=== PATIENT | female | born 1965 | race Caucasian/White ===

== ENCOUNTER 2022-06-21 17:53 | Emergency (ER) | payer OTHER, SELFPAY ==
[2022-06-21 18:19] VITALS: BP 135/81; PULSE 85; RESP 16; TEMP 36.6; O2SAT 98; BMI 33.5
--- NOTE | 2022-06-21 19:16 | CRLHL7_ITS ---
For Patients: As a result of the Century Cures Act, medical imaging exams and procedure reports are released immediately into your electronic medical record. You may view this report before your referring provider. If you have questions, please contact your health care provider. HISTORY: Cough. TECHNIQUE: Portable frontal view the chest. COMPARISON: None. FINDINGS: No airspace consolidation. No pleural effusion or pneumothorax. Pulmonary vasculature and cardiomediastinal silhouette are unremarkable. IMPRESSION: No cardiopulmonary abnormality. Dictated by Franco Baron MD @ 06/21/2022 8:08:46 PM (Electronically Signed)
--- OUTSIDE RECORDS SUMMARY | 2022-06-21 19:21 | XMS_ITS | Encounter Summary ---
:1965 Author Organization [employer] Address [address] [place] [address] Care Team Providers Name Role Phone Needs Pcp, Assignment Primary Care Provider Encounter Details Date Type Department Care Team Description 12/03/2021 delfina Nickerson [phone] Social History Tobacco Use Types Packs/Day Years Used Date Smoking Tobacco: Never Smokeless Tobacco: Never Sex Assigned at Date Recorded Not on file documented as of this encounter Progress Notes [facility], DELFINA PROVIDER - 12/03/2021 7:17 PM CDT delfina Treatment Plan Diagnosis Urinary Tract Infection Visit Date December 04, 2021 Lizzie He Date of : 65 Provider Rand Andrade, Nurse Practitioner Note From Provider Santosh Samuel,Thanks for using delfina. See the attached plan. I sent the Monurol to the pharmacy for you as it looks like we have the Macrobid on your allergy list currently. Hope you feel better soon, Melly Treatment Plan Since you have a bacterial infection, let's try an antibiotic. I sent a prescriptionto [facility] . I've also listed a few of the best ways to soothe your discomfortand some additional self-care tips to get you on the road to feeling better.If your symptoms don't improve after 3 days, or if you havequestions, please select Help to Request a Call Back andwe'll talk about your next steps for free. Order(s) Monurol 3 gram packet Take 1 packet by mouth single dose as directed for 1 day Note: Take as directed dissolved in water. Refills: None Sent To: [facility] [address] [id number] Treatment Plan Self Care Tip Topics Warm Packs Drink Water Avoid Caffeine What to Expect If you follow the recommendations I made on the Treatment tab, your symptomsshould improve in about 3 days. If your symptoms don'timprove after 3 days, or if you have questions, please select Help Jinest a Call Back and we'll helpdetermine your next step for free. What to Watch Out For Give us a call if you experience: ??? High fever ??? Shaking chills ??? Worsening pain with urination ??? Severe pain in your back, abdomen or pelvis My Conditions, Orders, Allergies as of December 04, 2021 Standard condition list Anxiety High Blood Pressure (Hypertension) High Cholesterol (Hyperlipidemia) Underactive Thyroid (Hypothyroid) Fibromyalgia Depression Current orders Monurol (fosfomycin tromethamine) Levoxyl (levothyroxine) Crestor (rosuvastatin) buspirone (buspirone) verapamil (verapamil) levothyroxine (levothyroxine) Cymbalta (duloxetine) Allergies Macrobid (nitrofurantoin monohyd/m-cryst), oral Ceftin (cefuroxime axetil), oral Bactrim (sulfamethoxazole-trimethoprim), oral Augmentin (amoxicillin-pot clavulanate), oral [facility] [facility] We are an online clinic open 02/03. If you have any questions or comments about this visit, please call or email [email or web address]. documented in this encounter Plan of Treatment Not on filedocumented as of this encounter Visit Diagnoses Not on filedocumented in this encounter Care Teams Broadcast Designer Relationship Specialty Start Date End Date Needs Pcp, Assignment PCP - General 11/15/21 [place] [address] documented as of this encounter
--- OUTSIDE RECORDS SUMMARY | 2022-06-21 19:21 | XMS_ITS | Encounter Summary ---
:1965 Author Organization [employer] Address [address] [place] [address] Care Team Providers Name Role Phone Unavailable Primary Care Provider Unavailable Reason for Visit Reason Comments DIZZINESS Encounter Details Date Type Department Care Team Description 03/16/2020 Nurse Triage Careline Unknown, Physician DIZZINESS [address] [place], [place] [address] [place] [address] [phone] (Wo rk) Social History Tobacco Use Types Packs/Day Years Used Date Smoking Tobacco: Never Assessed Sex Assigned at Date Recorded Not on file documented as of this encounter Nursing Notes Nitza Vasquez RN - 03/16/2020 8:03 PM CDT Verified patient identity: yes Situation/Background (brief explanation of current symptoms/situation): Pt states she was diagnosed with kidney infection yesterday. She was started on levofloxacin. States her dizziness and back pain are worse. No fever. Does the patient currently have any of these Covid symptoms? (Shortness of Breath/Difficulty of breathing, Sore Throat, Fever, Cough, New loss of smell or loss of taste) No Covid19 Symptoms - Other symptoms If directing the patient to schedule an appointment or be seen in the appropriate urgent care: In the last 14 days have you had close contact with a person known to have COVID-19 or been instructed to self-isolate? No and negative for COVID symptoms - okay to schedule or send to any site Reviewed with patient pertinent medical history(as it related to the call): Yes kidney infection. Reviewed with patient pertinent medications (as they relate to call): Yes Reviewed with patient pertinent allergies (as they relate to call): Yes Reason for Disposition ? ? [1] Taking antibiotics > 24 hours AND [2] symptoms WORSE Protocols used: INFECTION ON ANTIBIOTIC FOLLOW-UP SKPA-HAEBY-TI PLAN: Advised patient to be seen at the ED or to call her PCP office for further recommendation. Patient verbalized understanding and agrees with plan. Advised patient/caller to call back CareLine if there are further questions. The CareLine is available 02/03. Nitza Vasquez RN 03/16/2020, 8:10 PM Cielo Gonzalez - 03/16/2020 7:59 PM CDT Verified patient identity using three identifiers: Yes Caller's relationship to patient: Self At which care system or clinic is the patient normally seen? [facility] Symptoms Describe the reason for call/symptoms (include location and duration if applicable): pt states she was diagnosed with a kidney infection yesterday and today she feels very dizzy. Plan:Caller transferred directly to CareLine nurse. documented in this encounter Plan of Treatment Not on filedocumented as of this encounter Visit Diagnoses Not on filedocumented in this encounter
--- OUTSIDE RECORDS SUMMARY | 2022-06-21 19:21 | XMS_ITS | Encounter Summary ---
:1965 Author Organization [facility] Address [address] [facility] [address] Care Team Providers Name Role Phone Harriet Haley MD Primary Care Provider [phone] Reason for Visit Reason Comments Urgent Care Dysuria Frequency, Urgency, Hesitanc y, Odor, Nuctoria x4, Pelvic pain, back pain, L flank pain x2 days. Encounter Details Date Type Department Care Team Description 05/12/[address] [facility] Darshan German, Acute c ystitis without hematuria (Primary Dx); Urgent Care Shaan kelly PA-C Dysuria [address] [place] [address] [phone] Social History Tobacco Use Types Packs/Day Years Used Date Smoking Tobacco: Former Cigarettes Quit : 09/15/2015 Smokeless Tobacco: Never Alcohol Use Standard Drinks/Week Comments Yes 0 (1 standard drink = 0.6 oz pure alcoho l) SMALL Sex Assigned at Date Recorded Not on file documented as of this encounter Last Filed Vital Signs Vital Sign Reading Time Taken Comments Blood Pressure 132/72 05/12/2017 7:51 PM CDT Pulse 90 05/12/2017 7:51 PM CDT Temperature 36.8 ??C (98.2 ??F) 05/12/2017 7:51 PM CDT Respiratory Rate - - Oxygen Saturation 97% 05/12/2017 7:51 PM CDT Inhaled Oxygen Concentration - - Weight - - Height - - Body Mass Index - - documented in this encounter Progress Notes Darshan German PA-C - 05/12/2017 7:35 PM CDT SUBJECTIVE: Lizzie He is a 51 year old female who presents today for a possible UTI. Symptoms of dysuria, urgency, frequency, hesitancy, suprapubic pain and pressure and nausea have been going on for 2day(s). Hematuria no. sudden onset and still presentand moderate. There is no history of fever, chills, nausea or vomiting. No history of vaginal discharge. This patient does have a remote, intermittant history of urinary tract infections. Patient denies long duration, rigors, flank pain, temperature > 101 degrees F. and Vomiting, significant nausea or diarrhea or vaginal discharge Past Medical History: Diagnosis Date ??? Anxiety ??? Cerebral infarction (H) ??? Depressive disorder ??? Herpes zoster without mention of complication ??? Migraine, unspecified, without mention of intractable migraine without mention of status migrainosus ??? Thyroid disease Current Outpatient Prescriptions Medication ??? ciprofloxacin (CIPRO) 500 MG tablet ??? azithromycin (ZITHROMAX) 250 MG tablet ??? predniSONE (DELTASONE) 20 MG tablet ??? traMADol (ULTRAM) 50 MG tablet ??? order for DME ??? ARIPiprazole (ABILIFY) 2 MG tablet ??? ASPIRIN NOT PRESCRIBED (INTENTIONAL) ??? order for DME ??? oxyCODONE (ROXICODONE) 5 MG immediate release tablet ??? acetaminophen (TYLENOL) 500 MG tablet ??? ibuprofen (ADVIL,MOTRIN) 600 MG tablet ??? order for DME ??? Verapamil HCl (CALAN SR PO) ??? DULoxetine HCl (CYMBALTA PO) ??? LEVOTHYROXINE SODIUM PO No current facility-administered medications for this visit. Social History Substance Use Topics ??? Smoking status: Former Smoker Quit date: 09/15/2015 ??? Smokeless tobacco: Never Used ??? Alcohol use 0.0 oz/week 0 Standard drinks or equivalent per week Comment: SMALL ROS: Review of systems negative except as stated above. OBJECTIVE: BP 132/72 (BP Location: Right arm, Patient Position: Chair, Cuff Size: Adult Regular) Pulse 90 Temp 98.2 ??F (36.8 ??C) (Oral) SpO2 97% GENERAL APPEARANCE: healthy, alert and no distress RESP: lungs clear to auscultation - no rales, rhonchi or wheezes CV: regular rates and rhythm, normal S1 S2, no murmur noted ABDOMEN: soft, nontender She has suprapubic tenderness to palpation and reproduces her sense to urinate. BACK: No CVA tenderness SKIN: no suspicious lesions or rashes Lab: Results for orders placed or performed in visit on 05/12/17 Urine Microscopic Result Value Ref Range WBC Urine 5-10 (A) OTO2^O - 2 /HPF RBC Urine 10-25 (A) OTO2^O - 2 /HPF Squamous Epithelial /LPF Urine Few FEW^Few /LPF Bacteria Urine Few (A) NEG^Negative /HPF ASSESSMENT: Lower, uncomplicated urinary tract infection. PLAN: Drink plenty of fluids. Prevention and treatment of UTI's discussed. Signs and symptoms of pyelonephritis mentioned. Follow up with primary care physician if not improving Risks and benefits of medication(s) gone over. Patient voiced understanding. Specifically went over risks of fluoroquinolone of, but not limited to, early or late tendon ruptureand complications. Patient voiced understanding. Acute cystitis without hematuria - ciprofloxacin (CIPRO) 500 MG tablet; Take 1 tablet (500 mg) by mouth 2 times daily for 10 days Dispense: 20 tablet; Refill: 0 documented in this encounter Nursing Notes Rachna Alston CMA - 05/12/2017 7:35 PM CDT Images from the original note were not included. Chief Complaint Patient presents with ??? Urgent Care ??? Dysuria Initial BP 132/72 (BP Location: Right arm, Patient Position: Chair, Cuff Size: Adult Regular) Pulse 90 Temp 98.2 ??F (36.8 ??C) (Oral) SpO2 97% Estimated body mass index is 33.45 kg/(m^2) as calculated from the following: Height as of 09/28/16: 5' 8 (1.727 m). Weight as of 09/28/16: 220 lb (99.8 kg). Medication Reconciliation: complete Rachna Alston CMA (AAMA) documented in this encounter Plan of Treatment Not on filedocumented as of this encounter Procedures Procedure Name Priority Date/Time Associated Diagnosis Comme nts URINE MICROSCOPIC Routine 05/12/2017 7:50 PM Dysuria Resu lts for this CDT procedure are i n the results section. documented in this encounter Results (ABNORMAL) Urine Microscopic (05/12/2017 7:50 PM CDT) [facility] gist Method Time Signature WBC Urine 5-10 (A) OTO2^O - 2 05/12/2017 [facility] /HPF 8:12 PM CDT [facility] RBC Urine 10-25 (A) OTO2^O - 2 05/12/2017 [facility] /HPF 8:12 PM CDT [facility] Squamous Few FEW^Few 05/12/2017 [facility] /LPF /LPF 8:12 PM CDT [facility] Bacteria Urine Few (A) NEG^Negati 05/12/2017 [facility] /HPF 8:12 PM CDT [facility] Specimen Anatomical Collection Method Collection Time Receive d Time (Source) Location / / Volume Laterality 05/12/2017 7:50 PM 7 7:51 CDT PM CDT Darshan German PA-C LAB - URINE ORDERABLES Performing Organization Address City/State/ZIP Code Phon e Number [facility] [id number] [place] [address] documented in this encounter Visit Diagnoses Diagnosis Acute cystitis without hematuria - Prima ry Acute cystitis Dysuria documented in this encounter Care Teams Educational Technologist Relationship Specialty Start Date End Date Harriet Haley MD PCP - General Physician Brand Coordinator 10/01/15 [facility] [address] [place] [address] documented as of this encounter
--- OUTSIDE RECORDS SUMMARY | 2022-06-21 19:21 | XMS_ITS | Encounter Summary ---
:1965 Author Organization [facility] Address [address] [place] [address] Care Team Providers Name Role Phone Unavailable Primary Care Provider Unavailable Encounter Details Date Type Department Care Team Description 05/01/2003 [place] Conversion Only [facility] [place] [address] [place] [address] Social History Tobacco Use Types Packs/Day Years Used Date Smoking Tobacco: Never Assessed Sex Assigned at Date Recorded Not on file documented as of this encounter Progress Notes Chon Beebe MD - 05/01/2003 12:01 AM CDT Progress Notes signed by Chon Beebe MD at 05/04/03 0906 Author: Chon Beebe MD Service: (none) Author Type: Physician Filed: 11/28/10 1608 Note Time: 05/01/03 0001 Status: Signed Bag Shop Worker: Chon Beebe MD (Physician) NAME: LIZZIE GRIFFITHS MR: [id number] ACCT: [id number] VISIT: [id number] DICTATING CLINICIAN: CHON BEEBE MD JOB: [id number] CLINIC PROGRESS NOTE DATE OF VISIT: 05/01/2003 SUBJECTIVE: She is a 37-year-old female complaining of having a migraine for about five days now. It is usually left sided. She is familiar with the headache she is having now. She has had some nasal congestion. The headache by now is pretty much diffuse. She has had some nausea and photophobia. She had some bloody discharge when she blew her nose. ADR/ALLERGIES: NONE. MEDICATIONS: Imitrex and Fioricet, which she tried, but is not helping. OBJECTIVE: VS: BP: 155/73. T: 96.6. P: 102. R: 16. The patient does not look ill, perhaps somewhat photophobic. HEENT: Unremarkable. No cervical lymphadenopathy. Neck is supple. Cranial nerves II-XII grossly intact. Power in upper and lower extremities grossly normal, with good symmetry. She is normal reflexic. ASSESSMENT: PLAN: I ordered for her Demerol 100 mg/Vistaril 50 mg IM. Upon discharge the patient was feeling much better. Will go home to take a nap and drink plenty of fluids. Come back on a per-needed basis. TT: CT: OS:[id number] C: 05/02/03 13:51 DOCUMENT: [id number] documented in this encounter Plan of Treatment Not on filedocumented as of this encounter Visit Diagnoses Not on filedocumented in this encounter
--- OUTSIDE RECORDS SUMMARY | 2022-06-21 19:21 | XMS_ITS | Encounter Summary ---
:1965 Author Organization [facility] Address [address] [place] [address] Care Team Providers Name Role Phone Unavailable Primary Care Provider Unavailable Encounter Details Date Type Department Care Team Description 10/28/2001 PN Conversion Only [facility] [place] [address] [address] [place] [address] [phone] Social History Tobacco Use Types Packs/Day Years Used Date Smoking Tobacco: Never Assessed Sex Assigned at Date Recorded Not on file documented as of this encounter Progress Notes Luis Enrique Mortensen - 10/28/2001 12:01 AM CST Progress Notes signed by Luis Enrique Mortensen MD at 06/11/022021 Author: Luis Enrique Mortensen MD Service: (none) Author Type: Physician Filed: 11/28/10 0457 Note Time: 10/28/01 0001 Status: Signed Starch Factory Laborer: Luis Enrique Mortensen MD (Physician) IMPRESSION: No dictation required. URI, otalgia. SUBJECTIVE: See Urgent Care shingle of 10/28/01. OBJECTIVE: N/A ASSESSMENT: 1. URI. 2. Otalgia. PLAN: Rapid strep test negative. Symptomatic care discussed using ibuprofen, Tylenol, fluids, and rest. Reassess as needed. TT: CT: DMR:[id number] C: DOCUMENT: [id number] Anjum Armstrong MBBS - 04/29/2001 12:01 AM CDT Progress Notes signed by Anjum Ziegler MD at 06/11/022021 Author: Anjum Ziegler MD Service: (none) Author Type: Physician Filed: 11/28/10 0053 Note Time: 04/29/01 0001 Status: Signed Starch Factory Laborer: Anjum Ziegler MD (Physician) IMPRESSION: No dictation required. URI. Sinusitis. SUBJECTIVE: This is a no dictation. See URI shingle. OBJECTIVE: See URI shingle. ASSESSMENT: 1. URI. 2. Sinusitis. PLAN: 1. Symptomatic care. 2. Increase fluids. 3. Decrease smoking or stop smoking. 4. the patient was given a prescription for amoxicillin 500 mg p.o. t.i.d. for 10 days. The patient will wait a few days before starting the antibiotics. If she starts getting better with decongestants and symptomatic care, she is not going to use the antibiotics. She understands the instructions. Will follow up with primary care physician in a week to 10 days. Return to clinic p.r.n. worsening symptoms. [facility]:[id number] C: DOCUMENT: [id number] Fatimah Valles MD - 05/03/1997 12:01 AM CDT Progress Notes signed by at 05/15/97 1703 Author: Fatimah Diego MD Service: (none) Author Type: (none) Filed: 11/27/10 0105 Note Time: 05/03/97 0001 Status: Signed Starch Factory Laborer: Graciela Salazar IMPRESSION: Headache with neck stiffness. SUBJECTIVE: The patient is a 31-year-old woman whose chief complaint is severe headache. She rates this a 10/10, which started earlier this morning and is worsening during the day. She is quite dizzy when she tries to sit up. She has pain in her ears and her frontal sinuses, and upper teeth. She did have upper respiratory infection symptoms last week. She is complaining of photophobia. She denies nausea. She said the headache is constant and involves the entire head at this time. She also complains of body aches and a stiff neck. She has not noted any fever, but she has been taking Tylenol for discomfort. She is also complaining of intermittent right hand numbness. No subjective body weakness. No history of migraine headaches. No history of injury. MEDICATIONS: None. ALLERGIES: None. OBJECTIVE: Temperature 98.4. Pulse 96. Respirations 20. Blood pressure 122/70. In general she appears quite ill, guarding her eyes from the light, lying on the examination table. HEENT: The pupils are equal, round, and reactive to light. EOMs are intact. Fundi appear normal. Neck muscles are tender to the touch. There is limited range of motion secondary to stiffness and pain. Heart and lung exam is normal. She is grossly neurologically intact. She is given 800 mg of ibuprofen. Water's view of the sinuses are negative. CBC with differential: White blood cell count slightly elevated at 11,400 with a left shift on the differential. ASSESSMENT: Headache with neck stiffness. PLAN: Patient was turned over to the care of Dr. Tomlinson, who evaluated her again in Urgent Care and admitted her to the hospital. [facility] NA Salazar [facility] - 03/02/1997 12:01 AM CDT Progress Notes signed by at 06/11/022021 Author: Graciela Conversion Service: (none) Author Type: (none) Filed: 11/27/10 0018 Note Time: 03/02/97 0001 Status: Signed Starch Factory Laborer: Graciela Salazar IMPRESSION: No dictation required. SUBJECTIVE: N/A OBJECTIVE: N/A ASSESSMENT: N/A PLAN: N/A [facility] SCHEDULED RESOURCE: JAMAAL BLANCAS / JÚNIOR. Rosie Colunga MD - 01/04/1997 12:01 AM CDT Progress Notes signed by Rosie Montano MD at 01/19/97 1236 Author: Rosie Montano MD Service: (none) Author Type: Physician Filed: 11/26/10 4777 Note Time: 01/04/97 0001 Status: Signed Starch Factory Laborer: Rosie Montano MD (Physician) IMPRESSION: Urinary tract infection. SUBJECTIVE: 30-year-old female had urinary symptoms starting a week ago. She was seen and prescription was Septra for bladder infection. [place] a little better for 2 days but still continues to have dysuria and some frequency. Denies any fever, chills, nausea or vomiting. No abdominal pain but some suprapubic discomfort. No flank pain or back pain. No vaginal discharge. No hematuria. PAST MEDICAL HISTORY: Negative. MEDICATIONS: Septra. Pyridium. ADVERSE DRUG REACTIONS: NONE. OBJECTIVE: T: 98.1. P: 68. R: 20. BP: 118/70. Abdomen is soft. There is mild suprapubic tenderness. There is no CVA tenderness. No flank pain. UA shows leukocytes esters positive 25 to 50 WBCs, moderate bacteria. ASSESSMENT: Urinary tract infection. PLAN: Patient's UA on 12/29 shows similar changes, 25 and 50 WBCs. As she continues with the infection, a urine culture was ordered and also prescription for Cipro 500 mg po bid x 7 days given. Recheck if any worsening, fevers develop. Call back in 2 days for the urine culture results. mkz Brandon Wagner MD - 12/29/1996 12:01 AM CDT Progress Notes signed by Brandon Wagner MD at 03/15/98 1332 Author: Brandon Wagner MD Service: (none) Author Type: Physician Filed: 11/26/10 2671 Note Time: 12/29/96 0001 Status: Signed Starch Factory Laborer: Brandon Wagner MD (Physician) IMPRESSION: Cystitis. SUBJECTIVE: L[age]hcq-ypyy-old female who is complaining of urinary frequency, burning. Evidently did have a bladder infection first time about a month ago. Has no vaginal symptoms at this time. Has some abdominal discomfort, minimal back discomfort but has had no fever. OBJECTIVE: Positive leukocyte esterase in the urine. ASSESSMENT: Cystitis. PLAN: Trimethoprim Sulfa DS 1 b.i.d. x 7 days. bls Darshan Helton MD - 11/14/1996 12:01 AM CDT Progress Notes signed by Darshan Dumont MD at 12/01/96 0911 Author: Darshan Dumont MD Service: (none) Author Type: Physician Filed: 11/26/10 3821 Note Time: 11/14/96 0001 Status: Signed [employer] Factory Laborer: Darshan Dumont MD (Physician) IMPRESSION: Urticaria. SUBJECTIVE: 31-year-old who broke out in hives on Thursday. 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 She was ill on Thursday with vomiting, nausea, and spent most of the day in bed. Thursday she felt better, but the hives have gradually spread. They were first noted on her hands and then spread to include essentially her entire body now. She is having no difficulty breathing, and feels fine on the outside, just itchy on the outside. Adverse Drug Reactions: None. Medications: None. OBJECTIVE: T: 98.6 P: 88 R: 16 BP: 130/80. She does have generalized urticaria. ENT unremarkable. Throat is clear. Tongue is normal size. Lungs are clear without wheezes. ASSESSMENT: Urticaria. PLAN: Claritin 10 qd for a week. Prednisone 20 bid for three days. She needs to follow up for recurrence. tlg Shayy Velasco MD - 10/05/1996 12:01 AM CST Progress Notes signed by Shayy Frias MD at 11/24/97 1517 Author: Shayy Frias MD Service: (none) Author Type: Physician Filed: 11/26/10 8502 Note Time: 10/05/96 0001 Status: Signed [employer] Laborer: Shayy Frias MD (Physician) IMPRESSION: Urinary tract infection. SUBJECTIVE: Mariusz Jeremy is a 30-year-old female who had acute onset of bladder spasms and dysuria today, with urgency. Associated with this is some discomfort into the back a bit lower than the flank area and discomfort in the upper abdomen that moves around to the lower abdomen. She has not vomited. She has not had diarrhea. Her last urine infection was a few years ago. In June she was seen with pelvic pain and dysuria with a negative Chlamydia, GC, and normal urine at that time, treated with TCN. She has the same sexual partner for the past eight months. Her last menstrual period was the end of August for three to four days. Her cycles have been increasing to just more than 30 days. In July it lasted for seven days with more heavy flow. However, the August period was of normal duration. Her last Pap was in November of last year and she has a plan for follow- up this year. She has had six pregnancies with two C-sections and four children. OBJECTIVE: T: 99. R: 24. P: 84. BP: 112/82. On exam, this is a healthy-appearing, slightly overweight female, grimacing somewhat in discomfort, but in no acute distress. She has no costovertebral angle tenderness. On abdominal exam, she has normal and quiet bowel sounds, no rebound or guarding, no masses felt. The tenderness is at the suprapubic area and it seems to be in the area of the bladder. On pelvic exam, she has a mild erythema around the lower perineum and anus with a few satellite papules onto the gluteal areas. There is no visible discharge. The vaginal mucosa itself looks normal. On bimanual exam there is no adnexal tenderness. However, she is tender when pressure involves the area of the bladder. Movement of the cervix does not increase the pain. There is a slight amount of normal-appearing discharge at the cervical os. A Chlamydia swab was taken from there and a vaginal swab for Sarah. The urinalysis was definitely positive with moderate blood, positive leukocyte esterase and 50-99 white blood cells per high powered field. The Sarah test was negative and the Chlamydia pending. ASSESSMENT: Urinary tract infection. PLAN: We have given her Trimethoprim sulfa double strength, 1 bid for 3 days with Pyridium 200 mg q 8 hours, 10 tablets, suggesting she may need two or three of these. She is to make a follow-up appointment with her primary provider. lap Kimberly Vences MD - 06/22/1996 12:01 AM CST Progress Notes signed by Kimberly Vences MD at 08/01/96 1843 Author: Kimberly Vences MD Service: (none) Author Type: Physician Filed: 11/26/102123 Note Time: 06/22/96 0001 Status: Signed [employer] Laborer: Kimberly Vences MD (Physician) IMPRESSION: Pelvic pain with dysuria. SUBJECTIVE: This woman has burning with urination and frequency over the last two days. She has had a little bit of itching and possible low back pain. She has had 10 days of lower abdominal pain. No fever. Bowel movements have been normal. MEDICATIONS: Ibuprofen. ALLERGIES: None. OBJECTIVE: Last menstrual period was 06/06/96. Blood pressure 104/86. Pulse 78. Respirations 16. Temperature 97.7. Abdomen: Bowel sounds are normal. There is tenderness to palpation in the right and left lower quadrants, and suprapubic area without guarding or rebound. The patient has had a tubal ligation. Pelvic examination shows a small amount of yellowish discharge in the os. Wet prep is negative. There is moderate pain with cervical motion. The uterus is mid-position and so the fundus is not palpable. There is bilateral adnexal tenderness without mass. Urinalysis today is normal. ASSESSMENT: Pelvic pain with dysuria. PLAN: I am concerned about the possibility of PID. A GC and Chlamydia tests are sent. Doxycycline 100 mg, #20, is prescribed. She is advised that her partner should be treated, or she should avoid intercourse until all the tests are back and she sees a communications operator. She will set up an appointment to be rechecked at the end of this week or early next week. TJ Evie Iqbal MD - 06/03/1996 12:01 AM CDT Progress Notes signed by Evie Vyas MD at 06/19/96 1643 Author: Evie Vyas MD Service: (none) Author Type: Physician Filed: 11/26/102111 Note Time: 06/03/96 0001 Status: Signed [employer] Factory Laborer: Evie Vyas MD (Physician) IMPRESSION: Mild acne, benign nevi, recurrent nevus, skin tags. SUBJECTIVE: Mariusz Loyola is a 30-year-old female here for moles on her left axilla, abdomen, left neck and posterior neck. They have been present for as long as she can remember. Some of them increase in size with . She also has a rash consisting of acne-like bumps on her face and chest. She notes blackheads and whiteheads in particular. This has been a problem for the last one to two years. The mole in her suprapubic area rubs against her clothing as well as the one on her left foot. She had a mole removed on her left forehead that was burned off and has regrown. She dislikes the terminal hairs that emanate from within it. It occasionally becomes irritated. She is on Lysine. No known adverse drug reactions. It is unclear whether there is a family history of melanoma but there is a history of some type of skin cancer in the patient's uncle. OBJECTIVE: On examination, on the patient's left forehead is a 4 x 3 mm, dome-shaped, light brown pigmented papule with some evidence of scarring. She has some central terminal hairs emanating from within it. It is well circumscribed. She has skin-colored, pedunculated soft papules on her left neck and a number in the left axilla. On her suprapubic area is a 7 x 7 mm, soft, skin-colored papule. She has a similarly-appearing lesion on her left dorsal foot and on her face are a scattering of closed comedones. On the lateral temples and cheeks as well as on her chest, she has a very few small inflammatory papules. ASSESSMENT: 1) Mild acne, primarily comedonal. The patient was instructed on proper acne-prone skin care. She has trouble with various moisturizers causing irritation or breakouts. She will use Cleocin T lotion b.i.d. and Benzac AC 2 1/2% gel very sparingly one to two times a day. Discussed irritation and bleaching of clothing. 2) Skin tags on neck and axilla. Reassurance given. A number of the lesions in the axilla were treated with liquid nitrogen. 3) Benign nevi, suprapubic area and foot. The lesion on the suprapubic area was removed by shave biopsy means after discussion of the bleeding, infection, scarring, the rare side effects of local anesthesia and recurrence. It was removed because it was being irritated by clothing. 2% lidocaine with epinephrine was used for local anesthesia and aluminum chloride hemostasis was obtained. Antibacterial ointment, Band-Aid and wound care instructions were given. She will return in the future for the left foot lesion if it is bothersome enough. 4) Recurrent nevus, left forehead. Clinically this looks fine. Discussed electrolysis for the terminal hair growth. PLAN: N/A. cc: Evie Vyas M.D., Dermatology, [place]. [facility]/[id number] ERCIAL ACCOUNT EXECUTIVE [facility], [facility] - 02/03/1996 12:01 AM CDT Progress Notes signed by at 06/11/022021 Author: Graciela Conversion Service: (none) Author Type: (none) Filed: 11/26/102001 Note Time: 02/03/96 0001 Status: Signed [employer] Laborer: Graciela Salazar IMPRESSION: No dictation required. SUBJECTIVE: N/A OBJECTIVE: N/A ASSESSMENT: N/A PLAN: N/A [facility] SCHEDULED RESOURCE: JAMAAL BLANCAS / JÚNIOR. ERCIAL ACCOUNT EXECUTIVE Conversion, [facility] - 12/02/1995 12:01 AM CDT Progress Notes signed by at 06/11/022021 Author: Graciela Conversion Service: (none) Author Type: (none) Filed: 11/26/101925 Note Time: 12/02/95 0001 Status: Signed [employer] Laborer: Graciela Salazar IMPRESSION: No dictation required. SUBJECTIVE: N/A OBJECTIVE: N/A ASSESSMENT: N/A PLAN: N/A [facility] SCHEDULED RESOURCE: JAMAAL BLANCAS / JÚNIOR. Darshan Padilla MD - 10/19/1995 12:01 AM CST Progress Notes signed by Darshan Dumont MD at 11/01/95 1626 Author: Darshan Dumont MD Service: (none) Author Type: Physician Filed: 11/26/10 1900 Note Time: 10/19/95 0001 Status: Signed [employer] Laborer: Darshan Dumont MD (Physician) IMPRESSION: Hip and knee contusions. 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 There's a little soreness in her right shoulder. She was stunned and laid there for about 5 minutes, she thinks. She called for help, no one was around, so she eventually got up. She went to class today and was evaluated by her supervisors, who thought she should be seen. She has some occasional numbness in her left leg below her knee laterally. ADVERSE DRUG REACTIONS: None. MEDICATIONS: Ibuprofen. OBJECTIVE: T: 99.6. P: 84. R: 16. BP: 134/84. She has good range of motion of her upper extremities, some mild soreness in her left shoulder. Strength, sensation, reflexes are normal. She has some tenderness diffusely over her left hip. She has marked tenderness over the lateral aspect of her knee. There's no instability. There's some pain with valgus stress. Strength, sensation, and reflexes are intact, although there is some swelling over the fibular head in the area of the peroneal nerve. X-ray of her hip and knee are done, which are normal. ASSESSMENT: Hip and knee contusions. PLAN: Discussed symptomatic therapy, crutch-walking, anti- inflammatories, Tylenol #3 for pain. She'll follow up as needed. pjv Penny Lau MD - 10/05/1995 12:01 AM CST Progress Notes signed by Penny Isaacs MD at 10/23/95 1220 Author: Penny Isaacs MD Service: (none) Author Type: Physician Filed: 11/26/10 1852 Note Time: 10/05/95 0001 Status: Signed [employer] Factory Laborer: Penny Isaacs MD (Physician) IMPRESSION: 1. Otitis media. 2. Sinusitis. 3. Rash. SUBJECTIVE: Mariusz is a 29-year-old who has had sinus congestion, purulent nasal drainage, and a cough for one week. She has pain above the teeth and behind the eyes. There has been no fever. She does smoke. She has also had a pruritic rash on the chest and right forearm. She is also complaining of a couple of lesions on her face and some bloody drainage when she blows her nose. MEDICATIONS: None. ALLERGIES: None. Temperature 98.4. Pulse 72. Respirations 16. Blood pressure 124/84. OBJECTIVE: Left TM is erythematous and dull. Right is normal. She has tenderness over the bridge of the nose. Nasal mucosa looks inflamed and erythematous. There is no obvious sign of bleeding, and no scabs. Beneath the nose she has a crusted area that looks like an impetigo, as well as under her right eye. Her lungs are clear. Cardiovascular: Regular rate and rhythm without murmur. She has an erythematous patch of scaling irregular border, measuring about dime- size. It is not exactly circular, on the upper chest. She has 1-2 mm, three small, erythematous maculopapular lesions on the right forearm. These on the chest could be consistent with tinea corporis or eczematous lesion. ASSESSMENT: 1. Otitis media. 2. Sinusitis. 3. Rash. PLAN: She is given Keflex 500 mg t.i.d. x two weeks. This could treat the impetiginous lesions as well as the sinusitis and otitis media. I gave her samples of Diprolene to be used on the body for the rash. If that does not show some signs of improvement in 3-5 days, she should uptwist spinner some [id number] Lotrimin. Also suggested using Bacitracin in the nose b.i.d., and add humidity to her home. [facility] Darshan Padilla MD - 04/15/1995 12:01 AM CDT Progress Notes signed by Darshan Dumont MD at 05/08/952029 Author: Darshan Dumont MD Service: (none) Author Type: Physician Filed: 11/26/10 1738 Note Time: 04/15/95 0001 Status: Signed Starch Factory Laborer: Drashan Dumont MD (Physician) IMPRESSION: Ankle strain/contusion. SUBJECTIVE: 29-year-old hit her left ankle three days ago. This was on a hard plastic milk case. Her toes are having spasms, and she is limping on occasion. She is on her feet all day with four kids. Temperature 99.3. Pulse 88. Respirations 16. Blood pressure 114/70. ALLERGIES: None. MEDICATIONS: Prozac. OBJECTIVE: She has tenderness over the lateral aspect of her ankle. Pain with inversion. ASSESSMENT: Ankle strain/contusion. PLAN: Air cast. Discussed symptomatic therapy. Follow up as needed. [facility] documented in this encounter Plan of Treatment Not on filedocumented as of this encounter Procedures Procedure Name Priority Date/Time Associated Comments Diagnosis STREP GROUP A Routine 10/28/2001 8:53 PM Results for this ANTIGEN TEST COMMERCIAL ACCOUNT EXECUTIVE procedure are i n the results section. BETA STREP FOLLOWUP Routine 10/28/2001 8:53 PM Re sults for this COMMERCIAL ACCOUNT EXECUTIVE procedure are i n the results section. ANC RESULT Routine 05/03/1997 4:17 PM Results f or this CONVERSION DEFAULT CDT procedure are in ORDER the results section. ANC RESULT Routine 10/19/1995 12:08 PM Results for this CONVERSION DEFAULT COMMERCIAL ACCOUNT EXECUTIVE procedure are in ORDER the results section. ANC RESULT Routine 10/19/1995 12:08 PM Results for this CONVERSION DEFAULT COMMERCIAL ACCOUNT EXECUTIVE procedure are in ORDER the results section. ANC RESULT Routine 04/15/1995 9:47 AM Results f or this CONVERSION DEFAULT CDT procedure are in ORDER the results section. documented in this encounter Results Strep Group A Antigen Test (10/28/2001 8:53 PM COMMERCIAL ACCOUNT EXECUTIVE) Analysis Performed At [facility] Time Signature Strep Group A Negative Negative HP CONVERSION Antigen Test Comment: Culture to follow. Specimen (Source) Anatomical Collection Method Collection Time Re ceived Time Location / / Volume Laterality 10/28/2001 8:53 PM COMMERCIAL ACCOUNT EXECUTIVE Luis Enrique M Festus MD LAB_1 Performing Organization Address City/State/ZIP Code Phon e Number HP CONVERSION Beta Strep Followup (10/28/2001 8:53 PM COMMERCIAL ACCOUNT EXECUTIVE) athologist Signature Strep Screen SEE TEXT HP CONVERSION Comment: Patient: MARIUSZ LOYOLA Rapid Strep Follow up Culture @ ? Collected: ?2052 Source: Throat ?Processed: ?2053 ? 1V Final Report ------ ?[id number] ??1332 No beta hemolytic Strep group A isolated . @ = Rapid F/U Cult Performed at [address] [place], [place] Specimen (Source) Anatomical Collection Method Collection Time Re ceived Time Location / / Volume Laterality 10/28/2001 8:53 PM COMMERCIAL ACCOUNT EXECUTIVE Luis Enrique Mortensen MD LAB_1 Performing Organization Address City/State/ZIP Code Phon e Number HP CONVERSION Anc Result Conversion Default Order (05/03/1997 4:17 PM CDT) Anatomical Region Laterality Modality Other Specimen (Source) Anatomical Location Collection Method / Collectio n Time Received Time / Laterality Volume Narrative 05/03/1997 4:17 PM CDT CLINICAL DATA: ?DIZZINESS, EAR AND FACIAL PAIN FOR 5 DAYS FINDINGS: ?? S3 ?? LIMITED EXAMINATION SHOWS NO RADIOGR APHIC ABNORMALITY OF THE ?? VISUALIZED PARANASAL SINUSES. TECH-ID : ? JOSE TRANS-ID: Procedure Note Ronni Garza - 10/17/2016 CLINICAL DATA: DIZZINESS, EAR AND FACIAL PAIN FOR 5 DA YS FINDINGS: S3 LIMITED EXAMINATION SHOWS NO RADIOGRAPH IC ABNORMALITY OF THE VISUALIZED PARANASAL SINUSES. TECH-ID : JOSE TRANS-ID: Fatimah Diego MD RAD GD Anc Result Conversion Default Order (10/19/1995 12:08 PM COMMERCIAL ACCOUNT EXECUTIVE) Anatomical Region Laterality Modality Other Specimen (Source) Anatomical Location Collection Method / Collectio n Time Received Time / Laterality Volume Narrative 10/19/1995 12:08 PM COMMERCIAL ACCOUNT EXECUTIVE CLINICAL DATA: ?FELL ON THE ICE THIS AM FINDINGS: ?NO ACUTE BONE OR JOINT ABNORMALITY . ??THERE IS SOME MILD SCLEROSIS ?ABOUT THE LOWER PORTIONS OF BOTH S I JOINTS. ??SPINA BIFIDA OCCULTA OF ?S2--NORMAL VARIANT-- WELL SLI GHT DEVIATION OF THE COCCYX TO THE ?LEFT WHICH MAY REPRESENT DEVELOPME NTAL VARIANT OR OLD POST-TRAUMATIC ?CHANGE. TECH-ID : ? OO TRANS-ID: ? LAP Procedure Note Mario Arreola MD - 10/17/2016Format ting of this note might be different from the original. CLINICAL DATA: FELL ON THE ICE THIS AM FINDINGS: NO ACUTE BONE OR JOINT ABNORMALITY. THE RE IS SOME MILD SCLEROSIS ABOUT THE LOWER PORTIONS OF BOTH SI BENSON NTS. SPINA BIFIDA OCCULTA OF S2--NORMAL VARIANT-- WELL SLIGHT D EVIATION OF THE COCCYX TO THE LEFT WHICH MAY REPRESENT DEVELOPMENTAL VARIANT OR OLD POST-TRAUMATIC CHANGE. TECH-ID : OO TRANS-ID: LAP Darshan Dumont MD RAD GD Anc Result Conversion Default Order (10/19/1995 12:08 PM COMMERCIAL ACCOUNT EXECUTIVE) Anatomical Region Laterality Modality Other Specimen (Source) Anatomical Location Collection Method / Collectio n Time Received Time / Laterality Volume Narrative 10/19/1995 12:08 PM COMMERCIAL ACCOUNT EXECUTIVE CLINICAL DATA: ?FELL ON THE ICE THIS AM FINDINGS: ?NEGATIVE. TECH-ID : ? OO TRANS-ID: ? LAP Procedure Note Mario Arreola MD - 10/17/2016Format ting of this note might be different from the original. CLINICAL DATA: FELL ON THE ICE THIS AM FINDINGS: NEGATIVE. TECH-ID : OO TRANS-ID: LAP Darshan EASTON Anc Result Conversion Default Order (04/15/1995 9:47 AM CDT) Anatomical Region Laterality Modality Other Specimen (Source) Anatomical Location Collection Method / Collectio n Time Received Time / Laterality Volume Narrative 04/15/1995 9:47 AM CDT CLINICAL DATA: ?HIT L OUTER ANKLE 3 DAYS AGO, PAIN RADIATING UP LEG AND ?NUMBNESS IN TOES FINDINGS: ?NEGATIVE. TECH-ID : ? 25 TRANS-ID: ? LEB Procedure Note Mario Arreola MD - 10/17/2016Format ting of this note might be different from the original. CLINICAL DATA: HIT L OUTER ANKLE 3 DAYS AGO, PAIN RADI ATING UP LEG AND NUMBNESS IN TOES FINDINGS: NEGATIVE. TECH-ID : 25 TRANS-ID: LEB Darshan EASTON documented in this encounter Visit Diagnoses Not on filedocumented in this encounter
--- OUTSIDE RECORDS SUMMARY | 2022-06-21 19:21 | XMS_ITS | Encounter Summary ---
:1965 Author Organization [place] Address [address] [place] [address] Care Team Providers Name Role Phone Harriet Haley MD Primary Care Provider [phone] Reason for Visit Reason Comments RECHECK Encounter Details Date Type Department Care Team Description 07/08/2016 Office Visit [facility] Magui, Jossy Villaseñor, ress fracture of Sports Medicine DO metatarsal bone of [facility] [place] [facility] left foot with [id number] [employer] [facility] routine healing [address] (Primary Dx) [place] [address] [address] [place], [place] [address] (Wo rk) Social History Tobacco Use Types Packs/Day Years Used Date Smoking Tobacco: Former Cigarettes Quit : 09/15/2015 Smokeless Tobacco: Never Alcohol Use Standard Drinks/Week Comments Yes 0 (1 standard drink = 0.6 oz pure alcoho l) SMALL Sex Assigned at Date Recorded Not on file documented as of this encounter Last Filed Vital Signs Vital Sign Reading Time Taken Comments Blood Pressure 146/80 07/08/2016 11:03 AM DIRECTOR OF COMPENSATION Pulse 101 07/08/2016 11:03 AM DIRECTOR OF COMPENSATION Temperature - - Respiratory Rate - - Oxygen Saturation - - Inhaled Oxygen Concentration - - Weight 99.8 kg (220 lb) 07/08/2016 11:03 AM DIRECTOR OF COMPENSATION Height 172.7 cm (5' 8) 07/08/2016 11:03 AM DIRECTOR OF COMPENSATION Body Mass Index 33.45 07/08/2016 11:03 AM DIRECTOR OF COMPENSATION documented in this encounter Patient Instructions Patient InstructionsJossy Kilgore DO - 07/08/2016 11:57 AM CST Thank you for allowing us to participate in your care today. Please find below your visit diagnosis and the plan going forward. 1. Stress fracture of metatarsal bone of left foot with routine healing Discussed your history, pain and exam In regards to stress injury - you appears to be doing well. Continue with boot as previously. In regards to great toe - currently 3 days out. Xray reviewed and no obvious fracture. Re-reviewed MRI from 7 weeks ago and no evidence of stress/marrow edema. Will not repeat MRI at this time given that treatment would be protected weightbearing. If not improving over 2 weeks or worsening then will consider repeat MRI. Follow up on MyChart in regards to great toe. If doing well, then follow-up in 3-4 weeks to access stress injury (sooner if needed; call direct clinic number [[phone]] at any time with questions or concerns) Jossy Kilgore DO CAQSM [facility] CTOR OF COMPENSATION documented in this encounter Progress Notes Jossy Kilgore DO - 07/08/2016 11:04 AM CST [facility] Visit Jul 08, 2016 PCP: Harriet Haley Subjective: Lizzie He is a 50 year old female who is seen in follow-up for Stress fracture of metatarsal bone of left foot with routine healing that began 10 week(s) ago. They were last seen 06/09/2016. The patient is seen by themselves. They are returning to clinic as directed from previous visit. Since their last visit she has been wearing her boot very consistently especially early on. She indicates that her foot was feeling better,so she was occasioanlly not wearing her boot at home. She reports that on 07/06/2016 she had gotten home from work, took her boot off to rest, went to stand up to change clothes and felt a pop in her big toe that sent pain all the way up her body. She was seen at urgent care who took xrays (see below), prescribed Farwell and gave her crutches. She used the crutches until she got home. They indicate that their pain level is 6/10. They have tried CAM Boot, norco (from Urgent Care). Patient's past medical, surgical, social, and family histories were reviewed today and no changes are noted. Review of Systems: Constitutional: NEGATIVE for fever, chills, change in weight Skin: NEGATIVE for worrisome rashes, moles or lesions GI/: NEGATIVE for bowel or bladder changes Neuro: NEGATIVE for weakness, dizziness or paresthesias Objective: BP 146/80 mmHg Pulse 101 Ht 5' 8 (1.727 m) Wt 220 lb (99.791 kg) BMI 33.46 kg/m2 General: healthy, alert and in no distress HEENT: no scleral icterus or conjunctival erythema Skin: no suspicious lesions or rash. No jaundice. CV: No pedal edema Resp: normal respiratory effort without conversational dyspnea Psych: normal mood and affect Gait: Not wearing her cam Walker today Neuro: Motor strength as noted below, decreased sensation over lateral aspect of great toe and medial aspect of 2nd phalanx, including webspace. Remainder of foot has normal sensation. MSK: LEFT FOOT Inspection: ?? No swelling over distal foot / metatarsal heads. Trace swelling over great toe/medial aspect of the foot. Palpation: ?? Tender over distal 3rd met, less tender over 2nd. No longer tender over the distal 4th met. Tender over distal aspect of 1st met. Non-tender over phalanx of great toe. Range of Motion: ?? Full ROM of the ankle Strength: ??Ankle strength - grossly intact Independent visualization of the below image: LEFT FOOT THREE OR MORE VIEWS?? 07/06/2016 10:55 AM ? HISTORY: Pain in left toe(s). ?? COMPARISON: May 08, 2016. ? IMPRESSION: Bones are normally aligned. Moderate inferior calcaneal heel spur. No acute fracture. ? FABRICE ORNELAS MD ASSESSMENT & PLAN ICD-10-CM 1. Stress fracture of metatarsal bone of left foot with routine healing M84.375D Currently 10.4 weeks from date of injury, 4 weeks from when she started wearing the boot consistently. MRI dated 06/16 confirmed stress reaction. Was doing well and painfree in the boot regarding stress injuries in 2nd and 3rd met. No resting pain. Had an acute injury to big toe - stubbed it appx 2 weeks ago (no noticable/persistent pain at that time) but then 3 days ago stood up outside of the boot and had immediate pain in the great toe. In regards to stress injury - appears to be doing well. Has essentially been compliant in the boot x4 weeks. sliver lap tender on palpation. Continue with boot as previously. In regards to great toe - currently 3 days out. Xray personally reviewed and no obvious fracture. Re-reviewed MRI from 7 weeks ago and no evidence of stress/marrow edema. Will not repeat MRI at this time given that treatment would be protected weightbearing. If not improving over 2 weeks or worsening then consider repeat MRI. Follow up in 4 weeks. Call direct clinic number [phone] at any time with questions or concerns.Instructed to call the office if the condition evolves or worsens. Patient's conditions were thoroughly discussed during today's visit with greater than 50% of the visit spent counseling the patient with total time spent [id number] with the patient being 25 minutes. Jossy Kilgore DO [facility] CTOR OF COMPENSATION documented in this encounter Nursing Notes Carlos Roth - 07/08/2016 11:04 AM CST Chief Complaint Patient presents with ??? RECHECK Initial BP 146/80 mmHg Pulse 101 Ht 5' 8 (1.727 m) Wt 220 lb (99.791 kg) BMI 33.46 kg/m2 Estimated body mass index is 33.46 kg/(m^2) as calculated from the following: Height as of this encounter: 5' 8 (1.727 m). Weight as of this encounter: 220 lb (99.791 kg). BP completed using cuff size: mamadou Roth ATC CTOR OF COMPENSATION documented in this encounter Plan of Treatment Not on filedocumented as of this encounter Visit Diagnoses Diagnosis Stress fracture of metatarsal bone of le ft foot with routine healing - Primary documented in this encounter Care Teams Acute Coordinator Relationship Specialty Start Date End Date Harriet Haley MD PCP - General Physician Licensed Tax Consultant 10/01/15 [facility] [address] [place] [address] documented as of this encounter
--- OUTSIDE RECORDS SUMMARY | 2022-06-21 19:21 | XMS_ITS | Encounter Summary ---
:1965 Author Organization [place] Address [address] [place] [address] Care Team Providers Name Role Phone Harriet Haley MD Primary Care Provider [phone] Reason for Visit Reason Onset Date Comments Foot Pain 07/10/2016 Encounter Details Date Type Department Care Team Description 07/10/2016 Telephone [facility] Jossy Florentino DO Foot Pain Medicine [facility] [place] [address] [address] [facility] [address] [place] [address] [place] [address] [phone] (Wo rk) Social History Tobacco Use Types Packs/Day Years Used Date Smoking Tobacco: Former Cigarettes Quit : 09/15/2015 Smokeless Tobacco: Never Alcohol Use Standard Drinks/Week Comments Yes 0 (1 standard drink = 0.6 oz pure alcoho l) SMALL Sex Assigned at Date Recorded Not on file documented as of this encounter Miscellaneous Notes Telephone Encounter - Kalyani Cardona RN - 07/10/2016 5:05 PM CST Patient left voicemail stating Dr Kilgore was to send a prescription to the pharmacy for tramadol. Not sure if she has sent it yet. Prescription called to [facility] and left message informing patient. Erasmo Cardona RN TRIC WELDER HELPER Telephone Encounter - Carlos Roth - 07/10/2016 12:30 PM CST I called lizzie to verify that her pain is radiating from the foot up and not the back down. She reports that it indeed is the foot up radiating. She indicates that her foot is about the same as the other day when she was in, therefore still no new imaging needed. I spoke with Dr. Kilgore and she approved a refill for Tramadol. This was added and forwarded for signature. Carlos Roth ATC Approved, printed and signed. Jossy Kilgore DO, [facility] TRIC WELDER HELPER Telephone Encounter - Kalyani Cardona RN - 07/10/2016 8:56 AM CST Reason for Call: patient calls stating she saw Dr. Kilgore on 07/08/16. Had been doing well with painup until last night. Left foot/leg and back started hurting last night. Worked a 12 hr shift and just got home. She took her boot off this am and foot is throbbing. Pain radiates up both anterior and posterior leg to back. Has previous back issues that she thinks are aggravated by wearing the boot. Has been wearing a high soled clog on the right foot to help compensate. Having pain while lying down. Wanting to know what she can take for pain so she can sleep. Slight swelling on top of left great toe. Denies redness. Current Treatments: ibuprofen 800mg around 6 am without relief. Treatment plan from prior OV: In regards to stress injury - appears to be doing well.?? Has essentially been compliant in the boot x 4 weeks.?? strapping machine tender on palpation.?? Continue with boot as previously. In regards to great toe - currently 3 days out.?? Xray personally reviewed and no obvious fracture. Re-reviewed MRI from 7 weeks ago and no evidence of stress/marrow edema.?? Will not repeat MRI at this time given that treatment would be protected weightbearing.?? If not improving over 2 weeks or worsening then consider repeat MRI. Follow up in 4 weeks. Recommended she ice and elevate at this time. Last OV date: 07/08/16 Next OV Date: Visit date not found Patient expecting call back: Yes Preferred contact number: , ok to lm Please advise. Erasmo Cardona, RN TRIC WELDER HELPER documented in this encounter Plan of Treatment Not on filedocumented as of this encounter Visit Diagnoses Diagnosis Stress fracture of right foot with routi ne healing, subsequent encounter - Primary documented in this encounter Care Teams Insurance Adjustor Relationship Specialty Start Date End Date Harriet Haley MD PCP - General Physician Pattern Assembler 10/01/15 [facility] [address] [place] [id number] documented as of this encounter
--- OUTSIDE RECORDS SUMMARY | 2022-06-21 19:21 | XMS_ITS | Encounter Summary ---
:1965 Author Organization [facility] [employer] Address [address] [place] [address] Care Team Providers Name Role Phone Unavailable Primary Care Provider Unavailable Encounter Details Date Type Department Care Team Description 12/07/1995 PN Conversion Only [place]EC[facility]AL[place] [address] [place] [address] (Wo rk) Social History Tobacco Use Types Packs/Day Years Used Date Smoking Tobacco: Never Assessed Sex Assigned at Date Recorded Not on file documented as of this encounter Plan of Treatment Not on filedocumented as of this encounter Procedures Procedure Name Priority Date/Time Associated Comments Diagnosis CONVERSION DEFAULT Routine 12/02/1995 2:20 PM Res ults for this INTERFACE ORDER CDT procedure ar e in the results section. documented in this encounter Results Conversion Default Interface Order (12/02/1995 2:20 PM CDT) P athologist Signature PAP Smear See Detail HP CONVERSION Comment: NAME:LIZZIE LOYOLA ?CERVICAL CYTOLOGY REPORT Pathology # ??[id number] ?Date Obtained: ?Date Received: LMP: ?11-20-95 CLINICAL HIST ? 1ST HERE. CERVICAL SMEAR SPECIMEN ADEQUACY: ?? Satisfactory. ENDOCERVICAL CELLS: ??Present. CYTOLOGIC IMPRESSION: Within Normal Limits (Negative). Verified 12/09/95 by: ??LL ? (electronic signature) Elijah WITT M.D., Director of Cyt opathology Specimen (Source) Anatomical Collection Method Collection Time Re ceived Time Location / / Volume Laterality 12/02/1995 2:20 PM CDT Lab Conversion LAB_1 Performing Organization Address City/State/ZIP Code Phon e Number HP CONVERSION documented in this encounter Visit Diagnoses Not on filedocumented in this encounter
--- OUTSIDE RECORDS SUMMARY | 2022-06-21 19:21 | XMS_ITS | Encounter Summary ---
:1965 Author Organization [facility] Address [address] [place] [address] Care Team Providers Name Role Phone Unavailable Primary Care Provider Unavailable Encounter Details Date Type Department Care Team Description 10/10/2005 PN Conversion Only [place] [facility] [address] [facility] [place] [address] Social History Tobacco Use Types Packs/Day Years Used Date Smoking Tobacco: Never Assessed Sex Assigned at Date Recorded Not on file documented as of this encounter Plan of Treatment Not on filedocumented as of this encounter Visit Diagnoses Not on filedocumented in this encounter
--- OUTSIDE RECORDS SUMMARY | 2022-06-21 19:21 | XMS_ITS | Encounter Summary ---
:1965 Author Organization [email or web address] Address [address] [place] [address] Care Team Providers Name Role Phone Unavailable Primary Care Provider Unavailable Reason for Visit Reason Comments INFECTION, KIDNEY VOMITING Encounter Details Date Type Department Care Team Description 03/18/2020 Nurse Triage Careline Unknown, INFECTION, KIDNEY; [address] Physician VOMITING [place], [place] [address] [phone] [place], [place] [id number] Social History Tobacco Use Types Packs/Day Years Used Date Smoking Tobacco: Never Assessed Sex Assigned at Date Recorded Not on file documented as of this encounter Nursing Notes Sarina Burdick RN - 03/18/2020 11:09 AM CDT Reason for Disposition ??? Patient sounds very sick or weak to the triager Protocols used: URINARY TRACT INFECTION ON ANTIBIOTIC FOLLOW-UP CALL - [id number] Pt to go back to Er at [facility] due to cloudy urine and back pain again and rapid pulse and nauseaagain after feeling better yesterday. Pt asked if in agreement with plan of care. Pt verbalized understanding and agreeable to plan. Pt advised to be seen immediately or call back if questions or problems or worsening sx. Susan Jc RN. Sarina Burdick RN - 03/18/2020 11:05 AM CDT Verified patient identity: yes Situation/Background (brief explanation of current symptoms/situation): Pt has a kidney infection and seen in Er thursday and yesterday she was ok and today she is vomiting. She continues to have side and back pain Nausea again today and back hurts again. Does the patient currently have any of [...] medical history(as it related to the call): There is no problem santino file for this patient. Bladder infection last and it turned into a kidney infection . Seen in ER Thursday night Reviewed with patient pertinent medications (as they relate to call): No current outpatient medications on file. No current facility-administered medications for this visit. She is taking levofloxacin 750 mg and taking it once a day for 10 days. Reviewed with patient pertinent allergies (as they relate to call): Allergies not on file Anitra Zimmerman - 03/18/2020 10:57 AM CDT Verified patient identity using three identifiers: Yes Caller's relationship to patient: Self At which care system or clinic is the patient normally seen? [facility] Symptoms Describe the reason for call/symptoms (include location and duration if applicable): Pt has treatment questions regarding vomiting - states that she has a kidney infection Plan:The current callback time to speak with a nurse is 3 hrs. If your symptoms change or worsen, orif you have not received a call back in the stated timeframe, please call us back documented in this encounter Plan of Treatment Not on filedocumented as of this encounter Visit Diagnoses Not on filedocumented in this encounter
--- OUTSIDE RECORDS SUMMARY | 2022-06-21 19:21 | XMS_ITS | Encounter Summary ---
:1965 Author Organization [facility] Address [address] [place] [address] Care Team Providers Name Role Phone Harriet Haley MD Primary Care Provider [phone] Reason for Visit Reason Onset Date Comments Patient Reminder 02/17/2018 Call for appointment 02/19/18 Encounter Details Date Type Department Care Team Description 02/17/2018 Telephone [facility] Jacy Arredondo, Patient Reminder (Call and IBD employee benefits administrator for appointment [address] [facility] 02/19/18) [address] [place] [address] [phone] Social History Tobacco Use Types Packs/Day Years Used Date Smoking Tobacco: Former Cigarettes Quit : 09/15/2015 Smokeless Tobacco: Never Alcohol Use Standard Drinks/Week Comments Yes 0 (1 standard drink = 0.6 oz pure alcoho l) SMALL Sex Assigned at Date Recorded Not on file documented as of this encounter Miscellaneous Notes Telephone Encounter - Jacy Arredondo LPN - 02/17/2018 3:28 PM CDT Called and left message reminding patient of appointment for 02/19/18 at 7:40AM. documented in this encounter Plan of Treatment Not on filedocumented as of this encounter Visit Diagnoses Not on filedocumented in this encounter Care Teams Furniture Packer Relationship Specialty Start Date End Date Harriet Haley MD PCP - General Physician Administrative Services Specialist 10/01/15 [facility] [address] [place] [address] documented as of this encounter
--- OUTSIDE RECORDS SUMMARY | 2022-06-21 19:21 | XMS_ITS | Encounter Summary ---
:1965 Author Organization [place] Address [address] [place] [address] Care Team Providers Name Role Phone Harriet Haley MD Primary Care Provider [phone] Encounter Details Date Type Department Care Team Description 04/15/2017 Radiant Appointment [facility] [place] [address] [id number] Social History Tobacco Use Types Packs/Day Years [...] Name Priority Date/Time Associated Diagnosis Comme nts XR FOOT RIGHT G/E 3 Routine 04/15/2017 8:11 PM Right foot pain Results for this VIEWS CDT procedure are i n the results section. documented in this encounter Results XR Foot Right G/E 3 Views (04/15/2017 8:11 PM CDT) Anatomical Region Laterality Modality Foot, Ankle Right Computed Radiography Specimen (Source) Anatomical Location Collection Method / Collectio n Time Received Time / Laterality Volume Impressions 04/16/2017 4:52 PM CDT IMPRESSION: 1. Question hammertoe deformity of the t hird and fourth toes. 2. No fracture or malalignment. YONATAN HAMLIN MD Narrative 04/16/2017 4:52 PM CDT RIGHT FOOT THREE OR MORE VIEWS ??04/15/2017 8:11 PM HISTORY: Pain in right foot. COMPARISON: Contralateral (left) foot x- rays dated 07/06/2016. FINDINGS: There is no fracture, joint sp britney loss, malalignment, or erosion. Mild hyperflexion of the third and fourth toe proximal interphalangeal joints could represent h ammertoe deformity in the appropriate clinical setting. This could also be secondary to positioning of the patient. Procedure Note Yonatan Hamlin MD - 04/16/2017Form atting of this note might be different from the original. RIGHT FOOT THREE OR MORE VIEWS 04/15/2017 8:11 PM HISTORY: Pain in right foot. COMPARISON: Contralateral (left) foot x- rays dated 07/06/2016. FINDINGS: There is no fracture, joint sp britney loss, malalignment, or erosion. Mild hyperflexion of the third and fourth toe proximal interphalangeal joints could represent h ammertoe deformity in the appropriate clinical setting. This could also be secondary to positioning of the patient. IMPRESSION: 1. Question hammertoe deformity of the t hird and fourth toes. 2. No fracture or malalignment. YONATAN HAMLIN MD Briana Banuelos MD IMG DIAGNOSTIC IMAGING ORDER NATALY documented in this encounter Visit Diagnoses Diagnosis Right foot pain Pain in limb documented in this encounter Care Teams Groundman/Lineman Relationship Specialty Start Date End Date Harriet Haley MD PCP - General Physician Oil Burner Mechanic 10/01/15 [facility] [address] [place] [address] documented as of this encounter
--- OUTSIDE RECORDS SUMMARY | 2022-06-21 19:21 | XMS_ITS | Encounter Summary ---
:1965 Author Organization [facility] Address [address] [place] [address] Care Team Providers Name Role Phone Harriet Haley MD Primary Care Provider [phone] Encounter Details Date Type Department Care Team Description 01/05/2021 Records - [facility] CONVERSION Provider, Histor ica Social History Tobacco Use Types Packs/Day Years [...] Name Priority Date/Time Associated Diagnosis Comme nts CT MISC FCIS ORDER Routine 05/26/2005 12:00 AM Re sults for this CDT procedure are i n the results section. CT MISC FCIS ORDER Routine 05/26/2005 12:00 AM Re sults for this CDT procedure are i n the results section. documented in this encounter Results CT Misc Order (05/26/2005 12:00 AM CDT) Anatomical Region Laterality Modality Computed Tomography Specimen (Source) Anatomical Location Collection Method / Collectio n Time Received Time / Laterality Volume Narrative 05/26/2005 12:00 AM CDT See Historical Hospital Medical Record f or documentation Procedure Note Provider, Historical - 01/05/2021Formatt ing of this note might be different from the original. See Historical Hospital Medical Record f or documentation Historical Provider IMG CT ORDERABLES CT Misc Order (05/26/2005 12:00 AM CDT) Anatomical Region Laterality Modality Computed Tomography Specimen (Source) Anatomical Location Collection Method / Collectio n Time Received Time / Laterality Volume Narrative 05/26/2005 12:00 AM CDT See Historical Hospital Medical Record f or documentation Procedure Note Provider, Historical - 01/05/2021Formatt ing of this note might be different from the original. See Historical Hospital Medical Record f or documentation Historical Provider IMG CT ORDERABLES documented in this encounter Visit Diagnoses Not on filedocumented in this encounter Care Teams Truck Assembler Relationship Specialty Start Date End Date Harriet Haley MD PCP - General Physician Wheel Aligner 10/01/15 [facility] [address] [place] [address] documented as of this encounter
--- OUTSIDE RECORDS SUMMARY | 2022-06-21 19:21 | XMS_ITS | Encounter Summary ---
:1965 Author Organization [facility] Address [address] [place] [address] Care Team Providers Name Role Phone Harriet Haley MD Primary Care Provider [phone] Reason for Visit Reason Comments Leg Pain bilateral leg pain and swell ing Encounter Details Date Type Department Care Team Description 06/26/2016 [facility] Rebecca Bean, Peripheral edema Emergency Dept [address] [facility] [place], [place] [address] [place] [address] [place] [address] [phone] (Wo rk) Social History Tobacco Use Types Packs/Day Years Used Date Smoking Tobacco: Former Cigarettes Quit : 09/15/2015 Smokeless Tobacco: Never Alcohol Use Standard Drinks/Week Comments Yes 0 (1 standard drink = 0.6 oz pure alcoho l) SMALL Sex Assigned at Date Recorded Not on file documented as of this encounter Last Filed Vital Signs Vital Sign Reading Time Taken Comments Blood Pressure 119/66 06/26/2016 11:46 PM PRODUCT SAFETY TEST ENGINEER Pulse 103 06/26/2016 8:56 PM PRODUCT SAFETY TEST ENGINEER Temperature 36.8 ??C (98.3 ??F) 06/26/2016 8:56 PM PRODUCT SAFETY TEST ENGINEER Respiratory Rate 14 06/26/2016 11:55 PM PRODUCT SAFETY TEST ENGINEER Oxygen Saturation 96% 06/26/2016 11:48 PM PRODUCT SAFETY TEST ENGINEER Inhaled Oxygen Concentration - - Weight 109.4 kg (241 lb 2.9 oz) 06/26/2016 8:56 PM PRODUCT SAFETY TEST ENGINEER Height 172.7 cm (5' 8) 06/26/2016 8:56 PM PRODUCT SAFETY TEST ENGINEER Body Mass Index 36.67 06/26/2016 8:56 PM PRODUCT SAFETY TEST ENGINEER documented in this encounter Discharge Instructions Discharge InstructionsVan Rebecca Casanova MD - 06/26/2016 11:39 PM PRODUCT SAFETY TEST ENGINEER Images from the original note were not included. Leg Swelling in Both Legs Swelling of the feet, ankles, and legs is called edema. It is caused by excess fluid that has collected in the tissues. Extra fluid in the body settles in the lowest part because of gravity. This is why the legs and feet are most affected. Some of the causes for edema include: ?? Disease of the heart like congestive heart failure ?? Standing or sitting for long periods of time. Sitting with your legs in the down position may do this. ?? Infection of the feet or legs ?? Blood pooling in the veins of your legs (venous insufficiency) ?? Dilated veins in your lower leg (varicose veins) ?? Garters or other clothing that is tight on your legs. This will cause blood to pool in your legs because the clothing limits blood flow. ?? Some medicines. These include hormones like control pills. They also include some blood pressure medicines like calcium channel blockers and steroids. Other medicines include some antidepressants like MAO inhibitors and tricyclics. ?? Menstrual periods that cause you to retain fluids ?? Many types of renal disease ?? Liver failure??or cirrhosis ?? . Some swelling is normal, but a sudden increase in leg swelling or weight gain can be asign of a dangerous complication of .. ?? Poor nutrition Medical treatment will depend on what is causing the swelling in your legs. Your health care provider may prescribe water pills (diuretics) to get rid of the extra fluid. Home care Follow these guidelines when caring for yourself at home: ?? Don't wear clothing like garters that is tight on your legs. ?? Keep your legs up while lying or sitting. ?? If infection, injury, or recent surgery is causing the swelling, stay off your legs as much as possible until symptoms get better. ?? If your health care provider says that your leg swelling is caused by venous insufficiency or varicose veins, don't sit or molding machine operator one place for long periods of time. Take breaks and walk about every few hours. Brisk walking is a good exercise. It helps circulate the blood that has collected in your leg. Talk with your provider about using support stockings to stop daytime leg swelling. ?? If your provider says that heart disease is causing your leg swelling, follow a low-salt diet to stop extra fluid from staying in your body. Follow-up care Follow up with your health care provider, or as advised. When to seek medical advice Call your health care provider right away if any of these occur: ?? New shortness of breath or chest pain ?? Shortness of breath or chest pain that gets worse ?? Swelling in both legs or ankles that gets worse ?? Swelling of the abdomen ?? Redness, warmth, or swelling in one leg ?? Fever of 100.4??F (38??C) or higher, or as directed by your health care provider ?? Yellow color to your skin or eyes ?? Rapid, unexplained weight gain ? [id number] [employer]. [address] [place] [address]. All rights reserved. This information is not intended as a substitute for professional medical care. Always follow your healthcare professional's instructions. UCT SAFETY TEST ENGINEER documented in this encounter Medications at Time of Discharge Medication Sig Dispensed Refills Start Date End Date acetaminophen (TYLENOL) Take 2 tablets (1,000 0 0 10/03/2015 500 MG mg) by mouth 3 times tabletIndications: daily For one week then Acute low back pain change to as needed. Do not take other tylenol/acetaminophen medications. ARIPiprazole (ABILIFY) Take 1 tablet (2 mg) by 30 tablet 0 06/26/2016 2 MG tablet mouth At Bedtime ASPIRIN NOT PRESCRIBED continuous prn for 0 (INTENTIONAL) other Antiplatelet medication not prescribed intentionally due to {CHOOSE REASON BEFORE SIGNING!!!:231077} DULoxetine HCl Take 120 mg by mouth 0 (CYMBALTA PO) every evening ibuprofen Take 1 tablet (600 mg) 120 tablet 0 10/03/2015 (ADVIL,MOTRIN) 600 MG by mouth every 8 hours tabletIndications: as needed for other Acute low back pain (mild pain) LEVOTHYROXINE SODIUM PO Take 88 mcg by mouth 0 daily order for Equipment being 1 Device 0 05/09/2016 DMEIndications: Left ordered: The following foot pain items were dispensed: Roll-a-bout for possible stress fracture/reaction of the left foot. order for Equipment being ordered: Cane (E0100) 1 Device 0 10/03/2015 DMEIndications: Acute Treatment Diagnosis: Acute back pain low back pain oxyCODONE (ROXICODONE) Take 1 tablet (5 mg) by 12 tablet 0 11/13/2015 5 MG immediate release mouth every 4 hours as tablet needed for pain Verapamil HCl (CALAN SR Take 120 mg by mouth 0 PO) every morning documented as of this encounter ED Notes Tresa Cassidy RN - 06/26/2016 11:55 PM CST A/O. VSS. PIV removed. Pt verbalized understanding of d/c instructions and ambulated to [facility]. 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 Pt refused to remove bra for EKG UCT SAFETY TEST ENGINEER Rebecca Thompson MD - 06/26/2016 9:23 PM CST History Chief Complaint: Leg Pain HPI Lizzie He is a 50 year old female who presents to the emergency department today for evaluation of bilateral leg pain and swelling. Patient notes that leg swelling started yesterday, with pain and warmth this morning. She also reports LLQ abdominal pain, and presents today with concern for DVT. Patient had been in boot for 1 month for treatment of stress fractures in right foot and recentlystarted Abilify. She no longer has gallbladder. Patient denies recent illness, fever, cough, shortness of breath, and chest pain. No other concerns were voiced at this time. PE/DVT Risk Factors: The patient denies a personal or family history of PE, DVT. The patient denies any recent travel, surgery, or other prolonged immobilization. The patient hormone use. Patient does report history of stroke and tobacco use. Medications:? Oxycodone Tylenol Ibuprofen Miralax Lyrica Chantix Calan Cymbalta Levothyroxine Abilify Past Medical History:? Migraine Herpes Zoster ?? Past Surgical History:? C section x2 Appendectomy Cholecystectomy Head and neck surgery Family History:? Father: Diabetes, HTN Mother: HTN, Thyroid Social History: Marital Status:?? [2] The patient is a former smoker (quit date: 09/15/2015). The patient is positive for alcohol use. Review of Systems Constitutional: Negative for fever. Respiratory: Negative for cough and shortness of breath. Cardiovascular: Positive for leg swelling. Negative for chest pain. Gastrointestinal: Positive for abdominal pain (LLQ). Musculoskeletal: Positive for myalgias (bilateral legs). All other systems reviewed and are negative. Physical Exam First Vitals: BP: 125/77 mmHg Pulse: 103 Temp: 98.3 ??F (36.8 ??C) Height: 172.7 cm (5' 8) Weight: 109.4 kg (241 lb 2.9 oz) SpO2: 97 % Physical Exam Constitutional: She is cooperative. HENT: Right Ear: Tympanic membrane normal. Left Ear: Tympanic membrane normal. Mouth/Throat: Oropharynx is clear and moist and mucous membranes are normal. Eyes: Conjunctivae are normal. Neck: Normal range of motion. Cardiovascular: Regular rhythm and normal heart sounds. Pulmonary/Chest: Effort normal and breath sounds normal. Abdominal: Soft. Normal appearance and bowel sounds are normal. There is no rebound and no guarding. Musculoskeletal: Normal range of motion. She exhibits edema. Moderate bilateral edema below knees Lymphadenopathy: She has no cervical adenopathy. Neurological: She is alert. Skin: Skin is warm and dry. Psychiatric: She has a normal mood and affect. Emergency Department Course Imaging: Radiology findings were communicated with the patient who voiced understanding of the findings. Chest xray 2 views: Mild infiltrate or atelectasis in the left lower lobe. A mild pneumonia could have this appearance. Please clinically correlate. The lungs are otherwise clear. No pleural effusions. Heart size and pulmonary vascularity are within normal limits. Postoperative changes of fusion in the lower cervical spine. Reading per radiology Lower extremities bilateral venous US: No evidence for deep venous thrombosis. Reading per radiology Laboratory: Laboratory findings were communicated with the patient who voiced understanding of the findings. CBC: WBC 11.1(H), HGB 12.0, PLT 269 CMP: Glucose: 140(H), BUN: 6(L), Creatinine 0.86 Troponin: <0.015 Emergency Department Course: Nursing notes and vitals reviewed. I performed an exam of the patient as documented above. IV was inserted and blood was drawn for laboratory testing, results above. The patient was sent for a imaging while in the emergency department, results above. At 2336 the patient was rechecked and updated on lab and imaging results. She confirms no cough, SOB, sputum production. In this clinical setting, not consistent with pneumonia. I discussed the treatment plan with the patient. They expressed understanding of this plan and consented to discharge. They will be discharged home with instructions for care and follow up. In addition, the patient will return to the emergency department if their symptoms persist, worsen, if new symptoms arise or if there is any concern. All questions were answered. I personally reviewed the laboratory results with the Patient and answered all related questions prior to discharge. Impression & Plan Medical Decision Making: Lizzie He is a 50 year old female who presents to the emergency department today complaining of bilateral swelling of the lower extremities. 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 Fortunately, US shows no evidence of this. I also considered systemic factors whichwould cause swelling such as renal insufficiency, cardiac problems, hepatic compromise. Fortunately lab tests are reassuring. Patient does acknowledge that she has been up a lot more, sleeping less, and this may be related to prolonged upright posture. Without evidence of emergency condition causing the swelling, I think that we can manage as an outpatient. I have discharge the patient with instructions to go home rather than work tonight, elevate the legs, contact her PCP in the morning, return if problems. Diagnosis: ICD-10-CM 1. Peripheral edema R60.9 Disposition: Discharge home; plan for follow up with Harriet Haley Disclosure: I, Jet Mahajan, am serving as a scribe at 9:29 PM on 06/26/2016 to document services personally performed by Rebecca Thompson MD, based on my observations and the provider's statements to me. 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 US LOWER EXTREMITY STAT 06/26/2016 10:48 Resul ts for this VENOUS DUPLEX PM PRODUCT SAFETY TEST ENGINEER procedure are in BILATERAL the results section. EKG 12-LEAD, TRACING STAT 06/26/2016 9:57 PM R esults for this ONLY PRODUCT SAFETY TEST ENGINEER procedure are i n the results section. CBC WITH PLATELETS & STAT 06/26/2016 9:40 PM R esults for this DIFFERENTIAL PRODUCT SAFETY TEST ENGINEER procedure are i n the results section. TROPONIN I STAT 06/26/2016 9:40 PM Results f or this PRODUCT SAFETY TEST ENGINEER procedure are i n the results section. COMPREHENSIVE STAT 06/26/2016 9:40 PM Results for this METABOLIC PANEL PRODUCT SAFETY TEST ENGINEER procedure ar e in the results section. documented in this encounter Results XR Chest 2 Views (06/26/2016 11:03 PM PRODUCT SAFETY TEST ENGINEER) Anatomical Region Laterality Modality Chest Computed Radiography Specimen (Source) Anatomical Location Collection Method / Collectio n Time Received Time / Laterality Volume Impressions 06/26/2016 11:12 PM PRODUCT SAFETY TEST ENGINEER IMPRESSION: Mild infiltrate or atelectasis in the left lower lobe. A mild pneumonia could have this appearanc e. Please clinically correlate. The lungs are otherwise clear . No pleural effusions. Heart size and pulmonary vascularity are withi n normal limits. Postoperative changes of fusion in the lower cervical spine. ITZ DUENAS MD Narrative 06/26/2016 11:12 PM PRODUCT SAFETY TEST ENGINEER CHEST TWO VIEWS ??06/26/2016 11:03 PM HISTORY: Chest pain. COMPARISON: None. Procedure Note Itz Duenas MD - 06/26/2016Forma tting of this note might be different from the original. CHEST TWO VIEWS 06/26/2016 11:03 PM HISTORY: Chest pain. COMPARISON: None. IMPRESSION: Mild infiltrate or atelectas is in the left lower lobe. A mild pneumonia could have this appearanc e. Please clinically correlate. The lungs are otherwise clear . No pleural effusions. Heart size and pulmonary vascularity are withi n normal limits. Postoperative changes of fusion in the lower cervical spine. ITZ DUENAS MD Rebecca Thompson MD IMG DIAGNOSTIC IMAGING ORDER NATALY Lower extremities, bilateral, venous US (06/26/2016 10:48 PM PRODUCT SAFETY TEST ENGINEER) Anatomical Region Laterality Modality Vascular, Thigh, Leg Ultrasound Specimen (Source) Anatomical Location Collection Method / Collectio n Time Received Time / Laterality Volume Impressions 06/26/2016 10:57 PM PRODUCT SAFETY TEST ENGINEER IMPRESSION: No evidence for deep venous thrombosis. MAXWELL PENA MD Narrative 06/26/2016 10:57 PM PRODUCT SAFETY TEST ENGINEER VENOUS DOPPLER BILATERAL LOWER EXTREMITY 06/26/2016 10:48 PM HISTORY: Bilateral leg swelling. COMPARISON: None. FINDINGS: Color-flow imaging and Doppler waveform spectral analysis were utilized. There is normal compressi bility and spontaneous flow throughout the right and left common fem oral, superficial femoral, popliteal and visualized calf veins. Procedure Note Maxwell Pena MD - 06/26/2016Fo rmatting of this note might be different from the original. VENOUS DOPPLER BILATERAL LOWER EXTREMITY 06/26/2016 10:48 PM HISTORY: Bilateral leg swelling. COMPARISON: None. FINDINGS: Color-flow imaging and Doppler waveform spectral analysis were utilized. There is normal compressi bility and spontaneous flow throughout the right and left common fem oral, superficial femoral, popliteal and visualized calf veins. IMPRESSION: No evidence for deep venous thrombosis. MAXWELL PENA MD Rebecca Thompson MD IMG US ORDERABLES EKG 12-lead, tracing only (06/26/2016 9:57 PM PRODUCT SAFETY TEST ENGINEER) [facility] Method Time Signature Interpretation ECG Click View RADIOLOGY Image link RESULTS to view waveform and result Specimen (Source) Anatomical Collection Method Collection Time Re ceived Time Location / / Volume Laterality 06/26/2016 9:57 PM PRODUCT SAFETY TEST ENGINEER Rebecca Thompson MD ECG ORDERABLES Performing Organization Address City/State/ZIP Code Phon e Number RADIOLOGY RESULTS (ABNORMAL) Comprehensive metabolic panel (06/26/2016 9:40 PM PRODUCT SAFETY TEST ENGINEER) athologist Signature Sodium 138 133 - 144 [place] mmol/L [facility] Potassium 3.6 3.4 - 5.3 [place] mmol/L [facility] Chloride 104 94 - 109 [place] mmol/L [facility] Carbon Dioxide 27 20 - 32 [place] mmol/L [facility] Anion Gap 7 3 - 14 [place] mmol/L [facility] Glucose 140 (H) 70 - 99 [place] mg/dL [facility] Urea Nitrogen 6 (L) 7 - 30 [place] mg/dL [facility] Creatinine 0.86 0.52 - [place] 1.04 mg/dL [facility] GFR Estimate 70 >60 [place] mL/min/1.7 [place] [address] H[facility]PITAL Comment: Non GFR Calc GFR Estimate If Black 85 >60 mL/min/1.7m2 F [facility] Comment: GFR Calc Calcium 8.5 8.5 - 10.1 mg/dL [facility] Bilirubin Total 0.3 0.2 - 1.3 mg/dL [facility] Albumin 3.6 3.4 - 5.0 g/dL [facility] Protein Total 7.2 6.8 - 8.8 g/dL [facility] Alkaline Phosphatase 134 40 - 150 U/L [facility] ALT 43 0 - 50 U/L [facility] AST 35 0 - 45 U/L [facility] Specimen Anatomical Collection Method Collection Time Receive d Time (Source) Location / / Volume Laterality Blood specimen 06/26/2016 9:40 PM 016 9:46 (specimen) PRODUCT SAFETY TEST ENGINEER PM PRODUCT SAFETY TEST ENGINEER Rebecca Thompson MD LAB - BLOOD ORDERABLES Performing Organization Address City/State/ZIP Code Phon e Number [facility] [address] [place] [address] HOSPITAL [facility] [address] [place], [place] [address] [phone] Troponin I (06/26/2016 9:40 PM PRODUCT SAFETY TEST ENGINEER) [facility] Method Time Signature Troponin I ES <0.015 0.000 - [place] The 99th percentile for uppe r reference range is 0.045 ug/L. ??Troponin values in 0.045 [facility] the range of 0.045 - 0.120 ug/L may be associated wit h risks of adverse ug/L HOSPITAL clinical events. Specimen Anatomical Collection Method Collection Time Receive d Time (Source) Location / / Volume Laterality Blood specimen 06/26/2016 9:40 PM 016 9:46 (specimen) PRODUCT SAFETY TEST ENGINEER PM PRODUCT SAFETY TEST ENGINEER Rebecca Thompson MD LAB - BLOOD ORDERABLES Performing Organization Address City/State/ZIP Code Phon e Number [place] [address] [address] [place], [place] [address] [place] [address] [phone] (ABNORMAL) CBC with platelets differential (06/26/2016 9:40 PM PRODUCT SAFETY TEST ENGINEER) Component Value Ref Test [facility] Method Time Signature WBC 11.1 (H) 4.0 - [place] 11.0 [facility] 10e9/L [facility] RBC Count 3.88 3.8 - [place] 5.2 [facility] 10e12/L [facility] Hemoglobin 12.0 11.7 - [place] 15.7 [facility] g/dL [facility] Hematocrit 36.3 35.0 - [place] 47.0 % [facility] MCV 94 78 - 100 [facility] MCH 30.9 26.5 - [place] 33.0 pg [facility] MCHC 33.1 31.5 - [place] 36.5 [facility] g/dL [facility] RDW 12.7 10.0 - [place] 15.0 % [facility] Platelet Count 269 150 - [place] 450 [facility] 10e9/L [facility] Diff Method Manual [place] Differential [facility] % Neutrophils 51.0 % [facility] % Lymphocytes 42.0 % [facility] % Monocytes 5.0 % [facility] % Eosinophils 1.0 % [facility] % Basophils 1.0 % [facility] Absolute 5.7 1.6 - [place] Neutrophil 8.3 [facility] 10e9/L [facility] Absolute 4.7 0.8 - [place] Lymphocytes 5.3 [facility] 10e9/L [facility] Absolute 0.6 0.0 - [place] Monocytes 1.3 [facility] 10e9/L [facility] Absolute 0.1 0.0 - [place] Eosinophils 0.7 [facility] 10e9/L [facility] Absolute 0.1 0.0 - [place] Basophils 0.2 [facility] 10e9/L [facility] RBC Morphology Consistent with [place] reported results [facility] Platelet Normal [place] Estimate [facility] Specimen Anatomical Collection Method Collection Time Receive d Time (Source) Location / / Volume Laterality Blood specimen 06/26/2016 9:40 PM 016 9:46 (specimen) PRODUCT SAFETY TEST ENGINEER PM PRODUCT SAFETY TEST ENGINEER Rebecca Thompson MD LAB - BLOOD ORDERABLES Performing Organization Address City/State/ZIP Code Phon e Number [place] [address] [address] [place], [place] [address] [phone] [facility] [address] [phone] documented in this encounter Visit Diagnoses Diagnosis Peripheral edema Edema documented in this encounter Active and Recently Administered Medications Care Teams Core Setter Relationship Specialty Start Date End Date Harriet Haley MD PCP - General Physician Shrink Pit Supervisor 10/01/[address] [address] documented as of this encounter
--- OUTSIDE RECORDS SUMMARY | 2022-06-21 19:21 | XMS_ITS | Encounter Summary ---
:1965 Author Organization [employer] Address [address] [place] [address] Care Team Providers Name Role Phone Unavailable Primary Care Provider Unavailable Encounter Details Date Type Department Care Team Description 04/09/2015 ER Follow Up Careline Penny Marino RN [address] [place], [place] [address] [place] [address] [phone] Social History Tobacco Use Types Packs/Day Years Used Date Smoking Tobacco: Never Assessed Sex Assigned at Date Recorded Not on file documented as of this encounter Progress Notes Penny Marino RN - 04/09/2015 5:16 PM CDT ER Follow up call: Contacted member RE: f/u of ER Visit dated 02/02/2015. Discussed current knowledgeof [facility] and of PCP/UC vs ER use. Reports chose the ER rather than PCP or UC because pain was so severe. Pt had her right ovary removed about 2 weeks after Er visit and states she is feeling well.Has PCP. Discussed importance of PCP for health maintenance and management. Is aware of Urgent Care location. Aware of CareLine. Discussed CareLine and gave contact information. Encouraged to call the CareLine with medical concerns when unable to get in touch with PCP. documented in this encounter Plan of Treatment Not on filedocumented as of this encounter Visit Diagnoses Not on filedocumented in this encounter
--- OUTSIDE RECORDS SUMMARY | 2022-06-21 19:21 | XMS_ITS | Encounter Summary ---
:1965 Author Organization [place] [facility] Address [facility] [place] [address] Care Team Providers Name Role Phone Harriet Haley MD Primary Care Provider [phone] Reason for Visit Reason Comments Urgent Care Pharyngitis Encounter Details Date Type Department Care Team Description 09/28/2016 Office Visit [facility] Briana Banuelos Throat p ain (Primary Dx); Urgent Care Shaan Peres MD Influenza-like illness [address] [facility] [address] [place] [id number] Social History Tobacco Use Types Packs/Day Years Used Date Smoking Tobacco: Former Cigarettes Quit : 09/15/2015 Smokeless Tobacco: Never Alcohol Use Standard Drinks/Week Comments Yes 0 (1 standard drink = 0.6 oz pure alcoho l) SMALL Sex Assigned at Date Recorded Not on file documented as of this encounter Last Filed Vital Signs Vital Sign Reading Time Taken Comments Blood Pressure 136/78 09/28/2016 2:53 PM ELECTRONIC EQUIPMENT REPAIRER Pulse 97 09/28/2016 2:53 PM ELECTRONIC EQUIPMENT REPAIRER Temperature 36.8 ??C (98.3 ??F) 09/28/2016 2:53 PM ELECTRONIC EQUIPMENT REPAIRER Respiratory Rate 16 09/28/2016 2:53 PM ELECTRONIC EQUIPMENT REPAIRER Oxygen Saturation 97% 09/28/2016 2:53 PM ELECTRONIC EQUIPMENT REPAIRER Inhaled Oxygen Concentration - - Weight 99.8 kg (220 lb) 09/28/2016 2:53 PM ELECTRONIC EQUIPMENT REPAIRER Height 172.7 cm (5' 8) 09/28/2016 2:53 PM ELECTRONIC EQUIPMENT REPAIRER Body Mass Index 33.45 09/28/2016 2:53 PM ELECTRONIC EQUIPMENT REPAIRER documented in this encounter Patient Instructions Patient InstructionsBriana Banuelos MD - 09/28/2016 3:15 PM CST Images from the original note were not included. Influenza Influenza (???the flu?? ) is an infection that affects your respiratory tract (the mouth, nose, and lungs, and the passages between them). Unlike a cold, the flu can make you very ill. And it can lead to pneumonia, a serious lung infection. For some people, especially older adults, young children, andpeople with certain chronic conditions, the flu can have serious complications and even be fatal. What Are the Risk Factors for the Flu? Viruses that cause influenza spread through the air in droplets when someone who has the flu coughs,sneezes, laughs, or talks. Anyone can get the flu. But you???re more likely to become infected if you: ?? Have a weakened immune system. ?? Work in a health care setting where you may be exposed to flu germs. ?? Live or work with someone who has the flu. ?? Haven???t received an annual flu shot. How Does the Flu Spread? The flu is caused by viruses. The viruses spread through the air in droplets when someone who has the flu coughs, sneezes, laughs, or talks. You can become infected when you inhale these??viruses directly. You can also become infected when you touch a surface on which the droplets have landed and thentransfer the germs to your eyes, nose, or mouth. Touching used tissues, or sharing utensils, drinking glasses, or a toothbrush with an infected person can expose you to flu viruses, too. What Are the Symptoms of the Flu? Flu symptoms tend to come on quickly and may last a few days to a few weeks. They include: ?? Fever usually higher than 101??F?? (38.3??C)??and chills ?? Sore throat and headache ?? Dry cough ?? Runny nose ?? Tiredness and weakness ?? Muscle aches Factors That Can Make Flu Worse For some people, the flu can be very serious. The risk of complications is greater for: ?? Children under age 5. ?? Adults??65 years of age and older. ?? People with a chronic illness, such as diabetes or heart, kidney, or lung disease. ?? People who live in a residential or long-term care facility. How Is the Flu Treated? Influenza usually improves after 7 days or so. In some cases, your??health care provider??may prescribe an antiviral medication. This may help you get well sooner. For the medication to help, you need to take it as soon as possible (ideally within 48 hours)??after your symptoms start. If you develop pneumonia or other serious illness, hospital care may be needed. Easing Flu Symptoms ?? Drink lots of fluids such as water, juice, and warm soup. A good rule is to drink enough so that you urinate your normal amount. ?? Get plenty of rest. ?? Ask your??health care provider??what to take??for fever and pain. ?? Call your??provider if your fever rises over 101??F (38.3??C) or you become dizzy, lightheaded, or short of breath. Taking??Steps to Protect Others ?? Wash your hands often, especially after coughing or sneezing. Or, clean your hands with an alcohol-based hand??shrimp cleaner containing at least 60 percent alcohol. ?? Cough or sneeze into a tissue. Then throw the tissue away and wash your hands. If you don???t have a tissue, cough and sneeze into the crook of your elbow. ?? Stay home until??at least 24 hours after you no longer have a fever or chills. Be sure the fever isn???t being hidden by fever-reducing medication. ?? Don???t share food, utensils, drinking glasses, or a toothbrush with others. ?? Ask your??health care provider if??others in your household should receive antiviral medication to help them avoid infection. How Can the Flu Be Prevented? ?? One of the best ways to avoid the flu is to get a flu vaccination each year. Viruses that cause the flu change from year to year. For that reason, doctors recommend getting the flu vaccine each year, as soon as it's available in your area. The vaccine may be given as a shot or as a??nasal spray. Your??health care provider??can tell you which vaccine is right for you. ?? Wash your hands often. Frequent handwashing is a proven way to help prevent infection. ?? Carry an alcohol-based hand gel containing at least 60 percent alcohol. Use it when you don???t have access to soap and water. Then wash your hands as soon as you can. ?? Avoid touching your eyes, nose, and mouth. ?? At home and work, clean phones, computer keyboards, and toys often with disinfectant wipes. ?? If possible, avoid close contact with others who have the flu or symptoms of the flu. Handwashing Tips Handwashing is one of the best ways to prevent many common infections. If you???re caring for or visiting someone with the flu, wash your hands each time you enter and leave the room. Follow these steps: ?? Use warm water and plenty of soap. Rub your hands together well. ?? Clean the whole hand, under your nails, between your fingers, and up the wrists. ?? Wash for at least 15??seconds. ?? Rinse, letting the water run down your fingers, not up your wrists. ?? Dry your hands well. Use a paper towel to turn off the faucet and open the door. Using Alcohol-Based Hand Eyeglass Fitter Alcohol-based hand??support services tech are also a good choice. Use them when you don???t have access to soap and water. Follow these steps: ?? Squeeze about a tablespoon of gel into the palm of one hand. ?? Rub your hands together briskly, cleaning the backs of your hands, the palms, between your fingers, and up the wrists. ?? Rub until the gel is gone and your hands are completely dry. Preventing Influenza in Healthcare Settings The flu is a special concern for people in hospitals and long-term care facilities. To help prevent the spread of flu, many hospitals and nursing homes take these steps: ?? Health care providers wash their hands or use an alcohol-based hand shrimp cleaner before and after treating each patient. ?? People with the flu have private rooms and bathrooms or share a room with someone with the same infection. ?? High-risk patients who don???t have the flu are encouraged to get the??flu and pneumonia vaccines. ?? All health care workers are encouraged or required to??get flu shots. ? [phone] [employer]. [address] [place] [address]. All rights reserved. This information is not intended as a substitute for professional medical care. Always follow your healthcare professional's instructions. TRONIC EQUIPMENT REPAIRER documented in this encounter Progress Notes Briana Banuelos MD - 09/28/2016 2:45 PM CST SUBJECTIVE: Chief Complaint Patient presents with ??? Urgent Care ??? Pharyngitis Lizzie He is a 50 year old female who present complaining of flu-like symptoms: fevers, chills, myalgias, headache, congestion, sore throat and cough for 2 days. Denies dyspnea / wheezing. Has no known exposure to people with influenza Past Medical History Diagnosis Date ??? Anxiety ??? Cerebral infarction (H) ??? Depressive disorder ??? Herpes zoster without mention of complication ??? Migraine, unspecified, without mention of intractable migraine without mention of status migrainosus ??? Thyroid disease ALLERGIES: No known allergies; Sulfamethoxazole w/trimethoprim; Augmentin; Cefuroxime; and Nitrofurantoin Current Outpatient Prescriptions Medication ??? traMADol (ULTRAM) 50 MG tablet ??? HYDROcodone-acetaminophen (NORCO) 5-325 MG per tablet ??? order for DME ??? ARIPiprazole [...] drinks or equivalent per week Comment: SMALL Family History Problem Relation Age of Onset ??? DIABETES Father HYPERTENSION ALSO ??? Hypertension Mother THYROID ALSO ROS: INTEGUMENTARY/SKIN: NEGATIVE for worrisome rashes, moles or lesions EYES: NEGATIVE for vision changes or irritation GI: NEGATIVE for nausea, abdominal pain, heartburn, or change in bowel habits OBJECTIVE: BP 136/78 (BP Location: Right arm, Cuff Size: Adult Large) Pulse 97 Temp 98.3 ??F (36.8 ??C) (Oral) Resp 16 Ht 5' 8 (1.727 m) Wt 220 lb (99.8 kg) SpO2 97% BMI 33.45 kg/m2 Appears fatigued, moderately ill but not toxic; Ears normal. Throat and pharynx normal. Neck supple.No adenopathy in the neck. Sinuses non tender. The chest has a few scattered ronchi. Results for orders placed or performed in visit on 09/28/16 Strep, Rapid Screen Result Value Ref Range Specimen Description Throat Rapid Strep A Screen NEGATIVE: No Group A streptococcal antigen detected by immunoassay, await culture report. Micro Report Status FINAL 09/28/2016 ASSESSMENT: Throat pain - Strep, Rapid Screen - Beta strep group A culture Influenza-like illness We discussed the limitations of antiviral therapy against influenza, that treatment should usually be initiated within 2 days of the start of symptoms and is most critical for persons with weak immunity and chronic respiratory illnesses Symptomatic therapy suggested: Rest, drink lots of fluids, Acetaminophen / ibuprofen for body aches and fever, Salt water gargles for sore throat, OTC anesthetic lozenges for sore throat, OTC cough medications. Call or return to clinic prn if these symptoms worsen or fail to improve as anticipated. Treatment and prophylaxis for close contacts was discussed Advised that influenza illness usually lasts a week, sometimes more and that the patient should avoid contact with others, and cover the mouth when coughing to limit spread of the infection. Discussed that influenza is a potent virus that can cause damage to airways making increased risk for developing bronchitis or pneumonia. In severe cases of chest symptoms and antibiotic can treat the bacterial superinfection, but I explained that the antibiotic is not effective against the influenza virus. note for work TRONIC EQUIPMENT REPAIRER documented in this encounter Nursing Notes Jennifer Mohan MA - 09/28/2016 2:45 PM CST Chief Complaint Patient presents with ??? Urgent Care ??? Pharyngitis Initial BP 136/78 (BP Location: Right arm, Cuff Size: Adult Large) Pulse 97 Temp 98.3 ??F (36.8 ??C)(Oral) Resp 16 Ht 5' 8 (1.727 m) Wt 220 lb (99.8 kg) SpO2 97% BMI 33.45 kg/m2 Estimated body mass index is 33.45 kg/(m^2) as calculated from the following: Height as of this encounter: 5' 8 (1.727 m). Weight as of this encounter: 220 lb (99.8 kg). Medication Reconciliation: complete Jennifer Mohan MACHINE BURRER TRONIC EQUIPMENT REPAIRER documented in this encounter Plan of Treatment Not on filedocumented as of this encounter Procedures Procedure Name Priority Date/Time Associated Diagnosis Comme nts RAPID STREP SCREEN Routine 09/28/2016 2:58 PM Throat pain Res ults for this THROAT SWAB ELECTRONIC EQUIPMENT REPAIRER procedure are i n the results section. BETA HEMOLYTIC Routine 09/28/2016 2:58 PM Throat pain Results for this STREP GROUP A ELECTRONIC EQUIPMENT REPAIRER procedure are in CULTURE the results section. documented in this encounter Results Beta strep group A culture (09/28/2016 2:58 PM ELECTRONIC EQUIPMENT REPAIRER) Component Value Ref Test Analysis Performed At [facility] Range Method Time Signature Specimen Throat ANNA Description [facility] Culture Micro No Beta ANNA Streptococcus [facility] isolated [place] Micro Report FINAL 09/30/[address] [facility] Specimen Anatomical Collection Method Collection Time Receive d Time (Source) Location / / Volume Laterality Specimen from 09/28/2016 2:58 PM 09/28/19 17 2:59 throat ELECTRONIC EQUIPMENT REPAIRER PM ELECTRONIC EQUIPMENT REPAIRER (specimen) Briana Banuelos MD LAB - MICRO GENERAL ORDERABL ES Performing Organization Address City/State/ZIP Code Phon e Number [facility] [address] [place] [address] Strep, Rapid Screen (09/28/2016 2:58 PM ELECTRONIC EQUIPMENT REPAIRER) Component Value Ref Test Analysis Performed At [facility] gist Range Method Time Signature Specimen Throat ANNA Description [facility] Rapid Strep A NEGATIVE: No Group A strepto coccal antigen detected by immunoassay, await ANNA Screen culture report. [facility] Micro Report FINAL 09/28/[address] [facility] Specimen Anatomical Collection Method Collection Time Receive d Time (Source) Location / / Volume Laterality Specimen from 09/28/2016 2:58 PM 09/28/19 17 2:59 throat ELECTRONIC EQUIPMENT REPAIRER PM ELECTRONIC EQUIPMENT REPAIRER (specimen) Briana Banuelos MD LAB - MICRO GENERAL ORDERABL ES Performing Organization Address City/State/ZIP Code Phon e Number [facility] [id number] [place] [address] documented in this encounter Visit Diagnoses Diagnosis Throat pain - Primary Influenza-like illness Influenza with other respiratory manifes tations documented in this encounter Care Teams Welfare Adviser Relationship Specialty Start Date End Date Harriet Haley MD PCP - General Physician Interlocking And Signal Mechanic 10/01/15 [facility] [address] [place] [address] documented as of this encounter
--- OUTSIDE RECORDS SUMMARY | 2022-06-21 19:21 | XMS_ITS | Encounter Summary ---
:1965 Author Organization [place] Address [facility] [place] [address] Care Team Providers Name Role Phone Harriet Haley MD Primary Care Provider [phone] Encounter Details Date Type Department Care Team Description 07/06/[address] [facility] Karlie Gates [place] toe [place] [id number] [address] [facility] [phone] [place] [address] Social History Tobacco Use Types Packs/Day Years [...] Date/Time Associated Diagnosis Comme nts XR FOOT LEFT G/E 3 Routine 07/06/2016 10:55 AM Pain of toe of left Results for this VIEWS [facility] foot procedure are i n the results section. documented in this encounter Results XR Foot Left G/E 3 Views (07/06/2016 10:55 AM [facility]) Anatomical Region Laterality Modality Foot, Ankle Left Computed Radiography Specimen (Source) Anatomical Location Collection Method / Collectio n Time Received Time / Laterality Volume Impressions 07/06/2016 12:08 PM [facility] IMPRESSION: Bones are normally aligned. Moderate inferior calcaneal heel spur. No acute fracture. KANA ORNELAS MD Narrative 07/06/2016 12:08 PM [facility] LEFT FOOT THREE OR MORE VIEWS ??07/06/2016 10:55 AM HISTORY: Pain in left toe(s). COMPARISON: May 08, 2016. Procedure Note Kana Ornelas MD - 07/06/2016 LEFT FOOT THREE OR MORE VIEWS 07/06/2016 10:55 AM HISTORY: Pain in left toe(s). COMPARISON: May 08, 2016. IMPRESSION: Bones are normally aligned. Moderate inferior calcaneal heel spur. No acute fracture. KANA ORNELAS MD Liu Gates MD IMG DIAGNOSTIC IMAGING ORDER NATALY documented in this encounter Visit Diagnoses Diagnosis Pain of toe of left foot Pain in limb documented in this encounter Care Teams Ornamental Ironworking Supervisor Relationship Specialty Start Date End Date Harriet Haley MD PCP - General Physician Partner Management Consultant 10/01/15 [facility] [address] [place] [address] documented as of this encounter
--- OUTSIDE RECORDS SUMMARY | 2022-06-21 19:21 | XMS_ITS | Encounter Summary ---
:1965 Author Organization [facility] Address [address] [place] [address] Care Team Providers Name Role Phone Unavailable Primary Care Provider Unavailable Encounter Details Date Type Department Care Team Description 05/01/2003 PN Conversion Only PMO MANAGER [address] [place] [address] Social History Tobacco Use Types Packs/Day Years Used Date Smoking Tobacco: Never Assessed Sex Assigned at Date Recorded Not on file documented as of this encounter Plan of Treatment Not on filedocumented as of this encounter Visit Diagnoses Not on filedocumented in this encounter
--- OUTSIDE RECORDS SUMMARY | 2022-06-21 19:21 | XMS_ITS | Encounter Summary ---
:1965 Author Organization [place] Address [address] [facility] [place] [address] Care Team Providers Name Role Phone Harriet Haley MD Primary Care Provider [phone] Reason for Visit Reason Comments Urgent Care Pt c/o urinary pain and frqu ency started this afternoon. Encounter Details Date Type Department Care Team Description 11/13/[address] [facility] Kirsten Batista NP Dysuria (Primary Dx); Urgent Care [facility] [address] [place] [address] Nonspecific finding on examination of ur ine; [address] [place], [place] Urinary tract infection with [place]uria, [place] [id number] Social History Tobacco Use Types Packs/Day Years Used Date Smoking Tobacco: Former Cigarettes Quit : 09/15/2015 Smokeless Tobacco: Never Alcohol Use Standard Drinks/Week Comments Yes 0 (1 standard drink = 0.6 oz pure alcoho l) SMALL Sex Assigned at Date Recorded Not on file documented as of this encounter Last Filed Vital Signs Vital Sign Reading Time Taken Comments Blood Pressure 98/78 11/13/2017 8:35 PM CDT Pulse 96 11/13/2017 8:35 PM CDT Temperature 36.9 ??C (98.5 ??F) 11/13/2017 8:35 PM CDT Respiratory Rate 16 11/13/2017 8:35 PM CDT Oxygen Saturation 95% 11/13/2017 8:35 PM CDT Inhaled Oxygen Concentration - - Weight - - Height - - Body Mass Index - - documented in this encounter Progress Notes Kirsten Batista NP - 11/13/2017 7:40 PM CDT HPI Pt c/o dysuria and increased urinary frequency that started today. No fever, abd pain, n/v/d. No flank or back pain. No hematuria. Denies vaginal bleeding or discharge. ROS 10 point ROS assessed, documented in HPI otherwise negative. Physical Exam Constitutional: She is oriented to person, place, and time and well-developed, well-nourished, and in no distress. No distress. HENT: Head: Normocephalic. Eyes: Conjunctivae are normal. Cardiovascular: Normal rate and regular rhythm. Pulmonary/Chest: Effort normal and breath sounds normal. No respiratory distress. She has no wheezes. She has no rales. Abdominal: Soft. Bowel sounds are normal. She exhibits no distension. There is no tenderness. There is no rebound and no CVA tenderness. Neurological: She is alert and oriented to person, place, and time. Skin: Skin is warm and dry. She is not diaphoretic. BP 98/78 Pulse 96 Temp 98.5 ??F (36.9 ??C) (Oral) Resp 16 SpO2 95% MDM: This does not sound like a stone or infected stone. I doubt pyelo as she has no fever, no CVAT and she looks well. UA consistent with infection. After reviewing allergies, rx for Cipro given. Urine culture sent and pending. Push fluids. We discussed specific s/s that warrant urgent re-evaluation. PT verbalizes understanding. Dx: UTI Kirsten Hugo. SACHA Batista documented in this encounter Nursing Notes Sorin Cabrera MA - 11/13/2017 7:40 PM CDT Chief Complaint Patient presents with ??? Urgent Care Pt c/o urinary pain and frquency started this afternoon. Initial BP 98/78 Pulse 96 Temp 98.5 ??F (36.9 ??C) (Oral) Resp 16 SpO2 95% Estimated body mass index is 33.45 kg/(m^2) as calculated from the following: Height as of 09/28/16: 5' 8 (1.727 m). Weight as of 09/23/17: 220 lb (99.8 kg). Medication Reconciliation: unable or not appropriate to perform Sorin Cabrera CMA documented in this encounter Plan of Treatment Not on filedocumented as of this encounter Procedures Procedure Name Priority Date/Time Associated Diagnosis Comme nts URINE CULTURE Routine 11/13/2017 8:16 PM Dysuria Results for this CDT Nonspecific finding procedur e are in on examination of the result s urine section. URINE MICROSCOPIC Routine 11/13/2017 7:48 PM Dysuria Resu lts for this CDT procedure are i n the results section. documented in this encounter Results Urine Culture Aerobic Bacterial (11/13/2017 8:16 PM CDT) [facility] gist Method Time Signature Specimen Midstream INFECTIOUS Description Urine DISEASE DIAGNOSTIC LABORATORY Culture Micro >100,000 colonies/mL 11/14/2017 INFE CTIOUS mixed urogenital tracy 10:38 PM DISEASE CDT DIAGNOSTIC LABORATORY Specimen (Source) Anatomical Collection Method Collection Time Re ceived Time Location / / Volume Laterality Examination of 11/13/2017 8:16 11/13/2017 8:17 midstream urine PM CDT PM CDT specimen (procedure) Kirsten Batista NP LAB - MICRO GENERAL ORDERABL ES Performing Organization Address City/State/ZIP Code Phon e Number INFECTIOUS DISEASES [address] [place] [address] DIAGNOSTIC LABORATORY, [facility] INFECTIOUS DISEASE [address] [place] [address], [facility] DIAGNOSTIC LABORATORY (ABNORMAL) Urine Microscopic (11/13/2017 7:48 PM CDT) athologist Signature WBC Urine 10-25 (A) OTO5^0 - 5 11/13/2017 [facility] /HPF 8:13 PM CDT [facility] Comment: Interfering substances, dipstic k not done RBC Urine O - 2 OTO2^O - 2 11/13/2017 8:13 PM [facility] /HPF CDT [place] Squamous Epithelial Few FEW^Few /LPF 11/13/2017 8:13 P M [facility] /LPF Urine CDT REPUBLIC Bacteria Urine Moderate (A) NEG^Negative 11/13/2017 8:13 PM [facility] /HPF CDT REPUBLIC Specimen Anatomical Collection Method Collection Time Receive d Time (Source) Location / / Volume Laterality 11/13/2017 7:48 PM 8 7:49 CDT PM CDT Kirsten Batista TOOLROOM KEEPER LAB - URINE ORDERABLES Performing Organization Address City/State/ZIP Code Phon e Number [facility] [id number] [place] [address] documented in this encounter Visit Diagnoses Diagnosis Dysuria - Primary Nonspecific finding on examination of ur ine Other nonspecific finding on examination of urine Urinary tract infection without hematuri a, site unspecified documented in this encounter Care Teams Control Director Relationship Specialty Start Date End Date Harriet Haley MD PCP - General Physician Aeronautical Engineer 10/01/15 [facility] [address] [place] [address] documented as of this encounter
--- OUTSIDE RECORDS SUMMARY | 2022-06-21 19:21 | XMS_ITS | Encounter Summary ---
:1965 Author Organization [facility] Address [address] [place] [address] Care Team Providers Name Role Phone Unavailable Primary Care Provider Unavailable Encounter Details Date Type Department Care Team Description 06/26/2021 delfina Nickerson [phone] Social History Tobacco Use Types Packs/Day Years Used Date Smoking Tobacco: Never Assessed Sex Assigned at Date Recorded Not on file documented as of this encounter Progress Notes FAMILY MEDICINEDELFINA PROVIDER - 06/26/2021 11:36 PM CST delfina Treatment Plan Diagnosis Urinary Tract Infection Visit Date June 27, 2021 Lizzie He Date of : 65 Provider Penny Rios, Nurse Practitioner Note From Provider Santosh Samuel. I am so sorry to hear you are having these symptoms. I've sent in a prescription for the antibiotic for your bladder infection (UTI) to [facility] in [place] as you requested. The antibiotic that I prescribed for you is a powder to be dissolved in water. It is one dose only and that is the complete treatment. Please drink lots of fluids and take the antibiotic as soon as it is available to you. Please Request a Call Back for any questions or concerns. Feel better soon! Penny Rios, SACHA Treatment Plan Since you have a bacterial infection, let's try an antibiotic. [facility] . I've also listed a few of the best ways to soothe your discomfortand some additional self-care tips to get you on the road to feeling better.If your symptoms don't improve after 3 days, or if you havequestions, please select Help to Request a Call Back andwe'll talk about your next steps for free. Order(s) Monurol 3 gram packet Take 1 packet dissolved in water single dose for 1 day Note: Refills: None Sent To: [facility] [address] [place], [place] [id number] Treatment Plan Self Care Tip Topics Warm Packs Pain Relief with AZO Avoid Caffeine Drink Water What to Expect If you follow the recommendations I made on the Treatment tab, your symptomsshould improve in about 3 days. If your symptoms don'timprove after 3 days, or if you have questions, please select Help toRequest a Call Back and we'll helpdetermine your next step for free. What to Watch Out For Give us a call if you experience: ??? High fever ??? Shaking chills ??? Worsening pain with urination ??? Severe pain in your back, abdomen or pelvis My Conditions, Orders, Allergies as of June 27, 2021 Standard condition list Anxiety High Blood Pressure (Hypertension) High Cholesterol (Hyperlipidemia) Underactive Thyroid (Hypothyroid) Fibromyalgia Depression Current orders Monurol (fosfomycin tromethamine) Levoxyl (levothyroxine) Crestor (rosuvastatin) buspirone (buspirone) verapamil (verapamil) levothyroxine (levothyroxine) Cymbalta (duloxetine) Allergies Macrobid (nitrofurantoin monohyd/m-cryst), oral Ceftin (cefuroxime axetil), oral Bactrim (sulfamethoxazole-trimethoprim), oral Augmentin (amoxicillin-pot clavulanate), oral [facility] We are an online clinic open 02/03. If you have any questions or comments about this visit, please call or email [email or web address] documented in this encounter Plan of Treatment Not on filedocumented as of this encounter Visit Diagnoses Not on filedocumented in this encounter
--- OUTSIDE RECORDS SUMMARY | 2022-06-21 19:21 | XMS_ITS | Encounter Summary ---
:1965 Author Organization [facility] Address [address] [facility] [place] [address] Care Team Providers Name Role Phone Harriet Haley MD Primary Care Provider [phone] Reason for Visit Reason Comments Urgent Care Musculoskeletal Problem Left foot pain Encounter Details Date Type Department Care Team Description 07/06/2016 Office Visit [facility] [place], Pain o f toe of left Urgent Care Shaan kelly MD foot (Primary Dx) [address] [address] [facility] [place] [address] [id number] Social History Tobacco Use Types Packs/Day Years Used Date Smoking Tobacco: Former Cigarettes Quit : 09/15/2015 Smokeless Tobacco: Never Alcohol Use Standard Drinks/Week Comments Yes 0 (1 standard drink = 0.6 oz pure alcoho l) SMALL Sex Assigned at Date Recorded Not on file documented as of this encounter Last Filed Vital Signs Vital Sign Reading Time Taken Comments Blood Pressure 138/74 07/06/2016 10:35 AM YOUTH MINISTER Pulse 84 07/06/2016 10:35 AM YOUTH MINISTER Temperature 36.9 ??C (98.4 ??F) 07/06/2016 10:35 AM YOUTH MINISTER Respiratory Rate 18 07/06/2016 10:35 AM YOUTH MINISTER Oxygen Saturation 98% 07/06/2016 10:35 AM YOUTH MINISTER Inhaled Oxygen Concentration - - Weight 109.3 kg (241 lb) 07/06/2016 10:35 AM YOUTH MINISTER Height 172.7 cm (5' 8) 07/06/2016 10:35 AM YOUTH MINISTER Body Mass Index 36.64 07/06/2016 10:35 AM YOUTH MINISTER documented in this encounter Progress Notes Liu Gates MD - 08/05/2016 9:54 AM CST SUBJECTIVE: Lizzie He is a 50 year old female who sustained a left toe injury several hours ago. Mechanism of injury: jamming injury. Immediate symptoms: immediate pain, immediate swelling. Symptoms havebeen sudden since that time. Prior history of related problems: no prior problems with this area in the past. OBJECTIVE: Vital signs as noted above. Appearance: in no apparent distress. Foot exam: soft tissue swelling and tenderness at the tret toe. thereis decreased rom. X-ray: soft tissue swelling. ASSESSMENT: Toe strain and sprain PLAN: NSAID, ice suggested See orders in EpicCare. H MINISTER documented in this encounter Nursing Notes Jennifer Mohan MA - 07/06/2016 10:36 AM CST Chief Complaint Patient presents with ??? Urgent Care ??? Musculoskeletal Problem Initial BP 138/74 mmHg Pulse 84 Temp(Src) 98.4 ??F (36.9 ??C) (Oral) Resp 18 Ht 5' 8 (1.727m) Wt 241 lb (109.317 kg) BMI 36.65 kg/m2 SpO2 98% Estimated body mass index is 36.65 kg/(m^2)as calculated from the following: Height as of this encounter: 5' 8 (1.727 m). Weight as of this encounter: 241 lb (109.317 kg). BP completed using cuff size: chrissy Mohan CMA H MINISTER documented in this encounter Plan of Treatment Not on filedocumented as of this encounter Results XR Foot Left G/E 3 Views (07/06/2016 10:55 AM YOUTH MINISTER) Anatomical Region Laterality Modality Foot, Ankle Left Computed Radiography Specimen (Source) Anatomical Location Collection Method / Collectio n Time Received Time / Laterality Volume Impressions 07/06/2016 12:08 PM YOUTH MINISTER IMPRESSION: Bones are normally aligned. Moderate inferior calcaneal heel spur. No acute fracture. KANA ORNELAS MD Narrative 07/06/2016 12:08 PM YOUTH MINISTER LEFT FOOT THREE OR MORE VIEWS ??07/06/2016 [...] Diagnosis Pain of toe of left foot - Primary Pain in limb Pain of toe of left foot Pain in limb documented in this encounter Care Teams Neighborhood Conservation Officer Relationship Specialty Start Date End Date Harriet Haley MD PCP - General Physician Broadcast Journalist 10/01/15 [facility] [address] [place] [address] documented as of this encounter
--- OUTSIDE RECORDS SUMMARY | 2022-06-21 19:21 | XMS_ITS | Clinical Summary ---
:1965 Author Organization [facility] Address [address] [place] [address] Care Team Providers Name Role Phone Harriet Haley MD Primary Care Provider [phone] Allergies Active Allergy Reactions Severity Noted Date Comments Augmentin Rash Low 05/08/2016 Cefuroxime Rash Low 05/08/2016 Nitrofurantoin Rash Low 05/08/2016 Pruritic rash No Known Allergies 09/21/2002 Sulfamethoxazole W/Trimethoprim Nausea 6 Stomach pain and nausea Medications Medication Sig Dispensed Refills Start Date End Date Status DULoxetine HCl Take 120 mg by 0 Active (CYMBALTA PO) mouth every evening LEVOTHYROXINE SODIUM PO Take 88 mcg by 0 Active mouth daily Verapamil HCl (CALAN SR Take 120 mg by 0 Active PO) mouth every morning acetaminophen (TYLENOL) Take 2 tablets 0 10/03/2015 Active 500 MG (1,000 mg) by tabletIndications: mouth 3 times Acute low back pain daily For one week then change to as needed. Do not take other tylenol/acetamino phen medications. Additional Information Patient not taking. Reported on 11/13/2017 ibuprofen (ADVIL,MOTRIN) 600 Take 1 tablet (600 mg) 120 tablet 0 10/03/2015 Active MG tabletIndications: Acute by mouth every 8 hours low back pain as needed for other (mild pain) order for DMEIndications: Equipment being ordered: Cane (E0100) 1 D evice 0 10/03/2015 Active Acute low back pain Treatment Diagnosis: Acute back pain oxyCODONE (ROXICODONE) 5 MG Take 1 tablet (5 mg) by 12 tablet 0 11/13/2015 Active immediate release tablet mouth every 4 hours as needed for pain order for DMEIndications: Equipment being 1 Device 0 05/09/20 16 Active Left foot pain ordered: The following items were dispensed: Roll-a-bout for possible stress fracture/reaction of the left foot. ARIPiprazole (ABILIFY) 2 MG Take 1 tablet (2 mg) by 30 tablet 0 06/26/2016 Active tablet mouth At Bedtime ASPIRIN NOT PRESCRIBED continuous prn for 0 Active (INTENTIONAL) other Antiplatelet medication not prescribed intentionally due to {CHOOSE REASON BEFORE SIGNING!!!:151168} order for DMEIndications: Equipment being 1 Units 0 07/06/20 16 Active Pain of toe of left foot ordered: crutches traMADol (ULTRAM) 50 MG Take 1 tablet (50 mg) 10 tablet 0 08/2015 Active tabletIndications: Stress by mouth nightly as fracture of right foot with needed for moderate routine healing, subsequent pain encounter predniSONE (DELTASONE) 20 MG Take 1 tablet (20 mg) 5 tablet 0 04/26/2017 Active tabletIndications: Throat by mouth daily pain Additional Information Patient not taking. Reported on 11/13/2017 ciprofloxacin (CIPRO) 250 MG Take 1 tablet (250 6 tablet 0 Active tabletIndications: Urinary tract mg) by mouth 2 times infection without hematuria, site daily unspecified Active Problems Patient Care Coordination Note Formatting of this note might be differe nt from the original. [email or web address] Problem Noted Date Chronic bilateral low back pain with left-sided sciati ca 03/26/2016 Low back pain potentially associated with radiculopath y 10/01/2015 Acute low back pain 10/01/2015 Immunizations Name Administration Dates Next Due Mantoux Tuberculin Skin Test 04/18/2002 Family History Medical History Relation Comments Diabetes Father HYPERTENSION ALSO Hypertension Mother THYROID ALSO Relation Status Comments Father Mother Social History Tobacco Use Types Packs/Day Years Used Date Smoking Tobacco: Former Cigarettes Quit : 09/15/2015 Smokeless Tobacco: Never Alcohol Use Standard Drinks/Week Comments Yes 0 (1 standard drink = 0.6 oz pure alcoho l) SMALL Sex Assigned at Date Recorded Not on file Last Filed Vital Signs Vital Sign Reading Time Taken Comments Blood Pressure 98/78 11/13/2017 8:35 PM CDT Pulse 96 11/13/2017 8:35 PM CDT Temperature 36.9 ??C (98.5 ??F) 11/13/2017 8:35 PM CDT Respiratory Rate 16 11/13/2017 8:35 PM CDT Oxygen Saturation 95% 11/13/2017 8:35 PM CDT Inhaled Oxygen Concentration - - Weight 99.8 kg (220 lb) 09/23/2017 6:47 PM BRAKE LINING MAKER Height 172.7 cm (5' 8) 09/28/2016 2:53 PM BRAKE LINING MAKER Body Mass Index 33.45 09/28/2016 2:53 PM BRAKE LINING MAKER Plan of Treatment Health Maintenance Due Date Last Done Comments ADVANCE CARE PLANNING 1965 ANNUAL REVIEW OF HM ORDERS 1965 CT COLONOGRAPHY 1965 FIT-DNA (Cologuard) 1965 FIT 1965 FLEX SIG 1965 HEPATITIS B IMMUNIZATION (1 1965 of 3 - 3-dose series) MAMMO SCREENING 1965 URINE DRUG SCREEN 1965 YEARLY PREVENTIVE VISIT 1965 COVID-19 Vaccine (#1) 04/27/1966 COLONOSCOPY 10/26/1975 COLORECTAL CANCER SCREENING 10/26/1975 HIV SCREENING 1980 HEPATITIS C SCREENING 10/26/1983 PAP 1986 DTAP/TDAP/TD IMMUNIZATION 1990 (1 - Tdap) LIPID 2010 LUNG CANCER SCREENING 10/26/2015 ZOSTER IMMUNIZATION (1 of 10/26/2015 2) PHQ-2 (once per calendar 08/10/2021 10/10/2015 year) INFLUENZA VACCINE (#1) 2022 04/27/2017, 07/09/2016, 07/06/2016, Additional history exists Pneumococcal Vaccine: Aged Out 07/20/2013, 07/20/2013, No longer eligible Pediatrics (0 to 5 Years) 01/01/2011 based on patient's age and At-Risk Patients (6 to to co mplete this topic 64 Years) IPV IMMUNIZATION Aged Out No longer eligi ble based on patient 's age to complete this topic MENINGITIS IMMUNIZATION Aged Out No longe r eligible based on patient 's age to complete this topic Medical Devices Implanted Type Area Ice House Supervisor Device Shelf Model / Identifier Expiration Serial / Lot Date Sling Sparc Urinary System [id number] Stent N/A: ASTORA 06/15/2018 [id number] / Implanted: Qty: 1 on 11/05/2015 Bladder / [id number] Kit Sling Lynx - [id number] Stent N/A: BOSTON 0 11/25/2018 [id number] / Implanted: Qty: 1 on 02/20/2016 Bladder [employer] / [id number] C4-C5 Fusion Explanted Type Area Ice House Supervisor Device Identifier Shelf Exp iration Model / Date Serial / L ot Sparc Sling Explanted: 11/05/2015 (Quantity not on file) Insurance Payer Benefit Plan / Subscriber ID Effective Phone Address [employer] [place] [id number] 2013-Pres [phone] [address] O OPEN ACCESS ent [address] [place] [address] Advance Directives For more information, please contact: [phone] Latest Code Status on File Code Status Date Activated Date Inactivated Comments Full Code 10/03/2015 3:40 PM Code Status History Code Status Date Activated Date Inactivated Comments Full Code 10/01/2015 6:21 PM 10/03/2015 3:40 PM Care Teams Package Line Relief Operator Relationship Specialty Start Date End Date Harriet Haley MD PCP - General Physician Peer Financial Counselor 10/01/15 [facility] [address] [place] [address]
--- OUTSIDE RECORDS SUMMARY | 2022-06-21 19:21 | XMS_ITS | Encounter Summary ---
:1965 [facility] Address [address] [place] [address] Care Team Providers Name Role Phone Unavailable Primary Care Provider Unavailable Reason for Visit Reason Comments Cough Encounter Details Date Type Department Care Team Description 11/12/2021 Office Visit [place] [address] Urgent Gurdeep Tyler PA-C Cough; Care [address] [place]; [address] [place] [address] [place] [address] [phone] Social History Tobacco Use Types Packs/Day Years Used Date Smoking Tobacco: Never Smokeless Tobacco: Never Sex Assigned at Date Recorded Not on file documented as of this encounter Last Filed Vital Signs Vital Sign Reading Time Taken Comments Blood Pressure 137/86 11/12/2021 12:04 PM CDT Pulse 96 11/12/2021 12:04 PM CDT Temperature 36.7 ??C (98.1 ??F) 11/12/2021 12:04 PM CDT Respiratory Rate 18 11/12/2021 12:04 PM CDT Oxygen Saturation 98% 11/12/2021 12:04 PM CDT Inhaled Oxygen Concentration - - Weight - - Height - - Body Mass Index - - documented in this encounter Patient Instructions Patient InstructionsGurdeep Tyler PA-C - 11/12/2021 12:00 PM CDT Watch closely for worsening symptoms. No hot shower. keep skin cool Take medicines as prescribed and return with questions or concerns Return if not improving. Monitor closely for any problems breathing or swallowing. Try to correlate this with any activities, infections, insect bites, medications, heat, cold, sunlight, pressure on the skin, exercise, excitement, or foods. ER or 911 if worse, particularly breathing or swallowing problems Zyrtec 10 mg am atarax 25 mg at bed Decadron 6 mg daily for 7 days Sarna cream OTC for anti-itch documented in this encounter Progress Notes Gurdeep Tyler PA-C - 11/12/2021 12:00 PM CDT Cough since and had a fever of 101 on Thursday night. Took an at home covid test which was negative Thursday. Woke up Thursday to a rash on arms and abdomen. Exposed to grand kids with URI symptoms. No specific exposure. She is concerned regarding the possibility of COVID. She has had a recent negative COVID test and does have a history of COVID previously.Sore throat. Feels like something swollen in the back of her throat noticeable when she tries to swallow. She has not had any difficulty swallowing however. Fever? Yes Cough? Yes New loss of taste or smell? No Shortness of breath? No Sore throat? Yes Rhinorrhea? Yes Headaches? Yes Nausea? No Myalgias? Yes Diarrhea? No In the last 14 days, has there been exposure to Covid 19 or a person under investigation or quarantine for Covid 19? No Adverse Drug Reactions: Sulfamethoxazole-trimethoprim, Amoxicillin-pot clavulanate, Cefuroxime, and Nitrofurantoin Medications: ARIPiprazole, Levothyroxine Sodium, Suvorexant, busPIRone, camphor- menthol, cetirizine,clonazePAM, desvenlafaxine, dexamethasone, gabapentin, hydrOXYzine HCl, hydroCHLOROthiazide, levothyroxine, rosuvastatin, and verapamil Past medical History: There is no problem list on file for this patient. Family History: History reviewed. No pertinent family history. Social History: Social History Tobacco Use ??? Smoking status: Never Smoker ??? Smokeless tobacco: Never Used Vaping Use ??? Vaping Use: Never used Substance Use Topics ??? Alcohol use: Not on file ??? Drug use: Not on file Review of Systems: All systems were reviewed and found to be negative except as noted below. OBJECTIVE: General: NAD Skin: Mucous membranes are moist, no sign of dehydration. Head: Normocephalic. Eyes: PERRLA, full EOM. External exams normal. Ears: Normal pinnae, canals. TMs: normal Nose: Patent, without deformity, but with some rhinorrhea. Throat: Postnasal drainage noted. Moist mucous membranes without lesions, erythema, or exudate. Neck: Supple. Respiratory: normal respiratory effort. Lung sounds clear to auscultation. No rales. Heart: RR without murmurs, rubs, or gallops. Vital Signs: BP 137/86 (BP Location: Right Arm, BP Cuff Size: Regular - Long) Pulse 96 Temp 36.7??C (98.1 ??F) (Oral) Resp 18 SpO2 98% X-Rays: X-rays are obtained and interpreted independently by myself: No results found. Labs: No results found for any visits on 11/12/21. ASSESSMENT: 1. Cough 2. Uvulitis 3. Viral URI Medical Decision Making: Patient presents Urgent Care for evaluation of URI symptoms plus rash sore throat nasal congestion cough headache fever. Rule out COVID. Most likely diagnosis is viral URI withviral exanthem. PLAN: Patient Instructions Watch closely for worsening symptoms. No hot shower. keep skin cool Take medicines as prescribed and return with questions or concerns Return if not improving. Monitor closely for any problems breathing or swallowing. Try to correlate this with any activities, infections, insect bites, medications, heat, cold, sunlight, pressure on the skin, exercise, excitement, or foods. ER or 911 if worse, particularly breathing or swallowing problems Zyrtec 10 mg am atarax 25 mg at bed Decadron 6 mg daily for 7 days Sarna cream OTC for anti-itch Orders Placed This Encounter Medications ??? Levothyroxine Sodium Sig: Take 88 mcg by mouth. ??? ARIPiprazole (ABILIFY) 2 MG tablet Sig: Take 2 mg by mouth daily. ??? busPIRone (BUSPAR) 15 MG tablet Sig: Take 15 mg by mouth two times a day. ??? clonazePAM (KLONOPIN) 0.5 MG tablet Sig: Take by mouth. ??? desvenlafaxine (PRISTIQ) 100 MG 24 hour release tablet Sig: Take 100 mg by mouth daily. ??? gabapentin (NEURONTIN) 300 MG capsule Sig: Take 300 mg by mouth three times a day. ??? hydroCHLOROthiazide (ORETIC) 25 MG tablet Sig: Take 25 mg by mouth daily. ??? levothyroxine (SYNTHROID) 112 MCG tablet Sig: Take 112 mcg by mouth daily. ??? rosuvastatin (CRESTOR) 20 MG tablet Sig: Take 20 mg by mouth daily at bedtime. ??? BELSOMRA 10 MG TABS Sig: Take 1 Tablet by mouth at bedtime as needed. ??? verapamil (CALAN SR) 120 MG controlled release tablet Sig: Take 120 mg by mouth daily. ??? dexamethasone (DECADRON) 6 MG tablet Sig: Take 1 Tablet (6 mg) by mouth daily with breakfast for 7 days. Dispense: 7 Tablet Refill: 0 ??? cetirizine (ZYRTEC) 10 MG tablet Sig: Take 1 Tablet (10 mg) by mouth daily. Dispense: 30 Tablet Refill: 0 ??? hydrOXYzine HCl (ATARAX) 25 MG tablet Si-2 tabs up tot every 6-8 hours as needed, makes you tired Dispense: 30 Tablet Refill: 0 ??? camphor-menthol (SARNA) 0.5-0.5 % lotion Sig: Apply to areas of rash on body and extremities Dispense: 222 mL Refill: 0 Home Isolation for possible COVID-19 It has been determined that you do not need to be hospitalized and can be isolated at home for possible COVID-19. Here are instructions to follow while you are waiting for results: ??? Stay home. If you need medical care, it is important you follow the instructions below. Do not use public transportation, ride-sharing (such as Uber or Lyft), or taxis. ??? Wash your hands often with soap and water for at least 20 seconds, or use an alcohol-based hand block layer containing 60% to 95% alcohol. Avoid touching your face with unwashed hands. ??? Separate yourself from other people in your home. As much as possible, you should stay in a specific room and away from other people in your home. Also, use a separate bathroom, if available. Avoidhandling pets or other animals while sick. ??? Wear a facemask if you need to be around other people. ??? Cover your mouth and nose with a tissue when you cough or sneeze, throw used tissues in a lined trash can; immediately wash your hands with soap and water wash your hands immediately. ??? Avoid sharing personal household items. You should not share dishes, drinking glasses, cups, eating utensils, towels, or bedding with other people in your home. After using these items, they shouldbe washed thoroughly with soap and water. Clean all high-touch surfaces in your home daily. ??? Animals: Avoid contact with pets and other animals while you are sick. When possible, have another member of your household care for your animals while you are sick. ??? Seek prompt medical attention if your illness is worsening, such as developing shortness of breath or difficulty breathing. e.g., difficulty breathing). o Before seeking care, call your healthcare provider and tell them that you have, or are being evaluated for, COVID-19. If you have a medical emergency and need to call 911, notify the dispatch personnel that you have, or are being evaluated for COVID-19. ??? Remain under home isolation precautions until your healthcare provider or state/local health departments say it is safe for you to discontinue isolation. ??? Your close contacts should monitor their health; they should call their healthcare provider right away if they develop symptoms suggestive of COVID-19. o At least 3 days (72 hours) have passed since resolution of fever without the use of fever-reducingmedications, AND o They have improvement in respiratory symptoms (e.g., cough, shortness of breath); AND o At least 7 days have passed since symptoms first appeared. Please call your care provider if you have questions. Increase clear fluid intake. Symptomatic care, plenty of fluids, monitor for persistent fever, chills, chest pain, or shortness of breath. If you worsen, you should call 911 or go to the Emergency Room. RTC p.r.n. documented in this encounter Nursing Notes sAhley Lion RN - 11/12/2021 12:00 PM CDT Cough since and had a fever of 101 on Thursday night. Took an at home covid test which was negative Thursday. Woke up Thursday to a rash on arms and abdomen. documented in this encounter Plan of Treatment Not on filedocumented as of this encounter Procedures Procedure Name Priority Date/Time Associated Comments Diagnosis 2019 NOVEL Routine 11/12/2021 12:07 Cough Results for this CORONAVIRUS PM CDT procedure are i n the results section. documented in this encounter Results 2019 Novel Coronavirus (COVID-19) - Collect in Clinic Today (11/12/2021 12:07 PM CDT) [facility] Method Time Signature COVID-19 Not Not 11/13/2021 [facility] Interpretation Detected Detected 1:45 AM CENTRAL LAB CDT Source Nares, left 11/13/2021 [facility] and right 1:45 AM CENTRAL LAB CDT Specimen Anatomical Collection Method Collection Time Receive d Time (Source) Location / / Volume Laterality Swab (Source ENTIRE ANTERIOR Non-blood 11/12/2021 12:07 11/13/19 22 3:09 Required) NARIS / Unknown Collection / PM CDT PM CDT Unknown Narrative [facility] - 11/13/2021 1:45 AM CDT Test performed by Loan Administrator Mediated Amplification. TMA has been shown to be equivalent to commercial real-time PCR t ests. This test has been authorized by the FDA under Emergency Use Authorization (E UA) for use by authorized laboratories. [facility] Performing Organization Address City/State/ZIP Code Phon e Number [facility] [address] [address] documented in this encounter Visit Diagnoses Diagnosis Cough Uvulitis Cellulitis and abscess of oral soft tiss ues Viral URI Acute upper respiratory infections of un specified site documented in this encounter Additional Health Concerns Infection Onset Date Last Indicated Resolved Time R/O COVID19 11/12/2021 11/12/2021 11/13/2021 1:45 AM CDT documented as of this encounter
--- OUTSIDE RECORDS SUMMARY | 2022-06-21 19:21 | XMS_ITS | Encounter Summary ---
:1965 Author Organization [place] Address [facility] [place] [address] Care Team Providers Name Role Phone Harriet Haley MD Primary Care Provider [phone] Reason for Visit Reason Comments Urgent Care UTI Encounter Details Date Type Department Care Team Description 09/23/2017 Office Visit [facility] Briana Banuelos Dysuria (Primary Dx); Urgent Care Shaan Peres MD Nonspecific finding on examination of ur ine; [address] Acute [place] [address] [id number] Social History Tobacco Use Types Packs/Day Years Used Date Smoking Tobacco: Former Cigarettes Quit : 09/15/2015 Smokeless Tobacco: Never Alcohol Use Standard Drinks/Week Comments Yes 0 (1 standard drink = 0.6 oz pure alcoho l) SMALL Sex Assigned at Date Recorded Not on file documented as of this encounter Last Filed Vital Signs Vital Sign Reading Time Taken Comments Blood Pressure 122/79 09/23/2017 6:47 PM DECISION ANALYST Pulse 121 09/23/2017 6:47 PM DECISION ANALYST Temperature 36.6 ??C (97.9 ??F) 09/23/2017 6:47 PM DECISION ANALYST Respiratory Rate 14 09/23/2017 6:47 PM DECISION ANALYST Oxygen Saturation 96% 09/23/2017 6:47 PM DECISION ANALYST Inhaled Oxygen Concentration - - Weight 99.8 kg (220 lb) 09/23/2017 6:47 PM DECISION ANALYST Height - - Body Mass Index 33.45 09/28/2016 2:53 PM DECISION ANALYST documented in this encounter Patient Instructions Patient Briana Mitchell MD - 09/23/2017 7:46 PM CST Images from the original note were not included. * BLADDER INFECTION,Female (Adult) A bladder infection (cystitis or UTI) usually causes a constant urge to urinate and a burning when passing urine. Urine may be cloudy, smelly or dark. There may be pain in the lower abdomen. A bladder infection occurs when bacteria from the vaginal area enter the bladder opening (urethra). This can occur from sexual intercourse, wearing tight clothing, dehydration and other factors. HOME CARE: 1. Drink lots of fluids (at least 6-8 glasses a day, unless you must restrict fluids for other medical reasons). This will force the medicine into your urinary system and flush the bacteria out of yourbody. Cranberry juice has been shown to help clear out the bacteria. 2. Avoid sexual intercourse until your symptoms are gone. 3. A bladder infection is treated with antibiotics. You may also be given Pyridium (generic = phenazopyridine) to reduce the burning sensation. This medicine will cause your urine to become a bright orange color. The orange urine may stain clothing. You may wear a pad or panty-liner to protect clothing. PREVENTING FUTURE INFECTIONS: 1. Always wipe from front to back after a bowel movement. 2. Keep the genital area clean and dry. 3. Drink plenty of fluids each day to avoid dehydration. 4. Urinate right after intercourse to flush out the bladder. 5. Wear cotton underwear and cotton-lined panty hose; avoid tight-fitting pants. 6. If you are on control pills and are having frequent bladder infections, discuss with your doctor. FOLLOW UP: Return to this facility or see your doctor if ALL symptoms are not gone after three days of treatment. GET PROMPT MEDICAL ATTENTION if any of the following occur: ?? Fever over 101??F (38.3??C) ?? No improvement by the third day of treatment ?? Increasing back or abdominal pain ?? Repeated vomiting; unable to keep medicine down ?? Weakness, dizziness or fainting ?? Vaginal discharge ?? Pain, redness or swelling in the labia (outer vaginal area) ?? [id number] [employer]. [address] [place] [address], [place] [address]. All rights reserved. This information is not intended as a substitute for professional medical care. Always follow your healthcare professional's instructions. This information has been modified by your health care provider with permission from the publisher. SION ANALYST documented in this encounter Progress Notes Briana Banuelos MD - 09/23/2017 6:40 PM CST SUBJECTIVE: Chief Complaint Patient presents with ??? Urgent Care ??? UTI Lzizie He is a 51 year old female who presents today for a possible UTI. Symptoms of dysuria, urgency, frequency and burning have been going on for 2day(s). Hematuria no. gradual onset, still present and constantand moderate. There is no history of fever, chills, nausea or vomiting. No history of vaginal discharge. This patient does have a history of occasional urinary tract infections. Patient denies long duration, rigors, flank pain, temperature > 101 degrees F. and Vomiting, significant nausea or diarrhea or vaginal discharge, vaginal odor and vaginal itching Past Medical History: Diagnosis Date ??? Anxiety ??? Cerebral infarction (H) ??? Depressive disorder ??? Herpes zoster without mention of complication ??? Migraine, unspecified, without mention of intractable migraine without mention of status migrainosus ??? Thyroid disease ALLERGIES: No known allergies; Sulfamethoxazole w/trimethoprim; Augmentin; Cefuroxime; and Nitrofurantoin Current Outpatient Prescriptions Medication ??? sulfamethoxazole-trimethoprim (BACTRIM DS) 800-160 MG per tablet ??? azithromycin (ZITHROMAX) 250 MG tablet [...] ALSO ??? Hypertension Mother THYROID ALSO ROS: CONSTITUTIONAL:NEGATIVE for fever, chills, INTEGUMENTARY/SKIN: NEGATIVE for worrisome rashes, EYES: NEGATIVE for vision changes or irritation ENT/MOUTH: NEGATIVE for ear, mouth and throat problems RESP:NEGATIVE for significant cough or SOB GI: NEGATIVE for nausea, abdominal pain, OBJECTIVE: BP 122/79 Pulse 121 Temp 97.9 ??F (36.6 ??C) (Oral) Resp 14 Wt 220 lb (99.8 kg) SpO2 96% BMI 33.45 kg/m2 GENERAL APPEARANCE: healthy, alert and no distress RESP: lungs clear to auscultation - no rales, rhonchi or wheezes CV: regular rates and rhythm, normal S1 S2, no murmur noted ABDOMEN: soft, nontender, no HSM or masses and bowel sounds normal BACK: No CVA tenderness SKIN: no suspicious lesions or rashes Results for orders placed or performed in visit on 09/23/17 Urine Microscopic Result Value Ref Range WBC Urine >100 (A) OTO2^O - 2 /HPF RBC Urine 10-25 (A) OTO2^O - 2 /HPF Squamous Epithelial /LPF Urine Moderate (A) FEW^Few /LPF Bacteria Urine Many (A) NEG^Negative /HPF ASSESSMENT: Dysuria - Urine Microscopic Nonspecific finding on examination of urine - Urine Culture Aerobic Bacterial Acute cystitis without hematuria - sulfamethoxazole-trimethoprim (BACTRIM DS) 800-160 MG per tablet; Take 1 tablet by mouth 2 times daily for 7 days (not allergic, only nausea) Drink plenty of fluids. Prevention and treatment of UTI's discussed.Signs and symptoms of pyelonephritis mentioned. Follow up with primary care physician if not improving We discussed that a urine culture is being performed and that if we find that if there is a bacteriain the urine that is resistant to the prescribed antibiotic he/she will receive call to change the antibiotic to better cover the infection. SION ANALYST documented in this encounter Nursing Notes Jennifer Mohan MA - 09/23/2017 6:40 PM CST Chief Complaint Patient presents with ??? Urgent Care ??? UTI Initial BP 122/79 Pulse 121 Temp 97.9 ??F (36.6 ??C) (Oral) Resp 14 Wt 220 lb (99.8 kg) SpO2 96% BMI 33.45 kg/m2 Estimated body mass index is 33.45 kg/(m^2) as calculated from the following: Height as of 09/28/16: 5' 8 (1.727 m). Weight as of this encounter: 220 lb (99.8 kg). Medication Reconciliation: franck Mohan TERMITE EXTERMINATOR SION ANALYST documented in this encounter Plan of Treatment Not on filedocumented as of this encounter Procedures Procedure Name Priority Date/Time Associated Diagnosis Comme nts URINE CULTURE Routine 09/23/2017 7:31 PM Nonspecific finding R esults for this DECISION ANALYST on examination of procedure are in urine the results section. URINE MICROSCOPIC Routine 09/23/2017 7:00 PM Dysuria Resu lts for this DECISION ANALYST procedure are i n the results section. documented in this encounter Results (ABNORMAL) Urine Culture Aerobic Bacterial (09/23/2017 7:31 PM DECISION ANALYST) Component Value Ref Test Analysis Performed At [facility] gist Range Method Time Signature Specimen Midstream Urine [facility] Culture Micro >100,000 colonies/mL 09/25/2017 [facility]RS[facility] OF Escherichia coli 9:20 PM DECISION ANALYST [facility] (A) [facility] Specimen (Source) Anatomical Collection Method Collection Time Re ceived Time Location / / Volume Laterality Examination of 09/23/2017 7:31 09/23/2017 7:33 midstream urine PM DECISION ANALYST PM DECISION ANALYST specimen (procedure) Organism Antibiotic Method Susceptibility Escherichia coli Ampicillin MARY <=2 ug/mL: Susc eptible Escherichia coli Cefazolin MARY <=4 ug/mL: Susc eptible Comment: Cefazolin MARY breakpoints ar e for the treatment of uncomplicated urinary tract infections. ??For the treat ment of systemic infections, please contact the laboratory for additional te sting. Escherichia coli Cefoxitin MARY <=4 ug/mL: Susc eptible Escherichia coli Ceftazidime MARY <=1 ug/mL: Susc eptible Escherichia coli Ceftriaxone MARY <=1 ug/mL: Susc eptible Escherichia coli Ciprofloxacin MARY <=0.25 ug/mL: S usceptible Escherichia coli Gentamicin MARY <=1 ug/mL: Susc eptible Escherichia coli Levofloxacin MARY <=0.12 ug/mL: S usceptible Escherichia coli Nitrofurantoin MARY <=16 ug/mL: Tiffany ceptible Escherichia coli Tobramycin MARY <=1 ug/mL: Susc eptible Escherichia coli Trimethoprim/Sulfamethoxazole MARY < =1/19 ug/mL: Susceptible Escherichia coli Ampicillin/Sulbactam MARY <=2 ug/mL: Susceptible Escherichia coli Piperacillin/Tazo MARY <=4 ug/mL: Chu sceptible Escherichia coli Cefepime MARY <=1 ug/mL: Susc eptible Briana Banuelos MD LAB - MICRO GENERAL ORDERABL ES Performing Organization Address City/State/ZIP Code Phon e Number [address] (ABNORMAL) Urine Microscopic (09/23/2017 7:00 PM DECISION ANALYST) [facility] Method Time Signature WBC Urine >100 (A) OTO2^O - 09/23/2017 [facility] 2 /HPF 7:16 PM DECISION ANALYST [facility] RBC Urine 10-25 (A) OTO2^O - 09/23/2017 [facility] 2 /HPF 7:16 PM DECISION ANALYST [facility] [place] Squamous Moderate (A) FEW^Few 09/23/2017 EXCHANGE Epithelial /LPF 7:16 PM DECISION ANALYST CLINICS /LPF Urine [place] Bacteria Urine Many (A) NEG^Negat 09/23/2017 [facility] [place] /HPF 7:16 PM DECISION ANALYST [facility] [place] Specimen Anatomical Collection Method Collection Time Receive d Time (Source) Location / / Volume Laterality 09/23/2017 7:00 PM 8 7:10 DECISION ANALYST PM DECISION ANALYST Briana Banuelos MD LAB - URINE ORDERABLES Performing Organization Address City/State/ZIP Code Phon e Number [facility] [address] [place] [address] documented in this encounter Visit Diagnoses Diagnosis Dysuria - Primary Nonspecific finding on examination of ur ine Other nonspecific finding on examination of urine Acute cystitis without hematuria Acute cystitis documented in this encounter Care Teams Musical Engineer Relationship Specialty Start Date End Date Harriet Haley MD PCP - General Physician Spindle Repairer 10/01/15 [facility] [address] [place], [place] [id number] documented as of this encounter
--- OUTSIDE RECORDS SUMMARY | 2022-06-21 19:21 | XMS_ITS | Encounter Summary ---
:1965 Author Organization [place] Address Formerly [facility]0 [facility] [address] Care Team Providers Name Role Phone Harriet Haley MD Primary Care Provider [phone] Reason for Visit Reason Comments Urgent Care Pharyngitis Possible strep Encounter Details Date Type Department Care Team Description 04/26/2017 Office Visit [facility] Liu Gates, Throat pain (Primary Urgent Care Shaan kelly MD Dx) [address] [facility] [address] [place] [address] [id number] Social History Tobacco Use Types Packs/Day Years Used Date Smoking Tobacco: Former Cigarettes Quit : 09/15/2015 Smokeless Tobacco: Never Alcohol Use Standard Drinks/Week Comments Yes 0 (1 standard drink = 0.6 oz pure alcoho l) SMALL Sex Assigned at Date Recorded Not on file documented as of this encounter Last Filed Vital Signs Vital Sign Reading Time Taken Comments Blood Pressure 139/72 04/26/2017 11:26 AM CDT Pulse 103 04/26/2017 11:26 AM CDT Temperature 37.1 ??C (98.8 ??F) 04/26/2017 11:26 AM CDT Respiratory Rate - - Oxygen Saturation 97% 04/26/2017 11:26 AM CDT Inhaled Oxygen Concentration - - Weight - - Height - - Body Mass Index - - documented in this encounter Progress Notes Liu Gates MD - 04/26/2017 11:00 AM CDT SUBJECTIVE: Lizzie He is a 51 year old female who presents to clinic today for the following health issues: Pharyngitis ?? Duration: 5 days ?? Description (location/character/radiation): throat ?? Intensity: severe ?? Accompanying signs and symptoms: Chills, fever, hard to swallow ?? History (similar episodes/previous evaluation): Unsure where she got the virous ?? Precipitating or alleviating factors: None ?? Therapies tried and outcome: Ibuprofen helps with fever OBJECTIVE: Vitals as noted above. Appears moderate distress. Ears: normal Oropharynx: moderate erythema Neck: supple and moderate nontender anterior cervical nodes Lungs: clear to IPPA Rapid Strep test is negative ASSESSMENT: 1 pharyngitis 2. Sinusitis PLAN: Per orders. Gargle, use acetaminophen or other OTC analgesic, and take Rx fully as prescribed.Call if other family members develop similar symptoms. See prn. This appears to be more of an upper respiratory infection probably sinusitis. The throat pain is secondary to the infection I think this in her sinuses. This is probably viral I would like to do at first his use symptomatic care with increased fluids. In addition we will give her steroid medication to take over the next 5 days in hopes of decreasing the amount of drainage from her nose I think this will help her throat significantly. If within the next 48 hours she does not seem to improve I would add in azithromycin A note was given to her today. This node does allow for today as well as the past 3 days, work excuse. 25 minute exam and counseling. 50% of the time in counseling regards to the type of infection this is treatmentand follow-up documented in this encounter Nursing Notes Rachna Alston CMA - 04/26/2017 11:00 AM CDT Images from the original note were not included. Chief Complaint Patient presents with ??? Urgent Care ??? Pharyngitis Possible strep Initial BP 139/72 (BP Location: Right arm, Patient Position: Chair, Cuff Size: Adult Regular) Pulse 103 Temp 98.8 ??F (37.1 ??C) (Oral) SpO2 97% Estimated body mass [...] Diagnosis Comme nts RAPID STREP SCREEN Routine 04/26/2017 11:40 AM Throat pain Re sults for this THROAT SWAB CDT procedure are i n the results section. BETA HEMOLYTIC Routine 04/26/2017 11:40 AM Throat pain Result s for this STREP GROUP A CDT procedure are in CULTURE the results section. documented in this encounter Results Beta strep group A culture (04/26/2017 11:40 AM CDT) Component Value Ref Test Analysis Performed At [facility] Range Method Time Signature Specimen Throat [facility] Culture Micro No beta 04/27/2017 [facility] hemolytic 11:45 AM CLINICS Streptococcus CDT [place] Group A isolated Specimen Anatomical Collection Method Collection Time Receive d Time (Source) Location / / Volume Laterality Specimen from 04/26/2017 11:40 04/26/2017 throat AM CDT 11:41 AM CDT (specimen) Liu Gates MD LAB - MICRO GENERAL ORDERABL ES Performing Organization Address City/State/ZIP Code Phon e Number [facility] [id number] [place] [address] Strep, Rapid Screen (04/26/2017 11:40 AM CDT) Component Value Ref Test Analysis Performed At [facility] Range Method Time Signature Specimen Throat [facility] Rapid Strep A NEGATIVE: No 04/26/2017 [facility] Screen Group A 11:46 AM [facility] antigen detected by immunoassay, await culture report. Specimen Anatomical Collection Method Collection Time Receive d Time (Source) Location / / Volume Laterality Specimen from 04/26/2017 11:40 04/26/2017 throat AM CDT 11:41 AM CDT (specimen) Liu Gates MD LAB - MICRO GENERAL ORDERABL ES Performing Organization Address City/State/[facility] Code Phon e Number [facility] [id number] [place] [address] documented in this encounter Visit Diagnoses Diagnosis Throat pain - Primary documented in this encounter Care Teams Agency Service Coordinator Relationship Specialty Start Date End Date Harriet Haley MD PCP - General Physician Locomotive Oiler 10/01/15 [facility] [address] [facility] [place] [phone] documented as of this encounter
--- OUTSIDE RECORDS SUMMARY | 2022-06-21 19:21 | XMS_ITS | Clinical Summary ---
:1965 Author Organization [facility] Address [address] [place] [address] Care Team Providers Name Role Phone Needs Pcp, Assignment Primary Care Provider Source Comments You are receiving this document as you are listed as the primary care provider,follow-up provider, or the patient has been referred to you for consultation.This is in compliance with the Medicare and Medicaid EHR Incentive Program,which states Providers who transition their patient to another setting of careor provider of care or refers their patient to another provider of care shouldprovide summarycare record for each transition of care or referral. baseclick Allergies Active Allergy Reactions Severity Noted Date Comments Amoxicillin-Pot Clavulanate Rash Low 05/08/2016 Cefuroxime Rash Low 05/08/2016 Nitrofurantoin Rash Low 05/08/2016 Pruritic rash Sulfamethoxazole-Trimethoprim Nausea 05/08/2016 Stomach pain and nausea Medications Medication Sig Dispensed Refills Start Date End Date Status Levothyroxine Sodium Take 88 mcg by 0 Active mouth. ARIPiprazole (ABILIFY) 2 Take 2 mg by 0 10/15/2021 Active MG tablet mouth daily. busPIRone (BUSPAR) 15 MG Take 15 mg by 0 2021 Active tablet mouth two times a day. clonazePAM (KLONOPIN) 0.5 Take by mouth. 0 2 Active MG tablet desvenlafaxine (PRISTIQ) Take 100 mg by 0 10/15/2021 Active 100 MG 24 hour release mouth daily. tablet gabapentin (NEURONTIN) Take 300 mg by 0 10/19/2021 Active 300 MG capsule mouth three times a day. hydroCHLOROthiazide Take 25 mg by 0 09/20/2021 Active (ORETIC) 25 MG tablet mouth daily. levothyroxine (SYNTHROID) Take 112 mcg by 0 10/03/19 22 Active 112 MCG tablet mouth daily. rosuvastatin (CRESTOR) 20 Take 20 mg by 0 09/20/2021 Active MG tablet mouth daily at bedtime. BELSOMRA 10 MG TABS Take 1 Tablet by 0 10/07/2021 Active mouth at bedtime as needed. verapamil (CALAN SR) 120 Take 120 mg by 0 09/23/2021 Active MG controlled release mouth daily. tablet cetirizine (ZYRTEC) 10 MG Take 1 Tablet 30 Tablet 0 11/12/2021 Active tablet (10 mg) by mouth daily. hydrOXYzine HCl (ATARAX) 1-2 tabs up tot 30 Tablet 0 Active 25 MG tablet every 6-8 hours as needed, makes you tired camphor-menthol (SARNA) Apply to areas 222 mL 0 11/12/2021 Active 0.5-0.5 % lotion of rash on body and extremities Active Problems No known active problems Social History Tobacco Use Types Packs/Day Years [...] - - Body Mass Index - - Plan of Treatment Health Maintenance Due Date Last Done Comments Cervical Cancer Screening 1965 Due Colon Cancer Screening Plan 1965 Due Hep C Screening (Preventive 1965 Services) HepB (1) 1965 Mammogram 1965 COVID-19 Vaccine (#1) 04/27/1966 HIV Screening (Preventive 1981 Services) Adult Preventive Visit 10/26/1983 Cholesterol 2010 Zoster/Shingles (1 of 2) 10/26/2015 Influenza (#1) 2022 04/29/2021, 05/07/2020, 05/02/2019, Additional history exists DTaP/Tdap/Td (2 - Tdap) 10/09/2024 10/09/2014 Pneumococcal Aged Out 07/20/2013, 07/20/2013, No longe r eligible 01/01/2011 based on patient 's age to complete this topic HepA Aged Out No longer eligib le based on patient 's age to complete this topic Hib Aged Out No longer eligib le based on patient 's age to complete this topic IPV (Polio) Aged Out No longer eligib le based on patient 's age to complete this topic MCV4 Aged Out No longer eligib le based on patient 's age to complete this topic Insurance Payer Benefit Plan / Subscriber ID Effective Dates Phone Addre ss Type Group [facility] [id number] 2018-Present Commercial Care Teams Assistant Accounting Manager Relationship Specialty Start Date End Date Needs Pcp, Assignment PCP - General 11/15/21 [place] [address]
--- OUTSIDE RECORDS SUMMARY | 2022-06-21 19:21 | XMS_ITS | Encounter Summary ---
:1965 Author Organization [place] Address [address] [facility] [place] [address] Care Team Providers Name Role Phone Harriet Haley MD Primary Care Provider [phone] Reason for Visit Reason Comments Urgent Care Trauma R foot had been painful for x4 days, tried icing and resting it. Worked last night and she came home and foot was swollen. Hx of stress Fx on L foot. Encounter Details Date Type Department Care Team Description 04/15/2017 Office Visit [facility] Briana Banuelos Right fo ot pain (Primary Dx); Urgent Care Shaan Peres MD Metatarsalgia of right foot [address] [facility] [address] [place] [address] [phone] Social History Tobacco Use Types Packs/Day Years Used Date Smoking Tobacco: Former Cigarettes Quit : 09/15/2015 Smokeless Tobacco: Never Alcohol Use Standard Drinks/Week Comments Yes 0 (1 standard drink = 0.6 oz pure alcoho l) SMALL Sex Assigned at Date Recorded Not on file documented as of this encounter Last Filed Vital Signs Vital Sign Reading Time Taken Comments Blood Pressure 132/73 04/15/2017 7:48 PM CDT Pulse 93 04/15/2017 7:48 PM CDT Temperature 37.2 ??C (98.9 ??F) 04/15/2017 7:48 PM CDT Respiratory Rate - - Oxygen Saturation 95% 04/15/2017 7:48 PM CDT Inhaled Oxygen Concentration - - Weight - - Height - - Body Mass Index - - documented in this encounter Patient Instructions Patient InstructionsBriana Banuelos MD - 04/15/2017 8:16 PM CDT Images from the original note were not included. What is Metatarsalgia? Metatarsalgia is pain in the ball of your foot. It is often caused by wearing shoes with thin soles and high heels. This puts extra pressure on the bones in the ball of the foot. Standing or walking toby hard surface for long periods also puts added pressure on the bones, causing pain. The pain can occur under any of the five metatarsal bones, although it's most common in the second. Bent or twisted toes and bunions can make the problem worse. So can being overweight. Sometimes high arches or arthritis can also cause metatarsalgia. Inside the ball of your foot The long bones in the middle of your foot are called the metatarsal bones. Each metatarsal bone endsin the ball of the foot. When you walk, these bones bear the weight of your body as your foot pushesoff the ground. If there is more pressure on the end of one bone, it presses on the skin beneath it.This causes pain and inflammation in the ball of the foot (metatarsalgia). A callus (a hard growth of skin) may also form on the ball of the foot. Symptoms The most common symptom of metatarsalgia is pain in the ball of the foot. It may feel as if you havea stone in your shoe. The ball of the foot may also become red and inflamed, and a callus may form under the end of the metatarsal bone. Date Last Reviewed: 05/08/2015 ?? [id number] [employer]. [address] [place] [address], [place] [address]. All rights reserved. This information is not intended as a substitute for professional medical care. Always follow your healthcare professional's instructions. Treating Metatarsalgia Metatarsalgia is pain in the ball of your foot, the area between your arch and your toes. The painusually starts in one or more of the five bones??in this area under the toes. These bones are calledthe metatarsals. Often, a callus builds up in this area. In most cases, wearing low-heeled, well-cushioned shoes and filing down the callus will ease the pain. If these steps don???t work, you may need surgery to remove part of the bone. To take pressure off the ball of your foot and ease the pain, your healthcare provider may suggest that you do one or more of the following. Wear shoes with padded soles Wear shoes with thick padding in the soles. Keep heels low. Make sure the shoe is wide across the ball of??your foot and??your toes. Using a metatarsal pad Put a metatarsal pad in??your shoe. This lifts and takes pressure off the painful area. To insert the pad: ?? Put a small lipstick neil on the callus. ?? Step into the shoe to leave a neil on the insole. ?? Peel the backing off the pad. Then put the pad in the shoe just behind the lipstick neil. You may also be able to find inserts with built-in metatarsal pads. Filing the callus 1. Soak your foot in warm water for a few minutes to soften the skin. 2. Dry the foot. 3. Gently rub the callus with a pumice stone or nail file to remove the hard skin. Stop if??bleedingor pain occurs. If you have diabetes, see your??diabetes healthcare provider for foot care. Date Last Reviewed: 05/08/2015 ?? [id number] [employer]. [address] [place] [address], [place] [address]. All rights reserved. This information is not intended as a substitute for professional medical care. Always follow your healthcare professional's instructions. What Are Neuromas of the Foot? The ball of your foot is the bottom part just behind your toes. Bands of tissue (ligaments) connect the bones in the ball of your foot. Nerves run between the bones and underneath the ligaments. When anerve becomes pinched, this causes it to swell and become painful due to the thickening of the tissue that surrounds the nerve. The painful, swollen nerve is called a neuroma (also called Anderson's neuroma). A neuroma most often occurs at the base of either the third and fourth toes or the second and third toes. What causes a neuroma? Wearing tight or high-heeled shoes can cause a neuroma. Shoes that are too narrow or too pointed squeeze the bones in the ball of the foot. Shoes with high heels put extra pressure on the ends of the bones. When the bones are squeezed together, they pinch the nerve that runs between them. Symptoms The most common symptom of a neuroma is pain in the ball of the foot between two toes. The pain may be dull or sharp. It may feel as if you have a stone in your shoe. You may also have tingling or numbness in one or both of the toes. Symptoms may occur after you have been walking or standing for a while. Taking off your shoes and rubbing the ball of your foot may decrease or relieve the pain. Preventing future problems To prevent a future neuroma, buy shoes with plenty of room across the ball of the foot and in the toes. This keeps the bones from being squeezed together. Wearing low-heeled shoes (less than??2 inches)??also puts less pressure on the bones and nerves in the ball of the foot. Date Last Reviewed: 04/19/2015 ?? [id number] [employer]. [address] [place] [address], [place] [address]. All rights reserved. This information is not intended as a substitute for professional medical care. Always follow your healthcare professional's instructions. documented in this encounter Progress Notes Briana Banuelos MD - 04/15/2017 7:25 PM CDT SUBJECTIVE Chief Complaint Patient presents with ??? Urgent Care ??? Trauma R foot had been painful for x4 days, tried icing and resting it. Worked last night and she came home and foot was swollen. Hx of stress Fx on L foot. Lizzie He is a 51 year old female who has had a right foot pain that started 4 days ago. No known injury . Symptoms have been sudden, unchanged . Prior history of related problems: no prior problems with this area in the past. Had past stress fracture on the left foot- wonders if she has stress fracture Past Medical History: Diagnosis Date ??? Anxiety [...] THYROID ALSO ROS: CONSTITUTIONAL:NEGATIVE for fever, chills, change in weight INTEGUMENTARY/SKIN: NEGATIVE for worrisome rashes, moles or lesions EYES: NEGATIVE for vision changes or irritation ENT/MOUTH: NEGATIVE for ear, mouth and throat problems RESP:NEGATIVE for significant cough or SOB GI: NEGATIVE for nausea, abdominal pain, heartburn, or change in bowel habits Review of systems negative except as stated below OBJECTIVE: BP 132/73 (BP Location: Right arm, Patient Position: Chair, Cuff Size: Adult Regular) Pulse 93 Temp 98.9 ??F (37.2 ??C) (Oral) SpO2 95% Appearance: in mild distress and cooperative. right FOOT No swelling, contusion or pain with ROM of the ankle No pain with ROM of toes Sensation and movement intact all toes, capillary refill 2 second Tenderness to palpation MTP region of the foot especially between 2nd and 3rd metatarsal heads slight swelling dorsum of foot No contusion of foot X-ray: no fracture or dislocation noted, pending review by Radiologist. ASSESSMENT: Right foot pain - XR Foot Right G/E 3 Views; Future No splint- She has cam walker at home Metatarsalgia of right foot cold packs to reduce swelling, then later warm packs to encourage blood flow to the painful region Use cane or crutch to limit weight bearing if pain is causing problems with ambulating She declined narcotic RX Ibuprofen/ acetaminophen for alternative for pain Patient was given recommendations about appropriate footwear to improve pain symptoms Discussed common conditions in her region of pain- Metatarsalgia and neuroma Follow-up with primary care or Ortho or podiatry if persistent symptoms- May consider repeat x-ray In 2-3 weeks to evaluate for stress fracture documented in this encounter Nursing Notes Rachna Alston CMA - 04/15/2017 7:25 PM CDT Images from the original note were not included. Chief Complaint Patient presents with ??? Urgent Care ??? Trauma R foot had been painful for x4 days, tried icing and resting it. Worked last night and she came home and foot was swollen. Hx of stress Fx on L foot. Initial BP 132/73 (BP Location: Right arm, Patient Position: Chair, Cuff Size: Adult Regular) Pulse 93 Temp 98.9 ??F (37.2 ??C) (Oral) SpO2 95% Estimated body mass index is 33.45 kg/(m^2) as calculated from the following: Height as of 09/28/16: 5' 8 (1.727 m). Weight as of 09/28/16: 220 lb (99.8 kg). Medication Reconciliation: complete Rachna Alston CMA (AAMA) documented in this encounter Plan of Treatment Not on filedocumented as of this encounter Results XR Foot Right G/E 3 Views (04/15/2017 8:11 PM CDT) Anatomical Region Laterality Modality Foot, Ankle Right Computed Radiography Specimen (Source) Anatomical Location Collection Method / Collectio n Time Received Time / Laterality Volume Impressions 04/16/2017 4:52 PM CDT IMPRESSION: 1. Question hammertoe deformity of the t hird and fourth toes. 2. No fracture or malalignment. NEIL HAMLIN MD Narrative 04/16/2017 4:52 PM CDT [...] to positioning of the patient. Procedure Note Neil Hamlin MD - 04/16/2017Form atting of this [...] fourth toes. 2. No fracture or malalignment. NEIL HAMLIN MD Briana Banuelos MD IMG DIAGNOSTIC IMAGING ORDER NATALY documented in this encounter Visit Diagnoses Diagnosis Right foot pain - Primary Pain in limb Metatarsalgia of right foot Enthesopathy of ankle and tarsus, unspec ified Right foot pain Pain in limb documented in this encounter Care Teams Digester Capper Relationship Specialty Start Date End Date Harriet Haley MD PCP - General Physician Section Weaver 10/01/15 [facility] [address] [place] [address] documented as of this encounter
--- OUTSIDE RECORDS SUMMARY | 2022-06-21 19:21 | XMS_ITS | Encounter Summary ---
:1965 Author Organization [facility] Address [address] [place] [address] Care Team Providers Name Role Phone Unavailable Primary Care Provider Unavailable Encounter Details Date Type Department Care Team Description 10/10/2005 PN Conversion Only [facility] CONVERSION [address] [place] [address] Social History Tobacco Use Types Packs/Day Years Used Date Smoking Tobacco: Never Assessed Sex Assigned at Date Recorded Not on file documented as of this encounter Plan of Treatment Not on filedocumented as of this encounter Visit Diagnoses Not on filedocumented in this encounter
--- OUTSIDE RECORDS SUMMARY | 2022-06-21 19:22 | XMS_ITS | Encounter Summary ---
:1965 Author Organization [facility] Address [address] [place] [address] Care Team Providers Name Role Phone Harriet Haley MD Primary Care Provider [phone] Reason for Visit Reason Comments Post-op Problem Encounter Details Date Type Department Care Team Description 11/13/2015 Emergency [facility] Kana Westbrook Low back pain without [facility] MD [place] sciatica, unspecified [address] [place] [facility] back pain laterality [facility] [id number] [facility] [phone] [place], [place] [address] (Wo rk) Social History Tobacco Use Types Packs/Day Years Used Date Smoking Tobacco: Former Cigarettes Quit : 09/15/2015 Alcohol Use Standard Drinks/Week Comments Yes 0 (1 standard drink = 0.6 oz pure alcoho l) SMALL Sex Assigned at Date Recorded Not on file documented as of this encounter Last Filed Vital Signs Vital Sign Reading Time Taken Comments Blood Pressure 133/83 11/13/2015 10:27 PM CDT Pulse 109 11/13/2015 7:21 PM CDT Temperature 36.6 ??C (97.9 ??F) 11/13/2015 7:21 PM CDT Respiratory Rate 18 11/13/2015 7:21 PM CDT Oxygen Saturation 97% 11/13/2015 10:27 PM CDT Inhaled Oxygen Concentration - - Weight 104.3 kg (230 lb) 11/13/2015 7:21 PM CDT Height - - Body Mass Index 34.97 10/30/2015 3:00 PM CDT documented in this encounter Discharge Instructions Discharge InstructionsKana Westbrook MD - 11/13/2015 10:05 PM CDT Discharge Instructions Back Pain You were seen today for back pain. Back pain can have many causes, but most will get better without surgery or other specific treatment. Sometimes there is a herniated (???slipped?? ) disc. We don???t usually do MRI scans to look for these right away, since most herniated discs will get better on their own with time. Today, we did not find any evidence that your back pain was caused by a serious condition, such as an infection, fracture, or tumor. However, sometimes symptoms develop over time and cannot be found during an emergency visit, so it is very important that you follow up with your primarydoctor. Return to the Emergency Department if: ??? You develop a fever with your back pain. ??? You have weakness or change in sensation in one or both legs. ??? You lose control of your bowels or bladder, or can???t empty your bladder. ??? Your pain gets much worse. Follow-up with your doctor: ??? Unless your pain has completely gone away, please make an appointment with your doctor within one week. You may need further management of your back pain, such as more pain medication, imaging suchas an X-ray or MRI, or physical therapy. What can I do to help myself? Remain Active -- People are often afraid that they will hurt their back further or delay recovery by remaining active, but this is one of the best things you can do for your back. In fact, prolonged bed rest is not recommended. Studies have shown that people with low back pain recover faster when they remain active. Movement helps to bring blood flow to the muscles and relieve muscle spasms as well as preventing loss of muscle strength. ??? Heat -- Using a heating pad can help with low back pain during the first few weeks. Do not sleepwith a heating pad, as you can be burned. ??? Pain medications - You may take a pain medication such as Tylenol?? (acetaminophen), Advil??, Nuprin?? (ibuprofen) or Aleve?? (naproxen). If you have been given a narcotic such as Vicodin?? (hydrocodone with acetaminophen), Percocet?? (oxycodone with acetaminophen), codeine, or a muscle relaxant such as Flexeril?? (cyclobenzaprine) or Soma?? (carisoprodol), do not drive for four hours after you have taken it. If the narcotic contains Tylenol?? (acetaminophen), do not take Tylenol?? with it. All narcotics will cause constipation, so eat a high fiber diet. If you were given a prescription for medicine here today, be sure to read all of the information (including the package insert) that comes with your prescription. This will include important information about the medicine, its side effects, and any warnings that you need to know about. The pharmacist who fills the prescription can provide more information and answer questions you may have about the medicine. If you have questions or concerns that the pharmacist cannot address, please call or return to the Emergency Department. Opioid Medication Information Pain medications are among the most commonly prescribed medicines, so we are including this information for all our patients. If you did not receive pain medication or get a prescription for pain medicine, you can ignore it. You may have been given a prescription for an opioid (narcotic) pain medicine and/or have received apain medicine while here in the Emergency Department. These medicines can make you drowsy or impaired. You must not drive, operate dangerous equipment, or engage in any other dangerous activities whiletaking these medications. If you drive while taking these medications, you could be arrested for DUI, or driving under the influence. Do not drink any alcohol while you are taking these medications. Opioid pain medications can cause addiction. If you have a history of chemical dependency of any type, you are at a higher risk of becoming addicted to pain medications. Only take these prescribed medications to treat your pain when all other options have been tried. Take it for as short a time and asfew doses as possible. Store your pain pills in a secure place, as they are frequently stolen and provide a dangerous opportunity for children or visitors in your house to start abusing these powerful medications. We will not replace any lost or stolen medicine. As soon as your pain is better, you should flush all your remaining medication. Many prescription pain medications contain Tylenol?? (acetaminophen), including Vicodin??, Tylenol #3??, [place]??, Lortab??, and Percocet??. You should not take any extra pills of Tylenol?? if you are using these prescription medications or you can get very sick. Do not ever take more than 3000 mg of acetaminophen in any 24 hour period. All opioids tend to cause constipation. Drink plenty of water and eat foods that have a lot of fiber, such as fruits, vegetables, prune juice, apple juice and high fiber cereal. Take a laxative if you don???t move your bowels at least every other day. Miralax??, Milk of Magnesia, Colace??, or Senna?? can be used to keep you regular. Remember that you can always come back to the Emergency Department if you are not able to see your regular doctor in the amount of time listed above, if you get any new symptoms, or if there is anything that worries you. documented in this encounter Medications at Time of Discharge Medication Sig Dispensed Refills Start Date End Date acetaminophen (TYLENOL) Take 2 tablets (1,000 0 0 10/03/2015 500 MG mg) by mouth 3 times tabletIndications: daily For one week Acute low back pain then change to as needed. Do not take other tylenol/acetaminophen medications. DULoxetine HCl Take 120 mg by mouth 0 (CYMBALTA PO) every evening ibuprofen Take 1 tablet (600 120 tablet 0 10/03/2015 (ADVIL,MOTRIN) 600 MG mg) by mouth every 8 tabletIndications: hours as needed for Acute low back pain other (mild pain) LEVOTHYROXINE SODIUM PO Take 88 mcg by mouth 0 daily order for Equipment being ordered: Cane (E0100) 1 Device 0 10/03/2015 DMEIndications: Acute Treatment Diagnosis: Acute back pain low back pain oxyCODONE (ROXICODONE) Take 1 tablet (5 mg) 12 tablet 0 12/2015 5 MG immediate release by mouth every 4 tablet hours as needed for pain Verapamil HCl (CALAN SR Take 120 mg by mouth 0 PO) every morning polyethylene glycol Take 17 g (1 capful) 510 g 1 201506/26/2016 (MIRALAX) by mouth 3 times powderIndications: daily as needed for Constipation, constipation unspecified constipation type Pregabalin (LYRICA PO) Take 300 mg by mouth 0 06/26/2016 2 times daily Varenicline Tartrate Take 1 mg by mouth 2 0 06/26/2016 (CHANTIX PO) times daily documented as of this encounter ED Notes Vanessa Grijalva - 11/13/2015 10:28 PM CDT Patient educated on narcotic pain medicine. Patient received follow-up information as needed and medication instructions for Oxycodone. Educated to not drive or operate equipment while taking this medication. Patient educated that medication can make them drowsy or impaired. Educated that pain medications can cause addiction and that opioids can cause constipation, and to drink plenty of fluids and consume fiber. Patient has no other questions at this time. Sunita Flores - 11/13/2015 8:28 PM CDT Checked pts catheter, deflated balloon (10ml), inserted catheter further into the urethra and re-inflated balloon (10ml). Pt stated the pressure and discomfort were relieved after repositioning the catheter. The holding device was also removed and moved up on the leg as it appeared to be tugging at the catheter prior to adjustments. A new securing device was attached providing a little slack for movement. No leakage observed after adjustments. Kana Westbrook MD - 11/13/2015 7:58 PM CDT Images from the original note were not included. History Chief Complaint: Back Pain HPI Lizzie He is a 50 year old female who presents with back pain. The patient reports that this past May she had bladder surgery where mesh was inserted for urinary incontinence. Due to somedefective material, the patient had to have a repeat procedure 1 week ago and had a catheter put in.Today the patient developed some severe bilateral lower back pain that is constant, but exacerbated with movement. She also notes that her catheter began leaking today. Here in the ED, the patient complains of continued back pain, but denies any fever, nausea, vomiting, loss of bowel/bladder control, neck pain, numbness, weakness, obvious trauma, rash, chills, diaphoresis, abdominal pain, or other problems at this time. Of note, the patient reports she had a dose of ibuprofen and Tylenol 3 hours prior to arrival. Allergies: The patient has no known drug allergies. Medications: Oxycodone Tylenol Ibuprofen Miralax Lyrica Chantix Calan Cymbalta Levothyroxine Past Medical History: Migraine Herpes Zoster Past Surgical History: C section x2 Family History: Father: Diabetes, HTN Mother: HTN, Thyroid Social History: Marital Status: [2] The patient is a former smoker (quit date: 09/15/2015). The patient is positive for alcohol use. Review of Systems Constitutional: Negative for fever, chills, diaphoresis, activity change and appetite change. Gastrointestinal: Negative for nausea, vomiting, abdominal pain and diarrhea. Genitourinary: Negative for hematuria and enuresis. Musculoskeletal: Positive for back pain. Negative for neck pain. Skin: Negative for rash. Neurological: Negative for weakness, light-headedness and numbness. All other systems reviewed and are negative. Physical Exam First Vitals: BP: 143/88 mmHg Pulse: 109 Heart Rate: 109 Temp: 97.9 ??F (36.6 ??C) Resp: 18 Weight: 104.327 kg (230 lb) SpO2: 98 % Physical Exam Constitutional: She is oriented to person, place, and time. She appears well-developed. HENT: Head: Normocephalic and atraumatic. Right Ear: External ear normal. Mouth/Throat: Oropharynx is clear and moist. Eyes: Conjunctivae and EOM are normal. Pupils are equal, round, and reactive to light. Neck: Normal range of motion. Neck supple. No JVD present. Cardiovascular: Normal rate, regular rhythm and normal heart sounds. Pulmonary/Chest: Effort normal and breath sounds normal. Abdominal: Soft. Bowel sounds are normal. She exhibits no distension. There is no tenderness. There is no rebound. Musculoskeletal: Normal range of motion. Back: Lymphadenopathy: She has no cervical adenopathy. Neurological: She is alert and oriented to person, place, and time. She displays normal reflexes. Nocranial nerve deficit. She exhibits normal muscle tone. Coordination normal. Skin: Skin is warm and dry. Psychiatric: She has a normal mood and affect. Her behavior is normal. Judgment normal. Nursing note and vitals reviewed. Emergency Department Course Laboratory: CBC: WNL(WBC 10.2, HGB 12.4, PLT 301) BMP: Glucose 105 H, o/w WNL(Creatinine 0.94) UA: Leukocyte Esterase Small, Bacteria Few, o/w Negative Interventions: Dilaudid IV 0.5 mg Normal Saline IV bolus, total of 1.0 L IV Emergency Department Course: Nursing notes and vitals reviewed. I performed an exam of the patient as documented above. Blood was drawn from the patient. This was sent for laboratory testing, findings above. Urine sample was obtained and sent for laboratory analysis, findings above. Findings and plan explained to the Patient. Patient discharged home with instructions regarding supportive care, medications, and reasons to return. The importance of close follow-up was reviewed. The patient was prescribed: New Prescriptions OXYCODONE (ROXICODONE) 5 MG IMMEDIATE RELEASE TABLET Take 1 tablet (5 mg) by mouth every 4 hours asneeded for pain Impression & Plan Medical Decision Making: Lizzie He is a 50 year old female who presents with back pain and difficulty with her catheter. The patients back pain is classically musculoskeletal. The patient is post operative. I did consider PO though her heart rate and O2 saturation are normal. Pain is worse with motion and there is no change with respiration. Evaluation for pyelonephritis was preformed and lab tests and urinalysis is negative. I will recommend discharge with pain medication and follow up with the clinic on as scheduled. Diagnosis: ICD-10-CM 1. Low back pain without sciatica, unspecified back pain laterality M54.5 Aroldo Heck 11/13/2015 [facility] EM[facility] I, Aroldo Heck, am serving as a scribe at 7:59 PM on 11/13/2015 to document services personally performed by Kana Westbrook MD based on my observations and the provider's statements to me. Kana Westbrook MD 11/18/15 [id number] Jacqueline Roman RN - 11/13/2015 7:20 PM CDT Pt complains of bilateral back pain, left over right that is burning and has sharp shooting pains, pt is 1 week out of a mesh repair for her bladder. Is on abx at home, but uncertain of name. ABC intact documented in this encounter Plan of Treatment Not on filedocumented as of this encounter Procedures Procedure Name Priority Date/Time Associated Comments Diagnosis ROUTINE UA WITH STAT 11/13/2015 9:05 PM Result s for this MICROSCOPIC CDT procedure are i n the results section. CBC WITH PLATELETS & STAT 11/13/2015 8:11 PM R esults for this DIFFERENTIAL CDT procedure are i n the results section. BASIC METABOLIC PANEL STAT 11/13/2015 8:11 PM Results for this CDT procedure are i n the results section. documented in this encounter Results (ABNORMAL) UA with Microscopic (11/13/2015 9:05 PM CDT) Component Value Ref Test Analysis Performed At [facility] Range Method Time Signature Color Urine Light Yellow [facility] Appearance Urine Clear [facility] Glucose Urine Negative NEG [place] mg/dL [facility] Bilirubin Urine Negative NEG [facility] Ketones Urine Negative NEG [place] mg/dL [facility] Specific [place] 1.007 1.003 - [place] Urine 1.035 [facility] Blood Urine Negative NEG [facility] pH Urine 5.0 5.0 - [place] 7.0 pH [facility] Protein Albumin Negative NEG [place] Urine mg/dL [facility] Urobilinogen Normal 0.0 - [place] mg/dL 2.0 [facility] mg/[facility] Nitrite Urine Negative NEG [facility] Leukocyte Small (A) NEG [place] Esterase Urine [facility] Source Catheterized [facility] WBC Urine 2 0 - 2 [place] /HPF [facility] RBC Urine <1 0 - 2 [place] /HPF [facility] Bacteria Urine Few (A) NEG /HPF [facility] Specimen Anatomical Location Collection Method Collection Time Received Time (Source) / Laterality / Volume Urine specimen URINE SPECIMEN 11/13/2015 9:05 11/13/19 16 9:12 (specimen) COLLECTION, PM CDT PM CDT CATHETERIZED / Unknown Kana Westbrook MD LAB - URINE ORDERABLES Performing Organization Address City/[facility]/ZIP [facility] [facility] [address] [place], [place] [address] [facility] [address] [place], [place] [address], [facility] [phone] (ABNORMAL) Basic metabolic panel (11/13/2015 8:11 PM CDT) P athologist Signature Sodium 138 133 - 144 [place] mmol/L [facility] Potassium 4.2 3.4 - 5.3 [place] mmol/L [facility] Chloride 106 94 - 109 [place] mmol/L [facility] Carbon Dioxide 25 20 - 32 [place] mmol/L [facility] Anion Gap 7 3 - 14 [place] mmol/L [facility] Glucose 105 (H) 70 - 99 [place] mg/dL [facility] Urea Nitrogen 13 7 - 30 [place] mg/dL [facility] Creatinine 0.94 0.52 - [place] 1.04 mg/dL [facility] GFR Estimate 63 >60 [place] mL/min/1.[address] Comment: Non GFR Calc GFR Estimate If Black 77 >60 mL/min/1.7m2 F [facility] Comment: GFR Calc Calcium 9.4 8.5 - 10.1 mg/dL [facility] Specimen Anatomical Collection Method Collection Time Receive d Time (Source) Location / / Volume Laterality Blood specimen 11/13/2015 8:11 PM 016 8:46 (specimen) CDT PM CDT Kana Westbrook MD LAB - BLOOD ORDERABLES Performing Organization Address City/[facility]/ZIP Code Phon e Number [facility] [address], [place] [address] [facility] [address] [place], [place] [address], [facility] [phone] CBC with platelets differential (11/13/2015 8:11 PM CDT) Patholo gist Method Time Signature WBC 10.2 4.0 - [place] 11.0 [facility] 10e9/L [facility] RBC Count 4.07 3.8 - 5.2 [place] 10e12/L [facility] Hemoglobin 12.4 11.7 - [place] 15.7 g/dL [facility] Hematocrit 37.3 35.0 - [place] 47.0 % [facility] MCV 92 78 - 100 [place] fl [facility] MCH 30.5 26.5 - [place] 33.0 pg [facility] MCHC 33.2 31.5 - [place] 36.5 g/dL [facility] RDW 14.0 10.0 - [place] 15.0 % [facility] Platelet Count 301 150 - 450 [place] 10e9/L [facility] Diff Method Automated [facility] % Neutrophils 51.4 % [facility] % Lymphocytes 34.7 % [facility] % Monocytes 10.7 % [facility] % Eosinophils 2.4 % [facility] % Basophils 0.6 % [facility] % Immature 0.2 % [place] Granulocytes [facility] Nucleated RBCs 0 0 /100 [facility] Absolute 5.3 1.6 - 8.3 [place] Neutrophil 10e9/L [facility] Comment: CORRECTED ON 11/12 AT 2159: PRE VIOUSLY REPORTED 5.2 Absolute Lymphocytes 3.5 0.8 - 5.3 10e9/L [facility] Absolute Monocytes 1.1 0.0 - 1.3 10e9/L [facility] Absolute Eosinophils 0.2 0.0 - 0.7 10e9/L [facility] Absolute Basophils 0.1 0.0 - 0.2 10e9/L [facility] Abs Immature Granulocytes 0.0 0 - 0.4 10e9/L [facility] Absolute Nucleated RBC 0.0 [facility] Reactive Lymphs Present [facility] Platelet Estimate Normal [facility] Specimen Anatomical Collection Method Collection Time Receive d Time (Source) Location / / Volume Laterality Blood specimen 11/13/2015 8:11 PM 016 8:46 (specimen) CDT PM CDT Kana Westbrook MD LAB - BLOOD ORDERABLES Performing Organization Address City/State/ZIP Code Phon e Number [facility] [address] [place], [place] [address] [facility] [address] [place], [place] [address] [facility] [phone] documented in this encounter Visit Diagnoses Diagnosis Low back pain without sciatica, unspecif ied back pain laterality documented in this encounter Administered Medications Inactive Administered Medications - up to 3 most recent administrations Medication Order MAR Action Action Date Dose Rate Site 0.9% sodium chloride BOLUS New Bag 11/13/2015 8:39 PM CDT 1,000 mLs 1000 mL/hr Intravenous, 1,000 mL, ONCE, at 1,000 mL/hr, Administer over 1 Hours, On Thu11/13/15 at 2017, For 1 dose HYDROmorphone (PF) (DILAUDID) injection 0.5 Given 11/13/2015 8:39 PM CDT 0.5 mg mg 0.5 mg, Intravenous, ONCE PRN, moderate to severe pain, Starting on Thu11/13/15 at 2016, For 1 dose documented in this encounter Active and Recently Administered Medications Times are shown in CDT. Scheduled Medication Order 11/11/2015 11/12/2015 11/13/2015 0.9% sodium chloride BOLUS (COMPLETED) 2038 (New Bag - Provider: Vanessa Grijalva)2215 (Stopped - Provider: Vanessa Grijalva) Intravenous, 1,000 mL, ONCE, at 1,000 mL /hr, Administer over 1 Hours, On Thu11/13/15 at 2017, For 1 dose PRN Medication Order 11/11/2015 11/12/2015 11/13/2015 HYDROmorphone (PF) (DILAUDID) injection 0.5 mg (COMPLETED) 2038 (Given - Provider: Vanessa Grijalva) 0.5 mg, Intravenous, ONCE PRN, 1 dose, S tarting Thu11/13/15 at 2016, Until Thu11/13/15 at 2038, moderate to severe pain documented in this encounter Care Teams Asset Specialist Relationship Specialty Start Date End Date Harriet Haley MD PCP - General Physician [employer] 10/01/15 [facility] [address] [place] [address] documented as of this encounter
--- OUTSIDE RECORDS SUMMARY | 2022-06-21 19:22 | XMS_ITS | Encounter Summary ---
:1965 Author Organization [facility] Address [address] [place] [id number] Care Team Providers Name Role Phone Harriet Haley MD Primary Care Provider Reason for Referral - Closed Specialty Diagnoses / Procedures Referred By Contact Refer red To Contact Diagnoses Lumbar radicular pain Adriana Johnson APRN Procedures NEEDLE EMG SINGLE FIBER OUTDOOR ADVENTURE INSTRUCTOR [facility] [address] [place] [address] Referral ID Status Reason Start Date Expiration Date Visits Requ ested Visits Authorized [id number] Closed 10/10/2015 10/09/2016 1 1 PING PRESS OPERATOR Reason for Visit Reason Comments Neurologic Problem LBP with foot drop Encounter Details Date Type Department Care Team Description 10/10/2015 Office Visit [facility] Adriana Johnson Lumbar r adicular pain [facility] MELISSA Mercado CN P (Primary Dx) [facility] [address] [place] [id number] [phone] Social History Tobacco Use Types Packs/Day Years Used Date Smoking Tobacco: Former Cigarettes Quit : 09/15/2015 Alcohol Use Standard Drinks/Week Comments Yes 0 (1 standard drink = 0.6 oz pure alcoho l) SMALL Sex Assigned at Date Recorded Not on file documented as of this encounter Last Filed Vital Signs Vital Sign Reading Time Taken Comments Blood Pressure 118/80 10/10/2015 2:55 PM STEEPING PRESS OPERATOR Pulse 99 10/10/2015 2:55 PM STEEPING PRESS OPERATOR Temperature 36.9 ??C (98.5 ??F) 10/10/2015 2:55 PM STEEPING PRESS OPERATOR Respiratory Rate - - Oxygen Saturation 95% 10/10/2015 2:55 PM STEEPING PRESS OPERATOR Inhaled Oxygen Concentration - - Weight 106.6 kg (235 lb) 10/10/2015 2:55 PM STEEPING PRESS OPERATOR Height 170.2 cm (5' 7) 10/10/2015 2:55 PM STEEPING PRESS OPERATOR Body Mass Index 36.81 10/10/2015 2:55 PM STEEPING PRESS OPERATOR documented in this encounter Patient Instructions Patient InstructionsSchAdriana rievra APRN CNP - 10/10/2015 2:48 PM STEEPING PRESS OPERATOR 1. Schedule EMG with Dr. Gil 2. Contact clinic if weakness progresses PING PRESS OPERATOR documented in this encounter Progress Notes Adriana Johnson APRN CNP - 10/10/2015 2:[address] Pee Hickey [facility] Neurosurgery Clinic Visit The following is a printer floor covering assistant of a shared visit between Dr. Pee Hickey and myself, Adriana Mcclure [facility] CC: lumbar radicular pain on the left Primary care Provider: Harriet Haley Reason For Visit: I was asked by Dr. Andrea Carvalho to consult on the patient for lumbar radicula pain and left leg weakness. HPI: Lizzie He is a 49 year old female with lumbar radicular pain. She states that she wasadmitted for this pain about 2 weeks ago. Since then she has had 2 injections with about 50% pain relief. She states that she no longer needs a cane to walk at this time. She denies any weakness to herarms at this time. She states that she is having pain to her low back and left leg. She feels that her left leg is weak at this time. She states that she did have cervical spine surgery in 2007. She states that pain radiates down her legs all the way to the toe. She denies any changes in bowel or bladder function. Pain at its worst 10 Pain right now: 5 Past Medical History Diagnosis Date ??? Migraine, unspecified, without mention of intractable migraine without mention of status migrainosus ??? Herpes zoster without mention of complication Past Medical History reviewed with patient during visit. Past Surgical History Procedure Laterality Date ??? C nonspecific procedure C SECTION X2 Past Surgical History reviewed with patient during visit. Current Outpatient Prescriptions Medication ??? oxyCODONE (ROXICODONE) 5 MG immediate release tablet ??? acetaminophen (TYLENOL) 500 MG tablet ??? ibuprofen (ADVIL,MOTRIN) 600 MG tablet ??? polyethylene glycol (MIRALAX) powder ??? order for DME ??? Pregabalin (LYRICA PO) ??? Varenicline Tartrate (CHANTIX PO) ??? Verapamil HCl (CALAN SR PO) ??? DULoxetine HCl (CYMBALTA PO) ??? LEVOTHYROXINE SODIUM PO No current facility-administered medications for this visit. Allergies Allergen Reactions ??? No Known Allergies History Social History ??? Marital Status: Spouse Name: N/A Number of Children: N/A ??? Years of Education: N/A Social History Main Topics ??? Smoking status: Current Every Day Smoker ??? Smokeless tobacco: Not on file Comment: LESS THAN 1 PPD ??? Alcohol Use: Yes Comment: SMALL ??? Drug Use: Not on file ??? Sexual Activity: Not on file Other Topics Concern ??? Not on file Social History Narrative Family History Problem Relation Age of Onset ??? Diabetes Father HYPERTENSION ALSO ??? Hypertension Mother THYROID ALSO Review Of Systems Skin: negative Eyes: negative Ears/Nose/Throat: negative Respiratory: No shortness of breath, dyspnea on exertion, cough, or hemoptysis Cardiovascular: negative Gastrointestinal: negative Genitourinary: negative Musculoskeletal: back pain Neurologic: left leg weakness Psychiatric: negative Hematologic/Lymphatic/Immunologic: negative Endocrine: negative ROS: 10 point ROS neg other than the symptoms noted above in the HPI. Vital Signs: There were no vitals taken for this visit. Examination: Constitutional: Alert, well nourished, NAD. HEENT: Normocephalic, atraumatic. Pulm: Without shortness of breath or audible adventitious respiratory sounds. CV: No pitting edema of BLE. Brisk capillary refill, CMS intact. Neurological: Awake Alert Oriented x 3 Speech clear Cranial nerves II - XII intact PERRL EOMI Face symmetric Motor exam Hip Flexor: Right: 5/5 Left: 5/5 Hip Adductor: Right: 5/5 Left: 5/5 Hip Abductor: Right: 5/5 Left: 5/5 Gastroc Soleus: Right: 5/5 Left: 5/5 Tib/Ant: Right: 5/5 Left: 5/5 EHL: Right: 5/5 Left: 4/5 Left dorsi flexion 4.5, left plantar flexion 5/5 Negative peroneal nerve pain with palpation Sensation normal to bilateral upper and lower extremities Gait: Able to stand from a seated position. Normal non-antalgic, non-myelopathic gait. Lumbar examination reveals mild tenderness of the spine or paraspinous muscles. Restricted and painful ROM in all planes. Hip height is symmetrical. Negative SI joint, sciatic notch or greater trochanteric tenderness to palpation bilaterally. Straight leg raise is is positive to low back pain on the left. Imaging: Lumbar MRI IMPRESSION: At L3-L4 there is a small left central disc extrusion resulting in mild central canal stenosis. Assessment/Plan: Lizzie He is a 49 year old female with lumbar radicular pain on the left. She was referredby Dr. Andrea Carvalho. She states that she has had 2 injections and feels that overall her pain is 50% better and she no longer needs to use a cane. She is having some weakness with dorsi flexion. Her lumbar MRI was reviewed and only shows a small disc extrusion at L3-4. We explained that she is 50% betteroverall and her current symptoms do not correlate with her MRI. At this time we will have her undergo an EMG. If pain worsens or progresses we would want to have her undergo a repeat MRI. She agreed with the POC. Patient Instructions 1. Schedule EMG with Dr. Gil 2. Contact clinic if weakness progresses Patient comes in today for findings of lumbar radicular pain. Today I spent 45 minutes with him of which 30 was spent reviewing conservative management, MRI results and POC. Adriana Johnson [facility] [address] [address] Pager [phone] PING PRESS OPERATOR documented in this encounter Nursing Notes Tanja Chandra RN - 10/10/2015 2:58 PM CST . Lizzie He is a 49 year old female who presents for: Chief Complaint Patient presents with ??? Neurologic Problem LBP with foot drop Initial Vitals: BP 118/80 mmHg Pulse 99 Temp(Src) 98.5 ??F (36.9 ??C) (Oral) Ht 5' 8 (1.727 m) Wt 225 lb (102.059 kg) BMI 34.22 kg/m2 SpO2 95% Estimated body mass index is 34.22 kg/(m^2) as calculated from the following: Height as of this encounter: 5' 8 (1.727 m). Weight as of this encounter: 225 lb (102.059 kg).. Body surface area is 2.21 meters squared. BP completed using cuff size: large Moderate Pain (5) Do you feel safe in your environment? Yes Do you need any refills today? No Nursing Comments: Low back pain with left foot drop. 5 minutes nursing intake time Tanja Chandra RN Discharge plan: 1. Schedule EMG with Dr. Gil 2. Contact clinic if weakness progresses 2 minutes nursing discharge time Tanja Chandra RN PING PRESS OPERATOR documented in this encounter Plan of Treatment Not on filedocumented as of this encounter Procedures Procedure Name Priority Date/Time Associated Diagnosis Comme nts HC NEEDLE EMG SINGLE Routine 10/10/2015 2:47 PM STEEPING PRESS OPERATOR Lumbar rad icular pain FIBER documented in this encounter Visit Diagnoses Diagnosis Lumbar radicular pain - Primary Thoracic or lumbosacral neuritis or radi culitis, unspecified documented in this encounter Care Teams Belt Changer Relationship Specialty Start Date End Date Harriet Haley MD PCP - General Physician Activity Coordinator 10/01/15 [facility] [address] [address] documented as of this encounter
--- OUTSIDE RECORDS SUMMARY | 2022-06-21 19:22 | XMS_ITS | Encounter Summary ---
:1965 Author Organization [facility] Address [address] [place] [address] Care Team Providers Name Role Phone Harriet Haley MD Primary Care Provider [phone] Encounter Details Date Type Department Care Team Description 02/20/2016 Hospital Encounter [facility] Pako Cid P ost-operative [facility] [place] [id number] [place] [address] Social History Tobacco Use Types Packs/Day Years Used Date Smoking Tobacco: Former Cigarettes Quit : 09/15/2015 Alcohol Use Standard Drinks/Week Comments Yes 0 (1 standard drink = 0.6 oz pure alcoho l) SMALL Sex Assigned at Date Recorded Not on file documented as of this encounter Last Filed Vital Signs Vital Sign Reading Time Taken Comments Blood Pressure - - Pulse - - Temperature - - Respiratory Rate - - Oxygen Saturation - - Inhaled Oxygen Concentration - - Weight 99.8 kg (220 lb) 02/15/2016 5:53 PM CDT Height 172.7 cm (5' 8) 02/15/2016 5:53 PM CDT Body Mass Index 33.45 02/15/2016 5:53 PM CDT documented in this encounter Medications at Time [...] times daily documented as of this encounter Miscellaneous Notes Op Note - Pako Cid MD - 02/20/2016 10:50 AM CDT Operative note Date: 02/20/2016 Site: [facility] Surgeon: Pako Cid M.D. Assist: Chichi Youngblood D.O. Anesthesia: Gen. 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 The area has healed and has been evaluated in the office with cystoscopy. She is now presenting for a repair of the stress incontinence with a repeat sling. The procedure, risks, and complications have been reviewed in detail. Procedure: The patient was brought to the OR where she was placed on the operating table and given a general anesthetic. She was then positioned in a modified lithotomy position. The lower abdomen and vaginal area were prepped and draped in a sterile fashion. A pause was performed in order to correctly identify the patient. Once accomplished, a [place] retractor was used to gain access to the anterior vaginalwall. A cystoscopy was performed to confirm that the urethral anatomy was normal. Some irregularities in healing from the previous repair was noted but there was no evidence of a diverticulum or fistula. Next, the anterior vaginal wall at the level of the mid urethra was infiltrated with quarter percen t Marcaine with with epinephrine. An incision at the mid urethra slightly more proximal to the usualposition due to urethral scarring distally was made. An island of vaginal skin was left intact at the level of the mid urethra in order to avoid further dissection in this exact area. The size of the island was approximately 1 cm by half centimeter. The lateral edges of the incision were developed sharply with the Metzenbaum scissors up to the level of the ascending pubic ramus but not perforating the endopelvic fascia on both sides. A small additional development of the skin at the base of the incision was made in order to allow the sling to rest without puckering the skin once it was finally posit ioned. A Vasquez catheter had been placed into the bladder. The skin above the symphysis pubis was anesthetized with quarter percent Marcaine at each of the 2 previous puncture sites that were used for similar procedure. The puncture sites were opened again with a stab of the 15 blade on each side, and the trochars were then passed from the suprapubic to vaginal position bilaterally. At this point, careful inspection of the bladder and urethra was performed ensuring that there was no evidence of perforation. Once noted, the trochars were removed. The sling was loaded onto the vaginal ends of the needles and the needle were then transferred suprapubically allowing the sling to rest against the mid urethra while being spaced with a heavy scissors. The mechanism for removing the plastic sleeves was caught and then the sleeves were removed while balancing the heavy scissors in place maintaining an adequate tension between the base of the sling and the urethra. Some further attention was given to proper adjustment of the sling. Then the patient was creded to see if there was leakage and minimal or none was noted. The vaginal incision was closed with running 2-0 Vicryl. The island of vaginal skin wassituated behind the sling and was left in place. The vagina was irrigated of any remaining blood andno active bleeding was noted. The edges of the sling were trimmed at the skin level above the symphysis pubis and then the skin was pulled away with a small pickups and closed with Dermabond. All counts were correct. Estimated blood loss for this procedure was less than 50 mL. The patient was awakenedand transferred to the recovery room in stable condition. Jose Alfredo Cid M.D. documented in this encounter Plan of Treatment Not on filedocumented as of this encounter Procedures Procedure Name Priority Date/Time Associated Diagnosis Comme nts EKG CARDIAC - HIM SCAN 02/20/2016 documented in this encounter Results EKG CARDIAC - HIM SCAN (02/20/2016) Specimen (Source) Anatomical Location Collection Method / Collectio n Time Received Time / Laterality Volume Narrative This result has an attachment that is no t available. Historical Provider ECG ORDERABLES documented in this encounter Visit Diagnoses Diagnosis Post-operative state Other postprocedural status documented in this encounter Care Teams Kennel Operator Relationship Specialty Start Date End Date Harriet Haley MD PCP - General Physician Hand Rigger 10/01/[address] [address] documented as of this encounter
--- OUTSIDE RECORDS SUMMARY | 2022-06-21 19:22 | XMS_ITS | Encounter Summary ---
:1965 Author Organization [facility] Address [address] [facility] [place] [address] Care Team Providers Name Role Phone Harriet Haley MD Primary Care Provider [phone] Reason for Visit [facility] (Routine) - Closed Specialty Diagnoses / Procedures Referred By Contact Refer red To Contact Mumtaz Rushing MD [facility] - [address] [place], [place] [address] [address] [place] [address] Phone: Fax: Referral ID Status Reason Start Date Expiration Date Visits Requ ested Visits Authorized [facility]/HP/LBP Closed 03/26/2016 08/09/2016 18 16 Encounter Details Date Type Department Care Team Description 04/10/2016 Therapy Visit [facility] Lizzie Patino Chro kathryn bilateral Rehabilitation Services PT low back pain with [place] [address] [facility] left-sided sciatica [address] [facility]. (Primary Dx) [place] [id number] Social History Tobacco Use Types Packs/Day Years Used Date Smoking Tobacco: Former Cigarettes Quit : 09/15/2015 Alcohol Use Standard Drinks/Week Comments Yes 0 (1 standard drink = 0.6 oz pure alcoho l) SMALL Sex Assigned at Date Recorded Not on file documented as of this encounter Progress Notes Lizzie Patino PT - 05/12/2016 2:59 PM CDT Subjective: HPI Oswestry Score: 26.67 % Objective: System Physical Exam General ROS Assessment/Plan: DISCHARGE REPORT Progress reporting period is from 03/26/2016 to 04/10/2016. SUBJECTIVE Subjective: Patient reports feeling much better after starting pressup exercises, with mild, intermittent leg symptoms and more centralized low back pain. Patient states that it has been difficult to fit in pressup exercises at work. Current Pain level: 3/10 Initial Pain level: 10/10 Changes in function: Yes, see goal flow sheet for change in function Adverse reactions: None OBJECTIVE Objective: Able to do 3/4 pressup; KATIA pressups more comfortable at first, then able to do pressups after with greater ease. Added standing extension exs for work. ASSESSMENT/PLAN STG/LTGs have been met or progress has been made towards goals: Yes (See Goal flow sheet completed today.) Assessment of Progress: The patient's condition is improving. The patient's condition has potential to improve. Self Management Plans: Patient is independent in a home treatment program. Patient is independent in self management of symptoms. Lizzie continues to require the following intervention to meet STG and LTG's: PT intervention is no longer required to meet STG/LTG. Recommendations: This patient is ready to be discharged from therapy and continue their home treatment program. Please refer to the daily flowsheet for treatment today, total treatment time and time spent performing 1:1 timed codes. documented in this encounter Miscellaneous Notes Addendum Note - Lizzie Patino PT - 05/12/2016 3:01 PM CDT Addended by: LIZZIE PATINO on: 05/12/2016 03:01 PM Modules accepted: Orders documented in this encounter Plan of Treatment Not on filedocumented as of this encounter Procedures Procedure Name Priority Date/Time Associated Diagnosis Comme nts [facility] NEUROMUSCULAR Routine 04/10/2016 3:32 PM Chronic bilateral low RE-EDUCATION CDT back pain with left-sided sciatica [facility] THERAPEUTIC EXERCISES Routine 04/10/2016 3:32 PM Chronic b ilateral low CDT back pain with left-sided sciatica documented in this encounter Visit Diagnoses Diagnosis Chronic bilateral low back pain with lef t-sided sciatica - Primary documented in this encounter Care Teams Fire Control Technician G Relationship Specialty Start Date End Date Harriet Haley MD PCP - General Physician Flour Mixer Helper 10/01/15 [facility] [address] [place] [address] documented as of this encounter
--- OUTSIDE RECORDS SUMMARY | 2022-06-21 19:22 | XMS_ITS | Encounter Summary ---
:1965 Author Organization [facility] Address [address] [place] [id number] Care Team Providers Name Role Phone Harriet Haley MD Primary Care Provider [phone] Reason for Visit Reason Comments Musculoskeletal Problem Encounter Details Date Type Department Care Team Description 05/09/2016 Office Visit [facility] [place], [place] foot pain Sports Medicine DO (Primary Dx) Clinic [facility] [id number] [place] [address] [facility] [address] [address] [place] [address] [facility] [address] [place], [place] [address] (Wo rk) Social History Tobacco Use Types Packs/Day Years Used Date Smoking Tobacco: Former Cigarettes Quit : 09/15/2015 Alcohol Use Standard Drinks/Week Comments Yes 0 (1 standard drink = 0.6 oz pure alcoho l) SMALL Sex Assigned at Date Recorded Not on file documented as of this encounter Last Filed Vital Signs Vital Sign Reading Time Taken Comments Blood Pressure 139/75 05/09/2016 11:21 AM CDT Pulse 98 05/09/2016 11:21 AM CDT Temperature - - Respiratory Rate - - Oxygen Saturation - - Inhaled Oxygen Concentration - - Weight 104.3 kg (230 lb) 05/09/2016 11:21 AM CDT Height 170.2 cm (5' 7) 05/09/2016 11:21 AM CDT Body Mass Index 36.02 05/09/2016 11:21 AM CDT documented in this encounter Patient Instructions Patient InstructionsDuJossy singh DO - 05/09/2016 12:04 PM CDT Thank you for allowing us to participate in your care today. Please find below your visit diagnosis and the plan going forward. 1. Left foot pain Activity modification as discussed - keep wearing the boot MRI of your left foot has been ordered. Schedule with [facility] ([phone]). Once you know the date of your MRI, please call my office and schedule a follow- up visit for 2 days after that. Follow up 2 days after your MRI in the office to discuss the results. Call direct clinic number [[phone]] at any time with questions or concerns. Jossy Kilgore DO CAQSM [facility] documented in this encounter Progress Notes Jossy Kilgore DO - 05/09/2016 11:22 AM CDT [facility] Clinic Visit May 09, 2016 PCP: Harriet Haley Subjective: Lizzie He is a/an 50 year old female who is seen in consultation at the request of Dr. Gates for evaluation of pain at the top aspect of the left foot. She has pain, swelling and mild bruising at the top front aspect fot he foot. She reports her second toe is numb. The patient is seen by themselves. Lizzie reports symptoms began 1.5 week(s) ago without an acute precipitating event. She was seen [facility] Urgent care on 04/30/2016. Xrays were taken and she reports that she discussed the xrays with the doctor there and he said that she had a stress fracture on the inside and outside aspect of her secondtoe and the outside aspect of her third toe. She was told to continue to wear her CAM boot from her previous stress fracture diagnosis. She asked her PCP about it and was referred back to [facility]. However,she stopped in at the [facility] instead on 05/08 and new films were taken and she was referred here. Initial treatment has consisted of ice, Tylenol, ibuprofen, other medications: Hy drocodone/Acetaminophen (Vicodin/Mountain) and previous imaging (xray see below) with minimal relief. They currently describe the pain as constant, aching and sharp in nature without radiation. They indicate has/had delayed swelling. Pain is 10/10 in maximal severity and 5/10 currently. Symptoms are generally worse with unknown and better with rest. The patient reports a previous injury to this area: YES - Date: 01/2016. Her PCP (Emy) had diagnosed her with a stress fracture of the same second digit.Xrays were taken and she was placed in a tall CAM boot x 4-5 weeks. Patient's past medical, surgical, social, and family histories were reviewed today and no changes are noted. Review of Systems: 10 point ROS is negative other than symptoms noted above in HPI, Past Medical History or as stated below Constitutional: NEGATIVE for fever, chills, change in weight Skin: NEGATIVE for worrisome rashes, moles or lesions GI/: NEGATIVE for bowel or bladder changes Neuro: NEGATIVE for weakness, dizziness or paresthesias Objective: BP 139/75 mmHg Pulse 98 Ht 5' 7 (1.702 m) Wt 230 lb (104.327 kg) BMI 36.01 kg/m2 General: healthy, alert and in no distress HEENT: no scleral icterus or conjunctival erythema Skin: no suspicious lesions or rash. No jaundice. CV: moderate pedal edema, greatest over distal foot/metatarsal heads Resp: normal respiratory effort without conversational dyspnea Psych: normal mood and affect Gait: using a CAM walker Neuro: Motor strength as noted below MSK: LEFT FOOT Inspection: Swelling over distal foot / metatarsal heads Palpation: Exquistely Tender about the distal 2-4 metatarsal. Non-tender over lisfranc, medial/lateral ankle. Range of Motion: Limited ROM of toes secondary to pain and swelling. Full ROM of ankle Strength: Ankle strength - grossly intact Independent visualization of the below image: Recent Results (from the past 24 hour(s)) XR Foot Left G/E 3 Views Narrative LEFT FOOT 3 VIEWS 05/08/2016 8:10 PM HISTORY: Left leg pain. COMPARISON: None. Impression IMPRESSION: No evidence for acute fracture or dislocation in the left foot. Small left plantar calcaneal spur. MD EMY SCHMIDT 01/16/16 Indication: Acute foot pain. Findings: There is soft tissue swelling. There is no acute fracture or dislocation. There is a prominent plantar spur. Impression: Soft tissue swelling. No acute fracture. Dictated by Penny Wilson MD @ Jan 16 2016 12:42PM ASSESSMENT & PLAN ICD-10-CM 1. Left foot pain M79.672 MR Foot Left w/o Contrast order for DME traMADol (ULTRAM) 50 MG tablet Discussed her clinical course to date. Recommend continue CAM walker but non-weight bearing. Roll-about coordinated MRI ordered to access for subtle fracture/stress reaction. Rx for Tramadol to use at night - no alcohol/drinking while taking Ice and Tylenol for pain otherwise Follow up 2 days after MRI to discuss results in the office. Call direct clinic number [phone] at any time with questions or concerns. Instructed to call the office if the condition evolves or worsens. Patient's conditions were thoroughly discussed during today's visit with greater than 50% of the visit spent counseling the patient with total time spent [id number] with the patient being 25 minutes. Jossy Kilgore DO [facility] documented in this encounter Nursing Notes Carlos Roth - 05/09/2016 11:21 AM CDT Chief Complaint Patient presents with ??? Musculoskeletal Problem Initial BP 139/75 mmHg Pulse 98 Ht 5' 7 (1.702 m) Wt 230 lb (104.327 kg) BMI 36.01 kg/m2 Estimated body mass index is 36.01 kg/(m^2) as calculated from the following: Height as of this encounter: 5' 7 (1.702 m). Weight as of this encounter: 230 lb (104.327 kg). BP completed using cuff size: large Carlos Roth ATC documented in this encounter Plan of Treatment Not on filedocumented as of this encounter Results MR Foot Left w/o Contrast (05/16/2016 4:19 PM CDT) Anatomical Region Laterality Modality Left Foot, SUBRAD MR MSK, UMP MR MSK Mag netic Resonance Specimen (Source) Anatomical Location Collection Method / Collectio n Time Received Time / Laterality Volume Impressions 05/16/2016 4:29 PM CDT IMPRESSION: 1. Moderate marrow edema in the distal t hird of the third metatarsal. Although a fracture line is not seen, th is is suspicious for a stress reaction or occult stress fracture. 2. Degenerative changes elsewhere as mauricio cribed above. YEMI COATES MD Narrative 05/16/2016 4:29 PM CDT MRI LEFT FOOT WITHOUT CONTRAST ?? 05/16/2016 4:19 PM HISTORY: Left foot pain and swelling kavya ng the second, third, and fourth metatarsals. Evaluate for stress fracture. COMPARISON: Radiographs on 05/08/2016. TECHNIQUE: Sagittal, coronal, and transv erse T1 and STIR images were obtained through the left foot. FINDINGS: There is moderately prominent marrow edema within the distal third of the third metatarsal. No distin ct fracture line is demonstrated. There is a much smaller ar ea of mild marrow edema in the second metatarsal head near the joint rogers rface. There are mild degenerative changes throughout the midf oot including joint space loss and subchondral cyst formation and marro w edema on both sides of several joint spaces. No other abnormal marrow signal intensity is identified. The remaining joint spaces a re well-preserved. There is moderate edema in the subcutane ous tissues over the dorsum of the foot. There is additional edema in t he deep soft tissues surrounding the distal third metatarsal. No other soft tissue normality is noted. The visualized plant ar fascia is normal. No tendon or ligament pathology is seen. Procedure Note Yemi Coates MD - 05/16/2016Fo rmatting of this note might be different from the original. MRI LEFT FOOT WITHOUT CONTRAST 05/16/2016 4:19 PM HISTORY: Left foot pain and swelling kavya ng the second, third, and fourth metatarsals. Evaluate for stress fracture. COMPARISON: Radiographs on 05/08/2016. TECHNIQUE: Sagittal, coronal, and transv erse T1 and STIR images were obtained through the left foot. FINDINGS: There is moderately prominent marrow edema within the distal third of the third metatarsal. No distin ct fracture line is demonstrated. There is a much smaller ar ea of mild marrow edema in the second metatarsal head near the joint rogers rface. There are mild degenerative changes throughout the midf oot including joint space loss and subchondral cyst formation and marro w edema on both sides of several joint spaces. No other abnormal marrow signal intensity is identified. The remaining joint spaces a re well-preserved. There is moderate edema in the subcutane ous tissues over the dorsum of the foot. There is additional edema in t he deep soft tissues surrounding the distal third metatarsal. No other soft tissue normality is noted. The visualized plant ar fascia is normal. No tendon or ligament pathology is seen. IMPRESSION: 1. Moderate marrow edema in the distal t hird of the third metatarsal. Although a fracture line is not seen, th is is suspicious for a stress reaction or occult stress fracture. 2. Degenerative changes elsewhere as mauricio cribed above. YEMI COATES MD Jossy Kilgore DO [facility] [place]ABLES documented in this encounter Visit Diagnoses Diagnosis Left foot pain - Primary Pain in limb Left foot pain Pain in limb documented in this encounter Care Teams Newspaper Peddler Relationship Specialty Start Date End Date Harriet Haley MD PCP - General Physician Daycare Assistant 10/01/15 [facility] [address] [facility] [place] [address] documented as of this encounter
--- OUTSIDE RECORDS SUMMARY | 2022-06-21 19:22 | XMS_ITS | Encounter Summary ---
:1965 Author Organization [facility] Address [address] [place] [address] Care Team Providers Name Role Phone Harriet Haley MD Primary Care Provider [phone] Reason for Referral Consultation - Closed Specialty Diagnoses / Procedures Referred By Contact Refer red To Contact Neurosurgery Diagnoses Left lumbar radiculopathy Lumbar disc herniation Central spinal stenosis Lumbar degenerative disc disease Andrea Carvalho DO [facility] [address] [id number] (OP) [place] [address] [place] [address] Phone: Fax: Referral ID Status Reason Start Date Expiration Date Visits Requ ested Visits Authorized [id number] Closed 10/10/2015 10/09/2016 1 1 [facility] Reason for Visit Reason Comments Musculoskeletal Problem BACK PAIN Encounter Details Date Type Department Care Team Description 10/10/2015 Office Visit [facility] Andrea Bonner Left lumba r radiculopathy (Primary Dx); Sports Medicine DO Asael Lumbar disc herniation; Clinic [facility] [address] Central spinal stenosis; [address] [place], [place] Lumbar degenerative disc dis ease [phone] [place] [address] Social History Tobacco Use Types Packs/Day Years Used Date Smoking Tobacco: Former Cigarettes Quit : 09/15/2015 Alcohol Use Standard Drinks/Week Comments Yes 0 (1 standard drink = 0.6 oz pure alcoho l) SMALL Sex Assigned at Date Recorded Not on file documented as of this encounter Last Filed Vital Signs Vital Sign Reading Time Taken Comments Blood Pressure 126/80 10/10/2015 1:57 PM [facility] Pulse - - Temperature - - Respiratory Rate - - Oxygen Saturation - - Inhaled Oxygen Concentration - - Weight 106.6 kg (235 lb) 10/10/2015 1:57 PM [facility] Height 170.2 cm (5' 7) 10/10/2015 1:57 PM [facility] [employer] [facility] Body Mass Index 36.81 10/10/2015 1:57 PM [facility] [employer] [facility] documented in this encounter Patient Instructions Patient InstructionsJeanneJason samayoa - 10/10/2015 2:29 PM CST We addressed the following today: 1. Left lumbar radiculopathy 2. Lumbar disc herniation 3. Lumbar degenerative disc disease 4. Lumbar spinal stenosis Activity modification as discussed Over the counter medication: Acetaminophen (Tylenol) maximum of 3000 mg per day Ibuprofen (Advil) maximum of 800 mg four times a day with food Prescription Medication as directed: Lyrica as discussed Other specific instructions: Referral to spine surgery (Dr. Hickey) for consideration of surgical intervention/further medical care Hold on formal physical therapy referral at this time as discussed Follow-up as needed for further evaluation/medical care. Instructed to contact our office should thecondition evolve or worsen, or should any new/progressive neurologic symptoms develop. (sooner if needed; call direct clinic number [[phone]] at any time with questions or concerns) [facility] documented in this encounter Progress Notes Andrea Carvalho DO - 10/10/2015 1:56 PM CST [facility] Visit s Oct 10, 2015 Subjective: Lizzie He is a 49 year old female who is seen as self referral for evaluation of left low back pain with radiation. Symptoms began several years ago. Reports insidious onset without acute precipitating event. Reportsaching and sharp left low back/central low back pain with radiation present (left anterior thigh/leg). Pain is 9/10 in maximal severity and 5/10 currently. Symptoms are generally worse with prolonged si tting/standing activities and with laying down and better with nothing in particular. Other treatment has consisted of Tylenol, Ibuprofen, bilateral L3-4 transforaminal epidural corticosteroid injections, and Lyrica with moderate relief. Associated symptoms include denies any bowel/bladder dysfunctionor saddle anesthesia. Notes numbness/tingling of the left 2nd/3rd toes of the left foot. Denies any weakness of the lower extremities. Denies any previous low back injuries/surgeries. Patient's past medical, surgical, social, and family histories are reviewed today. Significant medical history as noted above Past Medical History Diagnosis Date ??? Migraine, unspecified, without mention of intractable migraine without mention of status migrainosus ??? Herpes zoster without mention of complication Review of Systems: Constitutional: NEGATIVE for fever, chills, or change in weight Skin: NEGATIVE for worrisome rashes, moles, or lesions Neuro: NEGATIVE for weakness of the lower extremities MSK: see HPI Objective: BP 126/80 mmHg Ht 5' 7 (1.702 m) Wt 235 lb (106.595 kg) BMI 36.80 kg/m2 General: healthy, alert, obese, and in mild distress Skin: no suspicious lesions or rashes Psych: mentation appears normal and affect normal/bright Neuro: sensory examination of the lower extremities is within normal limits. Motor strength as notedbelow MSK: THORACIC/LUMBAR SPINE Inspection: No redness, swelling, overlying skin change, or gross deformity/asymmetry Palpation: Tender about the lumbar spinous processes and lower lumbar facet joints No tenderness over the paralumbar musculature, SI joints (bilateral), or sciatic notches (bilateral) Range of Motion: Lumbar flexion limited by pain Lumbar extension limited by pain Strength: Able to heel walk, able to toe walk, quadriceps 5/5, and hamstrings 5/5 Dorsiflexion 4/5 (left) Plantarflexion 5/5 Great toe extension 4+/5 (left) Special Tests: Positive: Straight leg raise (left) Negative: Straight leg raise (right), SI joint compression testing (bilateral), JORDANA (bilateral), and femoral nerve stretch test (left) Imaging: No x-rays indicated during today's visit Previous films were reviewed today and results were discussed with the patient MRI of the Lumbar Spine without Contrast - 10/01/2015 IMPRESSION: 1. L3-L4 - small left central disc extrusion resulting in mild central canal stenosis. ASSESSMENT: 1. Left lumbar radiculopathy 2. Lumbar disc herniation 3. Lumbar central stenosis PLAN: 1. Referral to spine surgery (Dr. Hickey) for consideration of surgical intervention/further medicalcare. 2. Acetaminophen/Ibuprofen as needed for improved pain control. 3. Activity modification as discussed, including limitation of activities that cause pain/discomfort. 4. Hold on formal physical therapy referral at this time as discussed for treatment purposes. 5. Continue with Lyrica as prescribed for improvement of pain/discomfort. 6. Follow-up as needed for further evaluation/medical care. Consider left L3-4 transforaminal epidural corticosteroid injection, etc as deemed appropriate after spine surgery consultation. Instructed to contact our office should the condition evolve or worsen, or should any new/progressive neurologic symptoms develop. Patient's conditions were thoroughly discussed during today's visit with greater than 50% of the visit spent counseling the patient with total time spent [id number] with the patient being 20 minutes. Andrea Carvalho DO, [facility] Disclaimer: This note consists of symbols derived from keyboarding, dictation and/or voice recognition software. As a result, there may be errors in the script that have gone undetected. Please consider this when interpreting information found in this chart. This document serves as a record of the services and decisions personally performed and made by Josseline Carvalho DO. It was created on his behalf by Jason Gil, a trained medical billing instructor. The creationof this record is based on the provider's personal observations and the statements of the patient. This document has been checked and approved by the attending provider. Jason Gil 2:22 PM October 10, 2015 [facility] documented in this encounter Nursing Notes Waldo Sinclair ATC - 10/10/2015 1:57 PM CST Chief Complaint Patient presents with ??? Musculoskeletal Problem BACK PAIN Initial BP 126/80 mmHg Ht 5' 7 (1.702 m) Wt 235 lb (106.595 kg) BMI 36.80 kg/m2 Estimated body mass index is 36.8 kg/(m^2) as calculated from the following: Height as of this encounter: 5' 7 (1.702 m). Weight as of this encounter: 235 lb (106.595 kg). BP completed using cuff size: chrissy Sinclair ATC/R [facility] documented in this encounter Plan of Treatment Pending Results Name Type Priority Associated Diagnoses Date/Ti wi ORTHO FLOOR TRADER REFERRAL Referral Routine Left jorge mbar radiculopathy 10/11/2015 Lumbar disc enrrique iation Central spinal s tenosis Lumbar degenerative disc disease documented as of this encounter Visit Diagnoses Diagnosis Left lumbar radiculopathy - Primary Thoracic or lumbosacral neuritis or radi culitis, unspecified Lumbar disc herniation Displacement of lumbar intervertebral di sc without myelopathy Central spinal stenosis Spinal stenosis, unspecified region othe r than cervical Lumbar degenerative disc disease Degeneration of lumbar or lumbosacral in tervertebral disc documented in this encounter Care Teams Briquetting Machine Operator Relationship Specialty Start Date End Date Harriet Haley MD PCP - General Physician Client Development Manager 10/01/15 [facility] [address] [place] [id number] documented as of this encounter
--- OUTSIDE RECORDS SUMMARY | 2022-06-21 19:22 | XMS_ITS | Encounter Summary ---
:1965 Author Organization [place] Address [facility] [place] [address] Care Team Providers Name Role Phone Harriet Haley MD Primary Care Provider [phone] Reason for Visit JENARO Physical Therapy (Routine) - Closed Specialty Diagnoses / Procedures Referred By Contact Refer red To Contact Mumtaz Rushing MD [facility] & [facility] PAIN [facility] Physical Therapy - [address] [place], [place] [address] [address] [place] [address] Phone: Fax: Referral ID Status Reason Start Date Expiration Date Visits Requ ested Visits Authorized JENARO/HP/LBP Closed 03/26/2016 08/09/2016 18 16 Encounter Details Date Type Department Care Team Description 03/26/2016 Therapy Visit [facility] Gerardo Cavazos Chron ic bilateral Rehabilitation Services PT low back pain with [facility] OF left-sided sciatica [address] [facility] ATHLETIC MEDICINE (Primary Dx) [place] [address] [address] [address] [place], [place] [phone] [id number] Social History Tobacco Use Types Packs/Day Years Used Date Smoking Tobacco: Former Cigarettes Quit : 09/15/2015 Alcohol Use Standard Drinks/Week Comments Yes 0 (1 standard drink = 0.6 oz pure alcoho l) SMALL Sex Assigned at Date Recorded Not on file documented as of this encounter Progress Notes Yessenia Sheets PTA - 03/27/2016 8:51 AM CDT Subjective: Pertinent medical history includes: Overweight, mental illness, depression, fibromyalgia, thyroid problems, migraines, smoking and menopausal. Other surgeries include: Orthopedic surgery and other (Neck C-4, c-sections, appendix, gallbladder, hyster, bladder sling x3). Current medications: Cardiac medication, thyroid medication, pain medication, muscle relaxants and anti-depressants. 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 Primary job tasks include: Prolonged sitting, prolonged standing and lifting (carrying, pushing, pulling, computer work). Red flags: Numbness in perianal region and pain at rest/night. Objective: System Physical Exam General ROS Assessment/Plan: Gerardo Cavazos, PT - 03/26/2016 3:38 PM CDT Subjective: Pt describes LBP with intermittent pain into her left LE. Began insidiously in September of 2015. Sxs were severe at that time. She had an MRI then that showed a mild bulging disc in her lumbar spine. She received two injections in September that reduced her sxs by 50%. Since that time she has had ongoing sxs with flare- ups. . Patient reports pain: Lumbar spine left and lower lumbar spine. Radiates to: Thigh left and lower leg left. Pain is described as sharp, shooting and aching and is constant and reported as 8/10. Pain isworse in the A.M.. Symptoms are exacerbated by sitting and relieved by activity/movement. Since onset symptoms are unchanged. Special tests: MRI. Previous treatment: Injections. General health as reported by patient is fair. Barriers include: None as reported by the patient. Red flags: None as reported by the patient. Objective: System Lumbar/SI Evaluation Lumbar Myotomes: normal Lumbar DTR's: normal Neural Tension/Mobility: Right side: Slump positive. Zayda Lumbar Evaluation Posture: Sitting: fair Standing: good Lordosis: WNL Lateral Shift: no Correction of Posture: better Movement Loss: Flexion (Flex): min Extension (EXT): mod and pain Side [place] R (SG R): min and pain Side [place] L (SG L): mod and pain Test Movements: EIS: During: increases After: no worse Repeat EIS: During: increases After: no worse EIL: During: no effect After: no effect Repeat EIL: During: decreases After: better Conclusion: derangement Principle of Treatment: Extension: Yes ROS Assessment/Plan: Patient is a 50 year old female with lumbar complaints. Patient has the following significant findings with corresponding treatment plan. 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 Treatment Explanation - The following has been discussed with the patient: RX ordered/plan of care Anticipated outcomes Possible risks and side effects This patient would benefit from PT intervention to resume normal activities. Rehab potential is good. Frequency: 1 X week, once daily Duration: for 6 weeks Discharge Plan: Achieve all LTG. Independent in home treatment program. Reach maximal therapeutic benefit. Please refer to the daily flowsheet for treatment today, total treatment time and time spent performing 1:1 timed codes. documented in this encounter Plan of Treatment Not on filedocumented as of this encounter Procedures Procedure Name Priority Date/Time Associated Diagnosis Comme [facility] Z THERAPEUTIC Routine 03/26/2016 6:31 PM Chronic Bilateral L ow EXERCISES CDT Back Pain With Left-Sided Sciatica documented in this encounter Visit Diagnoses Diagnosis Chronic bilateral low back pain with lef t-sided sciatica - Primary documented in this encounter Care Teams Collection Administrator Relationship Specialty Start Date End Date Harriet Haley MD PCP - General Physician Gristmill Operator 10/01/15 [facility] [address] [place] [address] documented as of this encounter
--- OUTSIDE RECORDS SUMMARY | 2022-06-21 19:22 | XMS_ITS | Encounter Summary ---
:1965 Author Organization [place] Address [facility]0 [facility] [place] [address] Care Team Providers Name Role Phone Harriet Haley MD Primary Care Provider [phone] Reason for Referral Consultation - Closed Specialty Diagnoses / Procedures Referred By Contact Refer red To Contact Orthopedics and Sports Diagnoses Pain of left lower extremity Liu Gates MD [facility] [address] [facility] [phone] [place] [address] Phone: Fax: Referral ID Status Reason Start Date Expiration Date Visits Requ ested Visits Authorized [id number] Closed 05/08/2016 05/08/2017 1 1 Reason for Visit Reason Comments Urgent Care Foot Injury Encounter Details Date Type Department Care Team Description 05/08/2016 Office Visit M [facility] Liu Gates, Pain o f left lower Urgent Care Shaan kelly MD extremity (Primary Dx) [address] [facility] [address] [place] [address] [phone] Social History Tobacco Use Types Packs/Day Years Used Date Smoking Tobacco: Former Cigarettes Quit : 09/15/2015 Alcohol Use Standard Drinks/Week Comments Yes 0 (1 standard drink = 0.6 oz pure alcoho l) SMALL Sex Assigned at Date Recorded Not on file documented as of this encounter Last Filed Vital Signs Vital Sign Reading Time Taken Comments Blood Pressure 142/80 05/08/2016 7:44 PM CDT Pulse 96 05/08/2016 7:44 PM CDT Temperature 36.7 ??C (98 ??F) 05/08/2016 7:44 PM CDT Respiratory Rate - - Oxygen Saturation 99% 05/08/2016 7:44 PM CDT Inhaled Oxygen Concentration - - Weight 104.3 kg (230 lb) 05/08/2016 7:44 PM CDT Height 170.2 cm (5' 7) 05/08/2016 7:44 PM CDT Body Mass Index 36.02 05/08/2016 7:44 PM CDT documented in this encounter Progress Notes Liu Gates MD - 05/08/2016 7:41 PM CDT SUBJECTIVE: Lizzie He is a 50 year old female who presents to clinic today for the following health issues: Pt. Has fractures in 2 toes, and still having shooting pain, currently wearing boot on left foot. Was seen at [facility] urgent care last Thursday. Taking ibuprofen for pain. Problem list and histories reviewed & adjusted, as indicated. Additional history: Patient Active Problem List Diagnosis ??? Low back pain potentially associated with radiculopathy ??? Acute low back pain ??? Chronic bilateral low back pain with left-sided sciatica Past Surgical History Procedure Laterality Date ??? C nonspecific procedure C SECTION X2 Social History Substance Use Topics ??? Smoking status: Former Smoker Quit date: 09/15/2015 ??? Smokeless tobacco: Not on file ??? Alcohol Use: Yes Comment: SMALL Family History Problem Relation Age of Onset ??? DIABETES Father HYPERTENSION ALSO ??? Hypertension Mother THYROID ALSO ROS: Constitutional, HEENT, cardiovascular, pulmonary, gi and gu systems are negative, except as otherwise noted. OBJECTIVE: BP 142/80 mmHg Pulse 96 Temp(Src) 98 ??F (36.7 ??C) (Oral) Ht 5' 7 (1.702 m) Wt 230 lb (104.327 kg) BMI 36.01 kg/m2 SpO2 99% Body mass index is 36.01 kg/(m^2). GENERAL: alert, mild distress NECK: no adenopathy, no asymmetry, masses, or scars and thyroid normal to palpation RESP: lungs clear to auscultation - no rales, rhonchi or wheezes CV: regular rate and rhythm, normal S1 S2, no S3 or S4, no murmur, click or rub, no peripheral edemaand peripheral pulses strong ABDOMEN: soft, nontender, no hepatosplenomegaly, no masses and bowel sounds normal MS: lt foot in boot. C/o pain 2nd and 3rd toes Diagnostic Test Results: Xray -? IMPRESSION: No evidence for acute fracture or dislocation in the left foot. Small left plantar calcaneal spur. ?? ASSESSMENT/PLAN: ICD-10-CM 1. Pain of left lower extremity M79.605 XR Foot Left G/E 3 Views 50-year-old female with continuing problems with pain in her foot. She has complaints of pain that go up the ventral aspect of her foot. Complaints of pain at the MTP of the second and third digit and inferior to this area. There may be some minimal swelling. Her x-ray was taken and showed no evidence of fractures She is told that she has stress fractures and having significant pain. I would continue her in her boot at this time In addition I did give her pain medication and suggested she follow up with orthopedics. I suspect that they may want to MRI her foot Level IV visit 25 minutes spent in examination and counseling 50% of the time in counseling in regards to stress fractures and continuing pain Liu Gates MD [facility] documented in this encounter Nursing Notes Jennifer Mohan MA - 05/08/2016 7:45 PM CDT Chief Complaint Patient presents with ??? Urgent Care ??? Foot Injury Initial BP 142/80 mmHg Pulse 96 Temp(Src) 98 ??F (36.7 ??C) (Oral) Ht 5' 7 (1.702 m) Wt 230lb (104.327 kg) BMI 36.01 kg/m2 SpO2 99% Estimated body mass index is 36.01 kg/(m^2) as calculated from the following: Height as of this encounter: 5' 7 (1.702 m). Weight as of this encounter: 230 lb (104.327 kg). BP completed using cuff size: mamadou Mohan [employer] documented in this encounter Plan of Treatment Not on filedocumented as of this encounter Results XR Foot Left G/E 3 Views (05/08/2016 8:10 PM CDT) Anatomical Region Laterality Modality Foot, Ankle Left Computed Radiography Specimen (Source) Anatomical Location Collection Method / Collectio n Time Received Time / Laterality Volume Impressions 05/08/2016 8:45 PM CDT IMPRESSION: No evidence for acute fracture or dislocation in the left foot. Small left plantar calcaneal spur. ITZ DUENAS MD Narrative 05/08/2016 8:45 PM CDT LEFT FOOT 3 VIEWS ?? 05/08/2016 8:10 PM HISTORY: Left leg pain. COMPARISON: None. Procedure Note Itz Duenas MD - 05/08/2016Forma tting of this note might be different from the original. LEFT FOOT 3 VIEWS 05/08/2016 8:10 PM HISTORY: Left leg pain. COMPARISON: None. IMPRESSION: No evidence for acute fractu re or dislocation in the left foot. Small left plantar calcaneal spur. ITZ DUENAS MD Liu Gates MD IMG DIAGNOSTIC IMAGING ORDER NATALY documented in this encounter Visit Diagnoses Diagnosis Pain of left lower extremity - Primary Pain of left lower extremity documented in this encounter Care Teams Delivery Agent Relationship Specialty Start Date End Date Harriet Haley MD PCP - General Physician Electrical Mechanic 10/01/15 [facility] [address] [address] documented as of this encounter
--- OUTSIDE RECORDS SUMMARY | 2022-06-21 19:22 | XMS_ITS | Encounter Summary ---
:1965 Author Organization [employer] Address [address] [place] [address] Care Team Providers Name Role Phone Harriet Haley MD Primary Care Provider [phone] Encounter Details Date Type Department Care Team Description 02/19/2016 [facility] [address] [place], [place] [address] [place] [address] [phone] Social History Tobacco Use Types Packs/Day Years Used Date Smoking Tobacco: Former Cigarettes Quit : 09/15/2015 Alcohol Use Standard Drinks/Week Comments Yes 0 (1 standard drink = 0.6 oz pure alcoho l) SMALL Sex Assigned at Date Recorded Not on file documented as of this encounter OR Notes Anesthesia Postprocedure Evaluation - Cheryl Borges MD - 02/20/2016 12:39 PM CDT Patient: Lizzie He MID-URETHRAL SLING (RETROPUBIC), CYSTOSCOPY Anesthesia type: general Patient location: Phase II Recovery Last vitals: Vitals: 02/20/16 1227 BP: 117/64 Pulse: 80 Resp: 15 Temp: SpO2: 94% Post vital signs: stable Level of consciousness: awake and responds to simple questions Post-anesthesia pain: pain controlled Post-anesthesia nausea and vomiting: no Pulmonary: unassisted, return to baseline Cardiovascular: stable and blood pressure at baseline Hydration: adequate Anesthetic events: no QCDR Measures: ASA# 11 - Marianne-op Cardiac Arrest: ASA11B - Patient did NOT experience unanticipated cardiac arrest ASA# 12 - Marianne-op Mortality Rate: ASA12B - Patient did NOT ASA# 13 - PACU Re-Intubation Rate: ASA13B - Patient did NOT require a new airway mgmt ASA# 10 - Composite Anes Safety: ASA10A - No serious adverse event ASA# 38 - New Corneal Injury: ASA38A - No new exposure keratitis or corneal abrasion in PACU Additional Notes: Anesthesia Preprocedure Evaluation - Júnior Correa - 02/20/2016 7:49 AM CDT Anesthesia Evaluation Patient summary reviewed History of anesthetic complications (ponv) Airway Mallampati: II Neck ROM: full Pulmonary - negative ROS and normal exam (-) recent URI, sleep apnea, not a smoker Cardiovascular - normal exam Exercise tolerance: > or = 4 METS (+) dysrhythmias, hypercholesterolemia, ECG reviewed Neuro/Psych (+) neuromuscular disease (cervical, lumbar disc), depression, anxiety/panic attacks, Comments: Migraine; FM Endo/Other (+) hypothyroidism, obesity, GI/Hepatic/Renal (+) GERD well controlled, Dental - normal exam Anesthesia Plan Planned anesthetic: general LMA Decadron, Zofran. Ketamine (0.5 mg/kg). Toradol. ASA 3 Induction: intravenous Anesthetic plan and risks discussed with: patient Anesthesia plan special considerations: antiemetics, Post-op plan: routine recovery documented in this encounter Miscellaneous Notes Anesthesia Care Transfer Note - Jefferson Pruitt - 02/20/2016 10:58 AM CDT Last vitals: Vitals: 02/20/16 1050 BP: 125/66 Pulse: (!) 111 Resp: 16 Temp: 36.4 ??C (97.5 ??F) SpO2: 100% Patient's level of consciousness is drowsy Spontaneous respirations: yes Maintains airway independently: yes Dentition unchanged: yes Oropharynx: oropharynx clear of all foreign objects QCDR Measures: ASA# 20 - Surgical Safety Checklist: ASA20A - Safety Checks Done PQRS# 430 - Adult PONV Prevention: 4558F - Pt received => 2 anti-emetic agents (different classes) preop & intraop ASA# 8 - Peds PONV Prevention: NA - Not pediatric patient, not GA or 2 or more risk factors NOT present PQRS# 424 - Marianne-op Temp Management: 4559F - At least one body temp DOCUMENTED => 35.5C or 95.9F within required timeframe PQRS# 426 - PACU Transfer Protocol:G9655 - Transfer of care checklist used ASA# 14 - Acute Post-op Pain: ASA14B - Patient did NOT experience pain >= 7 out of 10 I completed my SBAR handoff to the receiving nurse per policy and procedure. documented in this encounter Plan of Treatment Not on filedocumented as of this encounter Visit Diagnoses Not on filedocumented in this encounter Care Teams R Developer Relationship Specialty Start Date End Date Harriet Haley MD PCP - General Physician Oil Changer 10/01/15 [address] [place] [address] documented as of this encounter
--- OUTSIDE RECORDS SUMMARY | 2022-06-21 19:22 | XMS_ITS | Encounter Summary ---
:1965 Author Organization [place] Address [address] [place] [id number] Care Team Providers Name Role Phone Harriet Haley MD Primary Care Provider [phone] Reason for Referral Rehab Therapy Physical Therapy Specialty Diagnoses / Procedures Referred By Contact Refer red To Contact [facility] [address] [place] [phone] Referral ID Status Reason Start Date Expiration Date Visits Requ ested Visits Authorized D PIPE LINES SUPERVISOR Specialty Diagnoses / Procedures Referred By Contact Refer red To Contact Arley Matute DO [address] [place] [address] Referral ID Status Reason Start Date Expiration Date Visits Requ ested Visits Authorized D PIPE LINES SUPERVISOR Reason for Visit Reason Comments Other Multiple Complaints Auth/Cert Specialty Diagnoses / Procedures Referred By Contact Refer red To Contact Diagnoses Weakness of both lower extremities Bilateral low back pain without sciatica Acute low back pain Rh 5 [facility] [address] [place], [place] [phone] Phone: Fax: Referral ID Status Reason Start Date Expiration Date Visits Requ ested Visits Authorized [id number] 10/02/2015 10/01/2016 1 1 Encounter Details Date Type Department Care Team Description [facility] [address] [place] [address] Acute low back pain (Primary Dx); 10/03/2015 [place] [address] [facility] [place], Aamir Tomlinson MD [address] [place] [address] Bilateral low back pain without sciatica ; Surgical Weakness of both lower extre mities; [address] Constipation, unspecified co nstipation type; [place], [place] Low back pain potentially associated with radiculopathy [id number] Social History Tobacco Use Types Packs/Day Years Used Date Smoking Tobacco: Every Day Comments: LESS THAN 1 PPD Alcohol Use Standard Drinks/Week Comments Yes 0 (1 standard drink = 0.6 oz pure alcoho l) SMALL Sex Assigned at Date Recorded Not on file documented as of this encounter Last Filed Vital Signs Vital Sign Reading Time Taken Comments Blood Pressure 131/66 10/03/2015 3:30 PM FIELD PIPE LINES SUPERVISOR Pulse 94 10/03/2015 3:30 PM FIELD PIPE LINES SUPERVISOR Temperature 36.5 ??C (97.7 ??F) 10/03/2015 3:30 PM FIELD PIPE LINES SUPERVISOR Respiratory Rate 16 10/03/2015 3:30 PM FIELD PIPE LINES SUPERVISOR Oxygen Saturation 94% 10/03/2015 3:30 PM FIELD PIPE LINES SUPERVISOR Inhaled Oxygen Concentration - - Weight 106.6 kg (235 lb) 10/01/2015 11:13 AM FIELD PIPE LINES SUPERVISOR Height 172.7 cm (5' 7.99) 10/01/2015 11:13 AM FIELD PIPE LINES SUPERVISOR Body Mass Index 35.74 10/01/2015 11:13 AM FIELD PIPE LINES SUPERVISOR documented in this encounter Discharge Summaries Arley Matute DO - 10/03/2015 3:40 PM CST [facility] Discharge Summary Hospitalist Date of Admission: 10/01/2015 Date of Discharge: 10/03/2015 6:10 PM Provider: Arley Matute DO [facility] Date of Service (when I last saw the patient): 10/03/2015 Discharge Diagnoses 1. Lumbar back pain with left leg radicular symptoms secondary to an L3-L4 disc extrusion. She is s/p an epidural steroid injection. Other medical issues: Past Medical History Diagnosis Date ??? Migraine, unspecified, without mention of intractable migraine without mention of status migrainosus ??? Herpes zoster without mention of complication Prior cervical surgery Ankylosing spondylitis History of Present Illness Mariusz Griffiths is an 49 year old female who presented with intractable back pain. Please see the admission history and physical for full details. Hospital Course Mariusz Griffiths was admitted on 10/01/2015. The following problems were addressed during her hospitalization: Ms. Griffiths presented with severe back pain radiating into her left leg. She also had some leg/bodytremors when in severe pain. She was given pain control and and MRI was done suggesting an L3-L4 disc problem as the possible cause. She was seen by neurology and spine surgery. Her pain improved but was still quite significant. An epidural steroid injection was carried out with improvement. She was able to ambulate and felt better by discharge. I recommended she remain off work until at least Thursday. She was referred for outpatient PT. She should follow-up with the spine team. She was comfortable with the plan at discharge. Significant Results and Procedures See below Pending Results Unresulted Labs Ordered in the Past 30 Days of this Admission No orders found from 08/03/2015 to 10/02/2015. Code Status Full Code Primary Care Physician Harriet Haley On day of discharge she was AO, appeared comfortable, heart regular, lungs clear, moving feet well with sensation to touch grossly intact. She was able to ambulate. Discharge Disposition Discharged to home Consultations This Hospital Stay NEUROLOGY IP CONSULT PHYSICAL THERAPY ADULT IP CONSULT SPINE SURGERY ADULT IP CONSULT Time Spent on This Encounter IArley, personally saw the patient today and spent greater than 30 minutes discharging this patient. Discharge Orders Dme Referral PHYSICAL THERAPY REFERRAL Reason for your hospital stay Back pain Follow-up and recommended labs and tests Follow-up with [facility]ine [facility] group in 1 week. RN to please provide their number for her to make an appointment that works in her schedule. Activity Your activity upon discharge: activity as tolerated Notify Call if questions. Notify if fever, uncontrolled pain, new neurologic changes, unable to urinate or have a bowel movement, other new medical concerns. Full Code Diet Follow this diet upon discharge: Regular Discharge Medications Discharge Medication List as of 10/03/2015 5:20 PM START taking these medications Details oxyCODONE (ROXICODONE) 5 MG immediate release tablet Take 1-2 tablets (5-10 mg) by mouth every 4 hours as needed for moderate to severe pain, Disp-30 tablet, R- 0, Local Print acetaminophen (TYLENOL) 500 MG tablet Take 2 tablets (1,000 mg) by mouth 3 times daily For one week then change to as needed. Do not take other tylenol/acetaminophen medications., OTC ibuprofen (ADVIL,MOTRIN) 600 MG tablet Take 1 tablet (600 mg) by mouth every 8 hours as needed for other (mild pain), Disp-120 tablet, OTC polyethylene glycol (MIRALAX) powder Take 17 g (1 capful) by mouth 3 times daily as needed for constipation, Disp-510 g, R-1, OTC order for DME Equipment being ordered: Cane (E0100) Treatment Diagnosis: Acute back painDisp-1 Device, R-0, Local Print CONTINUE these medications which have NOT CHANGED Details Pregabalin (LYRICA PO) Take 300 mg by mouth 2 times daily , Historical Varenicline Tartrate (CHANTIX PO) Take 1 mg by mouth 2 times daily, Historical Verapamil HCl (CALAN SR PO) Take 120 mg by mouth every morning, Historical DULoxetine HCl (CYMBALTA PO) Take 120 mg by mouth every evening , Historical LEVOTHYROXINE SODIUM PO Take 88 mcg by mouth daily , Historical Allergies Allergies Allergen Reactions ??? No Known Allergies Data Recent Labs Lab 10/01/15 1155 WBC 9.5 HGB 13.0 HCT 37.8 MCV 88 PLT 269 Recent Labs Lab 10/01/15 1155 NA 136 POTASSIUM 4.5 CHLORIDE 104 CO2 24 ANIONGAP 8 GLC 113* BUN 10 CR 0.76 GFRESTIMATED 81 GFRESTBLACK >90African Faroese GFR Calc DRE 8.9 Recent Labs Lab 10/01/15 1213 COLOR Straw APPEARANCE Clear URINEGLC Negative URINEBILI Negative URINEKETONE Negative SG 1.003 UBLD Negative URINEPH 6.5 PROTEIN Negative NITRITE Negative LEUKEST Negative Results for orders placed or performed during the hospital encounter of 10/01/15 Lumbar spine MRI w/o contrast Narrative MRI LUMBAR SPINE WITHOUT CONTRAST 10/01/2015 2:45 PM HISTORY: Eight days of low back pain with left lower extremity pain and weakness. COMPARISON: None. TECHNIQUE: Sagittal T1, T2, and STIR, and transverse proton density and T2-weighted images were obtained through the lumbar spine. FINDINGS: Numbering of the levels is based on what appear to be five lumbar type vertebral bodies. Vertebral body alignment is normal. No fracture is seen. No pars interarticularis defect is demonstrated. No osseous lesion is seen. No abnormal marrow signal intensity is identified. The conus medullaris terminates at the level of the L1-L2 disc. No intrathecal abnormality is seen. The adjacent soft tissues are unremarkable. Findings by specific level: T12-L1: The disc and facet joints are normal. No stenosis is seen. L1-L2: The disc and facet joints are normal. No stenosis is seen. L2-L3: The disc and facet joints are normal. No stenosis is seen. L3-L4: There is mild disc dehydration. The disc height is well-preserved. There is a small broad-based left central disc extrusion. This results in only mild mass effect upon the thecal sac with a mild degree of central canal stenosis. No nerve root displacement or foraminal narrowing is seen. There are mild degenerative changes in the facet joints. L4-L5: The disc and facet joints are normal. No stenosis is seen. L5-S1: The disc space is normal with no herniation or stenosis seen. There are moderate degenerative changes in the facet joints. Impression IMPRESSION: At L3-L4 there is a small left central disc extrusion resulting in mild central canal stenosis. YEMI COATES MD XR Lumbar Transforaminal Inj Single Narrative XR LUMBAR TRANSFORAMINAL ADDITIONAL, XR LUMBAR TRANSFORAMINAL INJ SINGLE 10/03/2015 10:33 AM History: Degenerative disc disease. Request for bilateral L3-4 transforaminal epidural steroid injections. Procedure: The risks (bleeding, infection, reaction to contrast and medications) and benefits of the procedure were explained to the patient and consent was obtained. Using sterile technique and fluoroscopic guidance a #22 gauge spinal needle was placed into the bilateral L3-4 foramen using a posterior- lateral approach. A small amount of contrast was injected confirming satisfactory position of the needle tips. 30 mg of dexamethasone mixed with 5 mL of lidocaine 1% were injected, split between each site No initial complication. Fluoroscopy time: 0.4 minutes The patient's pain levels (0-10 scale) were as follows: PRE INJECTION Low back 5 Right leg 0 Left leg 5 POST INJECTION Low back 6 Right leg 0 Left leg 8 Impression Impression: Technically successful transforaminal lumbar epidural steroid injection with no initial pain relief. terminal operator results pending. JOSE WELLS PA-C XR Epidural Transforaminal Lumbar Addl Narrative XR LUMBAR TRANSFORAMINAL ADDITIONAL, XR LUMBAR TRANSFORAMINAL INJ SINGLE 10/03/2015 10:33 AM History: Degenerative disc disease. Request for bilateral L3-4 transforaminal epidural steroid injections. Procedure: The risks (bleeding, infection, reaction to contrast and medications) and benefits of the procedure were explained to the patient and consent was obtained. Using sterile technique and fluoroscopic guidance a #22 gauge spinal needle was placed into the bilateral L3-4 foramen using a posterior- lateral approach. A small amount of contrast was injected confirming satisfactory position of the needle tips. 30 mg of dexamethasone mixed with 5 mL of lidocaine 1% were injected, split between each site No initial complication. Fluoroscopy time: 0.4 minutes The patient's pain levels (0-10 scale) were as follows: PRE INJECTION Low back 5 Right leg 0 Left leg 5 POST INJECTION Low back 6 Right leg 0 Left leg 8 Impression Impression: Technically successful transforaminal lumbar epidural steroid injection with no initial pain relief. terminal operator results pending. JOSE WELLS PA-C D PIPE LINES SUPERVISOR documented in this encounter Medications at Time [...] Diagnosis: Acute back pain low back pain Verapamil HCl (CALAN SR Take 120 mg by mouth 0 PO) every morning oxyCODONE (ROXICODONE) Take 1-2 tablets 30 tablet 0 016 11/13/2015 5 MG immediate release (5-10 mg) by mouth tabletIndications: every 4 hours as Acute low back pain needed for moderate to severe pain polyethylene glycol Take 17 g (1 capful) 510 g 1 201506/26/2016 (MIRALAX) by mouth 3 times powderIndications: daily as needed for Constipation, constipation unspecified constipation type Pregabalin (LYRICA PO) Take 300 mg by mouth 0 06/26/2016 2 times daily Varenicline Tartrate Take 1 mg by mouth 2 0 06/26/2016 (CHANTIX PO) times daily documented as of this encounter Progress Notes Julia Gross RN - 10/03/2015 5:57 PM CST OBSERVATION patient END time: 1800 D PIPE LINES SUPERVISOR Yvrose Garcia MD - 10/03/2015 12:11 PM CST Neurological progress note. The patient was seen at approximate 9:30 this morning. Prior to her epidural injection. She tells me that her pain is still significant. It is brought down to a 5/10 in intensity after heroxycodone. But she would prefer not to have to rely on a narcotic medication for pain management.herpain is still traveling down her left lower extremity unchanged.worse when standing. She tells me that she has been able to ambulate with a cane independently. Her tremors have been limited to the lower extremities and have improved. She denies any pain in her neck. Denies any radiculopathy, sensory or motor changes in her upper extremities. On examination She is pleasant, alert and cooperative. Insight and current knowledge, speech and line which is normal. Blood pressure is 119/73, pulse 90, temperature 96.1. Respirations 16. she has mild weakness in the left lower extremity throughout. With at least 5 minus over 5 strength in hip flexion, knee flexion and extension and ankle dorsiflexion and plantar flexion. She is able to stand independently. With mild tremor in the left lower extremity when standing. She is able to ambulate independently with mild instability of gait. Narrow-base. Normal strength in both upper extremity's. Normal coordination in the upper extremitiess. Deep tendon reflexes +2 in both knees , +1 at both ankles Face is symmetrical. she has increased tightness in lumbar paraspinal muscles bilaterally has a forward posture when standing Her EMG of the left lower extremity was unremarkable. Impression Left lower extremity radicular pain in a mid lumbar distribution consistent with mild disc herniation at L3-4. No evidence of significant radiculopathy at this stage on her EMG. Clinical examination has also been somewhat variable over the last 2 days. At this time no significant objective motor deficit. From a tremor point of view this Appears to be localized to the left lower extremity when standing. And is improving. I would expect this to be linked to her radicular pain. No further neurological recommendations at this time. Pain management as per spine group. Call if questions Doris Barrera RN - 10/03/2015 10:46 AM CST Incorrect documentation for decadron for YUE injection on OCT. Given one dose 30 mgm . Not given IV Doris Barrera RN - 10/03/2015 10:32 AM CST Consent for bilateral YUE obtained. Pt tolerated procedure very well by Jose SIMENTAL. Pt understands DC instructions. Pt transported back to IP room per cart with no bleeding or evident complications. Jose Negro PA-C - 10/03/2015 10:24 AM CST RADIOLOGY PROCEDURE NOTE Patient name: Mariusz Griffiths : 1965 Pre-procedure diagnosis: Back pain Post-procedure diagnosis: Same Procedure Date/Time: October 03, 2015 10:25 AM Procedure: Bilateral L3-L4 TFESI Estimated blood loss: None Specimen(s) collected with description: none The patient tolerated the procedure well with no immediate complications. Significant findings:none See imaging dictation for procedural details. Provider name: Jose Wells Early Intervention Specialist(s):None D PIPE LINES SUPERVISOR Arley Matute DO - 10/03/2015 9:42 AM CST Feeling better though still back pain with some radiation down left leg when up. EMG pending. YUE pending today. Exam stable. I will reassess her following YUE. She also requests an off work slip whichI will address once I see how she is post YUE. Possible d/c later today if feeling better. Kunal Yanes PA-C - 10/03/2015 9:11 AM CST s- reports pain/tremors improving O-vss afebrile Exam unchanged A/p Central L3-4 disc herniation -yue today -f/u [facility]bi 1-2 weeks Gerardo Swenson, PT - 10/02/2015 4:17 PM CST 10/02/15 1542 Quick Adds Type of Visit Initial PT Evaluation Living Environment (R) Lives With spouse Living Arrangements house Home Accessibility stairs within home Number of Stairs Within Home 14 (2 flights of stairs) Stair Railings At Home present on right side Transportation Available family or friend will provide Living Environment Comment Pt reports walk in shower on main level of home Self-Care Dominant Hand right Usual Activity Tolerance good Current Activity Tolerance fair Regular Exercise yes (pt just started back up at the gym) Activity/Exercise Type walking;biking (just started recumbant bike and walking program last wk) Exercise Amount/Frequency (pt went to gym 2x last week prior to onset of pain) Equipment Used at Home none Activity/Exercise/Self-Care Comment Pt functions indep at baseline, 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 (R) Functional Level Prior (R) Ambulation 0-->independent (R) Transferring 0-->independent (R) Toileting 0-->independent (R) Bathing 0-->independent (R) Dressing 0-->independent (R) Eating 0-->independent (R) Communication 0-->understands/communicates without difficulty (R) Swallowing 0-->swallows foods and liquids without difficulty (R) Cognition 0 - no cognition issues reported (R) Fall history within last six months no (R) Which of the above functional risks had a recent onset or change? ambulation;transferring Prior Functional Level Comment Pt reports indep function at baseline, began exercising last wk walking and using a recumbant bike, then had onset of acute on chronic LBP with david LE tremor. General Information Onset of Illness/Injury or Date of Surgery - Date 10/01/[address] Cordova Patient/Family Goals Statement Pt wants to have improved pain and tremor control, return to activityand exercise Pertinent History of Current Problem Pt presented with acute on chronic LBP with LE weakness L>R and LE tremors. Hx of crhonic LBP, cervical radiculopathy with ACDF in 2004. Pt found to have L3-4 small central disc extrusion on MRI, plan for YUE tomorrow. Precautions/Limitations fall precautions Weight-Bearing Status - LLE full weight-bearing Weight-Bearing Status - RLE full weight-bearing Cognitive Status Examination Orientation orientation to person, place and time Pain Assessment Patient Currently in Pain Yes, see Vital Sign flowsheet (12/17 localized L3-4 back pain with standing/gait) Integumentary/Edema Integumentary/Edema no deficits were identifed Posture Posture Not impaired Range of Motion (ROM) ROM Comment PROM WFL david LEs, positive SLR dural test LLE, hamstring tightness bilaterally Strength Strength Comments RLE WFL, mild LLE weakness L ankle dorsiflexion 3+ to 4-/5, able to demo SLR but shaky. Bed Mobility Bed Mobility Comments SBA, limited by pain, log roll Transfer Skills Transfer Comments Sit <> stand with UE support and CGA, moving slowly due to pain, legs shaky/tremors upon standing Gait Gait Comments Ambulatory in room and hallway with light UE support for balance, david LE shakiness/tremors noted causing impaired stability, slower gait speed. Balance Balance Comments Standing with SBA, gait skills with light UE support for balance, limited by back pain rated 5/10 and david LE shakiness/tremors wit standing/gait activity, pt reports onset of this ~6 days ago. Sensory Examination Sensory Perception no deficits were identified Coordination Coordination Comments normal finger to nose testing david, rhythmic tremors noted in legs with standing/gait Muscle Tone Muscle Tone no deficits were identified Modality Interventions Planned Modality Interventions Cryotherapy Planned Modality Interventions Comments prn to low back General Therapy Interventions Planned Therapy Interventions balance training;bed mobility training;gait training;neuromuscular re-education;strengthening;stretching;transfer training;risk factor education;home program guidelines;progressive activity/exercise Clinical Impression Criteria for Skilled Therapeutic Intervention yes, treatment indicated PT Diagnosis Impaired functional mobility tolerance APTA Preferred Practice Pattern musculoskeletal Influenced by the following impairments Pain, weakness, tremors/impaired coordination of legs, impaired balance Functional limitations due to impairments Impaired safety and tolerance with functional transfers, gait, stairs, bed mobility Rehab Potential good, to achieve stated therapy goals Rehab potential affected by age, PLOF Therapy Frequency` 5 times/week Predicted Duration of Therapy Intervention (days/wks) 2-3 days Anticipated Equipment Needs at Discharge (consider cane, pending symptoms and progress) Anticipated Discharge Disposition Home with Assist;Home with Outpatient Therapy Risk & Benefits of therapy have been explained Yes Patient, Family & other staff in agreement with plan of care Yes Clinical Impression Comments Pt is currently limited by localized LBP rated 5/10 with standing activity and gait skills, onset of david LE shakiness/tremors with standing and gait noted which impaired her overall stability. Pt is currently benefitting from use of cane with gait skills, issued to room. Noted small L3-4 disc extrusion on MRI findings and plan for YUE tomorrow. Recommend d/c home with spouse support and OP PT. Total Evaluation Time Total Evaluation Time (Minutes) 15 D PIPE LINES SUPERVISOR Arley Matute DO - 10/02/2015 3:57 PM CST [facility] Hospitalist Progress Note Name: Mariusz Griffiths Provider: Arley Matute DO [facility] Date of Service: 10/02/2015 Assessment and Plan Summary of Stay: Mariusz Griffiths is a 49 year old female who was admitted on 10/01/2015 with backpain. 1. Back pain with left leg radiation, L3-L4 disc extrusion likely contributing: - Tylenol scheduled, narcotics PRN - Appreciate neuro and spine team consults. Plan for YUE noted. - Therapy 2. Tremor episode with #1: - Most likely pain and response related from #1. EMG plan noted. A vaso- vagal/orthostatic response when the pain was quite severe may have also contributed. Monitor for now. If occurs further re-evaluate. Appreciate neuro consult. 3. Ankylosing spondylitis: - Chronic issue the patient follows Rheum for. Appears likely #1 primary disc related in this instance. 4. Hypothyroidism: - Levothyroxine 5. Migraines: - Verapamil to continue, denied new CONNER earlier today when I saw her. DVT Prophylaxis: Pneumatic Compression Devices Code Status: Full Code Disposition: Expected discharge unclear, possibly tomorrow depending on status after YUE and furthertherapy. Interval History Ms. Griffiths felt better today. Pain more controlled at rest but still worse when up walking with some radiation down left leg. She denies chest pain, sob, nausea, further tremor/shake episodes like prior. -Data reviewed today: I reviewed all new labs and imaging reports over the last 24 hours. I personally reviewed no images or EKG's today. Physical Exam Temp: 97.2 ??F (36.2 ??C) Temp src: Oral BP: 121/67 mmHg Pulse: 82 Heart Rate: 78 Resp: 16 SpO2: 94 % O2 Device: None (Room air) Filed Vitals: 10/01/15 1113 Weight: 106.595 kg (235 lb) Vital Signs with Ranges Temp: [97 ??F (36.1 ??C)-97.6 ??F (36.4 ??C)] 97.2 ??F (36.2 ??C) Pulse: [79-82] 82 Heart Rate: [78] 78 Resp: [14-18] 16 BP: (121-151)/(67-88) 121/67 mmHg SpO2: [94 %-96 %] 94 % I/O last 3 completed shifts: In: 723 [P.O.:720; I.V.:3] Out: - GEN: Alert, oriented x 3, appears comfortable, NAD. HEENT: Normocephalic/atraumatic, no scleral icterus, no nasal discharge, mouth moist. CV: Regular rate and rhythm, no murmur, rub, or JVD. S1 + S2 noted, no S3 or S4. LUNGS: Clear to auscultation bilaterally without rales/rhonchi/wheezing/retractions. Symmetric chestrise on inhalation noted. ABD: Active bowel sounds, soft, non-tender/non-distended. No rebound/guarding/rigidity. EXT: No edema. No cyanosis. No acute joint synovitis noted. Moves feet well. LE strength appears symmetric at the moment though full exam left leg somewhat limited by pain in back. SKIN: Dry to touch, no exanthems noted in the visualized areas. Medications ??? sodium chloride (PF) 3 mL Intracatheter Q8H ??? acetaminophen 1,000 mg Oral TID ??? DULoxetine (CYMBALTA) DR capsule 120 mg 120 mg Oral QPM ??? levothyroxine (SYNTHROID, LEVOTHROID) tablet 88 mcg 88 mcg Oral Daily ??? pregabalin 300 mg Oral BID ??? varenicline (CHANTIX) tablet 1 mg 1 mg Oral BID ??? verapamil (CALAN-SR) CR tablet 120 mg 120 mg Oral QAM Data Recent Labs Lab 10/01/15 1155 WBC 9.5 HGB 13.0 HCT 37.8 MCV 88 PLT 269 Recent Labs Lab 10/01/15 1155 NA 136 POTASSIUM 4.5 CHLORIDE 104 CO2 24 ANIONGAP 8 GLC 113* BUN 10 CR 0.76 GFRESTIMATED 81 GFRESTBLACK >90African Faroese GFR Calc DRE 8.9 No results found for this or any previous visit (from the past 24 hour(s)). D PIPE LINES SUPERVISOR Praveen Machado - 10/02/2015 2:52 PM CST 10/02/15 1400 Visit Information Visit Made By Staff Clerical Adviser Type of Visit Initial Visited Patient Interventions Plan of Care Review With interdisciplinary team Basic Spiritual Interventions Assessment of spiritual needs/resources;Reflective conversation;Prayer;Facilitating connection with other support resources Advanced Assessments/Interventions Presenting Concerns/Issues Spiritual/sabianism/emotional support;Grief and adjustment issues [facility] Progress Note [facility] Med. Surg. 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 Pt reported that she is being treated for lower back pain and leg tremors. She focused the conversation on the of her brother Dereje, who from a car accident last April. Pt identified other losses including the of her grandmother and becoming an empty-jayce. In addition, she expressed concern for her parents' marriage. She talked about being angry with God for her brother's and feeling a disconnection with her spirituality. Pt also acknowledged that she is depressed and feels little motivation to do things. Pt named her awesome and her therapist among those within her support [place]. She asked for grief support [place] in the area. INTERVENTION: Offered reflective conversation and grief support inviting pt to express her thoughts and feelings about her losses. Explored with her how she might express her anger to God through the lament psalms, offered prayer, and provided contact information for three grief support groups in the area. OUTCOME: Pt shared her memories of Dereje, reflected on his personality, and questioned why he just as hislife was coming together. She identified significant people within her support network, expressed interest in the lament psalms and grief support groups, and welcomed prayer. PLAN: Pt expects to discharge tomorrow; I and other chaplains remain available per pt's request. Praveen Machado M.Div., [facility] Staff Clerical Adviser Pager [phone] D PIPE LINES SUPERVISOR documented in this encounter H&P Notes Olga Lidia Dumont PA-C - 10/01/2015 5:11 PM CST [facility] Outpatient / Observation Unit History and Physical Exam Mariusz Griffiths Date of : 1965 Age: [age] year old Date of Admission: 10/01/2015 Primary care provider: Harriet Haley Assessment: Mariusz Griffiths is a 49 year old female with a PMH significant for migraines, fibromyalgia, and chronic back pain, who presents with acute back pain. Work up in ED reveals: VSS. BMP and CBC unremarkable. UA unremarkable. MRI of the lumbar spine was obtained which did show a small left central disc extrusion resulting in mild central canal stenosis. She received 30 mg IV Toradol and 50 mg PO tramadol in the ED. Patient is being registered to observation for further evaluation and continue supportive therapy. 1. Acute back pain: hx of chronic back pain as well. 1 week of worsening back pain with associated lower extremity weakness and shaking. Pt reports bilateral weakness, on my exam, weakness was only noted on the left, most notably with hip and knee flexion. Manual muscle testing on left did produce bouncing or ratcheting response. Denies numbness or loss of sensation, denies loss of bowel or bladder control. Will continue with pain control and neuro consult. ED spoke with neurology and they are awareof the pt. PT consult 2. Fibromyalgia - resume home meds Plan: 1. [place] to Observation 2. Neuro checks Q4 and serial pain assessments 3. Initiate heat, ice and activity as tolerated 4. Start scheduled tylenol. Add PRN oxycodone, vistaril 5. Consider steroids if appropriate 6. Encourage ambulation, PT consult 7. DVT prophylaxis: pt at low risk, encourage ambulation 8. Neurology consult Chief Complaint: Back pain History of Present Illness: Mariusz Griffiths is a 49 year old female with a PMH significant for migraines, fibromyalgia, and chronic back pain, who presents with acute back pain. The patient reports that 8 days ago she developed dysuria and low back pain and the following day was diagnosed with a UTI and started on Cipro. Five days ago the patient developed tremor in all four extremities at which point she was evaluated by her primary and told that if they persisted or worsened she needed to be seen in the ED. This morning the patient became diaphoretic, nauseous and had blurred vision, prompting her to come into the ED (now resolved). Here she reports that along with her new onset symptoms this morning she has continued having low bilateral back pain that began about a week ago. This is similar to her typical chronic back pain but feels much more severe than usual. She has been taking ibuprofen the last few days for her pain, with only slight alleviation. The patient has continued having weakness and tremors in lower extremities only, and states that it has become difficult for her to lift her left leg. She notes that her urinary symptoms have resolved since taking the antibiotics. She denies any fever, chills, vomiting, abdominal pain, diarrhea, chest pain, shortness of breath, cough or cold symptoms, changes in urination, headache, and numbness. Past Medical History: Past Medical History Diagnosis Date ??? Migraine, unspecified, without mention of intractable migraine without mention of status migrainosus ??? Herpes zoster without mention of complication Past Surgical History: Past Surgical History Procedure Laterality Date ??? C nonspecific procedure C SECTION X2 Social History: History Social History ??? Marital Status: Spouse Name: N/A Number of Children: N/A ??? Years of Education: N/A Occupational History ??? Not on file. Social History Main Topics ??? Smoking status: Current Every Day Smoker ??? Smokeless tobacco: Not on file Comment: LESS THAN 1 PPD ??? Alcohol Use: Yes Comment: SMALL ??? Drug Use: Not on file ??? Sexual Activity: Not on file Other Topics Concern ??? Not on file Social History Narrative ??? No narrative on file Family History: Family History Problem Relation Age of Onset ??? Diabetes Father HYPERTENSION ALSO ??? Hypertension Mother THYROID ALSO Allergies: Allergies Allergen Reactions ??? No Known Allergies Medications: Prior to Admission medications Medication Sig Last Dose Taking? Auth Provider DULoxetine HCl (CYMBALTA PO) Reported, Patient LEVOTHYROXINE SODIUM PO Reported, Patient Gabapentin (NEURONTIN PO) Reported, Patient FIORICET 50-325-40 MG OR TABS 1 TABLET EVERY 4 HOURS NEEDED Amor Montgomery MD LORAZEPAM 1 MG OR TABS 1 tab q 8h prn for anxiety HYDROCODONE-ACETAMINOPHEN 10-325 MG OR TABS 1 CAPSULE EVERY 4 HOURS NEEDED EFFEXOR XR 75 MG OR CP24 1 qam to titrate to 2 qam ZYBAN 150 MG OR TBCR 1 tab QD (Once per day)x3 days then 1 tab BID (Twice per day) x 6 weeks Review of Systems: A Comprehensive greater than 10 system review of systems was carried out. Pertinent positives and negatives are noted above. Otherwise negative for contributory information. Physical Exam: Blood pressure 147/88, pulse 90, temperature 97.8 ??F (36.6 ??C), temperature source Oral, resp. rate 20, height 1.727 m (5' 7.99), weight 106.595 kg (235 lb), SpO2 95 %. GENERAL: Comfortable. PSYCH: pleasant, oriented, No acute distress. HEENT: Atraumatic, normocephalic. Normal conjunctiva, normal hearing, and oropharynx is normal. NECK: Supple, no neck vein distention HEART: RRR LUNGS: Normal Respiratory effort. EXTREMITIES: No pedal edema, +2 pulses bilateral and equal. SKIN: Dry to touch, No rash, wound or ulcerations. NEUROLOGIC: CN 2-12 intact, 4+/5 strength on left with knee and hip flexion and hip extension. Active hip extension causes a bouncing movement of the leg, to a lesser extent with strength testing of left ankle dorsi and plantar flexion. 5/5 strength of right LE. Sensation is intact with no focal deficits. Data: Recent Labs Lab 10/01/15 1155 WBC 9.5 HGB 13.0 HCT 37.8 MCV 88 PLT 269 Recent Labs Lab 10/01/15 1155 NA 136 POTASSIUM 4.5 CHLORIDE 104 CO2 24 ANIONGAP 8 GLC 113* BUN 10 CR 0.76 GFRESTIMATED 81 GFRESTBLACK >90African Faroese GFR Calc DRE 8.9 Recent Labs Lab 10/01/15 1213 COLOR Straw APPEARANCE Clear URINEGLC Negative URINEBILI Negative URINEKETONE Negative SG 1.003 UBLD Negative URINEPH 6.5 PROTEIN Negative NITRITE Negative LEUKEST Negative Recent Results (from the past 48 hour(s)) Lumbar spine MRI w/o contrast Narrative MRI LUMBAR SPINE WITHOUT CONTRAST 10/01/2015 2:45 PM HISTORY: Eight days of low back pain with left lower extremity pain and weakness. COMPARISON: None. TECHNIQUE: Sagittal T1, T2, and STIR, and transverse proton density and T2-weighted images were obtained through the lumbar spine. FINDINGS: Numbering of the levels is based on what appear to be five lumbar type vertebral bodies. Vertebral body alignment is normal. No fracture is seen. No pars interarticularis defect is demonstrated. No osseous lesion is seen. No abnormal marrow signal intensity is identified. The conus medullaris terminates at the level of the L1-L2 disc. No intrathecal abnormality is seen. The adjacent soft tissues are unremarkable. Findings by specific level: T12-L1: The disc and facet joints are normal. No stenosis is seen. L1-L2: The disc and facet joints are normal. No stenosis is seen. L2-L3: The disc and facet joints are normal. No stenosis is seen. L3-L4: There is mild disc dehydration. The disc height is well-preserved. There is a small broad-based left central disc extrusion. This results in only mild mass effect upon the thecal sac with a mild degree of central canal stenosis. No nerve root displacement or foraminal narrowing is seen. There are mild degenerative changes in the facet joints. L4-L5: The disc and facet joints are normal. No stenosis is seen. L5-S1: The disc space is normal with no herniation or stenosis seen. There are moderate degenerative changes in the facet joints. Impression IMPRESSION: At L3-L4 there is a small left central disc extrusion resulting in mild central canal stenosis. MD Olga Lidia HARRIS PA-C D PIPE LINES SUPERVISOR Associated attestation - Arley Matute DO - 10/01/2015 9:49 PM FIELD PIPE LINES SUPERVISOR Physician Attestation IArley, saw and evaluated Mariusz Griffiths as part of a shared visit. I have reviewedand discussed with the advanced practice provider their history, physical and plan. I personally reviewed the vital signs, medications, labs and imaging. My jang history or physical exam findings: Patient with low back pain on raising legs and palpation. Heart regular, lungs clear, abdomen non-tender. Sensation to touch LE grossly intact. Of note the patient has chronic back pain and also a recent UTI. I do not think a UTI/pyelo is a likely cause of her current pain. It is unclear if her current pain is related to general musculoskeletal back issues or ankalosing spondylitis which she has a history of. She has not been on treatment forover 8 months but has followed with rheumatology. Jang management decisions made by me: - Neurology and spine surgery have been asked to see her tomorrow. If they feel there is not a general musculoskeletal common cause here we may need to contact her manager monitoring. For now plan pain control and neuro monitoring. Pain is better since admission. Arley Matute Date of Service (when I saw the patient): 10/01/2015 documented in this encounter Consult Notes Yvrose Garcia MD - 10/02/2015 12:28 PM CSTAssociated Order(s): NEUROLOGY IP CONSULT HISTORY OF PRESENT ILLNESS: Mariusz Griffiths is a 49-year-old woman who we were asked to see because of tremor and left lower extremity pain. The patient tells me that she started to develop a tremor in her lower extremities, particularly when she stands over the past several days, approximately mid-week last week. There were no recent changes in medications. She has been on Lyrica and Cymbalta with unchanged doses for her chronic pain issues related to her fibromyalgia and chronic low back pain. She also states that she has had more pain in her left lower extremity. The pain with radiating in the middle aspect of her thigh on the left, mid leg and down to her toe. This was a new symptom. She remembers having had an MRI of her lumbar spine some time ago, unclear when at [facility], the results of which we do not have. She has been treated by her manager monitoring for spondylosing ankylosis and has had a chronic upper neck pain as well. She is status post cervical fusion. She denies any significant upper extremity numbness or weakness. She has no radicular pains in her upper extremities. No changes in her back, bowel or bladder dysfunction. She tells me that she has not had any physical therapy now for over a year. The MRI of the lumbar spine done on this admission showed a small central disk extrusion at L3-4. Nosignificant central canal stenosis. She has been treated with Toradol and tramadol in the emergency room. Currently, she has been receiving Hydroxyzine 25 mg and had a dose of oxycodone 5-10 mg this morning. She tells me that her pain level was an 8/10 on her low back at admission and is now 5/10. She has been ambulatory in their room but has preferred to have the assistance of her earlier. She tells me that she has been able to ambulate independently but feels a little bit off balance as if her left leg would not quite support her. MEDICATIONS: 1. Tylenol. 2. Cymbalta 120 mg q. day. 3. Lyrica 300 mg twice daily. 4. Levothyroxine 88 mcg. 5. Chantix 1 mg twice daily. 6. Verapamil 120 mg q. day. 7. P.r.n. hydroxyzine and Oxycodone as noted above. ALLERGIES: She has no known allergies. PAST MEDICAL HISTORY: 1. Notable for ankylosing spondylitis. Followed by Rheumatology. 2. Fibromyalgia. 3. Herpes zoster. 4. Migraine. 5. Cervical fusion. 6. x2. SOCIAL HISTORY: She is . No tobacco. Occasional alcohol. FAMILY HISTORY: Positive for diabetes, hypertension and thyroid disease. PHYSICAL EXAMINATION: GENERAL: She is a pleasant, alert, middle-aged woman. Overweight. She is resting comfortably. She isable to sit up without significant discomfort. VITAL SIGNS: Her blood pressure is 121/67, heart rate 78, temperature 97.2, respirations 16, O2 is 94%. HEENT: Pupils are equal and equally reactive to light. Extraocular movements are full without nystagmus. The face is symmetrical. Facial sensation is intact. Uvula rises in the midline. The tongue protrudes symmetrically. NEUROLOGIC: She has normal strength in both proximally and distally. She has normal strength in the right lower extremity, both proximally and distally with mild giveway weakness in hip flexion. She has giveway weakness in the left lower extremity proximally but eventually a 5- strength in hip flexion, knee flexion and extension. She has mild ankle dorsiflexion weakness on the left. Plantar flexion is normal. She reports feeling normal pinprick sensation in both upper extremities as well as both lower extremities. Reflexes are +1 in both upper extremities. +1 at the knees bilaterally and right ankle. Absent left ankle jerk. Tone is equal and symmetric. When standing up she had orthostatic type of tremor in both lower extremities. It was not ambulated further because of concern of risk. [id number] was normal. LABORATORY: Her labs included normal chemistry panel except for a glucose of 113. CBC is normal. UA is negative. IMPRESSION: A 49-year-old woman with a history of left lower extremity radicular pain in a distribution of mid-lumbar levels with radiation in the medial aspect of her thigh and leg. This is consistentwith the small disk extrusion at L3-4 on her lumbar MRI. She is already on Lyrica. In that context, the therapeutic options may be to consider a left lumbar L3-4 epidural versus physical therapy and introduction of a muscle relaxant such as cyclobenzaprine. As her pain level at this time is 5/10 she may be a good candidate for PT and muscle relaxant therapy. I will leave that up to the spine consultants at this time. Her tremor is notable for an orthostatic component. She also has some give-way weakness in the lowerextremities bilaterally. ?left ankle dorsiflexion weakness,?chronic vs new. I requested an EMG of the left lower extremity for assessment of the degree of radicular problems present. Consideration of imaging of her brain in view of this gait disorder will be considered depending on her progress. YVROSE GARCIA MD MT: [id number] Name: MARIUSZ GRIFFITHS MRN: [id number] Account: [id number] : 1965 Consult Date: 10/02/2015 Document: [id number] D PIPE LINES SUPERVISOR Kunal Villarreal PA-C - 10/02/2015 12:17 PM CSTAssociated Order(s): SPINE SURGERY ADULT IP CONSULT [facility] Spine Consultation Mariusz Griffiths Age: [age] year old Date of : 1965 Date of Admission: 10/01/2015 Reason for consult: Acute/chronic LBP david LE pain/tremors Requesting physician: Dr Matute Level of consult: Consult, follow and place orders Assessment and Plan: Assessment: Acute LBP/david LE pain with disc extrusion L3-4. Questionable whether tremors related to findings onmri, perhaps reaction to her pain. Motor/sensory exam grossly intact. Plan: david yue L3-4, pt, pain control. No surgical options at this point. Recommend f/u with [facility] 1-2 weeks. If not improving could also screen her lumbar facets. Flex/ext xrays would also be helpful. Neurology to see to add input regarding her tremors. Chief Complaint: Acute LBP david LE pain/weakness/tremors History is obtained from the patient History of Present Illness: This patient is a 49 year old female who presents with the following condition requiring a hospital admission: Ms griffiths has suffered from chronic LBP. Since last Thursday her pain has steadily increased. Shedenies any new injuries. No bowel/bladder changes. She has had a recent UTI that was treated. No current dysuria/frequency. She reports LE pain david and LE tremors david when upright this also coincides with her severe LBP. Symptoms improve when supine. No history of these complaints. She reports a history of cervical radiculopathy and underwent an acdf at [facility] in 2004. She did well post op. No neck pain/thoracic pain/ UE pain/numbness/weakness. No fevers/chills/weight loss. Past Medical History: Past Medical History Diagnosis Date ??? Migraine, unspecified, without mention of intractable migraine without mention of status migrainosus ??? Herpes zoster without mention of complication Past Surgical History: Past Surgical History Procedure Laterality Date ??? C nonspecific procedure C SECTION X2 Social History: History Social History ??? Marital Status: Spouse Name: N/A Number of Children: N/A ??? Years of Education: N/A Occupational History ??? Not on file. Social History Main Topics ??? Smoking status: Current Every Day Smoker ??? Smokeless tobacco: Not on file Comment: LESS THAN 1 PPD ??? Alcohol Use: Yes Comment: SMALL ??? Drug Use: Not on file ??? Sexual Activity: Not on file Other Topics Concern ??? Not on file Social History Narrative ??? No narrative on file Family History: Family History Problem Relation Age of Onset ??? Diabetes Father HYPERTENSION ALSO ??? Hypertension Mother THYROID ALSO Family history reviewed and updated in [facility] Immunizations: Immunization History Administered Date(s) Administered ??? Mantoux 04/18/2002 Allergies: Allergies Allergen Reactions ??? No Known Allergies Medications: Current Facility-Administered Medications Medication ??? naloxone (NARCAN) injection 0.1-0.4 mg ??? sodium chloride (PF) 0.9% PF flush 3 mL ??? sodium chloride (PF) 0.9% PF flush 3 mL ??? acetaminophen (TYLENOL) tablet 1,000 mg ??? ibuprofen (ADVIL,MOTRIN) tablet 600 mg ??? oxyCODONE (ROXICODONE) immediate release tablet 5-10 mg ??? HYDROmorphone (PF) (DILAUDID) injection 0.3-0.5 mg ??? senna-docusate (SENOKOT-S;PERICOLACE) 8.6-50 MG per tablet 1-2 tablet ??? polyethylene glycol (MIRALAX/GLYCOLAX) packet 17 g ??? ondansetron (ZOFRAN-ODT) disintegrating tablet 4 mg Or ??? ondansetron (ZOFRAN) injection 4 mg ??? hydrOXYzine (ATARAX) tablet 25 mg Or ??? hydrOXYzine (ATARAX) tablet 50 mg ??? DULoxetine (CYMBALTA) DR capsule 120 mg ??? levothyroxine (SYNTHROID, LEVOTHROID) tablet 88 mcg ??? pregabalin (LYRICA) capsule 300 mg ??? varenicline (CHANTIX) tablet 1 mg ??? verapamil (CALAN-SR) CR tablet 120 mg Review of Systems: The Review of Systems is negative other than noted in the HPI Physical Exam: Temp: 97.2 ??F (36.2 ??C) Temp src: Oral BP: 121/67 mmHg Pulse: 82 Heart Rate: 78 Resp: 16 SpO2: 94 % O2 Device: None (Room air) All vitals have been reviewed ttp lower lumbar spine 5/5 LE motors Sensory intact in david LE david tremors noted with dorsiflexion of feet slr increases LBP Down going toes No clonus 5/5 UE motors. Sensory intact in UE. Neg hoffmans. Cervical rom full Data: Lab Results Component Value Date WBC 9.5 10/01/2015 HGB 13.0 10/01/2015 HCT 37.8 10/01/2015 PLT 269 10/01/2015 NA 136 10/01/2015 POTASSIUM 4.5 10/01/2015 CHLORIDE 104 10/01/2015 CO2 24 10/01/2015 BUN 10 10/01/2015 CR 0.76 10/01/2015 GLC 113* 10/01/2015 SED 22* 06/29/2003 AST 25 09/21/2002 ALT 24 09/21/2002 ALKPHOS 84 09/21/2002 BILITOTAL 0.2 09/21/2002 All imaging studies reviewed by me. MRI lumbar spine:central disc extrusion with minimal central stenosis L3-4. Facet arthropathy noted at L3-4. Retrolisthesis L3-4. Remainder of lumbar spine unremarkable. Attestation: I have reviewed today's vital signs, notes, medications, labs and imaging. Kunal Villarreal PA-C, LEEANNE D PIPE LINES SUPERVISOR documented in this encounter ED Notes Lizzy Montes RN - 10/01/2015 1:05 PM CST Pt concerned that her BP is elevated. Pt was assured we will continue to monitor is while she is here. Will address with Florencia. D PIPE LINES SUPERVISOR Andrea Don APRN CNP - 10/01/2015 11:21 AM CST History Chief Complaint Other HPI Mariusz Griffiths is a 49 year old female who presents to the ED with multiple complaints. The patient report that 8 days ago she developed dysuria and low back pain and the following day was diagnosed with a UTI and started on Cipro. Five days ago the patient developed tremor in all four extremities at which point she was evaluated by her primary and told that if they persisted or worsened she needed to be seen in the ED. This morning the patient became diaphoretic, nauseous and had blurred vision, prompting her to come into the ED (now resolved). Here she reports that along with her new onset symptoms this morning she has continued having low bilateral back pain that began about a week ago. This is similar to her typical chronic back pain but feels much more severe than usual. She has been taking ibuprofen the last few days for her pain, with only slight alleviation. The patient has continued having lower extremities only, and states that it has become difficult for her to lift her left leg. She notes that her urinary symptoms have resolved since taking the antibiotics. She denies any fever, chills, vomiting, abdominal pain, diarrhea, chest pain, shortness of breath, cough or cold symptoms, changes in urination, headache, and numbness. Allergies: No known allergies Medications: Duloxetine Levothyroxine sodium Gabapentin Fioricet Lorazepam Nickerson Effexor Zyban Past Medical History: Migraine Herpes Zoster Past Surgical History: C section x 2 Family History: Father- diabetes Mother- hypertension Social History: Marital Status: [2] Smoking status: current every day smoker Alcohol use: yes, small Review of Systems Constitutional: Positive for diaphoresis. Negative for fever and chills. HENT: Negative for congestion, rhinorrhea and sore throat. Eyes: Positive for visual disturbance. Respiratory: Negative for cough and shortness of breath. Cardiovascular: Negative for chest pain. Gastrointestinal: Positive for nausea. Negative for vomiting, abdominal pain and diarrhea. Genitourinary: Negative for dysuria, frequency, hematuria and difficulty urinating. Musculoskeletal: Positive for back pain (low). Neurological: Positive for tremors (all extremities). Negative for numbness and headaches. All other systems reviewed and are negative. Physical Exam Patient Vitals for the past 24 hrs: BP Temp Temp src Pulse Resp SpO2 Height Weight 10/01/15 1113 146/86 mmHg 97.8 ??F (36.6 ??C) Oral 90 20 99 % 1.727 m (5' 7.99) 106.595 kg (235 lb) Physical Exam General: Alert, Mild discomfort, well kept. Obese Eyes: PERRL, conjunctivae pink no scleral icterus or conjunctival injection. EOM's ENT: Moist mucus membranes, posterior oropharynx clear without erythema or exudates, No lymphadenopathy, Normal voice Resp: Lungs clear to auscultation bilaterally, no crackles/rubs/wheezes. Good air movement CV: Normal rate and rhythm, no murmurs/rubs/gallops GI: Abdomen soft and non-distended. Normoactive BS. No tenderness, guarding or rebound, No masses Skin: Warm, dry. No rashes or petechiae Musculoskeletal: No peripheral edema or calf tenderness, Normal gross ROM. Minimal left CVA tenderness. No lumbar spinal tenderness, crepitus, or deformity Neuro: Alert and oriented to person/place/time, normal sensation. Ratcheting with flexion and extension of feet against resistance. Also able to raise lower extremities off the bed slowly and not smoothly. No testable CN deficit. Normal strength of upper extremities. Normal DTR's Psychiatric: Normal affect, cooperative, good eye contact Emergency Department Course Imaging: Radiographic findings were communicated with the patient who voiced understanding of the findings. Lumbar spine MRI w/o contrast At L3-L4 there is a small left central disc extrusion resulting in mild central canal stenosis. Final result per radiology Laboratory: CBC: WNL (WBC 9.5, HGB 13.0, PLT 269) BMP: glucose 113 (H), WNL (Creatinine 0.76) UA: negative Interventions: NS 1L IV Bolus Toradol 30 mg IV Tramadol 50 mg oral Emergency Department Course: Past medical records, nursing notes, and vitals reviewed. (1121) I performed an exam of the patient as documented above. IV inserted and blood drawn. The patient was sent for a MRI while in the emergency department, findings above. (1607) I spoke with Dr. Clemente of neurology who the patient has an appointment with later this week at [facility] (163) I spoke with Dr. Negro sap enterprise portal consultant for neurology (163) I rechecked and updated the patient (170) I spoke with PATRIC Dumont of the hospitalist service Findings and plan explained to the Patient and spouse who consents to admission. Discussed the patient with PATRIC Dumont, who will admit the patient to a observation bed for further monitoring, evaluation, and treatment. Impression & Plan Medical Decision Making: Mariusz Griffiths is a 49 year old female who presented for evaluation of multiple complaints. Themajor complaint presenting today is low back pain with lower extremity weakness. She particularly notes that it feels difficult to raise her left leg. On examination she does have lower extremity ratcheting, particularly in her feet with both flexion and extension. She has non-smooth movement of bilateral lower extremities when raising off the bed as well. She is able to ambulate without obvious difficulty. Deep tendon reflexes were intact. MRI to rule out possible lumbar sacral causes for her symptoms. There is no indication for cord compression, cauda equinas syndrome, or epidural abscess. This does not appear to be infectious in nature. I did speak to Dr. Negro of neurology with who I discussed the patient's symptoms. He felt that this is mostly likely a functional neurologic problem. I discussed observation admission versus waiting for her scheduled appointment with [facility] on Thursday. The patient was concerned enough that she would like to be admitted to the hospital to possibly see neurology this evening or tomorrow. Plan is to admit patient to the observation unit. PATRIC Dumont is accepting. Patient does feel improved after the above medications. Diagnosis: ICD-10-CM 1. Bilateral low back pain without sciatica M54.5 2. Weakness of both lower extremities M62.81 Roxana Chuier 10/01/2015 [facility] EMERGENCY DEPARTMENT I, Roxana Hanna, farideh serving as a scribe at 11:21 AM on 10/01/2015 to document services personally performed by Andrea Don APRN based on my observations and the provider's statements to me. Andrea Don APRN TUBE BLOWER 10/01/15 1746 D PIPE LINES SUPERVISOR Gertrude Herman RN - 10/01/2015 11:15 AM CST ABCs intact. Pt c/o lower back pain x 1 week. Pt went to her PMD last Thursday and was dx with a UTI. Pt started shaking on Thursday and went back to her PMD and was told to follow up with a neurologist. Pt states she has an appointment on Thursday. Pt c/o nausea and blurry vision today. Pt states the back pain is the same. Denies urinary symptoms. Pt's home meds: see epic D PIPE LINES SUPERVISOR documented in this encounter Miscellaneous Notes Plan of Care - Julia Gross RN - 10/03/2015 5:40 PM CST Problem: Goal Outcome Summary Goal: Goal Outcome Summary Outcome: Adequate for Discharge Date Met: 10/03/15 Patient hospitalized for back pain. Pain adequately controlled with Oxycodone and Tylenol. Ambulating independently with cane. VSS. Discharge instructions and medications were reviewed with patient in detail. New medication (Oxycodone 30 tabs) filled here and given to patient at time of discharge. Patient provided contact information for spine surgical center. All questions and concerns were addressed with patient. Patient's providing transport. D PIPE LINES SUPERVISOR Plan of Care - Gerardo Mccurdy, PT - 10/03/2015 4:43 PM CST Problem: Goal Outcome Summary Goal: Goal Outcome Summary PT: Pt reports mild improvement in pain and symptoms today after YUE and performing prone lumbar exercises instructed yesterday. Legs still tremulous with gait activity, but ambulating hallways with cane and SBA, slow gait speed. Issued cane for home, reviewed stairs and activity guidelines. RecommendOP PT follow-up, electronic order placed. Physical Therapy Discharge Summary Reason for therapy discharge: Discharged to home with outpatient therapy. Progress towards therapy goal(s). See goals on Care Plan in [facility] electronic health record for goal details. Goals partially met. Barriers to achieving goals: discharge from facility. Therapy recommendation(s): Continued therapy is recommended. Rationale/Recommendations: OP PT to imrove strength, mobility, andpain management.. D PIPE LINES SUPERVISOR Plan of Care - Hannah Bermudez RN - 10/03/2015 1:45 PM CST Problem: Individualization Goal: Patient Preferences Outcome: Improving Returned from injection -- requested oxy x1 on arrival ---- up to bathroom Voiding without problems-- appetite good resting comfortable between checks D PIPE LINES SUPERVISOR Plan of Care - Rina Josue RN - 10/03/2015 7:36 AM CST Problem: Individualization Goal: Patient Preferences Outcome: Improving Slight improvement to LE tremors, RLE notably improved, LLE still noted. Reports that pain is improved overall and that she gets relief from oxycodone and heat. Up ind, voiding well. Wants to start a stool softener to combat narcotics/constipation. Uneventful night. Slept well between cares. D PIPE LINES SUPERVISOR Plan of Care - Vanessa Sanabria RN - 10/02/2015 10:17 PM CST Problem: Goal Outcome Summary Goal: Goal Outcome Summary Outcome: No Change VSS, back pain 3-6/10, given Atarax x1 + oxycodone x2. Pt reports significant pain relief with meds + heat. Neuros intact, denies blurred vision. Tremors to BLE with marked increase in shakiness to LLE. CMS + pulses intact. EMG this evening, awaiting results. Scheduled for YUE tomorrow. Ambulated in halls with + cane. D PIPE LINES SUPERVISOR Plan of Care - Gerardo Mccurdy, PT - 10/02/2015 4:36 PM CST Problem: Goal Outcome Summary Goal: Goal Outcome Summary PT: Eval completed, treatment initiated. Pt functions indep at baseline, lives with spouse in multi-level home. Pt reports onset of acute on chronic LBP with david LE tremors and weakness of LLE last week. She does endorse coinciding change in activity level, as she returned to the gym and started walking/biking for exercise twice last week prior to onset of symptoms. Pt is currently limited by localized LBP rated 5/10 with standing activity and gait skills, onset of david LE shakiness/tremors with standing and gait noted which impaired her overall stability, up with CGA/SBA. Pt is currently benefitting from use of cane with gait skills, issued to room. Weakness at L ankle dorsiflexion noted, positive dural straight leg raise test on L. Noted small L3-4 disc extrusion on MRI findings and plan for ESItomorrow. Instructed pt in prone positioning exercise to help manage disc bulge, pt reports improvement in back pain with this, encouraged to continue periodically and attempt gait afterward with [facility] staff. PT will check back tomorrow. Recommend d/c home with spouse support and OP PT, may benefit fromcane with gait pending improvement in pain and unsteadiness. D PIPE LINES SUPERVISOR Utilization Review - Darshan Marley DO - 10/02/2015 3:51 PM CST [facility] Admission Status; Concurrent Review Determination Admission Date: 10/01/2015 11:17 AM Under the authority of the Utilization Management Committee, the utilization review process indicated a secondary review on the above patient. The review outcome is based on review of the medical records, discussions with staff, and applying clinical experience noted on the date of the review. (x) Observation Status Appropriate - This patient does not meet hospital inpatient criteria and is placed in observation status. If this patient's primary payer is Medicare and was admitted as an inpatient, Condition Code 44 should be used and patient status changed to observation. RATIONALE FOR DETERMINATION 49 year old female presented to the [facility] ED yesterday with tremor and left lowerextremity pain. MRI of the lumbar spine done on this admission showed a small central disk extrusionat L2-3. Neurology was consulted and will perform an EMG to assess the tremor. Spine surgery was consulted and ordered an YUE. She is not requiring any parenteral analgesia. At the time of this review,the patient is stable, has improved, and does not meet medical necessity for inpatient hospitalization. The severity of illness, intensity of service provided, expected LOS and risk for adverse outcome make the care appropriate for further observation; however, doesn't meet criteria for hospital inpatient admission. The information on this document is developed by the utilization review team in order for the business office to ensure compliance. This only denotes the appropriateness of proper admission status and does not reflect the quality of care rendered. The definitions of Inpatient Status and Observation Status used in making the determination above are those provided in the CMS Coverage Manual, Chapter 1 and Chapter 6, section 70.4. Sincerely, Darshan Marley DO MPH Physician Advisor Utilization Review [facility]. D PIPE LINES SUPERVISOR Plan of Care - Jaci Pearce RN - 10/02/2015 2:49 PM CST Problem: Goal Outcome Summary Goal: Goal Outcome Summary Outcome: No Change Ambulatory Status: Pt up with SBA. Calls appropriately. VS: AFVSS. Pain: 3-6/10 in low back- scheduled tylenol given and prn oxycodone 10mg given x 1 and atarax 25mg given x 1. Resp: LS clear. GI: Denies nausea. Good appetite and on regular diet. BS active. Passing flatus. Last BM 09/30- no onscheduled BM meds- will continue to monitor. : Voiding adequate amounts without difficulty- per pt report, baseline large incontinence s/p bladder mesh removal. Tx: Plans for YUE tomorrow and EMG of LLE. Neuros- pronounced LLE weakness- all other neuros WNL. Consults: Neuro and spine. PT. Disposition: TBD D PIPE LINES SUPERVISOR Plan of Care - Rina Josue RN - 10/02/2015 7:49 AM CST Problem: Individualization Goal: Patient Preferences Outcome: No Change Uneventful night. Continues to c/o back pain 7/10 sometimes radiating into L leg. Relief from oxycodone & rest. Worse with movement. Q4* Neuros: blurred vision, LE tremors with movement. Weak DAVID dorsiflex. Consults today: PT, Neuro, Spine. Pt & spouse updated & understand POC. Voiding well. VSS. D PIPE LINES SUPERVISOR Plan of Care - Meseret Nieto RN - 10/01/2015 10:50 PM CST Problem: Goal Outcome Summary Goal: Goal Outcome Summary Outcome: No Change VSS. Alert and [place]. Up with SB assist to bedside commode. Pain 5-6/10 in back controlled with Oxy, Tylenol and atarax. neuro checks Q4 intact. But weak dorsi and plantar flexion. D PIPE LINES SUPERVISOR Pharmacy-Admission Medication History - Darshan Pepe RPH - 10/01/2015 5:38 PM FIELD PIPE LINES SUPERVISOR Admission medication history interview status for this patient is complete. See [facility] admission navigator for allergy information, prior to admission medications and immunization status. Medication history interview source(s):Patient Medication history resources (including written lists, pill bottles, clinic record):None Changes made to M[employer]DER medication list: Added: LuisaaMariano SR, Chantix, cymbalta, Synthroid Deleted: effexor, fiorcet, gabapentin, norco, ativan, zyban Changed: none Actions taken by pharmacist (provider contacted, etc):None Additional medication history information:None Medication reconciliation/reorder completed by provider prior to medication history? No Prior to Admission medications Medication Sig Last Dose Taking? Auth Provider Pregabalin (LYRICA PO) Take 300 mg by mouth 2 times daily 10/01/2015 at AM Yes Unknown, Entered By History Varenicline Tartrate (CHANTIX PO) Take 1 mg by mouth 2 times daily 10/01/2015 at AM Yes Unknown, Entered By History Verapamil HCl (CALAN SR PO) Take 120 mg by mouth every morning 10/01/2015 at AM Yes Unknown, Entered By History DULoxetine HCl (CYMBALTA PO) Take 120 mg by mouth every evening 09/30/2015 at Unknown time Yes Reported, Patient LEVOTHYROXINE SODIUM PO Take 88 mcg by mouth daily 10/01/2015 at AM Yes Reported, Patient D PIPE LINES SUPERVISOR documented in this encounter Plan of Treatment Scheduled Orders Name Type Priority Associated Diagnoses Order S chedule EMG Neurology Routine One Time for 1 Occurrences starting 10/02/2015 unti l 10/02/2015 Scheduled Referrals Name Type Priority Associated Diagnoses Order S chedule Dme Referral Referral Routine Acute low back pain Ordered: 10/03/2015 PHYSICAL THERAPY Referral Routine Low back pain potentiall y Ordered: 10/03/2015 REFERRAL associated with radiculopathy documented as of this encounter Procedures Procedure Name Priority Date/Time Associated Comments Diagnosis XR LUMBAR SACRAL Routine 10/03/2015 10:47 Results for this TRANSFORAMINAL INJ AM FIELD PIPE LINES SUPERVISOR procedure are in RIGHT the results section. XR LUMBAR SACRAL Routine 10/03/2015 10:33 Results for this TRANSFORMINAL INJ LEFT AM FIELD PIPE LINES SUPERVISOR proce dure are in the results section. INR Routine 10/03/2015 6:55 AM Bilateral low back Res ults for this FIELD PIPE LINES SUPERVISOR pain without procedure are i n sciatica the results section. MR LUMBAR SPINE W/O STAT 10/01/2015 2:45 PM Re sults for this CONTRAST FIELD PIPE LINES SUPERVISOR procedure are i n the results section. URINE MACROSCOPIC WITH Routine 10/01/2015 12:13 R esults for this REFLEX TO MICRO PM FIELD PIPE LINES SUPERVISOR procedure ar e in the results section. BASIC METABOLIC PANEL STAT 10/01/2015 11:55 Re sults for this AM FIELD PIPE LINES SUPERVISOR procedure are i n the results section. CBC WITH PLATELETS STAT 10/01/2015 11:55 Resul ts for this AM FIELD PIPE LINES SUPERVISOR procedure are i n the results section. documented in this encounter Results XR Lumbar Transforaminal Inj Single (10/03/2015 10:47 AM FIELD PIPE LINES SUPERVISOR) Anatomical Region Laterality Modality Spine Radio Fluoroscopy Specimen (Source) Anatomical Location Collection Method / Collectio n Time Received Time / Laterality Volume Impressions 10/03/2015 10:59 AM FIELD PIPE LINES SUPERVISOR Impression: ??Technically successful transforaminal lumbar epidural steroid injection with no initial pain r elief. skilled nursing results pending. JOSE WELLS PA-C Narrative 10/03/2015 10:59 AM FIELD PIPE LINES SUPERVISOR XR LUMBAR TRANSFORAMINAL ADDITIONAL, XR LUMBAR TRANSFORAMINAL INJ SINGLE ? 10/03/2015 10:33 AM ?? History: ??Degenerative disc disease. Re quest for bilateral L3-4 transforaminal epidural steroid injectio ns. Procedure: ??The risks (bleeding, infect ion, reaction to contrast and medications) and benefits of the procedu re were explained to the patient and consent was obtained. ??in miguel angel sterile technique and fluoroscopic guidance a #22 gauge spinal needle was placed into the bilateral L3-4 foramen using a posterior - lateral approach. ??A small amount of contrast was injected confirmi ng satisfactory position of the needle tips. ??30 mg of dexamethason e mixed with 5 mL of lidocaine 1% were injected, split between each sit e ??No initial complication. ?? Fluoroscopy time: 0.4 minutes The patient's pain levels (0-10 scale) w ere as follows: ? PRE INJECTION ? Low back ?5 ? Right leg ? 0 ? Left leg ?5 ? POST INJECTION Low back ? 6 Right leg ?0 Left leg ? 8 ?? Procedure Note Jose Wells PA-C - 10/03/2015F ormatting of this note might be different from the original. XR LUMBAR TRANSFORAMINAL ADDITIONAL, XR LUMBAR TRANSFORAMINAL INJ SINGLE 10/03/2015 10:33 AM History: Degenerative disc disease. Requ est for bilateral L3-4 transforaminal epidural steroid injectio ns. Procedure: The risks (bleeding, infectio n, reaction to contrast and medications) and benefits of the procedu re were explained to the patient and consent was obtained. Using sterile technique and fluoroscopic guidance a #22 gauge spinal needle was placed into the bilateral L3-4 foramen using a posterior - lateral approach. A small amount of contrast was injected confirmi ng satisfactory position of the needle tips. 30 mg of dexamethasone mixed with 5 mL of lidocaine 1% were injected, split between each sit e No initial complication. Fluoroscopy time: 0.4 minutes The patient's pain levels (0-10 scale) w ere as follows: PRE INJECTION Low back 5 Right leg 0 Left leg 5 POST INJECTION Low back 6 Right leg 0 Left leg 8 Impression: Technically successful trans foraminal lumbar epidural steroid injection with no initial pain r elief. skilled nursing results pending. JOSE WELLS PA-C Kunal Villarreal PA-C IMG DIAGNOSTIC IMAGING ORDER NATALY XR Epidural Transforaminal Lumbar Addl (10/03/2015 10:33 AM FIELD PIPE LINES SUPERVISOR) Anatomical Region Laterality Modality Spine Radio Fluoroscopy Specimen (Source) Anatomical Location Collection Method / Collectio n Time Received Time / Laterality Volume Impressions 10/03/2015 10:59 AM FIELD PIPE LINES SUPERVISOR Impression: ??Technically successful transforaminal lumbar epidural steroid injection with no initial pain r elief. terminal operator results pending. JOSE WELLS PA-C Narrative 10/03/2015 10:59 AM FIELD PIPE LINES SUPERVISOR XR LUMBAR TRANSFORAMINAL ADDITIONAL, XR LUMBAR TRANSFORAMINAL INJ SINGLE ? 10/03/2015 10:33 AM ?? History: ??Degenerative disc disease. Re quest for bilateral L3-4 transforaminal epidural steroid injectio ns. Procedure: ??The risks (bleeding, infect ion, reaction to contrast and medications) and benefits of the procedu re were explained to the patient and consent was obtained. ??in miguel angel sterile technique and fluoroscopic guidance a #22 gauge spinal needle was placed into the bilateral L3-4 foramen using a posterior - lateral approach. ??A small amount of contrast was injected confirmi ng satisfactory position of the needle tips. ??30 mg of dexamethason e mixed with 5 mL of lidocaine 1% were injected, split between each sit e ??No initial complication. ?? Fluoroscopy time: 0.4 minutes The patient's pain levels (0-10 scale) w ere as follows: ? PRE INJECTION ? Low back ?5 ? Right leg ? 0 ? Left leg ?5 ? POST INJECTION Low back ? 6 Right leg ?0 Left leg ? 8 ?? Procedure Note Jose Wells PA-C - 10/03/2015F ormatting of this note might be different from the original. XR LUMBAR TRANSFORAMINAL ADDITIONAL, XR LUMBAR TRANSFORAMINAL INJ SINGLE 10/03/2015 10:33 AM History: Degenerative disc disease. Requ est for bilateral L3-4 transforaminal epidural steroid injectio ns. Procedure: The risks (bleeding, infectio n, reaction to contrast and medications) and benefits of the procedu re were explained to the patient and consent was obtained. Using sterile technique and fluoroscopic guidance a #22 gauge spinal needle was placed into the bilateral L3-4 foramen using a posterior - lateral approach. A small amount of contrast was injected confirmi ng satisfactory position of the needle tips. 30 mg of dexamethasone mixed with 5 mL of lidocaine 1% were injected, split between each sit e No initial complication. Fluoroscopy time: 0.4 minutes The patient's pain levels (0-10 scale) w ere as follows: PRE INJECTION Low back 5 Right leg 0 Left leg 5 POST INJECTION Low back 6 Right leg 0 Left leg 8 Impression: Technically successful trans foraminal lumbar epidural steroid injection with no initial pain r elief. terminal operator results pending. JOSE WELLS PA-C Aamir Neville MD IMG DIAGNOSTIC IMAGING ORDER NATALY INR (10/03/2015 6:55 AM FIELD PIPE LINES SUPERVISOR) P athologist Signature INR 0.98 0.86 - 1.14 [facility] Specimen Anatomical Collection Method Collection Time Receive d Time (Source) Location / / Volume Laterality Blood specimen 10/03/2015 6:55 AM 016 7:12 (specimen) FIELD PIPE LINES SUPERVISOR AM FIELD PIPE LINES SUPERVISOR Kunal Villarreal PA-C LAB - BLOOD ORDERABLES Performing Organization Address City/State/ZIP Code Phon e Number M [facility] [address], [place] [address] [facility] [address], [place] [address] [facility] [phone] Lumbar spine MRI w/o contrast (10/01/2015 2:45 PM FIELD PIPE LINES SUPERVISOR) Anatomical Region Laterality Modality Spine, SUBRAD MR MSK, UMP MR SPINE Magne tic Resonance Specimen (Source) Anatomical Location Collection Method / Collectio n Time Received Time / Laterality Volume Impressions 10/01/2015 3:07 PM FIELD PIPE LINES SUPERVISOR IMPRESSION: At L3-L4 there is a small left central disc extrusion resulting in mild central canal stenosis . YEMI COATES MD Narrative 10/01/2015 3:07 PM FIELD PIPE LINES SUPERVISOR MRI LUMBAR SPINE WITHOUT CONTRAST ?? 10/01/2015 2:45 PM HISTORY: Eight days of low back pain wit h left lower extremity pain and weakness. COMPARISON: None. TECHNIQUE: Sagittal T1, T2, and STIR, an d transverse proton density and T2-weighted images were obtained thr ough the lumbar spine. FINDINGS: Numbering of the levels is bas ed on what appear to be five lumbar type vertebral bodies. Vertebral body alignment is normal. No fracture is seen. No pars interarticular is defect is demonstrated. No osseous lesion is seen. No abnormal alie ow signal intensity is identified. The conus medullaris termina irene at the level of the L1-L2 disc. No intrathecal abnormality is seen . The adjacent soft tissues are unremarkable. Findings by specific level: T12-L1: The disc and facet joints are no rmal. No stenosis is seen. L1-L2: The disc and facet joints are nor mal. No stenosis is seen. L2-L3: The disc and facet joints are nor mal. No stenosis is seen. L3-L4: There is mild disc dehydration. T he disc height is well-preserved. There is a small broad-b ased left central disc extrusion. This results in only mild mas s effect upon the thecal sac with a mild degree of central canal sten osis. No nerve root displacement or foraminal narrowing is s een. There are mild degenerative changes in the facet joints . L4-L5: The disc and facet joints are nor mal. No stenosis is seen. L5-S1: The disc space is normal with no herniation or stenosis seen. There are moderate degenerative changes in the facet joints. Procedure Note Yemi Coates MD - 10/01/2015Fo rmatting of this note might be different from the original. MRI LUMBAR SPINE WITHOUT CONTRAST 016 2:45 PM HISTORY: Eight days of low back pain wit h left lower extremity pain and weakness. COMPARISON: None. TECHNIQUE: Sagittal T1, T2, and STIR, an d transverse proton density and T2-weighted images were obtained thr ough the lumbar spine. FINDINGS: Numbering of the levels is bas ed on what appear to be five lumbar type vertebral bodies. Vertebral body alignment is normal. No fracture is seen. No pars interarticular is defect is demonstrated. No osseous lesion is seen. No abnormal alie ow signal intensity is identified. The conus medullaris termina irene at the level of the L1-L2 disc. No intrathecal abnormality is seen . The adjacent soft tissues are unremarkable. Findings by specific level: T12-L1: The disc and facet joints are no rmal. No stenosis is seen. L1-L2: The disc and facet joints are nor mal. No stenosis is seen. L2-L3: The disc and facet joints are nor mal. No stenosis is seen. L3-L4: There is mild disc dehydration. T he disc height is well-preserved. There is a small broad-b ased left central disc extrusion. This results in only mild mas s effect upon the thecal sac with a mild degree of central canal sten osis. No nerve root displacement or foraminal narrowing is s een. There are mild degenerative changes in the facet joints . L4-L5: The disc and facet joints are nor mal. No stenosis is seen. L5-S1: The disc space is normal with no herniation or stenosis seen. There are moderate degenerative changes in the facet joints. IMPRESSION: At L3-L4 there is a small le ft central disc extrusion resulting in mild central canal stenosis . YEMI COATES MD Andrea Don HOTEL DINING ROOM CASHIER [facility] IMG MRI ORDERABLES UA reflex to Microscopic (10/01/2015 12:13 PM FIELD PIPE LINES SUPERVISOR) [facility] Method Time Signature Color Urine Straw [facility] Appearance Urine Clear [facility] Glucose Urine Negative NEG mg/dL [facility] Bilirubin Urine Negative NEG [facility] Ketones Urine Negative NEG mg/dL [facility] Specific [place] 1.003 1.003 - [place] Urine 1.035 [facility] Blood Urine Negative NEG [facility] pH Urine 6.5 5.0 - 7.0 [place] pH [facility] Protein Albumin Negative NEG mg/dL [facility] Urobilinogen Normal 0.0 - 2.0 [place] mg/dL mg/dL [facility] Nitrite Urine Negative NEG [facility] Leukocyte Negative NEG [place] Esterase Urine [facility] Source Midstream [facility] Specimen Anatomical Collection Method Collection Time Receive d Time (Source) Location / / Volume Laterality Urine specimen URINE SPECIMEN 10/01/2015 12:13 016 (specimen) OBTAINED BY CLEAN PM FIELD PIPE LINES SUPERVISOR 12:[address] CATCH PROCEDURE / Unknown Andrea Don APRN [facility] - URINE ORDERABLES Performing Organization Address City/[facility]/ZIP [facility] Phon e Number M [facility] [address], [place] [address] [facility] [address], [place] [address] [facility] [phone] (ABNORMAL) Basic metabolic panel (10/01/2015 11:55 AM FIELD PIPE LINES SUPERVISOR) athologist Signature Sodium 136 133 - 144 [facility] mmol/L [facility] Potassium 4.5 3.4 - 5.3 [facility] mmol/L [facility] Comment: Specimen slightly hemolyzed, po tassium may be falsely elevated Chloride 104 94 - 109 mmol/L [facility] Carbon Dioxide 24 20 - 32 mmol/L [facility] Anion Gap 8 3 - 14 mmol/L [facility] Glucose 113 (H) 70 - 99 mg/dL [facility] Urea Nitrogen 10 7 - 30 mg/dL [facility] Creatinine 0.76 0.52 - 1.04 mg/dL [facility] GFR Estimate 81 >60 mL/min/1.7m2 [facility] Comment: Non GFR Calc GFR Estimate If Black >90 >60 mL/min/1.7m2 [facility] GFR Calc HOSP ITAL Calcium 8.9 8.5 - 10.1 mg/dL [facility] Specimen Anatomical Collection Method Collection Time Receive d Time (Source) Location / / Volume Laterality Blood specimen 10/01/2015 11:55 6 (specimen) AM FIELD PIPE LINES SUPERVISOR 12:24 PM FIELD PIPE LINES SUPERVISOR Andrea Don APRN [facility] - BLOOD ORDERABLES Performing Organization Address City/[facility]/ZIP [facility] Phon e Number M [facility] [address], [place] [address] [facility] [address], [place] [address] [facility] [phone] CBC (platelets, no diff) (10/01/2015 11:55 AM FIELD PIPE LINES SUPERVISOR) P athologist Signature WBC 9.5 4.0 - 11.0 [place] 10e9/L [facility] RBC Count 4.32 3.8 - 5.2 [place] 10e12/L [facility] Hemoglobin 13.0 11.7 - [place] 15.7 g/dL [facility] Hematocrit 37.8 35.0 - [place] 47.0 % [facility] MCV 88 78 - 100 [facility] MCH 30.1 26.5 - [place] 33.0 pg [facility] MCHC 34.4 31.5 - [place] 36.5 g/dL [facility] RDW 14.6 10.0 - [place] 15.0 % [facility] Platelet Count 269 150 - 450 [address] [facility] Specimen Anatomical Collection Method Collection Time Receive d Time (Source) Location / / Volume Laterality Blood specimen 10/01/2015 11:55 6 (specimen) AM FIELD PIPE LINES SUPERVISOR 12:24 PM FIELD PIPE LINES SUPERVISOR Andrea Don APRN [facility] - BLOOD ORDERABLES Performing Organization Address City/State/ZIP Code Phon e Number M [place] [address], [place] [address] [facility] [phone] documented in this encounter Visit Diagnoses Diagnosis Acute low back pain - Primary Lumbago Bilateral low back pain without sciatica Weakness of both lower extremities Acute low back pain Lumbago Constipation, unspecified constipation t ype Low back pain potentially associated wit h radiculopathy Low back pain potentially associated wit h radiculopathy documented in this encounter Administered Medications Inactive Administered Medications - up to 3 most recent administrations Medication Order MAR Action Action Date Dose Rate Site 0.9% sodium chloride BOLUS New Bag 10/01/2015 11:59 AM 1,000 mLs 2000 mL/hr Intravenous, 1,000 mL, FIELD PIPE LINES SUPERVISOR ONCE, at 2,000 mL/hr, Administer over 30 Minutes, On Thu10/01/15 at 1138, For 1 dose acetaminophen (TYLENOL) tablet 1,000 mg Given 10/03/2015 3:57 PM FIELD PIPE LINES SUPERVISOR 1,000 mg 1,000 mg, Oral, 3 TIMES DAILY, First dose on Thu10/01/15 at 2200, Alternate ibuprofen (if ordered) with acetaminophen. Maximum acetaminophen dose from all sources = 75 mg/kg/day not to exceed 4 gram Given 10/03/2015 8:10 AM FIELD PIPE LINES SUPERVISOR 1,000 mg Given 10/02/2015 9:40 PM FIELD PIPE LINES SUPERVISOR 1,000 mg dexamethasone (DECADRON) 10 MG/ML inject ion Starting on Thu10/03/15 at 1000, For 1 dose, NUNU MCCOY CKI: cabinet override dexamethasone (DECADRON) injection 30 mg Given 10/03/2015 10:21 AM FIELD PIPE LINES SUPERVISOR 10 mg 30 mg, Intravenous, EVERY 6 HOURS, First dose on Thu10/03/15 at 1030 dexamethasone (DECADRON) injection 30 mg Given 10/03/2015 10:44 AM FIELD PIPE LINES SUPERVISOR 30 mg 30 mg, INTRA-ARTICULAR, ONCE, On Thu10/03/15 at 1045, For 1 dose, Given by Jose Simental DULoxetine (CYMBALTA) DR capsule 120 mg Given 10/02/2015 9:39 PM FIELD PIPE LINES SUPERVISOR 120 mg 120 mg, Oral, EVERY EVENING, First dose on Thu10/01/15 at 2045 Given 10/01/2015 9:16 PM FIELD PIPE LINES SUPERVISOR 120 mg hydrOXYzine (ATARAX) tablet 25 mg Given 10/02/2015 9:39 PM FIELD PIPE LINES SUPERVISOR 25 mg 25 mg, Oral, EVERY 6 HOURS PRN, other, adjuvant pain, Starting on Thu10/01/15 at 1821 Given 10/02/2015 12:22 PM FIELD PIPE LINES SUPERVISOR 25 mg Given 10/02/2015 4:41 AM FIELD PIPE LINES SUPERVISOR 25 mg hydrOXYzine (ATARAX) tablet 50 mg Given 10/01/2015 9:16 PM FIELD PIPE LINES SUPERVISOR 50 mg 50 mg, Oral, EVERY 6 HOURS PRN, other, adjuvant pain, Starting on Thu10/01/15 at 1821 iopamidol (ISOVUE-M 200) 41% Given by Renetta 10/03/2015 10:34 AM FIELD PIPE LINES SUPERVISOR 3 mLs solution 10 mL 10 mL, EPIDURAL, ONCE, On Thu10/03/15 at 1045, For 1 dose ketorolac (TORADOL) injection 30 mg Given 10/01/2015 12:00 PM FIELD PIPE LINES SUPERVISOR 30 mg 30 mg, Intravenous, ONCE, On Thu10/01/15 at 1138, For 1 dose levothyroxine (SYNTHROID, LEVOTHROID) tablet Given 8:10 AM FIELD PIPE LINES SUPERVISOR 88 mcg 88 mcg 88 mcg, Oral, DAILY, First dose on Thu10/02/15 at 0900 Given 10/02/2015 9:02 AM FIELD PIPE LINES SUPERVISOR 88 mcg lidocaine (PF) (XYLOCAINE) 1 % injection Starting on Thu10/03/15 at 1000, For 1 dose, NUNU MCCOY CKI: cabinet override Lidocaine 1 % injection 10 mL Given 10/03/2015 10:22 AM FIELD PIPE LINES SUPERVISOR 10 mLs 10 mL, Intradermal, ONCE, On Thu10/03/15 at 1030, For 1 dose Lidocaine 1 % injection 5 mL Given 10/03/2015 10:23 AM FIELD PIPE LINES SUPERVISOR 5 mLs 5 mL, Intradermal, ONCE, On Thu10/03/15 at 1030, For 1 dose oxyCODONE (ROXICODONE) immediate release Given 10/03/2015 3:57 P M FIELD PIPE LINES SUPERVISOR 10 mg tablet 5-10 mg 5-10 mg, Oral, EVERY 3 HOURS PRN, moderate to severe pain, Starting on Thu10/01/15 at 1821, If age greater than 65 use lower dose for first time use. Given 10/03/2015 10:43 AM FIELD PIPE LINES SUPERVISOR 10 mg Given 10/03/2015 6:27 AM FIELD PIPE LINES SUPERVISOR 10 mg pregabalin (LYRICA) capsule 300 mg Given 10/03/2015 8:11 AM FIELD PIPE LINES SUPERVISOR 300 mg 300 mg, Oral, 2 TIMES DAILY, First dose on Thu10/01/15 at 2100 Given 10/02/2015 9:39 PM FIELD PIPE LINES SUPERVISOR 300 mg Given 10/02/2015 9:01 AM FIELD PIPE LINES SUPERVISOR 300 mg senna-docusate (SENOKOT-S;PERICOLACE) Given 10/03/2015 8:[address] 1 tablet 8.6-50 MG per tablet 1-2 tablet 1-2 tablet, Oral, 2 TIMES DAILY PRN, constipation , Starting on Thu10/01/15 at 1821, If no bowel movement in 24 hours, increase to 2 tablets PO BID. Hold for loose stools. This is the first step of a three step constipation treatment protocol. sodium chloride (PF) 0.9% PF flush 3 mL Given 10/02/2015 6:13 PM FIELD PIPE LINES SUPERVISOR 3 mLs 3 mL, Intracatheter, EVERY 8 HOURS, First dose on Thu10/01/15 at 1830, And Q1H PRN, to lock peripheral IV dormant line. Given 10/02/2015 9:03 AM FIELD PIPE LINES SUPERVISOR 3 mLs Given 10/02/2015 4:42 AM FIELD PIPE LINES SUPERVISOR 3 mLs traMADol (ULTRAM) tablet 50 mg Given 10/01/2015 2:47 PM FIELD PIPE LINES SUPERVISOR 50 mg 50 mg, Oral, ONCE, On Thu10/01/15 at 1410, For 1 dose varenicline (CHANTIX) tablet 1 mg Given 10/03/2015 8:10 AM FIELD PIPE LINES SUPERVISOR 1 mg 1 mg, Oral, 2 TIMES DAILY, First dose on Thu10/01/15 at 2100 Given 10/02/2015 9:40 PM FIELD PIPE LINES SUPERVISOR 1 mg Given 10/02/2015 9:02 AM FIELD PIPE LINES SUPERVISOR 1 mg verapamil (CALAN-SR) CR tablet 120 mg Given 10/03/2015 8:11 AM FIELD PIPE LINES SUPERVISOR 120 mg 120 mg, Oral, EVERY MORNING, First dose on Thu10/02/15 at 0900 Given 10/02/2015 9:01 AM FIELD PIPE LINES SUPERVISOR 120 mg documented in this encounter Active and Recently Administered Medications Times are shown in FIELD PIPE LINES SUPERVISOR. Scheduled Medication Order 10/01/2015 10/02/2015 10/03/2015 0.9% sodium chloride BOLUS (COMPLETED) 1159 (New Bag - Provider: Lizzy Montes, BRAYDON)1657 (Stopped - Provider: Luke Rodriguez, BRAYDON) Intravenous, 1,000 mL, ONCE, at 2,000 mL /hr, for 30 Minutes, Thu10/01/15 at 1138, For 1 dose acetaminophen (TYLENOL) tablet 1,000 mg 2116 (Given - Provider: Marlyn Negron LPN) 0901 (Given - Provider: Kemal Powell)1635 (Given - Provider: Gertrude Ghosh LPN)2140 (Given - Provider: Gertrude Ghosh LPN) 0810 (Given - Provider: Richelle Rebollar LPN)1557 (Given - Provider: Julia Gross RN) 1,000 mg, Oral, 3 TIMES DAILY, First dos e on Thu10/01/15 at 2200, Alternate ibuprofen (if ordered) with acetaminophen. Maximum acetaminophen dose from all sources = 75 mg/kg/day not to exceed 4 gram dexamethasone (DECADRON) injection 30 mg (CANCELED) 1021 (Given - Provider: Doris Mccoy RN - Comment: given by Jose SIMENTAL) 30 mg, Intravenous, EVERY 6 HOURS, First dose on Thu10/03/15 at 1030 dexamethasone (DECADRON) injection 30 mg (COMPLETED) 1044 (Given - Provider: Doris Mccoy RN - Comment: given by Jose Simental. Not given IV as previously documented) 30 mg, INTRA-ARTICULAR, ONCE, Thu 6 at 1045, For 1 dose, Given by Jose Simental DULoxetine (CYMBALTA) DR capsule 120 mg (CANCELED) 211 6 (Given - Provider: Marlyn Negron LPN) 2138 (Given - Provider: Gertrude Ghosh LPN) 120 mg, Oral, EVERY EVENING, First dose on Thu10/01/15 at 2045 iopamidol (ISOVUE-M 200) 41% solution 10 mL (COMPLETED) 1034 (Given by Other - Provider: Deven Jaime - Comment: by Luis) 10 mL, EPIDURAL, ONCE, Thu10/03/15 at 1045, For 1 dose ketorolac (TORADOL) injection 30 mg (COMPLETED) 1200 ( Given - Provider: Lizzy Montes RN) 30 mg, Intravenous, ONCE, Thu10/01/15 at 1138, For 1 dose levothyroxine (SYNTHROID, LEVOTHROID) tablet 88 mcg (CANCELE D) 0902 (Given - Provider: Jaci Pearce RN) 0810 (Given - Provider: Richelle Rebollar LPN) 88 mcg, Oral, DAILY, First dose on Thu10/02/15 at 0900 Lidocaine 1 % injection 10 mL (COMPLETED) 1022 (Given - Provider: Doris Mccoy RN - Comment: given by jose SIMENTAL) 10 mL, Intradermal, ONCE, Thu10/03/15 at 1030, For 1 dose Lidocaine 1 % injection 5 mL (COMPLETED) 1023 (Given - Provider: Doris Mccoy RN - Comment: given by Jose SIMENTAL) 5 mL, Intradermal, ONCE, Thu10/03/15 at 1030, For 1 dose pregabalin (LYRICA) capsule 300 mg (CANCELED) 2130 (Gi sonny - Provider: Marlyn Negron LPN) 09 (Given - Provider: Kemal Powell)2138 (Given - Provider: Gertrude Ghosh LPN) 0811 (Given - Provider: Richelle Rebollar LPN) 300 mg, Oral, 2 TIMES DAILY, First dose on Thu10/01/15 at 2100 sodium chloride (PF) 0.9% PF flush 3 mL (CANCELED) 190 3 (Given - Provider: Meseret Nieto RN) 0442 (Given - Provider: Rina sanchez RN)0903 (Given - Provider: Jaci Pearce, BRAYDON)0936 (Canceled Entry - Provider: Jaci Pearce RN)1813 (Given - Provider: Vanessa Sanabria RN) 0628 (Not Given - Provider: Rina Josue, BRAYDON - Reason: Patient sleeping)1258 (Canceled Entry - Provider: Richelle Rebollar LPN) 3 mL, Intracatheter, EVERY 8 HOURS, Firs t dose on Thu10/01/15 at 1830, And Q1H PRN, to lock peripheral IV dormant line. traMADol (ULTRAM) tablet 50 mg (COMPLETED) 144 (Given - Provider: Lizzy Montes, BRAYDON) 50 mg, Oral, ONCE, Thu10/01/15 at 1410, For 1 dose varenicline (CHANTIX) tablet 1 mg (CANCELED) 2129 (Giv en - Provider: Marlyn Negron LPN) 09 (Given - Provider: Kemal Powell)2139 (Given - Provider: Gertrude Ghosh LPN) 0810 (Given - Provider: Richelle Rebollar LPN) 1 mg, Oral, 2 TIMES DAILY, First dose on Thu10/01/15 at 2100 verapamil (CALAN-SR) CR tablet 120 mg (CANCELED) 900 (Given - Provider: Jaci Pearce RN) 0811 (Given - Provider: Richelle Rebollar LPN) 120 mg, Oral, EVERY MORNING, First dose on Thu10/02/15 at 0900 PRN Medication Order 10/01/2015 10/02/2015 10/03/2015 hydrOXYzine (ATARAX) tablet 25 mg (CANCELED) 2115 (See Alternative - Provider: Marlyn Negron LPN) 044 (Given - Provider: Rina sanchez RN)122 (Given - Provider: Jacy Gutierres LPN)2138 (Given - Provider: Gertrude Ghosh LPN) 25 mg, Oral, EVERY 6 HOURS PRN, other, a djuvant pain, Starting 10/01/15 at 1821 hydrOXYzine (ATARAX) tablet 50 mg (CANCELED) 2115 (Giv en - Provider: Marlyn Negron LPN) 440 (See Alternative - Provider: Kalpesh Josue RN)122 (See Alternative - Provider: Jacy Gutierres LPN)2138 (See Alternative - Provider: Gertrude Ghosh LPN) 50 mg, Oral, EVERY 6 HOURS PRN, other, a djuvant pain, Starting 10/01/15 at 1821 ibuprofen (ADVIL,MOTRIN) tablet 600 mg 600 mg, Oral, EVERY 6 HOURS PRN, other, mild pain, Starting 10/01/15 at 1821, Alternate acetaminophen (if ordered) with ibuprofen oxyCODONE (ROXICODONE) immediate release tablet 5-10 m g 1902 (Given - Provider: Meseret Nieto RN)2249 (Given - Provider: Marlyn Negron LPN) 044 (Given - Provider: Rina Josue RN)122 (Given - Provider: Jacy Gutierres LPN)1635 (Given - Provider: Gertrude Ghosh LPN)213 (Given - Provider: Gertrude Ghosh LPN) 0627 (Given - Provider: Rina sanchez RN)1043 (Given - Provider: Richelle Rebollar LPN)1557 (Given - Provider: Julia Gross RN) 5-10 mg, Oral, EVERY 3 HOURS PRN, modera te to severe pain, Starting 10/01/15 at 1821, If age greater than 65 use lower dose for first time use. senna-docusate (SENOKOT-S;PERICOLACE) 8. 6-50 MG per tablet 1-2 tablet (CANCELED) 0810 (Given - Provid er: Richelle Rebollar LPN) 1-2 tablet, Oral, 2 TIMES DAILY PRN, con stipation , Starting 10/01/15 at 1821, If no bowel movement in 24 hours, increase to 2 tablets PO BID. Hold for loose stools. This is the first step of a three step constipation treatment protocol. documented in this encounter Care Teams Assembly Line Upholsterer Relationship Specialty Start Date End Date Harriet Haley MD PCP - General Physician Early Intervention Specialist 10/01/15 [facility] [address] [facility] [place] [address] documented as of this encounter
--- OUTSIDE RECORDS SUMMARY | 2022-06-21 19:22 | XMS_ITS | Encounter Summary ---
:1965 Author Organization [facility] Address [address] [place] [address] Care Team Providers Name Role Phone Harriet Haley MD Primary Care Provider [phone] Reason for Visit Reason Onset Date Comments Patient/info Update 06/25/2016 Encounter Details Date Type Department Care Team Description 06/25/2016 Telephone [facility] Jossy Kilgore Pa tient/info Update [facility] DO [place] [facility] [address] [facility] [address] [address] [place] [address] [facility] [address] [place], [place] [address] (Wo rk) Social History Tobacco Use Types Packs/Day Years Used Date Smoking Tobacco: Former Cigarettes Quit : 09/15/2015 Alcohol Use Standard Drinks/Week Comments Yes 0 (1 standard drink = 0.6 oz pure alcoho l) SMALL Sex Assigned at Date Recorded Not on file documented as of this encounter Miscellaneous Notes Telephone Encounter - Carlos Roth - 06/30/2016 2:29 PM CST No return phone call. Closing encounter. Carlos Roth ATC RACT SERVICEMAN Telephone Encounter - John Solano - 06/25/2016 10:57 AM CST Patient left voice mail stating that her foot was feeling much better until a few days ago when she bumped it and since that time her foot has been more swollen and painful again. Returned call to patient and left voice mail. Questioned whether she has been wearing the CAM boot at all time which was the recommendation of Dr. Kilgore at the last OV. Encouraged her to RICE her footas much as possible and try NSAIDs as needed for pain and swelling. Discussed the POC likely wouldn't change regardless given that she should be wearing the boot at all time, but mentioned that if she is concerned about further injury to her foot she could be seen sooner than the [address] Kilgore had mentioned at the last visit. Requested she call back with further questions or concerns. John Solano ATC RACT SERVICEMAN documented in this encounter Plan of Treatment Not on filedocumented as of this encounter Visit Diagnoses Not on filedocumented in this encounter Care Teams Electric Motor Tester Relationship Specialty Start Date End Date Harriet Haley MD PCP - General Physician Play Back Operator 10/01/15 [facility] [address] [place] [address] documented as of this encounter
--- OUTSIDE RECORDS SUMMARY | 2022-06-21 19:22 | XMS_ITS | Encounter Summary ---
:1965 Author Organization [facility] Address [address] [place] [address] Care Team Providers Name Role Phone Harriet Haley MD Primary Care Provider [phone] Reason for Visit Reason Onset Date Comments Forms 05/23/2016 FMLA Encounter Details Date Type Department Care Team Description 05/23/2016 [facility] Jossy Kilgore, DO Forms (FMLA) [facility] [place] [facility] [address] [facility] [address] [address] [place] [address] [address] [place], [place] [address] (Wo rk) Social History Tobacco Use Types Packs/Day Years Used Date Smoking Tobacco: Former Cigarettes Quit : 09/15/2015 Alcohol Use Standard Drinks/Week Comments Yes 0 (1 standard drink = 0.6 oz pure alcoho l) SMALL Sex Assigned at Date Recorded Not on file documented as of this encounter Miscellaneous Notes Telephone Encounter - Kalyani Cardona RN - 06/05/2016 9:22 AM CDT Per Carlos Roth ATC, forms were received, completed, faxed and sent to scanning. Closing encounter. Erasmo Cardona RN Telephone Encounter - Kalyani Cardona RN - 05/23/2016 10:17 AM CDT Patient calls stating she has been seeing Dr. Kilgore and is unable to bear weight. 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 She is asking how to get forms to us. Informed she may fax or drop off. Fax number given. Asked that she complete an MARY KAY online and fax with forms. She verbalized understanding. Awaiting forms. Erasmo Cardona RN documented in this encounter Plan of Treatment Not on filedocumented as of this encounter Visit Diagnoses Not on filedocumented in this encounter Care Teams Restaurant Operations Manager Relationship Specialty Start Date End Date Harriet Haley MD PCP - General Physician Control Clerk Food And Beverage 10/01/15 [place] [address] [facility] [address] documented as of this encounter
--- OUTSIDE RECORDS SUMMARY | 2022-06-21 19:22 | XMS_ITS | Encounter Summary ---
:1965 Author Organization [place] Address [address] [place] [address] Care Team Providers Name Role Phone Harriet Haley MD Primary Care Provider [phone] Reason for Visit (Routine) - Closed Specialty Diagnoses / Procedures Referred By Contact Refer red To Contact Radiology / Radiology. Diagnoses sb pt [place] [address] [facility] [address] [place] [address] Phone: Fax: Referral ID Status Reason Start Date Expiration Date Visits Requ ested Visits Authorized [id number] Closed 05/16/2016 05/12/2017 1 1 Encounter Details Date Type Department Care Team Description 05/16/2016 Hospital Encounter [facility] Kilgore, Jossy Br [place]e, [place] [address] [facility] [place] [address] [place] [address] [address] [address] [place], [place] [address] (Wo rk) Social History Tobacco Use Types Packs/Day Years Used Date Smoking Tobacco: Former Cigarettes Quit : 09/15/2015 Alcohol Use Standard Drinks/Week Comments Yes 0 (1 standard drink = 0.6 oz pure alcoho l) SMALL Sex Assigned at Date Recorded Not on file documented as of this encounter Medications at Time of Discharge [...] Device 0 05/09/2016 DMEIndications: Left ordered: The foot pain following items were dispensed: Roll-a-bout for possible [...] mg by mouth 0 PO) every morning HYDROcodone-acetaminoph Take 1 tablet by 15 tablet 0 201506/26/2016 en (NORCO) 5-325 MG per mouth every 6 hours tabletIndications: Pain as needed of left lower extremity polyethylene glycol Take 17 g (1 capful) 510 g 1 201506/26/2016 (MIRALAX) by mouth 3 times powderIndications: daily as needed for Constipation, constipation unspecified constipation type Pregabalin (LYRICA PO) Take 300 mg by mouth 0 06/26/2016 2 times daily Varenicline Tartrate Take 1 mg by mouth 2 0 06/26/2016 (CHANTIX PO) times daily documented as of this encounter Plan of Treatment Not on filedocumented as of this encounter Procedures Procedure Name Priority Date/Time Associated Diagnosis Comme nts MR FOOT LEFT W/O Routine 05/16/2016 4:19 PM Left foot pain Res ults for this CONTRAST CDT procedure are i n the results section. documented in this encounter Results MR Foot Left w/o [...] above. YEMI COATES MD Jossy [place]ore DO [facility] [place] documented in this encounter Visit Diagnoses Diagnosis Left foot pain Pain in limb documented in this encounter Care Teams Manager Appointment Relationship Specialty Start Date End Date Harriet Haley MD PCP - General Physician Bowling Alley Manager 10/01/15 [facility] [address] [place] [address] documented as of this encounter
--- OUTSIDE RECORDS SUMMARY | 2022-06-21 19:22 | XMS_ITS | Encounter Summary ---
:1965 Author Organization [place] Address [address] [place] [address] Care Team Providers Name Role Phone Harriet Haley MD Primary Care Provider [phone] Encounter Details Date Type Department Care Team Description 11/05/2015 Anesthesia - [facility] Aaron Carvalho MD [address] [place] [address] [phone] Social History Tobacco Use Types Packs/Day Years Used Date Smoking Tobacco: Former Cigarettes Quit : 09/15/2015 Alcohol Use Standard Drinks/Week Comments Yes 0 (1 standard drink = 0.6 oz pure alcoho l) SMALL Sex Assigned at Date Recorded Not on file documented as of this encounter OR Notes Anesthesia Postprocedure Evaluation - Aaron Carvalho - 11/05/2015 2:17 PM CDT Patient: Lizzie He RETROPUBIC MIDURETHRAL SLING (SPARC) IMPLANTED AND EXPLANTED INTRAOPERATIVE INJURY TO URETHRA WITH REPAIR, CYSTOSCOPY Anesthesia type: general Patient location: PACU Last vitals: Vitals: 11/05/15 1400 BP: Pulse: Resp: 16 Temp: SpO2: 95% Post vital signs: stable Level of consciousness: awake and responds to simple questions Post-anesthesia pain: pain controlled Post-anesthesia nausea and vomiting: no Pulmonary: unassisted, return to baseline Cardiovascular: stable and blood pressure at baseline Hydration: adequate Anesthetic complications: no Additional Notes: Anesthesia Preprocedure Evaluation - Aaron Carvalho - 11/05/2015 9:06 AM CDT Anesthesia Evaluation History of anesthetic complications: ponv. Airway Mallampati: II Neck ROM: full Pulmonary - negative ROS and normal exam Cardiovascular (+) dysrhythmias, Rhythm: regular Rate: normal, Neuro/Psych Neuromuscular disease: cervical, lumbar disc. Endo/Other (+) obesity, GI/Hepatic/Renal (+) GERD, Dental - normal exam Anesthesia Plan Planned anesthetic: general endotracheal ASA 3 Induction: intravenous Anesthetic plan and risks discussed with: patient Post-op plan: routine recovery documented in this encounter Miscellaneous Notes Anesthesia Care Transfer Note - Neeru Lorenzo - 11/05/2015 11:23 AM CDT Last vitals: Vitals: 11/05/15 1120 BP: 125/78 Pulse: 93 Resp: 16 Temp: 37.2 ??C (99 ??F) SpO2: 100% Patient's level of consciousness is drowsy Spontaneous respirations: yes Maintains airway independently: yes Dentition unchanged: yes Oropharynx: oropharynx clear of all foreign objects I completed my SBAR handoff to the receiving nurse per policy and procedure. documented in this encounter Plan of Treatment Not on filedocumented as of this encounter Visit Diagnoses Not on filedocumented in this encounter Care Teams Nailhead Operator Relationship Specialty Start Date End Date Harriet Haley MD PCP - General Physician Hoop Maker 10/01/15 [facility] [address] [place] [address] documented as of this encounter
--- OUTSIDE RECORDS SUMMARY | 2022-06-21 19:22 | XMS_ITS | Encounter Summary ---
:1965 Author Organization [place] Address [facility] [place] [address] Care Team Providers Name Role Phone Harriet Haley MD Primary Care Provider [phone] Encounter Details Date Type Department Care Team Description 06/09/2016 Radiant Appointment [facility] Jossy Kilgore tress fracture of Sports and Charleen, DO metatarsal bone of [facility] [place] left foot with [place] [facility] routine healing [address] [place] [address] [facility] [address] [place] [address] [phone] Social History Tobacco Use Types Packs/Day Years [...] of le ft foot with routine healing documented in this encounter Care Teams Sous Chef Kitchen Manager Relationship Specialty Start Date End Date Harriet Haley MD PCP - General Physician Imaging Nurse 10/01/15 [facility] [address] [place] [address] documented as of this encounter
--- OUTSIDE RECORDS SUMMARY | 2022-06-21 19:22 | XMS_ITS | Encounter Summary ---
:1965 Author Organization [place] Address [address] [place] [address] Care Team Providers Name Role Phone Harriet Haley MD Primary Care Provider [phone] Reason for Visit Reason Comments RECHECK Encounter Details Date Type Department Care Team Description 05/19/2016 Office Visit [facility] Magui, Jossy Villaseñor, Le ft foot pain (Primary Dx); Sports Medicine DO Stress fracture of metatarsal bone of le ft foot with routine healing Clinic [facility] [address] [facility] [address] [address] [place] [address] [facility] [address] [place], [place] [address] (Wo rk) Social History Tobacco Use Types Packs/Day Years Used Date Smoking Tobacco: Former Cigarettes Quit : 09/15/2015 Alcohol Use Standard Drinks/Week Comments Yes 0 (1 standard drink = 0.6 oz pure alcoho l) SMALL Sex Assigned at Date Recorded Not on file documented as of this encounter Last Filed Vital Signs Vital Sign Reading Time Taken Comments Blood Pressure 150/88 05/19/2016 1:17 PM CDT Pulse 93 05/19/2016 1:17 PM CDT Temperature - - Respiratory Rate - - Oxygen Saturation - - Inhaled Oxygen Concentration - - Weight 97.5 kg (215 lb) 05/19/2016 1:17 PM CDT Height 172.7 cm (5' 8) 05/19/2016 1:17 PM CDT Body Mass Index 32.69 05/19/2016 1:17 PM CDT documented in this encounter Patient Instructions Patient InstructionsDuJossy singh DO - 05/19/2016 1:31 PM CDT Thank you for allowing us to participate in your care today. Please find below your visit diagnosis and the plan going forward. 1. Left foot pain 2. Stress fracture of metatarsal bone of left foot with routine healing Activity modification as discussed Recommend non-weight bearing and letter provided for work. At home continue to be non-weight bearing Follow up 2-3 weeks or sooner if needed; call direct clinic number [[phone]] at any time with questions or concerns. Jossy Kilgore DO CA[facility] documented in this encounter Progress Notes Jossy Kilgore DO - 05/19/2016 1:15 PM CDT [facility] Clinic Visit May 19, 2016 PCP: Harriet Haley Subjective: Lizzie He is a 50 year old female who is seen in follow-up for Left foot pain (primary encounter diagnosis) that began 2.5 week(s) ago. They were last seen 05/09/2016. The patient is seen by themselves. They are returning to clinic for MRI results review. Since their last visit reports 0% - (About the same as last time). They indicate that their pain level is 4/10. They have tried ice, ibuprofen, CAM Boot (wears mostly outside the home), and Tramadol (Ultram - at night) and previous imaging (MRI see below). Has been weight-bearing in the boot while at work. Also weight bearing out of the boot at home. Painful walking in the boot. Patient's past medical, surgical, social, and family histories were reviewed today and no changes are noted. Review of Systems: Constitutional: NEGATIVE for fever, chills, change in weight Skin: NEGATIVE for worrisome rashes, moles or lesions GI/: NEGATIVE for bowel or bladder changes Neuro: NEGATIVE for weakness, dizziness or paresthesias Objective: BP 150/88 mmHg Pulse 93 Ht 5' 8 (1.727 m) Wt 215 lb (97.523 kg) BMI 32.70 kg/m2 General: healthy, alert and in no distress HEENT: no scleral icterus or conjunctival erythema Skin: no suspicious lesions or rash. No jaundice. CV: mild pedal edema - improved from previous Resp: normal respiratory effort without conversational dyspnea Psych: normal mood and affect Gait: using a CAM walker Neuro: Motor strength as noted below MSK: deferred Independent visualization of the below image: MRI LEFT FOOT WITHOUT CONTRAST? 05/16/2016 4:19 PM? IMPRESSION: 1. Moderate marrow edema in the distal third of the third metatarsal. Although a fracture line is not seen, this is suspicious for a stress reaction or occult stress fracture. 2. Degenerative changes elsewhere as described above. YEMI PRO MD ASSESSMENT & PLAN ICD-10-CM 1. Left foot pain M79.672 2. Stress fracture of metatarsal bone of left foot with routine healing M84.375D traMADol (ULTRAM) 50 MG tablet Reviewed MRI which confirms stress reaction in 3rd and 2nd met Expressed importance/need for non-weight bearing. Use boot and roll-about at work. Non-weight bearing at home as well. Rx for a few more tabs of Tramadol to use at night - no alcohol/drinking while taking. Hopefull thatwith compliance/non-weight bearing will no longer need Ice and Tylenol for pain. Limit NSAIDs. Letter provided for work stipulated that she must be nonweightbearing. Follow up in 2-3 weeks. Call direct clinic number [phone] at any time with questions or concerns. Instructed to call the office if the condition evolves or worsens. Patient's conditions were thoroughly discussed during today's visit with greater than 50% of the visit spent counseling the patient with total time spent [id number] with the patient being 25 minutes. [facility]ossy [facility] documented in this encounter Nursing Notes Carlos Roth - 05/19/2016 1:18 PM CDT Chief Complaint Patient presents with ??? RECHECK Initial BP 150/88 mmHg Pulse 93 Ht 5' 8 (1.727 m) Wt 215 lb (97.523 kg) BMI 32.70 kg/m2 Estimated body mass index is 32.7 kg/(m^2) as calculated from the following: Height as of this encounter: 5' 8 (1.727 m). Weight as of this encounter: 215 lb (97.523 kg). BP completed using cuff size: mamadou Roth ATC documented in this encounter Plan of Treatment Not on filedocumented as of this encounter Visit Diagnoses Diagnosis Left foot pain - Primary Pain in limb Stress fracture of metatarsal bone of le ft foot with routine healing documented in this encounter Care Teams Crm Functional Analyst Relationship Specialty Start Date End Date Harriet Haley MD PCP - General Physician Inker Machine 10/01/15 [facility] [address] [place] [place] [address] documented as of this encounter
--- OUTSIDE RECORDS SUMMARY | 2022-06-21 19:22 | XMS_ITS | Encounter Summary ---
:1965 Author Organization [place] Address [address] [place] [address] Care Team Providers Name Role Phone Harriet Haley MD Primary Care Provider [phone] Encounter Details Date Type Department Care Team Description 02/20/2016 Surgery - [facility] Marco Antonio Cid MD [facility] UROLOGIC [place] SPECIALISTS [facility] [place] [phone] [place] [address] (Wo rk) Social History Tobacco Use Types [...] 5:53 PM CDT documented in this encounter Plan of Treatment Not on filedocumented as of this encounter Visit Diagnoses Not on filedocumented in this encounter Care Teams Lift Mechanic Relationship Specialty Start Date End Date Harriet Haley MD PCP - General Physician Canceling And Cutting Control Clerk 10/01/15 [facility] [address] [place] [address] documented as of this encounter
--- OUTSIDE RECORDS SUMMARY | 2022-06-21 19:22 | XMS_ITS | Encounter Summary ---
:1965 Author Organization [place] Address [facility] [place] [address] Care Team Providers Name Role Phone Harriet Haley MD Primary Care Provider [phone] Encounter Details Date Type Department Care Team Description 05/08/2016 Radiant Appointment [facility] Karlie Gates of left lower Clinic [place] MD [place] extremity [address] [address] [facility] [phone] [place] [address] Social History Tobacco Use Types Packs/Day [...] nts XR FOOT LEFT G/E 3 Routine 05/08/2016 8:10 PM Pain of left low er Results for this VIEWS CDT extremity procedure are i n the results section. [...] Diagnoses Diagnosis Pain of left lower extremity documented in this encounter Care Teams Rotor Assembler Relationship Specialty Start Date End Date Harriet Haley MD PCP - General Physician Enrobing Machine Feeder 10/01/15 [facility] [address] [facility] [place] [address] documented as of this encounter
--- OUTSIDE RECORDS SUMMARY | 2022-06-21 19:22 | XMS_ITS | Encounter Summary ---
:1965 Author Organization [place] Address [address] [place] [address] Care Team Providers Name Role Phone Harriet Haley MD Primary Care Provider [phone] Encounter Details Date Type Department Care Team Description 11/05/2015 Surgery - [facility] Marco Antonio Cid MD [facility] UROLOGIC [place] OR SPECIALISTS [facility] [place] [phone] [place] [address] (Wo rk) Social History Tobacco [...] - - Weight 99.8 kg (220 lb) 10/30/2015 3:00 PM CDT Height 172.7 cm (5' 8) 10/30/2015 3:00 PM CDT Body Mass Index 33.45 10/30/2015 3:00 PM CDT documented in this encounter Plan of Treatment Not on filedocumented as of this encounter Visit Diagnoses Not on filedocumented in this encounter Care Teams Manager Of Financial Relationship Specialty Start Date End Date Harriet Haley MD PCP - General Physician Calender Tender 10/01/15 [facility] [address] [facility] [address] documented as of this encounter
--- OUTSIDE RECORDS SUMMARY | 2022-06-21 19:22 | XMS_ITS | Encounter Summary ---
:1965 Author Organization [place] Address [address] [place] [address] Care Team Providers Name Role Phone Harriet Haley MD Primary Care Provider [phone] Reason for Visit Reason Comments RECHECK Encounter Details Date Type Department Care Team Description 06/09/2016 Office Visit [facility] Magui, Jossy Villaseñor, ress fracture of Sports Medicine DO metatarsal bone of [facility] [place] [facility] [place] left foot with [address] [facility] routine healing [address] (Primary Dx) [place] [address] [address] [place], [place] [address] (Wo rk) Social History Tobacco Use Types Packs/Day Years Used Date Smoking Tobacco: Former Cigarettes Quit : 09/15/2015 Alcohol Use Standard Drinks/Week Comments Yes 0 (1 standard drink = 0.6 oz pure alcoho l) SMALL Sex Assigned at Date Recorded Not on file documented as of this encounter Last Filed Vital Signs Vital Sign Reading Time Taken Comments Blood Pressure 153/87 06/09/2016 1:04 PM CDT Pulse 97 06/09/2016 1:04 PM CDT Temperature - - Respiratory Rate - - Oxygen Saturation - - Inhaled Oxygen Concentration - - Weight 97.5 kg (215 lb) 06/09/2016 1:04 PM CDT Height 172.7 cm (5' 8) 06/09/2016 1:04 PM CDT Body Mass Index 32.69 06/09/2016 1:04 PM CDT documented in this encounter Patient Instructions Patient InstructionsDuJossy singh DO - 06/09/2016 1:21 PM CDT Thank you for allowing us to participate in your care today. Please find below your visit diagnosis and the plan going forward. 1. Stress fracture of metatarsal bone of left foot with routine healing Activity modification as discussed Weight bearing in the boot at all times Letter given today - ok to go back to work, must wear the boot Follow up in 4 weeks (sooner if needed; call direct clinic number [[phone]] at any time with questions or concerns) Jossy Kilgore DO CA[facility] documented in this encounter Progress Notes Jossy Kilgore DO - 06/09/2016 1:02 PM CDT [facility] Clinic Visit Jun 09, 2016 PCP: Harriet Haley Subjective: Lizzie He is a 50 year old female who is seen in follow-up for stress fracture of metatarsal bone of left foot with routine healing (primary encounter diagnosis) that began 6 week(s) ago. They were last seen 05/19/16. The patient is seen by themselves. They are returning to clinic as directed from previous visit. Since their last visit reports 65% improvement. She reports that her swelling has gone away. She returned her roll-a-bout 06/05/16. Is pain-free when she walks in the boot. However is not wearing the boot at home and noticed some pain across the top of her foot one ambulating. She was unable to work roll about therefore at this time is notreturned to work. They indicate that their pain level is 4/10. They have tried rest/activity avoidance and some ibuprofen. Patient's past medical, surgical, social, and family histories were reviewed today and no changes are noted. Review of Systems: Constitutional: NEGATIVE for fever, chills, change in weight Skin: NEGATIVE for worrisome rashes, moles or lesions GI/: NEGATIVE for bowel or bladder changes Neuro: NEGATIVE for weakness, dizziness or paresthesias Objective: BP 153/87 mmHg Pulse 97 Ht 5' 8 (1.727 m) Wt 215 lb (97.523 kg) BMI 32.70 kg/m2 General: healthy, alert and in no distress HEENT: no scleral icterus or conjunctival erythema Skin: no suspicious lesions or rash. No jaundice. CV: No pedal edema Resp: normal respiratory effort without conversational dyspnea Psych: normal mood and affect Gait: Not wearing her cam Walker today Neuro: Motor strength as noted below MSK: LEFT FOOT Inspection: ?? No swelling over distal foot / metatarsal heads Palpation: ?? Tender over distal 3rd met, less tender over 2nd. Tender over the distal 4th met. Overall tenderness has improved with the exception of the 4th met which appears at/more than previous. Range of Motion: ?? Full ROM of the ankle Strength: ??Ankle strength - grossly intact Independent visualization of the below image: MRI LEFT FOOT WITHOUT CONTRAST? 05/16/2016 4:19 PM? IMPRESSION: 1. Moderate marrow edema in the distal third of the third metatarsal. Although a fracture line is not seen, this is suspicious for a stress reaction or occult stress fracture. 2. Degenerative changes elsewhere as described above. YEMI PRO MD ASSESSMENT & PLAN ICD-10-CM 1. Stress fracture of metatarsal bone of left foot with routine healing M84.375D CANCELED: XR Foot Left G/E 3 Views Currently 6 weeks from date of injury but 3 weeks from when she started wearing the boot and unfortunately has not been compliant with the recommendations discussed at our previous visit. Discussed her exam and importance of staying compliant with wearing the boot at all times. Letter given today - ok to go back to work, must wear the boot Follow up in 4 weeks. Call direct clinic number [phone] at any time with questions or concerns.Instructed to call the office if the condition evolves or worsens. Patient's conditions were thoroughly discussed during today's visit with greater than 50% of the visit spent counseling the patient with total time spent [id number]-uqrh with the patient being 25 minutes. Jossy Kilgore DO CA[facility] documented in this encounter Nursing Carlos Miller - 06/09/2016 1:05 PM CDT Chief Complaint Patient presents with ??? RECHECK Initial BP 153/87 mmHg Pulse 97 Ht 5' 8 (1.727 m) Wt 215 lb (97.523 kg) BMI 32.70 kg/m2 Estimated body mass index is 32.7 kg/(m^2) as calculated from the following: Height as of this encounter: 5' 8 (1.727 m). Weight as of this encounter: 215 lb (97.523 kg). BP completed using cuff size: chrissy Roth ATC documented in this encounter Plan of Treatment Not on filedocumented as of this encounter Visit Diagnoses Diagnosis Stress fracture of metatarsal bone of le ft foot with routine healing - Primary documented in this encounter Care Teams Supervisor Compounding And Finishing Relationship Specialty Start Date End Date Harriet Haley MD PCP - General Physician Glass Checker 10/01/15 [facility] [address] [place] [address] documented as of this encounter
--- OUTSIDE RECORDS SUMMARY | 2022-06-21 19:22 | XMS_ITS | Encounter Summary ---
:1965 Author Organization [place] Address [facility] [place] [address] Care Team Providers Name Role Phone Harriet Haley MD Primary Care Provider [phone] Reason for Visit Reason Onset Date Comments Procedure 2015 LESI Encounter Details Date Type Department Care Team Description 2015 [facility] Management Pr ocedure (LESI) Management [facility] [place] [id number] [place] [address] [address] [place] [address] Social History Tobacco Use Types Packs/Day Years Used Date Smoking Tobacco: Former Cigarettes Quit : 09/15/2015 Alcohol Use Standard Drinks/Week Comments Yes 0 (1 standard drink = 0.6 oz pure alcoho l) SMALL Sex Assigned at Date Recorded Not on file documented as of this encounter Miscellaneous Notes Telephone Encounter - Babita Rosado - 10/29/2015 9:32 AM CDT Called pt to schedule LESI, lvm. Babita Rosado Production Pattern Maker [facility] [place] Telephone Encounter - Babita Rosado - 2015 8:37 AM CDT Called pt to schedule LESI, LVM. Babita Rosado Production Pattern Maker [facility] [place] Telephone Encounter - Alfreda Segura - 2015 8:14 AM CDT Order received from [facility] for TF LESI. Order scanned to telephone encounter, routing to scheduling coordinators to contact patient. Alfreda Segura Production [facility] documented in this encounter Plan of Treatment Not on filedocumented as of this encounter Visit Diagnoses Not on filedocumented in this encounter Care Teams Marketing Liaison Relationship Specialty Start Date End Date Harriet Haley MD PCP - General Physician Honey Blender 10/01/15 [facility] [address] [place] [id number] documented as of this encounter
--- OUTSIDE RECORDS SUMMARY | 2022-06-21 19:22 | XMS_ITS | Encounter Summary ---
:1965 Author Organization [place] Address [address] [facility] [place] [address] Care Team Providers Name Role Phone Harriet Haley MD Primary Care Provider [phone] Reason for Visit Reason Comments Edema right leg swelling/pain, swe lling in both legs x today, also swelling both ankles/feet Encounter Details Date Type Department Care Team Description 06/26/2016 Office Visit [facility] Roshan Wooten Bilate ral leg edema Urgent Care Shaan Malhotra APRN SEASONAL WAREHOUSE ASSOCIATE (Primary Dx) [address] [facility] [address] [address] [address] [place], [place] [id number] [phone] Social History Tobacco Use Types Packs/Day Years Used Date Smoking Tobacco: Former Cigarettes Quit : 09/15/2015 Smokeless Tobacco: Never Alcohol Use Standard Drinks/Week Comments Yes 0 (1 standard drink = 0.6 oz pure alcoho l) SMALL Sex Assigned at Date Recorded Not on file documented as of this encounter Last Filed Vital Signs Vital Sign Reading Time Taken Comments Blood Pressure 140/76 06/26/2016 7:50 PM LAPEL PADDER Pulse 98 06/26/2016 7:50 PM LAPEL P[employer]DER Temperature 36.9 ??C (98.5 ??F) 06/26/2016 7:50 PM LAPEL PADDER Respiratory Rate - - Oxygen Saturation 96% 06/26/2016 7:50 PM LAPEL PADDER Inhaled Oxygen Concentration - - Weight 97.5 kg (215 lb) 06/26/2016 7:50 PM LAPEL PADDER Height 172.7 cm (5' 8) 06/26/2016 7:50 PM LAPEL PADDER Body Mass Index 32.69 06/26/2016 7:50 PM LAPEL PADDER documented in this encounter Patient Instructions Patient KwabenaRoshan Wooten MELISSA SEASONAL WAREHOUSE ASSOCIATE - 06/26/2016 8:04 PM LAPEL PADDER Images from the original note were not included. Edema in the Lower Body What is edema? Edema is swelling caused by the build-up of fluid in the body tissues. This fluid, called lymph fluid, bathes all the cells in the body. Normally, the lymph system (a network of nodes and vessels) removes any extra fluid and returns it to the bloodstream. But when part of the lymph system is damaged or doesn t work right, the fluid is not removed. Instead, it keeps building up until swelling occurs. Swelling often appears in the arms, legs, face, neck or trunk. There is no cure for it, but it can be controlled. There are two kinds of edema: Primary edema is caused by a problem in the lymph system that is present at . The swelling may exist at or develop later in life. It is more common in the legs than in the arms. It occurs more often in females. Secondary edema results from a known injury to the lymph system. It may be due to surgery, injury, scarring, chronic vein problems, radiation treatment, obesity (being very overweight) or repeated infections. Cancer patients who have their lymph nodes removed or radiated are at higher risk for edema. It may occur right after cancer therapy or many years later. Your doctor may think you re at risk for edema, or you may already have it. In either case, you should ask to meet with a certified edema therapist. What are the symptoms? Early symptoms may be subtle: You may have a heavy, tight or full feeling in a limb, the genital area or your abdomen (belly area), even though there is no visible swelling. Swelling may appear for a short time at the end of the day and go away by morning. The limb may tire more easily and feel achy. Symptoms tend to get worse without treatment. The skin and soft tissues of the limb will lose their elasticity (ability to stretch) and may harden (fibrosis). Your chances of getting skin infections, such as cellulitis, increase. If it is not treated, edema progresses in three stages: ?? Stage 1: Swelling goes away after you rest with your leg raised for several hours. ?? Stage 2: Swelling does not go away after raising your leg for several hours. The skin on your legs and lower body gets harder. You may have skin infections, increasing the risk that you will move toStage 3. ?? Stage 3: Extreme swelling, or elephantiasis, may occur. The skin becomes thicker and may have wart-like bumps (called papillomas). How can I prevent or control edema? You may prevent edema by following the guidelines below. If you already have it, these steps may keep your swelling from getting worse. But they cannot replace treatment by a certified therapist. Take care of your skin The extra fluid in your leg and lower body is a site where germs can easily multiply. Try to avoid any breaks in the skin such as cuts, insect bites, medina or scratches. A break in the skin can let germs into the body and put the swollen body part at risk for infection. ?? If skin breaks do occur, you will need to treat them quickly. Always wash cuts or injuries right away. You may carry an anti-bacterial cream (Neosporin, Polysporin, bacitracin) and some Band-Aids tocover any wounds. Call your doctor if you see signs of infection: redness, heat, fever or sudden increased swelling. ?? Keep the limb and lower body clean and dry. ?? Check between your toes for cracks or blisters. You may want to use anti- fungal powder or cream as needed. ?? After washing, gently dry your skin well, especially between the toes. ?? Clip your toenails carefully. Do not cut the cuticles. ?? Take extra care when shaving. ?? Protect skin with sunscreen (at least 30 SPF) and insect repellent. ?? Use scent-free, color-free soap and lotion, such as Radha, Curel, Eucerin or Lubriderm. (Do not put lotion between your toes.) Put the lotion on right after bathing. Use it more often if you notice any dryness. Daily lotion will help prevent chapping or chaffing of the skin. ?? If possible, do not allow shots, blood tests, skin tests, tattoos, body piercings, acupuncture orother procedures on your leg or lower trunk. ?? Wear protective clothing for sports, yard work and cleaning. ?? If you have an itch, do not scratch your skin. Instead, gently rub over the area with a cold, wetwashcloth. ?? Sexual activity may cause yeast or bladder infections in women. Any slight injury to this area may cause or increase swelling. ?? Call your doctor at once if you notice any redness, pain, heat or swelling in your leg, groin or belly (even in small amounts), or if you have a fever. Avoid extreme hot or cold Heat will cause blood vessels to dilate (grow wider), which increases the amount of fluid in the tissues. Extreme cold will cause vessels to constrict (become narrow), which decreases the flow of fluid. Either can make swelling worse, though heat is often worse than cold. ?? Avoid long, hot showers and baths. Stay away from saunas and hot tubs. Water above 102 F (38.9 C)may make swelling worse. ?? Avoid exposing your limb to extreme cold (for example, an ice pack). This may cause rebound swelling and chapped skin. ?? Exercise safely ?? Do moderate exercise, but don t get overheated or too sweaty. Be sure to wear your bandages or compression garments during exercise, if you have them. ?? Try to stay at a healthy body weight. ?? During and after exercise, check for any changes in how your limb looks or feels. If your limb begins to ache, raise it. You may want to place moist, cool towels on the limb. ?? When first starting any new exercise, take it easy. Slowly increase the amount of time and energyyou put into it. ?? Rest often during physical activity. This will give your limb time to recover. Don t restrict the flow of lymph fluid If you restrict the flow of the lymph fluid, your leg is more likely to swell. If the leg is alreadyswollen, restricting the flow may make the problem worse. Your doctor may want you to wear special bandages or compression garments. When properly fitted, these will not restrict the lymph fluid or blood flow. ?? Wear loose-fitting clothing and jewelry. Do not wear tight underwear or clothing that binds your legs. ?? Wear shoes that fit properly. They should not rub or chafe the feet. ?? Change your position often. Do not sit or stand for long periods of time. ?? When possible, rest with your feet up. Avoid crossing your legs. Practice healthy habits ?? Eat a healthy diet with plenty of fruits, vegetables and whole grains. Avoid foods that are high in fat or salt. ?? Don t smoke. Use alcohol in moderation. ?? Drink 6 to 8 glasses of water each day to help flush out your system. ?? Take extra care when flying. Air travel can increase swelling. ?? Keep doing your normal activities as much as possible. Talk to your doctor or therapist if you are unsure about an activity. How is edema treated? Your therapist will use a series of treatments called Complete Decongestive Therapy (CDT) This can greatly reduce the swelling in your legs or help to decrease the risk of swelling. Treatments may include: ?? Manual lymphatic drainage, or gentle massage-like treatment. This moves fluid from damaged areas to healthy areas where the lymph system works well. ?? Compression bandages to help soften hard (fibrotic) tissue, reduce swelling and prevent fluid from building up again. ?? Exercises that will help your lymph vessels work better. They will also move fluid out of the swollen leg and trunk. ?? Skin and nail care to help prevent infections. ?? Compression garments (medical support hose or stockings) to help prevent the build-up of fluid. ?? A home care program. To help control your edema, your therapist will create a treatment program that meets your specific needs. It may include all or some of the treatments above. Do I need an order to see a therapist? Yes. An order is a prescription for therapy. Your order must come from a doctor who is licensed in [place]. After we receive your order, you will have an evaluation by a physical or occupational therapist certified in Complete Decongestive Therapy. For more information about our services, call your local [facility] Treatment Center. You will find phonenumbers on the back of this booklet. [place] [facility] [address] [place] [address] tel: [phone] fax: [phone] [facility] [address] [facility] [place] [address] tel: [phone] fax: [phone] [facility] [address] [place] [address] tel: [phone] (to set up first visit, call [phone]) fax: [phone] [facility] [address] [place] [address] tel: [phone] (to set up first visit, call [phone]) fax: [phone] [facility] [address] [place] [address] tel: [phone] (to set up first visit, call [phone]) fax: [phone] For informational purposes only. Not to replace the advice of your health care provider. Copyright 2003, 2006 [facility]. All rights reserved. [facility] [id number] REV 09 10. L PADDER documented in this encounter Progress Notes Roshan Wooten APRN CNP - 06/26/2016 8:06 PM CST Chief Complaint Patient presents with ??? Edema right leg swelling/pain, swelling in both legs x today, also swelling both ankles/feet SUBJECTIVE: Lizzie He is a 50 year old female who presents with a single day of bilateral lower legs edema. Also complaining of leg pain. She is currently being treated for a stress fracture of the left foot. She has been using a pneumoboot. Somewhat less active with stress fracture. No prior history ofthrombosis. She has also been taking some NSAIDs regularly. No prior history of kidney dysfunction. OBJECTIVE: BP 140/76 mmHg Pulse 98 Temp(Src) 98.5 ??F (36.9 ??C) (Oral) Ht 5' 8 (1.727 m) Wt 215 lb (97.523 kg) BMI 32.70 kg/m2 SpO2 96% . Gen. overweight female in no acute distress. Nontoxic. Bilateral lower leg edema with theleft leg having some pitting edema. Also with bilateral calf tenderness to palpation. Good pedal pulses. Very subtle inferior bilateral zuleta erythema. No warmth to touch. Otherwise lung sounds were clear to auscultation throughout. Heart was of regular rhythm and rate. ASSESSMENT/PLAN: (R60.0) Bilateral leg edema (primary encounter diagnosis) Comment: Bilateral leg edema for which patient was sent to the emergency room to rule out thrombosis. May also be dependent edema and will probably need screening of kidney function at the emergency room. It is also very possible that this is dependent edema from being inactive. Nevertheless for now we will rule out any thrombosis and manage appropriately if negative. Roshan Wooten APRN CNP L PADDER documented in this encounter Nursing Notes Dennis Sterling CMA - 06/26/2016 7:57 PM CST Chief Complaint Patient presents with ??? Edema right leg swelling/pain, swelling in both legs x today, also swelling both ankles/feet Initial BP 140/76 mmHg Pulse 98 Temp(Src) 98.5 ??F (36.9 ??C) (Oral) Ht 5' 8 (1.727 m) Wt 215 lb (97.523 kg) BMI 32.70 kg/m2 SpO2 96% Estimated body mass index is 32.7 kg/(m^2) as calculated from the following: Height as of this encounter: 5' 8 (1.727 m). Weight as of this encounter: 215 lb (97.523 kg). BP completed using cuff size: regular Dennis Sterling CMA L PADDER documented in this encounter Plan of Treatment Not on filedocumented as of this encounter Visit Diagnoses Diagnosis Bilateral leg edema - Primary Edema documented in this encounter Care Teams Director Of Individual Giving Relationship Specialty Start Date End Date Harriet Haley MD PCP - General Physician Medical Sales Representative 10/01/15 [facility] [address] [place] [address] documented as of this encounter
--- OUTSIDE RECORDS SUMMARY | 2022-06-21 19:22 | XMS_ITS | Encounter Summary ---
:1965 Author Organization [place] Address [address] [place] [address] Care Team Providers Name Role Phone Harriet Haley MD Primary Care Provider [phone] Encounter Details Date Type Department Care Team Description 11/05/2015 Hospital Encounter [facility] Pako Cid S UI (stress urinary [facility] incontinence, [place] [facility] female) [address] [place] [id number] [place] [address] Social History Tobacco Use Types [...] 3:00 PM CDT documented in this encounter Medications [...] documented as of this encounter Progress Notes Historical Provider - 11/05/2015 12:27 PM CDT Note: Lizzie Roslyn He was visited by Resident Trackmobile Operator and received prayer and blessingas appropriate for current pre-surgical condition.. Rev. Cherie Medina M.Div. Resident Goodman [phone] documented in this encounter H&P Notes Historical Provider - 11/05/2015 9:33 AM CDT I have performed an assessment and examined the patient, as necessary, to update the patient's current status that may have changed since the prior History and Physical. The History & Physical has been reviewed and the patient's status is unchanged. documented in this encounter Miscellaneous Notes Op Note - Historical Provider - 11/05/2015 9:33 AM CDT FULL OPERATIVE NOTE [facility] Name: Lizzie He : 1965 Date: 11/05/2015 at 9:34 AM Preop Diagnosis: 1. Recurrent Stress Urinary Incontinence. 2. Pelvic Pain / Pelvic floor muscle dysfunction. Postop Diagnosis: 1. Recurrent Stress Urinary Incontinence. 2. Pelvic Pain / Pelvic floor muscle dysfunction. 3. Urethral Injury (Urethrostomy). Procedure: 1. Cystoscopy. 2. Retropubic Midurethal Sling Placement (SPARC) Placement and removal. 3. Urethral Injury Repair Surgeon:Pako Cid MD. Biological Sciences Instructor: Aliyah Becker MD. Drain: 16Fr sneed EBL: 40cc Complications:None Indication: This is a 50 y.o. female who had a midurethral sling placed in 2004 with benefit. She elected to have the mesh removed in 05/2015 due to pelvic pain and subsequently developed new stress urinary incontinence. She does have pelvic floor muscle tenderness at the obturator internus and as such we elected to perform a retropubic urethral sling. The risks benefits and alternatives were discussed with patient including possibly bleeding, infection, injury to surrounding structures, urethra, muscles, nerves, bladder, sphincter, urinary retention requiring Sneed catheter, or return to operatingroom for sling release, or pelvic pain. She agrees and wishes to proceed. The office cystoscopy showed no mesh erosion. She has urethral hypermobility and her UDS: demonstrated Stress urinary Incontinence with VLPP of 91cm H2O. Procedure: Patient was brought into the operating room and placed in a supine position. Gen. anesthesia was administered. She received a dose of intravenous antibiotics. She was positioned in dorsolithotomy positioned, prepped and draped in normal sterile fashion. A timeout was conducted. A lone retractor was used for vaginal exposure. Two Allis clamps was used to hold the mid urethral level and area was injected with local anesthesia for hydrodissection. A 3 cm incision was then made in the mid urethral level. The dissection was carried out laterally into the vaginal sulcus, the endopelvic fascia was not perforated. Suprapubic markings were done right above the suprapubic bone was 2 cm apart, 1 cm from the midline.A 15 blade was used to make a stab incision at this level after it was injected with local anesthesia. The SPARC trocar was inserted through the stab incision and guided out through the vaginal incision,making sure not to buttonhole. This was repeated on the other side. Sneed catheter was removed and acystoscopy ensued using a 70?? lens. There was no bladder injury noted and there was no urethral injury noted. The cystoscope was removed and the mesh was attached to the trocar and pulled on both sides. The Mesh sat nicely along the medial urethra without tension. Excess mesh was trimmed from the stab incision site. We were able to pass a scissors behind the mesh and the mid urethra. The vaginal area was irrigated and closed using 2-0 Vicryl in a running locked fashion. The stab incision into superpubic area were approximated using Dermabond. There was blood noted from the urethra. A repeat cystoscopy reveal no bladder injury but the mesh was noted along its tract in the mid ventral urethra with minimal oozing of blood from the 4' O Clock position. Decision was made to remove the sling. Cystoscope was removed and a 16fr sneed was placed per urethral into the bladder. The vaginal incision was reopened and the mesh was identified, grasped and removed in its entirety. There was a urethral injury noted in the mid urethra 1cm and the was closed in 2 layers using 4-0 vicryl after freeing up surrounding tissues for coverage. The vaginal epithelium was closed in interrupted fashion using 2-0 vicryl. Hemostasis was obtained. The vaginal incision was copiously irrigated. Dr Cid was present and participation in the entire operation. Plan: Patient is to be discharged with sneed catheter for 2 week to allow the urethra to heal, follow up in [address] [facility] with Dr Cid for removal of sneed. Call for appointment / keep return visit scheduled appointment. [phone]. Will consider placing a new mid-urethral sling in at least 3 months after the urethra has healed completely and no evidence of fistula. Aliyah Becker documented in this encounter Plan of Treatment Not on filedocumented as of this encounter Visit Diagnoses Diagnosis OPHELIA (stress urinary incontinence, female ) Female stress incontinence documented in this encounter Care Teams Digital Analytics Manager Relationship Specialty Start Date End Date Harriet Haley MD PCP - General Physician Biological Sciences Instructor 10/01/[address] [address] documented as of this encounter
--- OUTSIDE RECORDS SUMMARY | 2022-06-21 19:22 | XMS_ITS | Encounter Summary ---
:1965 Author Organization [place] Address [address] [place] [address] Care Team Providers Name Role Phone Harriet Haley MD Primary Care Provider [phone] Reason for Visit Reason Onset Date Comments Swelling 06/12/2016 Encounter Details Date Type Department Care Team Description 06/12/2016 Telephone [facility] Jossy Kilgore, Swelling Medicine [facility] [place] [facility] [address] [address] [facility] [address] [place] [address] [place] [address] [phone] (Wo rk) Social History Tobacco Use Types Packs/Day Years Used Date Smoking Tobacco: Former Cigarettes Quit : 09/15/2015 Alcohol Use Standard Drinks/Week Comments Yes 0 (1 standard drink = 0.6 oz pure alcoho l) SMALL Sex Assigned at Date Recorded Not on file documented as of this encounter Miscellaneous Notes Telephone Encounter - Carlos Roth - 06/12/2016 11:32 AM CDT I called Lizzie and she re-iterated the symptoms below. I offered her two options: 1) non-weight bearing for two weeks; or, 2) increased icing, aleve- 2 tabs twice a day for 5-7 days, britney wrap and then elevate as much as possible. She chose the second option and will call us back and let us know howshe is feeling. Carlos Roth ATC Telephone Encounter - Kalyani Cardona RN - 06/12/2016 10:04 AM CDT Patient left voicemail stating she saw Dr Kilgore for stress fracture of left foot. Went back to worklast night for the first time and took her boot and sock off this am. Her foot/ankle are both swollen and 3 toes are numb and tingly. Phone call to patient. 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 Her foot felt a little sore last night. No new injury. Came home and took boot off this am. Foot and ankle are swollen. 2nd, 3rd, and 4th toes are tingling. Feels like the pad of her foot is swollen and she can feel itwhen she walks. Has some bruising between 2nd and 3rd toes. Has foot elevated for the past hour. Tingling has not improved and is constant. Has taken Advil this am. Will discuss with Dr. Kilgore and get back with her. Please advise. Do you want to work her in to be seen today or tomorrow? Erasmo Cardona RN documented in this encounter Plan of Treatment Not on filedocumented as of this encounter Visit Diagnoses Not on filedocumented in this encounter Care Teams Education Program Specialist Relationship Specialty Start Date End Date Harriet Haley MD PCP - General Physician Agricultural Service Worker 10/01/15 [facility] [address] [place] [address] documented as of this encounter
--- OUTSIDE RECORDS SUMMARY | 2022-06-21 19:23 | XMS_ITS | Encounter Summary ---
:1965 Author Organization [place] Address [address] [place] [address] Care Team Providers Name Role Phone Amor Montgomery MD Primary Care Provider Encounter Details Date Type Department Care Team Description 08/05/2004 Orders Only [facility] Amor Montgomery [facility] HYROIDISM NOS Clinic Luly Hugo MD (Primary Dx) [address] [place], [place] [address] [address] [place] [address] [phone] Social History Tobacco Use Types Packs/Day Years Used Date Smoking Tobacco: Every Day Comments: LESS THAN 1 PPD Alcohol Use Standard Drinks/Week Comments Yes 0 (1 standard drink = 0.6 oz pure alcoho l) SMALL Sex Assigned at Date Recorded Not on file documented as of this encounter Nursing Notes 08/05/2004 12:00 PM CST >> ISABELLA MESA 08/05/2004 2:24 pm Ordered TSH per note on last TSH result for 4-6 month follow up. Renewed Rx per guidelines on protocol. documented in this encounter Plan of Treatment Not on filedocumented as of this encounter Visit Diagnoses Diagnosis Unspecified hypothyroidism - Primary documented in this encounter Care Teams Voltmeter Operator Relationship Specialty Start Date End Date Amor Montgomery MD PCP - General 09/24/01 05/05/13 [facility] [address] [place] [address] documented as of this encounter
--- OUTSIDE RECORDS SUMMARY | 2022-06-21 19:23 | XMS_ITS | Encounter Summary ---
:1965 Author Organization [place] Address [address] [place] [address] Care Team Providers Name Role Phone Amor Montgomery MD Primary Care Provider Reason for Visit Reason Comments Refill Request Encounter Details Date Type Department Care Team Description 07/09/[address] [facility] Amor Tubbs MD Refill Request [place] [address] [facility] [address] [place] [address] [place] [address] [phone] (Wo rk) Social History Tobacco Use Types Packs/Day Years Used Date Smoking Tobacco: Every Day Comments: LESS THAN 1 PPD Alcohol Use Standard Drinks/Week Comments Yes 0 (1 standard drink = 0.6 oz pure alcoho l) SMALL Sex Assigned at Date Recorded Not on file documented as of this encounter Miscellaneous Notes Telephone Encounter - 07/09/2003 11:59 PM STONEMASON SUPERVISOR >> AMOR Terrazas Jul 09, 2003 10:21 PM >> CALL RECEIVED. Contact: documented in this encounter Plan of Treatment Not on filedocumented as of this encounter Visit Diagnoses Diagnosis ERRONEOUS ENCOUNTER--DISREGARD - Primary documented in this encounter Care Teams Grocery Clerk Selling Relationship Specialty Start Date End Date Amor Montgomery MD PCP - General 09/24/01 05/05/13 [facility] [address] [place] [address] documented as of this encounter
--- OUTSIDE RECORDS SUMMARY | 2022-06-21 19:23 | XMS_ITS | Encounter Summary ---
:1965 Author Organization [place] Address [address] [place] [address] Care Team Providers Name Role Phone Amor Montgomery MD Primary Care Provider Reason for Visit Reason Comments Consult Encounter Details Date Type Department Care Team Description 06/29/2003 Office Visit [facility] Amor Montgomery MYALG IA AND MYOSITIS NOS; Clinic Luly Hugo MD ACUTE URI NOS; [address] [facility] TOMACH FUNCTION DIS NEC; [place] DEPRESSIVE DISORDER NEC; [place], [place] [address] MIGRAINE NOS W/O MENTN INTRACTABLE [address] [place] [address] [phone] Social History Tobacco Use Types Packs/Day Years Used Date Smoking Tobacco: Every Day Comments: LESS THAN 1 PPD Alcohol Use Standard Drinks/Week Comments Yes 0 (1 standard drink = 0.6 oz pure alcoho l) SMALL Sex Assigned at Date Recorded Not on file documented as of this encounter Last Filed Vital Signs Vital Sign Reading Time Taken Comments Blood Pressure 132/68 06/29/2003 3:30 PM RESEARCH DIETITIAN Pulse 72 06/29/2003 3:30 PM RESEARCH DIETITIAN Temperature - - Respiratory Rate 16 06/29/2003 3:30 PM RESEARCH DIETITIAN Oxygen Saturation - - Inhaled Oxygen Concentration - - Weight 80.7 kg (178 lb) 06/29/2003 3:30 PM RESEARCH DIETITIAN Height - - Body Mass Index 27.06 10/20/2002 1:00 PM RESEARCH DIETITIAN documented in this encounter Progress Notes 06/29/2003 3:30 PM RESEARCH DIETITIAN Acute problems: GERD, nausea now quite consistently muscle aches, feels poorly overall for several w eeks poor sleep at night now depressed fairly significantly.. has past hx of depression...no longer o n meds... some gave herloss of libido Also right now has a 2 day intractible CONNER (hx of peeriodic mi graines) that is no better with fioricet Review of patient's past medical history indicates: MIGRA INE NOS W/O MENTN INTRACTABLE HERPES ZOSTER NOS Current prescriptions: HYDROCODONE-ACETAMINOPHEN 10-325 MG OR TABS 1 CAPSULE EVERY 4 H OURS NEEDED ZYBAN 150 MG OR TBCR 1 tab QD (Once per day)x3 days then 1 tab BID (Twice per day) x 6 weeks FIORICET 325-40-50 MG OR TABS exam: Blood pressure 132/68, pulse 72, resp. rate 16, weight 1 78 lbs (80.740 kg). chest clear heart reg abdomen is tender in epigastrium & RUQ extrem normal Asses sment: Dyspepsia + GERD; r/o H. pylori depression sleep disturbance consider Gallbladder dz if sx do not resolve rapidly with PPI migraine CONNER's adverse effects(sexual) on SSRI's PLAN: check h.pylori b land diet prevacid 30 mg qd future GB US if not improving limited qty vicodin to help break CONNER trial effexor for depression documented in this encounter Nursing Notes 06/29/2003 3:30 PM CST >> MANNY GUTIERREZ 06/29/2003 3:29 pm NOT FEELING WELL FOR LAST 3 WEEKS, SOME NAUSEA, HEARTBURN, MUSCLE ACHES AND DEPRESSED. ALSO NOTES NOT SLEEPING WELL. documented in this encounter Plan of Treatment Not on filedocumented as of this encounter Procedures Procedure Name Priority Date/Time Associated Comments Diagnosis WBC & DIFF Routine 06/29/2003 3:59 PM Myalgia And Results f or this RESEARCH DIETITIAN Myositis Nos procedure are in Acute Uri Nos the results section. HCL HELICOBACTER Routine 06/29/2003 3:59 PM Stomach Function R esults for this PYLORI BRE IGG RESEARCH DIETITIAN Dis Nec procedure are in the results section. HCL MONO TEST Routine 06/29/2003 3:59 PM Myalgia And Results for this RESEARCH DIETITIAN Myositis Nos procedure are in Acute Uri Nos the results section. HCL TSH Routine 06/29/2003 3:59 PM Myalgia And Results f or this RESEARCH DIETITIAN Myositis Nos procedure are in Acute Uri Nos the results section. HCL SED RATE (ESR) Routine 06/29/2003 3:59 PM Myalgia And Res ults for this RESEARCH DIETITIAN Myositis Nos procedure are in Acute Uri Nos the results section. documented in this encounter Results HELICOBACTER PYLORI BRE IGG (06/29/2003 3:59 PM RESEARCH DIETITIAN) Component Value Ref Test Analysis Performed At [facility] Range Method Time Signature Specimen Serum [facility] LAB Heliobacter No detectable IgG antibody t o Helicobacter pylori. If current infection is CUSICK pylori Antibody suspected, please submit a new specimen in 4 to 6 we eks. [facility] LAB Report status FINAL [id number] [facility] Specimen Anatomical Collection Method Collection Time Receive d Time (Source) Location / / Volume Laterality 06/29/2003 3:59 PM 3 4:04 RESEARCH DIETITIAN PM RESEARCH DIETITIAN Amor Montgomery MD LABORATORY Performing Organization Address City/State/ZIP Code Phon e Number [facility] [address] [place] [address] [facility] LAB (ABNORMAL) SED RATE, AUTO (06/29/2003 3:59 PM RESEARCH DIETITIAN) P athologist Signature Sed Rate 22 (H) 0 - 20 mm/h [facility] Specimen Anatomical Collection Method Collection Time Receive d Time (Source) Location / / Volume Laterality 06/29/2003 3:59 PM 3 4:04 RESEARCH DIETITIAN PM RESEARCH DIETITIAN Amor Montgomery MD LABORATORY Performing Organization Address City/[facility]/ZIP Code Phon e Number [facility] [address] [place], [place] [address] [facility] WBC & DIFF (06/29/2003 3:59 PM RESEARCH DIETITIAN) [facility] gist Method Time Signature WBC 8.1 4.0 - [facility] 11.0 [place] 10e9/L CLINIC LAB Diff Method Automated [facility] LAB % Neutrophils 46 40 - 75 % [facility] % Lymphocytes 42 20 - 48 % [facility] % Monocytes 8 0 - 12 % [facility] % Eosinophils 2 0 - 6 % [facility] % Basophils 2 0 - 2 % [facility] Absolute 3.8 1.6 - 8.3 [place] Neutrophil 10e9/L [facility] Absolute 3.4 0.8 - 5.3 [place] Lymphocytes 10e9/L [facility] Absolute 0.6 0.0 - 1.3 [place] Monocytes 10e9/L [facility] Absolute 0.2 0.0 - 0.7 [place] Eosinophils 10e9/L [facility] Absolute 0.1 0.0 - 0.2 [place] Basophils 10e9/L [facility] Specimen Anatomical Collection Method Collection Time Receive d Time (Source) Location / / Volume Laterality 06/29/2003 3:59 PM 3 4:04 RESEARCH DIETITIAN PM RESEARCH DIETITIAN Amor Montgomery MD LABORATORY Performing Organization Address City/[facility] Phon e Number [place] [address] [place], [place] [address] [facility] MONO HETEROPHILE (06/29/2003 3:59 PM RESEARCH DIETITIAN) Patholo gist Method Time Signature Mononucleosis Negative NEG [facility] LAB Specimen Anatomical Collection Method Collection Time Receive d Time (Source) Location / / Volume Laterality 06/29/2003 3:59 PM 3 4:04 RESEARCH DIETITIAN PM RESEARCH DIETITIAN Amor Montgomery MD LABORATORY Performing Organization Address City/[facility] Phon e Number [facility] [address] [place], [place] [address] [address] [facility] LAB (ABNORMAL) TSH- (06/29/2003 3:59 PM RESEARCH DIETITIAN) P athologist Signature TSH 7.20 (H) 0.4 - 5.0 [place] mU/L [facility] Specimen Anatomical Collection Method Collection Time Receive d Time (Source) Location / / Volume Laterality 06/29/2003 3:59 PM 3 4:04 RESEARCH DIETITIAN PM RESEARCH DIETITIAN Amor Montgomery MD LABORATORY Performing Organization Address City/State/ZIP Code Phon e Number [facility] [address] [place] [address] [facility] documented in this encounter Visit Diagnoses Diagnosis Myalgia and myositis, unspecified Mylagia and myositis, unspecified Acute upper respiratory infections of un specified site Dyspepsia and other specified disorders of function of stomach Depressive disorder, not elsewhere class ified Migraine, unspecified, without mention o f intractable migraine without mention of status migrainosus documented in this encounter Care Teams Pyroglazer Relationship Specialty Start Date End Date Amor Montgomery MD PCP - General 09/24/01 05/05/13 [place] [address] [place] [address] documented as of this encounter
--- OUTSIDE RECORDS SUMMARY | 2022-06-21 19:23 | XMS_ITS | Encounter Summary ---
:1965 Author Organization [place] Address [address] [place] [address] Care Team Providers Name Role Phone Amor Curtis MD Primary Care Provider Reason for Visit Reason Comments Headache Encounter Details Date Type Department Care Team Description 09/22/[address] [facility] Amor Curtis MIGRA INE NOS W/O MENTN Clinic Luly Hugo MD INTRACTABLE (Primary [address] [facility] D x) [place], [place] [address] [place] [address] [place] [address] [phone] Social History Tobacco Use Types Packs/Day Years Used Date Smoking Tobacco: Every Day Comments: LESS THAN 1 PPD Alcohol Use Standard Drinks/Week Comments Yes 0 (1 standard drink = 0.6 oz pure alcoho l) SMALL Sex Assigned at Date Recorded Not on file documented as of this encounter Last Filed Vital Signs Vital Sign Reading Time Taken Comments Blood Pressure 102/70 09/22/2002 4:30 PM LITHOGRAPHIC STRIPPER Pulse 68 09/22/2002 4:30 PM LITHOGRAPHIC STRIPPER Temperature - - Respiratory Rate 16 09/22/2002 4:30 PM LITHOGRAPHIC STRIPPER Oxygen Saturation - - Inhaled Oxygen Concentration - - Weight - - Height - - Body Mass Index - - documented in this encounter Progress Notes 09/22/2002 4:30 PM LITHOGRAPHIC STRIPPER Pt was seen yesterday with sinus infection plus dyspepsia. Stomach is better already on nexium, butnow she has a bad migraine. She has had these from time to time; unfortunately imitrex & maxalt tria ls in past are not helpful. Limited exam done; vitals OK, sinuses bird tender, pt looks miserable Assessment: migraine CONNER PLAN: demerol + vistaril injection given, pt will go home & rest documented in this encounter Nursing Notes 09/22/2002 4:30 PM CST >> MANNY GUTIERREZ 09/22/2002 4:49 pm MIGRAINE BEGAN THIS A.M. NOT RESPONDING TO FIORCET. DEMERAL AND VISTARIL GIVEN I.M. PER DR. CURTIS'S ORDERS. documented in this encounter Plan of Treatment Not on filedocumented as of this encounter Visit Diagnoses Diagnosis Migraine, unspecified, without mention o f intractable migraine without mention of status migrainosus - Primary documented in this encounter Care Teams Cabinetmaker Maintenance Relationship Specialty Start Date End Date Amor Curtis MD PCP - General 09/24/01 05/05/13 [facility] [address] [place] [address] documented as of this encounter
--- OUTSIDE RECORDS SUMMARY | 2022-06-21 19:23 | XMS_ITS | Encounter Summary ---
:1965 Author Organization [place] Address [address] [place] [address] Care Team Providers Name Role Phone Nissa Cassidy DO Primary Care Provider [phone] Harriet Haley MD Primary Care Provider [phone] Encounter Details Date Type Department Care Team Description 02/08/2015 Surgery - [facility] Anamika Diane OR MD Jamin [address] [facility] [employer] [address] [address] [facility] [address] [place], [place] [address] (Wo rk) Social History Tobacco Use Types [...] - - Weight 99.8 kg (220 lb) 02/07/2015 8:00 AM CDT Height 175.3 cm (5' 9) 02/07/2015 8:00 AM CDT Body Mass Index 32.49 02/07/2015 8:00 AM CDT documented in this encounter Plan of Treatment Not on filedocumented as of this encounter Visit Diagnoses Not on filedocumented in this encounter Care Teams Mailing Machine Helper Relationship Specialty Start Date End Date Nissa Cassidy DO PCP - General Internal Medicine 05/06/13 09/30/[address] [address] Harriet Haley MD PCP - General Physician Mold Cleaner 10/01/[address] [id number] documented as of this encounter
--- OUTSIDE RECORDS SUMMARY | 2022-06-21 19:23 | XMS_ITS | Encounter Summary ---
:1965 Author Organization [place] Address [address] [place] [address] Care Team Providers Name Role Phone Amor Montgomery MD Primary Care Provider Reason for Visit Reason Comments Mantoux Administration Encounter Details Date Type Department Care Team Description 04/18/2002 Allied Health/Nurse [facility] Administration Visit Clinic [place] [address] [place] [address] Social History Tobacco Use Types Packs/Day Years Used Date Smoking Tobacco: Never Assessed Sex Assigned at Date Recorded Not on file documented as of this encounter Progress Notes 04/18/2002 9:15 AM CDT Addended by: BIANKA LARSON on: 04/21/2002,9:18 AM Comment: negative mantoux/ lrft forearm. read 07/11. 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 documented in this encounter Plan of Treatment Pending Results Name Type Priority Associated Diagnoses Date/Ti me TB INTRADERMAL TEST Immunization/Injecti Routine Counseling Ot her 04/20/2002 on Specified documented as of this encounter Procedures Procedure Name Priority Date/Time Associated Diagnosis Comme nts HC TB INTRADERMAL TEST Routine 04/20/2002 Counseling Other S pecified documented in this encounter Visit Diagnoses Diagnosis Other specified counseling - Primary documented in this encounter Care Teams Preparer Relationship Specialty Start Date End Date Amor Montgomery MD PCP - General 09/24/01 05/05/13 [place] [address] [place] [address] documented as of this encounter
--- OUTSIDE RECORDS SUMMARY | 2022-06-21 19:23 | XMS_ITS | Encounter Summary ---
:1965 Author Organization [place] Address [address] [place] [address] Care Team Providers Name Role Phone Amor Montgomery MD Primary Care Provider Encounter Details Date Type Department Care Team Description 05/12/2006 [facility] [address] [place], [place] [address] (Wo rk) Social History Tobacco Use Types [...] Procedure Name Priority Date/Time Associated Comments Diagnosis C FLUOROSCOPIC GUIDE Routine 05/12/2006 11:41 Res ults for this & LOCALIZATION, AM CDT procedure ar e in NEEDLE/CATHETER TIP, the res ults SPINE/PARASPINE section. DX/THERAPEUTIC INJECTION documented in this encounter Results FLUOROSCOPIC GUIDE & LOCALIZATION, NEEDLE/CATHETER TIP, SPINE/PARASPINE DX/THERAPEUTIC INJECTION(05/12/2006 11:41 AM CDT) [facility] Method Time Signature [facility] RADIOLOGY RESULT CERVICAL INTERLAMINAR EPIDURAL STEROID INJECTION - 6 RESULTS HISTORY: ??Left C7 radiculopathy. PROCEDURE: ??The procedure, indications, risks (including th e risk of infection, bleeding, contrast reaction, paralysis or ), and alternatives to therapy were discussed with the patient. Zahra vaughan informed consent was obtained. The patient was placed prone on the fluoroscopic table. The skin around the area to be injected was prepped and draped in the usual sterile fashion. ??Using ryan rile technique, fluoroscopic guidance, and 2ml of ??lidocaine 1% as local anesthetic, a 20 gauge 3-1/2 inch Tuohy needle was directed into the left C7-T1 interlaminar interspace. ??Using loss of resistan ce technique, the epidural space was penetrated. No aspirate wa s obtained. ??2ml of Isovue ??M-300 was injected and revealed a normal epidurogram. 2ml (12 mg) of Celestone and 2 ml of preservative-free salvador l saline was then injected into the epidural space. ??The patient roshni erated the procedure well, and no immediate complications were encounte red. The patient's pain levels (0-10 scale) were as follows: ?Pre- Injection ? Post-Injection Neck ?7 ? 7 Right Arm ?0 ? 0 Left Arm ?7 ? 7 IMPRESSION: ??Technically successful interlaminar cervical e pidural steroid injection. ??Long-term results are pending. Specimen (Source) Anatomical Collection Method Collection Time Re ceived Time Location / / Volume Laterality 05/12/2006 11:41 AM CDT Mumtaz Rushing MD PROCEDURES Performing Organization Address City/State/ZIP Code Phon e Number RADIOLOGY RESULTS documented in this encounter Visit Diagnoses Not on filedocumented in this encounter Care Teams Bonding Molder Relationship Specialty Start Date End Date Amor Montgomery MD PCP - General 09/24/01 05/05/13 [facility] [address] [place] [address] documented as of this encounter
--- OUTSIDE RECORDS SUMMARY | 2022-06-21 19:23 | XMS_ITS | Encounter Summary ---
:1965 Author Organization [place] Address [address] [place] [address] Care Team Providers Name Role Phone Amor Montgomery MD Primary Care Provider Reason for Referral Office Workup No CT/MRI (Routine) - Closed Specialty Diagnoses / Procedures Referred By Contact Refer red To Contact Diagnoses Closed fracture of unspecified phalanx or phalanges of hand Amor Montgomery MD [facility] [address] [place] [address] [place] [address] Phone: [phone] Referral ID Status Reason Start Date Expiration Date Visits Requ ested Visits Authorized [id number] Closed 07/26/2004 02/06/2005 1 4 ER SCREEN INSTALLER Encounter Details Date Type Department Care Team Description 07/26/2004 Orders Only [facility] Amor Montgomery FX PH ALANX, HAND Clinic Luly Hugo MD NOS-CLOSE (Primary Dx) [address] [place], [place] SYSTEM [address] [address] [phone] [place] [address] Social History Tobacco Use Types Packs/Day Years [...] Name Priority Date/Time Associated Diagnosis Comme nts ZZ CONSULT ORTHOPEDIC Routine 07/26/2004 Fx Phalanx, Hand Nos-Close GENERAL documented in this encounter Results CONSULT ORTHOPEDIC GENERAL (07/26/2004) Narrative This result has an attachment that is no t available. Amor Montgomery MD REFERRAL documented in this encounter Visit Diagnoses Diagnosis Closed fracture of unspecified phalanx o r phalanges of hand - Primary documented in this encounter Care Teams Supervisor Reactor Fueling Relationship Specialty Start Date End Date Amor Montgomery MD PCP - General 09/24/01 05/05/13 [place] [address] [place] [address] documented as of this encounter
--- OUTSIDE RECORDS SUMMARY | 2022-06-21 19:23 | XMS_ITS | Encounter Summary ---
:1965 Author Organization [place] Address [address] [place] [address]. [place] [address] Care Team Providers Name Role Phone Amor Curtis MD Primary Care Provider Reason for Visit Reason Comments Headache Sinus Problem Encounter Details Date Type Department Care Team Description 08/23/2003 Telephone [facility] Amor Curtis ramaan; Sinus Problem Clinic Luly Hugo MD [address] [place], [place] [address] [place] [address] [place] [address] [place] [address] [phone] Social History Tobacco Use Types Packs/Day Years Used Date Smoking Tobacco: Every Day Comments: LESS THAN 1 PPD Alcohol Use Standard Drinks/Week Comments Yes 0 (1 standard drink = 0.6 oz pure alcoho l) SMALL Sex Assigned at Date Recorded Not on file documented as of this encounter Miscellaneous Notes Telephone Encounter - 08/23/2003 11:59 PM ACID TANK CLEANER >> MANNY GUTIERREZ ThuAug 23, 2003 1:30 PM CALLED AND ADVISED OF APPT TIME. >> AMOR CURTIS ThuAug 23, 2003 11:13 AM Would check & see if I have an acute slot (or alternate MD) to see her this week [place] >> FRANK WHITAKER ThuAug 23, 2003 11:04 AM >> CALL RECEIVED. Contact: Pt c/o migraine CONNER x 2 days unrelived by Imitrex also sinus pain and pressure with green nasal drng. Please advise. documented in this encounter Plan of Treatment Not on filedocumented as of this encounter Visit Diagnoses Not on filedocumented in this encounter Care Teams Customer Engineering Specialist Relationship Specialty Start Date End Date Amor Curtis MD PCP - General 09/24/01 05/05/13 [facility] [address] [place] [address] documented as of this encounter
--- OUTSIDE RECORDS SUMMARY | 2022-06-21 19:23 | XMS_ITS | Encounter Summary ---
:1965 Author Organization [place] Address [facility] [address] Care Team Providers Name Role Phone Amor Montgomery MD Primary Care Provider Reason for Visit Reason Comments Derm Problem Rash on face, and chest. Eram n lips are itching. Encounter Details Date Type Department Care Team Description 10/20/2002 Office Visit [facility] Carlos Tomlinson M D NONSPECIF SKIN ERUPT Clinic [place] RETIRED NEC (Primary Dx) [address] [place] [address] [place] [address] Social History Tobacco Use Types Packs/Day Years Used Date Smoking Tobacco: Every Day Comments: LESS THAN 1 PPD Alcohol Use Standard Drinks/Week Comments Yes 0 (1 standard drink = 0.6 oz pure alcoho l) SMALL Sex Assigned at Date Recorded Not on file documented as of this encounter Last Filed Vital Signs Vital Sign Reading Time Taken Comments Blood Pressure 100/84 10/20/2002 1:00 PM SALESPERSON NEW CARS Pulse 80 10/20/2002 1:00 PM SALESPERSON NEW CARS Temperature 36.6 ??C (97.9 ??F) 10/20/2002 1:00 PM SALESPERSON NEW CARS Respiratory Rate - - Oxygen Saturation - - Inhaled Oxygen Concentration - - Weight 104.3 kg (230 lb) 10/20/2002 1:00 PM SALESPERSON NEW CARS Height 172.7 cm (5' 8) 10/20/2002 1:00 PM SALESPERSON NEW CARS Body Mass Index 34.97 10/20/2002 1:00 PM SALESPERSON NEW CARS documented in this encounter Progress Notes 10/20/2002 1:00 PM SALESPERSON NEW CARS S: For 1 1/2 days has had itchy rash on face and chest. Some swelling and burning of lips, too. No new meds; in fact, all of her meds are prn and she has not used any for at least 2 wk. Was on Levaq uin but finished it over a week ago. No other abx since. NO recent shellfish, nut, or berries. NO new foods recently. O: Mult papular lesions on face. Lips look normal. Few similar papular lesion s on chest, and perhaps some scattered ones on back. None on abd or arms. A: Appearance and hx sug gestive of drug rash, but she has not been on any meds recently. So wonder about food allergy, etc. P: 1% hyrdrocort cream tid prn and OTC Benadryl. Call primary MD in a few days if getting worse; m ay need derm consult then. documented in this encounter Plan of Treatment Not on filedocumented as of this encounter Visit Diagnoses Diagnosis Rash and other nonspecific skin eruption - Primary documented in this encounter Care Teams Geometry Tutor Relationship Specialty Start Date End Date Amor Montgomery MD PCP - General 09/24/01 05/05/13 [facility] [address] [place] [address] documented as of this encounter
--- OUTSIDE RECORDS SUMMARY | 2022-06-21 19:23 | XMS_ITS | Encounter Summary ---
:1965 Author Organization [place] Address [address] [place] [address] Care Team Providers Name Role Phone Amor Montgomery MD Primary Care Provider Encounter Details Date Type Department Care Team Description 03/11/2004 Orders Only [facility] HYP OTHYROIDISM NOS (Primary [facility] Dx) [address] [place] [address] Social History Tobacco Use Types [...] Name Priority Date/Time Associated Diagnosis Comme nts HCL TSH Routine 03/11/2004 9:36 AM Hypothyroidism Nos Res ults for this CDT procedure are i n the results section . documented in this encounter Results TSH- (03/11/2004 9:36 AM CDT) P athologist Signature TSH 4.10 0.4 - 5.0 [facility] mU/L CLINIC LAB Specimen Anatomical Collection Method Collection Time Receive d Time (Source) Location / / Volume Laterality 03/11/2004 9:36 AM 4 9:41 CDT AM CDT Amor Montgomery MD LABORATORY Performing Organization Address City/State/ZIP Code Phon e Number [facility] [address] [place] [address] [facility] documented in this encounter Visit Diagnoses Diagnosis Unspecified hypothyroidism - Primary documented in this encounter Care Teams Profile Mill Operator Tape Control Relationship Specialty Start Date End Date Amor Montgomery MD PCP - General 09/24/01 05/05/13 [place] [address] [place] [address] documented as of this encounter
--- OUTSIDE RECORDS SUMMARY | 2022-06-21 19:23 | XMS_ITS | Encounter Summary ---
:1965 Author Organization [place] Address [address] [place] [address] Care Team Providers Name Role Phone Amor Montgomery MD Primary Care Provider Reason for Visit Reason Comments Headache Encounter Details Date Type Department Care Team Description 08/24/2003 Office Visit [facility] JARON MontgomeryYROI DISM NOS (Primary Dx); [facility] [place] Amor Hugo MD MIGRAINE NOS W/O MENTN INTRACTABLE; 303 [facility] SINUSITIS [place], [place] [address] [place] [address] [place] [address] [phone] Social History Tobacco Use Types Packs/Day Years Used Date Smoking Tobacco: Every Day Comments: LESS THAN 1 PPD Alcohol Use Standard Drinks/Week Comments Yes 0 (1 standard drink = 0.6 oz pure alcoho l) SMALL Sex Assigned at Date Recorded Not on file documented as of this encounter Last Filed Vital Signs Vital Sign Reading Time Taken Comments Blood Pressure 102/60 08/24/2003 3:00 PM LOST CHARGE CARD CLERK Pulse 68 08/24/2003 3:00 PM LOST CHARGE CARD CLERK Temperature 37.3 ??C (99.1 ??F) 08/24/2003 3:00 PM LOST CHARGE CARD CLERK Respiratory Rate 16 08/24/2003 3:00 PM LOST CHARGE CARD CLERK Oxygen Saturation - - Inhaled Oxygen Concentration - - Weight 82.6 kg (182 lb) 08/24/2003 3:00 PM LOST CHARGE CARD CLERK Height - - Body Mass Index 27.67 10/20/2002 1:00 PM LOST CHARGE CARD CLERK documented in this encounter Progress Notes 08/24/2003 3:00 PM LOST CHARGE CARD CLERK SUBJECTIVE CC: Lizzie 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 HPI: Lizzie He presents with 6 day history of symptoms. Beginning on Thursday URI/sinus symptoms, Thursday dull headache, Thursday Migraine with headache beginning at base of skull and coming up and around the head to the left side of forehead. Symptoms include pain under left eye radiating to the left ear with some stabbing pain, nasal discharge began clear, developed b lood streaks, currentlygreenish, feeling of cotton behind eyes and in maxillary area, nausea, diz ziness, light sensitive, nonproductive cough, post nasal drip, and some chills. Has tried Vicodin, Im itrex, and Fioricet improvement for brief time, then symptoms resumed. Started on Synthroid last Nov , is she has improved a lot. PAST MEDICAL HISTORY: Review of patient's past medical history ind icates: MIGRAINE NOS W/O MENTN INTRACTABLE HERPES ZOSTER NOS PAST SURGICAL HISTORY: Review of patient's past surgical history indica irene: NONSPECIFIC PROCEDURE Comment: C SECTION X2 FAMILY H ISTORY: Review of patient's family history indicates: Diabetes Father Comment: HYPERTENSION ALSO Hypertension Mother C omment: THYROID ALSO SOCIAL HISTORY: Tobacco Use: Yes Packs/Day: Years: Comment: LESS THAN 1 PPD Alcohol Use: Yes Comment: SMALL OBJECTIVE: EXAM: BP 102/60 Pulse 68 Temp (Src) 99.1 (Oral) Resp 16 Wt 182 lbs (82.6kg) General: Alert, oriented, well h ydrated. Skin turgor normal. HEENT-EYES: normal, Conjunctivae normal Ears: External ears and canals a re normal. TM's translucent with normal bony landmarks. No erythemaor purulence, some cerumen prese nt NOSE: NORMAL and minimal congestion. Denies discomfort with maxillary pressure, positive discomfor twith frontal pressure THROAT: Posterior pharynx slight erythrina, no edema or exudate noted. Neck: no significant adenopathy. RESP: Easy respiration. Lungs clear to auscultation. Good air movement bi laterally without rales, wheezes, or rhonchi. CARDIAC: s1, s2, no s3, s4, or additional sounds. SESSMENT: Stated migraine headache with classical symptoms. Slight elevated temperature, pain with fr ontal pressure, pharynx erythema. Sinusitis with migraine PLAN: Seven day (samples) of Tequin, sampl es of Axert to try, RTW note resume work on Thursday08/28/03. Will call with up date on how Axsari works for her. Call if not showing significant improvement in 3 to 5 days or sooner if worsen. Call if s ymptoms not entirely resolved after completion of medication. Ludwin Baker RN, Student Nurse Practitioner Pt seen & examined.. agree with A & P AMOR MONTGOMERY M.D. documented in this encounter Nursing Notes 08/24/2003 3:00 PM CST >> MANNY GUTIERREZ 08/24/2003 2:59 pm HEADACHE FOR LAST 3 DAYS, ALSO HAS RUNNY NOSE AND ASINUS FACIAL PAIN. HAS USED IMITREX, FIORCET AND VICODIN. documented in this encounter Plan of Treatment Not on filedocumented as of this encounter Procedures Procedure Name Priority Date/Time Associated Diagnosis Comme nts HCL TSH Routine 08/24/2003 4:10 PM Hypothyroidism Nos Res ults for this LOST CHARGE CARD CLERK procedure are i n the results section . documented in this encounter Results TSH- (08/24/2003 4:10 PM LOST CHARGE CARD CLERK) athologist Signature TSH 1.41 0.4 - 5.0 [facility] [place] Specimen Anatomical Collection Method Collection Time Receive d Time (Source) Location / / Volume Laterality 08/24/2003 4:10 PM 4 4:15 LOST CHARGE CARD CLERK PM LOST CHARGE CARD CLERK Amor Montgomery MD LABORATORY Performing Organization Address City/State/ZIP Code Phon e Number [facility] [address] [place] [address] [place] [address] [facility] documented in this encounter Visit Diagnoses Diagnosis Unspecified hypothyroidism - Primary Migraine, unspecified, without mention o f intractable migraine without mention of status migrainosus Acute maxillary sinusitis documented in this encounter Care Teams Acid Treater Relationship Specialty Start Date End Date Amor Montgomery MD PCP - General 09/24/01 05/05/13 [place] [address] [place] [address] documented as of this encounter
--- OUTSIDE RECORDS SUMMARY | 2022-06-21 19:23 | XMS_ITS | Encounter Summary ---
:1965 Author Organization [place] Address [address] [place] [address] Care Team Providers Name Role Phone Amor Montgomery MD Primary Care Provider Nissa Cassidy DO Primary Care Provider [phone] Harriet Haley MD Primary Care Provider [phone] Encounter Details Date Type Department Care Team Description 06/12/2010 [facility] Sharri Vivar OR MD Sari [address] [place] [address] [facility] [address] [place] [address] 109 (Wo rk) Social History Tobacco Use [...] Name Priority Date/Time Associated Diagnosis Comme nts NON-GYNECOLOGIC Routine 06/12/2010 5:59 PM Result s for this CYTOLOGY CDT procedure are i n the results section. SURGICAL PATHOLOGY Routine 06/12/2010 5:30 PM Res ults for this EXAM CDT procedure are i n the results section. documented in this encounter Results Cytology, non-gynecologic (06/12/2010 5:59 PM CDT) Specimen Anatomical Collection Method Collection Time Receive d Time (Source) Location / / Volume Laterality 06/12/2010 5:59 PM 0 6:23 CDT PM CDT Narrative [facility] - 06/14/2010 2:06 PM CDT Case#: [id number] [facility] Status: Final Report MICRO/DIAGNOSIS: PERITONEAL/PELVIC WASHINGS: ? - NEGATIVE FOR MALIGNANT CELLS. COMMENT: The cytologic findings correlate with co rresponding ovarian pathology [id number]. Pathologist: Belle Leong ??Mickey Guallpa Electronically Signed [facility] CLINICAL INFORMATION: Clinical History: LOWER LEFT OVARIAN CARLIN N Reason for Procedure: LOWER LEFT QUADRAN T PAIN SPECIMEN DESCRIPTION: A) SOURCE: PERITONEAL WASH The Specimen consists of 100 mL of clear colorless fluid, from which: 1 Direct smear 1 SurePath slide is prepared. The following procedure codes have been billed on this case:1 X WASH/BRUSH CYTO (59510); ICD9: 620.1 glw This test was performed at: ?[facility] ?[address] ?[place], [place] ??[address] ?Phone n umber: [phone] CC: JERI VIVAR MD [phone] KJ CORTEZ MD [phone] CCEND: All histology slide preparation, stains and image analysis done at [facility] are performed at [facility], [address] [place] [address], [address], with f inal interpretation and frozen section analysis at the indicated laboratory. Date Collected: 06/12/10 ?Date Received : 06/13/10 Date Completed: 06/14/10 14:05 ?? Reques t: [phone] Jeri DEUTSCH - MARK JACKSON Performing Organization Address City/State/ZIP Code Phon e Number [facility] [place] [address] [facility] [address] [place] [address] LABORATORY Surgical Pathology Exam (06/12/2010 5:30 PM CDT) Specimen Anatomical Collection Method Collection Time Receive d Time (Source) Location / / Volume Laterality 06/12/2010 5:30 PM 0 5:46 CDT PM CDT Narrative [facility] - 06/14/2010 11:38 AM CDT Case#: [id number] [facility] Status: Final Report MICRO/DIAGNOSIS: LEFT OVARY AND FALLOPIAN TUBE, LEFT SALP INGO-OOPHORECTOMY: ? 1) BENIGN CORPUS LUTEAL AND FOLLI CULAR CYSTS ? 2) FALLOPIAN TUBE WITH SCATTERED BENIGN ENDOSALPINGIOTIC ?CYSTS ? 3) NO EVIDENCE OF MALIGNANCY. Pathologist: Belle Leong ??Mickey Guallpa ??(Electronically Signed) [facility] CLINICAL INFORMATION: Lower left abdominal pain Surgeon/Performing MD.........SIMI VIVAR SPECIMEN SUBMITTED : A) OVARY, W/ TUBE, LEFT GROSS DESCRIPTION: A) SOURCE: OVARY, W/ TUBE, LEFT Submitted in formalin in a container lab eled with the patient's name and designated left tube and ovary is a tuboovarian complex that weighs 9 grams. The ovary is focall y disrupted and it has a nodular and cystic consistency (3 x 2.5 x 1.6 cm in greatest dimensions). The attached congested fall opian tube measures 3.5 cm in length and 0.5 cm in diameter. It has an eccentrically located stricture, suggestive of past tu bal ligation. Sectioning of the ovary reveals a benign appearing cyst with an orange-yellow wall. The cyst measures 2 x 1.6 x 1.4 cm in greatest dimensions. Sectioning of the f allopian tube reveals no significant lesions. RS-2C ??S:jka The following procedure codes have been billed on this case:1 X LEVEL 4-G&M (16885); ICD9: 620.1 This test was performed at: ?[facility] ?[address] [facility] [place] ??[address] ?Phone n umber: [phone] CC: JERI VIVAR MD [phone] KJ CORTEZ MD [phone] CCEND: All histology slide preparation, stains and image analysis done at [facility] are performed at [facility], [address] [place] [address], [id number], with f inal interpretation and frozen section analysis at the indicated laboratory. Date Collected: 06/12/10 ? Alejandro e Received: ??06/13/10 Date Completed: 06/14/10 11:38 ?? Reques t: [phone] Jeri Vivar MD [facility] Performing Organization Address City/State/ZIP Code Phon e Number [facility] [place] [address] [facility] [address] [place] [address] LABORATORY documented in this encounter Visit Diagnoses Not on filedocumented in this encounter Care Teams Production Analyst Relationship Specialty Start Date End Date Amor Montgomery MD PCP - General 09/24/01 05/05/13 [facility] [address] [place] [address] Nissa Cassidy DO PCP - General Internal Medicine 05/06/13 09/30/[address] [place] [address] Harriet Haley MD PCP - General Physician Pit Recorder 10/01/15 [facility] [address] [place] [address] documented as of this encounter
--- OUTSIDE RECORDS SUMMARY | 2022-06-21 19:23 | XMS_ITS | Encounter Summary ---
:1965 Author Organization [place] Address [address] [place] [address] Care Team Providers Name Role Phone Amor Montgomery MD Primary Care Provider Reason for Visit Reason Comments RECHECK Encounter Details Date Type Department Care Team Description 10/14/2002 Office Visit [facility] Amor Montgomery [facility]; Clinic Luly Kelly MD TOBACCO USE DISORDER [address] [place] [address] [place] [place] [address] [place] [address] [phone] Social History Tobacco Use Types Packs/Day Years Used Date Smoking Tobacco: Every Day Comments: LESS THAN 1 PPD Alcohol Use Standard Drinks/Week Comments Yes 0 (1 standard drink = 0.6 oz pure alcoho l) SMALL Sex Assigned at Date Recorded Not on file documented as of this encounter Last Filed Vital Signs Vital Sign Reading Time Taken Comments Blood Pressure 122/78 10/14/2002 11:15 AM NURSE MANAGER Pulse - - Temperature - - Respiratory Rate 16 10/14/2002 11:15 AM NURSE MANAGER Oxygen Saturation - - Inhaled Oxygen Concentration - - Weight 82.6 kg (182 lb) 10/14/2002 11:15 AM NURSE MANAGER Height - - Body Mass Index - - documented in this encounter Progress Notes 10/14/2002 11:15 AM NURSE MANAGER Follow-up visit: 1. Migraine CONNER's 2. 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 Prior trials of imitrex & maxalt of borderline value, but recent Axert samples did help , however, the CONNER later reoccurred. She has not been on prophylactic meds before such as B-lalitha s or amitriptyline Review of patient's past medical history indicates: MIGRAINE NOS W/O MENTN INTR ACTABLE HERPES ZOSTER NOS Current prescriptions: FIORICET 325-50-40 MG OR TABS Blood pressure 122/78, resp. rate 16, weight 182 lbs (82.555 kg). neck a little tight chest clear heart reg no edema Assessment: Migraine Conner's Smoking c essation planning PLAN: 1. I gave pt our migraine informational booklet 2. Rx's written for Zyban, n icotine patches 3. Trial Amerge & zomig samples 4. future option of prophylactic rx as mentioned yamila kelly documented in this encounter Nursing Notes 10/14/2002 11:15 AM CST >> MANNY GUTIERREZ 10/14/2002 11:04 am HERE FOR F/U ON MIGRAINES. documented in this encounter Plan of Treatment Not on filedocumented as of this encounter Visit Diagnoses Diagnosis Headache(784.0) Headache Tobacco use disorder documented in this encounter Care Teams Technology Specialist Relationship Specialty Start Date End Date Amor Montgomery MD PCP - General 09/24/01 05/05/13 [facility] [address] [place] [address] documented as of this encounter
--- OUTSIDE RECORDS SUMMARY | 2022-06-21 19:23 | XMS_ITS | Encounter Summary ---
:1965 Author Organization [place] Address [address] [place] [address] Care Team Providers Name Role Phone Amor Montgomery MD Primary Care Provider Reason for Referral Consultation - Closed Specialty Diagnoses / Procedures Referred By Contact Refer red To Contact Diagnoses Other specified disorder of skin Amor Montgomery MD [facility] [address] [place] [id number] Referral ID Status Reason Start Date Expiration Date Visits Requ ested Visits Authorized [id number] Closed Other 11/03/2002 08/09/2011 1 1 RIDER Reason for Visit Reason Comments Derm Problem Encounter Details Date Type Department Care Team Description 11/03/2002 Office Visit [facility] Amor Montgomery SKIN DISORDERS [facility] Luly Hugo MD (Primary Dx) [address] [place], [place] [address] [address] [place] [address] [phone] Social History Tobacco Use Types Packs/Day Years Used Date Smoking Tobacco: Every Day Comments: LESS THAN 1 PPD Alcohol Use Standard Drinks/Week Comments Yes 0 (1 standard drink = 0.6 oz pure alcoho l) SMALL Sex Assigned at Date Recorded Not on file documented as of this encounter Last Filed Vital Signs Vital Sign Reading Time Taken Comments Blood Pressure 138/78 11/03/2002 11:45 AM BULL RIDER Pulse - - Temperature - - Respiratory Rate - - Oxygen Saturation - - Inhaled Oxygen Concentration - - Weight 81.4 kg (179 lb 8 oz) 11/03/2002 11:45 AM BULL RIDER Height - - Body Mass Index 27.29 10/20/2002 1:00 PM BULL RIDER documented in this encounter Progress Notes 11/03/2002 11:45 AM BULL RIDER 9Pt in with unusual pruritic dermatitis on face only. Has tried changing diet, avoiding makeup etc,to no avail. No new meds or exposures. Does have pierced ears & wears earrings but ears don't seem to bother her. Does not have much history of allergy in past exam= fine maculo-papular erythema on face; minimally elevated; only on face & upper neck. Assessment: Allergic dermatitis; ? contact derm from earrings? PLAN: Low dose medrol po + topical 1% HC cream; referral to derm given if no better documented in this encounter Nursing Notes 11/03/2002 11:45 AM CST >> STEPHANIE ANDRES 11/03/2002 11:40 am FOLLOW UP RASH ON FACE AND NECK. GETTING IN ONE MONTH. documented in this encounter Plan of Treatment Not on filedocumented as of this encounter Procedures Procedure Name Priority Date/Time Associated Diagnosis Comme nts ZZ CONSULT DERMATOLOGY Routine 12/21/2002 Skin Disorders Nec documented in this encounter Results CONSULT DERMATOLOGY (12/21/2002) Narrative This result has an attachment that is no t available. Amor Montgomery MD REFERRAL documented in this encounter Visit Diagnoses Diagnosis Other specified disorder of skin - Prima ry documented in this encounter Care Teams Instrument Repair Specialist Relationship Specialty Start Date End Date Amor Montgomery MD PCP - General 09/24/01 05/05/13 [place] [address] [place] [address] documented as of this encounter
--- OUTSIDE RECORDS SUMMARY | 2022-06-21 19:23 | XMS_ITS | Encounter Summary ---
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 [address] [address] [place] [address] Social History Tobacco Use Types Packs/Day Years [...] 8:00 AM CDT documented in this encounter Medications at Time of Discharge Medication Sig Dispensed Refills Start Date End Date DULoxetine HCl (CYMBALTA Take 120 mg by 0 PO) mouth every evening LEVOTHYROXINE SODIUM PO Take 88 mcg by 0 mouth daily EFFEXOR XR 75 MG OR CP24 1 qam to titrate to 60 0 10/01/2015 2 qam FIORICET 50-325-40 MG OR 1 TABLET EVERY 4 30 0 05/2810/01/2015 TABS HOURS NEEDED Gabapentin (NEURONTIN PO) 0 10/01/2015 HYDROCODONE-ACETAMINOPHEN 1 CAPSULE EVERY 4 30 0 10/01/2015 10-325 MG OR TABS HOURS NEEDED LORAZEPAM 1 MG OR TABS 1 tab q 8h prn for 10 0 12/1410/01/2015 anxiety ZYBAN 150 MG OR TBCR 1 tab QD (Once per 0 10/01/2015 day)x3 days then 1 tab BID (Twice per day) x 6 weeks documented as of this encounter H&P Notes Lizzie Duron MD - 02/08/2015 7:24 AM CDT History and Physical Update I have examined the patient and reviewed the history and physical that is present on this chart. Thechanges in the patient's history and physical condition are as follows: None Lizzie Y Domi documented in this encounter Miscellaneous Notes Op Note - Lizzie Duron MD - 02/08/2015 8:48 AM CDT Operative report date of service 02/08/2015 Preoperative diagnosis #1 right ovarian cyst #2 right pelvic pain next Postoperative diagnoses same Procedure: pelviscopy, pelvic washings, biopsy anterior cul-de-sac, right salpingo-oophorectomy Findings: The right ovary looked multicystic. There is no surface of the ovary that did not appear to have an underlying cyst. It was about 4 x 4 centimeters. The surface was smooth with no excrescences. The tube appeared normal. There were no adhesions. Left tube and ovary and uterus were surgically absent. There were some smooth excrescences along anterior cul-de-sac at the site of previous hysterectomy. These were only on the incision line. There was no ascites. Liver edge appeared normal. Gallbladder and appendix were surgically absent. There were just a few omental adhesions in the area of appendectomy otherwise no adhesions. The bowel appeared normal, and nondistended both ureters were seen p eristalsing in normal position. No other findings were seen to account for her right-sided pain other than the multicystic ovary. Also there was no evidence of torsion of the ovary. Technique after satisfactory induction of general anesthesia the patient was prepped and draped in his dorsal lithotomy position. A Vasquez catheter was placed. After a timeout by the team procedure was commenced. Local anesthetic was injected inferior to the umbilicus a small transverse incision was made and the varies needle placed. Placement was confirmed by the hanging drop technique and the abdomen was insufflated with 3 L of carbon dioxide gas at low filling pressure. The varies needle was withdrawn and 5 mm laparoscopic trocar placed. A 5 mm suprapubic trocar and probe were placed in a small midline incision, first injecting with local anesthetic. Findings are as above. Decision was made to re move the multicystic right ovary as there was no other obvious cause for pain and no way to feasiblydrain every cyst in the ovary. Biopsy was taken of one of the polypoid projections along the anterior cul-de-sac scar and sent for permanent section. Pelvic washings were also done. The right infundibulopelvic ligament was cauterized with the LigaSure instrument and cut. The tube and ovary were then placed in the Endo Catch bag which was placed through the suprapubic port which was changed out to a 10-12 port and an accessory 5 mm port was made in the right lower quadrant prior to ovarian removal. The ovary and tube were brought up to the surface as close as possible and the ovary morcellated from w ithin the bag using a Harrod. With removal of the last bit of tissue bag ruptured and a small piece of the ovary was dropped into the abdominal cavity. This was retrieved and brought out through the 10 trocar. Pelvic cavity was thoroughly irrigated and suctioned. Hemostasis was assured. Excess gas was let out of the abdomen and instruments removed under direct vision and the skin incisions closed with4-0 Monocryl. Vasquez catheter was removed and the patient was awakened and taken to recovery in suspect her condition sponge and needle counts reported as correct. Anesthesia: Gen. Consultations: None Tissues removed: Pelvic washings, anterior cul-de-sac biopsy, right tube and ovary surgeons: Lizzie Duron Please send a copy to Dr. Tere [facility] Signed Lizzie Duron documented in this encounter Plan of Treatment Not on filedocumented as of this encounter Procedures Procedure Name Priority Date/Time Associated Diagnosis Comme nts LAB RESULT - HIM 02/12/2015 5:39 PM SCAN CDT LAB RESULT - HIM 02/12/2015 11:39 AM SCAN CDT SURGICAL PATHOLOGY Routine 02/08/2015 8:11 AM Res ults for this EXAM CDT procedure are i n the results section. NON-GYNECOLOGIC Routine 02/08/2015 8:06 AM Result s for this CYTOLOGY CDT procedure are i n the results section. ECG 12-LEAD WITH Routine 02/08/2015 5:48 AM Resul ts for this MUSE ? CDT procedure are in [facility] the results section. IMAGING OTHER - [facility] 02/08/2015 SCAN EKG CARDIAC - HIM 02/08/2015 SCAN EKG CARDIAC - [facility] 02/08/2015 SCAN documented in this encounter Results LAB RESULT - HIM SCAN (02/12/2015 5:39 PM CDT) Specimen (Source) Anatomical Location Collection Method / Collectio n Time Received Time / Laterality Volume Narrative This result has an attachment that is no t available. Historical Provider NON-BEAKER LAB TESTING LAB RESULT - HIM SCAN (02/12/2015 11:39 AM CDT) Specimen (Source) Anatomical Location Collection Method / Collectio n Time Received Time / Laterality Volume Narrative This result has an attachment that is no t available. Historical Provider NON-BEAKER LAB TESTING (ABNORMAL) Surgical Pathology Exam (02/08/2015 8:11 AM CDT) [facility] Method Time Signature Case Report Surgical Pathology ?Case: [id number] ? 02/12/2015 [facility] 11:39 AM [facility] Authorizing Provider: ??Anamika Duron MD ? Ordering Provider: ?? Lizzie Duron MD ? T [facility] Ordering Location: ? [facility] OR ? Collected: ? 02/08/2015 0811 ? NIK IZQUIERDO Pathologist: ? Jamshid Mayer MD ? Received: ?02/08/2015 1150 ? Specimens: ?? A) - Other, Bi opsy ??Anterior ??Cul de sac ? B) - Ovar y and Fallopian Tube, Right, Right Tube and Ovary ? Final A) ANTERIOR CUL DE SAC, BIOPSY: 02/13/20 15 [facility] Diagnosis ?? 1) BENIGN CONNECTIVE TIS TIAN STROMA AND ABUNDANT HYALINIZED TISSUE WITH 11:39 AM [facility] ?FEATURES OF CORPUS ALBICANS CDT NABIL'S ?? 2) NO TUMOR SEEN LABORATOR Y B) RIGHT FALLOPIAN TUBE AND OVARY, SALPINGO-OOPHORECTOMY: ?? 1) BENIGN OVARY WITH HEMORRHAGIC CORPUS LUTEUM CYST ?? 2) BENIGN FALLOPIAN TUBE WITHOUT SIGNIFICANT HISTOPATHOL OGIC ?ABNORMALITY ?? 3) ADNEXAL TISSUE WITH ENDOSALPINGIOSIS ?? 4) NEGATIVE FOR MALIGNANCY a t 11:38 AM Clinical Clinical history: ?Right ovarian cyst [620.2] Pelvic pain [[id number]] 02/12/2015 HEALTH Information Reason for procedure: ?Not provided 11:39 AM [facility] Time placed in formalin: 8:13 a.m. [facility] Gross A) Submitted in formalin in a container labeled with the patient's name and designated biopsy anterior cul de sac is a fragment of dennis good tissue measuring 0.5 x 0.5 x 0.2 cm in greatest dimensions. ??B&TE-1C ?? 02/12/2015 [facility] Description 11:39 AM [facility] B) Submitted in formalin in a container labeled with the patient's name and designated right tube and ovary are multiple fragments of pink-dennis to good tissue including a portion of fallopian tube (4 cm CDT NABIL'S in length and 0.5 cm in diam eter) and disrupted portions of congested ovary (4.5 x 3.8 x 2 cm in greatest dimensions). Some portions of the ovarian tissue are suggestive of a cystic lesion with the grea LABORATORY test discernible dimension o f the cyst measuring 2.8 cm. Sectioning of the fallopian tube reveals no distinct lesions. ??RS-3C ??BHS:sg Charges CPT: ?42238 X 2 02/12/2015 [facility] ICD9: ?? 620.1 11:39 AM [facility] Result Flag Abnormal (A) Normal 02/12/2015 [facility] 11:39 AM [facility] Comment: All histology slide preparation, stains and image analysis done ? [facility] are performed at [facility] ? [address] [place] [address], [place], [address], with f rosendoapstor interpretation and ? frozen section analysis at the indicated laboratory. Specimen Anatomical Collection Method Collection Time Receive d Time (Source) Location / / Volume Laterality Tissue specimen TOPOGRAPHY UNKNOWN 02/08/2015 8:11 AM 02/08/2015 (specimen) / Unknown CDT 11:50 AM CDT Lizzie Duron MD [facility] Performing Organization Address City/State/ZIP Code Phon e Number [facility] [place] [address] [address] [facility] [address] [place] [address] LABORATORY Cytology, non-gynecologic (02/08/2015 8:06 AM CDT) [facility] Method Time Signature Case Report Medical Cytology ?Case: [id number] ? 02/12/2015 [facility] 5:39 PM [facility] Authorizing Provider: ??Anamika Duron MD ? Ordering Provider: ?? Lizzie Duron MD ? CDT [facility] Ordering Location: ? [facility] OR ? Collected: ? 02/08/2015 0806 ? LABOR ATORY Pathologist: ? Adriana Fang MD ?Received: ?02/08/2015 0832 ? Specimen: ?Pelvis Washin g, Pelvic Washing with Lactated Ringer ? General Path Negative for malignant cells Negative 02/13/[address] [place] [address] Interpretation at ??5:39 PM for 5:39 PM [facility] malignant CDT TASHIS cells, LABORATORY Non-Diagnos tic Lab AP PELVIC WASHINGS, SUBMITTED FOR CYTOLOGIC EXAM: 02/12/2015 [facility] Micro/Diagnosis ??1) NO MALIGNANT CELLS IDENTIFIED 5:39 PM [facility] ??2) MESOTHELIAL CELLS PRESENT CDT ISSACS Electronically signed by Adriana Fang MD on 5 at ??5:39 PM LABORATORY Comment Please see the 02/12/2015 [facility] concurrent 5:39 PM [facility] surgical CDT NABIL'S pathology report LABORATORY ([id number]). Specimen 300 ml cloudy pale red fluid 02/12/2015 [facility] Description 5:39 PM [facility] 1 Air dried slide CDT ISSACS 1 [employer] slid LABORATORY Are prepared. CPT: ? 59426 ICD9: ?620.1 Comment: All histology slide preparation, stains and image analysis done ? at [facility] are performed at [facility] [address] [place], [address], with f inal interpretation and ? frozen section analysis at the indicated laboratory. Specimen Anatomical Collection Method Collection Time Receive d Time (Source) Location / / Volume Laterality Specimen of 02/08/2015 8:06 AM 5 8:32 unknown material CDT AM CDT (specimen) (Pelvis Washing) Lizzie Duron MD [facility] Performing Organization Address City/State/ZIP Code Phon e Number [facility] [place] [address] [facility] [address] [place] [id number] [place] [address] ECG 12-LEAD WITH MUSE (LHE) (02/08/2015 5:48 AM CDT) Component Value Ref Range Test Analysis Performed Pathologis t Method Time At Signature Systolic Blood mmHg 02/08/2015 Pressure 4:26 PM CDT Diastolic Blood mmHg 02/08/2015 Pressure 4:26 PM CDT Ventricular Rate 87 BPM 02/08/2015 4:26 PM CDT Atrial Rate 87 BPM 02/08/2015 4:26 PM CDT WV Interval 158 ms 02/08/2015 4:26 PM CDT QRS Duration 80 ms 02/08/2015 4:26 PM CDT QT 372 ms 02/08/2015 4:26 PM CDT QTc 447 ms 02/08/2015 4:26 PM CDT P [place] 57 degrees 02/08/2015 4:26 PM CDT R AXIS 11 degrees 02/08/2015 4:26 PM CDT T [place] 40 degrees 02/08/2015 4:26 PM CDT Interpretation Normal sinus rhythm 02/08/2015 ECG Low voltage QRS 4:26 PM Cannot rule out Anterior infarct , age undetermined CDT Abnormal ECG No previous ECGs available Confirmed by BRENNA ??SHAWN MONTILLA LOC:ISSAC ([id number]) on 02/08/2015 4:26 :06 PM Specimen (Source) Anatomical Collection Method Collection Time Re ceived Time Location / / Volume Laterality 02/08/2015 5:48 AM CDT Lizzie Duron MD ECG ORDERABLES Performing Organization Address City/State/ZIP Code Phon e Number HE CARDIOLOGY CONVERSION IMAGING OTHER - HIM SCAN (02/08/2015) Anatomical Region Laterality Modality Other Specimen (Source) Anatomical Location Collection Method / Collectio n Time Received Time / Laterality Volume Narrative This result has an attachment that is no t available. Historical Provider IMG IR ORDERABLES EKG CARDIAC - HIM SCAN (02/08/2015) Specimen (Source) Anatomical Location Collection Method / Collectio n Time Received Time / Laterality Volume Narrative This result has an attachment that is no t available. Historical Provider ECG ORDERABLES EKG CARDIAC - HIM SCAN (02/08/2015) Specimen (Source) Anatomical Location Collection Method / Collectio n Time Received Time / Laterality Volume Narrative This result has an attachment that is no t available. Historical Provider ECG ORDERABLES documented in this encounter Visit Diagnoses Diagnosis Ovarian cyst, right Other and unspecified ovarian cyst documented in this encounter Care Teams Cattle Feeder Relationship Specialty Start Date End Date Nissa Cassidy DO PCP - General Internal Medicine 05/06/13 09/30/[address] [address] documented as of this encounter
--- OUTSIDE RECORDS SUMMARY | 2022-06-21 19:23 | XMS_ITS | Encounter Summary ---
:1965 Author Organization [place] Address [address] [place] [address] Care Team Providers Name Role Phone Amor Montgomery MD Primary Care Provider Encounter Details Date Type Department Care Team Description 10/14/2002 Abstract [facility] Patricia Null [address] [place] [address] Social History Tobacco Use Types Packs/Day Years [...] Name Priority Date/Time Associated Diagnosis Comme nts ABSTRACT [facility] REPORT Routine 10/14/2002 documented in this encounter Results ABSTRACT [facility] REPORT (10/14/2002) Narrative This result has an attachment that is no t available. Patricia Null LABORATORY documented in this encounter Visit Diagnoses Not on filedocumented in this encounter Care Teams Preparing Box Tender Relationship Specialty Start Date End Date Amor Montgomery MD PCP - General 09/24/01 05/05/13 [facility] [address] [place] [address] documented as of this encounter
--- OUTSIDE RECORDS SUMMARY | 2022-06-21 19:23 | XMS_ITS | Encounter Summary ---
:1965 Author Organization [place] Address [facility] [place] [facility] [address] Care Team Providers Name Role Phone Amor Montgomery MD Primary Care Provider Reason for Visit Reason Comments Refill Request Encounter Details Date Type Department Care Team Description 06/28/2002 Telephone [facility] [place] Berumen, Refill Request Clinic Luly MONTILLA [address] [place] [address] [place] [address] [place], [place] [phone] (Wo rk) [address] [phone] Social History Tobacco Use Types Packs/Day Years Used Date Smoking Tobacco: Never Assessed Sex Assigned at Date Recorded Not on file documented as of this encounter Miscellaneous Notes Telephone Encounter - 06/28/2002 11:59 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 MESSAGE LEFT WITH A MAN AT HER PHONE # THAT DR. BERUMEN'S OFFICE CALLED AND SHE CAN BEAM MACHINE OPERATOR HER SAMPLES AT OUR [employer]. >> DEVONTE ROCHA Gris Jun 30, 2002 1:06 PM Message left on answering machine for patient to call back regarding phone message, also samples of imitrex 50mg at front window cashier for her to try.. >> GUILHERME BERUMEN Gris Jun 30, 2002 12:08 PM can try Imitrex 50 mg 1 po at the onset of CONNER rpt q2hrly if CONNER persists ,do not exeed more than 4 tabs in 24 hr period.can have samples if available. >> CHERIE Bland Jun 28, 2002 1:58 PM >> CALL RECEIVED. Contact: may leave message pt c/o migranes that are coming more frequent and more severe. Use to come just before her period bu t now coming with stress. Last migrane was last , getting one now. You had given her an rx l ast time she saw you. She cannot remeber the name - med worked originally but not when she took it l ast. No appt with you this week.The chart has been requested. Can she try Imitrex(pt request)? documented in this encounter Plan of Treatment Not on filedocumented as of this encounter Visit Diagnoses Not on filedocumented in this encounter Care Teams Reordering Clerk Relationship Specialty Start Date End Date Amor Montgomery MD PCP - General 09/24/01 05/05/13 [facility] [address] [place] [address] documented as of this encounter
--- OUTSIDE RECORDS SUMMARY | 2022-06-21 19:23 | XMS_ITS | Encounter Summary ---
:1965 Author Organization [place] Address [address] [place] [address] Care Team Providers Name Role Phone Amor Montgomery MD Primary Care Provider Encounter Details Date Type Department Care Team Description 04/18/2002 [facility] ERR ONEOUS Visit Clinic [place] ENCOUNTER--DISREGARD [address] (Primary Dx) [place] [address] Social History Tobacco Use Types Packs/Day Years Used Date Smoking Tobacco: Never Assessed Sex Assigned at Date Recorded Not on file documented as of this encounter Plan of Treatment Not on filedocumented as of this encounter Visit Diagnoses Diagnosis ERRONEOUS ENCOUNTER--DISREGARD - Primary documented in this encounter Care Teams Apartment House Manager Relationship Specialty Start Date End Date Amor Montgomery MD PCP - General 09/24/01 05/05/13 [facility] [address] [place] [address] documented as of this encounter
--- OUTSIDE RECORDS SUMMARY | 2022-06-21 19:23 | XMS_ITS | Encounter Summary ---
:1965 Author Organization [place] Address [facility] [place] [address] Care Team Providers Name Role Phone Nissa Cassidy Primary Care Provider Reason for Visit Reason Comments Abdominal Pain Encounter Details Date Type Department Care Team Description 02/14/[address] [facility] Radha Levine MD Abdominal pain Hospital Emergency [address] [facility] [place] [address] [place] [address] [place] [address] [phone] Social History Tobacco Use Types Packs/Day Years [...] - - Weight 99.8 kg (220 lb) 02/14/2015 4:59 PM CDT Height 175.3 cm (5' 9) 02/14/2015 4:59 PM CDT Body Mass Index 32.49 02/14/2015 4:59 PM CDT documented in this encounter Medications [...] 6 weeks documented as of this encounter ED Notes Jaclyn Keeann PA-C - 02/14/2015 5:19 PM CDT eMERGENCY dEPARTMENT eNCOUnter CHIEF COMPLAINT Chief Complaint Patient presents with ??? Abdominal Pain HPI Lizzie He is a 49 y.o. female with a history of anxiety, depression, fibromyalgia, migraines, cardiac arrhythmia, HLD, hypothyroid, ankylosing spondylitis, and ovarian cysts who presents to the Emergency Department from her OB clinic for evaluation of abdominal pain. The patient reports she had her right ovary removed one week ago. Today she began experiencing burning lower abdominal pain, nausea, light headedness, chills, and shakiness. She denies chest pain, SOB, back pain, or emesis. She denies fever currently, but reports that she had one when her temperature was taking at her clinic.Patient endorses 3 post op wounds on her abdomen. She notes that the wound below her belly button has been open and painful since the procedure. The patient had her left ovary and uterus removed in previous procedure due to ovarian cysts. She denies any recent alcohol use. This document serves as a record of services personally performed by Jaclyn Keenan PA-C. It was created on her behalf by Kunal Rios, a trained electromedical equipment technician. The creation of this record is based onthe scribe's observations of the work being performed by Jaclyn Keenan PA-C and the provider's statements to him/her. This document has been checked and approved by the attending provider. PAST MEDICAL HISTORY Past Medical History Diagnosis Date ??? History of anesthesia complications ??? PONV (postoperative nausea and vomiting) ??? Anxiety ??? Depression ??? Fibromyalgia ??? Migraines ??? Cardiac arrhythmia ??? Hyperlipidemia ??? Disease of thyroid gland hypothyroidism ??? Ankylosing spondylitis ??? Right ovarian cyst ??? Pelvic pain SURGICAL HISTORY Past Surgical History Procedure Laterality Date ??? section, classic X2 ??? Appendectomy ??? Cholecystectomy ??? Hysterectomy ??? Left oophorectomy ??? Cervical disc surgery 2005 with hardware ??? Diagnostic laparoscopy Right 02/08/2015 Procedure: PELVISCOPY RIGHT SALPINGO OOPHORECTOMY PELVIC WASHING BIOPSY OF ANTERIOR CUL DE SAC; Surgeon: Lizzie Duron MD; Location: [facility]; Service: CURRENT MEDICATIONS Current Outpatient Rx Name Route Sig Dispense Refill ??? adalimumab (HUMIRA) 40 mg/0.8 mL injection Subcutaneous Inject 40 mg under the skin every 14 (fourteen) days. ??? atorvastatin (LIPITOR) 10 MG tablet Oral Take 10 mg by mouth 2 (two) times a week. Takes on Tuesdays + ??? cholecalciferol, vitamin D3, 1,000 unit tablet Oral Take 2,000 Units by mouth daily. ??? DULOXETINE HCL (CYMBALTA ORAL) Oral Take 120 mg by mouth bedtime. ??? ibuprofen (ADVIL,MOTRIN) 200 MG tablet Oral Take 800 mg by mouth 3 (three) times a day as needed for pain. ??? levothyroxine (SYNTHROID, LEVOTHROID) 88 MCG tablet Oral Take 88 mcg by mouth daily. ??? nicotine (NICODERM CQ) 21 mg/[address] 1 patch on the skin daily. ??? oxyCODONE-acetaminophen (PERCOCET) 5-325 mg per tablet Oral Take 1-2 tablets by mouth every 4 (four) hours as needed for pain. 30 tablet 0 ??? pregabalin (LYRICA) 150 MG capsule Oral Take 300 mg by mouth every morning. ??? pregabalin (LYRICA) 150 MG capsule Oral Take 150 mg by mouth bedtime. ??? verapamil (CALAN-SR) 240 MG CR tablet Oral Take 240 mg by mouth every evening. ALLERGIES Allergies Allergen Reactions ??? Pneumococcal Vaccine Other (See Comments) Arm very red and hot at injection site ??? Augmentin [Amoxicillin-Pot Clavulanate] Rash ??? Bactrim [Sulfamethoxazole-Trimethoprim] Rash ??? Ceftin [Cefuroxime Axetil] Rash ??? Macrobid [Nitrofurantoin Monohyd/M-Cryst] Rash FAMILY HISTORY No family history on file. SOCIAL HISTORY History Social History ??? Marital Status: Spouse Name: N/A Number of Children: N/A ??? Years of Education: N/A Social History Main Topics ??? Smoking status: Current Every Day Smoker -- 1.00 packs/day ??? Smokeless tobacco: Not on file ??? Alcohol Use: Yes Comment: rarely ??? Drug Use: No ??? Sexual Activity: Not on file Other Topics Concern ??? Not on file Social History Narrative ??? No narrative on file REVIEW OF SYSTEMS Review of Systems Constitutional: Positive for chills. Negative for fever. Respiratory: Negative for shortness of breath. Cardiovascular: Negative for chest pain. Gastrointestinal: Positive for nausea and abdominal pain. Negative for vomiting. Musculoskeletal: Negative for back pain. Skin: Positive for wound. Neurological: Positive for light-headedness. All systems negative except as marked. PHYSICAL EXAM VITAL SIGNS: BP 160/74 Pulse 93 Temp(Src) 98.2 ??F (36.8 ??C) (Oral) Resp 20 Ht 5' 9 (1.753m) Wt 220 lb (99.791 kg) BMI 32.47 kg/m2 SpO2 98% General Appearance: Alert, cooperative, no distress, appears stated age Head: Normocephalic without obvious deformity, atraumatic Eyes: Conjunctiva clear, Lids normal. Ear, Nose, Throat: Face nontraumatic, moist mucus membranes Neck: Supple, no lymphadenopathy, no evidence of meningismus Lungs: No distress. Lungs clear to ausculation bilaterally. No wheezes, rhonchi or stridor Heart:: Regular rate and rhythm, no murmur, rub or gallop Abdomen: Soft, healing laproscopic incisions over umbilicus, RLQ and suprapubic region. Moderate lower abdominal tenderness to palpation, worse in RLQ. normal bowel sounds Musculoskeletal: Normal ROM. No edema. No tenderness. Skin: Warm, dry, no rashes or lesions Neurologic: Alert and orientated appropriately. No focal deficits. Psych: Normal mood and affect RADIOLOGY CT ABDOMEN PELVIS WO ORAL W IV CONTRAST Final Result: CONCLUSION: 1. No acute abnormality apparent. LAB RESULTS Results for orders placed during the hospital encounter of 02/14/15 HM2(CBC W/O DIFFERENTIAL) Result Value Ref Range WBC 13.3 (*) 4.0-11.0 thou/uL RBC 4.65 3.80-5.40 mill/uL Hemoglobin 15.0 12.0-16.0 g/dL Hematocrit 43.9 35.0-47.0 % MCV 94 80-100 fL MCH 32.3 27.0-34.0 pg MCHC 34.2 32.0-36.0 g/dL RDW 13.8 11.0-14.5 % Platelets 346 140-440 thou/uL MPV 8.3 7.0-10.0 fL URINALYSIS,MACRO REFLEX MICRO, UC IF INDICATED Result Value Ref Range Color, UA Yellow Colorless, Yellow, Straw, Light Yellow Clarity, UA Clear Clear Glucose, UA Negative Negative Bilirubin, UA Negative Negative Ketones, UA Negative Negative, 60 mg/dL Specific [place], UA 1.005 1.001-1.030 Blood, UA Negative Negative pH, UA 6.5 4.5-8.0 Protein, UA Negative Negative mg/dL Urobilinogen, UA <2.0 E.U./dL <2.0 E.U./dL, 2.0 E.U./dL Nitrite, UA Negative Negative Leukocytes, UA Negative Negative ED COURSE & MEDICAL DECISION MAKING 49-year-old female presenting with abdominal pain 1 week post a right oophorectomy. She initially presented to her ObGyn and given her pain and they referred her onto the emergency department. On arrival here her vitals are stable and she is afebrile. Her incisions look good. She has mild tenderness ov er the lower abdomen. White count is slightly elevated at 13.3. Her UA is normal. Pelvic exam did not reveal any gross discharge. CT scan was obtained for any postop infection, bleeding or other acute pathology. CT scan was unremarkable. Discussed findings with patient. At this time no emergent findings noted. She is stable for discharge. We will discharge her with a small amount of pain medication and encouraged follow-up with ObGyn. Should she have worsening pain or other symptoms she knows to return to the emergency department. FINAL IMPRESSION Abdominal pain Discharge Medication List as of 02/14/2015 7:58 PM START taking these medications Details oxyCODONE-acetaminophen (PERCOCET) 5-325 mg per tablet Take 1 tablet by mouth every 6 (six) hours asneeded for pain., Starting 02/14/2015, Until Discontinued, Print Jaclyn Will PA-C, personally performed the services described in this documentation , as scribed by Kunal Rios in my presence, and it is both accurate and complete. Jaclyn Keenan PA-C 02/14/15 9031 Radha Babb MD - 02/14/2015 5:19 PM CDT Emergency Department Attending Supervision Note I have personally seen and examined patient. Case reviewed and discussed with LEEANNE. I have reviewed and agreed with the PMH, FH, SOC, ROS. Please see today's note by LEEANNE. LEEANNE Care under my supervision. Armstrong Exam: General: Alert, lying on the bed in NAD Neuro: Awake alert; moving extremities x 4 face symterical Eyes: sclera nonicteric conjunctiva clear Mouth: mmm Heart: RRR Lungs: breathing comfortably Abdomen: soft Mild diffuse tenderness to palpation no rebound; no guarding +BS Pelvic: PA will complete Back: no CVA tenderness Extremities: no pedal edema Skin: Abdominal wounds from laparotomy C/D/I Assessment: Post Op Abdominal pain Armstrong Medical Decision Making/Plan: No peritoneal signs at this time and no evidence of acute pathology including abscess or perforationon CT.I reviewed the armstrong imaging and labs. Patient has Mild leukocytosis which is non specific Pelvic exam was unremarkable, and patient has no sxs to suggest UTI. I feel patient is safe to be discharged to home at this time. However, it is unclear what is causing her pain. She was feeling better in the ER and will plan to f/u closely with her OB physician. However she will return with any worsening symtpoms. Author: MD Radha Quintana MD 02/16/15 1427 documented in this encounter Plan of Treatment Not on filedocumented as of this encounter Procedures Procedure Name Priority Date/Time Associated Diagnosis Comme nts CT ABDOMEN PELVIS W Routine 02/14/2015 6:51 PM Re sults for this CONTRAST CDT procedure are i n the results section. documented in this encounter Results CT Abdomen Pelvis w Contrast (02/14/2015 6:51 PM CDT) Anatomical Region Laterality Modality Abdomen/Pelvis, SUBRAD CT BODY, UMP CT ABDOMEN PELVIS, Computed Tomography RAD CT Specimen (Source) Anatomical Location Collection Method / Collectio n Time Received Time / Laterality Volume Impressions 02/14/2015 7:02 PM CDT CONCLUSION: 1. ??No acute abnormality apparent. Narrative 02/14/2015 7:[address] ABDOMEN PELVIS WO ORAL W IV CONTRAST 02/14/2015 6:51 PM ? INDICATION: ABD PAIN, FEVER, POST-OP, NO RECENT CT TECHNIQUE: CT abdomen and pelvis. Multip lanar reformation images (MPR). IV CONTRAST: Iohexol (Omni) 100 mL COMPARISON: None. FINDINGS: LUNG BASES: Negative. ABDOMEN: The gallbladder is surgically a bsent. The liver spleen pancreas adrenal glands and both kidneys appear normal. No hydronephrosis. Bowel loops are nondistended. No adenopathy. I do not visualize appendix but I see no evidence for appe ndicitis. PELVIS: The uterus is surgically absent. The bladder is unremarkable. MUSCULOSKELETAL: Negative. Procedure Note Luis Matta - 01/13/2021Formatting o f this note might be different from the original. CT ABDOMEN PELVIS WO ORAL W IV CONTRAST 02/14/2015 6:51 PM INDICATION: ABD PAIN, FEVER, POST-OP, NO RECENT CT TECHNIQUE: CT abdomen and pelvis. Multip lanar reformation images (MPR). IV CONTRAST: Iohexol (Omni) 100 mL COMPARISON: None. FINDINGS: LUNG BASES: Negative. ABDOMEN: The gallbladder is surgically a bsent. The liver spleen pancreas adrenal glands and both kidneys appear normal. No hydronephrosis. Bowel loops are nondistended. No adenopathy. I do not visualize appendix but I see no evidence for appendicitis. PELVIS: The uterus is surgically absent. The bladder is unremarkable. MUSCULOSKELETAL: Negative. IMPRESSION: CONCLUSION: 1. No acute abnormality apparent. Jaclyn Keenan PA-C IMMayi CT ORDERABLES documented in this encounter Visit Diagnoses Diagnosis Abdominal pain Abdominal pain, unspecified site documented in this encounter Care Teams Bookkeeper Receptionist Relationship Specialty Start Date End Date Nissa Cassidy DO PCP - General Internal Medicine 05/06/13 09/30/[address] [address] documented as of this encounter
--- OUTSIDE RECORDS SUMMARY | 2022-06-21 19:23 | XMS_ITS | Encounter Summary ---
:1965 Author Organization [place] Address [address] [place] [address] Care Team Providers Name Role Phone Amor Curtis MD Primary Care Provider Reason for Visit Reason Comments Medication Request anxiety over dental work Encounter Details Date Type Department Care Team Description 12/15/2003 [facility] Luly Hguo MD (anxiety over dental [address] [facility] work) [place], [place] SYSTEM [address] [address] [phone] [place] [address] Social History Tobacco Use Types Packs/Day Years Used Date Smoking Tobacco: Every Day Comments: LESS THAN 1 PPD Alcohol Use Standard Drinks/Week Comments Yes 0 (1 standard drink = 0.6 oz pure alcoho l) SMALL Sex Assigned at Date Recorded Not on file documented as of this encounter Miscellaneous Notes Telephone Encounter - 12/15/2003 11:59 PM CDT >> STEPHANIE DOMÍNGUEZ ThuDecember 15, 2003 10:32 AM LMOM to go and p/u Rx. >> AMOR CURTIS ThuDecember 15, 2003 10:06 AM I sent in a Rx to use as needed.. take about an hour before going to dentist >> ISABELLA MESA ThuDecember 15, 2003 9:29 AM >> CALL RECEIVED. Contact: Scheduled for extensive dental work on 12/19/03. Is experiencing anxiety and requesting treatment. Please advise. documented in this encounter Plan of Treatment Not on filedocumented as of this encounter Visit Diagnoses Not on filedocumented in this encounter Care Teams Branch Office Manager Relationship Specialty Start Date End Date Amor Curtis MD PCP - General 09/24/01 05/05/13 [place] [id number] [place] [address] documented as of this encounter
--- OUTSIDE RECORDS SUMMARY | 2022-06-21 19:23 | XMS_ITS | Encounter Summary ---
:1965 Author Organization [place] Address [address] [place] [address] Care Team Providers Name Role Phone Amor Montgomery MD Primary Care Provider Encounter Details Date Type Department Care Team Description 06/03/2006 [facility] Results [address] [address] [place], [place] [address] (Wo rk) Social History [...] Associated Comments Diagnosis C FLUOROSCOPIC GUIDE Routine 06/03/2006 2:30 PM R esults for this & LOCALIZATION, CDT procedure ar e in NEEDLE/CATHETER TIP, the res ults SPINE/PARASPINE section. DX/THERAPEUTIC INJECTION documented in this encounter Results FLUOROSCOPIC GUIDE & LOCALIZATION, NEEDLE/CATHETER TIP, SPINE/PARASPINE DX/THERAPEUTIC INJECTION(06/03/2006 2:30 PM CDT) [facility] Method Time Signature IMAGECAST RADIOLOGY RESULT CERVICAL INTERLAMINAR EPIDURAL STEROID INJECTION - 6 RESULTS HISTORY: ??Left C7 radicular pain. PROCEDURE: ??The procedure, indications, risks (including th [...] ??Using ryan rile technique, fluoroscopic guidance, and 2 ml of lidocaine 1% a s local anesthetic, a 20 gauge 3-1/2 inch Tuohy needle was directed into the left C7-T1 interlaminar interspace. ??Using loss of resistan ce technique, the epidural space was penetrated. No aspirate wa s obtained. ??Isovue ??M-300 was injected and revealed a salvador l epidurogram. 2 ml (120 mg) of Depo-Medrol and 2 ml of preservative-free n ormal saline was then injected into the epidural space. ??The andrews ent tolerated the procedure well, and no immediate complications were encountered. The patient's pain levels (0-10 scale) were as follows: ?Pre- Injection ? Post-Injection Neck ? 6 ? 5 Right Arm ? 0 ? 0 ?? Left Arm ? 5 ? 4 (tingling) IMPRESSION: ??Technically successful interlaminar cervical e pidural steroid injection. ??Long-term results are pending. Specimen (Source) Anatomical Collection Method Collection Time Re ceived Time Location / / Volume Laterality 06/03/2006 2:30 PM CDT Vanessa Keyes NP PROCEDURES Performing Organization Address City/State/ZIP Code Phon e Number RADIOLOGY RESULTS documented in this encounter Visit Diagnoses Not on filedocumented in this encounter Care Teams Cylinder Dyer Relationship Specialty Start Date End Date Amor Montgomery MD PCP - General 09/24/01 05/05/13 [facility] [address] [place] [address] documented as of this encounter
--- OUTSIDE RECORDS SUMMARY | 2022-06-21 19:23 | XMS_ITS | Encounter Summary ---
:1965 Author Organization [place] Address [address] [place] [address] Care Team Providers Name Role Phone Amor Montgomery MD Primary Care Provider Reason for Visit Reason Comments Consult Encounter Details Date Type Department Care Team Description 09/21/2002 Office Visit [facility] Amor Montgomery ABDOM INAL PAIN EPIGASTRIC (Primary Dx); Clinic Luly Hugo MD ACUTE MAXILLARY SINUSITIS [address] [place], [place] [address] [place] [address] [place] [address] [place] [address] [phone] Social History Tobacco Use Types Packs/Day Years Used Date Smoking Tobacco: Every Day Comments: LESS THAN 1 PPD Alcohol Use Standard Drinks/Week Comments Yes 0 (1 standard drink = 0.6 oz pure alcoho l) SMALL Sex Assigned at Date Recorded Not on file documented as of this encounter Last Filed Vital Signs Vital Sign Reading Time Taken Comments Blood Pressure 128/70 09/21/2002 4:00 PM PHARMACIST ASSISTANT Pulse 68 09/21/2002 4:00 PM PHARMACIST ASSISTANT Temperature 37.1 ??C (98.8 ??F) 09/21/2002 4:00 PM PHARMACIST ASSISTANT Respiratory Rate 16 09/21/2002 4:00 PM PHARMACIST ASSISTANT Oxygen Saturation - - Inhaled Oxygen Concentration - - Weight 81.6 kg (180 lb) 09/21/2002 4:00 PM PHARMACIST ASSISTANT Height - - Body Mass Index - - documented in this encounter Progress Notes 09/21/2002 4:00 PM PHARMACIST ASSISTANT Pt in with a very prolonged URI, now with facial pain, pain in upper teeth and bloody/greenish nasal discharge. But now also for 24 hrs has steady epigastric pain with intensity that waxes & wanesand is also felt up a little ways into lower chest. No radiation into back. She has used ibuprofen spora dically for some shoulder pain. She is a 1 ppd smoker. Blood pressure 128/70, pulse 68, temperature 98.8, resp. rate 16, weight 180 lbs (81.647 kg). L TM is red; R TM OK throat OK, no exudate no cervi sadaf nodes + marked maxillary tenderness bilateral chest clear abdomen= mild tenderness in epigastrium & RUQ; otherwise normal no rash/edema Assessment: 1. sinusitis 2. gastritis; will R/O h pylori; les s likely is GB disease PLAN: levaquin 500 qd x 10days, expectorant Nexium 40 qd samples check h.pyl tavon bre call if abd. sx not better soon & will do a GB US. no ibuprofen documented in this encounter Nursing Notes 09/21/2002 4:00 PM CST >> MANNY GUTIERREZ 09/21/2002 4:05 pm MID-STERNAL CHEST PAIN CONSTANT FOR 24 HRS,HAS HAD RECENT HEAD COLD,AND IS C/O INCREASED FATIGUE. documented in this encounter Plan of Treatment Not on filedocumented as of this encounter Procedures Procedure Name Priority Date/Time Associated Comments Diagnosis HCL HEPATIC PANEL Routine 09/21/2002 4:45 PM Abdominal Pain Re sults for this PHARMACIST ASSISTANT Epigastric procedure are i n the results section. HCL HELICOBACTER Routine 09/21/2002 4:45 PM Abdominal Pain Res ults for this PYLORI BRE IGG PHARMACIST ASSISTANT Epigastric procedure are in the results section. HEMOGRAM Routine 09/21/2002 4:45 PM Abdominal Pain Results for this PHARMACIST ASSISTANT Epigastric procedure are i n the results section. documented in this encounter Results (ABNORMAL) A.M.A. HEPATIC PANEL (09/21/2002 4:45 PM PHARMACIST ASSISTANT) Analysis Performed At Patho logis Time Signature Bilirubin 0.0 0.0 - 0.3 [place] Conjugated mg/dL [facility] Bilirubin Delta 0.1 0.0 - 0.4 [place] mg/dL [facility] Bilirubin Total 0.2 0.2 - 1.3 [place] mg/dL [facility] Albumin 4.4 3.3 - 4.6 [place] g/dL [facility] Protein Total 8.6 (H) 6.0 - 8.2 [place] g/dL [facility] Alkaline 84 40 - 150 [place] Phosphatase U/L [facility] ALT 24 0 - 50 U/L [facility] AST 25 0 - 45 U/L [facility] Specimen Anatomical Collection Method Collection Time Receive d Time (Source) Location / / Volume Laterality 09/21/2002 4:45 PM 3 4:46 PHARMACIST ASSISTANT PM PHARMACIST ASSISTANT Amor Montgomery MD LABORATORY Performing Organization Address City/[facility]/ZIP Code Phon e Number [facility] [address] [place] [address] [facility] HEMOGRAM (09/21/2002 4:45 PM PHARMACIST ASSISTANT) P athologist Signature WBC 10.1 4.0 - 11.0 [facility] 10e9/L CLINIC LAB RBC Count 4.88 3.8 - 5.2 [facility] 10e12/L CLINIC LAB Hemoglobin 15.6 11.7 - 15.7 [facility] g/dL CLINIC LAB Hematocrit 46.0 35.0 - 47.0 [facility] % CLINIC LAB MCV 94 78 - 100 fl [facility] MCH 32.0 26.5 - 33.0 [facility] pg [facility] MCHC 34.0 32.0 - 36.0 [facility] g/dL CLINIC LAB RDW 11.3 10.0 - 15.0 [facility] % [facility] Specimen Anatomical Collection Method Collection Time Receive d Time (Source) Location / / Volume Laterality 09/21/2002 4:45 PM 3 4:46 PHARMACIST ASSISTANT PM PHARMACIST ASSISTANT Amor Montgomery MD LABORATORY Performing Organization Address City/[facility]/ZIP Code Phon e Number [place] [address] [place], [place] [address] [address] [facility] HELICOBACTER PYLORI BRE IGG (09/21/2002 4:45 PM PHARMACIST ASSISTANT) Component Value Ref Test Analysis Performed At [facility] gist Range Method Time Signature Specimen Serum [facility] Heliobacter No detectable IgG antibody t o Helicobacter pylori. If current infection is [place] pylori Antibody suspected, please submit a new specimen in 4 to 6 we eks. [facility] Report status FINAL [id number] [facility] Specimen Anatomical Collection Method Collection Time Receive d Time (Source) Location / / Volume Laterality 09/21/2002 4:45 PM 3 4:46 PHARMACIST ASSISTANT PM PHARMACIST ASSISTANT Amor Montgomery MD LABORATORY Performing Organization Address City/State/ZIP Code Phon e Number [facility] [address] [place] [id number] [facility] documented in this encounter Visit Diagnoses Diagnosis Abdominal pain, epigastric - Primary Acute maxillary sinusitis documented in this encounter Care Teams Bricklayer Tender Relationship Specialty Start Date End Date Amor Montgomery MD PCP - General 09/24/01 05/05/13 [facility] [address] [place] [address] documented as of this encounter
--- OUTSIDE RECORDS SUMMARY | 2022-06-21 19:23 | XMS_ITS | Encounter Summary ---
:1965 Author Organization [place] Address [address] [place] [address] Care Team Providers Name Role Phone Amor Montgomery MD Primary Care Provider Reason for Visit Reason Onset Date Comments Refill Request 05/20/2005 synthroid Encounter Details Date Type Department Care Team Description 05/20/2005 Refill [facility] Mikel Montgomery Refill Request Luly Hugo MD (synthroid) [address] [place], [place] SYSTEM [address] [address] [phone] [place] [address] (Wo rk) Social History Tobacco Use Types Packs/Day Years Used Date Smoking Tobacco: Every Day Comments: LESS THAN 1 PPD Alcohol Use Standard Drinks/Week Comments Yes 0 (1 standard drink = 0.6 oz pure alcoho l) SMALL Sex Assigned at Date Recorded Not on file documented as of this encounter Miscellaneous Notes Telephone Encounter - Denisha Moreno - 05/20/2005 10:19 AM CDT Last OV 08/24/03. Last fill 04/16/05. To to review as nurse cannot authorize refill d/t last OV and TSH >1yr ago. documented in this encounter Plan of Treatment Not on filedocumented as of this encounter Visit Diagnoses Not on filedocumented in this encounter Care Teams Solar Sales Rep Relationship Specialty Start Date End Date Amor Montgomery MD PCP - General 09/24/01 05/05/13 [place] [address] [place] [address] documented as of this encounter
--- OUTSIDE RECORDS SUMMARY | 2022-06-21 19:23 | XMS_ITS | Encounter Summary ---
:1965 Author Organization [place] Address [address] [place] [address]. [place] [address] Care Team Providers Name Role Phone Nissa Cassidy Primary Care Provider [phone] Reason for Visit Reason Comments Dental Pain Encounter Details Date Type Department Care Team Description 05/06/2013 Emergency [facility] Chad Hardy P ain in [facility] Emergency Dep t (Primary Dx) [address] [facility] [place] [address] 5433 [facility] [phone] [place] [phone] (Wo rk) Social History Tobacco Use Types Packs/Day Years Used Date Smoking Tobacco: Every Day Comments: LESS THAN 1 PPD Alcohol Use Standard Drinks/Week Comments Yes 0 (1 standard drink = 0.6 oz pure alcoho l) SMALL Sex Assigned at Date Recorded Not on file documented as of this encounter Last Filed Vital Signs Vital Sign Reading Time Taken Comments Blood Pressure 159/98 05/06/2013 3:54 AM CDT Pulse - - Temperature 36.9 ??C (98.4 ??F) 05/06/2013 3:54 AM CDT Respiratory Rate 20 05/06/2013 3:54 AM CDT Oxygen Saturation 99% 05/06/2013 3:54 AM CDT Inhaled Oxygen Concentration - - Weight - - Height - - Body Mass Index - - documented in this encounter Discharge Instructions Discharge InstructionsChad Hardy MD - 05/06/2013 4:06 AM CDT FOLLOW UP WITH YOUR DENTIST SOON POSSIBLE. Discharge Instructions Dental Pain You have been seen today for a toothache. Your pain may be caused by an exposed nerve, an infection (pulpitis), a root abscess, or other problems. You will need to see a dentist for a solution to your tooth problem. Emergency Department care is only to help control your problem until you can see a dentist. Today, we did not find any sign that your toothache was caused by a serious condition, but sometimes symptoms develop over time and cannot be found during an emergency visit, so it is very important that you follow up with your dentist. Return to the Emergency Department if: You develop a fever over 101 degrees Fahrenheit You can???t open your mouth normally, can???t move your tongue well, or can???t swallow You have new or increased swelling of your face or neck. You develop drainage of pus or foul smelling material from around your tooth. What can I do to help myself? Take any antibiotic the doctor may have prescribed for you today. Avoid very hot or very cold foods as both can cause pain. Make an appointment to see a dentist as soon as possible. If you wish, we can provide you with a list of low-cost dental clinics. Remember that you can always come back [...] Take 88 mcg by 0 mouth daily penicillin V potassium Take 1 tablet (500 40 tablet 0 05/0605/16/2013 (VEETID) 500 MG tablet mg) by mouth 4 times daily for 10 days EFFEXOR XR 75 MG OR CP24 1 [...] documented as of this encounter ED Notes Chioma Cassidy RN - 05/06/2013 3:59 AM CDT Pt to ER with c/o right upper tooth, pain x 12hours, painful to tap teeth together. Chad Hardy MD - 05/06/2013 3:56 AM CDT History Chief Complaint: Dental Pain HPI Lizzie He is a 47 year old female who presents to the ED at 0358 with complaints of dentalpain in tooth number 3. The patient reports her pain starting suddenly at approximately 0400. She states the pain gradually worsened throughout the night and rates her pain a 8/10 in severity. She reports that the pain began to radiate to her right cheek bone, and also experienced swelling in her cheek. She adds that she has taken Ibuprofen, Excedrin and Tylenol with minimum relief. She denies any fever, nausea or vomiting. The patient voices no other concerns or complaints at this time. Allergies: Unspecified allergy to an antibiotic Medications: Cymbalta Levothyroxine Neurontin Floricet Lorazepam Hydrocodone Effexor Zyban Past Medical History: Migraine Herpes Zoster Past Surgical History: section x2 Family History: Positive for hypertension, thyroid disease and diabetes. Social History: Marital Status: [2] The patient is a current everyday smoker 1ppd, and reports occasionally consuming alcohol. Review of Systems Constitutional: Negative for fever. HENT: Positive for dental pain, right cheek pain swelling. Gastrointestinal: Negative for nausea and vomiting. All other systems reviewed and are negative. Physical Exam Vital Signs: BP: 159/98 mmHg Heart Rate: 87 Temp: 98.4 ??F (36.9 ??C) Resp: 20 SpO2: 99 % Physical Exam Constitutional: Non-toxic appearance. Well appearing female with no signs objective signs of discomfort. HENT: Right Ear: Tympanic membrane normal. Left Ear: Tympanic membrane normal. Mouth/Throat: Uvula is midline and oropharynx is clear and moist. Oropharynx: Tenderness to tooth #3 with no associated fracture. No edema, fluctuance or discharge at the base of the tooth. No trismus, sublingual edema or pooling of secretions. Eyes: Conjunctivae normal are normal. Pupils are equal, round, and reactive to light. Neck: Trachea normal. Neck supple. No pain with manipulation of the hyoid. Cardiovascular: Normal rate, regular rhythm and normal heart sounds. No murmur heard. Pulmonary/Chest: Effort normal and breath sounds normal. No respiratory distress. Abdominal: Soft. Normal appearance. There is no tenderness. Musculoskeletal: No gross deformity to all four extremities. Lymphadenopathy: She has no cervical adenopathy. Skin: Skin is warm, dry and intact. Psychiatric: Her affect is blunt. Emergency Department Course Procedures: PROCEDURE: Dental Block LOCATION: Superior periosteal nerve block ANESTHESIA: Regional block using 0.5% Bupivacaine without epinephrine, total of 5cc. COMMENTS: The patient tolerated the procedure well with good relief of his discomfort and there wereno complications. Interventions: Bupivicaine, 0.5%, IV. ED Course: Nursing notes and vitals reviewed. I performed an exam of the patient as documented above. The patient reported good relief of symptoms after the above interventions. Findings and plan explained to the patient. Patient discharged home, status improved, with instructions regarding supportive care, medications, and reasons to return as well as the importance of close follow-up was reviewed. Impression & Plan Medical Decision Making: Lizzie He is a 63 year old female seen in the ED for dental pain to tooth number 3. The patient has no obvious evidence of periapical abscess, there is no findings concerning for Lemierre???s syndrome or Álvaro???s angina. The patient likely has early pulpitis. The patient underwent superior periosteal nerve block at tooth number 3 with adequate anesthesia. She will be placed on Penicillin and encouraged to use Tylenol and Ibuprofen as needed for pain control. She is encouraged to follow up with her dentist as soon as possible. Diagnosis: 1. Upper jaw pain I, Amol Calle, am serving as a scribe on 05/06/2013 at 3:56 AM to personally document services performed by Dr. Mijares based on my observations and the provider's statements to me. Amol Calle 05/06/2013 [facility] EMERGENCY DEPARTMENT Chad Hardy MD 05/06/13 6152 documented in this encounter Plan of Treatment Not on filedocumented as of this encounter Visit Diagnoses Diagnosis Pain in upper jaw - Primary Jaw pain documented in this encounter Active and Recently Administered Medications Care Teams Can Cleaner Relationship Specialty Start Date End Date Nissa Cassidy DO PCP - General Internal Medicine 05/06/13 09/30/[address] [address] documented as of this encounter
--- OUTSIDE RECORDS SUMMARY | 2022-06-21 19:23 | XMS_ITS | Encounter Summary ---
:1965 Author Organization [place] Address [address] [place] [address] Care Team Providers Name Role Phone Amor Montgomery MD Primary Care Provider Nissa Cassidy DO Primary Care Provider Harriet Haley MD Primary Care Provider [phone] Encounter Details Date Type Department Care Team Description 01/27/2003 [facility] Amor Montgomery EN COUNTER (Primary Clinic Luly Hugo MD Dx) [address] [place], [place] [address] [place] [address] [place], [place] [address] [phone] (Wo rk) Social History Tobacco Use Types [...] as of this encounter Visit Diagnoses Diagnosis ER ENCOUNTER - Primary documented in this encounter Care Teams Surgical Consultant Relationship Specialty Start Date End Date Amor Montgomery MD PCP - General 09/24/01 05/05/13 [facility] [address] [place] [address] Nissa Cassidy DO PCP - General Internal Medicine 05/06/13 09/30/[address] [address] Harriet Haley MD PCP - General Physician Retort Cooler 10/01/15 [facility] [address] [place], [place] [address] documented as of this encounter
--- OUTSIDE RECORDS SUMMARY | 2022-06-21 19:23 | XMS_ITS | Encounter Summary ---
:1965 Author Organization [place] Address [address] [place] [address] Care Team Providers Name Role Phone Amor Montgomery MD Primary Care Provider Reason for Visit Reason Comments Refill Request Encounter Details Date Type Department Care Team Description 2003 Refill [facility] Amor Tubbs MD Refill Request [facility] [address] [facility] [address] [place] [address] [place] [address] [phone] (Wo rk) Social History Tobacco Use Types Packs/Day Years Used Date Smoking Tobacco: Every Day Comments: LESS THAN 1 PPD Alcohol Use Standard Drinks/Week Comments Yes 0 (1 standard drink = 0.6 oz pure alcoho l) SMALL Sex Assigned at Date Recorded Not on file documented as of this encounter Miscellaneous Notes Telephone Encounter - 2003 11:59 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 Contact: Pt [phone] Ok to leave detailed msg Patient request refill Bottle states last refilled 11-06-02 at [facility]. Last seen 08-24-03 for Migraine documented in this encounter Plan of Treatment Not on filedocumented as of this encounter Visit Diagnoses Not on filedocumented in this encounter Care Teams Student Support Services Director Relationship Specialty Start Date End Date Amor Montgomery MD PCP - General 09/24/01 05/05/13 [place] [address] [place] [address] documented as of this encounter
--- OUTSIDE RECORDS SUMMARY | 2022-06-21 19:23 | XMS_ITS | Encounter Summary ---
:1965 Author Organization [place] Address [address] [place] [address] Care Team Providers Name Role Phone Amor Montgomery MD Primary Care Provider Encounter Details Date Type Department Care Team Description 01/27/2003 Orders Only [facility] Amor Montgomery--LEFT HAND Clinic Luly Hugo MD & LEFT ELBOW X-RAY [address] [facility] ( Primary Dx) [place], [place] [address] [place] [place] [address] [place] [address] [phone] Social History Tobacco Use Types Packs/Day Years [...] Priority Date/Time Associated Diagnosis Comme nts HC X-RAY HAND >=3 VIEWS Routine 01/27/2003 documented in this encounter Results X-RAY HAND 3+ VW (01/27/2003) Anatomical Region Laterality Modality Other Narrative This result has an attachment that is no t available. Amor Montgomery MD GENERAL IMAGING documented in this encounter Visit Diagnoses Diagnosis [facility]--LEFT HAND & LEFT ELBOW X-RA Y - Primary documented in this encounter Care Teams Dental Services Director Relationship Specialty Start Date End Date Amor Montgomery MD PCP - General 09/24/01 05/05/13 [place] [address] [place] [address] documented as of this encounter
--- OUTSIDE RECORDS SUMMARY | 2022-06-21 19:23 | XMS_ITS | Encounter Summary ---
:1965 Author Organization [place] Address [address] [place] [address] Care Team Providers Name Role Phone Nissa Cassidy DO Primary Care Provider [phone] Harriet Haley MD Primary Care Provider [phone] Encounter Details Date Type Department Care Team Description 02/07/2015 [facility] [address] [place] [address] [place], [place] [phone] [address] Social History Tobacco Use Types Packs/Day Years Used Date Smoking Tobacco: Every Day Comments: LESS THAN 1 PPD Alcohol Use Standard Drinks/Week Comments Yes 0 (1 standard drink = 0.6 oz pure alcoho l) SMALL Sex Assigned at Date Recorded Not on file documented as of this encounter OR Notes Anesthesia Postprocedure Evaluation - Historical Provider - 02/08/2015 10:08 AM CDT Patient: Lizzie He Procedure(s): PELVISCOPY RIGHT SALPINGO OOPHORECTOMY PELVIC WASHING BIOPSY OF ANTERIOR CUL DE SAC Anesthesia type: general Patient location: PACU Last vitals: Filed Vitals: 02/08/15 1000 BP: 143/65 Pulse: 90 Temp: 37 ??C (98.6 ??F) Resp: 14 SpO2: 93% Post vital signs: stable Level of consciousness: awake and responds to simple questions Post-anesthesia pain: pain controlled Post-anesthesia nausea and vomiting: no Pulmonary: unassisted, return to baseline Cardiovascular: stable and blood pressure at baseline Hydration: adequate Anesthetic complications: no Additional Notes: Anesthesia Preprocedure Evaluation - Historical Provider - 02/08/2015 6:55 AM CDT Anesthesia Evaluation History of anesthetic complications (P.O. n/v) Airway Mallampati: II Neck ROM: full Pulmonary - normal exam (+) a smoker Cardiovascular - normal exam (+) dysrhythmias (h/o palpitations), ECG reviewed Neuro/Psych (+) neuromuscular disease (fibromyalgia), depression, Endo/Other - negative ROS (+) hypothyroidism, GI/Hepatic/Renal - negative ROS Other findings: Ankylosing spondylitis---lower back Dental - normal exam Anesthesia Plan Planned anesthetic: general endotracheal ASA 2 Induction: intravenous Anesthetic plan and risks discussed with: patient and spouse Anesthesia plan special considerations: antiemetics, Post-op plan: routine recovery documented in this encounter Miscellaneous Notes Anesthesia Care Transfer Note - Historical Provider - 02/08/2015 8:49 AM CDT Last vitals: Filed Vitals: 02/08/15 0848 BP: 152/78 Pulse: 105 Temp: 37.1 ??C (98.8 ??F) Resp: 16 SpO2: 100% Patient awake, adequate tidal volume/respiratory rate, following commands, extubated to 100% face mask, to Pacu on oxygen, vital signs stable, report given Patient's level of consciousness is drowsy Spontaneous respirations: yes Maintains airway independently: yes Dentition unchanged: yes Oropharynx: oropharynx clear of all foreign objects I completed my SBAR handoff to the receiving nurse per policy and procedure. documented in this encounter Plan of Treatment Not on filedocumented as of this encounter Visit Diagnoses Not on filedocumented in this encounter Care Teams Piano Case Maker Relationship Specialty Start Date End Date Nissa Cassidy DO PCP - General Internal Medicine 05/06/13 09/30/[address] [place] [address] Harriet Haley MD PCP - General Physician Superintendent Commissary 10/01/15 [facility] [address] [place] [address] documented as of this encounter
--- OUTSIDE RECORDS SUMMARY | 2022-06-21 19:23 | XMS_ITS | Encounter Summary ---
:1965 Author Organization [facility] Address [address] [place] [address] Care Team Providers Name Role Phone Amor Montgomery MD Primary Care Provider Reason for Visit Reason Comments migraine headache Encounter Details Date Type Department Care Team Description 07/13/2003 Abstract [facility] Ur[facility] Nick Trejo, DO [place] [address] [address] [place] [phone] Social History Tobacco Use Types Packs/Day Years Used Date Smoking Tobacco: Every Day Comments: LESS THAN 1 PPD Alcohol Use Standard Drinks/Week Comments Yes 0 (1 standard drink = 0.6 oz pure alcoho l) SMALL Sex Assigned at Date Recorded Not on file documented as of this encounter Progress Notes 07/13/2003 11:59 PM SAUSAGE LINKER This information has been abstracted from the [facility] urgent care chart. demerol 50 mg IM phenog an 25 mg IM Electronically filed by Lizzie De La Paz 08/28/2003 2:47 PM documented in this encounter Plan of Treatment Not on filedocumented as of this encounter Visit Diagnoses Not on filedocumented in this encounter Care Teams Landscape Artist Relationship Specialty Start Date End Date Amor Montgomery MD PCP - General 09/24/01 05/05/13 [facility] [address] [place] [address] documented as of this encounter
--- OUTSIDE RECORDS SUMMARY | 2022-06-21 19:23 | XMS_ITS | Encounter Summary ---
:1965 Author Organization [facility] Address [address] [place] [address] Care Team Providers Name Role Phone Amor Montgomery MD Primary Care Provider Reason for Visit Reason Comments Imm/Inj Encounter Details Date Type Department Care Team Description 04/15/2002 Telephone [facility] Merle Berum[place], Imm/Inj Carlton MD [address] [place] [address] [place] [address] [phone] Social History Tobacco Use Types Packs/Day Years Used Date Smoking Tobacco: Never Assessed Sex Assigned at Date Recorded Not on file documented as of this encounter Miscellaneous Notes Telephone Encounter - 04/15/2002 11:59 PM CDT >> FRANK ADRIAN Fri Apr 15, 2002 4:35 PM orders done-will schedule nurse only-but will have someone from school read it Frank Adrian RN >> GUILHERME BERUMEN ThuApr 15, 2002 10:54 AM ok for nurse only mantoux. >> XAVI WOODARD ThuApr 15, 2002 10:21 AM >> CALL RECEIVED. Contact: [phone] Pt needs mantoux for school. Sched nurse only need orders documented in this encounter Plan of Treatment Not on filedocumented as of this encounter Visit Diagnoses Diagnosis Screening examination for pulmonary tube rculosis - Primary documented in this encounter Care Teams Welding Operator Relationship Specialty Start Date End Date Amor Montgomery MD PCP - General 09/24/01 05/05/13 [place] [address] [place] [address] documented as of this encounter
--- OUTSIDE RECORDS SUMMARY | 2022-06-21 19:23 | XMS_ITS | Encounter Summary ---
:1965 Author Organization [place] Address [address] [place] [address] Care Team Providers Name Role Phone Amor Montgomery MD Primary Care Provider Encounter Details Date Type Department Care Team Description 03/08/2004 Orders Only [facility] Amor Montgomery [facility] HYROIDISM NOS Clinic Luly Hugo MD (Primary Dx) [address] [place], [place] [address] [address] [place] [address] [phone] Social History Tobacco Use Types Packs/Day Years Used Date Smoking Tobacco: Every Day Comments: LESS THAN 1 PPD Alcohol Use Standard Drinks/Week Comments Yes 0 (1 standard drink = 0.6 oz pure alcoho l) SMALL Sex Assigned at Date Recorded Not on file documented as of this encounter Progress Notes 03/08/2004 11:59 PM CDT THS ordered per recomendation on previous TSH level from 08/24/03. documented in this encounter Plan of Treatment Not on filedocumented as of this encounter Visit Diagnoses Diagnosis Unspecified hypothyroidism - Primary documented in this encounter Care Teams Boilermaker Helper Relationship Specialty Start Date End Date Amor Montgomery MD PCP - General 09/24/01 05/05/13 [facility] [address] [place] [address] documented as of this encounter
--- OUTSIDE RECORDS SUMMARY | 2022-06-21 19:23 | XMS_ITS | Encounter Summary ---
:1965 Author Organization [facility] Address [address] [place] [address] Care Team Providers Name Role Phone Amor Montgomery MD Primary Care Provider Reason for Visit Reason Onset Date Comments Refill Request 08/05/2004 Encounter Details Date Type Department Care Team Description 08/05/2004 Refill [facility] Amor Tubbs MD Refill Request [facility] [address] [facility] [address] [place] [address] [place], [place] [address] [phone] (Wo rk) Social History Tobacco Use Types Packs/Day Years Used Date Smoking Tobacco: Every Day Comments: LESS THAN 1 PPD Alcohol Use Standard Drinks/Week Comments Yes 0 (1 standard drink = 0.6 oz pure alcoho l) SMALL Sex Assigned at Date Recorded Not on file documented as of this encounter Miscellaneous Notes Telephone Encounter - 08/05/2004 2:25 PM GRAIN PACKER >> ISABELLA MESA ThuAug 05, 2004 2:26 PM Synthroid reordered with fax to pharmacy, as previously was printed out. documented in this encounter Plan of Treatment Not on filedocumented as of this encounter Visit Diagnoses Not on filedocumented in this encounter Care Teams Vessel Builder Relationship Specialty Start Date End Date Amor Montgomery MD PCP - General 09/24/01 05/05/13 [facility] [address] [place] [address] documented as of this encounter
--- OUTSIDE RECORDS SUMMARY | 2022-06-21 19:23 | XMS_ITS | Encounter Summary ---
:1965 Author Organization [place] Address [address] [place] [address] Care Team Providers Name Role Phone Amor Montgomery MD Primary Care Provider Reason for Visit Reason Onset Date Comments Refill Request 05/28/2004 Encounter Details Date Type Department Care Team Description 05/28/2004 Refill [facility] Amor Tubbs MD Refill Request [facility] [address] [facility] [address] [place] [address] [place] [address] [phone] (Wo rk) Social History Tobacco Use Types Packs/Day Years Used Date Smoking Tobacco: Every Day Comments: LESS THAN 1 PPD Alcohol Use Standard Drinks/Week Comments Yes 0 (1 standard drink = 0.6 oz pure alcoho l) SMALL Sex Assigned at Date Recorded Not on file documented as of this encounter Miscellaneous Notes Telephone Encounter - 05/28/2004 4:23 PM CDT >> FORREST Bland May 28, 2004 4:24 PM pharmacy requesting refill, last fill 10/25/03 documented in this encounter Plan of Treatment Not on filedocumented as of this encounter Visit Diagnoses Not on filedocumented in this encounter Care Teams Electrical Logging Engineer Relationship Specialty Start Date End Date Amor Montgomery MD PCP - General 09/24/01 05/05/13 [facility] [address] [place] [address] documented as of this encounter
--- NOTE | 2022-06-21 19:25 | ED.GENADULT ---
HPI - General Adult General Chief complaint: Dizziness/Vertigo Stated complaint: Nausea,Back Pain,Dizziness Time Seen by Provider: 06/21/22 19:10 Source: patient Mode of arrival: ambulatory Limitations: no limitations History of Present Illness HPI narrative: Patient is a 56-year-old female coming in today complaining of not feeling well. She complains of a headache, facial pressure, coughing, weakness, dizziness, right-sided flank pain and increased urinary frequency. She states that she has been drinking more water since she has been ill. She states she has felt like this for approximately 1 week. His head getting better over the last several days she feels like she is getting worse. She denies any fevers but states that she feels very nauseated. Denies any vomiting. He states that she does have diarrhea on and off. Again increased urinary frequency but no urgency or dysuria. No blood in her stool or urine. She has mild headache across the frontal part of the head. She has a difficult time breathing through her nose secondary to congestion. She states that her daughter has similar symptoms. She is very concerned that something is wrong. She feels generalized weakness and achiness. Related Data Home Medications Medication Instructions Recorded Confirmed aripiprazole 2 mg tablet 2 mg PO DAILY 02/20/22 02/20/22 buspirone 15 mg tablet 7.5 mg PO BID 02/20/22 02/20/22 desvenlafaxine 100 mg 100 mg PO DAILY 02/20/22 02/20/22 tablet,extended release 24 hr gabapentin 300 mg capsule 300 mg PO TID 02/20/22 02/20/22 hydrochlorothiazide 25 mg tablet 25 mg PO DAILY 02/20/22 02/20/22 rosuvastatin 20 mg tablet 20 mg PO .Bedtime 02/20/22 02/20/22 verapamil 120 mg 24 hr 120 mg PO QDAY 02/20/22 02/20/22 capsule,extended release verapamil 240 mg tablet,extended 240 mg PO DAILY 02/20/22 02/20/22 release Previous Rx's Medication Instructions Recorded levothyroxine 112 mcg tablet 112 mcg PO DAILY #90 tabs 05/11/22 ciprofloxacin HCl 500 mg tablet 500 mg PO BID #10 tabs 06/21/22 ondansetron HCl 4 mg tablet 4 mg PO BID-TID PRN nausea and 06/21/22 vomiting #10 tabs Allergies Allergy/AdvReac Type Severity Reaction Status Date / Time cefuroxime Allergy Unknown Verified 02/19/22 08:06 nitrofurantoin Allergy Unknown Verified 02/19/22 08:06 pregabalin Allergy Unknown Verified 02/19/22 08:06 sulfamethoxazole Allergy Unknown Verified 02/19/22 08:06 [From Sulfamethoxazole-Trimethoprim] trimethoprim Allergy Unknown Verified 02/19/22 08:06 [From Sulfamethoxazole-Trimethoprim] AMOXICILLIN-POT CLAVULANATE Allergy Mild Rash Uncoded 02/19/22 08:06 Pneumococcal conjugate Allergy Unknown Uncoded 02/19/22 08:06 vaccine Review of Systems Status of ROS: Reports: 10 or more systems reviewed and unremarkable except as noted in History and below [facility] Social History Smoking Status: Never smoker How often do you have a drink containing alcohol: never AUDIT-C Alcohol total score: 0 Non-prescribed substance use: denies use Exam Narrative: Exam Narrative: Well-nourished well-developed patient in no acute distress. Alert and oriented. Answers questions appropriately. Mood and affect are appropriate. Thoughts are goal oriented and rational. No tangential or magical thinking noted. Patient speaks in full sentences without needing to catch their breath. HEENT: Normocephalic atraumatic. Pupils are equally round reactive to light. Extraocular muscles are intact. Conjunctivae are moist without any icterus noted. Moist mucous membranes. Posterior pharynx is normal. Neck is soft without any lymphadenopathy or thyromegaly. No masses are appreciated. Cardiovascular: Heart is regular rate and rhythm S1 and S2 are present without any murmurs. Lungs: Clear to auscultation bilaterally no wheezes rhonchi or rales are appreciated. Patient takes deep breaths without any discomfort. Abdomen: Soft and nontender nondistended with normal bowel sounds. No guarding or rebound. No masses or organomegaly appreciated. Extremities: Bilateral lower extremities are without edema. Normal DP and PT pulses. Skin: Well perfused without any obvious rashes. Const: Vital Signs, click to edit/add: Vital Signs - 24 hr 06/21/22 18:19 Temperature 97.8 F Pulse Rate [Left P ulse Oximeter] 85 Respiratory Rate 16 Blood Pressure [Ri ght Upper Arm] 135/81 Pulse Oximetry 98 Oxygen Delivery Me thod Room Air Course Course Hospital Course: IV was established and patient received a 0.5 L of normal saline and Zofran. Lab work was unremarkable. Urinalysis was slightly borderline for potential of infection, however given her symptoms of increased urinary frequency and flank discomfort we did decide to go ahead and treat her at this time. Vital Signs Vital signs: Initial Vital Signs Temperature 97.8 F 06/21/22 18:19 Temperature Source Temporal Artery Scan 06/21/22 18:19 Pulse Rate 85 06/21/22 18:19 Pulse Rhythm 06/21/22 18:19 Pulse Strength 3+ Normal 06/21/22 18:19 Respiratory Rate 16 06/21/22 18:19 Blood Pressure 135/81 06/21/22 18:19 Blood Pressure Mean 99 06/21/22 18:19 Blood Pressure Position Sitting 06/21/22 18:19 Pulse Oximetry 98 06/21/22 18:19 Oxygen Delivery Method 06/21/22 18:19 Vital Signs Temperature 97.8 F 06/21/22 18:19 Pulse Rate 85 06/21/22 18:19 Respiratory Rate 16 06/21/22 18:19 Blood Pressure 135/81 06/21/22 18:19 Pulse Oximetry 98 06/21/22 18:19 Oxygen Delivery Method 06/21/22 18:19 Temperature 97.8 F 06/21/22 18:19 Pulse Rate 85 06/21/22 18:19 Respiratory Rate 16 06/21/22 18:19 Blood Pressure 135/81 06/21/22 18:19 Pulse Oximetry 98 06/21/22 18:19 Oxygen Delivery Method 06/21/22 18:19 Medical Decision Making [facility] Narrative Medical decision making narrative: 56-year-old female generalized not feeling well, potential UTI. Will treat with Cipro for 5 days as patient is allergic to Augmentin, Bactrim, Macrobid, cephalosporins. Discussed reasons for follow-up. Patient was agreeable had no other questions. Lab Data Lab results reviewed: Yes I reviewed the patient's lab results Labs: Lab Results 06/21/22 06/21/22 06/21/22 Range/Units 19:31 19:31 19:31 WBC 8.28 (4.50-11.00) K/uL RBC 4.58 (4.00-5.20) m/uL Hgb 14.0 (12.0-16.0) gm/dL Hct 41.1 (33.0-51.0) % MCV 90 (80-100) fL MCH 31 (26-34) pg MCHC 34 (32-36) gm/dL RDW Coeff of Deion 12.7 (11.5-15.5) % Plt Count 315 (140-440) K/uL Neut % (Auto) 44.7 (42.0-72.0) % Lymph % (Auto) 42.5 (20-44) % Cole % (Auto) 8.1 (0.0-11.0) % Eos % (Auto) 4.1 (0.0-7.0) % Baso % (Auto) 0.5 (0.0-3.0) % Neut # (Auto) 3.70 (1.7-7.0) K/uL Lymph # (Auto) 3.52 H (0.90-2.90) K/uL Cole # (Auto) 0.70 (0.00-0.90) K/UL Eos # (Auto) 0.34 (0.00-0.50) K/uL Baso # (Auto) 0.04 (0.00-0.30) K/uL Abs Immat Gran (auto) 0.01 (0.00-0.30) K/uL Imm/Tot Granulo (auto) 0.1 % Sodium 141 (135-149) mmol/L Potassium 4.1 (3.6-5.1) mmol/L Chloride 106 (96-114) mmol/L Carbon Dioxide 27 (20-32) mmol/L BUN 14 (7-30) mg/dL Creatinine 0.8 (0.5-1.5) mg/dL Estimated Creat Clear 79.21 Estimated GFR 86 ml/min Glucose 98 (60-115) mg/dL Lactate 1.1 (0.5-1.9) mmol/L Calcium 9.4 (8.4-10.6) mg/dL C-Reactive Protein < 0.5 L (0.5-1.0) mg/dL Urine Color (Yellow) Urine Appearance (Clear) Urine pH (5.0-8.5) Ur Specific [place] (1.000-1.030) Urine Protein (Negative) Urine Glucose (UA) (Negative) Urine Ketones (Negative) Urine Blood (Negative) Urine Nitrite (Negative) Urine Bilirubin (Negative) Urine Urobilinogen (0.2-1.0) Ur Leukocyte Esterase (Negative) Urine RBC (0-2) Urine WBC (0-5) Ur Squamous Epith Cells (None-Few) Urine Bacteria (None) SARS-CoV-2 (PCR) (Negative) Influenza Type A (PCR) (Negative) Influenza Type B (PCR) (Negative) 06/21/22 06/21/22 Range/Units 19:31 20:21 WBC (4.50-11.00) K/uL RBC (4.00-5.20) m/uL Hgb (12.0-16.0) gm/dL Hct (33.0-51.0) % MCV (80-100) fL MCH (26-34) pg MCHC (32-36) gm/dL RDW Coeff of Deion (11.5-15.5) % Plt Count (140-440) K/uL Neut % (Auto) (42.0-72.0) % Lymph % (Auto) (20-44) % Cole % (Auto) (0.0-11.0) % Eos % (Auto) (0.0-7.0) % Baso % (Auto) (0.0-3.0) % Neut # (Auto) (1.7-7.0) K/uL Lymph # (Auto) (0.90-2.90) K/uL Cole # (Auto) (0.00-0.90) K/UL Eos # (Auto) (0.00-0.50) K/uL Baso # (Auto) (0.00-0.30) K/uL Abs Immat Gran (auto) (0.00-0.30) K/uL Imm/Tot Granulo (auto) % Sodium (135-149) mmol/L Potassium (3.6-5.1) mmol/L Chloride (96-114) mmol/L Carbon Dioxide (20-32) mmol/L BUN (7-30) mg/dL Creatinine (0.5-1.5) mg/dL Estimated Creat Clear Estimated GFR ml/min Glucose (60-115) mg/dL Lactate (0.5-1.9) mmol/L Calcium (8.4-10.6) mg/dL C-Reactive Protein (0.5-1.0) mg/dL Urine Color Yellow (Yellow) Urine Appearance Clear (Clear) Urine pH 7.0 (5.0-8.5) Ur Specific [place] 1.010 (1.000-1.030) Urine Protein Negative (Negative) Urine Glucose (UA) Negative (Negative) Urine Ketones Negative (Negative) Urine Blood Negative (Negative) Urine Nitrite Negative (Negative) Urine Bilirubin Negative (Negative) Urine Urobilinogen 0.2 (0.2-1.0) Ur Leukocyte Esterase Trace A (Negative) Urine RBC 2-5 A (0-2) Urine WBC 2-5 (0-5) Ur Squamous Epith Cells Few (None-Few) Urine Bacteria Few A (None) SARS-CoV-2 (PCR) Negative SARS-CoV-2 (Negative) Influenza Type A (PCR) Negative PCR FLU A (Negative) Influenza Type B (PCR) Negative PCR FLU B (Negative) Imaging Data Chest x-ray: Attestation: I have reviewed the pertinent imaging results. My impression: No acute findings Radiologist's impression: Portable frontal view the chest. COMPARISON: None. FINDINGS: No airspace consolidation. No pleural effusion or pneumothorax. Pulmonary vasculature and cardiomediastinal silhouette are unremarkable. IMPRESSION: No cardiopulmonary abnormality. Discharge Plan Discharge Clinical Impression: UTI (urinary tract infection), URI (upper respiratory infection) Patient Disposition: Home, Self-Care Condition: Stable Additional Instructions: Make sure to stay well hydrated. Take all antibiotics as prescribed. Rest as much as you need to. Follow-up as needed. Prescriptions: New ciprofloxacin HCl 500 mg tablet 500 mg PO BID Qty: 10 0RF ondansetron HCl 4 mg tablet 4 mg PO BID-TID PRN (Reason: nausea and vomiting) Qty: 10 0RF No Action desvenlafaxine 100 mg tablet extended release 24 hr 100 mg PO DAILY aripiprazole 2 mg tablet 2 mg PO DAILY buspirone 15 mg tablet 7.5 mg PO BID hydrochlorothiazide 25 mg tablet 25 mg PO DAILY verapamil 240 mg tablet extended release 240 mg PO DAILY gabapentin 300 mg capsule 300 mg PO TID verapamil 120 mg capsule,ext rel. pellets 24 hr 120 mg PO QDAY rosuvastatin 20 mg tablet 20 mg PO .Bedtime levothyroxine 112 mcg tablet 112 mcg PO DAILY Qty: 90 3RF Follow Up/Referrals: Lul Akers MD [Primary Care Provider] - Stand Alone Forms: [employer] Instructions
[2022-06-21 19:37] LABS: Basophils Absolute Auto 0.04 K/uL (0.00-0.30); Basophils Percent Auto 0.5 % (0.0-3.0); Eosinophils Absolute Auto 0.34 K/uL (0.00-0.50); Eosinophils Percent Auto 4.1 % (0.0-7.0); Hematocrit 41.1 % (33.0-51.0); Immature Granulocytes Abs Auto 0.01 K/uL (0.00-0.30); Immature Granulocytes Pct Auto 0.1 %; Lymphocytes Absolute Auto 3.52 K/uL (0.90-2.90); Lymphocytes Percent Auto 42.5 % (20-44); Mean Corpuscular HGB Conc 34 gm/dL (32-36); Mean Corpuscular Hemoglobin 31 pg (26-34); Mean Corpuscular Volume 90 fL (80-100); Monocytes Percent Auto 8.1 % (0.0-11.0); Neutrophils Percent Auto 44.7 % (42.0-72.0); Platelet Count* 315 K/uL (140-440); RDW Coefficient of Variation % 12.7 % (11.5-15.5); Red Blood Count 4.58 m/uL (4.00-5.20); White Blood Count* 8.28 K/uL (4.50-11.00)
[2022-06-21] MEDS: 0.9 % SODIUM CHLORIDE 500 ML 500 ML IV (19:38)
[2022-06-21 19:42] LABS: Slide Review Reflex No
[2022-06-21 19:46] LABS: Lactate* 1.1 mmol/L (0.5-1.9)
[2022-06-21] MEDS: ONDANSETRON 2 MG/ML inj 4 MG IVP (19:49)
[2022-06-21 20:01] LABS: Chloride* 106 mmol/L (96-114); Sodium* 141 mmol/L (135-149)
[2022-06-21 20:02] LABS: Potassium* 4.1 mmol/L (3.6-5.1)
[2022-06-21 20:04] LABS: Carbon Dioxide* 27 mmol/L (20-32); Creatinine* 0.8 mg/dL (0.5-1.5); Est. Creatinine Clearance* 79.21; Estimated Glomerular Filt Rate 86 ml/min
[2022-06-21 20:05] LABS: Blood Urea Nitrogen* 14 mg/dL (7-30); Calcium* 9.4 mg/dL (8.4-10.6); Glucose* 98 mg/dL (60-115)
[2022-06-21 20:22] LABS: PCR FLU A Negative PCR FLU A (Negative); PCR FLU B Negative PCR FLU B (Negative)
[2022-06-21 20:25] LABS: C Reactive Protein* < 0.5 mg/dL (0.5-1.0)
[2022-06-21 20:28] LABS: Appearance Urine Clear (Clear); Bilirubin Urine Negative (Negative); Blood Urine Negative (Negative); Color Urine Yellow (Yellow); Glucose Urine Negative (Negative); Ketones Urine Negative (Negative); Leukocyte Esterase Urine Trace (Negative); Nitrite Urine Negative (Negative); Protein Urine Negative (Negative); Urobilinogen Urine 0.2 (0.2-1.0)
[2022-06-21 20:28] LABS: SARS PCR* Negative SARS-CoV-2 (Negative)
[2022-06-21 20:47] LABS: Bacteria Urine Few; Squamous Epithelial Cell Urine Few (None-Few)
== END 2022-06-21 21:20 | disposition home or self-care (01) ==
PROVIDERS: Emergency Provider Family Medicine; PCP Family Medicine
DX: N39.0 Urinary tract infection, site not specified (principal); J06.9 Acute upper respiratory infection, unspecified
CPT/HCPCS: 36415; 71045; 80048; 81001; 83605; 85025; 86140; 87086; 87631; 96361; 96374; 99284; J2405; J7120

== ENCOUNTER 2022-06-22 22:59 | Outpatient (CLI) | payer OTHER, SELFPAY ==
--- OUTSIDE RECORDS SUMMARY | 2022-07-15 06:41 | XMS_ITS | Clinical Summary ---
:1965 Author Organization [facility] Address [address] [place] [address] Care Team Providers Name Role Phone Harriet Haley MD Primary Care Provider [phone] Allergies Active Allergy Reactions Severity Noted [...] prescribed intentionally due to {CHOOSE REASON BEFORE SIGNING!!!:957686} order for DMEIndications: Equipment being 1 Units [...] (CIPRO) 250 MG Take 1 tablet (250 mg) 6 tablet 0 11/13/2017 Active tabletIndications: Urinary by mouth 2 times daily tract infection without hematuria, site unspecified meclizine (ANTIVERT) 25 MG Take 1 tablet (25 mg) 30 tablet 0 1 08/28/2021 Active tablet by mouth 3 times daily as needed for dizziness diazepam (VALIUM) 2 MG tablet Take 1 tablet (2 mg) 2 tablet 0 06/28/2022 Active by mouth every 12 hours as needed (vertigo) Active Problems Patient Care Coordination Note Formatting of this note might be differe nt from the original. [email or web address] Problem Noted Date Chronic bilateral low back pain with left-sided sciati ca 03/26/2016 Low back pain potentially associated with radiculopath y 10/01/2015 Acute low back pain 10/01/2015 Encounters Date Type Specialty Care Team Description 06/28/2022 Emergency EMERGENCY MEDICINE Pastor Marino Vertigo; Double vision Pastor Og MD 06/28/2022 Travel from Last 3 Months Immunizations Name Administration Dates Next Due Mantoux [...] Assigned at Date Recorded Not on file COVID-19 Exposure Response Date Recorded In the last 10 days, have you been in contact with No / Unsu re 06/28/2022 2:12 PM SQL ENGINEER someone who was confirmed or suspected to have Coronavirus/COVID-19? Last Filed Vital Signs Vital Sign Reading Time Taken Comments Blood Pressure 133/88 06/28/2022 9:07 PM SQL ENGINEER Pulse 91 06/28/2022 9:07 PM SQL ENGINEER Temperature 36.7 ??C (98 ??F) 06/28/2022 9:07 PM SQL ENGINEER Respiratory Rate 16 06/28/2022 9:07 PM SQL ENGINEER Oxygen Saturation 95% 06/28/2022 9:07 PM SQL ENGINEER Inhaled Oxygen Concentration - - Weight 99.8 kg (220 lb) 09/23/2017 6:47 PM SQL ENGINEER Height 172.7 cm (5' 8) 09/28/2016 2:53 PM SQL ENGINEER Body Mass Index 33.45 09/28/2016 2:53 PM SQL ENGINEER Plan of Treatment Health Maintenance Due Date Last Done Comments ADVANCE CARE PLANNING 1965 ANNUAL REVIEW OF HM ORDERS 1965 CT COLONOGRAPHY 1965 FIT-DNA (Cologuard) 1965 FIT 1965 FLEX SIG 1965 HEPATITIS B IMMUNIZATION (1 1965 of 3 - 3-dose series) MAMMO SCREENING 1965 YEARLY PREVENTIVE VISIT 1965 COLONOSCOPY 10/26/1975 COLORECTAL CANCER SCREENING 10/26/1975 HIV SCREENING 1980 HEPATITIS C SCREENING 10/26/1983 PAP 1986 LIPID 2010 LUNG CANCER SCREENING 10/26/2015 ZOSTER IMMUNIZATION (1 of 10/26/2015 2) COVID-19 Vaccine (4 - 07/09/2021 05/14/2021, 08/29/2020, Booster for Pfizer series) 08/08/2020 PHQ-2 (once per calendar 08/10/2021 10/10/2015 year) URINE DRUG SCREEN 06/28/2023 06/28/2022 DTAP/TDAP/TD IMMUNIZATION 10/09/2024 10/09/2014, 09/13/2004 (2 - Td or Tdap) Pneumococcal Vaccine: Aged Out 07/20/2013, 07/20/2013, No longer eligible Pediatrics (0 to 5 Years) 01/01/2011 based on patient's age and At-Risk Patients (6 to to co mplete this topic 64 Years) INFLUENZA VACCINE Completed 04/30/2022, 04/29/2021, 05/07/2020, Additional history exists IPV IMMUNIZATION Aged Out No longer eligi ble based on patient 's age to complete this topic MENINGITIS IMMUNIZATION Aged Out No longe r eligible based on patient 's age to complete this topic Medical Devices Implanted Type Area Operations Research Analyst Device Shelf Model / Identifier Expiration Serial / Lot Date Sling Sparc Urinary System [id number] Stent N/A: ASTORA 06/15/2018 [id number] / Implanted: Qty: 1 on 11/05/2015 Bladder / [id number] Kit Sling Lynx - [id number] Stent N/A: [place] 0 11/25/2018 [id number] / Implanted: Qty: 1 on 02/20/2016 Bladder [employer] / [id number] C4-C5 Fusion Explanted Type Area Operations Research Analyst Device Identifier Shelf Exp iration Model / Date Serial / L ot Sparc Sling Explanted: 11/05/2015 (Quantity not on file) Procedures Procedure Name Priority Date/Time Associated Comments Diagnosis MRA NECK (CAROTIDS) STAT 06/28/2022 5:49 PM Re sults for this W/O CONTRAST SQL ENGINEER procedure are i n the results section. MR BRAIN W/O CONTRAST STAT 06/28/2022 5:41 PM Results for this SQL ENGINEER procedure are i n the results section. MRA BRAIN ([place] STAT 06/28/2022 5:41 PM R esults for this [place]) W/O CONTRAST SQL ENGINEER procedu re are in the results section. URINE DRUGS OF ABUSE STAT 06/28/2022 3:56 PM R esults for this SCREEN SQL ENGINEER procedure are i n the results section. DRUG ABUSE SCREEN 1 STAT 06/28/2022 3:56 PM Re sults for this URINE (ED) SQL ENGINEER procedure are i n the results section. ROUTINE UA WITH STAT 06/28/2022 3:56 PM Result s for this MICROSCOPIC REFLEX TO SQL ENGINEER proced ure are in CULTURE the results section. CBC WITH PLATELETS & STAT 06/28/2022 2:40 PM R esults for this DIFFERENTIAL SQL ENGINEER procedure are i n the results section. CBC WITH PLATELETS STAT 06/28/2022 2:40 PM Res ults for this AND DIFFERENTIAL SQL ENGINEER procedure a re in the results section. TROPONIN T, HIGH STAT 06/28/2022 2:40 PM Resul ts for this SENSITIVITY SQL ENGINEER procedure are i n the results section. BASIC METABOLIC PANEL STAT 06/28/2022 2:40 PM Results for this SQL ENGINEER procedure are i n the results section. EKG 12-LEAD, TRACING STAT 06/28/2022 2:39 PM R esults for this ONLY SQL ENGINEER procedure are i n the results section. from Last 3 Months Results MRA Neck (Carotids) wo Contrast (06/28/2022 5:49 PM SQL ENGINEER) Anatomical Region Laterality Modality Neck, Vascular, C-spine, SUBRAD MR NEURO, UMP MR NEURO, Magnetic Resonance RAD MR Specimen (Source) Anatomical Collection Method Collection Time Re ceived Time Location / / Volume Laterality 06/28/2022 5:49 PM SQL ENGINEER Impressions 06/28/2022 5:56 PM SQL ENGINEER IMPRESSION: 1. ??Normal neck MRA. Narrative 06/28/2022 5:56 PM SQL ENGINEER EXAM: MRA NECK (CAROTIDS) W/O CONTRAST LOCATION: [facility] DATE/TIME: 06/28/2022 5:49 PM INDICATION: double vision and dizziness COMPARISON: CTA head neck 10/09/2019 TECHNIQUE: Neck MRA without IV contrast. Stenosis measurements made according to NASCET criteria unless otherwise specified. FINDINGS: RIGHT CAROTID: No measurable stenosis or dissection. LEFT CAROTID: No measurable stenosis or dissection. VERTEBRAL ARTERIES: No focal stenosis or dissection. Dominant left and smaller right vertebral arteries. AORTIC ARCH: Vascular variant aortic arc h origin left vertebral artery. ??No significant stenosis at the origin of the great vessels. Procedure Note Waldo Peña MD - 06/28/2022Formattin g of this note might be different from the original. EXAM: MRA NECK (CAROTIDS) W/O CONTRAST LOCATION: [facility] DATE/TIME: 06/28/2022 5:49 PM INDICATION: double vision and dizziness COMPARISON: CTA head neck 10/09/2019 TECHNIQUE: Neck MRA without IV contrast. Stenosis measurements made according to NASCET criteria unless otherwise specified. FINDINGS: RIGHT CAROTID: No measurable stenosis or dissection. LEFT CAROTID: No measurable stenosis or dissection. VERTEBRAL ARTERIES: No focal stenosis or dissection. Dominant left and smaller right vertebral arteries. AORTIC ARCH: Vascular variant aortic arc h origin left vertebral artery. No significant stenosis at the origin of the great vessels. IMPRESSION: 1. Normal neck MRA. Pastor Marino MD IMG MRI ORDERABLES MR Brain w/o Contrast (06/28/2022 5:41 PM SQL ENGINEER) Anatomical Region Laterality Modality Head, SUBRAD MR NEURO, UMP MR NEURO, RAD MR Magnetic Resonance Specimen (Source) Anatomical Collection Method Collection Time Re ceived Time Location / / Volume Laterality 06/28/2022 5:41 PM SQL ENGINEER Impressions 06/28/2022 5:52 PM SQL ENGINEER IMPRESSION: HEAD MRI: 1. ??No acute intracranial process. 2. ??Generalized brain atrophy and presu med microvascular ischemic changes as detailed above. HEAD MRA: 1. ??Normal MRA [place]. Narrative 06/28/2022 5:52 PM SQL ENGINEER EXAM: MR BRAIN W/O CONTRAST, MRA BRAIN ([place]) W/O CONTRAST LOCATION: [facility] DATE/TIME: 06/28/2022 5:41 PM INDICATION: double vision and dizziness COMPARISON: MRI head 06/25/2022 and CTA head neck 10/09/2019 TECHNIQUE: 1) Routine multiplanar multisequence hea d MRI without intravenous contrast. 2) 3D [id number]-[id number] head MRA without in travenous contrast. FINDINGS: HEAD MRI: INTRACRANIAL CONTENTS: No acute or subac [place] infarct. No mass, acute hemorrhage, or extra-axial fluid collections. Scattered nonspecific T2/FLAIR hyperintensities within the cerebral white matter most co nsistent with mild chronic microvascular ischemic change. Mild generalized cerebral atroph y. No hydrocephalus. Normal position of the cerebellar tonsils. SELLA: No abnormality accounting for robert hnique. OSSEOUS STRUCTURES/SOFT TISSUES: Normal marrow signal. The major intracranial vascular flow voids are maintained. ORBITS: No abnormality accounting for te chnique. SINUSES/MASTOIDS: No paranasal sinus muc osal disease. No middle ear or mastoid effusion. HEAD MRA: ANTERIOR CIRCULATION: No stenosis/occlus ion, aneurysm, or high flow vascular malformation. origin of the left posterior cerebral artery from the anterior circulation. POSTERIOR CIRCULATION: No stenosis/occlu melody, aneurysm, or high flow vascular malformation. Balanced vertebral arteries supply a normal basilar artery. Procedure Note Waldo Peña MD - 06/28/2022Formattin g of this note might be different from the original. EXAM: MR BRAIN W/O CONTRAST, MRA BRAIN ( [place]) W/O CONTRAST LOCATION: [facility] DATE/TIME: 06/28/2022 5:41 PM INDICATION: double vision and dizziness COMPARISON: MRI head 06/25/2022 and CTA head neck 10/09/2019 TECHNIQUE: 1) Routine multiplanar multisequence hea d MRI without intravenous contrast. 2) 3D [id number]-tv-[id number] head MRA without in travenous contrast. FINDINGS: HEAD MRI: INTRACRANIAL CONTENTS: No acute or subac [place] infarct. No mass, acute hemorrhage, or extra-axial fluid collections. Scattered nonspecific T2/FLAIR hyperintensities within the cerebral white matter most consistent with mild chronic microvascular ischemic change. Mild generalized cerebral atroph y. No hydrocephalus. Normal position of the cerebellar tonsils. SELLA: No abnormality accounting for robert hnique. OSSEOUS STRUCTURES/SOFT TISSUES: Normal marrow signal. The major intracranial vascular flow voids are maintained. ORBITS: No abnormality accounting for te chnique. SINUSES/MASTOIDS: No paranasal sinus muc osal disease. No middle ear or mastoid effusion. HEAD MRA: ANTERIOR CIRCULATION: No stenosis/occlus ion, aneurysm, or high flow vascular malformation. origin of the left posterior cerebral artery from the anterior circulation. POSTERIOR CIRCULATION: No stenosis/occlu melody, aneurysm, or high flow vascular malformation. Balanced vertebral arteries supply a normal basilar artery. IMPRESSION: HEAD MRI: 1. No acute intracranial process. 2. Generalized brain atrophy and presume d microvascular ischemic changes as detailed above. HEAD MRA: 1. Normal MRA [place]. Pastor Marino MD IMG MRI ORDERABLES MRA Brain ([place]) wo Contrast (06/28/2022 5:41 PM SQL ENGINEER) Anatomical Region Laterality Modality Head, SUBRAD MR NEURO, UMP MR NEURO, RAD MR Magnetic Resonance Specimen (Source) Anatomical Collection Method Collection Time Re ceived Time Location / / Volume Laterality 06/28/2022 5:41 PM SQL ENGINEER Impressions 06/28/2022 5:52 PM SQL ENGINEER IMPRESSION: HEAD MRI: 1. ??No acute intracranial process. 2. ??Generalized brain atrophy and presu med microvascular ischemic changes as detailed above. HEAD MRA: 1. ??Normal MRA [place]. Narrative 06/28/2022 5:52 PM SQL ENGINEER EXAM: MR BRAIN W/O CONTRAST, MRA BRAIN ([place]) W/O CONTRAST LOCATION: [facility] DATE/TIME: 06/28/2022 5:41 PM INDICATION: double vision and dizziness COMPARISON: MRI head 06/25/2022 and CTA head neck 10/09/2019 TECHNIQUE: 1) Routine multiplanar multisequence hea d MRI without intravenous contrast. 2) 3D wqvw-mw-lcqjnk head MRA without in travenous contrast. FINDINGS: HEAD MRI: INTRACRANIAL CONTENTS: No acute or subac [place] infarct. No mass, acute hemorrhage, or extra-axial fluid collections. Scattered nonspecific T2/FLAIR hyperintensities within the cerebral white matter most co nsistent with mild chronic microvascular ischemic change. Mild generalized cerebral atroph y. No hydrocephalus. Normal position of the cerebellar tonsils. SELLA: No abnormality accounting for robert hnique. OSSEOUS STRUCTURES/SOFT TISSUES: Normal marrow signal. The major intracranial vascular flow voids are maintained. ORBITS: No abnormality accounting for te chnique. SINUSES/MASTOIDS: No paranasal sinus muc osal disease. No middle ear or mastoid effusion. HEAD MRA: ANTERIOR CIRCULATION: No stenosis/occlus ion, aneurysm, or high flow vascular malformation. origin of the left posterior cerebral artery from the anterior circulation. POSTERIOR CIRCULATION: No stenosis/occlu melody, aneurysm, or high flow vascular malformation. Balanced vertebral arteries supply a normal basilar artery. Procedure Note Waldo Peña MD - 06/28/2022Formattin g of this note might be different from the original. EXAM: MR BRAIN W/O CONTRAST, MRA BRAIN ( [place]) W/O CONTRAST LOCATION: [facility] DATE/TIME: 06/28/2022 5:41 PM INDICATION: double vision and dizziness COMPARISON: MRI head 06/25/2022 and CTA head neck 10/09/2019 TECHNIQUE: 1) Routine multiplanar multisequence hea d MRI without intravenous contrast. 2) 3D [id number]-rk-bgtkfd head MRA without in travenous contrast. FINDINGS: HEAD MRI: INTRACRANIAL CONTENTS: No acute or subac [place] infarct. No mass, acute hemorrhage, or extra-axial fluid collections. Scattered nonspecific T2/FLAIR hyperintensities within the cerebral white matter most consistent with mild chronic microvascular ischemic change. Mild generalized cerebral atroph y. No hydrocephalus. Normal position of the cerebellar tonsils. SELLA: No abnormality accounting for robert hnique. OSSEOUS STRUCTURES/SOFT TISSUES: Normal marrow signal. The major intracranial vascular flow voids are maintained. ORBITS: No abnormality accounting for te chnique. SINUSES/MASTOIDS: No paranasal sinus muc osal disease. No middle ear or mastoid effusion. HEAD MRA: ANTERIOR CIRCULATION: No stenosis/occlus ion, aneurysm, or high flow vascular malformation. origin of the left posterior cerebral artery from the anterior circulation. POSTERIOR CIRCULATION: No stenosis/occlu melody, aneurysm, or high flow vascular malformation. Balanced vertebral arteries supply a normal basilar artery. IMPRESSION: HEAD MRI: 1. No acute intracranial process. 2. Generalized brain atrophy and presume d microvascular ischemic changes as detailed above. HEAD MRA: 1. Normal MRA [place]. Pastor Marino MD IM MRI ORDERABLES UA with Microscopic reflex to Culture (06/28/2022 3:56 PM SQL ENGINEER) [facility] Method Time Signature Color Urine Straw Colorless, 06/28/2022 LABORATORY Straw, Light 4:17 PM SQL ENGINEER Yellow, Yellow Appearance Urine Clear Clear 06/28/2022 RH LABORATOR Y 4:17 PM SQL ENGINEER Glucose Urine Negative Negative 06/28/2022 LABORATORY mg/dL 4:17 PM SQL ENGINEER Bilirubin Urine Negative Negative 06/28/2022 LABORATORY 4:17 PM SQL ENGINEER Ketones Urine Negative Negative 06/28/2022 LABORATORY mg/dL 4:17 PM SQL ENGINEER Specific [place] 1.007 1.003 - 06/28/2022 RH LABORATOR Y Urine 1.035 4:17 PM SQL ENGINEER Blood Urine Negative Negative 06/28/2022 LABORATORY 4:17 PM SQL ENGINEER pH Urine 5.5 5.0 - 7.0 06/28/2022 LABORATORY 4:17 PM SQL ENGINEER Protein Albumin Negative Negative 06/28/2022 LABORATORY Urine mg/dL 4:17 PM SQL ENGINEER Urobilinogen Normal Normal, 2.0 06/28/2022 LABORATORY Urine mg/dL 4:17 PM SQL ENGINEER Nitrite Urine Negative Negative 06/28/2022 RH LABORATORY 4:17 PM SQL ENGINEER Leukocyte Negative Negative 06/28/2022 LABORATORY Esterase Urine 4:17 PM SQL ENGINEER RBC Urine <1 <=2 /HPF 06/28/2022 RH LABORATORY 4:17 PM SQL ENGINEER WBC Urine 1 <=5 /HPF 06/28/2022 RH LABORATORY 4:17 PM SQL ENGINEER Squamous <1 <=1 /HPF 06/28/2022 LABORATORY Epithelials 4:17 PM SQL ENGINEER Urine Specimen Anatomical Collection Method Collection Time Receive d Time (Source) Location / / Volume Laterality Urine MID-STREAM URINE Non-blood 06/28/2022 3:56 PM 06/28 4:00 SPECIMEN / Unknown Collection / SQL ENGINEER PM SQL ENGINEER Unknown Narrative LABORATORY - 06/28/2022 4:17 PM SQL ENGINEER Urine Culture not indicated Pastor Marino MD LAB - URINE ORDERABLES Performing Organization Address City/State/ZIP [place] [address] Care [facility] [address] Lab (1st floor, no room number) (ABNORMAL) Drug abuse screen 1 urine (ED) (06/28/2022 3:56 PM SQL ENGINEER) [facility] Method Time Signature Amphetamines Screen Screen 06/28/2022 LABORATORY Urine Negative Negative 4:34 PM SQL ENGINEER Comment: Cutoff for a negative amphetami ne is less than 500 ng/mL. Barbituates Urine Screen Negative Screen Negative 06/28/20 22 4:34 RH LABORATORY PM SQL ENGINEER Comment: Cutoff for a negative barbitura te is less than 200 ng/mL. Benzodiazepine Urine Screen Positive Screen Negative 06/28 4:34 LABORATORY (A) PM SQL ENGINEER Comment: Cutoff for a positive benzodiazepine is 100 ng/mL or greater. This is an unconfirmed screening result to be used for medical purposes only. Cannabinoids Urine Screen Negative Screen Negative 022 4:34 RH LABORATORY PM SQL ENGINEER Comment: Cutoff for a negative cannabino id is less than 50 ng/mL. Cocaine Urine Screen Negative Screen Negative 06/28/2022 4:3 4 PM RH LABORATORY SQL ENGINEER Comment: Cutoff for a negative cocaine i s less than 300 ng/mL. Opiates Urine Screen Negative Screen Negative 06/28/2022 4:3 4 PM LABORATORY SQL ENGINEER Comment: Cutoff for a negative opiate is less than 300 ng/mL. Specimen Anatomical Collection Method Collection Time Receive d Time (Source) Location / / Volume Laterality Urine MID-STREAM URINE Non-blood 06/28/2022 3:56 PM 06/28 4:00 SPECIMEN / Unknown Collection / SQL ENGINEER PM SQL ENGINEER Unknown Pastor Marino MD LAB - URINE ORDERABLES Performing Organization Address City/State/ZIP [place] [phone] Care [facility] [address] [facility] Lab (1st floor, no room number) CBC with platelets and differential (06/28/2022 2:40 PM SQL ENGINEER) Analysis Performed At Patho logist Time Signature WBC Count 9.0 4.0 - 11.0 06/28/2022 LABORATORY 10e3/uL 2:55 PM SQL ENGINEER RBC Count 4.44 3.80 - 06/28/2022 RH LABORATORY 5.20 2:55 PM SQL ENGINEER 10e6/uL Hemoglobin 13.6 11.7 - 06/28/2022 RH LABORATORY 15.7 g/dL 2:55 PM SQL ENGINEER Hematocrit 41.4 35.0 - 06/28/2022 RH LABORATORY 47.0 % 2:55 PM SQL ENGINEER MCV 93 78 - 100 06/28/2022 RH LABORATORY fL 2:55 PM SQL ENGINEER MCH 30.6 26.5 - 06/28/2022 RH LABORATORY 33.0 pg 2:55 PM SQL ENGINEER MCHC 32.9 31.5 - 06/28/2022 RH LABORATORY 36.5 g/dL 2:55 PM SQL ENGINEER RDW 12.7 10.0 - 06/28/2022 RH LABORATORY 15.0 % 2:55 PM SQL ENGINEER Platelet Count 297 150 - 450 06/28/2022 RH LABORATORY 10e3/uL 2:55 PM SQL ENGINEER % Neutrophils 54 % 06/28/2022 RH LABORATORY 2:55 PM SQL ENGINEER % Lymphocytes 35 % 06/28/2022 RH LABORATORY 2:55 PM SQL ENGINEER % Monocytes 7 % 06/28/2022 RH LABORATORY 2:55 PM SQL ENGINEER % Eosinophils 3 % 06/28/2022 RH LABORATORY 2:55 PM SQL ENGINEER % Basophils 1 % 06/28/2022 RH LABORATORY 2:55 PM SQL ENGINEER % Immature 0 % 06/28/2022 RH LABORATORY Granulocytes 2:55 PM SQL ENGINEER NRBCs per 100 WBC 0 <1 /100 06/28/2022 RH LABORATO RY 2:55 PM SQL ENGINEER Absolute 4.8 1.6 - 8.3 06/28/2022 RH LABORATORY Neutrophils 10e3/uL 2:55 PM SQL ENGINEER Absolute 3.2 0.8 - 5.3 06/28/2022 RH LABORATORY Lymphocytes 10e3/uL 2:55 PM SQL ENGINEER Absolute 0.6 0.0 - 1.3 06/28/2022 RH LABORATORY Monocytes 10e3/uL 2:55 PM SQL ENGINEER Absolute 0.3 0.0 - 0.7 06/28/2022 RH LABORATORY Eosinophils 10e3/uL 2:55 PM SQL ENGINEER Absolute 0.1 0.0 - 0.2 06/28/2022 RH LABORATORY Basophils 10e3/uL 2:55 PM SQL ENGINEER Absolute Immature 0.0 <=0.4 06/28/2022 RH LABORATO RY Granulocytes 10e3/uL 2:55 PM SQL ENGINEER Absolute NRBCs 0.0 10e3/uL 06/28/2022 RH LABORATORY 2:55 PM SQL ENGINEER Specimen Anatomical Collection Method / Collection Time Recei aide Time (Source) Location / Volume Laterality Blood STRUCTURE OF RIGHT Venipuncture / 06/28/2022 2:40 06/10 2:52 UPPER LIMB / Unknown PM SQL ENGINEER PM SQL ENGINEER Unknown Pastor Marino MD LAB - BLOOD ORDERABLES Performing Organization Address City/State/ZIP [place] [phone] Care [facility] [address] Lab (1st floor, no room number) Troponin T, High Sensitivity (06/28/2022 2:40 PM SQL ENGINEER) athologist Signature Troponin T, High 6 <=14 ng/L 06/28/2022 RH LABORATOR Y Sensitivity 3:19 PM SQL ENGINEER Comment: Either a High Sensitivity Troponin T bas luis (0 hours) value = 100 ng/mL, or an increase in High Sensitivity Troponin T = 7 ng/mL at 2 hours compared to 0 hours (2-0 hours), suggests myocardial injury, and urgent clinical attention is required. ?? If the 2-0 hours increase is<7 ng/mL, a High Sensitivity Troponin T result above gender-specific reference ranges warrants further evaluation. Recommendations for further evaluation i nclude correlation with clinical decision-making tool (e.g., HEART), a 3rd High Sensitivity Troponin T test 2 hours after the 2nd (a 20% change from baseline woul d represent concern), admission for obse rvation, close PCC/cardiology follow-up, or urgent outpatient provocative testing. Specimen Anatomical Collection Method / Collection Time Recei aide Time (Source) Location / Volume Laterality Blood STRUCTURE OF RIGHT Venipuncture / 06/28/2022 2:40 06/10 2:52 UPPER LIMB / Unknown PM SQL ENGINEER PM SQL ENGINEER Unknown Pastor Marino MD LAB - BLOOD ORDERABLES Performing Organization Address City/State/ZIP [place] [address] Care Lab [address] Lab (1st floor, no room number) (ABNORMAL) Basic metabolic panel (06/28/2022 2:40 PM SQL ENGINEER) athologist Signature Sodium 135 (L) 136 - 145 06/28/2022 LABORATORY mmol/L 3:25 PM SQL ENGINEER Potassium 3.9 3.4 - 5.3 06/28/2022 LABORATORY mmol/L 3:25 PM SQL ENGINEER Comment: Specimen slightly hemolyzed, po tassium may be falsely elevated. Chloride 97 (L) 98 - 107 mmol/L 06/28/2022 3:25 PM RH LA BORATORY SQL ENGINEER Carbon Dioxide (CO2) 28 22 - 29 mmol/L 06/28/2022 3:2 5 PM RH LABORATORY SQL ENGINEER Anion Gap 10 7 - 15 mmol/L 06/28/2022 3:25 PM RH LABO RATORY SQL ENGINEER Urea Nitrogen 16.1 6.0 - 20.0 mg/dL 06/28/2022 3:25 PM RH LABORATORY SQL ENGINEER Creatinine 0.96 (H) 0.51 - 0.95 mg/dL 06/28/2022 3:25 PM RH LABORATORY SQL ENGINEER Calcium 9.4 8.6 - 10.0 mg/dL 06/28/2022 3:25 PM RH L ABORATORY SQL ENGINEER Glucose 93 70 - 99 mg/dL 06/28/2022 3:25 PM RH LABO RATORY SQL ENGINEER GFR Estimate 69 >60 mL/min/1.73m2 06/28/2022 3:25 PM RH LABORATORY SQL ENGINEER Comment: Effective July 30, 2021 eGF Rcr in adults is calculated using the 2020 CKD-EPI creatinine equation which includ es age and gender (Heather et al., NEJ, DOI: 10.1056/ZDZWwt0481239) Specimen Anatomical Collection Method / Collection Time Recei aide Time (Source) Location / Volume Laterality Blood STRUCTURE OF RIGHT Venipuncture / 06/28/2022 2:40 06/10 2:52 UPPER LIMB / Unknown PM SQL ENGINEER PM SQL ENGINEER Unknown Pastor Marino MD LAB - BLOOD ORDERABLES Performing Organization Address City/State/ZIP Code [place] [address] Care [facility] [address] Lab (1st floor, no room number) EKG 12-lead, tracing only (06/28/2022 2:39 PM SQL ENGINEER) [facility] gist Method Time Signature Systolic Blood mmHg RADIOLOGY Pressure RESULTS Diastolic Blood mmHg RADIOLOGY Pressure RESULTS Ventricular Rate 72 BPM RADIOLOGY RESULTS Atrial Rate 72 BPM RADIOLOGY RESULTS AL Interval 204 ms RADIOLOGY RESULTS QRS Duration 88 ms RADIOLOGY RESULTS QT 392 ms RADIOLOGY RESULTS QTc 429 ms RADIOLOGY RESULTS P [place] 63 degrees RADIOLOGY RESULTS R AXIS -3 degrees RADIOLOGY RESULTS T [place] 36 degrees RADIOLOGY RESULTS Interpretation Sinus rhythm RADIOLOGY ECG Low voltage QRS RESULTS Borderline ECG When compared with ECG of 26-JUN-2016 21:57, QT has shortened Confirmed by - EMERGENCY YOKASTA Palmer PHYSICIAN ([id number]), sports editor MISAEL CORDON (1964) on 06/30/2022 6:38:32 AM Specimen Anatomical Collection Method Collection Time Receive d Time (Source) Location / / Volume Laterality 06/28/2022 2:39 PM 2 6:38 SQL ENGINEER AM SQL ENGINEER Pastor Marino MD ECG ORDERABLES Performing Organization Address City/State/ZIP Code Phon e Number RADIOLOGY RESULTS from Last 3 Months Insurance Payer Benefit Plan / Subscriber ID Effective Phone Address T ype Group Dates [facility] [id number] 2013-Pres [phone] [address] HMO OPEN ACCESS ent [address] [place] [address] Advance Directives For more information, please contact: [phone] Latest Code Status on File Code Status Date Activated Date Inactivated Comments Full Code 10/03/2015 3:40 PM 06/28/2022 2:10 PM Code Status History Code Status Date Activated Date Inactivated Comments Full Code 10/01/2015 6:21 PM 10/03/2015 3:40 PM Care Teams Truck Driver Heavy Relationship Specialty Start Date End Date Harriet Haley MD PCP - General Physician Buffing Wheel Presser 10/01/15 [facility] [address] [place] [address]
--- OUTSIDE RECORDS SUMMARY | 2022-07-15 06:41 | XMS_ITS | Encounter Summary ---
:1965 Author Organization [facility] Address [address] [place] [address] Care Team Providers Name Role Phone Harriet Haley MD Primary Care Provider [phone] Encounter Details Date Type Department Care Team Description 06/28/2022 Travel Social History Tobacco Use Types Packs/Day Years [...] No / Unsu re 06/28/2022 2:12 PM SOFT SUGAR CUTTER someone who was confirmed or suspected to have Coronavirus/COVID-19? documented as of this encounter Plan of Treatment Not on filedocumented as of this encounter Visit Diagnoses Not on filedocumented in this encounter Care Teams Round Up Ring Hand Relationship Specialty Start Date End Date Harriet Haley MD PCP - General Physician Industrial Mechanic 10/01/15 [facility] [address] [place] [address] documented as of this encounter
--- OUTSIDE RECORDS SUMMARY | 2022-07-15 06:41 | XMS_ITS | Encounter Summary ---
:1965 Author Organization [facility] Address [address] [place] [address] Care Team Providers Name Role Phone Unavailable Primary Care Provider Unavailable Encounter Details Date Type Department Care Team Description 10/10/2005 PN Conversion Only [facility] [address] [place] [address] Social History Tobacco Use Types Packs/Day Years Used Date Smoking Tobacco: Never Assessed Sex Assigned at Date Recorded Not on file documented as of this encounter Plan of Treatment Not on filedocumented as of this encounter Visit Diagnoses Not on filedocumented in this encounter
--- OUTSIDE RECORDS SUMMARY | 2022-07-15 06:41 | XMS_ITS | Encounter Summary ---
:1965 Author Organization [facility] Address [address] [place] [address] Care Team Providers Name Role Phone Unavailable Primary Care Provider Unavailable Encounter Details Date Type Department Care Team Description 05/01/2003 PN Conversion Only ELECTRIC MOTOR REPAIR SUPERVISOR [address] [place] [address] Social History Tobacco Use Types Packs/Day Years Used Date Smoking Tobacco: Never Assessed Sex Assigned at Date Recorded Not on file documented as of this encounter Plan of Treatment Not on filedocumented as of this encounter Visit Diagnoses Not on filedocumented in this encounter
--- OUTSIDE RECORDS SUMMARY | 2022-07-15 06:41 | XMS_ITS | Encounter Summary ---
:1965 Author Organization [facility] Address [address] [place] [address] Care Team Providers Name Role Phone Unavailable Primary Care Provider Unavailable Encounter Details Date Type Department Care Team Description 04/09/2015 ER Follow Up Careline Penny Marino RN [address] [place], [place] [address] [place] [address] [phone] Social History Tobacco Use Types Packs/Day Years [...]
--- OUTSIDE RECORDS SUMMARY | 2022-07-15 06:41 | XMS_ITS | Clinical Summary ---
:1965 Author Organization [facility] Address [address] [place] [address] Care Team Providers Name Role Phone Needs [...] for each transition of care or referral. [email or web address] Allergies Active Allergy Reactions Severity Noted Date [...] Effective Dates Phone Addre ss Type Group [facility] HP SELF INSURED [id number] 2018-Present Commercial Care Teams Pipefitter Helper Relationship Specialty Start Date End Date Needs Pcp, Assignment PCP - General 11/15/21 [place] [address]
--- OUTSIDE RECORDS SUMMARY | 2022-07-15 06:41 | XMS_ITS | Encounter Summary ---
:1965 Author Organization [facility] Address [address] [place] [address] Care Team Providers Name Role Phone Unavailable Primary Care Provider Unavailable Reason for Visit Reason Comments INFECTION, KIDNEY VOMITING Encounter Details Date Type Department Care Team Description 03/18/2020 Nurse Triage Careline Unknown, INFECTION, KIDNEY; [address] Physician VOMITING [place], [place] [address] [phone] [place], [place] [address] Social History Tobacco Use Types Packs/Day Years Used Date Smoking Tobacco: Never Assessed Sex Assigned at Date Recorded Not on file documented as of this encounter Nursing Notes Sarina Burdick RN - 03/18/2020 11:09 AM CDT Reason for Disposition ??? Patient sounds very sick or weak to the triager Protocols used: URINARY TRACT INFECTION ON ANTIBIOTIC FOLLOW-UP CALL - [id number] Pt to go back to Er at [facility] due to cloudy urine and back pain [...]
--- OUTSIDE RECORDS SUMMARY | 2022-07-15 06:41 | XMS_ITS | Encounter Summary ---
:1965 Author Organization [facility] Address [address] [place] [address] Care Team Providers Name Role Phone Unavailable Primary Care Provider Unavailable Encounter Details Date Type Department Care Team Description 06/26/2021 delfina Nickerson [phone] Social History Tobacco Use Types Packs/Day Years [...] antibiotic for your bladder infection (UTI) to [facility] in [place] as you requested. The antibiotic that I [...] try an antibiotic. I sent a prescriptionto [email or web address] . I've also listed a few of [...] 1 day Note: Refills: None Sent To: [email or web address] [address] [place], [place] [id number] Treatment Plan Self Care Tip Topics Warm [...] Bactrim (sulfamethoxazole-trimethoprim), oral Augmentin (amoxicillin-pot clavulanate), oral [email or web address] Information [email or web address] by [employer] We are an online clinic open 02/03. If you have any questions or comments about this visit, please call or email [email or web address] /GYN DOCTOR documented in this encounter Plan of Treatment Not on filedocumented as of this encounter Visit Diagnoses Not on filedocumented in this encounter
--- OUTSIDE RECORDS SUMMARY | 2022-07-15 06:41 | XMS_ITS | Encounter Summary ---
:1965 Author Organization [facility] Address [address] [place] [address] Care Team Providers Name Role Phone Unavailable Primary Care Provider Unavailable Encounter Details Date Type Department Care Team Description 10/28/2001 PN Conversion Only [facility] [place] [address] [address] [place] [address] [phone] Social History Tobacco Use Types Packs/Day Years [...] 0457 Note Time: 10/28/01 0001 Status: Signed Veterinary Nurse: Luis Enrique Mortensen MD (Physician) IMPRESSION: No dictation required. URI, otalgia. SUBJECTIVE: See Urgent Care shingle of 10/28/01. OBJECTIVE: N/A ASSESSMENT: 1. URI. 2. Otalgia. PLAN: Rapid strep test negative. Symptomatic care discussed using ibuprofen, Tylenol, fluids, and rest. Reassess as needed. TT: CT: [id number] C: DOCUMENT: [id number] Anjum Armstorng MBBS - 04/29/2001 12:01 AM CDT Progress Notes signed by Anjum Ziegler MD at 06/11/022021 Author: Anjum Ziegler MD Service: (none) Author Type: Physician Filed: 11/28/10 0053 Note Time: 04/29/01 0001 Status: Signed Veterinary Nurse: Anjum Ziegler MD (Physician) IMPRESSION: No dictation [...] days. Return to clinic p.r.n. worsening symptoms. [facility]:[id number] C: DOCUMENT: [id number] Fatimah Valles MD - 05/03/1997 12:01 AM CDT Progress Notes signed by at 05/15/97 1703 Author: Fatimah Diego MD Service: (none) Author Type: (none) Filed: 11/27/10 0105 Note Time: 05/03/97 0001 Status: Signed Veterinary Nurse: Graciela Salazar IMPRESSION: Headache with neck stiffness. [...] Care and admitted her to the hospital. [facility] NA Salazar [facility] - 03/02/1997 12:01 AM CDT Progress Notes signed by at 06/11/022021 Author: Graciela Conversion Service: (none) Author Type: (none) Filed: 11/27/10 0018 Note Time: 03/02/97 0001 Status: Signed Veterinary Nurse: Graciela Salazar IMPRESSION: No dictation required. SUBJECTIVE: N/A OBJECTIVE: N/A ASSESSMENT: N/A PLAN: N/A [facility] SCHEDULED RESOURCE: JAMAAL BLANCAS / JÚNIOR. Rosie Colunga MD - 01/04/1997 12:01 AM CDT Progress Notes signed by Rosie Montano MD at 01/19/97 1236 Author: Rosie Montano MD Service: (none) Author Type: Physician Filed: 11/26/10 2926 Note Time: 01/04/97 0001 Status: Signed Veterinary Nurse: Rosie Montano MD (Physician) IMPRESSION: Urinary tract infection. SUBJECTIVE: 30-year-old female had urinary symptoms starting a week ago. She was seen and prescription was Septra for bladder infection. [place] a little better for 2 days but [...] Service: (none) Author Type: Physician Filed: 11/26/10 0904 Note Time: 12/29/96 0001 Status: Signed Veterinary Nurse: Brandon Wagner MD (Physician) IMPRESSION: Cystitis. SUBJECTIVE: Csqmpa-xpp-zily-old female who is complaining of urinary frequency, [...] Service: (none) Author Type: Physician Filed: 11/26/10 4341 Note Time: 11/14/96 0001 Status: Signed Veterinary Nurse: Darshan Dumont MD (Physician) IMPRESSION: Urticaria. SUBJECTIVE: 31-year-old who broke out in hives on Thursday. 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 She was ill [...] Service: (none) Author Type: Physician Filed: 11/26/10 2091 Note Time: 10/05/96 0001 Status: Signed Veterinary Nurse: Shayy Frias MD (Physician) IMPRESSION: Urinary tract [...] 11/26/102123 Note Time: 06/22/96 0001 Status: Signed Veterinary Nurse: Kimberly Vences MD (Physician) IMPRESSION: Pelvic pain [...] tests are back and she sees a clerical specialist. She will set up an appointment to be rechecked at the end of this week or early next week. TJ Evie Iqbal MD - 06/03/1996 12:01 AM CDT Progress Notes signed by Evie Vyas MD at 06/19/96 1643 Author: Evie Vyas MD Service: (none) Author Type: Physician Filed: 11/26/102111 Note Time: 06/03/96 0001 Status: Signed Veterinary Nurse: Evie Vyas MD (Physician) IMPRESSION: Mild acne, [...] PLAN: N/A. cc: Evie Vyas M.D., Dermatology, [place]. [email or web address] T METAL INSTALLER [facility], [facility] - 02/03/1996 12:01 AM CDT Progress Notes signed by at 06/11/022021 Author: Graciela Conversion Service: (none) Author Type: (none) Filed: 11/26/102001 Note Time: 02/03/96 0001 Status: Signed Veterinary Nurse: Graciela Salazar IMPRESSION: No dictation required. SUBJECTIVE: N/A OBJECTIVE: N/A ASSESSMENT: N/A PLAN: N/A [facility] SCHEDULED RESOURCE: JAMAAL BLANCAS / JÚNIOR. T METAL INSTALLER Conversion, [facility] - 12/02/1995 12:01 AM CDT Progress Notes signed by at 06/11/022021 Author: Graciela Conversion Service: (none) Author Type: (none) Filed: 11/26/101925 Note Time: 12/02/95 0001 Status: Signed Veterinary Nurse: Graciela Salazar IMPRESSION: No dictation required. SUBJECTIVE: N/A OBJECTIVE: N/A ASSESSMENT: N/A PLAN: N/A [facility] SCHEDULED RESOURCE: JAMAAL BLANCAS / JÚNIOR. Darshan Padilla MD - 10/19/1995 12:01 AM CST Progress Notes signed by Darshan Dumont MD at 11/01/95 1626 Author: Darshan Dumont MD Service: (none) Author Type: Physician Filed: 11/26/10 1900 Note Time: 10/19/95 0001 Status: Signed Veterinary Nurse: Darshan Dumont MD (Physician) IMPRESSION: Hip and knee contusions. 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 Otitis [...] of improvement in 3-5 days, she should meat pickler some [id number] Lotrimin. Also suggested using Bacitracin in the nose b.i.d., and add humidity to her home. [facility] Darshan Padilla MD - 04/15/1995 12:01 AM CDT Progress Notes signed by Darshan Dumont MD at 05/08/952029 Author: Darshan Dumont MD Service: (none) Author Type: Physician Filed: 11/26/10 1738 Note Time: 04/15/95 0001 Status: Signed Veterinary Nurse: Darshan Dumont MD (Physician) IMPRESSION: Ankle strain/contusion. [...] Discussed symptomatic therapy. Follow up as needed. [facility] documented in this encounter Plan of Treatment Not on filedocumented as of this encounter Procedures Procedure Name Priority Date/Time Associated Comments Diagnosis STREP GROUP A Routine 10/28/2001 8:53 PM Results for this ANTIGEN TEST SHEET METAL INSTALLER procedure are i n the results section. BETA STREP FOLLOWUP Routine 10/28/2001 8:53 PM Re sults for this SHEET METAL INSTALLER procedure are i n the results section. ANC RESULT Routine 05/03/1997 4:17 PM Results f or this CONVERSION DEFAULT CDT procedure are in ORDER the results section. ANC RESULT Routine 10/19/1995 12:08 PM Results for this CONVERSION DEFAULT SHEET METAL INSTALLER procedure are in ORDER the results section. ANC RESULT Routine 10/19/1995 12:08 PM Results for this CONVERSION DEFAULT SHEET METAL INSTALLER procedure are in ORDER the results section. ANC RESULT Routine 04/15/1995 9:47 AM Results f or this CONVERSION DEFAULT CDT procedure are in ORDER the results section. documented in this encounter Results Strep Group A Antigen Test (10/28/2001 8:53 PM SHEET METAL INSTALLER) Analysis Performed At [facility] Time Signature Strep Group A Negative Negative HP CONVERSION Antigen Test Comment: Culture to follow. Specimen (Source) Anatomical Collection Method Collection Time Re ceived Time Location / / Volume Laterality 10/28/2001 8:53 PM SHEET METAL INSTALLER Luis Enrique M Festus MD LAB_1 Performing Organization Address City/State/ZIP Code Phon e Number HP CONVERSION Beta Strep Followup (10/28/2001 8:53 PM SHEET METAL INSTALLER) athologist Signature Strep Screen SEE TEXT HP CONVERSION Comment: Patient: MARIUSZ LOYOLA Rapid Strep Follow up Culture @ ? Collected: ?2052 Source: Throat ?Processed: ?2053 ? 1V Final Report ------ ?[id number] ??1332 No beta hemolytic Strep group A isolated . @ = Rapid F/U Cult Performed at ??[address] [place] ?[address] Specimen (Source) Anatomical Collection Method Collection Time Re ceived Time Location / / Volume Laterality 10/28/2001 8:53 PM SHEET METAL INSTALLER Luis Enrique Mortensen MD LAB_1 Performing Organization [...] Result Conversion Default Order (10/19/1995 12:08 PM SHEET METAL INSTALLER) Anatomical Region Laterality Modality Other Specimen (Source) Anatomical Location Collection Method / Collectio n Time Received Time / Laterality Volume Narrative 10/19/1995 12:08 PM SHEET METAL INSTALLER CLINICAL DATA: ?FELL ON THE ICE THIS [...] Result Conversion Default Order (10/19/1995 12:08 PM SHEET METAL INSTALLER) Anatomical Region Laterality Modality Other Specimen (Source) Anatomical Location Collection Method / Collectio n Time Received Time / Laterality Volume Narrative 10/19/1995 12:08 PM SHEET METAL INSTALLER CLINICAL DATA: ?FELL ON THE ICE THIS [...]
--- OUTSIDE RECORDS SUMMARY | 2022-07-15 06:41 | XMS_ITS | Encounter Summary ---
:1965 Author Organization [facility] Address [address] [place] [address] Care Team Providers Name Role Phone Unavailable Primary Care Provider Unavailable Encounter Details Date Type Department Care Team Description 10/10/2005 PN Conversion Only [facility] [address] [facility] [place] [address] Social History Tobacco Use Types Packs/Day Years Used Date Smoking Tobacco: Never Assessed Sex Assigned at Date Recorded Not on file documented as of this encounter Plan of Treatment Not on filedocumented as of this encounter Visit Diagnoses Not on filedocumented in this encounter
--- OUTSIDE RECORDS SUMMARY | 2022-07-15 06:41 | XMS_ITS | Encounter Summary ---
:1965 Author Organization [facility] Address [address] [place] [address] Care Team Providers Name Role Phone Unavailable Primary Care Provider Unavailable Reason for Visit Reason Comments Cough Encounter Details Date Type Department Care Team Description 11/12/2021 Office Visit [place] [address] Urgent Gurdeep Tyler PA-C Cough; Care [address] [place]; [address] [place] [address] [place] [address] [phone] Social History Tobacco Use Types Packs/Day Years [...] 20 seconds, or use an alcohol-based hand rand maker containing 60% to 95% alcohol. Avoid touching [...] in Clinic Today (11/12/2021 12:07 PM CDT) [facility] Method Time Signature COVID-19 Not Not 11/13/2021 [facility] Interpretation Detected Detected 1:45 AM CENTRAL LAB CDT Source Nares, left 11/13/2021 [facility] and right 1:45 AM CENTRAL LAB CDT Specimen Anatomical Collection Method Collection Time Receive d Time (Source) Location / / Volume Laterality Swab (Source ENTIRE ANTERIOR Non-blood 11/12/2021 12:07 11/13/19 22 3:09 Required) NARIS / Unknown Collection / PM CDT PM CDT Unknown Narrative [facility] - 11/13/2021 1:45 AM CDT Test performed by Fish And Wildlife Technician Mediated Amplification. TMA has been shown to be equivalent to commercial real-time PCR t ests. This test has been authorized by the FDA under Emergency Use Authorization (E UA) for use by authorized laboratories. Anjum SPAULDING LAB_1 Performing Organization Address City/State/ZIP Code Phon e Number [facility] [address] [address] documented in this encounter Visit Diagnoses Diagnosis Cough Uvulitis Cellulitis and abscess of oral soft tiss ues Viral [place] Acute upper respiratory infections of un specified site documented in this encounter Additional Health Concerns Infection Onset Date Last Indicated Resolved Time R/O COVID19 11/12/2021 11/12/2021 11/13/2021 1:45 AM CDT documented as of this encounter
--- OUTSIDE RECORDS SUMMARY | 2022-07-15 06:41 | XMS_ITS | Encounter Summary ---
:1965 Author Organization [facility] Address [address] [place] [address] Care Team Providers Name Role Phone Needs Pcp, Assignment Primary Care Provider Encounter Details Date Type Department Care Team Description 12/03/2021 delfina Nickerson [phone] Social History Tobacco Use Types Packs/Day Years [...] try an antibiotic. I sent a prescriptionto [facility] . I've also listed a few of [...] dissolved in water. Refills: None Sent To: [facility] [address] [phone] Treatment Plan Self Care Tip Topics Warm [...] Bactrim (sulfamethoxazole-trimethoprim), oral Augmentin (amoxicillin-pot clavulanate), oral VODECLIC Information [facility] [employer] We are an online clinic open 02/03. If you have any questions or comments about this visit, please call or email [email or web address]. documented in this encounter Plan of Treatment Not on filedocumented as of this encounter Visit Diagnoses Not on filedocumented in this encounter Care Teams Cancer Registry Coordinator Relationship Specialty Start Date End Date Needs Pcp, Assignment PCP - General 11/15/21 [place] [address] documented as of this encounter
--- OUTSIDE RECORDS SUMMARY | 2022-07-15 06:41 | XMS_ITS | Encounter Summary ---
:1965 Author Organization [facility] Address [address] [place] [address] Care Team Providers Name Role Phone Unavailable Primary Care Provider Unavailable Reason for Visit Reason Comments DIZZINESS Encounter Details Date Type Department Care Team Description 03/16/2020 Nurse Triage Careline Unknown, Physician DIZZINESS [address] [place], [place] [address] [place] [address] [phone] (Wo rk) Social History Tobacco Use Types [...] WORSE Protocols used: INFECTION ON ANTIBIOTIC FOLLOW-UP [id number] PLAN: Advised patient to be seen at the ED or to call her PCP office for further recommendation. Patient verbalized understanding and agrees with plan. Advised patient/caller to call back CareLine if there are further questions. The CareLine is available 02/03. Ntiza Vasquez RN 03/16/2020, 8:10 PM Cielo Gonzalez - 03/16/2020 7:59 PM CDT Verified patient identity using three identifiers: Yes Caller's relationship to patient: Self At which care system or clinic is the patient normally seen? [facility] Symptoms Describe the reason for call/symptoms (include location and duration if applicable): pt states she was diagnosed with a kidney infection yesterday and today she feels very dizzy. Plan:Caller transferred directly to CareLine nurse. documented in this encounter Plan of Treatment Not on filedocumented as of this encounter Visit Diagnoses Not on filedocumented in this encounter
--- OUTSIDE RECORDS SUMMARY | 2022-07-15 06:41 | XMS_ITS | Encounter Summary ---
:1965 Author Organization [facility] Address [address] [place] [address] Care Team Providers Name Role Phone Unavailable Primary Care Provider Unavailable Encounter Details Date Type Department Care Team Description 12/07/1995 PN Conversion Only RELIG[place] [address] [place] [address] (Wo rk) Social History Tobacco [...] NAME:LIZZIE LOYOLA ?CERVICAL CYTOLOGY REPORT Pathology # ??[id number] ?Date Obtained: ?Date Received: LMP: ?11-20-95 CLINICAL [...]
--- OUTSIDE RECORDS SUMMARY | 2022-07-15 06:41 | XMS_ITS | Encounter Summary ---
:1965 Author Organization [facility] Address [address] [place] [address] Care Team Providers Name Role Phone Unavailable Primary Care Provider Unavailable Encounter Details Date Type Department Care Team Description 05/01/2003 [place] [address] [place] [address] Social History Tobacco Use Types [...] 1608 Note Time: 05/01/03 0001 Status: Signed Clocksmith: Chon Beebe MD (Physician) NAME: LIZZIE GRIFFITHS MR: [id number] ACCT: [id number] VISIT: [id number] DICTATING CLINICIAN: CHON BEEBE MD JOB: [id number] CLINIC PROGRESS NOTE DATE OF VISIT: 05/01/2003 [...] back on a per-needed basis. TT: CT: [id number] C: 05/02/03 13:51 DOCUMENT: [id number] documented in this encounter Plan of Treatment Not on filedocumented as of this encounter Visit Diagnoses Not on filedocumented in this encounter
--- OUTSIDE RECORDS SUMMARY | 2022-07-15 06:42 | XMS_ITS | Encounter Summary ---
:1965 Author Organization [place] Address [address] [place] [address] Care Team Providers Name Role Phone Harriet Haley MD Primary Care Provider [phone] Reason for Visit Reason Onset Date Comments Forms 05/23/2016 [facility] Encounter Details Date Type Department Care Team Description 05/23/2016 [facility] Jossy Florentino DO Forms ([facility]) Medicine Clinic [place] [facility] [address] [facility] MED [address] [address] [place] [address] [facility] [phone] [place], [place] [address] (Wo rk) Social History [...] 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 [...] on filedocumented in this encounter Care Teams Ordnance Keeper Relationship Specialty Start Date End Date Harriet Haley MD PCP - General Physician Art Glass Designer 10/01/15 [facility] [address] [place] [address] documented as of this encounter
--- OUTSIDE RECORDS SUMMARY | 2022-07-15 06:42 | XMS_ITS | Encounter Summary ---
:1965 Author Organization [place] Address [address] [place] [address]. [place] [address] Care Team Providers Name Role Phone Harriet Haley MD Primary Care Provider [phone] Reason for Visit Reason Comments Urgent Care UTI Encounter Details Date Type Department Care Team Description 09/23/2017 Office Visit [facility] Briana Banuelos Dysuria (Primary Dx); Urgent Care Shaan Peres MD Nonspecific finding on examination of ur ine; [address] [place] [address] [place] [address] [phone] Social History Tobacco Use Types Packs/Day Years [...] Comments Blood Pressure 122/79 09/23/2017 6:47 PM ADVANCED PRACTICE REGISTERED NURSE Pulse 121 09/23/2017 6:47 PM ADVANCED PRACTICE REGISTERED NURSE Temperature 36.6 ??C (97.9 ??F) 09/23/2017 6:47 PM ADVANCED PRACTICE REGISTERED NURSE Respiratory Rate 14 09/23/2017 6:47 PM ADVANCED PRACTICE REGISTERED NURSE Oxygen Saturation 96% 09/23/2017 6:47 PM ADVANCED PRACTICE REGISTERED NURSE Inhaled Oxygen Concentration - - Weight 99.8 kg (220 lb) 09/23/2017 6:47 PM ADVANCED PRACTICE REGISTERED NURSE Height - - Body Mass Index 33.45 09/28/2016 2:53 PM ADVANCED PRACTICE REGISTERED NURSE documented in this encounter Patient Instructions Patient InstructionsBriana Banuelos MD - 09/23/2017 7:46 PM CST Images [...] in the labia (outer vaginal area) ?? [phone] [employer]. [address] [place] [address], [place] [address]. All rights reserved. This information is not intended as a substitute for professional medical care. Always follow your healthcare professional's instructions. This information has been modified by your health care provider with permission from the publisher. NCED PRACTICE REGISTERED NURSE documented in this encounter Progress Notes Briana [...] the antibiotic to better cover the infection. NCED PRACTICE REGISTERED NURSE documented in this encounter Nursing Notes Jennifer [...] lb (99.8 kg). Medication Reconciliation: franck Mohan IMPLEMENTATION ANALYST NCED PRACTICE REGISTERED NURSE documented in this encounter Plan of Treatment Not on filedocumented as of this encounter Procedures Procedure Name Priority Date/Time Associated Diagnosis Comme nts URINE CULTURE Routine 09/23/2017 7:31 PM Nonspecific finding R esults for this ADVANCED PRACTICE REGISTERED NURSE on examination of procedure are in urine the results section. URINE MICROSCOPIC Routine 09/23/2017 7:00 PM Dysuria Resu lts for this ADVANCED PRACTICE REGISTERED NURSE procedure are i n the results section. documented in this encounter Results (ABNORMAL) Urine Culture Aerobic Bacterial (09/23/2017 7:31 PM ADVANCED PRACTICE REGISTERED NURSE) Component Value Ref Test Analysis Performed At Patholo gist Range Method Time Signature Specimen Midstream Urine [facility] Culture Micro >100,000 colonies/mL 09/25/2017 [facility] OF Escherichia coli 9:20 PM ADVANCED PRACTICE REGISTERED NURSE [facility] (A) [facility] Specimen (Source) Anatomical Collection Method Collection Time Re ceived Time Location / / Volume Laterality Examination of 09/23/2017 7:31 09/23/2017 7:33 midstream urine PM ADVANCED PRACTICE REGISTERED NURSE PM ADVANCED PRACTICE REGISTERED NURSE specimen (procedure) Organism Antibiotic Method Susceptibility Escherichia [...] MICRO GENERAL ORDERABL ES Performing Organization Address City/[facility] Phon e Number [facility] [address] [place] [address] [place] (ABNORMAL) Urine Microscopic (09/23/2017 7:00 PM ADVANCED PRACTICE REGISTERED NURSE) [facility] gist Method Time Signature WBC Urine >100 (A) OTO2^O - 09/23/2017 [place] 2 /HPF 7:16 PM ADVANCED PRACTICE REGISTERED NURSE [facility] RBC Urine 10-25 (A) OTO2^O - 09/23/2017 [facility] 2 /HPF 7:16 PM ADVANCED PRACTICE REGISTERED NURSE [facility] [place] Squamous Moderate (A) FEW^Few 09/23/2017 [place] Epithelial /LPF 7:16 PM ADVANCED PRACTICE REGISTERED NURSE CLINICS /LPF Urine [place] Bacteria Urine Many (A) NEG^Negat 09/23/2017 [place] /HPF 7:16 PM ADVANCED PRACTICE REGISTERED NURSE [facility] Specimen Anatomical Collection Method Collection Time Receive d Time (Source) Location / / Volume Laterality 09/23/2017 7:00 PM 8 7:10 ADVANCED PRACTICE REGISTERED NURSE PM ADVANCED PRACTICE REGISTERED NURSE Briana Banuelos MD LAB - URINE ORDERABLES Performing Organization Address City/[facility]/ZIP Code Phon e Number [facility] [address] [place] [address] documented in this encounter Visit Diagnoses Diagnosis Dysuria - Primary Nonspecific finding on examination of ur ine Other nonspecific finding on examination of urine Acute cystitis without hematuria Acute cystitis documented in this encounter Care Teams Automobile Radio Repairer Relationship Specialty Start Date End Date Harriet Haley MD PCP - General Physician Engraver Picture 10/01/15 [facility] [address] [place] [address] documented as of this encounter
--- OUTSIDE RECORDS SUMMARY | 2022-07-15 06:42 | XMS_ITS | Encounter Summary ---
:1965 Author Organization [place] Address [facility] [place] [address] Care Team Providers Name Role Phone Harriet Haley MD Primary Care Provider [phone] Reason for Visit Reason Comments Urgent Care Musculoskeletal Problem Left foot pain Encounter Details Date Type Department Care Team Description 07/06/2016 Office Visit [facility] Gates Liu, Pain o f toe of left Urgent Care Shaan kelly MD foot (Primary Dx) [address] [facility] [address] [place] [address] [phone] Social History Tobacco Use Types Packs/Day Years [...] Comments Blood Pressure 138/74 07/06/2016 10:35 AM HEEL BURNISHER Pulse 84 07/06/2016 10:35 AM HEEL BURNISHER Temperature 36.9 ??C (98.4 ??F) 07/06/2016 10:35 AM HEEL BURNISHER Respiratory Rate 18 07/06/2016 10:35 AM HEEL BURNISHER Oxygen Saturation 98% 07/06/2016 10:35 AM HEEL BURNISHER Inhaled Oxygen Concentration - - Weight 109.3 kg (241 lb) 07/06/2016 10:35 AM HEEL BURNISHER Height 172.7 cm (5' 8) 07/06/2016 10:35 AM HEEL BURNISHER Body Mass Index 36.64 07/06/2016 10:35 AM HEEL BURNISHER documented in this encounter Progress Notes Liu [...] PLAN: NSAID, ice suggested See orders in [facility]. BURNISHER documented in this encounter Nursing Notes Jennifer [...] BP completed using cuff size: chrissy Mohan HAND EDGER BURNISHER documented in this encounter Plan of Treatment Not on filedocumented as of this encounter Results XR Foot Left G/E 3 Views (07/06/2016 10:55 AM HEEL BURNISHER) Anatomical Region Laterality Modality Foot, Ankle Left Computed Radiography Specimen (Source) Anatomical Location Collection Method / Collectio n Time Received Time / Laterality Volume Impressions 07/06/2016 12:08 PM HEEL BURNISHER IMPRESSION: Bones are normally aligned. Moderate inferior calcaneal heel spur. No acute fracture. KANA ORNELAS MD Narrative 07/06/2016 12:08 PM HEEL BURNISHER LEFT FOOT THREE OR MORE VIEWS ??07/06/2016 [...] limb documented in this encounter Care Teams Lacing Presser Relationship Specialty Start Date End Date Harriet Haley MD PCP - General Physician Developing Machine Tender 10/01/15 [facility] [address] [place] [address] documented as of this encounter
--- OUTSIDE RECORDS SUMMARY | 2022-07-15 06:42 | XMS_ITS | Encounter Summary ---
:1965 Author Organization [place] Address [address] [place] [address] Care Team Providers Name Role Phone Harriet Haley MD Primary Care Provider [phone] Reason for Visit Reason Comments Musculoskeletal Problem Encounter Details Date Type Department Care Team Description 05/09/2016 [facility] ft foot [facility] Sports Medicine DO (Primary Dx) Clinic [address] SPORTS MED [address] [address] [place] [address] [facility] [address] [place], [place] [address] (Wo rk) Social History [...] Patient Instructions Patient InstructionsJossy Kilgore DO - 05/09/2016 12:04 PM CDT Thank you for allowing us to participate in your care today. Please find below your visit diagnosis and the plan going forward. 1. Left foot pain Activity modification as discussed - keep wearing the boot MRI of your left foot has been ordered. Schedule with Lida ([phone]). Once you know the date of your MRI, please call my office and schedule a follow- up visit for 2 days after that. Follow up 2 days after your MRI in the office to discuss the results. Call direct clinic number [[phone]] at any time with questions or concerns. Jossy Kilgore DO CAQSM [facility] documented in this encounter Progress Notes Jossy Kilgore DO - 05/09/2016 11:22 AM CDT [facility] Clinic Visit May [...] an acute precipitating event. She was seen [facility] Urgent care on 04/30/2016. Xrays [...] about it and was referred back to [facility]. However,she stopped in at the [facility] instead on 05/08 and new films were taken and she was referred here. Initial treatment has consisted of ice, Tylenol, ibuprofen, other medications: Hy drocodone/Acetaminophen (Vicodin/[place]) and previous imaging (xray see below) with [...] in the office. Call direct clinic number [phone] at any time with questions or concerns. Instructed to call the office if the condition evolves or worsens. Patient's conditions were thoroughly discussed during today's visit with greater than 50% of the visit spent counseling the patient with total time spent [id number] with the patient being 25 minutes. Jossy Kilgore DO [facility] documented in this [...] above. YEMI COATES MD Jossy Kilgore DO [facility] MRI ORDERABLES documented in this encounter Visit Diagnoses Diagnosis Left foot pain - Primary Pain in limb Left foot pain Pain in limb documented in this encounter Care Teams Asphalt Raker Relationship Specialty Start Date End Date Harriet Haley MD PCP - General Physician Student Financial Aid Manager 10/01/[address] [address] documented as of this encounter
--- OUTSIDE RECORDS SUMMARY | 2022-07-15 06:42 | XMS_ITS | Encounter Summary ---
:1965 Author Organization [place] Address [address] [place] [address] Care Team Providers Name Role Phone Harriet Haley MD Primary Care Provider [phone] Encounter Details Date Type Department Care Team Description 04/15/2017 Radiant Appointment [facility] [place] [address] [address] [phone] Social History Tobacco Use Types Packs/Day Years [...] fourth toes. 2. No fracture or malalignment. OYNATAN HAMLIN MD Narrative 04/16/2017 4:52 PM CDT [...] limb documented in this encounter Care Teams Rn Cardiovascular Icu Relationship Specialty Start Date End Date Harriet Haley MD PCP - General Physician Director Of Player Personnel 10/01/15 [place] [address] [place] [address] documented as of this encounter
--- OUTSIDE RECORDS SUMMARY | 2022-07-15 06:42 | XMS_ITS | Encounter Summary ---
:1965 Author Organization [place] Address [address] [place] [address] Care Team Providers Name Role Phone Harriet Haley MD Primary Care Provider [phone] Reason for Visit Reason Onset Date Comments Patient Reminder 02/17/2018 Call for appointment 02/19/18 Encounter Details Date Type Department Care Team Description 02/17/2018 Telephone [facility] Gastroenterology Jacy Arredondo, Patient Reminder (Call and IBD pipe stripper for appointment [address] [place] [address] 02/19/18) [address] [place] [phone] Social History Tobacco Use Types Packs/Day [...] on filedocumented in this encounter Care Teams Automation Lead Relationship Specialty Start Date End Date Harriet Haley MD PCP - General Physician Wind Turbine Design Engineer 10/01/15 [facility] [address] [facility] [address] documented as of this encounter
--- OUTSIDE RECORDS SUMMARY | 2022-07-15 06:42 | XMS_ITS | Encounter Summary ---
:1965 Author Organization [place] Address [address] [place] [address] Care Team Providers Name Role Phone Harriet Haley MD Primary Care Provider [phone] Reason for Visit Reason Onset Date Comments Patient/info Update 06/25/2016 Encounter Details Date Type Department Care Team Description 06/25/2016 Telephone [facility] Jossy Kilgore Pa tient/info Update Sports Medicine Clinic [facility] [address] [facility] MED [address] [address] [place] [address] [facility] [address] [place], [place] [address] (Wo rk) Social History [...] phone call. Closing encounter. Carlos Roth ATC EAD TRIMMER AND WRAPPER Telephone Encounter - John Solano - 06/25/2016 [...] further questions or concerns. John Solano ATC EAD TRIMMER AND WRAPPER documented in this encounter Plan of Treatment Not on filedocumented as of this encounter Visit Diagnoses Not on filedocumented in this encounter Care Teams Boot Trimmer Relationship Specialty Start Date End Date Harriet Haley MD PCP - General Physician Cook Candy 10/01/15 [place] [address] [facility] [place] [address] documented as of this encounter
--- OUTSIDE RECORDS SUMMARY | 2022-07-15 06:42 | XMS_ITS | Encounter Summary ---
:1965 Author Organization [place] Address [address] [place] [address]. [place] [address] Care Team Providers Name Role Phone Harriet Haley MD Primary Care Provider [phone] Reason for Visit Reason Comments Urgent Care Trauma R foot had been painful for x4 days, tried icing and resting it. Worked last night and she came home and foot was swollen. Hx of stress Fx on L foot. Encounter Details Date Type Department Care Team Description 04/15/2017 Office Visit [facility] Briana Banuelos Right fo ot pain (Primary Dx); Urgent Care Shaan Peres MD Metatarsalgia of right foot [address] [facility] [address] [place] [address] Social History Tobacco Use Types Packs/Day Years [...] metatarsal bone. Date Last Reviewed: 05/08/2015 ?? [phone] [employer]. [address] [place] [address]. All rights reserved. This information is not [...] foot care. Date Last Reviewed: 05/08/2015 ?? [phone] [employer]. [address] [place] [address]. All rights reserved. This information is not [...] the foot. Date Last Reviewed: 04/19/2015 ?? [phone] [employer]. [address] [place] [address]. All rights reserved. This information is not [...] limb documented in this encounter Care Teams Field Sampling Technician Relationship Specialty Start Date End Date Harriet Haley MD PCP - General Physician Senior Administrator Support 10/01/15 [facility] [address] [place] [address] documented as of this encounter
--- OUTSIDE RECORDS SUMMARY | 2022-07-15 06:42 | XMS_ITS | Encounter Summary ---
:1965 Author Organization [place] Address [address] [place] [address] Care Team Providers Name Role Phone Harriet Haley MD Primary Care Provider [phone] Reason for Visit (Routine) - Closed Specialty Diagnoses / Procedures Referred By Contact Refer red To Contact Radiology / Radiology. Diagnoses sb pt [place] [address] [facility] [address] [place] [address] Phone: Fax: Referral ID Status Reason Start Date Expiration Date Visits Requ ested Visits Authorized [id number] Closed 05/16/2016 05/12/2017 1 1 Encounter Details Date Type Department Care Team Description 05/16/2016 Hospital Encounter [facility] Magui Jessiemercy Br ee, [place] [address] [employer] [facility] [place] [address] [place] [address] [facility] [address] [address] [place], [place] [address] (Wo rk) Social History [...] above. YEMI COATES MD Jossy Kilgore DO [facility] MRI ORDERABLES documented in this encounter Visit Diagnoses Diagnosis Left foot pain Pain in limb documented in this encounter Care Teams Boatswains Mate Relationship Specialty Start Date End Date Harriet Haley MD PCP - General Physician Venetian Blind Maker 10/01/15 [facility] [address] [place] [address] documented as of this encounter
--- OUTSIDE RECORDS SUMMARY | 2022-07-15 06:42 | XMS_ITS | Encounter Summary ---
:1965 Author Organization [place] Address [address] [place] [address] Care Team Providers Name Role Phone Harriet Haley MD Primary Care Provider [phone] Reason for Visit Reason Onset Date Comments Foot Pain 07/10/2016 Encounter Details Date Type Department Care Team Description 07/10/2016 Telephone [facility] Jossy Florentino DO Foot Pain Medicine Clinic [place] [facility] [address] [address] [facility] [address] [place] [address] [place] [address] [phone] (Wo rk) Social History Tobacco Use Types [...] left message informing patient. Erasmo Cardona RN TH AND SAFETY MANAGER Telephone Encounter - Carlos Roth - 07/10/2016 [...] Approved, printed and signed. Jossy Kilgore DO, [facility] TH AND SAFETY MANAGER Telephone Encounter - Kalyani Cardona RN - [...] compliant in the boot x 4 weeks.?? mix house tender on palpation.?? Continue with boot as [...] to lm Please advise. Erasmo Cardona, RN TH AND SAFETY MANAGER documented in this encounter Plan of Treatment Not on filedocumented as of this encounter Visit Diagnoses Diagnosis Stress fracture of right foot with routi ne healing, subsequent encounter - Primary documented in this encounter Care Teams Veneer Press Operator Relationship Specialty Start Date End Date Harriet Haley MD PCP - General Physician Medical Intern 10/01/15 [facility] [address] [place], [place] [address] [address] documented as of this encounter
--- OUTSIDE RECORDS SUMMARY | 2022-07-15 06:42 | XMS_ITS | Encounter Summary ---
:1965 Author Organization [place] Address [address] [place] [address] Care Team Providers Name Role Phone Harriet Haley MD Primary Care Provider [phone] Reason for Visit Reason Comments RECHECK Encounter Details Date Type Department Care Team Description 06/09/2016 Office Visit [facility] Jossy Kilgore St ress fracture of Sports Medicine DO metatarsal bone of Clinic [place] [address] [email or web address] SPORTS MED routine healing [address] [address] [facility] (Primary Dx) [place] [address] [address] [place], [place] [address] (Wo rk) Social History [...] Patient Instructions Patient InstructionsJossy Kilgore DO - 06/09/2016 1:21 PM CDT Thank [...] (sooner if needed; call direct clinic number [[phone]] at any time with questions or concerns) Jossy Kilgore DO CAQSM [facility] documented in this encounter Progress Notes Jossy Kilgore DO - 06/09/2016 1:02 PM CDT [facility] Clinic Visit Jun [...] in 4 weeks. Call direct clinic number [phone] at any time with questions or concerns.Instructed to call the office if the condition evolves or worsens. Patient's conditions were thoroughly discussed during today's visit with greater than 50% of the visit spent counseling the patient with total time spent [id number] with the patient being 25 minutes. Jossy Kilgore DO [facility] documented in this encounter Nursing Notes Carlos Roth - 06/09/2016 1:05 PM CDT Chief Complaint [...] Primary documented in this encounter Care Teams Finance Lead Relationship Specialty Start Date End Date Harriet Haley MD PCP - General Physician Dealer Accounts Investigator 10/01/15 [facility] [address] [place] [address] [place] [address] documented as of this encounter
--- OUTSIDE RECORDS SUMMARY | 2022-07-15 06:42 | XMS_ITS | Encounter Summary ---
:1965 Author Organization [facility] Address [address] [place] [address] Care Team Providers Name Role Phone Harriet Haley MD Primary Care Provider [phone] Reason for Visit Reason Comments RECHECK Encounter Details Date Type Department Care Team Description 05/19/2016 Office Visit [facility] Jossy Kilgore, Le ft foot pain (Primary Dx); Sports Medicine DO Stress fracture of metatarsal bone of le ft foot with routine healing Clinic [facility] [address] [place] [address] [facility]TS MED [address] [address] [place] [address] [facility] [address] [place], [place] [address] (Wo rk) Social History [...] Patient Instructions Patient InstructionsJossy Kilgore DO - 05/19/2016 1:31 PM CDT Thank [...] sooner if needed; call direct clinic number [[phone]] at any time with questions or concerns. Jossy Kilgore DO CAQSM [facility] documented in this encounter Progress Notes Jossy Kilgore DO - 05/19/2016 1:15 PM CDT [facility] Clinic Visit May [...] in 2-3 weeks. Call direct clinic number [phone] at any time with questions or concerns. Instructed to call the office if the condition evolves or worsens. Patient's conditions were thoroughly discussed during today's visit with greater than 50% of the visit spent counseling the patient with total time spent [id number] with the patient being 25 minutes. Jossy Kilgore DO CAQSM [facility] documented in this [...] healing documented in this encounter Care Teams Automotive Starter Repairer Relationship Specialty Start Date End Date Harriet Haley MD PCP - General Physician Litigation Manager 10/01/[address] [place] [address] documented as of this encounter
--- OUTSIDE RECORDS SUMMARY | 2022-07-15 06:42 | XMS_ITS | Encounter Summary ---
:1965 Author Organization [facility] Address [address] [place] [address] Care Team Providers Name Role Phone Harriet Haley MD Primary Care Provider [phone] Reason for Visit Reason Comments Leg Pain bilateral leg pain and swell ing Encounter Details Date Type Department Care Team Description 06/26/2016 Emergency [facility] Rebecca Thompson, Peripheral edema Emergency Dept [address] [facility] [place], [place] [address] [facility] [address] [place] [address] [phone] (Wo rk) Social History Tobacco Use Types [...] Comments Blood Pressure 119/66 06/26/2016 11:46 PM WOOD FURNITURE ASSEMBLER Pulse 103 06/26/2016 8:56 PM WOOD FURNITURE ASSEMBLER Temperature 36.8 ??C (98.3 ??F) 06/26/2016 8:56 PM WOOD FURNITURE ASSEMBLER Respiratory Rate 14 06/26/2016 11:55 PM WOOD FURNITURE ASSEMBLER Oxygen Saturation 96% 06/26/2016 11:48 PM WOOD FURNITURE ASSEMBLER Inhaled Oxygen Concentration - - Weight 109.4 kg (241 lb 2.9 oz) 06/26/2016 8:56 PM WOOD FURNITURE ASSEMBLER Height 172.7 cm (5' 8) 06/26/2016 8:56 PM WOOD FURNITURE ASSEMBLER Body Mass Index 36.67 06/26/2016 8:56 PM WOOD FURNITURE ASSEMBLER documented in this encounter Discharge Instructions Discharge InstructionsVan Rebecca Casanova MD - 06/26/2016 11:39 PM WOOD FURNITURE ASSEMBLER Images from the original note were not [...] insufficiency or varicose veins, don't sit or commercial fishing vessel operator one place for long periods of [...] eyes ?? Rapid, unexplained weight gain ? [id number] [employer]. [address] [place] [address]. All rights reserved. This information is not intended as a substitute for professional medical care. Always follow your healthcare professional's instructions. FURNITURE ASSEMBLER documented in this encounter Medications at Time [...] prescribed intentionally due to {CHOOSE REASON BEFORE SIGNING!!!:518089} DULoxetine HCl Take 120 mg by mouth [...] understanding of d/c instructions and ambulated to [facility]. FURNITURE ASSEMBLER Tresa Cassidy RN - 06/26/2016 11:13 PM CST Pt refuses extension edger to be applied FURNITURE ASSEMBLER Tresa Cassidy RN - 06/26/2016 11:03 PM CST Pt refuses blood pressure cuff. Pt refused to remove bra for EKG FURNITURE ASSEMBLER Rebecca Thompson MD - 06/26/2016 9:23 PM [...] observations and the provider's statements to me. 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 US LOWER EXTREMITY STAT 06/26/2016 10:48 Resul ts for this VENOUS DUPLEX PM WOOD FURNITURE ASSEMBLER procedure are in BILATERAL the results section. EKG 12-LEAD, TRACING STAT 06/26/2016 9:57 PM R esults for this ONLY WOOD FURNITURE ASSEMBLER procedure are i n the results section. CBC WITH PLATELETS & STAT 06/26/2016 9:40 PM R esults for this DIFFERENTIAL WOOD FURNITURE ASSEMBLER procedure are i n the results section. TROPONIN I STAT 06/26/2016 9:40 PM Results f or this WOOD FURNITURE ASSEMBLER procedure are i n the results section. COMPREHENSIVE STAT 06/26/2016 9:40 PM Results for this METABOLIC PANEL WOOD FURNITURE ASSEMBLER procedure ar e in the results section. documented in this encounter Results XR Chest 2 Views (06/26/2016 11:03 PM WOOD FURNITURE ASSEMBLER) Anatomical Region Laterality Modality Chest Computed Radiography Specimen (Source) Anatomical Location Collection Method / Collectio n Time Received Time / Laterality Volume Impressions 06/26/2016 11:12 PM WOOD FURNITURE ASSEMBLER IMPRESSION: Mild infiltrate or atelectasis in the left lower lobe. A mild pneumonia could have this appearanc e. Please clinically correlate. The lungs are otherwise clear . No pleural effusions. Heart size and pulmonary vascularity are withi n normal limits. Postoperative changes of fusion in the lower cervical spine. ITZ DUENAS MD Narrative 06/26/2016 11:12 PM WOOD FURNITURE ASSEMBLER CHEST TWO VIEWS ??06/26/2016 11:03 PM HISTORY: [...] extremities, bilateral, venous US (06/26/2016 10:48 PM WOOD FURNITURE ASSEMBLER) Anatomical Region Laterality Modality Vascular, Thigh, Leg Ultrasound Specimen (Source) Anatomical Location Collection Method / Collectio n Time Received Time / Laterality Volume Impressions 06/26/2016 10:57 PM WOOD FURNITURE ASSEMBLER IMPRESSION: No evidence for deep venous thrombosis. MAXWELL PENA MD Narrative 06/26/2016 10:57 PM WOOD FURNITURE ASSEMBLER VENOUS DOPPLER BILATERAL LOWER EXTREMITY 06/26/2016 10:48 [...] EKG 12-lead, tracing only (06/26/2016 9:57 PM WOOD FURNITURE ASSEMBLER) [facility] Method Time Signature Interpretation ECG Click View RADIOLOGY Image link RESULTS to view waveform and result Specimen (Source) Anatomical Collection Method Collection Time Re ceived Time Location / / Volume Laterality 06/26/2016 9:57 PM WOOD FURNITURE ASSEMBLER Rebecca Thompson MD ECG ORDERABLES Performing Organization Address City/[facility]/ZIP [facility] Phon e Number RADIOLOGY RESULTS (ABNORMAL) Comprehensive metabolic panel (06/26/2016 9:40 PM WOOD FURNITURE ASSEMBLER) athologist Signature Sodium 138 133 - 144 [place] mmol/L [facility] Potassium 3.6 3.4 - 5.3 [place] mmol/L [facility] Chloride 104 94 - 109 [place] mmol/L [facility] Carbon Dioxide 27 20 - 32 [place] mmol/L [facility] Anion Gap 7 3 - 14 [place] mmol/L [facility] Glucose 140 (H) 70 - 99 [place] mg/dL [facility] Urea Nitrogen 6 (L) 7 - 30 [place] mg/dL [facility] Creatinine 0.86 0.52 - [place] 1.04 mg/dL [facility] GFR Estimate 70 >60 [place] mL/min/1.[address] Comment: Non GFR Calc GFR Estimate If Black 85 >60 mL/min/1.7m2 F [facility] Comment: GFR Calc Calcium 8.5 8.5 - 10.1 mg/dL [facility] Bilirubin Total 0.3 0.2 - 1.3 mg/dL [facility] Albumin 3.6 3.4 - 5.0 g/dL [facility] Protein Total 7.2 6.8 - 8.8 g/dL [facility] Alkaline Phosphatase 134 40 - 150 U/L [facility] ALT 43 0 - 50 U/L [facility] AST 35 0 - 45 U/L [facility] Specimen Anatomical Collection Method Collection Time Receive d Time (Source) Location / / Volume Laterality Blood specimen 06/26/2016 9:40 PM 016 9:46 (specimen) WOOD FURNITURE ASSEMBLER PM WOOD FURNITURE ASSEMBLER Rebecca Thompson MD LAB - BLOOD ORDERABLES Performing Organization Address City/[facility]/ZIP [facility] Phon e Number M [facility] [address] [place], [place] [address] [facility] [address] [place] [address] [facility] [phone] Troponin I (06/26/2016 9:40 PM WOOD FURNITURE ASSEMBLER) [facility] NewsBasis Method Time Signature Troponin I ES <0.015 0.000 - [place] The 99th percentile for uppe r reference range is 0.045 ug/L. ??Troponin values in 0.045 [facility] the range of 0.045 - 0.120 ug/L may be associated wit h risks of adverse ug/L HOSPITAL clinical events. Specimen Anatomical Collection Method Collection Time Receive d Time (Source) Location / / Volume Laterality Blood specimen 06/26/2016 9:40 PM 016 9:46 (specimen) WOOD FURNITURE ASSEMBLER PM WOOD FURNITURE ASSEMBLER Rebecca Thompson MD LAB - BLOOD ORDERABLES Performing Organization Address City/State/ZIP Code Phon e Number [place] [address] [address] [place] [address] [facility] [address] [phone] (ABNORMAL) CBC with platelets differential (06/26/2016 9:40 PM WOOD FURNITURE ASSEMBLER) Component Value Ref Test Analysis Performed At [facility] News[employer]asis Range Method Time Signature WBC 11.1 (H) 4.0 - [place] 11.0 [facility] 10e9/L [facility] RBC Count 3.88 3.8 - [place] 5.2 [facility] 10e12/L [facility] Hemoglobin 12.0 11.7 - [place] 15.7 [facility] g/dL [facility] Hematocrit 36.3 35.0 - [place] 47.0 % [facility] MCV 94 78 - 100 [facility] MCH 30.9 26.5 - [place] 33.0 pg [facility] MCHC 33.1 31.5 - [place] 36.5 [facility] g/dL [facility] RDW 12.7 10.0 - [place] 15.0 % [facility] Platelet Count 269 150 - [facility] 450 [facility] 10e9/L [facility] Diff Method Manual [place] Differential [facility] % Neutrophils 51.0 % [facility] % Lymphocytes 42.0 % [facility] % Monocytes 5.0 % [facility] % Eosinophils 1.0 % [facility] % Basophils 1.0 % [facility] Absolute 5.7 1.6 - [place] Neutrophil 8.3 [facility] 10e9/L [facility] Absolute 4.7 0.8 - [place] Lymphocytes 5.3 [place] [id number] Absolute 0.6 0.0 - [place] Monocytes 1.3 [place] [id number] Absolute 0.1 0.0 - [place] Eosinophils 0.7 [place] [id number] [facility] Absolute 0.1 0.0 - [place] Basophils 0.[address] RBC Morphology Consistent with [facility] reported results [facility] Platelet Normal [facility] Estimate [facility] Specimen Anatomical Collection Method Collection Time Receive d Time (Source) Location / / Volume Laterality Blood specimen 06/26/2016 9:40 PM 016 9:46 (specimen) WOOD FURNITURE ASSEMBLER PM WOOD FURNITURE ASSEMBLER Rebecca Thompson MD LAB - BLOOD ORDERABLES Performing Organization Address City/State/ZIP Code Phon e Number [place] [address] [address], [place] [address] [phone] [place] [address] [phone] documented in this encounter Visit Diagnoses Diagnosis Peripheral edema Edema documented in this encounter Active and Recently Administered Medications Care Teams Cupola Liner Relationship Specialty Start Date End Date Harriet Haley MD PCP - General Physician Medical Registrar 10/01/15 [facility] [address] [place] [address] documented as of this encounter
--- OUTSIDE RECORDS SUMMARY | 2022-07-15 06:42 | XMS_ITS | Encounter Summary ---
:1965 Author Organization [facility] Address [address] [place] [address]. [place] [address] Care Team Providers Name Role Phone Harriet Haley MD Primary Care Provider [phone] Reason for Visit Reason Comments Urgent Care Pt c/o urinary pain and frqu ency started this afternoon. Encounter Details Date Type Department Care Team Description 11/13/2017 Office Visit [facility] Kirsten Batista NP Dysuria (Primary Dx); Urgent Care [facility] [address] [place] [address] Nonspecific finding on examination of ur ine; [address] [place], [place] Urinary tract infection with [place] hematuria, [place] [phone] Social History Tobacco Use Types Packs/Day Years [...] Culture Aerobic Bacterial (11/13/2017 8:16 PM CDT) [facility] gist Method Time Signature Specimen Midstream [...] Code Phon e Number INFECTIOUS DISEASES [address] [place] [address] DIAGNOSTIC LABORATORY, [facility] INFECTIOUS DISEASE [address] [place] [address], [facility] DIAGNOSTIC LABORATORY (ABNORMAL) Urine Microscopic (11/13/2017 7:48 PM CDT) athologist Signature WBC Urine 10-25 (A) OTO5^0 - 5 11/13/2017 [facility] /HPF 8:13 PM CDT [facility] Comment: Interfering substances, dipstic k not done RBC Urine O - 2 OTO2^O - 2 11/13/2017 8:13 PM [facility] /HPF CDT [facility] Squamous Epithelial Few FEW^Few /LPF 11/13/2017 8:13 P M [facility] /LPF Urine CDT [facility] Bacteria Urine Moderate (A) NEG^Negative 11/13/2017 8:13 PM [facility] /HPF CDT [facility] Specimen Anatomical Collection Method Collection Time Receive d Time (Source) Location / / Volume Laterality 11/13/2017 7:48 PM 8 7:49 CDT PM CDT Kirsten Batista DIVISION SERVICE MANAGER LAB - URINE ORDERABLES Performing Organization Address City/State/ZIP Code Phon e Number [facility] [address] [place] [address] documented in this encounter Visit Diagnoses Diagnosis Dysuria - Primary Nonspecific finding on examination of ur ine Other nonspecific finding on examination of urine Urinary tract infection without hematuri a, site unspecified documented in this encounter Care Teams Refrigeration Plant Cork Insulator Relationship Specialty Start Date End Date Harriet Haley MD PCP - General Physician Rand Cementer 10/01/15 [facility] [address] [place] [address] documented as of this encounter
--- OUTSIDE RECORDS SUMMARY | 2022-07-15 06:42 | XMS_ITS | Encounter Summary ---
:1965 Author Organization [facility] Address [address] [place] [address]. [place] [address] Care Team Providers Name Role Phone Harriet Haley MD Primary Care Provider [phone] Reason for Visit Reason Comments Urgent Care Pharyngitis Encounter Details Date Type Department Care Team Description 09/28/[address] [facility] CallyBriana Throat p ain (Primary Dx); Urgent Care Shaan Peres MD Influenza-like illness [address] [facility] [address] [address] [phone] Social History Tobacco Use Types Packs/Day Years [...] Comments Blood Pressure 136/78 09/28/2016 2:53 PM RADIATOR SPECIALIST Pulse 97 09/28/2016 2:53 PM RADIATOR SPECIALIST Temperature 36.8 ??C (98.3 ??F) 09/28/2016 2:53 PM RADIATOR SPECIALIST Respiratory Rate 16 09/28/2016 2:53 PM RADIATOR SPECIALIST Oxygen Saturation 97% 09/28/2016 2:53 PM RADIATOR SPECIALIST Inhaled Oxygen Concentration - - Weight 99.8 kg (220 lb) 09/28/2016 2:53 PM RADIATOR SPECIALIST Height 172.7 cm (5' 8) 09/28/2016 2:53 PM RADIATOR SPECIALIST Body Mass Index 33.45 09/28/2016 2:53 PM RADIATOR SPECIALIST documented in this encounter Patient Instructions Patient [...] disease. ?? People who live in a alf or long-term care facility. How Is the [...] Or, clean your hands with an alcohol-based hand??brass cleaner containing at least 60 percent alcohol. [...] and open the door. Using Alcohol-Based Hand Manager [employer] Collections Alcohol-based hand??brush cutter are also a good choice. Use them [...] their hands or use an alcohol-based hand brass cleaner before and after treating each patient. ?? People with the flu have private rooms and bathrooms or share a room with someone with the same infection. ?? High-risk patients who don???t have the flu are encouraged to get the??flu and pneumonia vaccines. ?? All health care workers are encouraged or required to??get flu shots. ? [id number] [employer]. [address] [place] [address], [place] [address]. All rights reserved. This information is not intended as a substitute for professional medical care. Always follow your healthcare professional's instructions. ATOR SPECIALIST documented in this encounter Progress Notes Briana [...] against the influenza virus. note for work ATOR SPECIALIST documented in this encounter Nursing Notes Jennifer [...] encounter: 220 lb (99.8 kg). Medication Reconciliation: jacob Mohan LEAD TECHNOLOGIST IN CYTOGENETICS ATOR SPECIALIST documented in this encounter Plan of Treatment Not on filedocumented as of this encounter Procedures Procedure Name Priority Date/Time Associated Diagnosis Comme nts RAPID STREP SCREEN Routine 09/28/2016 2:58 PM Throat pain Res ults for this THROAT SWAB RADIATOR SPECIALIST procedure are i n the results section. BETA HEMOLYTIC Routine 09/28/2016 2:58 PM Throat pain Results for this STREP GROUP A RADIATOR SPECIALIST procedure are in CULTURE the results section. documented in this encounter Results Beta strep group A culture (09/28/2016 2:58 PM RADIATOR SPECIALIST) Component Value Ref Test Analysis [facility] Range Method Time Signature Specimen Throat [facility] Culture Micro No Beta TAMA Streptococcus [facility] isolated CALL Micro Report FINAL 09/30/2016 [facility] Specimen Anatomical Collection Method Collection Time Receive d Time (Source) Location / / Volume Laterality Specimen from 09/28/2016 2:58 PM 09/28/19 17 2:59 throat RADIATOR SPECIALIST PM RADIATOR SPECIALIST (specimen) Briana Banuelos MD LAB - MICRO GENERAL ORDERABL ES Performing Organization Address City/State/ZIP Code Phon e Number [facility] [address] [place] [address] Strep, Rapid Screen (09/28/2016 2:58 PM RADIATOR SPECIALIST) Component Value Ref Test Analysis Performed At [facility] [employer] Range Method Time Signature Specimen Throat [facility] Rapid Strep A NEGATIVE: No Group A strepto coccal antigen detected by immunoassay, await TAMA Screen culture report. [facility] Micro Report FINAL 09/28/2016 TAMA Status [facility] Specimen Anatomical Collection Method Collection Time Receive d Time (Source) Location / / Volume Laterality Specimen from 09/28/2016 2:58 PM 09/28/19 17 2:59 throat RADIATOR SPECIALIST PM RADIATOR SPECIALIST (specimen) Briana Baneulos MD LAB - MICRO GENERAL ORDERABL ES Performing Organization Address City/State/ZIP Code Phon e Number [facility] [address] [place] [address] documented in this encounter Visit Diagnoses Diagnosis Throat pain - Primary Influenza-like illness Influenza with other respiratory manifes tations documented in this encounter Care Teams Provider Enrollment Specialist Relationship Specialty Start Date End Date Harriet Haley MD PCP - General Physician Experimental Outboard Motors Mechanic 10/01/15 [facility] [address] [place] [address] documented as of this encounter
--- OUTSIDE RECORDS SUMMARY | 2022-07-15 06:42 | XMS_ITS | Encounter Summary ---
:1965 Author Organization [facility] Address [address] [place] [address] Care Team Providers Name Role Phone Harriet Haley MD Primary Care Provider [phone] Reason for Visit Reason Comments Urgent Care Pharyngitis Possible strep Encounter Details Date Type Department Care Team Description 04/26/2017 Office Visit [facility] Liu Gates, Throat pain (Primary Urgent Care Shaan kelly MD Dx) [address] [facility] [address] [place] [address] [phone] Social History Tobacco Use Types Packs/Day Years [...] Component Value Ref Test Analysis Performed At [facility] gist Range Method Time Signature Specimen Throat [facility] Culture Micro No beta 04/27/2017 [facility] hemolytic 11:45 AM CLINICS Streptococcus CDT [place] Group A isolated Specimen Anatomical Collection Method Collection Time Receive d Time (Source) Location / / Volume Laterality Specimen from 04/26/2017 11:40 04/26/2017 throat AM CDT 11:41 AM CDT (specimen) Liu [place] MD LAB - MICRO GENERAL ORDERABL ES Performing Organization Address City/[facility] Code Phon e Number [facility] [address] [place] [address] Strep, Rapid Screen (04/26/2017 11:40 AM CDT) Component Value Ref Test Analysis Performed At [facility] ki work Range Method Time Signature Specimen Throat [facility] Rapid Strep A NEGATIVE: No 04/26/2017 [facility] Screen Group A 11:46 AM CLINICS streptococcal CDT [place] antigen detected by immunoassay, await culture report. Specimen Anatomical Collection Method Collection Time Receive d Time (Source) Location / / Volume Laterality Specimen from 04/26/2017 11:40 04/26/2017 throat AM CDT 11:41 AM CDT (specimen) Liu Gates MD LAB - MICRO GENERAL ORDERABL ES Performing Organization Address City/[facility]/ZIP Code Phon e Number [facility] [address] [facility] [address] documented in this encounter Visit Diagnoses Diagnosis Throat pain - Primary documented in this encounter Care Teams Tunneller Relationship Specialty Start Date End Date Harriet Haley MD PCP - General Physician Marketing Compliance Manager 10/01/15 [facility] [address] [place] [address] documented as of this encounter
--- OUTSIDE RECORDS SUMMARY | 2022-07-15 06:42 | XMS_ITS | Encounter Summary ---
:1965 Author Organization [place] Address [address] [place] [address]. [place] [address] Care Team Providers Name Role Phone Harriet Haley MD Primary Care Provider [phone] Reason for Visit Reason Comments Urgent Care Dysuria Frequency, Urgency, Hesitanc y, Odor, Nuctoria x4, Pelvic pain, back pain, L flank pain x2 days. Encounter Details Date Type Department Care Team Description 05/12/2017 Office Visit [facility] Darshan German, Colleen c ystitis without hematuria (Primary Dx); Urgent Care Shaan kelly PA-C Dysuria [address] [place] [address] [phone] Social History Tobacco Use Types Packs/Day Years [...] Refill: 0 documented in this encounter Nursing Rachna Avitia CMA - 05/12/2017 7:35 PM CDT Images [...] (ABNORMAL) Urine Microscopic (05/12/2017 7:50 PM CDT) [facility] gist Method Time Signature WBC Urine 5-10 (A) OTO2^O - 2 05/12/2017 [facility] /HPF 8:12 PM CDT [facility] RBC Urine 10-25 (A) OTO2^O - 2 05/12/2017 [facility] /HPF 8:12 PM CDT [facility] Squamous Few FEW^Few 05/12/2017 [facility] Epithelial /LPF /LPF 8:12 PM CDT [facility] Bacteria Urine Few (A) NEG^Negati 05/12/2017 [facility] ve /HPF 8:12 PM CDT [facility] Specimen Anatomical Collection Method Collection Time Receive d Time (Source) Location / / Volume Laterality 05/12/2017 7:50 PM 7 7:51 CDT PM CDT Darshan German PA-C LAB - URINE ORDERABLES Performing Organization Address City/State/ZIP Code Phon e Number [facility] [address] [address] documented in this encounter Visit Diagnoses Diagnosis Acute cystitis without hematuria - Prima ry Acute cystitis Dysuria documented in this encounter Care Teams News Agent Relationship Specialty Start Date End Date Harriet Haley MD PCP - General Physician Public Area Supervisor 10/01/15 [facility] [address] [facility] EMERGENCY [place] [address] documented as of this encounter
--- OUTSIDE RECORDS SUMMARY | 2022-07-15 06:42 | XMS_ITS | Encounter Summary ---
:1965 Author Organization [place] Address [address] [place] [address] Care Team Providers Name Role Phone Harriet Haley MD Primary Care Provider [phone] Reason for Visit Reason Onset Date Comments Swelling 06/12/2016 Encounter Details Date Type Department Care Team Description 06/12/2016 Telephone [facility] Sports Magui, Jossy Villaseñor, Swelling Medicine Clinic [place] [facility] [address] [address] [facility] [address] [place] [address] [place] [address] [phone] (Wo rk) Social History Tobacco Use Types [...] to patient. 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 [...] on filedocumented in this encounter Care Teams Silk Soaker Relationship Specialty Start Date End Date Harriet Haley MD PCP - General Physician Napkin Band Wrapper 10/01/15 [address] [place] [address] documented as of this encounter
--- OUTSIDE RECORDS SUMMARY | 2022-07-15 06:42 | XMS_ITS | Encounter Summary ---
:1965 Author Organization [facility] Address [address] [place] [id number] Care Team Providers Name Role Phone Harriet Haley MD Primary Care Provider [phone] Reason for Visit Reason Comments Dizziness Encounter Details Date Type Department Care Team Description 06/28/2022 [facility] Pastor Alvarez MD [facility] [address] [place] [address] Vertigo; Emergency Dept Pastor Og MD [facility] [address] [place] [address] Double vision [address] [place] [address] Social History Tobacco Use Types Packs/Day Years [...] No / Unsu re 06/28/2022 2:12 PM WIRELESS ENGINEER someone who was confirmed or suspected to have Coronavirus/COVID-19? documented as of this encounter Last Filed Vital Signs Vital Sign Reading Time Taken Comments Blood Pressure 133/88 06/28/2022 9:07 PM WIRELESS ENGINEER Pulse 91 06/28/2022 9:07 PM WIRELESS ENGINEER Temperature 36.7 ??C (98 ??F) 06/28/2022 9:07 PM WIRELESS ENGINEER Respiratory Rate 16 06/28/2022 9:07 PM WIRELESS ENGINEER Oxygen Saturation 95% 06/28/2022 9:07 PM WIRELESS ENGINEER Inhaled Oxygen Concentration - - Weight - - Height - - Body Mass Index - - documented in this encounter Discharge Instructions AttachmentsThe following attachments cannot be sent through Care Everywhere. Dizziness (Vertigo) with Medicines, Managing (Nepali)documented in this encounter Medications at Time of Discharge Medication Sig Dispensed Refills Start Date End Date diazepam (VALIUM) 2 MG Take 1 tablet (2 mg) by 2 tablet 0 06/28/2022 tablet mouth every 12 hours as needed (vertigo) meclizine (ANTIVERT) 25 Take 1 tablet (25 mg) 30 tablet 0 1 08/28/2021 MG tablet by mouth 3 times daily as needed for dizziness acetaminophen (TYLENOL) Take 2 tablets (1,000 0 [...] prescribed intentionally due to {CHOOSE REASON BEFORE SIGNING!!!:[id number]} ciprofloxacin (CIPRO) Take 1 tablet (250 mg) 6 tablet 0 250 MG by mouth 2 times daily tabletIndications: Urinary tract infection without hematuria, site unspecified DULoxetine HCl Take 120 mg by mouth 0 (CYMBALTA PO) every evening ibuprofen Take 1 tablet (600 mg) 120 tablet 0 10/03/2015 (ADVIL,MOTRIN) 600 MG by mouth every 8 hours tabletIndications: as needed for other Acute low back pain (mild pain) LEVOTHYROXINE SODIUM PO Take 88 mcg by mouth 0 daily order for Equipment being 1 Units 0 07/06/2016 DMEIndications: Pain of ordered: crutches toe of left foot order for Equipment being 1 Device 0 [...] 4 hours as tablet needed for pain predniSONE (DELTASONE) Take 1 tablet (20 mg) 5 tablet 0 20 MG by mouth daily tabletIndications: Throat pain traMADol (ULTRAM) 50 MG Take 1 tablet (50 mg) 10 tablet 0 1 09/10/2015 tabletIndications: by mouth nightly as Stress fracture of needed for moderate right foot with routine pain healing, subsequent encounter Verapamil HCl (CALAN SR Take 120 mg by mouth 0 PO) every morning documented as of this encounter ED Notes Pastor Og MD - 06/28/2022 8:37 PM CST I took signout on this patient from Dr. Rivera. She has had recurrent episodes of vertigo that sound very peripheral. He treated with a meclizine and Valium which seemed to help. In the work-up he performed an MRI/MRA which was pending. These have returned normal. I discussed the case with neurology who recommended follow-up with ENT and potentially Lyssa's maneuver. Pastor Og MD 06/28/222101 LESS ENGINEER Tomasa Cheney RN - 06/28/2022 8:36 PM CST Walked without issues. States feels better but not great. Able to ambulate to the bathroom and back without assistance. States she is happy that nothing is wrong but tearful and upset I don't want to feel like this all the time. 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 Pulled over and called 911. Currently has double vision with both eyes open and also with left eye closed right eye open .and right eye closed and left open , does where glasses , very nauseas Triage Assessment Row Name 06/28/22 1416 Triage Assessment (Adult) Airway WDL WDL Respiratory WDL Respiratory WDL WDL Skin Circulation/Temperature WDL Skin Circulation/Temperature WDL WDL Cardiac WDL Cardiac WDL WDL Peripheral/Neurovascular WDL Peripheral Neurovascular WDL WDL Cognitive/Neuro/Behavioral WDL Cognitive/Neuro/Behavioral WDL WDL LESS ENGINEER Liane Patel RN - 06/28/2022 2:10 PM CST Bed: ED34 Expected date: Expected time: Means of arrival: Comments: BV 1 - 56 F LESS ENGINEER Pastor Marino MD - 06/28/2022 2:10 PM CST History Chief Complaint: Dizziness The history is provided by the patient. Lizzie He is a 56 year old female with history of vertigo, stroke, tobacco abuse, hypercholesterolemia, sepsis, and hypothyroidism who presents with dizziness. Patient arrives via EMS after she developed dizziness (room spinning), double vision, and nausea while driving after work today. Shepulled over and called 911. As she presents to the ED, she also complains of some kidney pain. She denies any chest pain, ear pain, tinnitus, palpitations, headache, fever, chills, numbness, weakness, or slurred speech. MR Brain without Contrast - 06/25/22 1. ??No acute intracranial process. 2. ??Mild microvascular ischemic changes as detailed above. Review of Systems Constitutional: Negative for chills and fever. HENT: Negative for ear pain and tinnitus. Eyes: Positive for visual disturbance. Cardiovascular: Negative for chest pain and palpitations. Gastrointestinal: Positive for nausea. Genitourinary: Positive for flank pain. Neurological: Positive for dizziness. Negative for speech difficulty, numbness and headaches. All other systems reviewed and are negative. Allergies: Sulfamethoxazole W/Trimethoprim Augmentin Cefuroxime Nitrofurantoin Medications: abilify cipro cymbalta Levothyroxine roxicodone Deltasone Ultram Calan Past Medical History: Fibromyalgia Depression Anxiety Vertigo Cervical radiculopathy Stroke Tobacco abuse Sacroiliitis Ankylosing spondylitis Hypercholesterolemia Hypothyroidism Migraines Esophageal reflux Palpitation Spondyloarthropathy Bacterial pneumonia Sepsis Insomnia Upper GI bleed Acute gastritis Past Surgical History: Abdomen surgery Appendectomy Cervical disc surgery section x2 cholecystectomy Cystoscopy x2 Sling operation for stress incontinence x2 Head and neck surgery Hysterectomy Laparoscopic diagnostic (general), right Left oophorectomy Family History: Father: hypertension, diabetes, vestibular neuritis Mother: hypertension, thyroid problem Social History: PCP: Harriet Haley Presents to the ED alone. 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 Physical Exam Patient Vitals for the past 24 hrs: BP Temp Temp src Pulse Resp SpO2 06/28/22 1510 122/74 -- -- -- -- -- 06/28/22 1503 131/75 -- -- 71 -- 97 % 06/28/22 1448 (!) 139/90 -- -- 73 -- 96 % 06/28/22 1442 129/82 -- -- 73 -- 98 % 06/28/22 1433 (!) 161/104 -- -- 80 -- 98 % 06/28/22 1418 (!) 142/80 -- -- 75 -- 98 % 06/28/22 1413 (!) 150/87 98.4 ??F (36.9 ??C) Oral 75 18 97 % Physical Exam General: Patient is awake, alert and interactive when I enter the room Head: The scalp, face, and head appear normal Eyes: The pupils are equal, round, and reactive to light. Conjunctivae and sclerae are normal. Bilateral horizontal nystagmus. Full ROM of both eyes and appears symmetric without obvious palsy. ENT: External acoustic canals are normal. The oropharynx is normal without erythema. Uvula is in themidline. TMs clear bilaterally Neck: Normal range of motion. CV: Regular rate. S1/S2. No murmurs. Resp: Lungs are clear without wheezes or rales. No respiratory distress. GI: Abdomen is soft, no rigidity, guarding, or rebound. No distension. No tenderness to palpation inany quadrant. MS: Normal tone. Joints grossly normal without effusions. No asymmetric leg swelling, calf or thigh tenderness. Skin: No rash or lesions noted. Normal capillary refill noted Neuro: Speech is normal and fluent. Face is symmetric without droop. CN's II-XII intact. Negative pronator drift. Finger to nose intact.Heel to zuleta intact. Normal rapid hand movement and coordination Right Arm: Good boat painter strength. 5/5 elbow flexion. 5/5 elbow extension. Sensation intact to light touch. Left Arm: Good boat painter strength. 5/5 elbow flexion. 5/5 elbow extension. Sensation intact to light touch. Right Le/5 straight leg raise, 5/5 knee flexion, 5/5 knee extension, 5/5 dorsiflexion, 5/5 plantar flexion. Sensation intact to light touch. Left Le/5 straight leg raise, 5/5 knee flexion, 5/5 knee extension, 5/5 dorsiflexion, 5/5 plantar flexion. Sensation intact to light touch. Psych: Normal affect. Appropriate interactions. Emergency Department Course ECG ECG taken at 1439, ECG read at 1440 Normal sinus rhythm. Low voltage QRS. No significant change as compared to prior, dated 06/26/16. Rate 72 bpm. AL interval 204 ms. QRS duration 88 ms. QT/QTc 392/429 ms. P-R-T axes 63 -3 36. Imaging: MR Brain w/o Contrast (Results Pending) MRA Neck (Carotids) wo Contrast (Results Pending) MRA Brain ([place]) wo Contrast (Results Pending) Report per radiology Laboratory: Labs Ordered and Resulted from Time of ED Arrival to Time of ED Departure BASIC METABOLIC PANEL - Abnormal Result Value Sodium 135 (*) Potassium 3.9 Chloride 97 (*) Carbon Dioxide (CO2) 28 Anion Gap 10 Urea Nitrogen 16.1 Creatinine 0.96 (*) Calcium 9.4 Glucose 93 GFR Estimate 69 DRUG ABUSE SCREEN 1 URINE (ED) - Abnormal Amphetamines Urine Screen Negative Barbituates Urine Screen Negative Benzodiazepine Urine Screen Positive (*) Cannabinoids Urine Screen Negative Cocaine Urine Screen Negative Opiates Urine Screen Negative TROPONIN T, HIGH SENSITIVITY - Normal Troponin T, High Sensitivity 6 ROUTINE UA WITH MICROSCOPIC REFLEX TO CULTURE - Normal Color Urine Straw Appearance Urine Clear Glucose Urine Negative Bilirubin Urine Negative Ketones Urine Negative Specific Hood Urine 1.007 Blood Urine Negative pH Urine 5.5 Protein Albumin Urine Negative Urobilinogen Urine Normal Nitrite Urine Negative Leukocyte Esterase Urine Negative RBC Urine <1 WBC Urine 1 Squamous Epithelials Urine <1 CBC WITH PLATELETS AND DIFFERENTIAL WBC Count 9.0 RBC Count 4.44 Hemoglobin 13.6 Hematocrit 41.4 MCV 93 MCH 30.6 MCHC 32.9 RDW 12.7 Platelet Count 297 % Neutrophils 54 % Lymphocytes 35 % Monocytes 7 % Eosinophils 3 % Basophils 1 % Immature Granulocytes 0 NRBCs per 100 WBC 0 Absolute Neutrophils 4.8 Absolute Lymphocytes 3.2 Absolute Monocytes 0.6 Absolute Eosinophils 0.3 Absolute Basophils 0.1 Absolute Immature Granulocytes 0.0 Absolute NRBCs 0.0 Emergency Department Course: Reviewed: I reviewed nursing notes, vitals, past medical history and Care Everywhere Interventions: Medications diazepam (VALIUM) tablet 2 mg (has no administration in time range) ondansetron (ZOFRAN) injection 4 mg (4 mg Intravenous Given 06/28/22 1501) predniSONE (DELTASONE) tablet 60 mg (60 mg Oral Given 06/28/22 1522) Disposition: Signed out to Dr. Og pending MRI results Impression & Plan Medical Decision Making: Lizzie He is a 56 year old female with history of vertigo, stroke, tobacco abuse, hypercholesterolemia, sepsis, and hypothyroidism who presents with dizziness and double vision. In review of the patient's chart she was seen previously at [facility] and 06/25/2022 for similar symptomatology. MRI was performed which did not show any acute signs of infarction, mass or hemorrhage. Patient felt better after treatment with meclizine and ultimately was discharged home. Today she noted recurrence of her dizziness but also some double vision prompting her visit to the emergency department. Upon initial evaluation here she is hemodynamically stable with normal vital signs. She is afebrile. She is oxygenating well on room air. Physical exam detailed above. Patient has evidence of bilateral horizontal nystagmus and exhibits significant symptomatic dizziness with any movement of her head. However she does not have any coordination issues or evidence of neurological deficits. Although she had negative MRI 3 days ago I am still concerned about the possibility of posterior stroke but also vascular insult could be causing her significant dizziness. Therefore MRI and MRAs will be obtained to further rule out significant pathology. This is pending at the time of note writing. My partner will follow up on these images and reevaluate patient at that time. Patient was treated with the aforementioned interventions. No signs of significant cardiac etiology. In regards to her diplopia that does not appear to be any 3rd or 6th nerve palsy furthermore there is no significant pain with extraocular movements to suggest infectious or inflammatory pathology. No significant headache or fever. Low concernfor meningitis, septal orbital cellulitis deep sinus abscess or infection. Diagnosis: ICD-10-CM 1. Vertigo R42 2. Double vision H53.2 Scribe Disclosure: I, Thom Eckert, am serving as a scribe at 2:17 PM on 06/28/2022 to document services personally performed by Pastor Marino MD based on my observations and the provider's statements carolin. Pastor Marino MD 06/28/22 1649 Pastor Marino MD 06/28/22 1652 LESS ENGINEER documented in this encounter Plan of Treatment Not on filedocumented as of this encounter Procedures Procedure Name Priority Date/Time Associated Comments Diagnosis MRA NECK (CAROTIDS) STAT 06/28/2022 5:49 PM Re sults for this W/O CONTRAST WIRELESS ENGINEER procedure are i n the results section. MR BRAIN W/O CONTRAST STAT 06/28/2022 5:41 PM Results for this WIRELESS ENGINEER procedure are i n the results section. MRA BRAIN ([place] OF STAT 06/28/2022 5:41 PM R esults for this [place]) W/O CONTRAST WIRELESS ENGINEER procedu re are in the results section. URINE DRUGS OF ABUSE STAT 06/28/2022 3:56 PM R esults for this SCREEN WIRELESS ENGINEER procedure are i n the results section. ROUTINE UA WITH STAT 06/28/2022 3:56 PM Result s for this MICROSCOPIC REFLEX TO WIRELESS ENGINEER proced ure are in CULTURE the results section. DRUG ABUSE SCREEN 1 STAT 06/28/2022 3:56 PM Re sults for this URINE (ED) WIRELESS ENGINEER procedure are i n the results section. CBC WITH PLATELETS STAT 06/28/2022 2:40 PM Res ults for this AND DIFFERENTIAL WIRELESS ENGINEER procedure a re in the results section. TROPONIN T, HIGH STAT 06/28/2022 2:40 PM Resul ts for this SENSITIVITY WIRELESS ENGINEER procedure are i n the results section. CBC WITH PLATELETS & STAT 06/28/2022 2:40 PM R esults for this DIFFERENTIAL WIRELESS ENGINEER procedure are i n the results section. BASIC METABOLIC PANEL STAT 06/28/2022 2:40 PM Results for this WIRELESS ENGINEER procedure are i n the results section. EKG 12-LEAD, TRACING STAT 06/28/2022 2:39 PM R esults for this ONLY WIRELESS ENGINEER procedure are i n the results section. documented in this encounter Results MRA Neck (Carotids) wo Contrast (06/28/2022 5:49 PM WIRELESS ENGINEER) Anatomical Region Laterality Modality Neck, Vascular, C-spine, SUBRAD MR NEURO, UMP MR NEURO, Magnetic Resonance RAD MR Specimen (Source) Anatomical Collection Method Collection Time Re ceived Time Location / / Volume Laterality 06/28/2022 5:49 PM WIRELESS ENGINEER Impressions 06/28/2022 5:56 PM WIRELESS ENGINEER IMPRESSION: 1. ??Normal neck MRA. Narrative 06/28/2022 5:56 PM WIRELESS ENGINEER EXAM: MRA NECK (CAROTIDS) W/O CONTRAST LOCATION: [facility] DATE/TIME: 06/28/2022 5:49 PM INDICATION: double vision [...] EXAM: MRA NECK (CAROTIDS) W/O CONTRAST LOCATION: [facility] DATE/TIME: 06/28/2022 5:49 PM INDICATION: double vision [...] MR Brain w/o Contrast (06/28/2022 5:41 PM WIRELESS ENGINEER) Anatomical Region Laterality Modality Head, SUBRAD MR NEURO, UMP MR NEURO, RAD MR Magnetic Resonance Specimen (Source) Anatomical Collection Method Collection Time Re ceived Time Location / / Volume Laterality 06/28/2022 5:41 PM WIRELESS ENGINEER Impressions 06/28/2022 5:52 PM WIRELESS ENGINEER IMPRESSION: HEAD MRI: 1. ??No acute intracranial process. 2. ??Generalized brain atrophy and presu med microvascular ischemic changes as detailed above. HEAD MRA: 1. ??Normal MRA [place]. Narrative 06/28/2022 5:52 PM WIRELESS ENGINEER EXAM: MR BRAIN W/O CONTRAST, MRA BRAIN ([place]) W/O CONTRAST LOCATION: [facility] DATE/TIME: 06/28/2022 5:41 PM INDICATION: double vision and dizziness COMPARISON: MRI head 06/25/2022 and CTA head neck 10/09/2019 TECHNIQUE: 1) Routine multiplanar multisequence hea d MRI without intravenous contrast. 2) 3D [id number] head MRA without in travenous contrast. FINDINGS: HEAD MRI: INTRACRANIAL CONTENTS: No acute or subac [place] infarct. No mass, acute hemorrhage, or extra-axial [...] MR BRAIN W/O CONTRAST, MRA BRAIN ( [place]) W/O CONTRAST LOCATION: [facility] DATE/TIME: 06/28/2022 5:41 PM INDICATION: double vision and dizziness COMPARISON: MRI head 06/25/2022 and CTA head neck 10/09/2019 TECHNIQUE: 1) Routine multiplanar multisequence hea d MRI without intravenous contrast. 2) 3D [id number] head MRA without in travenous contrast. FINDINGS: HEAD MRI: INTRACRANIAL CONTENTS: No acute or subac [place] infarct. No mass, acute hemorrhage, or extra-axial [...] detailed above. HEAD MRA: 1. Normal MRA [place]. Pastor Marino MD [facility] MRI ORDERABLES MRA Brain ([place]) wo Contrast (06/28/2022 5:41 PM WIRELESS ENGINEER) Anatomical Region Laterality Modality Head, SUBRAD MR NEURO, UMP MR NEURO, RAD MR Magnetic Resonance Specimen (Source) Anatomical Collection Method Collection Time Re ceived Time Location / / Volume Laterality 06/28/2022 5:41 PM WIRELESS ENGINEER Impressions 06/28/2022 5:52 PM WIRELESS ENGINEER IMPRESSION: HEAD MRI: 1. ??No acute intracranial process. 2. ??Generalized brain atrophy and presu med microvascular ischemic changes as detailed above. HEAD MRA: 1. ??Normal MRA [place]. Narrative 06/28/2022 5:52 PM WIRELESS ENGINEER EXAM: MR BRAIN W/O CONTRAST, MRA BRAIN ([place]) W/O CONTRAST LOCATION: [facility] DATE/TIME: 06/28/2022 5:41 PM INDICATION: double vision and dizziness COMPARISON: MRI head 06/25/2022 and CTA head neck 10/09/2019 TECHNIQUE: 1) Routine multiplanar multisequence hea d MRI without intravenous contrast. 2) 3D [id number]-er-[id number] head MRA without in travenous contrast. FINDINGS: HEAD MRI: INTRACRANIAL CONTENTS: No acute or subac [place] infarct. No mass, acute hemorrhage, or extra-axial [...] MR BRAIN W/O CONTRAST, MRA BRAIN ( [place]) W/O CONTRAST LOCATION: [facility] DATE/TIME: 06/28/2022 5:41 PM INDICATION: double vision and dizziness COMPARISON: MRI head 06/25/2022 and CTA head neck 10/09/2019 TECHNIQUE: 1) Routine multiplanar multisequence hea d MRI without intravenous contrast. 2) 3D [id number] head MRA without in travenous contrast. FINDINGS: HEAD MRI: INTRACRANIAL CONTENTS: No acute or subac [place] infarct. No mass, acute hemorrhage, or extra-axial [...] detailed above. HEAD MRA: 1. Normal MRA [place]. Pastor Marino MD IMG MRI ORDERABLES (ABNORMAL) Drug abuse screen 1 urine (ED) (06/28/2022 3:56 PM WIRELESS ENGINEER) [facility] Method Time Signature Amphetamines Screen Screen 06/28/2022 [facility] Urine Negative Negative 4:34 PM WIRELESS ENGINEER Comment: Cutoff for a negative amphetami ne is less than 500 ng/mL. Barbituates Urine Screen Negative Screen Negative 06/28/20 22 4:34 LABORATORY PM WIRELESS ENGINEER Comment: Cutoff for a negative barbitura te is less than 200 ng/mL. Benzodiazepine Urine Screen Positive Screen Negative 06/28 4:34 LABORATORY (A) PM WIRELESS ENGINEER Comment: Cutoff for a positive benzodiazepine is 100 ng/mL or greater. This is an unconfirmed screening result to be used for medical purposes only. Cannabinoids Urine Screen Negative Screen Negative 022 4:34 [facility] PM WIRELESS ENGINEER Comment: Cutoff for a negative cannabino id is less than 50 ng/mL. Cocaine Urine Screen Negative Screen Negative 06/28/2022 4:3 4 PM [facility] WIRELESS ENGINEER Comment: Cutoff for a negative cocaine i s less than 300 ng/mL. Opiates Urine Screen Negative Screen Negative 06/28/2022 4:3 4 PM [facility] WIRELESS ENGINEER Comment: Cutoff for a negative opiate is less than 300 ng/mL. Specimen Anatomical Collection Method Collection Time Receive d Time (Source) Location / / Volume Laterality Urine MID-STREAM URINE Non-blood 06/28/2022 3:56 PM 06/28 4:00 SPECIMEN / Unknown Collection / WIRELESS ENGINEER PM WIRELESS ENGINEER Unknown Pastor Marino MD LAB - URINE ORDERABLES Performing Organization Address City/State/ZIP Code Phon [place] [id number] [facility] [address] Lab (1st floor, no room number) UA with Microscopic reflex to Culture (06/28/2022 3:56 PM WIRELESS ENGINEER) [facility] Method Time Signature Color Urine Straw Colorless, 06/28/2022 LABORATORY Straw, Light 4:17 PM WIRELESS ENGINEER Yellow, Yellow Appearance Urine Clear Clear 06/28/2022 LABORATOR Y 4:17 PM WIRELESS ENGINEER Glucose Urine Negative Negative 06/28/2022 LABORATORY mg/dL 4:17 PM WIRELESS ENGINEER Bilirubin Urine Negative Negative 06/28/2022 LABORATORY 4:17 PM WIRELESS ENGINEER Ketones Urine Negative Negative 06/28/2022 LABORATORY mg/dL 4:17 PM WIRELESS ENGINEER Specific Hood 1.007 1.003 - 06/28/2022 LABORATOR Y Urine 1.035 4:17 PM WIRELESS ENGINEER Blood Urine Negative Negative 06/28/2022 LABORATORY 4:17 PM WIRELESS ENGINEER pH Urine 5.5 5.0 - 7.0 06/28/2022 LABORATORY 4:17 PM WIRELESS ENGINEER Protein Albumin Negative Negative 06/28/2022 LABORATORY Urine mg/dL 4:17 PM WIRELESS ENGINEER Urobilinogen Normal Normal, 2.0 06/28/2022 LABORATORY Urine mg/dL 4:17 PM WIRELESS ENGINEER Nitrite Urine Negative Negative 06/28/2022 LABORATORY 4:17 PM WIRELESS ENGINEER Leukocyte Negative Negative 06/28/2022 LABORATORY Esterase Urine 4:17 PM WIRELESS ENGINEER RBC Urine <1 <=2 /HPF 06/28/2022 [facility] 4:17 PM WIRELESS ENGINEER WBC Urine 1 <=5 /HPF 06/28/2022 [facility] 4:17 PM WIRELESS ENGINEER Squamous <1 <=1 /HPF 06/28/2022 LABORATORY Epithelials 4:17 PM WIRELESS ENGINEER Urine Specimen Anatomical Collection Method Collection Time Receive d Time (Source) Location / / Volume Laterality Urine MID-STREAM URINE Non-blood 06/28/2022 3:56 PM 06/28 4:00 SPECIMEN / Unknown Collection / WIRELESS ENGINEER PM WIRELESS ENGINEER Unknown Narrative [facility] - 06/28/2022 4:17 PM WIRELESS ENGINEER Urine Culture not indicated Pastor Marino MD LAB - URINE ORDERABLES Performing Organization Address City/State/ZIP Code [place] [address] Lab (1st floor, no room number) CBC with platelets and differential (06/28/2022 2:40 PM WIRELESS ENGINEER) Analysis Performed At Patho logist Time Signature WBC Count 9.0 4.0 - 11.0 06/28/2022 [facility] 10e3/uL 2:55 PM WIRELESS ENGINEER RBC Count 4.44 3.80 - 06/28/2022 [facility] 5.20 2:55 PM WIRELESS ENGINEER 10e6/uL Hemoglobin 13.6 11.7 - 06/28/2022 [facility] 15.7 g/dL 2:55 PM WIRELESS ENGINEER Hematocrit 41.4 35.0 - 06/28/2022 [facility] 47.0 % 2:55 PM WIRELESS ENGINEER MCV 93 78 - 100 06/28/2022 [facility] fL 2:55 PM WIRELESS ENGINEER MCH 30.6 26.5 - 06/28/2022 [facility] 33.0 pg 2:55 PM WIRELESS ENGINEER MCHC 32.9 31.5 - 06/28/2022 [facility] 36.5 g/dL 2:55 PM WIRELESS ENGINEER RDW 12.7 10.0 - 06/28/2022 [facility] 15.0 % 2:55 PM WIRELESS ENGINEER Platelet Count 297 150 - 450 06/28/2022 [facility] 10e3/uL 2:55 PM WIRELESS ENGINEER % Neutrophils 54 % 06/28/2022 [facility] 2:55 PM WIRELESS ENGINEER % Lymphocytes 35 % 06/28/2022 [facility] 2:55 PM WIRELESS ENGINEER % Monocytes 7 % 06/28/2022 [facility] 2:55 PM WIRELESS ENGINEER % Eosinophils 3 % 06/28/2022 [facility] 2:55 PM WIRELESS ENGINEER % Basophils 1 % 06/28/2022 [facility] 2:55 PM WIRELESS ENGINEER % Immature 0 % 06/28/2022 [facility] LABORATORY Granulocytes 2:55 PM WIRELESS ENGINEER NRBCs per 100 WBC 0 <1 /100 06/28/2022 RH LABORATO RY 2:55 PM WIRELESS ENGINEER Absolute 4.8 1.6 - 8.3 06/28/2022 [facility] LABORATORY Neutrophils 10e3/uL 2:55 PM WIRELESS ENGINEER Absolute 3.2 0.8 - 5.3 06/28/2022 [facility] LABORATORY Lymphocytes 10e3/uL 2:55 PM WIRELESS ENGINEER Absolute 0.6 0.0 - 1.3 06/28/2022 [facility] LABORATORY Monocytes 10e3/uL 2:55 PM WIRELESS ENGINEER Absolute 0.3 0.0 - 0.7 06/28/2022 [facility] LABORATORY Eosinophils 10e3/uL 2:55 PM WIRELESS ENGINEER Absolute 0.1 0.0 - 0.2 06/28/2022 [facility] LABORATORY Basophils 10e3/uL 2:55 PM WIRELESS ENGINEER Absolute Immature 0.0 <=0.4 06/28/2022 RH LABORATO RY Granulocytes 10e3/uL 2:55 PM WIRELESS ENGINEER Absolute NRBCs 0.0 10e3/uL 06/28/2022 [facility] LABORATORY 2:55 PM WIRELESS ENGINEER Specimen Anatomical Collection Method / Collection Time Recei aide Time (Source) Location / Volume Laterality Blood STRUCTURE OF RIGHT Venipuncture / 06/28/2022 2:40 06/10 2:52 UPPER LIMB / Unknown PM WIRELESS ENGINEER PM WIRELESS ENGINEER Unknown Pastor Marino MD LAB - BLOOD ORDERABLES Performing Organization Address City/State/ZIP Code [place] [phone] Lab (1st floor, no room number) Troponin T, High Sensitivity (06/28/2022 2:40 PM WIRELESS ENGINEER) P athologist Signature Troponin T, High 6 <=14 ng/L 06/28/2022 RH LABORATOR Y Sensitivity 3:19 PM WIRELESS ENGINEER Comment: Either a High Sensitivity Troponin [...] 06/10 2:52 UPPER LIMB / Unknown PM WIRELESS ENGINEER PM WIRELESS ENGINEER Unknown Pastor Marino MD LAB - BLOOD ORDERABLES Performing Organization Address City/State/ZIP Code Phon [place] [address] Lab (1st floor, no room number) (ABNORMAL) Basic metabolic panel (06/28/2022 2:40 PM WIRELESS ENGINEER) P athologist Signature Sodium 135 (L) 136 - 145 06/28/2022 LABORATORY mmol/L 3:25 PM WIRELESS ENGINEER Potassium 3.9 3.4 - 5.3 06/28/2022 LABORATORY mmol/L 3:25 PM WIRELESS ENGINEER Comment: Specimen slightly hemolyzed, po tassium may be falsely elevated. Chloride 97 (L) 98 - 107 mmol/L 06/28/2022 3:25 PM RH LA BORATORY WIRELESS ENGINEER Carbon Dioxide (CO2) 28 22 - 29 mmol/L 06/28/2022 3:2 5 PM RH LABORATORY WIRELESS ENGINEER Anion Gap 10 7 - 15 mmol/L 06/28/2022 3:25 PM RH LABO RATORY WIRELESS ENGINEER Urea Nitrogen 16.1 6.0 - 20.0 mg/dL 06/28/2022 3:25 PM RH LABORATORY WIRELESS ENGINEER Creatinine 0.96 (H) 0.51 - 0.95 mg/dL 06/28/2022 3:25 PM RH LABORATORY WIRELESS ENGINEER Calcium 9.4 8.6 - 10.0 mg/dL 06/28/2022 3:25 PM RH L ABORATORY WIRELESS ENGINEER Glucose 93 70 - 99 mg/dL 06/28/2022 3:25 PM RH LABO RATORY WIRELESS ENGINEER GFR Estimate 69 >60 mL/min/1.73m2 06/28/2022 3:25 PM RH LABORATORY WIRELESS ENGINEER Comment: Effective July 30, 2021 eGF Rcr in adults is calculated using the 2020 CKD-EPI creatinine equation which includ es age and gender (Heather et al., NEJM, DOI: 10.1056/DXSKuh7641322) Specimen Anatomical Collection Method / Collection Time Recei aide Time (Source) Location / Volume Laterality Blood STRUCTURE OF RIGHT Venipuncture / 06/28/2022 2:40 06/10 2:52 UPPER LIMB / Unknown PM WIRELESS ENGINEER PM WIRELESS ENGINEER Unknown Pastor Marino MD LAB - BLOOD ORDERABLES Performing Organization Address City/State/ZIP Code [place] [address] Lab (1st floor, no room number) EKG 12-lead, tracing only (06/28/2022 2:39 PM WIRELESS ENGINEER) [facility] gist Method Time Signature Systolic Blood mmHg RADIOLOGY Pressure RESULTS Diastolic Blood mmHg RADIOLOGY Pressure RESULTS Ventricular Rate 72 BPM RADIOLOGY RESULTS Atrial Rate 72 BPM RADIOLOGY RESULTS AL Interval 204 ms RADIOLOGY RESULTS QRS Duration 88 ms RADIOLOGY RESULTS QT 392 ms RADIOLOGY RESULTS QTc 429 ms RADIOLOGY RESULTS P [place] 63 degrees RADIOLOGY RESULTS R AXIS -3 degrees RADIOLOGY RESULTS T [place] 36 degrees RADIOLOGY RESULTS Interpretation Sinus rhythm RADIOLOGY ECG Low voltage QRS RESULTS Borderline ECG When compared with ECG of 26-JUN-2016 21:57, QT has shortened Confirmed by - EMERGENCY YOKASTA Palmer PHYSICIAN ([id number]), managing editor MISAEL CORDON ([id number]) on 06/30/2022 6:38:32 AM Specimen Anatomical Collection Method Collection Time Receive d Time (Source) Location / / Volume Laterality 06/28/2022 2:39 PM 2 6:38 WIRELESS ENGINEER AM WIRELESS ENGINEER Pastor Marino MD ECG ORDERABLES Performing Organization Address City/State/ZIP Code Phon e Number RADIOLOGY RESULTS documented in this encounter Visit Diagnoses Diagnosis Vertigo Dizziness and giddiness Double vision Diplopia documented in this encounter Administered Medications Inactive Administered Medications - up to 3 most recent administrations Medication Order MAR Action Action Date Dose Rate Site diazepam (VALIUM) tablet 2 mg Given 06/28/2022 4:50 PM WIRELESS ENGINEER 2 mg 2 mg, Oral, ONCE, On 06/28/22 at 1440, For 1 dose ondansetron (ZOFRAN) injection 4 mg Given 06/28/2022 3:01 PM WIRELESS ENGINEER 4 mg 4 mg, Intravenous, EVERY 30 MIN PRN, nausea, vomiting, Administer over 2-5 Minutes, Starting on 06/28/22 at 1434, For 3 doses, May repeat in 30 minutes as needed, up to 3 doses. Irritant. predniSONE (DELTASONE) tablet 60 mg Given 06/28/2022 3:22 PM WIRELESS ENGINEER 60 mg 60 mg, Oral, ONCE, On 06/28/22 at 1440, For 1 dose documented in this encounter Active and Recently Administered Medications Times are shown in WIRELESS ENGINEER. Scheduled Medication Order 06/26/2022 06/27/2022 06/28/2022 diazepam (VALIUM) tablet 2 mg (COMPLETED) 1650 (Given - Provider: Rianna Jameson RN - Comment: pre-MRI) 2 mg, Oral, ONCE, On 06/28/22 at 1440, For 1 dose predniSONE (DELTASONE) tablet 60 mg (COMPLETED) 1522 (Given - Provider: Mone Burdick RN) 60 mg, Oral, ONCE, On 06/28/22 at 1440, For 1 dose PRN Medication Order 06/26/2022 06/27/2022 06/28/2022 ondansetron (ZOFRAN) injection 4 mg 1501 (Given - Provider: Mone Burdick RN) 4 mg, Intravenous, EVERY 30 MIN PRN, maria ines sea, vomiting, Administer over 2-5 Minutes, Starting on 06/28/22 at 1434, For 3 doses, May repeat in 30 minutes as needed, up to 3 doses. Irritant. documented in this encounter Care Teams Lease Purchase Truck Driver Relationship Specialty Start Date End Date Harriet Haley MD PCP - General Physician Rn Transplant 10/01/15 [facility] [address] [place] [address] documented as of this encounter
--- OUTSIDE RECORDS SUMMARY | 2022-07-15 06:42 | XMS_ITS | Encounter Summary ---
:1965 Author Organization [place] Address [address] [place] [address] Care Team Providers Name Role Phone Harriet Haley MD Primary Care Provider [phone] Reason for Visit Reason Comments RECHECK Encounter Details Date Type Department Care Team Description 07/08/2016 Office Visit [facility] Jossy Kil[address]ore [address] ress fracture of Sports Medicine DO [facility]al [facility] [place] [address] [facility] routine healing [phone] [facility] (Primary Dx) [place] [address] [address] [place], [place] [address] (Wo rk) Social History [...] Comments Blood Pressure 146/80 07/08/2016 11:03 AM PRODUCTION ADMINISTRATIVE ASSISTANT Pulse 101 07/08/2016 11:03 AM PRODUCTION ADMINISTRATIVE ASSISTANT Temperature - - Respiratory Rate - - Oxygen Saturation - - Inhaled Oxygen Concentration - - Weight 99.8 kg (220 lb) 07/08/2016 11:03 AM PRODUCTION ADMINISTRATIVE ASSISTANT Height 172.7 cm (5' 8) 07/08/2016 11:03 AM PRODUCTION ADMINISTRATIVE ASSISTANT Body Mass Index 33.45 07/08/2016 11:03 AM PRODUCTION ADMINISTRATIVE ASSISTANT documented in this encounter Patient Instructions Patient [...] (sooner if needed; call direct clinic number [[phone]] at any time with questions or concerns) Jossy Kilgore DO CAQSM [facility] UCTION ADMINISTRATIVE ASSISTANT documented in this encounter Progress Notes Jossy Kilgore DO - 07/08/2016 11:04 AM CST [facility] Visit Jul [...] care who took xrays (see below), prescribed [place] and gave her crutches. She used the crutches until she got home. They indicate that their pain level is 6/10. They have tried CAM chaz Long (from Urgent Care). Patient's past medical, surgical, [...] been compliant in the boot x4 weeks. folding machine tender on palpation. Continue with boot as [...] in 4 weeks. Call direct clinic number [phone] at any time with questions or concerns.Instructed to call the office if the condition evolves or worsens. Patient's conditions were thoroughly discussed during today's visit with greater than 50% of the visit spent counseling the patient with total time spent [id number] with the patient being 25 minutes. Jossy Kilgore DO [facility] UCTION ADMINISTRATIVE ASSISTANT documented in this encounter Nursing Notes Carlos [...] (99.791 kg). BP completed using cuff size: large Carlos Roth ATC UCTION ADMINISTRATIVE ASSISTANT documented in this encounter Plan of Treatment Not on filedocumented as of this encounter Visit Diagnoses Diagnosis Stress fracture of metatarsal bone of le ft foot with routine healing - Primary documented in this encounter Care Teams Specialty Therapist Relationship Specialty Start Date End Date Harriet Haley MD PCP - General Physician Medical Office Asst 10/01/15 [facility] [address] [facility] [place] [address] documented as of this encounter
--- OUTSIDE RECORDS SUMMARY | 2022-07-15 06:42 | XMS_ITS | Encounter Summary ---
:1965 Author Organization [place] Address [address] [place] [address] Care Team Providers Name Role Phone Harriet Haley MD Primary Care Provider [phone] Encounter Details Date Type Department Care Team Description 05/08/2016 Radiant Appointment [facility] Karlie Gates n of left [facility] [place] MD Liu extremity [address] [address] [place] [phone] [place] [address] Social History Tobacco Use Types Packs/Day [...] extremity documented in this encounter Care Teams Vice President Corporate Communications Relationship Specialty Start Date End Date Harriet Haley MD PCP - General Physician Java Core Developer 10/01/15 [facility] [address] [facility] [place] [address] documented as of this encounter
--- OUTSIDE RECORDS SUMMARY | 2022-07-15 06:42 | XMS_ITS | Encounter Summary ---
:1965 Author Organization [place] Address [address] [place] [address] Care Team Providers Name Role Phone Harriet Haley MD Primary Care Provider [phone] Encounter Details Date Type Department Care Team Description 07/06/[address] [facility] Karlie Gates n of toe of left Clinic [place] foot [address] [address] [facility] [phone] [place] [address] Social History Tobacco Use Types Packs/Day [...] toe of left Results for this VIEWS CREDIT REVIEW MANAGER foot procedure are i n the results section. documented in this encounter Results XR Foot Left G/E 3 Views (07/06/2016 10:55 AM CREDIT REVIEW MANAGER) Anatomical Region Laterality Modality Foot, Ankle Left Computed Radiography Specimen (Source) Anatomical Location Collection Method / Collectio n Time Received Time / Laterality Volume Impressions 07/06/2016 12:08 PM CREDIT REVIEW MANAGER IMPRESSION: Bones are normally aligned. Moderate inferior calcaneal heel spur. No acute fracture. KANA ORNELAS MD Narrative 07/06/2016 12:08 PM CREDIT REVIEW MANAGER LEFT FOOT THREE OR MORE VIEWS ??07/06/2016 [...] limb documented in this encounter Care Teams Director Of Digital Marketing Relationship Specialty Start Date End Date Harriet Haley MD PCP - General Physician Fisher Weir 10/01/15 [facility] [address] [place] [address] documented as of this encounter
--- OUTSIDE RECORDS SUMMARY | 2022-07-15 06:42 | XMS_ITS | Encounter Summary ---
:1965 Author Organization [place] Address [address] [place] [address] Care Team Providers Name Role Phone Harriet Haley MD Primary Care Provider [phone] Encounter Details Date Type Department Care Team Description 06/09/2016 Radiant Appointment [facility] Jossy Kilgore tress fracture of Sports and Charleen, DO metatarsal bone of Orthopedic Care [facility] left foot with [facility] routine healing [address] [place] [address] [phone] Social History Tobacco Use Types Packs/Day Years [...] healing documented in this encounter Care Teams Heating And Ventilating Worker Relationship Specialty Start Date End Date Harriet Haley MD PCP - General Physician Aircraft Accessories Mechanic 10/01/15 [facility] [address] [facility] [place] [address] documented as of this encounter
--- OUTSIDE RECORDS SUMMARY | 2022-07-15 06:43 | XMS_ITS | Encounter Summary ---
:1965 Author Organization [place] Address [address] [place] [address] Care Team Providers Name Role Phone Harriet Haley MD Primary Care Provider [phone] Reason for Visit Reason Onset Date Comments Procedure 2015 LESI Encounter Details Date Type Department Care Team Description 2015 Telephone [facility] Pain Pain Management Pr ocedure (LESI) Management [address] [place], [place] [id number] Social History Tobacco Use Types Packs/Day Years Used Date Smoking Tobacco: Former Cigarettes Quit : 09/15/2015 Alcohol Use Standard Drinks/Week Comments Yes 0 (1 standard drink = 0.6 oz pure alcoho l) SMALL Sex Assigned at Date Recorded Not on file documented as of this encounter Miscellaneous Notes Telephone Encounter - Babita Rosado - 10/29/2015 9:32 AM CDT Called pt to schedule lvm. Babita CHU Tip Inserter [facility] Telephone Encounter - Babita Rosado - 2015 8:37 AM CDT Called pt to schedule LVM. Babita CHU Tip Inserter [facility] Telephone Encounter - Alfreda Segura - 2015 8:14 AM CDT Order received from [facility] for TF LESI. Order scanned to telephone encounter, routing to scheduling coordinators to contact patient. Alfreda Segura Tip Inserter Pain Management Clinic documented in this encounter Plan of Treatment Not on filedocumented as of this encounter Visit Diagnoses Not on filedocumented in this encounter Care Teams Educational Advisor Relationship Specialty Start Date End Date Harriet Haley MD PCP - General Physician Skip Pit Worker 10/01/15 [facility] [address] [place] [address] documented as of this encounter
--- OUTSIDE RECORDS SUMMARY | 2022-07-15 06:43 | XMS_ITS | Encounter Summary ---
:1965 Author Organization [place] Address [address] [place] [address] Care Team Providers Name Role Phone Harriet Haley MD Primary Care Provider [phone] Encounter Details Date Type Department Care Team Description 02/20/2016 Surgery - [facility] Marco Antonio Cid MD [facility] UROLOGIC [place] SPECIALISTS [facility] [address] [address] [place] [address] (Wo rk) Social History Tobacco [...] on filedocumented in this encounter Care Teams Health Manager Relationship Specialty Start Date End Date Harriet Haley MD PCP - General Physician Bariatric Physician 10/01/15 [facility] [address] [facility] [address] documented as of this encounter
--- OUTSIDE RECORDS SUMMARY | 2022-07-15 06:43 | XMS_ITS | Encounter Summary ---
:1965 Author Organization [place] Address [address] [place] [address] Care Team Providers Name Role Phone Harriet Haley MD Primary Care Provider [phone] Encounter Details Date Type Department Care Team Description 02/19/2016 Anesthesia - [facility] Caleb Vigil, [facility] [place] [address] [place] [address] [phone] Social History Tobacco Use Types Packs/Day Years [...] on filedocumented in this encounter Care Teams Athletic Events Scorer Relationship Specialty Start Date End Date Harriet Haley MD PCP - General Physician Criminal Justice Faculty 10/01/15 [facility] [address] [place] [address] [place] [address] documented as of this encounter
--- OUTSIDE RECORDS SUMMARY | 2022-07-15 06:43 | XMS_ITS | Encounter Summary ---
:1965 Author Organization [place] Address [address] [place] [address] Care Team Providers Name Role Phone Harriet Haley MD Primary Care Provider [phone] Reason for Referral - Closed Specialty Diagnoses / Procedures Referred By Contact Refer red To Contact Diagnoses Lumbar radicular pain Adriana Johnson APRN Procedures NEEDLE EMG SINGLE FIBER CURATOR NATURAL HISTORY MUSEUM [facility] [address] [place] [address] Referral ID Status Reason Start Date Expiration Date Visits Requ ested Visits Authorized [id number] Closed 10/10/2015 10/09/2016 1 1 ER ENGINEER Reason for Visit Reason Comments Neurologic Problem LBP with foot drop Encounter Details Date Type Department Care Team Description 10/10/2015 Office Visit [facility] Adriana Johnson Lumbar r adicular pain [facility] MELISSA Mercado CN P (Primary Dx) Clinic [facility] ORTHOPEDICS [address] [place] [address] [place] [address] [phone] Social History Tobacco Use Types Packs/Day Years Used Date Smoking Tobacco: Former Cigarettes Quit : 09/15/2015 Alcohol Use Standard Drinks/Week Comments Yes 0 (1 standard drink = 0.6 oz pure alcoho l) SMALL Sex Assigned at Date Recorded Not on file documented as of this encounter Last Filed Vital Signs Vital Sign Reading Time Taken Comments Blood Pressure 118/80 10/10/2015 2:55 PM REEFER ENGINEER Pulse 99 10/10/2015 2:55 PM REEFER ENGINEER Temperature 36.9 ??C (98.5 ??F) 10/10/2015 2:55 PM REEFER ENGINEER Respiratory Rate - - Oxygen Saturation 95% 10/10/2015 2:55 PM REEFER ENGINEER Inhaled Oxygen Concentration - - Weight 106.6 kg (235 lb) 10/10/2015 2:55 PM REEFER ENGINEER Height 170.2 cm (5' 7) 10/10/2015 2:55 PM REEFER ENGINEER Body Mass Index 36.81 10/10/2015 2:55 PM REEFER ENGINEER documented in this encounter Patient Instructions Patient InstructionsSchAdriana rivera APRN CNP - 10/10/2015 2:48 PM REEFER ENGINEER 1. Schedule EMG with Dr. Gil 2. Contact clinic if weakness progresses ER ENGINEER documented in this encounter Progress Notes Adriana Johnson APRN CNP - 10/10/2015 2:[address] Pee Hickey [facility] Neurosurgery Clinic Visit The following is a packing and shipping clerk of a shared visit between Dr. Pee Hickey and myself, Adriana Mcclure CURATOR NATURAL HISTORY MUSEUM CC: lumbar radicular pain on the left [...] management, MRI results and POC. Adriana Johnson CNP [facility] [address] [address] Pager [phone] ER ENGINEER documented in this encounter Nursing Notes Tanja Chandra, RN - 10/10/2015 2:58 PM CST . [...] drop. 5 minutes nursing intake time Tanja Chandra, vamp cut out worker plan: 1. Schedule EMG with Dr. Gil 2. Contact clinic if weakness progresses 2 minutes nursing discharge time Tanja Chandra RN ER ENGINEER documented in this encounter Plan of Treatment Not on filedocumented as of this encounter Procedures Procedure Name Priority Date/Time Associated Diagnosis Comme nts HC NEEDLE EMG SINGLE Routine 10/10/2015 2:47 PM REEFER ENGINEER Lumbar rad icular pain FIBER documented in this encounter Visit Diagnoses Diagnosis Lumbar radicular pain - Primary Thoracic or lumbosacral neuritis or radi culitis, unspecified documented in this encounter Care Teams Circuit Walker Relationship Specialty Start Date End Date Harriet Haley MD PCP - General Physician Pool Technician 10/01/15 [facility] [address] [place] [address] documented as of this encounter
--- OUTSIDE RECORDS SUMMARY | 2022-07-15 06:43 | XMS_ITS | Encounter Summary ---
:1965 Author Organization [place] Address [address] [place] [address] Care Team Providers Name Role Phone Amor [place] MD Primary Care Provider Reason for Visit Reason Onset Date Comments Refill Request 05/20/2005 synthroid Encounter Details Date Type Department Care Team Description 05/20/2005 Refill [facility] Mikel Montgomery Refill Request Luly Hugo MD (synthroid) [address] [facility] [address] [place], [place] [address] [address] [place] [address] [phone] (Wo rk) Social History Tobacco Use Types [...] Last OV 08/24/03. Last fill 04/16/05. To MD to review as nurse cannot authorize refill d/t last OV and TSH >1yr ago. documented in this encounter Plan of Treatment Not on filedocumented as of this encounter Visit Diagnoses Not on filedocumented in this encounter Care Teams Angle Shearer Relationship Specialty Start Date End Date Amor [place] MD PCP - General 09/24/01 05/05/13 [facility] [address] [place] [address] documented as of this encounter
--- OUTSIDE RECORDS SUMMARY | 2022-07-15 06:43 | XMS_ITS | Encounter Summary ---
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 With removal of the last bit of [...] send a copy to Dr. Tere Wilson [facility] Signed Lizzie Duron documented in this encounter Plan of Treatment Not on filedocumented as of this encounter Procedures Procedure Name Priority Date/Time Associated Diagnosis Comme nts LAB RESULT - HIM 02/12/2015 5:39 PM SCAN CDT LAB RESULT - [facility] 02/12/2015 11:39 AM SCAN CDT SURGICAL PATHOLOGY [...] [facility] the results section. IMAGING OTHER - [facility] 02/08/2015 SCAN EKG CARDIAC - [facility] 02/08/2015 SCAN EKG CARDIAC - [facility] 02/08/2015 SCAN documented in this encounter Results LAB RESULT - [facility] SCAN (02/12/2015 5:39 PM CDT) Specimen (Source) Anatomical Location Collection Method / Collectio n Time Received Time / Laterality Volume Narrative This result has an attachment that is no t available. Historical Provider NON-BEAKER LAB TESTING LAB RESULT - [facility] SCAN (02/12/2015 11:39 AM CDT) Specimen (Source) Anatomical Location Collection Method / Collectio n Time Received Time / Laterality Volume Narrative This result has an attachment that is no t available. Historical Provider NON-BEAKER LAB TESTING (ABNORMAL) Surgical Pathology Exam (02/08/2015 8:11 AM CDT) [facility] Method Time Signature Case Report Surgical Pathology ?Case: [id number] ? 02/12/2015 HEALTH 11:39 AM [facility] Authorizing Provider: ??Anamika Duron MD ? Ordering Provider: ?? Lizzie Duron MD ? CDT [facility] Ordering Location: ? [facility] OR ? Collected: ? 02/08/2015 0811 ? [...] AND ABUNDANT HYALINIZED TISSUE WITH 11:39 AM [facility] ?FEATURES OF CORPUS ALBICANS CDT [facility] ?? 2) NO TUMOR SEEN LABORATOR Y B) RIGHT FALLOPIAN TUBE AND OVARY, SALPINGO-OOPHORECTOMY: ?? 1) BENIGN OVARY WITH HEMORRHAGIC CORPUS LUTEUM CYST ?? 2) BENIGN FALLOPIAN TUBE WITHOUT SIGNIFICANT HISTOPATHOL OGIC ?ABNORMALITY ?? 3) ADNEXAL TISSUE WITH ENDOSALPINGIOSIS ?? 4) NEGATIVE FOR MALIGNANCY a t 11:38 AM Clinical Clinical history: ?Right ovarian cyst [620.2] Pelvic pain [[id number]] 02/12/2015 HEALTH Information Reason for procedure: ?Not provided 11:39 AM [facility]. Time placed in formalin: 8:13 a.m. [facility] Gross A) Submitted in formalin in a container labeled with the patient's name and designated biopsy anterior cul de sac is a fragment of dennis good tissue measuring 0.5 x 0.5 x 0.2 cm in greatest dimensions. ??B&TE-1C ?? 02/12/2015 HEALTH Description 11:39 AM [facility]. B) Submitted in formalin in a container [...] no distinct lesions. ??RS-3C ??BHS:sg Charges CPT: ?40184 X 2 02/12/2015 HEALTH ICD9: ?? 620.1 11:39 AM [facility] Result Flag Abnormal (A) Normal 02/12/2015 HEALTH 11:39 AM [facility] Comment: All histology slide preparation, stains and image analysis done ? at [facility] are performed at [facility], [address], [place], [address], with f inal interpretation and ? frozen section analysis at the indicated laboratory. Specimen Anatomical Collection Method Collection Time Receive d Time (Source) Location / / Volume Laterality Tissue specimen TOPOGRAPHY UNKNOWN 02/08/2015 8:11 AM 02/08/2015 (specimen) / Unknown CDT 11:50 AM CDT Lizzie DEUTSCH - [facility] Organization Address City/State/ZIP Code Phon e Number [facility] LABORATORY [facility] [place] [address] [address] [facility] [address] [place] [address] LABORATORY Cytology, non-gynecologic (02/08/2015 8:06 AM CDT) [facility] gist Method Time Signature Case Report Medical Cytology ?Case: [id number] ? 02/12/2015 [facility] 5:39 PM [facility] Authorizing Provider: ??Anamika Duron MD ? Ordering Provider: ?? Lizzie Duron MD ? CDT [facility] Ordering Location: ? [facility] OR ? Collected: ? 02/08/2015805 ? LABOR ATORY Pathologist: ? Adriana Fang MD ?Received: ?02/08/2015 0832 ? Specimen: ?Pelvis Washin g, Pelvic Washing with Lactated Ringer ? General Path Negative for malignant cells Negative 02/13/[address] [place] [address] Interpretation at ??5:39 PM for 5:39 PM [facility] malignant CDT ROSS'S cells, LABORATORY Non-Diagnos tic Lab AP PELVIC WASHINGS, SUBMITTED FOR CYTOLOGIC EXAM: 02/12/2015 [facility] Micro/Diagnosis ??1) NO MALIGNANT CELLS IDENTIFIED 5:39 PM [facility] ??2) MESOTHELIAL CELLS PRESENT CDT ISSACS Electronically signed by Adriana Fang MD on 5 at ??5:39 PM LABORATORY Comment Please see the 02/12/2015 [facility] concurrent 5:39 PM [facility] surgical CDT [facility] pathology report LABORATORY ([id number]). Specimen 300 ml cloudy pale red fluid 02/12/2015 [facility] Description 5:39 PM [facility] 1 Air dried slide CDT [facility] 1 [employer] slid LABORATORY Are prepared. CPT: ? 73163 ICD9: ?620.1 Comment: All histology slide preparation, stains and image analysis done ? at [facility] are performed at [facility], [address] [place] [address], [address], with f inal interpretation and ? frozen section analysis at the indicated laboratory. Specimen Anatomical Collection Method Collection Time Receive d Time (Source) Location / / Volume Laterality Specimen of 02/08/2015 8:06 AM 5 8:32 unknown material CDT AM CDT (specimen) (Pelvis Washing) Lizzie Duron MD [facility] Performing Organization Address City/State/ZIP Code Phon e Number [facility] LABORATORY [facility] [place] [address] [place] [address] [place] [address] [address] [facility] ECG 12-LEAD WITH MUSE (LHE) (02/08/2015 5:48 AM CDT) Component Value Ref Range Test Analysis Performed Pathologis t Method Time At Signature Systolic Blood mmHg 02/08/2015 Pressure 4:26 PM CDT Diastolic Blood mmHg 02/08/2015 Pressure 4:26 PM CDT Ventricular Rate 87 BPM 02/08/2015 4:26 PM CDT Atrial Rate 87 BPM 02/08/2015 4:26 PM CDT MI Interval 158 ms 02/08/2015 4:26 PM CDT QRS Duration 80 ms 02/08/2015 4:26 PM CDT QT 372 ms 02/08/2015 4:26 PM CDT QTc 447 ms 02/08/2015 4:26 PM CDT P Arg[place] 57 degrees 02/08/2015 4:26 PM CDT R AXIS 11 degrees 02/08/2015 4:26 PM CDT T Argyle 40 degrees 02/08/2015 4:26 PM CDT Interpretation Normal sinus rhythm 02/08/2015 ECG Low voltage QRS 4:26 PM Cannot rule out Anterior infarct , age undetermined CDT Abnormal ECG No previous ECGs available Confirmed by BRENNA ??SHAWN MONTILLA LOC:JN ([id number]) on 02/08/2015 4:26 :06 PM Specimen (Source) [...] cyst documented in this encounter Care Teams Member Of Parliament Relationship Specialty Start Date End Date Nissa Cassidy DO PCP - General Internal Medicine 05/06/13 09/30/[address] [address] documented as of this encounter
--- OUTSIDE RECORDS SUMMARY | 2022-07-15 06:43 | XMS_ITS | Encounter Summary ---
:1965 Author Organization [facility] Address [address] [place] [address] Care Team Providers Name Role Phone Amor Montgomery MD Primary Care Provider Encounter Details Date Type Department Care Team Description 06/03/2006 Results Only [facility] ANESTHESIOLOGIST ASSISTANT CERTIFIED [address] [place], [place] [address] (Wo rk) Social History [...] TIP, SPINE/PARASPINE DX/THERAPEUTIC INJECTION(06/03/2006 2:30 PM CDT) [facility] Method Time Signature IMAGECAST RADIOLOGY RESULT CERVICAL INTERLAMINAR EPIDURAL STEROID INJECTION - 6 RESULTS HISTORY: ??Left C7 radicular pain. PROCEDURE: ??The procedure, indications, risks (including th e risk of infection, bleeding, contrast reaction, paralysis or ), and alternatives to therapy were discussed with the patient. Wri tten informed consent was obtained. The patient was [...] filedocumented in this encounter Care Teams Production Recovery Operator Relationship Specialty Start Date End Date Amor Montgomery MD PCP - General 09/24/01 05/05/13 [facility] [address] [place] [address] documented as of this encounter
--- OUTSIDE RECORDS SUMMARY | 2022-07-15 06:43 | XMS_ITS | Encounter Summary ---
:1965 Author Organization [facility] Address [address] [place] [address] Care Team Providers Name Role Phone Harriet Haley MD Primary Care Provider [phone] Encounter Details Date Type Department Care Team Description 02/20/2016 Hospital Encounter [facility] Pako Cid P ost-operative [facility] OR [facility] [address] [place] [id number] [place] [id number] Social History Tobacco Use Types Packs/Day Years [...] AM CDT Operative note Date: 02/20/2016 Site: [facility] Surgeon: Pako Cid M.D. Assist: Chichi Youngblood [...] correctly identify the patient. Once accomplished, a [place] retractor was used to gain access to [...] status documented in this encounter Care Teams Mgmt Analyst Relationship Specialty Start Date End Date Harriet Haley MD PCP - General Physician Rigger Apprentice 10/01/15 [facility] [address] [facility] [place] [address] documented as of this encounter
--- OUTSIDE RECORDS SUMMARY | 2022-07-15 06:43 | XMS_ITS | Encounter Summary ---
:1965 Author Organization [facility] Address [address] [place] [address] Care Team Providers Name Role Phone Harriet Haley MD Primary Care Provider [phone] Reason for Referral Consultation - Closed Specialty Diagnoses / Procedures Referred By Contact Refer red To Contact Neurosurgery Diagnoses Left lumbar radiculopathy Lumbar disc herniation Central spinal stenosis Lumbar degenerative disc disease Andrea Carvalho DO [facility] [address] [id number] (OP) [place] [address] [place] [address] Phone: Fax: Referral ID Status Reason Start Date Expiration Date Visits Requ ested Visits Authorized [id number] Closed 10/10/2015 10/09/2016 1 1 NE MANAGER Reason for Visit Reason Comments Musculoskeletal Problem BACK PAIN Encounter Details Date Type Department Care Team Description 10/10/2015 Office Visit [facility] Andrea Bonner Left lumba r radiculopathy (Primary Dx); Sports Medicine DO Asael Lumbar disc herniation; [facility] [place] [address] Central spinal stenosis; [address] [employer] [place], [place] Lumbar degenerative disc dis ease [phone] [place] [address] Social History Tobacco Use Types [...] Comments Blood Pressure 126/80 10/10/2015 1:57 PM ENGINE MANAGER Pulse - - Temperature - - Respiratory Rate - - Oxygen Saturation - - Inhaled Oxygen Concentration - - Weight 106.6 kg (235 lb) 10/10/2015 1:57 PM ENGINE MANAGER Height 170.2 cm (5' 7) 10/10/2015 1:57 PM ENGINE MANAGER Body Mass Index 36.81 10/10/2015 1:57 PM ENGINE MANAGER documented in this encounter Patient Instructions Patient InstructionsJason Gil - 10/10/2015 2:29 PM CST We addressed [...] (sooner if needed; call direct clinic number [[phone]] at any time with questions or concerns) NE MANAGER documented in this encounter Progress Notes nAdrea Carvalho DO - 10/10/2015 1:56 PM CST [facility] Visit s [...] counseling the patient with total time spent [id number] with the patient being 20 minutes. Andrea Carvalho DO, [facility] Disclaimer: This [...] behalf by Jason Gil, a trained medical data analyst. The creationof this record is based on the provider's personal observations and the statements of the patient. This document has been checked and approved by the attending provider. Jason Gil 2:22 PM October 10, 2015 NE MANAGER documented in this encounter Nursing Notes Waldo [...] (106.595 kg). BP completed using cuff size: regular Waldo Sinclair ATC/R NE MANAGER documented in this encounter Plan of Treatment Pending Results Name Type Priority Associated Diagnoses Date/Ti ar ORTHO SEALER AIRCRAFT REFERRAL Referral Routine Left jorge mbar radiculopathy [...] disc documented in this encounter Care Teams Lay Out Technician Relationship Specialty Start Date End Date Harriet Haley MD PCP - General Physician Senior Abap Developer 10/01/15 [facility] [address] [place] [address] documented as of this encounter
--- OUTSIDE RECORDS SUMMARY | 2022-07-15 06:43 | XMS_ITS | Encounter Summary ---
:1965 Author Organization [facility] Address [address] [place] [address] Care Team Providers Name Role Phone Amor Montgomery MD Primary Care Provider Encounter Details Date Type Department Care Team Description 08/05/2004 Orders Only [facility] Amor Montgomery HYRO[facility]ISM [facility] Luly Hugo MD (Primary Dx) [address] [employer] [place] [employer] [address] [place], [place] [address] [phone] Social History Tobacco Use Types Packs/Day Years [...] Primary documented in this encounter Care Teams Manager Strategic Partnerships Relationship Specialty Start Date End Date Amor Montgomery MD PCP - General 09/24/01 05/05/13 [employer] [address] [place] [address] documented as of this encounter
--- OUTSIDE RECORDS SUMMARY | 2022-07-15 06:43 | XMS_ITS | Encounter Summary ---
:1965 Author Organization [facility] Address [address] [place] [address]. [place] [address] Care Team Providers Name Role Phone Harriet Haley MD Primary Care Provider [phone] Reason for Visit [facility] Physical Therapy (Routine) - Closed Specialty Diagnoses / Procedures Referred By Contact Refer red To Contact Mumtaz Rushing MD [facility] Sports & [facility] Physical Therapy - [address] [place] [address] [facility] [place] [address] Phone: Fax: Referral ID Status Reason Start Date Expiration Date Visits Requ ested Visits Authorized J[facility]O/HP/LBP Closed 03/26/2016 08/09/2016 18 16 Encounter Details Date Type Department Care Team Description 04/10/2016 Therapy Visit [facility] Lizzie Patino Chro kathryn bilateral Rehabilitation Services PT low back pain with [place] [address] left-sided sciatica [address] [facility]. (Primary Dx) [place] [id number] Social History Tobacco Use Types Packs/Day Years Used Date Smoking Tobacco: Former Cigarettes Quit : 09/15/2015 Alcohol Use Standard Drinks/Week Comments Yes 0 (1 standard drink = 0.6 oz pure alcoho l) SMALL Sex Assigned at Date Recorded Not on file documented as of this encounter Progress Notes Lizzie Patino, PT - 05/12/2016 2:59 PM CDT Subjective: [...] Name Priority Date/Time Associated Diagnosis Comme nts [facility] NEUROMUSCULAR Routine 04/10/2016 3:32 PM Chronic bilateral low RE-EDUCATION CDT back pain with left-sided sciatica [facility] THERAPEUTIC EXERCISES Routine 04/10/2016 3:32 PM Chronic b ilateral low CDT back pain with left-sided sciatica documented in this encounter Visit Diagnoses Diagnosis Chronic bilateral low back pain with lef t-sided sciatica - Primary documented in this encounter Care Teams Tension Machine Operator Relationship Specialty Start Date End Date Harriet Haley MD PCP - General Physician Doll Wigs Hackler 10/01/15 [facility] [address] [facility] [place] [address] documented as of this encounter
--- OUTSIDE RECORDS SUMMARY | 2022-07-15 06:43 | XMS_ITS | Encounter Summary ---
:1965 Author Organization [facility] Address [address] [place] [address] Care Team Providers Name Role Phone Harriet Haley MD Primary Care Provider [phone] Encounter Details Date Type Department Care Team Description 11/05/2015 Hospital Encounter [facility] Pako Cid S UI (stress urinary [facility] incontinence, [place] [facility] [address] [place] [address] [place] [id number] Social History Tobacco Use Types Packs/Day Years [...] Historical Provider - 11/05/2015 12:27 PM CDT Unit Educator Note: Lizzie He was visited by Resident Unit Educator and received prayer and blessingas appropriate for current pre-surgical condition.. Rev. Cherie Medina M.Div. Resident Unit Educator [phone] documented in this encounter H&P Notes [...] 11/05/2015 9:33 AM CDT FULL OPERATIVE NOTE [facility] Name: Lizzie He : 1965 Date: 11/05/2015 at 9:34 AM Preop Diagnosis: 1. Recurrent Stress Urinary Incontinence. 2. Pelvic Pain / Pelvic floor muscle dysfunction. Postop Diagnosis: 1. Recurrent Stress Urinary Incontinence. 2. Pelvic Pain / Pelvic floor muscle dysfunction. 3. Urethral Injury (Urethrostomy). Procedure: 1. Cystoscopy. 2. Retropubic Midurethal Sling Placement (SPARC) Placement and removal. 3. Urethral Injury Repair Surgeon:Pako Cid MD. Fact Checker: Aliyah Becker MD. Drain: 16Fr sneed EBL: [...] heal, follow up in 2 weeks at [facility] with Dr Cid for removal of sneed. Call for appointment / keep return visit scheduled appointment. [phone]. Will consider placing a new mid-urethral sling in at least 3 months after the urethra has healed completely and no evidence of fistula. Aliyah Becker documented in this encounter Plan of Treatment Not on filedocumented as of this encounter Visit Diagnoses Diagnosis OPHELIA (stress urinary incontinence, female ) Female stress incontinence documented in this encounter Care Teams Rfid Strategist Relationship Specialty Start Date End Date Harriet Haley MD PCP - General Physician Fact Checker 10/01/15 [facility] [address] [place] [address] documented as of this encounter
--- OUTSIDE RECORDS SUMMARY | 2022-07-15 06:43 | XMS_ITS | Encounter Summary ---
:1965 Author Organization [place] Address [address] [place] [address] Care Team Providers Name Role Phone Harriet Haley MD Primary Care Provider [phone] Reason for Visit Reason Comments Post-op Problem Encounter Details Date Type Department Care Team Description 11/13/2015 [facility] without [facility] angy Cortez MD sciatica, unspecified [address] [facility] EMERGENCY PHYSICIANS back pain later[place] [address] [phone] [place], [place] [address] (Wo rk) Social History [...] contain Tylenol?? (acetaminophen), including Vicodin??, Tylenol #3??, [place]??, Lortab??, and Percocet??. You should not take [...] back pain laterality M54.5 Aroldo Heck 11/13/2015 [facility] EMERGENCY DEPARTMENT I, Aroldo Heck, am serving as a scribe at 7:59 PM on 11/13/2015 to document services personally performed by Kana Westbrook MD based on my observations and the provider's statements to me. Kana Westbrook MD 11/18/15 2202 Jacqueline Roman RN - 11/13/2015 7:20 PM [...] Component Value Ref Test Analysis Performed At [facility] Range Method Time Signature Color Urine Light Yellow [facility] Appearance Urine Clear [facility] Glucose Urine Negative NEG [place] mg/dL [facility] Bilirubin Urine Negative NEG [facility] Ketones Urine Negative NEG [place] mg/dL [facility] Specific [place] 1.007 1.003 - [place] Urine 1.035 [facility] Blood Urine Negative NEG [facility] pH Urine 5.0 5.0 - [place] 7.0 pH [facility] Protein Albumin Negative NEG [place] Urine mg/dL [facility] Urobilinogen Normal 0.0 - [place] mg/dL 2.0 [facility] mg/[facility] Nitrite Urine Negative NEG [facility] Leukocyte Small (A) NEG [place] Esterase Urine [facility] Source Catheterized [facility] WBC Urine 2 0 - 2 [place] /HPF [facility] RBC Urine <1 0 - 2 [place] /HPF [facility] Bacteria Urine Few (A) NEG /HPF [facility] Specimen Anatomical Location Collection Method Collection Time Received Time (Source) / Laterality / Volume Urine specimen URINE SPECIMEN 11/13/2015 9:05 11/13/19 16 9:12 (specimen) COLLECTION, PM CDT PM CDT CATHETERIZED / Unknown Kana Westbrook MD LAB - URINE ORDERABLES Performing Organization Address City/State/ZIP Code Phon e Number M [facility] [address] [place], [place] [address] [facility] [address] [place], [place] [address] 7, [facility] [phone] (ABNORMAL) Basic metabolic panel (11/13/2015 8:11 PM CDT) athologist Signature Sodium 138 133 - 144 [place] mmol/L [facility] Potassium 4.2 3.4 - 5.3 [place] mmol/L [facility] Chloride 106 94 - 109 [place] mmol/L [facility] Carbon Dioxide 25 20 - 32 [place] mmol/L [facility] Anion Gap 7 3 - 14 [place] mmol/L [facility] Glucose 105 (H) 70 - 99 [place] mg/dL [facility] Urea Nitrogen 13 7 - 30 [place] mg/dL [facility] Creatinine 0.94 0.52 - [place] 1.04 mg/dL [facility] GFR Estimate 63 >60 [place] mL/min/1.[address] Comment: Non GFR Calc GFR Estimate If Black 77 >60 mL/min/1.7m2 [facility] Comment: GFR Calc Calcium 9.4 8.5 - 10.1 mg/dL [facility] Specimen Anatomical Collection Method Collection Time Receive d Time (Source) Location / / Volume Laterality Blood specimen 11/13/2015 8:11 PM 016 8:46 (specimen) CDT PM CDT Kana Westbrook MD LAB - BLOOD ORDERABLES Performing Organization Address [facility] Phon e Number [facility] [address] [place], [place] [address] [place] [address] [address] [place], [place] [address] 7[facility] [phone] CBC with platelets differential (11/13/2015 8:11 PM CDT) Patholo gist Method Time Signature WBC 10.2 4.0 - [facility] 11.0 [facility] 10e9/L [facility] RBC Count 4.07 3.8 - 5.2 [place] 10e12/L [facility] Hemoglobin 12.4 11.7 - [place] 15.7 g/dL [facility] Hematocrit 37.3 35.0 - [place] 47.0 % [facility] MCV 92 78 - 100 [place] fl [facility] MCH 30.5 26.5 - [place] 33.0 pg [facility] MCHC 33.2 31.5 - [place] 36.5 g/dL [facility] RDW 14.0 10.0 - [place] 15.0 % [facility] Platelet Count 301 150 - 450 [place] 10e9/L [facility] Diff Method Automated [place] Method [facility] % Neutrophils 51.4 % [facility] % Lymphocytes 34.7 % [facility] % Monocytes 10.7 % [facility] % Eosinophils 2.4 % [facility] % Basophils 0.6 % [facility] % Immature 0.2 % [place] Granulocytes [facility] Nucleated RBCs 0 0 /100 [facility] Absolute 5.3 1.6 - 8.3 [place] Neutrophil 10e9/L [facility] Comment: CORRECTED ON 11/12 AT 2159: PRE VIOUSLY REPORTED 5.2 Absolute Lymphocytes 3.5 0.8 - 5.3 10e9/L [facility] Absolute Monocytes 1.1 0.0 - 1.3 10e9/L [facility] Absolute Eosinophils 0.2 0.0 - 0.7 10e9/L [facility] Absolute Basophils 0.1 0.0 - 0.2 10e9/L [facility] Abs Immature Granulocytes 0.0 0 - 0.4 10e9/L [facility] Absolute Nucleated RBC 0.0 [facility] Reactive Lymphs Present [facility] Platelet Estimate Normal [facility] Specimen Anatomical Collection Method Collection Time Receive d Time (Source) Location / / Volume Laterality Blood specimen 11/13/2015 8:11 PM 016 8:46 (specimen) CDT PM CDT Kana Westbrook MD LAB - BLOOD ORDERABLES Performing Organization Address City/State/ZIP Code Phon e Number [facility] [address] [place], [place] [address] [facility] [address] [place] [phone] [facility] [phone] documented in this encounter Visit Diagnoses Diagnosis [...] pain documented in this encounter Care Teams Machine Gun Mechanic Relationship Specialty Start Date End Date Harriet Haley MD PCP - General Physician Bond Broker 10/01/15 [facility] [address] [place] [address] documented as of this encounter
--- OUTSIDE RECORDS SUMMARY | 2022-07-15 06:43 | XMS_ITS | Encounter Summary ---
:1965 Author Organization [place] Address [address] [place] [address]. [place] [address] Care Team Providers Name Role Phone Harriet Haley MD Primary Care Provider [phone] Reason for Visit [facility] Physical Therapy (Routine) - Closed Specialty Diagnoses / Procedures Referred By Contact Refer red To Contact Mumtaz Rushing MD [facility] PA[facility] Physical Therapy - [address] [place] [address] [place] [address] Phone: Fax: Referral ID Status Reason Start Date Expiration Date Visits Requ ested Visits Authorized J[facility]O/HP/LBP Closed 03/26/2016 08/09/2016 18 16 Encounter Details Date Type Department Care Team Description 03/26/2016 Therapy Visit [facility] Gerardo Cavazos Chron ic bilateral Rehabilitation Services PT low back pain with [facility] left-sided sciatica [address] [facility] ATHLETIC MEDICINE (Primary Dx) [place] [address] [address] [address] [place], [place] [phone] [address] Social History Tobacco Use Types Packs/Day [...] min Extension (EXT): mod and pain Side Garrison R (SG R): min and pain Side Garrison L (SG L): mod and pain Test [...] Sheet for this information) Short term and intermediate card tender goals: (See Goal Flow Sheet for this [...] Priority Date/Time Associated Diagnosis Comme [facility] Z THERAPEUTIC Routine 03/26/2016 6:31 PM Chronic Bilateral L ow EXERCISES CDT Back Pain With Left-Sided Sciatica documented in this encounter Visit Diagnoses Diagnosis Chronic bilateral low back pain with lef t-sided sciatica - Primary documented in this encounter Care Teams E Mail System Administrator Relationship Specialty Start Date End Date Harriet Haley MD PCP - General Physician Jukebox Checker 10/01/15 [facility] [address] [address] documented as of this encounter
--- OUTSIDE RECORDS SUMMARY | 2022-07-15 06:43 | XMS_ITS | Encounter Summary ---
:1965 Author Organization [place] Address [address] [place] [address] Care Team Providers Name Role Phone Amor Montgomery MD Primary Care Provider Reason for Visit Reason Onset Date Comments Refill Request 08/05/2004 Encounter Details Date Type Department Care Team Description 08/05/[address] [facility] Amor Tubbs MD Refill Request [facility] [address] [place] [address] [place] [address] [phone] Social History Tobacco Use Types Packs/Day Years Used Date Smoking Tobacco: Every Day Comments: LESS THAN 1 PPD Alcohol Use Standard Drinks/Week Comments Yes 0 (1 standard drink = 0.6 oz pure alcoho l) SMALL Sex Assigned at Date Recorded Not on file documented as of this encounter Miscellaneous Notes Telephone Encounter - 08/05/2004 2:25 PM OVEN UNLOADER >> ISABELLA GONZALEZY Mon Aug 05, 2004 2:26 PM Synthroid reordered with fax to pharmacy, as previously was printed out. documented in this encounter Plan of Treatment Not on filedocumented as of this encounter Visit Diagnoses Not on filedocumented in this encounter Care Teams Senior Quality Analyst Relationship Specialty Start Date End Date Amor Montgomery MD PCP - General 09/24/01 05/05/13 [facility] [address] [place] [address] documented as of this encounter
--- OUTSIDE RECORDS SUMMARY | 2022-07-15 06:43 | XMS_ITS | Encounter Summary ---
:1965 Author Organization [place] Address [address] [place] [address] Care Team Providers Name Role Phone Amor Montgomery MD Primary Care Provider Encounter Details Date Type Department Care Team Description 05/12/2006 Results Only [facility] Ronni Bush MD Hospital Results [facility] [address] [place], [place] [address] (Wo rk) Social History Tobacco Use Types [...] TIP, SPINE/PARASPINE DX/THERAPEUTIC INJECTION(05/12/2006 11:41 AM CDT) [facility] Method Time Signature IMAGECAST RADIOLOGY RESULT [...] on filedocumented in this encounter Care Teams Window Decorator Relationship Specialty Start Date End Date Amor Montgomery MD PCP - General 09/24/01 05/05/13 [facility] [address] [place] [address] documented as of this encounter
--- OUTSIDE RECORDS SUMMARY | 2022-07-15 06:43 | XMS_ITS | Encounter Summary ---
:1965 Author Organization [place] Address [address] [place] [address] Care Team Providers Name Role Phone Amor Montgomery MD Primary Care Provider Nissa Cassidy DO Primary Care Provider [phone] Harriet Haley MD Primary Care Provider [phone] Encounter Details Date Type Department Care Team Description 06/12/2010 [facility] [address] [place] [address] [place] [address] [place] [phone] (Wo rk) Social History Tobacco Use [...] / / Volume Laterality 06/12/2010 5:59 PM 201 0 6:23 CDT PM CDT Narrative [facility] - 06/14/2010 2:06 PM CDT Case#: [id number] CYTOPATHOLOGY REPORT [facility] Status: Final Report MICRO/DIAGNOSIS: PERITONEAL/PELVIC WASHINGS: ? - NEGATIVE FOR MALIGNANT CELLS. COMMENT: The cytologic findings correlate with co rresponding ovarian pathology [id number]. Pathologist: Belle Leong ??Mickey Guallpa Electronically Signed [facility] CLINICAL INFORMATION: Clinical History: LOWER LEFT OVARIAN CARLIN N Reason for Procedure: LOWER LEFT QUADRAN T PAIN SPECIMEN DESCRIPTION: A) SOURCE: PERITONEAL WASH The Specimen consists of 100 mL of clear colorless fluid, from which: 1 Direct smear 1 SurePath slide is prepared. The following procedure codes have been billed on this case:1 X WASH/BRUSH CYTO ([id number]); ICD9: 620.1 glw This test was performed at: ?[facility] ?[address] ?[place], [place] ??[address] ?Phone n umber: [phone] CC: JERI VIVAR MD [phone] KJ CORTEZ MD [phone] CCEND: All histology slide preparation, stains and image analysis done at [facility] are performed at [facility], [address] [place] [address], [facility], with f inal interpretation and frozen section analysis at the indicated laboratory. Date Collected: 06/12/10 ?Date Received : 06/13/10 Date Completed: 06/14/10 14:05 ?? Reques t: [phone] Jeri DEUTSCH Farhan JACKSON Performing Organization Address City/State/ZIP Code Phon e Number [facility] [place] [address] [facility] [address] [place] [address] LABORATORY Surgical Pathology Exam (06/12/2010 5:30 PM CDT) Specimen Anatomical Collection Method Collection Time Receive d Time (Source) Location / / Volume Laterality 06/12/2010 5:30 PM 0 5:46 CDT PM CDT Narrative [facility] - 06/14/2010 11:38 AM CDT Case#: [id number] SURGICAL PATHOLOGY REPORT [facility] Status: Final Report MICRO/DIAGNOSIS: LEFT OVARY AND FALLOPIAN TUBE, LEFT SALP INGO-OOPHORECTOMY: ? 1) BENIGN CORPUS LUTEAL AND FOLLI CULAR CYSTS ? 2) FALLOPIAN TUBE WITH SCATTERED BENIGN ENDOSALPINGIOTIC ?CYSTS ? 3) NO EVIDENCE OF MALIGNANCY. Pathologist: Belle Leong ??Mickey Guallpa ??(Electronically Signed) [facility] CLINICAL INFORMATION: Lower left abdominal pain [...] allopian tube reveals no significant lesions. RS-2C ??MOSESS:darshana The following procedure codes have been billed on this case:1 X LEVEL 4-G&M (48519); ICD9: 620.1 This test was performed at: ?[facility] ?[address] ?[place], [place] ??[address] ?Phone n umber: [phone] CC: JERI VIVAR MD [phone] KJ CORTEZ MD [phone] CCEND: All histology slide preparation, stains and image analysis done at [facility] are performed at [facility], [address] [place] [address], [address], with f inal interpretation and frozen section analysis at the indicated laboratory. Date Collected: 06/12/10 ? Alejandro e Received: ??06/13/10 Date Completed: 06/14/10 11:38 ?? Reques t: [phone] Jeri Vivar MD [facility] Organization Address City/State/ZIP Code Phon e Number [facility] [place] [address]75 [facility] [address] [place] [address] LABORATORY documented in this encounter Visit Diagnoses Not on filedocumented in this encounter Care Teams Concessionist Relationship Specialty Start Date End Date Amor Montgomery MD PCP - General 09/24/01 05/05/13 [facility] [address] [place] [address] Nissa Cassidy DO PCP - General Internal Medicine 05/06/13 09/30/[address] [place] [address] Harriet Haley MD PCP - General Physician Lift Driver 10/01/15 [facility] [address] [place] [address] documented as of this encounter
--- OUTSIDE RECORDS SUMMARY | 2022-07-15 06:43 | XMS_ITS | Encounter Summary ---
:1965 Author Organization [place] Address [address] [place] [address]. [place] [address] Care Team Providers Name Role Phone Harriet Haley MD Primary Care Provider [phone] Reason for Referral Consultation - Closed Specialty Diagnoses / Procedures Referred By Contact Refer red To Contact Orthopedics and Sports Diagnoses Pain of left lower extremity Liu Gates MD [facility] [address] [facility]?? [address] [place] [facility] [address] [place] [address] Phone: Fax: Referral ID Status Reason Start Date Expiration Date Visits Requ ested Visits Authorized [id number] Closed 05/08/2016 05/08/2017 1 1 Reason for Visit Reason Comments Urgent Care Foot Injury Encounter Details Date Type Department Care Team Description 05/08/2016 Office Visit [facility] Liu Gates, Pain o f left lower Urgent Care Shaan kelly MD extremity (Primary Dx) [address] [facility] [address] [place] [address] [phone] Social History Tobacco Use Types Packs/Day Years [...] boot on left foot. Was seen at [facility] urgent care last Thursday. Taking [...] fractures and continuing pain Liu Gates MD [facility] documented in this encounter [...] BP completed using cuff size: mamadou Mohan COUNTY TAX ASSESSOR documented in this encounter Plan of Treatment [...] extremity documented in this encounter Care Teams Representative Relationship Specialty Start Date End Date Harriet Haley MD PCP - General Physician Shrimping Boat Captain 10/01/15 [facility] [address] [place] [address] documented as of this encounter
--- OUTSIDE RECORDS SUMMARY | 2022-07-15 06:43 | XMS_ITS | Encounter Summary ---
:1965 Author Organization [place] Address [address] [place] [address]. [place] [address] Care Team Providers Name Role Phone Ryan Cassidylyric Branch Primary Care Provider [phone] Reason for Visit Reason Comments Abdominal Pain Encounter Details Date Type Department Care Team Description 02/14/2015 [facility] Radha Levine MD Abdominal pain Hospital Emergency [address] [facility] [place] [address] [place] [address] [place] [id number] [phone] Social History Tobacco Use Types Packs/Day Years [...] her behalf by Kunal Rios, a trained emergency medical dispatcher. The creation of this record is based [...] DE SAC; Surgeon: Lizzie Duron MD; Location: [facility]; Service: CURRENT MEDICATIONS Current Outpatient Rx Name [...] Ketones, UA Negative Negative, 60 mg/dL Specific [place], UA 1.005 1.001-1.030 Blood, UA Negative Negative [...] accurate and complete. Jaclyn Keenan PA-C 02/14/15 7002 Radha Babb MD - 02/14/2015 5:19 PM [...] symtpoms. Author: MD Radha Quintana MD 02/16/15 2495 documented in this encounter Plan of Treatment [...] CONCLUSION: 1. No acute abnormality apparent. Jaclyn K Pilot PA-C IMG CT ORDERABLES documented in this encounter Visit Diagnoses Diagnosis Abdominal pain Abdominal pain, unspecified site documented in this encounter Care Teams Computer Network Support Specialist Relationship Specialty Start Date End Date Nissa Cassidy DO PCP - General Internal Medicine 05/06/13 09/30/[address] [address] documented as of this encounter
--- OUTSIDE RECORDS SUMMARY | 2022-07-15 06:43 | XMS_ITS | Encounter Summary ---
:1965 Author Organization [place] Address [address] [place] [address] Care Team Providers Name Role Phone Nissa Cassidy DO Primary Care Provider [phone] Harriet Haley MD Primary Care Provider [phone] Encounter Details Date Type Department Care Team Description 02/07/2015 [facility]est[facility] - [facility] [place] [place] [address] [place] [address] [place], [place] [phone] [address] Social History Tobacco Use Types Packs/Day [...] on filedocumented in this encounter Care Teams Cell Builder Relationship Specialty Start Date End Date Nissa Cassidy DO PCP - General Internal Medicine 05/06/13 09/30/[address] [address] Harriet Haley MD PCP - General Physician Retail Parts Pro 10/01/15 [facility] [address] [place] [address] documented as of this encounter
--- OUTSIDE RECORDS SUMMARY | 2022-07-15 06:43 | XMS_ITS | Encounter Summary ---
:1965 Author Organization [place] Address [address] [place] [address] Care Team Providers Name Role Phone Harriet Haley MD Primary Care Provider [phone] Encounter Details Date Type Department Care Team Description 11/05/2015 Surgery - [facility] Marco Antonio Cid MD [facility] UROLOGIC [place] [facility] [address] [address] [place] [address] (Wo rk) Social History Tobacco [...] on filedocumented in this encounter Care Teams Cut Filer Relationship Specialty Start Date End Date Harriet Haley MD PCP - General Physician Technical Publications Manager 10/01/15 [facility] [address] [facility] [id number] documented as of this encounter
--- OUTSIDE RECORDS SUMMARY | 2022-07-15 06:43 | XMS_ITS | Encounter Summary ---
:1965 Author Organization [facility] Address [address] [place] [address] Care Team Providers Name Role Phone Harriet Haley MD Primary Care Provider [phone] Reason for Referral Rehab Therapy Physical Therapy Specialty Diagnoses / Procedures Referred By Contact Refer red To Contact [facility] [address] [place] [address] Referral ID Status Reason Start Date Expiration Date Visits Requ ested Visits Authorized SERVICE MANAGER Specialty Diagnoses / Procedures Referred By Contact Refer red To Contact Arley Matute DO [address] [place] [address] Referral ID Status Reason Start Date Expiration Date Visits Requ ested Visits Authorized SERVICE MANAGER Reason for Visit Reason Comments Other Multiple Complaints Auth/Cert Specialty Diagnoses / Procedures Referred By Contact Refer red To Contact Diagnoses Weakness of both lower extremities Bilateral low back pain without sciatica Acute low back pain Rh 5 [facility] [address] [place], [place] [address] Phone: Fax: Referral ID Status Reason Start Date Expiration Date Visits Requ ested Visits Authorized [id number] 10/02/2015 10/01/2016 1 1 Encounter Details Date Type Department Care Team Description 10/01/2015 - Emergency [facility] [place], Andrea D avid, RELATIONSHIP MANAGER ADVERTISING STRATEGIST [facility] [address] [place] [address] Acute low back pain (Primary Dx); 10/03/2015 [place] [address] Medical YoungAamir MD [address] [place] [address] Bilateral low back pain without sciatica ; Surgical Weakness of both lower extre mities; [address] Constipation, unspecified co nstipation type; [place], [place] Low back pain potentially associated with [...] Comments Blood Pressure 131/66 10/03/2015 3:30 PM HVAC SERVICE MANAGER Pulse 94 10/03/2015 3:30 PM HVAC SERVICE MANAGER Temperature 36.5 ??C (97.7 ??F) 10/03/2015 3:30 PM HVAC SERVICE MANAGER Respiratory Rate 16 10/03/2015 3:30 PM HVAC SERVICE MANAGER Oxygen Saturation 94% 10/03/2015 3:30 PM HVAC SERVICE MANAGER Inhaled Oxygen Concentration - - Weight 106.6 kg (235 lb) 10/01/2015 11:13 AM HVAC SERVICE MANAGER Height 172.7 cm (5' 7.99) 10/01/2015 11:13 AM HVAC SERVICE MANAGER Body Mass Index 35.74 10/01/2015 11:13 AM HVAC SERVICE MANAGER documented in this encounter Discharge Summaries Arley Matute DO - 10/03/2015 3:[address] [facility] Discharge Summary Hospitalist Date of Admission: 10/01/2015 Date of Discharge: 10/03/2015 6:10 PM Provider: Arley Matute DO [facility] Date of Service (when I last saw [...] IP CONSULT Time Spent on This Encounter I, Arley Matute, personally saw the patient today and spent [...] 10 CR 0.76 GFRESTIMATED 81 GFRESTBLACK >90African [place] GFR Calc DRE 8.9 Recent Labs Lab [...] steroid injection with no initial pain relief. skilled nursing results pending. JOSE WELLS PA-C XR Epidural [...] steroid injection with no initial pain relief. termite helper results pending. JOSE WELLS PA-C SERVICE MANAGER documented in this encounter Medications at Time [...] PM CST OBSERVATION patient END time: 1800 Yvrose Cheng MD - 10/03/2015 12:11 PM CST Neurological [...] for procedural details. Provider name: Jose Wells Angle Furnaceman(s):None SERVICE MANAGER Arley Matute DO - 10/03/2015 9:42 AM CST Feeling better though still back pain with some radiation down left leg when up. EMG pending. UYE pending today. Exam stable. I will reassess [...] functions indep at baseline, works as a [employer]. (R) Functional Level Prior (R) Ambulation 0-->independent [...] in Pain Yes, see Vital Sign flowsheet (5/10 localized L3-4 back pain with standing/gait) Integumentary/Edema [...] Evaluation Time Total Evaluation Time (Minutes) 15 SERVICE MANAGER Arley Matute DO - 10/02/2015 3:[address] [facility] Hospitalist Progress Note Name: Mariusz Griffiths Provider: Arley Matute DO [facility] Date of Service: 10/02/2015 Assessment and Plan [...] 10 CR 0.76 GFRESTIMATED 81 GFRESTBLACK >90African [place] GFR Calc DRE 8.9 No results found for this or any previous visit (from the past 24 hour(s)). SERVICE MANAGER Praveen Machado - 10/02/2015 2:52 PM CST 10/02/15 1400 Visit Information Visit Made By Staff Health Sciences Department Chair Type of Visit Initial Visited Patient Interventions Plan of Care Review With interdisciplinary team Basic Spiritual Interventions Assessment of spiritual needs/resources;Reflective conversation;Prayer;Facilitating connection with other support resources Advanced Assessments/Interventions Presenting Concerns/Issues Spiritual/judaism/emotional support;Grief and adjustment issues SPIRITUAL HEALTH SERVICES Progress Note [facility] Med. Surg. 5 DATA: Visited pt per her request for kalsominer support. Pt reported that she is being [...] her therapist among those within her support [place]. She asked for grief support [place] in the area. INTERVENTION: Offered reflective conversation and grief support inviting pt to express her thoughts and feelings about her losses. Explored with her how she might express her anger to God through the lament psalms, offered prayer, and provided contact information for three grief support groups in the area. OUTCOME: Pt shared her memories of Gene, reflected on his personality, and questioned why he just as hislife was coming together. She identified significant people within her support network, expressed interest in the lament psalms and grief support groups, and welcomed prayer. PLAN: Pt expects to discharge tomorrow; I and other chaplains remain available per pt's request. Praveen Machado M.Div., [facility] Staff Health Sciences Department Chair Pager [phone] SERVICE MANAGER documented in this encounter H&P Notes Olga Lidia Dumont PA-C - 10/01/2015 5:11 PM CST [facility] Outpatient / Observation Unit History and Physical [...] Fibromyalgia - resume home meds Plan: 1. [place] to Observation 2. Neuro checks Q4 and [...] 10 CR 0.76 GFRESTIMATED 81 GFRESTBLACK >90African [place] GFR Calc DRE 8.9 Recent Labs Lab [...] canal stenosis. MD Olga Lidia HARRIS PA-C SERVICE MANAGER Associated attestation - Arley Matute DO - 10/01/2015 9:49 PM HVAC SERVICE MANAGER Physician Attestation IArley, saw and evaluated Mariusz [...] here we may need to contact her meat selector. For now plan pain control and neuro [...] some time ago, unclear when at [facility], the results of which we do not have. She has been treated by her meat selector for spondylosing ankylosis and has had a [...] ambulated further because of concern of risk. Wmehun-kq-tcum was normal. LABORATORY: Her labs included normal [...] EM#[id number] Name: MARIUSZ GRIFFITHS MRN: [id number] Account: [id number] : 1965 Consult Date: 10/02/2015 Document: [id number] SERVICE MANAGER Kunal Villarreal PA-C - 10/02/2015 12:17 PM CSTAssociated Order(s): SPINE SURGERY ADULT IP CONSULT [facility] Spine Consultation Mariusz Griffiths Age: [...] cervical radiculopathy and underwent an acdf at [facility] in 2004. She did well post op. [...] ALSO Family history reviewed and updated in [facility] Immunizations: Immunization History Administered Date(s) Administered [...] labs and imaging. Kunal Villarreal PA-C, LEEANNE SERVICE MANAGER documented in this encounter ED Notes Lizzy Montes RN - 10/01/2015 1:05 PM CST Pt concerned that her BP is elevated. Pt was assured we will continue to monitor is while she is here. Will address with Florencia. SERVICE MANAGER Andrea Don APRN CNP - 10/01/2015 11:21 [...] Medications: Duloxetine Levothyroxine sodium Gabapentin Fioricet Lorazepam [place] Effexor Zyban Past Medical History: Migraine Herpes [...] an appointment with later this week at [facility] ([id number]) I spoke with Dr. Negro chief engineer production for neurology (163) I rechecked and updated the patient (1706) I spoke with PATRIC Dumont of the [...] versus waiting for her scheduled appointment with [facility] Neurology on Thursday. The patient was [...] Weakness of both lower extremities M62.81 Roxana Hanna 10/01/2015 [facility] EMERGENCY DEPARTMENT I, Roxana Hanna, am serving as a scribe at 11:21 AM on 10/01/2015 to document services personally performed by Andrea Don APRN based on my observations and the provider's statements to me. Andrea Don APRN ADVERTISING STRATEGIST 10/01/15 1746 SERVICE MANAGER Gertrude Herman RN - 10/01/2015 11:15 AM [...] urinary symptoms. Pt's home meds: see epic SERVICE MANAGER documented in this encounter Miscellaneous Notes Plan [...] were addressed with patient. Patient's providing transport. SERVICE MANAGER Plan of Care - Gerardo Mccurdy, PT [...] goal(s). See goals on Care Plan in [facility] electronic health record for goal details. Goals partially met. Barriers to achieving goals: discharge from facility. Therapy recommendation(s): Continued therapy is recommended. Rationale/Recommendations: OP PT to imrove strength, mobility, andpain management.. SERVICE MANAGER Plan of Care - Hannah Bermudez RN - 10/03/2015 1:45 PM CST Problem: Individualization Goal: Patient Preferences Outcome: Improving Returned from injection -- requested oxy x1 on arrival ---- up to bathroom Voiding without problems-- appetite good resting comfortable between checks SERVICE MANAGER Plan of Care - Rina Josue RN [...] narcotics/constipation. Uneventful night. Slept well between cares. SERVICE MANAGER Plan of Care - Vanessa Sanabria RN - 10/02/2015 10:17 PM CST Problem: Goal Outcome Summary Goal: Goal Outcome Summary Outcome: No Change VSS, back pain 3-01/17, given Atarax x1 + oxycodone x2. Pt reports significant pain relief with meds + heat. Neuros intact, denies blurred vision. Tremors to BLE with marked increase in shakiness to LLE. CMS + pulses intact. EMG this evening, awaiting results. Scheduled for YUE tomorrow. Ambulated in halls with + cane. SERVICE MANAGER Plan of Care - Gerardo Mccurdy, PT [...] continue periodically and attempt gait afterward with [facility] staff. PT will check back tomorrow. Recommend d/c home with spouse support and OP PT, may benefit fromcane with gait pending improvement in pain and unsteadiness. SERVICE MANAGER Utilization Review - Darshan Marley DO - 10/02/2015 3:[address] [facility] Admission Status; Concurrent Review Determination [...] 49 year old female presented to the [facility] ED yesterday with tremor and [...] Marley DO MPH Physician Advisor Utilization Review [employer]. SERVICE MANAGER Plan of Care - Jaci Pearce RN [...] Consults: Neuro and spine. PT. Disposition: TBD SERVICE MANAGER Plan of Care - Rina Josue RN [...] updated & understand POC. Voiding well. VSS. SERVICE MANAGER Plan of Care - Meseret Nieto RN - 10/01/2015 10:50 PM CST Problem: Goal Outcome Summary Goal: Goal Outcome Summary Outcome: No Change VSS. Alert and Cameron. Up with SB assist to bedside commode. Pain 5-6/10 in back controlled with Oxy, Tylenol and atarax. neuro checks Q4 intact. But weak dorsi and plantar flexion. SERVICE MANAGER Pharmacy-Admission Medication History - My Darshan [facility] - 10/01/2015 5:38 PM HVAC SERVICE MANAGER Admission medication history interview status for this patient is complete. See [facility] admission navigator for allergy information, prior to admission medications and immunization status. Medication history interview source(s):Patient Medication history resources (including written lists, pill bottles, clinic record):None Changes made to CLIENT EXPERIENCE CONSULTANT medication list: Added: Lyrica, Calan SR, Chantix, cymbalta, Synthroid Deleted: effexor, fiorcet, [...] daily 10/01/2015 at AM Yes Reported, Patient SERVICE MANAGER documented in this encounter Plan of [...] 10:47 Results for this TRANSFORAMINAL INJ AM HVAC SERVICE MANAGER procedure are in RIGHT the results section. XR LUMBAR SACRAL Routine 10/03/2015 10:33 Results for this TRANSFORMINAL INJ LEFT AM HVAC SERVICE MANAGER proce dure are in the results section. INR Routine 10/03/2015 6:55 AM Bilateral low back Res ults for this HVAC SERVICE MANAGER pain without procedure are i n sciatica the results section. MR LUMBAR SPINE W/O STAT 10/01/2015 2:45 PM Re sults for this CONTRAST HVAC SERVICE MANAGER procedure are i n the results section. URINE MACROSCOPIC WITH Routine 10/01/2015 12:13 R esults for this REFLEX TO MICRO PM HVAC SERVICE MANAGER procedure ar e in the results section. BASIC METABOLIC PANEL STAT 10/01/2015 11:55 Re sults for this AM HVAC SERVICE MANAGER procedure are i n the results section. CBC WITH PLATELETS STAT 10/01/2015 11:55 Resul ts for this AM HVAC SERVICE MANAGER procedure are i n the results section. documented in this encounter Results XR Lumbar Transforaminal Inj Single (10/03/2015 10:47 AM HVAC SERVICE MANAGER) Anatomical Region Laterality Modality Spine Radio Fluoroscopy Specimen (Source) Anatomical Location Collection Method / Collectio n Time Received Time / Laterality Volume Impressions 10/03/2015 10:59 AM HVAC SERVICE MANAGER Impression: ??Technically successful transforaminal lumbar epidural steroid injection with no initial pain r radu. termite helper results pending. JOSE WELLS PA-C Narrative 10/03/2015 10:59 AM HVAC SERVICE MANAGER XR LUMBAR TRANSFORAMINAL ADDITIONAL, XR LUMBAR TRANSFORAMINAL INJ SINGLE ? 10/03/2015 10:33 AM ?? History: ??Degenerative disc disease. Re quest for bilateral L3-4 transforaminal epidural steroid injectio ns. Procedure: ??The risks (bleeding, infect ion, reaction to contrast and medications) and benefits of the procedu re were explained to the patient and consent was obtained. ??Bruno michelle sterile technique and fluoroscopic guidance a #22 [...] Epidural Transforaminal Lumbar Addl (10/03/2015 10:33 AM HVAC SERVICE MANAGER) Anatomical Region Laterality Modality Spine Radio Fluoroscopy Specimen (Source) Anatomical Location Collection Method / Collectio n Time Received Time / Laterality Volume Impressions 10/03/2015 10:59 AM HVAC SERVICE MANAGER Impression: ??Technically successful transforaminal lumbar epidural steroid injection with no initial pain r elief. termite helper results pending. JOSE WELLS PA-C Narrative 10/03/2015 10:59 AM HVAC SERVICE MANAGER XR LUMBAR TRANSFORAMINAL ADDITIONAL, XR LUMBAR TRANSFORAMINAL INJ SINGLE ? 10/03/2015 10:33 AM ?? History: ??Degenerative disc disease. Re quest for bilateral L3-4 transforaminal epidural steroid injectio ns. Procedure: ??The risks (bleeding, infect ion, reaction to contrast and medications) and benefits of the procedu re were explained to the patient and consent was obtained. ??Bruno michelle sterile technique and fluoroscopic guidance a #22 [...] skilled nursing results pending. JOSE WELLS PA-C Aamir Neville MD IMG DIAGNOSTIC IMAGING ORDER NATALY INR (10/03/2015 6:55 AM HVAC SERVICE MANAGER) athologist Signature INR 0.98 0.86 - 1.14 [facility] Specimen Anatomical Collection Method Collection Time Receive d Time (Source) Location / / Volume Laterality Blood specimen 10/03/2015 6:55 AM 016 7:12 (specimen) HVAC SERVICE MANAGER AM HVAC SERVICE MANAGER Kunal Villarreal PA-C LAB - BLOOD ORDERABLES Performing Organization Address City/State/ZIP Code Phon e Number [place] [address] [address] [place] [address] [facility] [address] [phone] Lumbar spine MRI w/o contrast (10/01/2015 2:45 PM HVAC SERVICE MANAGER) Anatomical Region Laterality Modality Spine, SUBRAD MR MSK, UMP MR SPINE Magne tic Resonance Specimen (Source) Anatomical Location Collection Method / Collectio n Time Received Time / Laterality Volume Impressions 10/01/2015 3:07 PM HVAC SERVICE MANAGER IMPRESSION: At L3-L4 there is a small left central disc extrusion resulting in mild central canal stenosis . YEMI COATES MD Narrative 10/01/2015 3:07 PM HVAC SERVICE MANAGER MRI LUMBAR SPINE WITHOUT CONTRAST ?? 10/01/2015 [...] stenosis . YEMI COATES MD Andrea Don RELATIONSHIP MANAGER ADVERTISING STRATEGIST IMG MRI ORDERABLES UA reflex to Microscopic (10/01/2015 12:13 PM HVAC SERVICE MANAGER) [facility] Method Time Signature Color Urine Straw [facility] Appearance Urine Clear [facility] Glucose Urine Negative NEG mg/dL [facility] Bilirubin Urine Negative NEG [facility] Ketones Urine Negative NEG mg/dL [facility] Specific Mio 1.003 1.003 - [employer] Urine 1.035 [facility] Blood Urine Negative NEG [facility] pH Urine 6.5 5.0 - 7.0 [employer] pH [facility] Protein Albumin Negative NEG mg/dL [facility] Urobilinogen Normal 0.0 - 2.0 [employer] mg/dL mg/dL [facility] Nitrite Urine Negative NEG [facility] Leukocyte Negative NEG [employer] Esterase Urine [facility] Source Midstream [facility] Specimen Anatomical Collection Method Collection Time Receive d Time (Source) Location / / Volume Laterality Urine specimen URINE SPECIMEN 10/01/2015 12:13 016 (specimen) OBTAINED BY CLEAN PM HVAC SERVICE MANAGER 12:[address] CATCH PROCEDURE / Unknown Andrea Don APRN ADVERTISING STRATEGIST LAB - URINE ORDERABLES Performing Organization Address City/State/ZIP Code Phon robin Palmer [facility] [address] [place], [place] [address] [facility] [address] [place], [place] [address], [facility] [phone] (ABNORMAL) Basic metabolic panel (10/01/2015 11:55 AM HVAC SERVICE MANAGER) athologist Signature Sodium 136 133 - 144 [facility] mmol/L [facility] Potassium 4.5 3.4 - 5.3 [facility] mmol/L [facility] Comment: Specimen slightly hemolyzed, po tassium may be falsely elevated Chloride 104 94 - 109 mmol/L [facility] Carbon Dioxide 24 20 - 32 mmol/L [facility] Anion Gap 8 3 - 14 mmol/L [facility] Glucose 113 (H) 70 - 99 mg/dL [facility] Urea Nitrogen 10 7 - 30 mg/dL [facility] Creatinine 0.76 0.52 - 1.04 mg/dL [facility] GFR Estimate 81 >60 mL/min/1.7m2 [facility] Comment: Non GFR Calc GFR Estimate If Black >90 >60 mL/min/1.7m2 F [facility] GFR Calc [facility]OS[facility] IT[facility] Calcium 8.9 8.5 - 10.1 mg/dL [facility] Specimen Anatomical Collection Method Collection Time Receive d Time (Source) Location / / Volume Laterality Blood specimen 10/01/2015 11:55 6 (specimen) AM HVAC SERVICE MANAGER 12:24 PM HVAC SERVICE MANAGER Andrea Don APRN ADVERTISING STRATEGIST LAB - BLOOD ORDERABLES Performing Organization Address City/State/ZIP Code Phon robin Palmer [facility] [address] [place], [place] [address] [facility] [address] [place], [place] [address], [facility] [phone] CBC (platelets, no diff) (10/01/2015 11:55 AM HVAC SERVICE MANAGER) P athologist Signature WBC 9.5 4.0 - 11.0 [employer] 10e9/L [facility] RBC Count 4.32 3.8 - 5.2 [employer] 10e12/L [facility] Hemoglobin 13.0 11.7 - [employer] 15.7 g/dL [facility] Hematocrit 37.8 35.0 - [employer] 47.0 % [facility] MCV 88 78 - 100 [employer] [employer] fl [facility] MCH 30.1 26.5 - [employer] 33.0 pg [facility] MCHC 34.4 31.5 - [employer] 36.5 g/dL [facility] RDW 14.6 10.0 - [employer] 15.0 % [facility] Platelet Count 269 150 - 450 [address] [facility] Specimen Anatomical Collection Method Collection Time Receive d Time (Source) Location / / Volume Laterality Blood specimen 10/01/2015 11:55 6 (specimen) AM HVAC SERVICE MANAGER 12:24 PM HVAC SERVICE MANAGER Andrea Don APRN ADVERTISING STRATEGIST LAB - BLOOD ORDERABLES Performing Organization Address City/State/ZIP Code Phon e Number [place] [address] [place] [address] [phone] documented in this encounter Visit Diagnoses Diagnosis [...] 1,000 mLs 2000 mL/hr Intravenous, 1,000 mL, HVAC SERVICE MANAGER ONCE, at 2,000 mL/hr, Administer over 30 Minutes, On Thu10/01/15 at 1138, For 1 dose acetaminophen (TYLENOL) tablet 1,000 mg Given 10/03/2015 3:57 PM HVAC SERVICE MANAGER 1,000 mg 1,000 mg, Oral, 3 TIMES DAILY, First dose on Thu10/01/15 at 2200, Alternate ibuprofen (if ordered) with acetaminophen. Maximum acetaminophen dose from all sources = 75 mg/kg/day not to exceed 4 gram Given 10/03/2015 8:10 AM HVAC SERVICE MANAGER 1,000 mg Given 10/02/2015 9:40 PM HVAC SERVICE MANAGER 1,000 mg dexamethasone (DECADRON) 10 MG/ML inject ion Starting on Thu10/03/15 at 1000, For 1 dose, NUNU MCCOY CKI: cabinet override dexamethasone (DECADRON) injection 30 mg Given 10/03/2015 10:21 AM HVAC SERVICE MANAGER 10 mg 30 mg, Intravenous, EVERY 6 HOURS, First dose on Thu10/03/15 at 1030 dexamethasone (DECADRON) injection 30 mg Given 10/03/2015 10:44 AM HVAC SERVICE MANAGER 30 mg 30 mg, INTRA-ARTICULAR, ONCE, On Thu10/03/15 at 1045, For 1 dose, Given by Jose Simental DULoxetine (CYMBALTA) DR capsule 120 mg Given 10/02/2015 9:39 PM HVAC SERVICE MANAGER 120 mg 120 mg, Oral, EVERY EVENING, First dose on Thu10/01/15 at 2045 Given 10/01/2015 9:16 PM HVAC SERVICE MANAGER 120 mg hydrOXYzine (ATARAX) tablet 25 mg Given 10/02/2015 9:39 PM HVAC SERVICE MANAGER 25 mg 25 mg, Oral, EVERY 6 HOURS PRN, other, adjuvant pain, Starting on Thu10/01/15 at 1821 Given 10/02/2015 12:22 PM HVAC SERVICE MANAGER 25 mg Given 10/02/2015 4:41 AM HVAC SERVICE MANAGER 25 mg hydrOXYzine (ATARAX) tablet 50 mg Given 10/01/2015 9:16 PM HVAC SERVICE MANAGER 50 mg 50 mg, Oral, EVERY 6 HOURS PRN, other, adjuvant pain, Starting on Thu10/01/15 at 1821 iopamidol (ISOVUE-M 200) 41% Given by Renetta 10/03/2015 10:34 AM HVAC SERVICE MANAGER 3 mLs solution 10 mL 10 mL, EPIDURAL, ONCE, On Thu10/03/15 at 1045, For 1 dose ketorolac (TORADOL) injection 30 mg Given 10/01/2015 12:00 PM HVAC SERVICE MANAGER 30 mg 30 mg, Intravenous, ONCE, On Thu10/01/15 at 1138, For 1 dose levothyroxine (SYNTHROID, LEVOTHROID) tablet Given 8:10 AM HVAC SERVICE MANAGER 88 mcg 88 mcg 88 mcg, Oral, DAILY, First dose on Thu10/02/15 at 0900 Given 10/02/2015 9:02 AM HVAC SERVICE MANAGER 88 mcg lidocaine (PF) (XYLOCAINE) 1 % injection Starting on Thu10/03/15 at 1000, For 1 dose, NUNU MCCOY CKI: cabinet override Lidocaine 1 % injection 10 mL Given 10/03/2015 10:22 AM HVAC SERVICE MANAGER 10 mLs 10 mL, Intradermal, ONCE, On Thu10/03/15 at 1030, For 1 dose Lidocaine 1 % injection 5 mL Given 10/03/2015 10:23 AM HVAC SERVICE MANAGER 5 mLs 5 mL, Intradermal, ONCE, On Thu10/03/15 at 1030, For 1 dose oxyCODONE (ROXICODONE) immediate release Given 10/03/2015 3:57 P M HVAC SERVICE MANAGER 10 mg tablet 5-10 mg 5-10 mg, Oral, EVERY 3 HOURS PRN, moderate to severe pain, Starting on Thu10/01/15 at 1821, If age greater than 65 use lower dose for first time use. Given 10/03/2015 10:43 AM HVAC SERVICE MANAGER 10 mg Given 10/03/2015 6:27 AM HVAC SERVICE MANAGER 10 mg pregabalin (LYRICA) capsule 300 mg Given 10/03/2015 8:11 AM HVAC SERVICE MANAGER 300 mg 300 mg, Oral, 2 TIMES DAILY, First dose on Thu10/01/15 at 2100 Given 10/02/2015 9:39 PM HVAC SERVICE MANAGER 300 mg Given 10/02/2015 9:01 AM HVAC SERVICE MANAGER 300 mg senna-docusate (SENOKOT-S;PERICOLACE) Given 10/03/2015 8:10 [...] flush 3 mL Given 10/02/2015 6:13 PM HVAC SERVICE MANAGER 3 mLs 3 mL, Intracatheter, EVERY 8 HOURS, First dose on Thu10/01/15 at 1830, And Q1H PRN, to lock peripheral IV dormant line. Given 10/02/2015 9:03 AM HVAC SERVICE MANAGER 3 mLs Given 10/02/2015 4:42 AM HVAC SERVICE MANAGER 3 mLs traMADol (ULTRAM) tablet 50 mg Given 10/01/2015 2:47 PM HVAC SERVICE MANAGER 50 mg 50 mg, Oral, ONCE, On Thu10/01/15 at 1410, For 1 dose varenicline (CHANTIX) tablet 1 mg Given 10/03/2015 8:10 AM HVAC SERVICE MANAGER 1 mg 1 mg, Oral, 2 TIMES DAILY, First dose on Thu10/01/15 at 2100 Given 10/02/2015 9:40 PM HVAC SERVICE MANAGER 1 mg Given 10/02/2015 9:02 AM HVAC SERVICE MANAGER 1 mg verapamil (CALAN-SR) CR tablet 120 mg Given 10/03/2015 8:11 AM HVAC SERVICE MANAGER 120 mg 120 mg, Oral, EVERY MORNING, First dose on Thu10/02/15 at 0900 Given 10/02/2015 9:01 AM HVAC SERVICE MANAGER 120 mg documented in this encounter Active and Recently Administered Medications Times are shown in HVAC SERVICE MANAGER. Scheduled Medication Order 10/01/2015 10/02/2015 10/03/2015 0.9% sodium chloride BOLUS (COMPLETED) 1159 (New Bag - Provider: Lizzy Montes RN)1657 (Stopped - Provider: Luke Rodriguez RN) Intravenous, 1,000 mL, ONCE, at 2,000 mL [...] (SYNTHROID, LEVOTHROID) tablet 88 mcg (CANCELE D) 09 (Given - Provider: Jaci Pearce RN) 0810 [...] dose pregabalin (LYRICA) capsule 300 mg (CANCELED) 2129 (Gi sonny - Provider: Marlyn Negron LPN) 09 (Given - Provider: Kemal Powell)213 (Given - Provider: Gertrude Ghosh LPN) 0811 (Given - Provider: Richelle Rebollar LPN) 300 mg, Oral, 2 TIMES DAILY, First dose on Thu10/01/15 at 2100 sodium chloride (PF) 0.9% PF flush 3 mL (CANCELED) 190 3 (Given - Provider: Meseret Nieto RN) 0442 (Given - Provider: Rina sanchez RN)0903 (Given - Provider: Jaci Pearce RN)0936 (Canceled Entry - Provider: Jaci Pearce RN)1813 (Given - Provider: Vanessa Sanabria, BRAYDON) 0628 (Not Given - Provider: Rina Josue RN - Reason: Patient sleeping)1258 (Canceled Entry - Provider: Richelle Rebollar LPN) 3 mL, Intracatheter, EVERY 8 HOURS, Firs t dose on Thu10/01/15 at 1830, And Q1H PRN, to lock peripheral IV dormant line. traMADol (ULTRAM) tablet 50 mg (COMPLETED) 144 (Given - Provider: Lizzy Montes RN) 50 mg, Oral, ONCE, Thu10/01/15 at 1410, For 1 dose varenicline (CHANTIX) tablet 1 mg (CANCELED) 2129 (Giv en - Provider: Marlyn Negron LPN) 09 (Given - Provider: Kemal Powell)214 (Given - Provider: Gertrude Ghosh LPN) 0810 (Given - Provider: Richelle Rebollar LPN) 1 mg, Oral, 2 TIMES DAILY, First dose on Thu10/01/15 at 2100 verapamil (CALAN-SR) CR tablet 120 mg (CANCELED) 09 (Given - Provider: Jaci Pearce RN) 0811 (Given - Provider: Richelle Rebollar LPN) 120 mg, Oral, EVERY MORNING, First dose on Thu10/02/15 at 0900 PRN Medication Order 10/01/2015 10/02/2015 10/03/2015 hydrOXYzine (ATARAX) tablet 25 mg (CANCELED) 2115 (See Alternative - Provider: Marlyn Negron LPN) 0441 (Given - Provider: Rina sanchez RN)122 (Given - Provider: Jacy Gutierres LPN)2138 (Given - Provider: Gertrude Ghosh LPN) 25 mg, Oral, EVERY 6 HOURS PRN, other, a djuvant pain, Starting 10/01/15 at 1821 hydrOXYzine (ATARAX) tablet 50 mg (CANCELED) 2115 (Giv en - Provider: Marlyn Negron LPN) 0441 (See Alternative - Provider: Kalpesh Josue RN)122 [...] (ROXICODONE) immediate release tablet 5-10 m g 190 (Given - Provider: Meseret Nieto RN)2249 (Given - Provider: Marlyn Negron LPN) 044 (Given - Provider: Rina Josue RN)122 (Given - Provider: Jacy Gutierres LPN)1635 (Given - Provider: Gertrude Ghosh LPN)2138 (Given - Provider: Gertrude Ghosh LPN) 0627 [...] protocol. documented in this encounter Care Teams Licensed Nurse Practitioner Relationship Specialty Start Date End Date Harriet Haley MD PCP - General Physician Angle Furnaceman 10/01/15 [facility] [address] [place] [address] documented as of this encounter
--- OUTSIDE RECORDS SUMMARY | 2022-07-15 06:43 | XMS_ITS | Encounter Summary ---
:1965 Author Organization [place] Address [address] [place] [address] Care Team Providers Name Role Phone KhanhNissa Primary Care Provider [phone] Reason for Visit Reason Comments Dental Pain Encounter Details Date Type Department Care Team Description 05/06/2013 Emergency [facility] Chad Hardy P ain in [facility] Emergency Dep t (Primary Dx) [address] [facility] EMERGENCY PHYSICIANS [facility] [address] [address] [facility] [phone] [place], [place] [address] (Wo rk) Social History [...] as possible. Diagnosis: 1. Upper jaw pain Amol Will, am serving as a scribe on 05/06/2013 at 3:56 AM to personally document services performed by Dr. Mijares based on my observations and the provider's statements to me. Amol Calle 05/06/2013 [facility] Chad Hardy MD 05/06/13 5[address] documented in this encounter Plan of Treatment Not on filedocumented as of this encounter Visit Diagnoses Diagnosis Pain in upper jaw - Primary Jaw pain documented in this encounter Active and Recently Administered Medications Care Teams Commercial Truck Driver Relationship Specialty Start Date End Date Nissa Cassidy DO PCP - General Internal Medicine 05/06/13 09/30/[address] [address] documented as of this encounter
--- OUTSIDE RECORDS SUMMARY | 2022-07-15 06:44 | XMS_ITS | Encounter Summary ---
:1965 Author Organization [place] Address [address] [place] [address] Care Team Providers Name Role Phone Amor Montgomery MD Primary Care Provider Reason for Visit Reason Comments Refill Request Encounter Details Date Type Department Care Team Description 06/28/2002 Telephone [facility], Refill Request Clinic Luly MONTILLA [address] [place] [address] [place], [place] [phone] (Wo rk) [address] [phone] Social History Tobacco Use Types Packs/Day Years Used Date Smoking Tobacco: Never Assessed Sex Assigned at Date Recorded Not on file documented as of this encounter Miscellaneous Notes Telephone Encounter - 06/28/2002 11:59 PM CLIENT ADMINISTRATOR >> CHERIE THOMPSON [facility] Jul 06, 2002 4:32 PM SAMPLES ARE STILL AT PHYSICIAN CODING SPECIALIST FOR PT TO DOWNSTREAM BIOMANUFACTURING TECHNICIAN. MESSAGE LEFT WITH A MAN AT HER PHONE # THAT DR. BERUMEN'S OFFICE CALLED AND SHE CAN DOWNSTREAM BIOMANUFACTURING TECHNICIAN HER SAMPLES AT OUR PHYSICIAN CODING SPECIALIST. >> DEVONTE ROCHA Gris Jun 30, 2002 1:06 PM Message left on answering machine for patient to call back regarding phone message, also samples of imitrex 50mg at desk assistant for her to try.. >> GUILHERME BERUMEN Gris Jun 30, 2002 12:08 PM can try Imitrex 50 mg 1 po at the onset of CONNER rpt q2hrly if CONNER persists ,do not exeed more than 4 tabs in 24 hr period.can have samples if available. >> CHERIE THOMPSON [facility] Jun 28, 2002 1:58 PM >> CALL [...] on filedocumented in this encounter Care Teams Dynamometer Tester Relationship Specialty Start Date End Date Amor Montgomery MD PCP - General 09/24/01 05/05/13 [facility] [address] [place] [address] documented as of this encounter
--- OUTSIDE RECORDS SUMMARY | 2022-07-15 06:44 | XMS_ITS | Encounter Summary ---
:1965 Author Organization [place] Address [address] [place] [address] Care Team Providers Name Role Phone Amor Montgomery MD Primary Care Provider Reason for Visit Reason Comments Consult Encounter Details Date Type Department Care Team Description 06/29/2003 Office Visit [facility] Amor Montgomery MYALG IA AND MYOSITIS NOS; Clinic Luly Hugo MD ACUTE URI NOS; [address] [employer] STOMACH FUNCTION DIS NEC; [address] SYSTEM DEPRESSIVE DISORDER NEC; [place], [place] [address] MIGRAINE NOS W/O MENTN INTRACTABLE [address] [place] [address] [phone] Social History Tobacco Use Types Packs/Day Years [...] Comments Blood Pressure 132/68 06/29/2003 3:30 PM SKATE BOARDER Pulse 72 06/29/2003 3:30 PM SKATE BOARDER Temperature - - Respiratory Rate 16 06/29/2003 3:30 PM SKATE BOARDER Oxygen Saturation - - Inhaled Oxygen Concentration - - Weight 80.7 kg (178 lb) 06/29/2003 3:30 PM SKATE BOARDER Height - - Body Mass Index 27.06 10/20/2002 1:00 PM SKATE BOARDER documented in this encounter Progress Notes 06/29/2003 3:30 PM SKATE BOARDER Acute problems: GERD, nausea now quite consistently [...] PM Myalgia And Results f or this SKATE BOARDER Myositis Nos procedure are in Acute Uri Nos the results section. HCL HELICOBACTER Routine 06/29/2003 3:59 PM Stomach Function R esults for this PYLORI BRE IGG SKATE BOARDER Dis Nec procedure are in the results section. HCL MONO TEST Routine 06/29/2003 3:59 PM Myalgia And Results for this SKATE BOARDER Myositis Nos procedure are in Acute Uri Nos the results section. HCL TSH Routine 06/29/2003 3:59 PM Myalgia And Results f or this SKATE BOARDER Myositis Nos procedure are in Acute Uri Nos the results section. HCL SED RATE (ESR) Routine 06/29/2003 3:59 PM Myalgia And Res ults for this SKATE BOARDER Myositis Nos procedure are in Acute Uri Nos the results section. documented in this encounter Results HELICOBACTER PYLORI BRE IGG (06/29/2003 3:59 PM SKATE BOARDER) Component Value Ref Test Analysis Performed At [facility] Range Method Time Signature Specimen Serum [facility] LAB Heliobacter No detectable IgG antibody t o Helicobacter pylori. If current infection is [place] pylori Antibody suspected, please submit a new specimen in 4 to 6 we eks. [facility] LAB Report status FINAL [id number] [facility] LAB Specimen Anatomical Collection Method Collection Time Receive d Time (Source) Location / / Volume Laterality 06/29/2003 3:59 PM 3 4:04 SKATE BOARDER PM SKATE BOARDER Amor Montgomery MD LABORATORY Performing Organization Address City/[facility]/ZIP Code Phon e Number [facility] [address] [place] [address] [facility] LAB (ABNORMAL) SED RATE, AUTO (06/29/2003 3:59 PM SKATE BOARDER) P athologist Signature Sed Rate 22 (H) 0 - 20 mm/h [facility] Specimen Anatomical Collection Method Collection Time Receive d Time (Source) Location / / Volume Laterality 06/29/2003 3:59 PM 3 4:04 SKATE BOARDER PM SKATE BOARDER Amor Montgomery MD LABORATORY Performing Organization Address City/[facility]/ZIP Code Phon e Number [facility] [address] [place], [place] [address] [address] [facility] WBC & DIFF (06/29/2003 3:59 PM SKATE BOARDER) [facility] gist Method Time Signature WBC 8.1 4.0 - [facility].0 [facility] 10e9/L CLINIC LAB Diff Method Automated [facility] LAB % Neutrophils 46 40 - 75 % [facility] % Lymphocytes 42 20 - 48 % [facility] % Monocytes 8 0 - 12 % [facility] % Eosinophils 2 0 - 6 % [facility] % Basophils 2 0 - 2 % [facility] Absolute 3.8 1.6 - 8.3 [facility] Neutrophil 10e9/L [facility] Absolute 3.4 0.8 - 5.3 [facility] Lymphocytes 10e9/L [facility] Absolute 0.6 0.0 - 1.3 [facility] Monocytes 10e9/L [facility] Absolute 0.2 0.0 - 0.7 [facility] Eosinophils 10e9/L [facility] Absolute 0.1 0.0 - 0.2 [place] Basophils 10e9/L [facility] Specimen Anatomical Collection Method Collection Time Receive d Time (Source) Location / / Volume Laterality 06/29/2003 3:59 PM 3 4:04 SKATE BOARDER PM SKATE BOARDER Amor Montgomery MD LABORATORY Performing Organization Address [facility] Phon e Number [place] [address] [place], [place] [address] [address] [facility] MONO HETEROPHILE (06/29/2003 3:59 PM SKATE BOARDER) Patholo gist Method Time Signature Mononucleosis Negative NEG [facility] LAB Specimen Anatomical Collection Method Collection Time Receive d Time (Source) Location / / Volume Laterality 06/29/2003 3:59 PM 3 4:04 SKATE BOARDER PM SKATE BOARDER Amor Montgomery MD LABORATORY Performing Organization Address [facility] Code Phon e Number [place] [address] [place], [place] [address] [address] [facility] (ABNORMAL) TSH- (06/29/2003 3:59 PM SKATE BOARDER) P athologist Signature TSH 7.20 (H) 0.4 - 5.0 [place] mU/L [facility] LAB Specimen Anatomical Collection Method Collection Time Receive d Time (Source) Location / / Volume Laterality 06/29/2003 3:59 PM 3 4:04 SKATE BOARDER PM SKATE BOARDER Amor Montgomery MD LABORATORY Performing Organization Address City[facility] Code Phon e Number [facility] [address] [place] [address] [facility] documented in this encounter Visit Diagnoses Diagnosis Myalgia and myositis, unspecified Mylagia and myositis, unspecified Acute upper respiratory infections of un specified site Dyspepsia and other specified disorders of function of stomach Depressive disorder, not elsewhere class ified Migraine, unspecified, without mention o f intractable migraine without mention of status migrainosus documented in this encounter Care Teams Coding Tech Relationship Specialty Start Date End Date Amor Montgomery MD PCP - General 09/24/01 05/05/13 [facility] [address] [place] [address] documented as of this encounter
--- OUTSIDE RECORDS SUMMARY | 2022-07-15 06:44 | XMS_ITS | Encounter Summary ---
:1965 Author Organization [place] Address [address] [place] [address] Care Team Providers Name Role Phone Amor Montgomery MD Primary Care Provider Encounter Details Date Type Department Care Team Description 04/18/2002 Allied Health/Nurse [facility] ERR ONEOUS Visit Clinic [facility] ENCOUNTER--DISREGARD [address] (Primary Dx) [address] [place] [address] Social History Tobacco Use Types Packs/Day Years Used Date Smoking Tobacco: Never Assessed Sex Assigned at Date Recorded Not on file documented as of this encounter Plan of Treatment Not on filedocumented as of this encounter Visit Diagnoses Diagnosis ERRONEOUS ENCOUNTER--DISREGARD - Primary documented in this encounter Care Teams Radio Division Officer Relationship Specialty Start Date End Date Amor Montgomery MD PCP - General 09/24/01 05/05/13 [facility] [address] [place] [address] documented as of this encounter
--- OUTSIDE RECORDS SUMMARY | 2022-07-15 06:44 | XMS_ITS | Encounter Summary ---
:1965 Author Organization [place] Address [address] [place] [address] Care Team Providers Name Role Phone Amor Montgomery MD Primary Care Provider Reason for Referral Office Workup No CT/MRI (Routine) - Closed Specialty Diagnoses / Procedures Referred By Contact Refer red To Contact Diagnoses Closed fracture of unspecified phalanx or phalanges of hand Amor Montgomery MD [facility] [address] [place] [address] [place] [address] Phone: [phone] Referral ID Status Reason Start Date Expiration Date Visits Requ ested Visits Authorized [id number] Closed 07/26/2004 02/06/2005 1 4 KEGGER Encounter Details Date Type Department Care Team Description 07/26/2004 Orders Only [facility] Amor Montgomery FX PH ALANX, HAND Clinic Luly Hugo MD NOS-CLOSE (Primary Dx) [address] [facility] [address] SYSTEM [place], [place] [address] [address] [place] [address] [phone] Social History Tobacco Use Types Packs/Day Years [...] Primary documented in this encounter Care Teams Photoengraving Sketch Maker Relationship Specialty Start Date End Date Amor Montgomery MD PCP - General 09/24/01 05/05/13 [facility] [address] [place] [id number] documented as of this encounter
--- OUTSIDE RECORDS SUMMARY | 2022-07-15 06:44 | XMS_ITS | Encounter Summary ---
:1965 Author Organization [facility] Address [address] [place] [address] Care Team Providers Name Role Phone Amor Montgomery MD Primary Care Provider Reason for Visit Reason Onset Date Comments Refill Request 05/28/2004 Encounter Details Date Type Department Care Team Description 05/28/2004 Refill [facility] Amor Tubbs MD Refill Request [facility] [address] [place] [address] [place] [address] [phone] Social History Tobacco Use Types Packs/Day Years [...] on filedocumented in this encounter Care Teams Latin Professor Relationship Specialty Start Date End Date Amor Montgomery MD PCP - General 09/24/01 05/05/13 [facility] [address] [place] [address] documented as of this encounter
--- OUTSIDE RECORDS SUMMARY | 2022-07-15 06:44 | XMS_ITS | Encounter Summary ---
:1965 Author Organization [place] Address [address] [place] [address] Care Team Providers Name Role Phone Amor Montgomery MD Primary Care Provider Reason for Visit Reason Comments RECHECK Encounter Details Date Type Department Care Team Description 10/14/2002 Office Visit [facility] Amor Montgomery HEADA [facility]; Clinic Luly Kelly MD TOBACCO USE DISORDER [address] [facility] [address] SYSTEM [place], [place] [address] [address] [place] [address] [phone] Social History Tobacco Use Types Packs/Day Years [...] Comments Blood Pressure 122/78 10/14/2002 11:15 AM MANUFACTURING PLANT TECHNICIAN Pulse - - Temperature - - Respiratory Rate 16 10/14/2002 11:15 AM MANUFACTURING PLANT TECHNICIAN Oxygen Saturation - - Inhaled Oxygen Concentration - - Weight 82.6 kg (182 lb) 10/14/2002 11:15 AM MANUFACTURING PLANT TECHNICIAN Height - - Body Mass Index - - documented in this encounter Progress Notes 10/14/2002 11:15 AM MANUFACTURING PLANT TECHNICIAN Follow-up visit: 1. Migraine CONNER's 2. smoking [...] disorder documented in this encounter Care Teams Senior Trial Attorney Relationship Specialty Start Date End Date Amor Montgomery MD PCP - General 09/24/01 05/05/13 [facility] [address] [place] [address] documented as of this encounter
--- OUTSIDE RECORDS SUMMARY | 2022-07-15 06:44 | XMS_ITS | Encounter Summary ---
:1965 Author Organization [place] Address [address] [place] [address] Care Team Providers Name Role Phone Amor Curtis MD Primary Care Provider Reason for Visit Reason Comments Headache Sinus Problem Encounter Details Date Type Department Care Team Description 08/23/2003 Telephone [facility] Amor Curtis ramana; Sinus Problem Clinic Luly Hugo MD [address] [facility] [address] [place], [place] [address] [address] [place] [address] [phone] Social History Tobacco Use Types Packs/Day Years Used Date Smoking Tobacco: Every Day Comments: LESS THAN 1 PPD Alcohol Use Standard Drinks/Week Comments Yes 0 (1 standard drink = 0.6 oz pure alcoho l) SMALL Sex Assigned at Date Recorded Not on file documented as of this encounter Miscellaneous Notes Telephone Encounter - 08/23/2003 11:59 PM WOOD PILE DRIVER OPERATOR >> MANNY GUTIERREZ ThuAug 23, 2003 1:30 [...] filedocumented in this encounter Care Teams Production Consultant Relationship Specialty Start Date End Date Amor Curtis MD PCP - General 09/24/01 05/05/13 [place] [address] [place] [address] documented as of this encounter
--- OUTSIDE RECORDS SUMMARY | 2022-07-15 06:44 | XMS_ITS | Encounter Summary ---
:1965 Author Organization [place] Address [address] [place] [address] Care Team Providers Name Role Phone Amor Curtis MD Primary Care Provider Reason for Visit Reason Comments Refill Request Encounter Details Date Type Department Care Team Description 07/09/2003 Refill [facility] Amor Tubbs MD Refill Request [facility] [address] [place] [address] [place] [address] [phone] Social History Tobacco Use Types Packs/Day Years Used Date Smoking Tobacco: Every Day Comments: LESS THAN 1 PPD Alcohol Use Standard Drinks/Week Comments Yes 0 (1 standard drink = 0.6 oz pure alcoho l) SMALL Sex Assigned at Date Recorded Not on file documented as of this encounter Miscellaneous Notes Telephone Encounter - 07/09/2003 11:59 PM CUSTOMER PROFESSIONAL >> AMOR CURTIS [place] Jul 09, 2003 10:21 PM >> CALL RECEIVED. Contact: documented in this encounter Plan of Treatment Not on filedocumented as of this encounter Visit Diagnoses Diagnosis ERRONEOUS ENCOUNTER--DISREGARD - Primary documented in this encounter Care Teams Injection Wax Molder Relationship Specialty Start Date End Date Amor Curtis MD PCP - General 09/24/01 05/05/13 [facility] [address] [place] [id number] documented as of this encounter
--- OUTSIDE RECORDS SUMMARY | 2022-07-15 06:44 | XMS_ITS | Encounter Summary ---
:1965 Author Organization [place] Address [address] [place] [address] Care Team Providers Name Role Phone Amor Montgomery MD Primary Care Provider Reason for Referral Consultation - Closed Specialty Diagnoses / Procedures Referred By Contact Refer red To Contact Diagnoses Other specified disorder of skin Amor Montgomery MD [facility] [address] [place] [address] Referral ID Status Reason Start Date Expiration Date Visits Requ ested Visits Authorized [id number] Closed Other 11/03/2002 08/09/2011 1 1 ECTOR RECEIVING Reason for Visit Reason Comments Derm Problem Encounter Details Date Type Department Care Team Description 11/03/2002 Office Visit [facility] Amor Montgomery SKIN DISORDERS [facility] Clinic Luly Hugo MD (Primary Dx) [address] [facility] [address] [place], [place] [address] [address] [place] [address] [phone] Social History Tobacco Use Types Packs/Day Years [...] Comments Blood Pressure 138/78 11/03/2002 11:45 AM INSPECTOR RECEIVING Pulse - - Temperature - - Respiratory Rate - - Oxygen Saturation - - Inhaled Oxygen Concentration - - Weight 81.4 kg (179 lb 8 oz) 11/03/2002 11:45 AM INSPECTOR RECEIVING Height - - Body Mass Index 27.29 10/20/2002 1:00 PM INSPECTOR RECEIVING documented in this encounter Progress Notes 11/03/2002 11:45 AM INSPECTOR RECEIVING 9Pt in with unusual pruritic dermatitis on [...] ry documented in this encounter Care Teams Senior Health Physics Technician Relationship Specialty Start Date End Date Amor Montgomery MD PCP - General 09/24/01 05/05/13 [facility] [address] [place] [address] documented as of this encounter
--- OUTSIDE RECORDS SUMMARY | 2022-07-15 06:44 | XMS_ITS | Encounter Summary ---
:1965 Author Organization [place] Address [address] [place] [address] Care Team Providers Name Role Phone Amor Montgomery MD Primary Care Provider Reason for Visit Reason Comments Consult Encounter Details Date Type Department Care Team Description 09/21/2002 Office Visit [facility] Amor Montgomery ABDOM INAL PAIN EPIGASTRIC (Primary Dx); Clinic Luly Hugo MD ACUTE MAXILLARY SINUSITIS [address] [facility] [address] SYSTEM [place], [place] [address] [address] [place] [address] [phone] Social History Tobacco Use Types Packs/Day Years [...] Comments Blood Pressure 128/70 09/21/2002 4:00 PM EXTRUSION DIE REPAIRER Pulse 68 09/21/2002 4:00 PM EXTRUSION DIE REPAIRER Temperature 37.1 ??C (98.8 ??F) 09/21/2002 4:00 PM EXTRUSION DIE REPAIRER Respiratory Rate 16 09/21/2002 4:00 PM EXTRUSION DIE REPAIRER Oxygen Saturation - - Inhaled Oxygen Concentration - - Weight 81.6 kg (180 lb) 09/21/2002 4:00 PM EXTRUSION DIE REPAIRER Height - - Body Mass Index - - documented in this encounter Progress Notes 09/21/2002 4:00 PM EXTRUSION DIE REPAIRER Pt in with a very prolonged URI, [...] PM Abdominal Pain Re sults for this EXTRUSION DIE REPAIRER Epigastric procedure are i n the results section. HCL HELICOBACTER Routine 09/21/2002 4:45 PM Abdominal Pain Res ults for this PYLORI BRE IGG EXTRUSION DIE REPAIRER Epigastric procedure are in the results section. HEMOGRAM Routine 09/21/2002 4:45 PM Abdominal Pain Results for this EXTRUSION DIE REPAIRER Epigastric procedure are i n the results section. documented in this encounter Results (ABNORMAL) A.M.A. HEPATIC PANEL (09/21/2002 4:45 PM EXTRUSION DIE REPAIRER) Analysis Performed At Patho logist Time Signature Bilirubin 0.0 0.0 - 0.3 [place] Conjugated mg/dL [facility] Bilirubin Delta 0.1 0.0 - 0.4 [place] mg/dL [facility] Bilirubin Total 0.2 0.2 - 1.3 [place] mg/dL [facility] Albumin 4.4 3.3 - 4.6 [place] g/dL [facility] Protein Total 8.6 (H) 6.0 - 8.2 [place] g/dL [facility] Alkaline 84 40 - 150 [place] Phosphatase U/L [facility] ALT 24 0 - 50 U/L [facility] AST 25 0 - 45 U/L [facility] Specimen Anatomical Collection Method Collection Time Receive d Time (Source) Location / / Volume Laterality 09/21/2002 4:45 PM 3 4:46 EXTRUSION DIE REPAIRER PM EXTRUSION DIE REPAIRER Amor Montgomery MD LABORATORY Performing Organization Address City/[facility]/ZIP Code Phon e Number [facility] [address] [place] [address] [facility] HEMOGRAM (09/21/2002 4:45 PM EXTRUSION DIE REPAIRER) P athologist Signature WBC 10.1 4.0 - 11.0 [facility] 10e9/L CLINIC LAB RBC Count 4.88 3.8 - 5.2 [facility] 10e12/L CLINIC LAB Hemoglobin 15.6 11.7 - 15.7 [facility] g/dL CLINIC LAB Hematocrit 46.0 35.0 - 47.0 [facility] % [facility] MCV 94 78 - 100 fl [facility] MCH 32.0 26.5 - 33.0 [facility] pg [facility] MCHC 34.0 32.0 - 36.0 [facility] g/dL [facility] RDW 11.3 10.0 - 15.0 [facility] Specimen Anatomical Collection Method Collection Time Receive d Time (Source) Location / / Volume Laterality 09/21/2002 4:45 PM 3 4:46 EXTRUSION DIE REPAIRER PM EXTRUSION DIE REPAIRER Amor Montgomery MD LABORATORY Performing Organization Address City/State/ZIP Code Phon e Number [facility] [address] [place], [place] [address] [address] [facility] HELICOBACTER PYLORI BRE IGG (09/21/2002 4:45 PM EXTRUSION DIE REPAIRER) Component Value Ref Test Analysis Performed At Patholo gist Range Method Time Signature Specimen Serum [facility] Heliobacter No detectable IgG antibody t o Helicobacter pylori. If current infection is [place] pylori Antibody suspected, please submit a new specimen in 4 to 6 we riks. [facility] Report status FINAL [id number] [facility] Specimen Anatomical Collection Method Collection Time Receive d Time (Source) Location / / Volume Laterality 09/21/2002 4:45 PM 3 4:46 EXTRUSION DIE REPAIRER PM EXTRUSION DIE REPAIRER Amor Montgomery MD LABORATORY Performing Organization Address City/State/ZIP Code Phon e Number [facility] [address] [place] [address] [facility] documented in this encounter Visit Diagnoses Diagnosis Abdominal pain, epigastric - Primary Acute maxillary sinusitis documented in this encounter Care Teams Geotechnical Laboratory Technician Relationship Specialty Start Date End Date Amor Montgomery MD PCP - General 09/24/01 05/05/13 [facility] [address] [place] [address] documented as of this encounter
--- OUTSIDE RECORDS SUMMARY | 2022-07-15 06:44 | XMS_ITS | Encounter Summary ---
:1965 Author Organization [place] Address [address] [place] [address] Care Team Providers Name Role Phone Amor Montgomery MD Primary Care Provider Reason for Visit Reason Comments migraine headache Encounter Details Date Type Department Care Team Description 07/13/2003 Abstract M [facility] Nick stevenson, DO [place] [address] [address] [place], [place] [address] [phone] Social History Tobacco Use Types Packs/Day Years Used Date Smoking Tobacco: Every Day Comments: LESS THAN 1 PPD Alcohol Use Standard Drinks/Week Comments Yes 0 (1 standard drink = 0.6 oz pure alcoho l) SMALL Sex Assigned at Date Recorded Not on file documented as of this encounter Progress Notes 07/13/2003 11:59 PM AMBULANCE ASSISTANT This information has been abstracted from the [facility] urgent care chart. demerol 50 mg IM phenog an 25 mg IM Electronically filed by Lizzie De La Paz 08/28/2003 2:47 PM documented in this encounter Plan of Treatment Not on filedocumented as of this encounter Visit Diagnoses Not on filedocumented in this encounter Care Teams Sleep Tech Relationship Specialty Start Date End Date Amor Montgomery MD PCP - General 09/24/01 05/05/13 [facility] [address] [place] [address] documented as of this encounter
--- OUTSIDE RECORDS SUMMARY | 2022-07-15 06:44 | XMS_ITS | Encounter Summary ---
:1965 Author Organization [place] Address [address] [place] [address] Care Team Providers Name Role Phone Amor Montgomery MD Primary Care Provider Encounter Details Date Type Department Care Team Description 03/08/2004 Orders Only [facility] Amor Montgomery [facility] HYROIDISM NOS Clinic Luly Hugo MD (Primary Dx) [address] [facility] SYSTEM [address] [place], [place] [address] [phone] Social History Tobacco Use Types Packs/Day Years [...] Primary documented in this encounter Care Teams Recycling Worker Relationship Specialty Start Date End Date Amor Montgomery MD PCP - General 09/24/01 05/05/13 [facility] [address] [place] [address] documented as of this encounter
--- OUTSIDE RECORDS SUMMARY | 2022-07-15 06:44 | XMS_ITS | Encounter Summary ---
:1965 Author Organization [place] Address [address] [place] [address] Care Team Providers Name Role Phone Amor Montgomery MD Primary Care Provider Encounter Details Date Type Department Care Team Description 01/27/2003 Orders Only [facility] Amor Montgomery. F VANESSA--LEFT HAND Clinic Luly Hugo MD & LEFT ELBOW X-RAY [address] [facility] (Primary Dx) [address] SYSTEM [place], [place] [address] [address] [place] [address] [phone] Social History Tobacco Use Types Packs/Day Years [...] Primary documented in this encounter Care Teams Clamper Relationship Specialty Start Date End Date Amor Montgomery MD PCP - General 09/24/01 05/05/13 [facility] [address] [place] [address] documented as of this encounter
--- OUTSIDE RECORDS SUMMARY | 2022-07-15 06:44 | XMS_ITS | Encounter Summary ---
:1965 Author Organization [place] Address [address] [place] [address] Care Team Providers Name Role Phone Amor Montgomery MD Primary Care Provider Encounter Details Date Type Department Care Team Description 10/14/[address] [facility] Patricia Sifuentes [address] [place] [address] Social History Tobacco Use [...] on filedocumented in this encounter Care Teams Store Loss Prevention Manager Relationship Specialty Start Date End Date Amor Montgomery MD PCP - General 09/24/01 05/05/13 [facility] [address] [place] [address] documented as of this encounter
--- OUTSIDE RECORDS SUMMARY | 2022-07-15 06:44 | XMS_ITS | Encounter Summary ---
:1965 Author Organization [place] Address [address] [place] [address] Care Team Providers Name Role Phone Amor Montgomery MD Primary Care Provider Reason for Visit Reason Comments Imm/Inj Encounter Details Date Type Department Care Team Description 04/15/2002 Telephone [facility] Merle Berumen, Imm/Inj Luly MONTILLA [address] [place] [address] [place] [address] [phone] Social History Tobacco Use Types Packs/Day Years Used Date Smoking Tobacco: Never Assessed Sex Assigned at Date Recorded Not on file documented as of this encounter Miscellaneous Notes Telephone Encounter - 04/15/2002 11:59 PM CDT >> CHERIE ADRIAN Fri Apr 15, 2002 4:35 PM orders done-will schedule nurse only-but will have someone from school read it Cherie Adrian RN >> GUILHERME BERUMEN Fri Apr 15, 2002 10:54 AM ok for nurse only mantoux. >> XAVI WOODARD ThuApr 15, 2002 10:21 AM >> CALL RECEIVED. Contact: [phone] Pt needs mantoux for school. Sched nurse only need orders documented in this encounter Plan of Treatment Not on filedocumented as of this encounter Visit Diagnoses Diagnosis Screening examination for pulmonary tube rculosis - Primary documented in this encounter Care Teams Commercial Real Estate Paralegal Relationship Specialty Start Date End Date Amor Montgomery MD PCP - General 09/24/01 05/05/13 [facility] [address] [place] [address] documented as of this encounter
--- OUTSIDE RECORDS SUMMARY | 2022-07-15 06:44 | XMS_ITS | Encounter Summary ---
:1965 Author Organization [place] Address [address] [place] [address] Care Team Providers Name Role Phone Amor Montgomery MD Primary Care Provider Nissa Cassidy DO Primary Care Provider [phone] Harriet Haley MD Primary Care Provider [phone] Encounter Details Date Type Department Care Team Description 01/27/2003 [facility] Amor Montgomery EN COUNTER (Primary Clinic Luly Hugo MD Dx) [address] [facility] [address] [place], [place] [address] [address] [place] [address] [phone] (Wo rk) Social History Tobacco Use Types [...] documented in this encounter Care Teams Hydraulic Plumber Relationship Specialty Start Date End Date Amor Montgomery MD PCP - General 09/24/01 05/05/13 [facility] [address] [place] [address] Nissa Cassidy DO PCP - General Internal Medicine 05/06/13 09/30/[address] [address] Harriet Haley MD PCP - General Physician [place] 10/01/15 [facility] [address] [place] [address] documented as of this encounter
--- OUTSIDE RECORDS SUMMARY | 2022-07-15 06:44 | XMS_ITS | Encounter Summary ---
:1965 Author Organization [place] Address [address] [place] [address] Care Team Providers Name Role Phone Amor Curtis MD Primary Care Provider Reason for Visit Reason Comments Medication Request anxiety over dental work Encounter Details Date Type Department Care Team Description 12/15/2003 [facility] Luly Hugo MD (anxiety over dental [address] [facility]) [address] SYSTEM [place], [place] [address] [address] [place] [address] [phone] Social History Tobacco Use Types Packs/Day Years [...] filedocumented in this encounter Care Teams Solar Water Heater Installer Relationship Specialty Start Date End Date Amor Curtis MD PCP - General 09/24/01 05/05/13 [place] [facility] [address] [place] [address] documented as of this encounter
--- OUTSIDE RECORDS SUMMARY | 2022-07-15 06:44 | XMS_ITS | Encounter Summary ---
:1965 Author Organization [place] Address [address] [place] [address] Care Team Providers Name Role Phone Amor Curtis MD Primary Care Provider Reason for Visit Reason Comments Headache Encounter Details Date Type Department Care Team Description 09/22/2002 Office Visit [facility] Amor Curtis MIGRA INE NOS W/O MENTN Clinic Lluy Hugo MD INTRACTABLE (Primary [address] [facility]) [address] [place], [place] [address] [address] [place] [address] [phone] Social History Tobacco Use Types Packs/Day Years [...] Comments Blood Pressure 102/70 09/22/2002 4:30 PM CONSTRUCTION ADMINISTRATIVE ASSISTANT Pulse 68 09/22/2002 4:30 PM CONSTRUCTION ADMINISTRATIVE ASSISTANT Temperature - - Respiratory Rate 16 09/22/2002 4:30 PM CONSTRUCTION ADMINISTRATIVE ASSISTANT Oxygen Saturation - - Inhaled Oxygen Concentration - - Weight - - Height - - Body Mass Index - - documented in this encounter Progress Notes 09/22/2002 4:30 PM CONSTRUCTION ADMINISTRATIVE ASSISTANT Pt was seen yesterday with sinus infection plus dyspepsia. Stomach is better already on nexium, butnow she has a bad migraine. She has had these from time to time; unfortunately imitrex & maxalt tria ls in past are not helpful. Limited exam done; vitals OK, sinuses still operator brandy, pt looks miserable Assessment: migraine CONNER PLAN: [...] Primary documented in this encounter Care Teams Telecommunications Officer Relationship Specialty Start Date End Date Amor Curtis MD PCP - General 09/24/01 05/05/13 [facility] [address] [place] [address] documented as of this encounter
--- OUTSIDE RECORDS SUMMARY | 2022-07-15 06:44 | XMS_ITS | Encounter Summary ---
:1965 Author Organization [place] Address [address] [place] [address] Care Team Providers Name Role Phone Amor Montgomery MD Primary Care Provider Reason for Visit Reason Comments Refill Request Encounter Details Date Type Department Care Team Description 2003 Refill [facility] Amor Tubbs MD Refill Request [facility] [address] [place] [address] [place] [address] [phone] Social History Tobacco Use Types Packs/Day Years Used Date Smoking Tobacco: Every Day Comments: LESS THAN 1 PPD Alcohol Use Standard Drinks/Week Comments Yes 0 (1 standard drink = 0.6 oz pure alcoho l) SMALL Sex Assigned at Date Recorded Not on file documented as of this encounter Miscellaneous Notes Telephone Encounter - 2003 11:59 PM LEATHER TOGGLER >> RACHEL ESPINOZA Wed 2003 10:50 AM >> CALL RECEIVED. Contact: Pt [phone] Ok to leave detailed msg Patient request refill Bottle states last refilled 11-06-02 at [facility]. Last seen 08-24-03 for Migraine documented in this encounter Plan of Treatment Not on filedocumented as of this encounter Visit Diagnoses Not on filedocumented in this encounter Care Teams Private Chef Relationship Specialty Start Date End Date Amor Montgomery MD PCP - General 09/24/01 05/05/13 [facility] [address] [place] [address] documented as of this encounter
== END 2022-06-22 23:00 | disposition home or self-care (01) ==
PROVIDERS: PCP Family Medicine; Visit Provider Family Medicine
DX: R53.83 Other fatigue (principal); R42 Dizziness and giddiness; N39.0 Urinary tract infection, site not specified
CPT/HCPCS: A0425; A0427

== ENCOUNTER 2022-06-22 23:34 | Emergency (ER) | payer OTHER, SELFPAY ==
[2022-06-22 23:39] VITALS: BP 133/73; PULSE 79; RESP 18; TEMP 36.5; O2SAT 97; BMI 33.5
[2022-06-23 00:15] VITALS: BP 128/66; PULSE 76; RESP 16; O2SAT 96
--- NOTE | 2022-06-23 00:24 | CRLHL7_ITS ---
For Patients: As a result of the Century Cures Act, medical imaging exams and procedure reports are released immediately into your electronic medical record. You may view this report before your referring provider. If you have questions, please contact your health care provider. INDICATION: Flank pain. TECHNIQUE: CT abdomen and pelvis without contrast. COMPARISON: None. FINDINGS: Lower chest: Unremarkable. Liver: Normal in size and attenuation. No suspicious masses. Gallbladder and bile ducts: Status post cholecystectomy. No biliary ductal dilation. Spleen: Normal in size. No masses. Adrenal glands: Normal in size. No nodules. Pancreas: Unremarkable. No mass or inflammation. Kidneys: Normal in size. 3 mm calculus at the left ureterovesical junction. No hydroureter or hydronephrosis. No suspicious masses. GI tract: Unremarkable. Normal in caliber. No sign of mass or inflammation. Lymph nodes: No lymphadenopathy. Vasculature: Scattered atherosclerotic calcifications. Abdominal wall/Omentum/Peritoneum: Unremarkable. No sign of mass or infiltration. No free air or significant free fluid. Pelvis: Unremarkable. No pelvic masses. Bones: L3-4 degenerative disc disease. IMPRESSION: 3 mm left ureterovesical junction calculus. No upstream hydroureteronephrosis. Please note that all CT scans at this facility use dose modulation, iterative reconstruction, and/or weight-based dosing when appropriate to reduce radiation dose to as low as reasonably achievable. Dictated by Johnny Cabrera MD @ 06/23/2022 1:16:35 AM (Electronically Signed)
--- NOTE | 2022-06-23 00:24 | ED.DIZZY ---
HPI - Dizziness General Chief Complaint: Fall/Minor Trauma Stated Complaint: fall Time Seen by Provider: 06/22/22 23:56 Source: patient Mode of arrival: EMS History of Present Illness HPI Narrative: 56-year-old female presents the emergency department for the 2nd time in 2 days. Patient was evaluated day and a half ago and was diagnosed ultimately with a bladder infection and likely viral URI after she is experiencing fatigue, some mild dizziness and nonspecific symptoms. Blood work and note from Dr. Hall are fully reviewed. Patient reports that this evening, she got up to use the bathroom which was uncomplicated. After urinating she had a sudden worsening of right flank pain, accompanied by vertigo-like dizziness which caused her to lose her balance and fall to the side. She did not hit her head nor lose consciousness. She laid on her hip which she states is not significantly painful at this time. She was able to get herself up and walk back to the bed with no problems. She texted her daughter who was also in the home at the time it is daughter came and attended to her and called 911. At no point did she have any significant neurological change, cardiovascular change, significant shortness of breath, loss of consciousness, seizure or other emergent condition. Patient states that she has not taken any Tylenol or ibuprofen to help with her pain. She has been taking the antibiotics as prescribed. She describes her dizziness as like when you have been drinking which I interpret to further discussion as a mild vertigo-like dizziness. She states that she is eating and drinking normally, voiding and stooling without complication. She has not noted any blood in her urine. There is no jeane dysuria. Past medical history is notable for fibromyalgia, prior stroke, hypothyroidism, reported history of AFib, hyperlipidemia. Home medications are reviewed through the EMR and are consistent with the pill bottles that she brings today. Socially, she denies any illicit substance use, alcohol or tobacco. No pertinent travel. Surgical history is notable for multiple intra-abdominal surgeries including an endometrial ablation, prior , hysterectomy, cholecystectomy, appendectomy. ROS is notable for the generalized, urinary and neurological symptoms as above, otherwise denies times 12. Related Data Home Medications Medication Instructions Recorded Confirmed aripiprazole 2 mg tablet 2 mg PO DAILY 02/20/22 02/20/22 buspirone 15 mg tablet 7.5 mg PO BID 02/20/22 02/20/22 desvenlafaxine 100 mg 100 mg PO DAILY 02/20/22 02/20/22 tablet,extended release 24 hr gabapentin 300 mg capsule 300 mg PO TID 02/20/22 02/20/22 hydrochlorothiazide 25 mg tablet 25 mg PO DAILY 02/20/22 02/20/22 rosuvastatin 20 mg tablet 20 mg PO .Bedtime 02/20/22 02/20/22 verapamil 120 mg 24 hr 120 mg PO QDAY 02/20/22 02/20/22 capsule,extended release verapamil 240 mg tablet,extended 240 mg PO DAILY 02/20/22 02/20/22 release Previous Rx's Medication Instructions Recorded levothyroxine 112 mcg tablet 112 mcg PO DAILY #90 tabs 05/11/22 ciprofloxacin HCl 500 mg tablet 500 mg PO BID #10 tabs 06/21/22 ondansetron HCl 4 mg tablet 4 mg PO BID-TID PRN nausea and 06/21/22 vomiting #10 tabs Allergies Allergy/AdvReac Type Severity Reaction Status Date / Time cefuroxime Allergy Unknown Verified 02/19/22 08:06 nitrofurantoin Allergy Unknown Verified 02/19/22 08:06 pregabalin Allergy Unknown Verified 02/19/22 08:06 sulfamethoxazole Allergy Unknown Verified 02/19/22 08:06 [From Sulfamethoxazole-Trimethoprim] trimethoprim Allergy Unknown Verified 02/19/22 08:06 [From Sulfamethoxazole-Trimethoprim] AMOXICILLIN-POT CLAVULANATE Allergy Mild Rash Uncoded 02/19/22 08:06 Pneumococcal conjugate Allergy Unknown Uncoded 02/19/22 08:06 [facility] Social History Smoking Status: Never smoker How often do you have a drink containing alcohol: never AUDIT-C Alcohol total score: 0 Non-prescribed substance use: denies use Exam Const: Vital Signs, click to edit/add: Vital Signs - 24 hr 06/22/22 23:39 Temperature 97.7 F Pulse Rate [Pulse Oximeter] 79 Respiratory Rate 18 Blood Pressure [Le ft Upper Arm] 133/73 Pulse Oximetry 97 Oxygen Delivery Me thod Room Air Documenting provider has reviewed patient's vital signs: yes Common normals: no apparent distress General appearance: cooperative, comfortable and well kempt HENMT: Common normals: normocephalic, head/scalp atraumatic, TM's normal bilaterally, moist oral mucous membranes, oropharynx normal and dentition normal Head and scalp: normocephalic and atraumatic Tympanic membrane: TM's normal bilaterally Eye: Common normals: conjunctivae normal and no scleral icterus Conjunctiva: conjunctiva(e) normal Neck & C-Spine: Common normals: full ROM, no lymphadenopathy and no meningeal signs Cervical spine: cervical ROM normal; no cervical spine tenderness Resp: Common normals: normal respiratory effort, no use of accessory muscles and clear to auscultation bilaterally Effort & inspection: able to speak in complete sentences Auscultation: clear to auscultation bilaterally Cardio: Common normals: regular rate, regular rhythm, S1 normal heart sound, S2 normal heart sound, no murmurs and peripheral pulses 2+ throughout Rate: regular rate Rhythm: regular rhythm Heart sounds: S1 normal and S2 normal Peripheral pulses: pulses 2+ throughout GI: Common normals: Normal to inspection, nondistended, normoactive bowel sounds present, soft to palpation, non-tender, no hepatosplenomegaly and no masses Palpation: soft and no hepatosplenomegaly : Other: Mild CVA tenderness on right only, not on left Extremity: Common normals: normal to inspection, normal capillary refill and no pedal edema Neuro: Common normals: moves all extremities, no focal motor deficits and no sensory deficits noted Meningeal signs: no meningeal signs Speech: speech normal Motor exam: no tremor noted and no movement abnormalities noted Psych: Appearance: well kempt Attitude: calm and engaged Insight: fair Judgement: fair Skin: Common normals: no rashes or lesions noted General skin exam: no rashes or lesions noted Course Course Hospital Course: sounds like a vagal episode after urination. Suspicious for kidney infection, kidney stone, sepsis, sequelae of known infection. Prior labs would not suggest electrolyte abnormality, anemia or other organ system issues. Recommended repeating basic blood work, CT scan to look for kidney stone. She was agreeable to some pain medication, I recommend Toradol and Zofran for her nausea. Will then give a L of fluids and reassess. Vital Signs Vital signs: Initial Vital Signs Temperature 97.7 F 06/22/22 23:39 Temperature Source Temporal Artery Scan 06/22/22 23:39 Pulse Rate 79 06/22/22 23:39 Respiratory Rate 18 11/13/22 23:39 Blood Pressure 133/73 06/22/22 23:39 Blood Pressure Mean 93 06/22/22 23:39 Blood Pressure Position Semi-Fowlers 06/22/22 23:39 Pulse Oximetry 97 06/22/22 23:39 Oxygen Delivery Method 06/22/22 23:39 Vital Signs Temperature 97.7 F 06/22/22 23:39 Pulse Rate 79 06/22/22 23:39 Respiratory Rate 18 06/22/22 23:39 Blood Pressure 133/73 06/22/22 23:39 Pulse Oximetry 97 06/22/22 23:39 Oxygen Delivery Method 06/22/22 23:39 Temperature 97.7 F 06/22/22 23:39 Pulse Rate 79 06/22/22 23:39 Respiratory Rate 18 06/22/22 23:39 Blood Pressure 133/73 06/22/22 23:39 Pulse Oximetry 97 06/22/22 23:39 Oxygen Delivery Method 06/22/22 23:39 MDM - Dizziness MDM Narrative Medical decision making narrative: Patient noting improvement in her pain with the Toradol, improvement of nausea with Zofran. Discussed laboratory findings and CT results. There is a 3 mm UVJ stone per my interpretation, confirmed with radiology report. No other pertinent findings on CT or labs. No signs of sepsis, kidney dysfunction, hydroureter on imaging, etc.. Discussed plan of care with patient. 3 mm stone will pass without complication. She should continue her course of Cipro. Use Tylenol and ibuprofen, push fluids. Call primary care provider if any fever. ED if any severe worsening of symptoms. Lab Data Attestation: I reviewed the patient's lab results. Labs: Lab Results 06/23/22 06/23/22 06/23/22 Range/Units 00:15 00:45 00:45 WBC 9.91 (4.50-11.00) K/uL RBC 4.28 (4.00-5.20) m/uL Hgb 13.4 (12.0-16.0) gm/dL Hct 39.2 (33.0-51.0) % MCV 92 (80-100) fL MCH 31 (26-34) pg MCHC 34 (32-36) gm/dL RDW Coeff of Deion 12.9 (11.5-15.5) % Plt Count 301 (140-440) K/uL Neut % (Auto) 53.7 (42.0-72.0) % Lymph % (Auto) 34.8 (20-44) % [place] % (Auto) 7.4 (0.0-11.0) % Eos % (Auto) 3.4 (0.0-7.0) % Baso % (Auto) 0.2 (0.0-3.0) % Neut # (Auto) 5.32 (1.7-7.0) K/uL Lymph # (Auto) 3.45 H (0.90-2.90) K/uL [place] # (Auto) 0.70 (0.00-0.90) K/UL Eos # (Auto) 0.34 (0.00-0.50) K/uL Baso # (Auto) 0.02 (0.00-0.30) K/uL Abs Immat Gran (auto) 0.05 (0.00-0.30) K/uL Imm/Tot Granulo (auto) 0.5 % Sodium 141 (135-149) mmol/L Potassium 4.0 (3.6-5.1) mmol/L Chloride 103 (96-114) mmol/L Carbon Dioxide 33 H (20-32) mmol/L BUN 12 (7-30) mg/dL Creatinine 1.0 (0.5-1.5) mg/dL Estimated Creat Clear 63.37 Estimated GFR 66 ml/min Glucose 99 (60-115) mg/dL Lactate (0.5-1.9) mmol/L Calcium 9.7 (8.4-10.6) mg/dL C-Reactive Protein < 0.5 L (0.5-1.0) mg/dL Urine Color Yellow (Yellow) Urine Appearance Clear (Clear) Urine pH 6.5 (5.0-8.5) Ur Specific [place] 1.010 (1.000-1.030) Urine Protein Negative (Negative) Urine Glucose (UA) Negative (Negative) Urine Ketones Negative (Negative) Urine Blood Trace-intact A (Negative) Urine Nitrite Negative (Negative) Urine Bilirubin Negative (Negative) Urine Urobilinogen 0.2 (0.2-1.0) Ur Leukocyte Esterase Trace A (Negative) Urine RBC 5-10 A (0-2) Urine WBC 0-2 (0-5) Ur Squamous Epith Cells Few (None-Few) Urine Bacteria Moderate A (None) 06/23/22 Range/Units 00:45 WBC (4.50-11.00) K/uL RBC (4.00-5.20) m/uL Hgb (12.0-16.0) gm/dL Hct (33.0-51.0) % MCV (80-100) fL MCH (26-34) pg MCHC (32-36) gm/dL RDW Coeff of Deion (11.5-15.5) % Plt Count (140-440) K/uL Neut % (Auto) (42.0-72.0) % Lymph % (Auto) (20-44) % [place] % (Auto) (0.0-11.0) % Eos % (Auto) (0.0-7.0) % Baso % (Auto) (0.0-3.0) % Neut # (Auto) (1.7-7.0) K/uL Lymph # (Auto) (0.90-2.90) K/uL [place] # (Auto) (0.00-0.90) K/UL Eos # (Auto) (0.00-0.50) K/uL Baso # (Auto) (0.00-0.30) K/uL Abs Immat Gran (auto) (0.00-0.30) K/uL Imm/Tot Granulo (auto) % Sodium (135-149) mmol/L Potassium (3.6-5.1) mmol/L Chloride (96-114) mmol/L Carbon Dioxide (20-32) mmol/L BUN (7-30) mg/dL Creatinine (0.5-1.5) mg/dL Estimated Creat Clear Estimated GFR ml/min Glucose (60-115) mg/dL Lactate 1.0 (0.5-1.9) mmol/L Calcium (8.4-10.6) mg/dL C-Reactive Protein (0.5-1.0) mg/dL Urine Color (Yellow) Urine Appearance (Clear) Urine pH (5.0-8.5) Ur Specific [place] (1.000-1.030) Urine Protein (Negative) Urine Glucose (UA) (Negative) Urine Ketones (Negative) Urine Blood (Negative) Urine Nitrite (Negative) Urine Bilirubin (Negative) Urine Urobilinogen (0.2-1.0) Ur Leukocyte Esterase (Negative) Urine RBC (0-2) Urine WBC (0-5) Ur Squamous Epith Cells (None-Few) Urine Bacteria (None) Imaging Data CT scan - pelvis: My impression: 3 mm left UVJ stone Radiologist's impression: same Discharge Plan Discharge Clinical Impression: Calculus of ureterovesical junction (UVJ) Patient Disposition: Home w/ Parent or Adult Condition: Stable Instructions: Ureteral Stones (ED) Additional Instructions: the CT scan shows a very small kidney stone near the bladder on the left side. This would explain the spell you had after going to the bathroom tonight. I would like for you to continue on the antibiotic that you have Been prescribed. The stone is small enough to pass without any intervention. I recommend that you take ibuprofen 600 mg every 6 hours and alternate with Tylenol 1000 mg every 6 hours as needed for pain. This should pass within a few days. You may have more spell similar to tonight. Drink lots of fluids to help flush the stone. If you start running fevers over 100.4, notify her primary care provider. If your symptoms are severe, come back to the emergency room. Activity Level: No Restrictions Discharge Diet: Regular Prescriptions: No Action desvenlafaxine 100 mg tablet extended release 24 hr 100 mg PO DAILY aripiprazole 2 mg tablet 2 mg PO DAILY buspirone 15 mg tablet 7.5 mg PO BID hydrochlorothiazide 25 mg tablet 25 mg PO DAILY verapamil 240 mg tablet extended release 240 mg PO DAILY gabapentin 300 mg capsule 300 mg PO TID verapamil 120 mg capsule,ext rel. pellets 24 hr 120 mg PO QDAY rosuvastatin 20 mg tablet 20 mg PO .Bedtime ciprofloxacin HCl 500 mg tablet 500 mg PO BID Qty: 10 0RF ondansetron HCl 4 mg tablet 4 mg PO BID-TID PRN (Reason: nausea and vomiting) Qty: 10 0RF levothyroxine 112 mcg tablet 112 mcg PO DAILY Qty: 90 3RF Follow Up/Referrals: Lul Akers MD [Primary Care Provider] - Stand Alone Forms: POKKT Info Instructions
[2022-06-23] MEDS: ONDANSETRON 2 MG/ML inj 4 MG IVP (00:30)
[2022-06-23] MEDS: KETOROLAC 15 MG/ML inj IVP (00:30)
--- OUTSIDE RECORDS SUMMARY | 2022-06-23 00:52 | XMS_ITS | Encounter Summary ---
:1965 Author Organization [facility] Address [address] [place] [address] Care Team Providers Name Role Phone Unavailable Primary Care Provider Unavailable Encounter Details Date Type Department Care Team Description 10/10/2005 PN Conversion Only [place] CON[facility] [address] [place] [address] Social History Tobacco Use Types Packs/Day Years Used Date Smoking Tobacco: Never Assessed Sex Assigned at Date Recorded Not on file documented as of this encounter Plan of Treatment Not on filedocumented as of this encounter Visit Diagnoses Not on filedocumented in this encounter
--- OUTSIDE RECORDS SUMMARY | 2022-06-23 00:52 | XMS_ITS | Encounter Summary ---
:1965 [facility] Address [address] [place] [address] Care Team Providers Name Role Phone Unavailable Primary Care Provider Unavailable Encounter Details Date Type Department Care Team Description 05/01/2003 [place] [facility] [address] [place] [address] Social History Tobacco Use Types [...] 1608 Note Time: 05/01/03 0001 Status: Signed Skip Pit Worker: Chon Beebe MD (Physician) NAME: LIZZIE GRIFFITHS MR: [id number] ACCT: [id number] VISIT: [id number] DICTATING CLINICIAN: CHON BEEBE MD JOB: [id number] CLINIC PROGRESS NOTE DATE OF VISIT: 05/01/2003 [...] back on a per-needed basis. TT: CT: [id number] C: 05/02/03 13:51 DOCUMENT: [id number] documented in this encounter Plan of Treatment Not on filedocumented as of this encounter Visit Diagnoses Not on filedocumented in this encounter
--- OUTSIDE RECORDS SUMMARY | 2022-06-23 00:52 | XMS_ITS | Encounter Summary ---
:1965 Author Organization [facility] Address [address] [place] [address] Care Team Providers Name Role Phone Harriet Haley MD Primary Care Provider [phone] Reason for Visit Reason Onset Date Comments Patient Reminder 02/17/2018 Call for appointment 02/19/18 Encounter Details Date Type Department Care Team Description 02/17/2018 Telephone [facility] Gastroenterology Jacy Arredondo, Patient Reminder (Call and IBD wrapper hand for appointment [address] [facility] 02/19/18) [address] [place] [phone] Social History Tobacco Use Types Packs/Day [...] on filedocumented in this encounter Care Teams Weather Forecaster Relationship Specialty Start Date End Date Harriet Haley MD PCP - General Physician Horseback Riding Instructor 10/01/15 [facility] [address] [place] [address] documented as of this encounter
--- OUTSIDE RECORDS SUMMARY | 2022-06-23 00:52 | XMS_ITS | Encounter Summary ---
:1965 [facility] Address [address] [place] [address] Care Team Providers Name Role Phone Unavailable Primary Care Provider Unavailable Reason for Visit Reason Comments Cough Encounter Details Date Type Department Care Team Description 11/12/2021 Office Visit [place] [address] Urgent Gurdeep Tyler PA-C Cough; Care [address] [place]; [address] [place] [address] [place] [address] [phone] Social History Tobacco Use Types Packs/Day Years [...] 20 seconds, or use an alcohol-based hand cut off worker containing 60% to 95% alcohol. Avoid touching [...] p.r.n. documented in this encounter Nursing Notes Ashley Lion RN - 11/12/2021 12:00 PM CDT [...] in Clinic Today (11/12/2021 12:07 PM CDT) [facility] Method Time Signature COVID-19 Not Not 11/13/2021 [facility] Interpretation Detected Detected 1:45 AM CENTRAL LAB CDT Source Nares, left 11/13/2021 [facility] and right 1:45 AM CENTRAL LAB CDT Specimen Anatomical Collection Method Collection Time Receive d Time (Source) Location / / Volume Laterality Swab (Source ENTIRE ANTERIOR Non-blood 11/12/2021 12:07 11/13/19 22 3:09 Required) NARIS / Unknown Collection / PM CDT PM CDT Unknown Narrative [facility] - 11/13/2021 1:45 AM CDT Test performed by Application Support Developer Mediated Amplification. TMA has been shown to be equivalent to commercial real-time PCR t ests. This test has been authorized by the FDA under Emergency Use Authorization (E UA) for use by authorized laboratories. [facility] Performing Organization Address City/State/ZIP Code Phon e Number [facility] [address] [address] documented in this encounter Visit Diagnoses Diagnosis Cough Uvulitis Cellulitis and abscess of oral soft tiss ues Viral URI Acute upper respiratory infections of un specified site documented in this encounter Additional Health Concerns Infection Onset Date Last Indicated Resolved Time R/O COVID19 11/12/2021 11/12/2021 11/13/2021 1:45 AM CDT documented as of this encounter
--- OUTSIDE RECORDS SUMMARY | 2022-06-23 00:52 | XMS_ITS | Encounter Summary ---
:1965 Author Organization [facility] Address formerly [facility] [place] [address] Care Team Providers Name Role Phone Harriet Haley MD Primary Care Provider [phone] Reason for Visit Reason Comments Urgent Care UTI Encounter Details Date Type Department Care Team Description 09/23/2017 Office Visit [facility] Briana Banuelos Dysuria (Primary Dx); Urgent Care Shaan Peres MD Nonspecific finding on examination of ur ine; [address] Acute [place] [phone] Social History Tobacco Use Types Packs/Day Years [...] Comments Blood Pressure 122/79 09/23/2017 6:47 PM BOND MANAGER Pulse 121 09/23/2017 6:47 PM BOND MANAGER Temperature 36.6 ??C (97.9 ??F) 09/23/2017 6:47 PM BOND MANAGER Respiratory Rate 14 09/23/2017 6:47 PM BOND MANAGER Oxygen Saturation 96% 09/23/2017 6:47 PM BOND MANAGER Inhaled Oxygen Concentration - - Weight 99.8 kg (220 lb) 09/23/2017 6:47 PM BOND MANAGER Height - - Body Mass Index 33.45 09/28/2016 2:53 PM BOND MANAGER documented in this encounter Patient Instructions Patient [...] in the labia (outer vaginal area) ?? [phone] [employer]. [address] [place] [address], [place] [address]. All rights reserved. This information is not intended as a substitute for professional medical care. Always follow your healthcare professional's instructions. This information has been modified by your health care provider with permission from the publisher. MANAGER documented in this encounter Progress Notes Briana Banuelos MD - 09/23/2017 6:40 PM CST SUBJECTIVE: Chief Complaint Patient presents with ??? Urgent Care ??? UTI Lizzie He is a 51 year old [...] the antibiotic to better cover the infection. MANAGER documented in this encounter Nursing Notes Jennifer [...] lb (99.8 kg). Medication Reconciliation: franck Mohan MOUTHPIECE MAKER MANAGER documented in this encounter Plan of Treatment Not on filedocumented as of this encounter Procedures Procedure Name Priority Date/Time Associated Diagnosis Comme nts URINE CULTURE Routine 09/23/2017 7:31 PM Nonspecific finding R esults for this BOND MANAGER on examination of procedure are in urine the results section. URINE MICROSCOPIC Routine 09/23/2017 7:00 PM Dysuria Resu lts for this BOND MANAGER procedure are i n the results section. documented in this encounter Results (ABNORMAL) Urine Culture Aerobic Bacterial (09/23/2017 7:31 PM BOND MANAGER) Component Value Ref Test [facility] g[facility] Range Method Time Signature Specimen Midstream Urine [facility] Culture Micro >100,000 colonies/mL 09/25/2017 [facility] Escherichia coli 9:20 PM BOND MANAGER [facility] (A) [facility] Specimen (Source) Anatomical Collection Method Collection Time Re ceived Time Location / / Volume Laterality Examination of 09/23/2017 7:31 09/23/2017 7:33 midstream urine PM BOND MANAGER PM BOND MANAGER specimen (procedure) Organism Antibiotic Method Susceptibility Escherichia [...] Organization Address City/State/ZIP Code Phon e Number [address] (ABNORMAL) Urine Microscopic (09/23/2017 7:00 PM BOND MANAGER) [facility] Method Time Signature WBC Urine >100 (A) OTO2^O - 09/23/2017 [facility] 2 /HPF 7:16 PM BOND MANAGER [facility] RBC Urine 10-25 (A) OTO2^O - 09/23/2017 [facility] 2 /HPF 7:16 PM BOND MANAGER [facility] [place] Squamous Moderate (A) FEW^Few 09/23/2017 [facility] Epithelial /LPF 7:16 PM BOND MANAGER CLINICS /LPF Urine [place] Bacteria Urine Many (A) NEG^Negat 09/23/2017 [facility] /HPF 7:16 PM BOND MANAGER [facility] [place] Specimen Anatomical Collection Method Collection Time Receive d Time (Source) Location / / Volume Laterality 09/23/2017 7:00 PM 8 7:10 BOND MANAGER PM BOND MANAGER Briana Banuelos MD LAB - URINE ORDERABLES Performing Organization Address City/State/ZIP Code Phon e Number [facility] [address] [place] [address] documented in this encounter Visit Diagnoses Diagnosis Dysuria - Primary Nonspecific finding on examination of ur ine Other nonspecific finding on examination of urine Acute cystitis without hematuria Acute cystitis documented in this encounter Care Teams Health Care / Medical Job Titles Relationship Specialty Start Date End Date Harriet Haley MD PCP - General Physician Doll Wigs Hackler 10/01/15 [facility] [address] [place], [place] [id number] documented as of this encounter
--- OUTSIDE RECORDS SUMMARY | 2022-06-23 00:52 | XMS_ITS | Encounter Summary ---
:1965 Author Organization [place] Address [address] [place] [address] Care Team Providers Name Role Phone Harriet Haley MD Primary Care Provider [phone] Reason for Visit Reason Comments Urgent Care Dysuria Frequency, Urgency, Hesitanc y, Odor, Nuctoria x4, Pelvic pain, back pain, L flank pain x2 days. Encounter Details Date Type Department Care Team Description 05/12/2017 Office Visit [facility] Darshan German, Acute c ystitis without hematuria (Primary Dx); Urgent Care Shaan kelly PA-C Dysuria [address] [place] [address] [phone] Social History Tobacco Use Types Packs/Day Years [...] (ABNORMAL) Urine Microscopic (05/12/2017 7:50 PM CDT) [facility] gist Method Time Signature WBC Urine 5-10 (A) OTO2^O - 2 05/12/2017 [facility] /HPF 8:12 PM CDT [facility] RBC Urine 10-25 (A) OTO2^O - 2 05/12/2017 [facility] /HPF 8:12 PM CDT [facility] Squamous Few FEW^Few 05/12/2017 [facility]helial /LPF /LPF 8:12 PM CDT [facility] Bacteria Urine Few (A) NEG^Negati 05/12/2017 [facility] ve /HPF 8:12 PM CDT [facility] Specimen Anatomical Collection Method Collection Time Receive d Time (Source) Location / / Volume Laterality 05/12/2017 7:50 PM 7 7:51 CDT PM CDT Darshan German PA-C LAB - URINE ORDERABLES Performing Organization Address City/State/ZIP Code Phon e Number [facility] [id number] [place] [address] documented in this encounter Visit Diagnoses Diagnosis Acute cystitis without hematuria - Prima ry Acute cystitis Dysuria documented in this encounter Care Teams Health Plan Advisor Relationship Specialty Start Date End Date Harriet Haley MD PCP - General Physician Accelerator Technician 10/01/15 [facility] [address] [place] [address] documented as of this encounter
--- OUTSIDE RECORDS SUMMARY | 2022-06-23 00:52 | XMS_ITS | Encounter Summary ---
:1965 Author Organization [employer] Address [address] [place] [address] Care Team Providers Name Role Phone Unavailable Primary Care Provider Unavailable Reason for Visit Reason Comments DIZZINESS Encounter Details Date Type Department Care Team Description 03/16/2020 Nurse Triage Careline Unknown, Physician DIZZINESS [address] [place], [place] [address] [place] [address] [phone] (Wo rk) Social History Tobacco Use Types [...] WORSE Protocols used: INFECTION ON ANTIBIOTIC FOLLOW-UP [id number] PLAN: Advised patient to be seen at [...] or clinic is the patient normally seen? [facility] Symptoms Describe the reason for call/symptoms (include location and duration if applicable): pt states she was diagnosed with a kidney infection yesterday and today she feels very dizzy. Plan:Caller transferred directly to CareLine nurse. documented in this encounter Plan of Treatment Not on filedocumented as of this encounter Visit Diagnoses Not on filedocumented in this encounter
--- OUTSIDE RECORDS SUMMARY | 2022-06-23 00:52 | XMS_ITS | Encounter Summary ---
:1965 Author Organization [place] Address [address] [place] [address] Care Team Providers Name Role Phone Harriet Haley MD Primary Care Provider [phone] Encounter Details Date Type Department Care Team Description 01/05/2021 Records - [facility] CONVERSION Provider, Histor ica Social History Tobacco [...] on filedocumented in this encounter Care Teams Clay Pigeon Loader Relationship Specialty Start Date End Date Harriet Haley MD PCP - General Physician Corporate Auditor 10/01/15 [facility] [address] [place] [address] documented as of this encounter
--- OUTSIDE RECORDS SUMMARY | 2022-06-23 00:52 | XMS_ITS | Encounter Summary ---
:1965 Author Organization [place] Address [address] [facility] [place] [address] Care Team Providers Name Role Phone Harriet Haley MD Primary Care Provider [phone] Reason for Visit Reason Comments Urgent Care Trauma R foot had been painful for x4 days, tried icing and resting it. Worked last night and she came home and foot was swollen. Hx of stress Fx on L foot. Encounter Details Date Type Department Care Team Description 04/15/[address] [facility] Briana Banuelos Right fo ot pain (Primary Dx); Urgent Care Shaan Peres MD Metatarsalgia of right foot [address] [facility] [address] [place] [address] [phone] Social History Tobacco Use Types Packs/Day Years [...] metatarsal bone. Date Last Reviewed: 05/08/2015 ?? [phone] [employer]. [address] [place] [address], [place] [address]. All rights reserved. This information is not [...] foot care. Date Last Reviewed: 05/08/2015 ?? 4701-8329 [employer]. [address] [place] [address], [place] [address]. All rights reserved. This information is not [...] the foot. Date Last Reviewed: 04/19/2015 ?? 8030-8395 [employer]. [address] [place] [address], [place] [address]. All rights reserved. This information is not [...] toes. 2. No fracture or malalignment. NEIL HAMLNI MD Briana Banuelos MD IMG DIAGNOSTIC IMAGING ORDER NATALY documented in this encounter Visit Diagnoses Diagnosis Right foot pain - Primary Pain in limb Metatarsalgia of right foot Enthesopathy of ankle and tarsus, unspec ified Right foot pain Pain in limb documented in this encounter Care Teams Regional Business Manager Relationship Specialty Start Date End Date Harriet Haley MD PCP - General Physician Perfect Bind Machine Operator 10/01/15 [facility] [address] [place] [address] documented as of this encounter
--- OUTSIDE RECORDS SUMMARY | 2022-06-23 00:52 | XMS_ITS | Clinical Summary ---
:1965 Author Organization [facility] Address [address] [place] [address] Care Team Providers Name Role Phone Harriet Haley MD Primary Care Provider [phone] Allergies Active Allergy Reactions Severity Noted [...] prescribed intentionally due to {CHOOSE REASON BEFORE SIGNING!!!:150267} order for DMEIndications: Equipment being 1 Units [...] 99.8 kg (220 lb) 09/23/2017 6:47 PM [facility] Height 172.7 cm (5' 8) 09/28/2016 2:53 PM [facility] Body Mass Index 33.45 09/28/2016 2:53 PM [facility] Plan of Treatment Health Maintenance Due Date [...] this topic Medical Devices Implanted Type Area Wood And Hardware Outfitter Device Shelf Model / Identifier Expiration Serial / Lot Date Sling Sparc Urinary System [id number] Stent N/A: ASTORA 06/15/2018 [id number] / Implanted: Qty: 1 on 11/05/2015 Bladder / [id number] Kit Sling Lynx - [id number] Stent N/A: BOSTON 0 11/25/2018 [id number] / Implanted: Qty: 1 on 02/20/2016 Bladder [employer] / [id number] C4-C5 Fusion Explanted Type Area Wood And Hardware Outfitter Device Identifier Shelf Exp iration Model / Date Serial / L ot Sparc Sling Explanted: 11/05/2015 (Quantity not on file) Insurance Payer Benefit Plan / Subscriber ID Effective Phone Address T ype Group Dates alike [id number] 2013-Pres [phone] [address] O OPEN ACCESS ent [address] [place] [address] Advance Directives For more information, please contact: [phone] Latest Code Status on File Code Status Date Activated Date Inactivated Comments Full Code 10/03/2015 3:40 PM Code Status History Code Status Date Activated Date Inactivated Comments Full Code 10/01/2015 6:21 PM 10/03/2015 3:40 PM Care Teams Coronary Clinical Specialist Relationship Specialty Start Date End Date Harriet Haley MD PCP - General Physician Spear Fisher 10/01/15 [facility] [address] [place] [address]
--- OUTSIDE RECORDS SUMMARY | 2022-06-23 00:52 | XMS_ITS | Encounter Summary ---
:1965 Author Organization [employer] Address [address] [place] [address] Care Team Providers Name Role Phone Needs Pcp, Assignment Primary Care Provider Encounter Details Date Type Department Care Team Description 12/03/2021 delfina Nickerson [phone] Social History Tobacco Use Types Packs/Day Years [...] try an antibiotic. I [facility] . I've also listed a few of [...] dissolved in water. Refills: None Sent To: [facility] [address] [phone] Treatment Plan Self Care Tip Topics Warm [...] Bactrim (sulfamethoxazole-trimethoprim), oral Augmentin (amoxicillin-pot clavulanate), oral Always Prepped Information [facility] by [employer] We are an online clinic open 02/03. If you have any questions or comments about this visit, please call or email [email or web address]. documented in this encounter Plan of Treatment Not on filedocumented as of this encounter Visit Diagnoses Not on filedocumented in this encounter Care Teams Print Shop Manager Relationship Specialty Start Date End Date Needs Pcp, Assignment PCP - General 11/15/21 [place] [address] documented as of this encounter
--- OUTSIDE RECORDS SUMMARY | 2022-06-23 00:52 | XMS_ITS | Encounter Summary ---
:1965 Author Organization [employer] Address [address] [place] [address] Care Team Providers Name Role Phone Unavailable Primary Care Provider Unavailable Encounter Details Date Type Department Care Team Description 06/26/2021 delfina Nickerson [phone] Social History Tobacco Use Types Packs/Day Years [...] antibiotic for your bladder infection (UTI) to [facility] in [place] as you requested. The antibiotic that I [...] try an antibiotic. I sent a prescriptionto [facility] . I've also listed a few of [...] 1 day Note: Refills: None Sent To: [facility] [address] [place], [place] [phone] Treatment Plan Self Care Tip Topics Warm [...] Bactrim (sulfamethoxazole-trimethoprim), oral Augmentin (amoxicillin-pot clavulanate), oral [facility] Information [facility] [employer] We are an online clinic open 02/03. If you have any questions or comments about this visit, please call or email [email or web address]. STANT PROFESSOR OF MATHEMATICS documented in this encounter Plan of Treatment Not on filedocumented as of this encounter Visit Diagnoses Not on filedocumented in this encounter
--- OUTSIDE RECORDS SUMMARY | 2022-06-23 00:52 | XMS_ITS | Encounter Summary ---
:1965 Author Organization [employer] Address [address] [place] [address] Care Team Providers Name Role Phone Unavailable Primary Care Provider Unavailable Reason for Visit Reason Comments INFECTION, KIDNEY VOMITING Encounter Details Date Type Department Care Team Description 03/18/2020 Nurse Triage Careline Unknown, INFECTION, KIDNEY; [address] Physician VOMITING [place], [place] [address] [phone] [place], [place] [phone] Social History Tobacco Use Types Packs/Day Years Used Date Smoking Tobacco: Never Assessed Sex Assigned at Date Recorded Not on file documented as of this encounter Nursing Notes Sarina Burdick RN - 03/18/2020 11:09 AM CDT Reason for Disposition ??? Patient sounds very sick or weak to the triager Protocols used: URINARY TRACT INFECTION ON ANTIBIOTIC FOLLOW-UP CALL - [id number] Pt to go back to Er at [facility] due to cloudy urine and back pain [...]
--- OUTSIDE RECORDS SUMMARY | 2022-06-23 00:52 | XMS_ITS | Encounter Summary ---
:1965 Author Organization [place] Address [address] [facility] [place] [address] Care Team Providers Name Role Phone Harriet Haley MD Primary Care Provider [phone] Reason for Visit Reason Comments Urgent Care Pt c/o urinary pain and frqu ency started this afternoon. Encounter Details Date Type Department Care Team Description 11/13/2017 Office Visit [facility] Kirsten Batista NP Dysuria (Primary Dx); Urgent Care [facility] [address] [place] [address] Nonspecific finding on examination of ur ine; [address] [place], [place] Urinary tract infection with out hematuria, [place] [phone] Social History Tobacco Use Types Packs/Day [...] Culture Aerobic Bacterial (11/13/2017 8:16 PM CDT) [facility] gist Method Time Signature Specimen Midstream INFECTIOUS [...] Code Phon e Number INFECTIOUS DISEASES [address] [place] [address] DIAGNOSTIC LABORATORY, [facility] INFECTIOUS DISEASE [address] [place] [address], [facility] DIAGNOSTIC LAB[facility]ORY (ABNORMAL) Urine Microscopic (11/13/2017 7:48 PM CDT) athologist Signature WBC Urine 10-25 (A) OTO5^0 - 5 11/13/2017 [facility] /HPF 8:13 PM CDT [facility] Comment: Interfering substances, dipstic k not done RBC Urine O - 2 OTO2^O - 2 11/13/2017 8:13 PM [facility] /HPF CDT [facility] Squamous Epithelial Few FEW^Few /LPF 11/13/2017 8:13 P [facility] /LPF Urine CDT [facility] Bacteria Urine Moderate (A) NEG^Negative 11/13/2017 8:13 PM [facility] /HPF CDT [facility] Specimen Anatomical Collection Method Collection Time Receive d Time (Source) Location / / Volume Laterality 11/13/2017 7:48 PM 8 7:49 CDT PM CDT Kirsten Batista FIELD ASSOCIATE LAB - URINE ORDERABLES Performing Organization Address City/State/ZIP Code Phon e Number [facility] [phone] [place] [address] documented in this encounter Visit Diagnoses Diagnosis Dysuria - Primary Nonspecific finding on examination of ur ine Other nonspecific finding on examination of urine Urinary tract infection without hematuri a, site unspecified documented in this encounter Care Teams Software Applications Developer Relationship Specialty Start Date End Date Harriet Haley MD PCP - General Physician Internal Revenue Service Agent 10/01/15 [facility] [address] [place] [address] documented as of this encounter
--- OUTSIDE RECORDS SUMMARY | 2022-06-23 00:52 | XMS_ITS | Encounter Summary ---
:1965 Author Organization [employer] Address [address] [place] [address] Care Team Providers Name Role Phone Unavailable Primary Care Provider Unavailable Encounter Details Date Type Department Care Team Description 12/07/1995 PN Conversion Only [place] [address] [place] [address] (Wo rk) Social History Tobacco [...] NAME:LIZZIE LOYOLA ?CERVICAL CYTOLOGY REPORT Pathology # ??[id number] ?Date Obtained: ?Date Received: LMP: ?11-20-95 CLINICAL [...]
--- OUTSIDE RECORDS SUMMARY | 2022-06-23 00:52 | XMS_ITS | Encounter Summary ---
:1965 Author Organization [place] Address [facility] [facility] [place] [address] Care Team Providers Name Role Phone Harriet Haley MD Primary Care Provider [phone] Reason for Visit Reason Comments Urgent Care Pharyngitis Possible strep Encounter Details Date Type Department Care Team Description 04/26/2017 Office Visit [facility] Liu Gates, Throat pain (Primary Urgent Care Shaan kelly MD Dx) [address] [facility] [address] [place] [address] [phone] Social History Tobacco Use Types Packs/Day Years [...] Component Value Ref Test Analysis [facility]formed At [facility] Method Time Signature Specimen Throat [facility] Culture Micro No beta 04/27/2017 [facility] hemolytic 11:45 AM CLINICS Streptococcus CDT [facility] isolated Specimen Anatomical Collection Method Collection Time Receive d Time (Source) Location / / Volume Laterality Specimen from 04/26/2017 11:40 04/26/2017 throat AM CDT 11:41 AM CDT (specimen) Liu Gates MD LAB - MICRO GENERAL ORDERABL ES Performing Organization Address City/State/ZIP Code Phon e Number [facility] [phone] [place] [address] Strep, Rapid Screen (04/26/2017 11:40 AM CDT) Component Value Ref Test Analysis Performed At [facility] Method Time Signature Specimen Throat [facility] Rapid Strep A NEGATIVE: No 04/26/2017 [facility] Screen Group A 11:46 AM [facility] antigen detected by immunoassay, await culture report. Specimen Anatomical Collection Method Collection Time Receive d Time (Source) Location / / Volume Laterality Specimen from 04/26/2017 11:40 04/26/2017 throat AM CDT 11:41 AM CDT (specimen) Liu Gates MD LAB - MICRO GENERAL ORDERABL ES Performing Organization Address City/State/[facility] Code Phon e Number [facility] [phone] [place] [address] documented in this encounter Visit Diagnoses Diagnosis Throat pain - Primary documented in this encounter Care Teams Fire Management Technician Relationship Specialty Start Date End Date Harriet Haley MD PCP - General Physician Forming Machine Upkeep Mechanic Helper 10/01/15 [facility] [address] [facility] [place] [id number] documented as of this encounter
--- OUTSIDE RECORDS SUMMARY | 2022-06-23 00:52 | XMS_ITS | Encounter Summary ---
:1965 Author Organization [employer] Address [address] [place] [address] Care Team Providers Name Role Phone Unavailable Primary Care Provider Unavailable Encounter Details Date Type Department Care Team Description 04/09/2015 ER Follow Up Careline Penny Marino RN [address] [place], [place] [address] [place] [address] [phone] Social History Tobacco Use Types Packs/Day Years [...]
--- OUTSIDE RECORDS SUMMARY | 2022-06-23 00:52 | XMS_ITS | Encounter Summary ---
:1965 Author Organization [facility] Address [address] [place] [address] Care Team Providers Name Role Phone Unavailable Primary Care Provider Unavailable Encounter Details Date Type Department Care Team Description 10/28/2001 PN Conversion Only [facility] [place] [address] [address] [place] [address] [phone] Social History Tobacco Use Types Packs/Day Years [...] 0457 Note Time: 10/28/01 0001 Status: Signed Pattern Duplicator: Luis Enrique Mortensen MD (Physician) IMPRESSION: No dictation required. URI, otalgia. SUBJECTIVE: See Urgent Care shingle of 10/28/01. OBJECTIVE: N/A ASSESSMENT: 1. URI. 2. Otalgia. PLAN: Rapid strep test negative. Symptomatic care discussed using ibuprofen, Tylenol, fluids, and rest. Reassess as needed. TT: CT: DMR:[id number] C: DOCUMENT: [id number] Anjum Armstrong MBBS - 04/29/2001 12:01 AM CDT Progress Notes signed by Anjum Ziegler MD at 06/11/022021 Author: Anjum Ziegler MD Service: (none) Author Type: Physician Filed: 11/28/10 0053 Note Time: 04/29/01 0001 Status: Signed Pattern Duplicator: Anjum Ziegler MD (Physician) IMPRESSION: No dictation [...] days. Return to clinic p.r.n. worsening symptoms. [facility]:[id number] C: DOCUMENT: [id number] Fatimah Valles MD - 05/03/1997 12:01 AM CDT Progress Notes signed by at 05/15/97 1703 Author: Fatimah Diego MD Service: (none) Author Type: (none) Filed: 11/27/10 0105 Note Time: 05/03/97 0001 Status: Signed Pattern Duplicator: Graciela Salazar IMPRESSION: Headache with neck stiffness. [...] Care and admitted her to the hospital. [facility] NA Salazar [facility] - 03/02/1997 12:01 AM CDT Progress Notes signed by at 06/11/022021 Author: Graciela Conversion Service: (none) Author Type: (none) Filed: 11/27/10 0018 Note Time: 03/02/97 0001 Status: Signed Pattern Duplicator: Graciela Salazar IMPRESSION: No dictation required. SUBJECTIVE: N/A OBJECTIVE: N/A ASSESSMENT: N/A PLAN: N/A [facility] SCHEDULED RESOURCE: JAMAAL BLANCAS / JÚNIOR. Rosie Colunga MD - 01/04/1997 12:01 AM CDT Progress Notes signed by Rosie Montano MD at 01/19/97 1236 Author: Rosie Montano MD Service: (none) Author Type: Physician Filed: 11/26/10 8381 Note Time: 01/04/97 0001 Status: Signed Pattern Duplicator: Rosie Montano MD (Physician) IMPRESSION: Urinary tract infection. SUBJECTIVE: 30-year-old female had urinary symptoms starting a week ago. She was seen and prescription was Septra for bladder infection. [place] a little better for 2 days but [...] Service: (none) Author Type: Physician Filed: 11/26/10 1273 Note Time: 12/29/96 0001 Status: Signed Pattern Duplicator: Brandon Wagner MD (Physician) IMPRESSION: Cystitis. SUBJECTIVE: Ywnhfu-cen-cmvz-old female who is complaining of urinary frequency, [...] Service: (none) Author Type: Physician Filed: 11/26/10 5921 Note Time: 11/14/96 0001 Status: Signed Pattern Duplicator: Darshan Dumont MD (Physician) IMPRESSION: Urticaria. SUBJECTIVE: 31-year-old who broke out in hives on Thursday. 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 She was ill [...] Service: (none) Author Type: Physician Filed: 11/26/10 1750 Note Time: 10/05/96 0001 Status: Signed Pattern Duplicator: Shayy Frias MD (Physician) IMPRESSION: Urinary tract [...] 11/26/102123 Note Time: 06/22/96 0001 Status: Signed Pattern Duplicator: Kimberly Vences MD (Physician) IMPRESSION: Pelvic pain [...] tests are back and she sees a boat wrapper. She will set up an appointment to be rechecked at the end of this week or early next week. TJ Evie Iqbal MD - 06/03/1996 12:01 AM CDT Progress Notes signed by Evie Vyas MD at 06/19/96 1643 Author: Evie Vyas MD Service: (none) Author Type: Physician Filed: 11/26/102111 Note Time: 06/03/96 0001 Status: Signed Pattern Duplicator: Evie Vyas MD (Physician) IMPRESSION: Mild acne, [...] PLAN: N/A. cc: Evie Vyas M.D., Dermatology, [place]. [facility]/jmn-[id number] PORT SUPPORT MANAGER [facility], [facility] - 02/03/1996 12:01 AM CDT Progress Notes signed by at 06/11/022021 Author: Graciela Conversion Service: (none) Author Type: (none) Filed: 11/26/102001 Note Time: 02/03/96 0001 Status: Signed Pattern Duplicator: Graciela Salazar IMPRESSION: No dictation required. SUBJECTIVE: N/A OBJECTIVE: N/A ASSESSMENT: N/A PLAN: N/A [facility] SCHEDULED RESOURCE: JAMAAL BLANCAS / JÚNIOR. PORT SUPPORT MANAGER Conversion, [facility] - 12/02/1995 12:01 AM CDT Progress Notes signed by at 06/11/022021 Author: Graciela Conversion Service: (none) Author Type: (none) Filed: 11/26/101925 Note Time: 12/02/95 0001 Status: Signed Pattern Duplicator: Graciela Salazar IMPRESSION: No dictation required. SUBJECTIVE: N/A OBJECTIVE: N/A ASSESSMENT: N/A PLAN: N/A [facility] SCHEDULED RESOURCE: JAMAAL BLANCAS / JÚNIOR. Darshan Padilla MD - 10/19/1995 12:01 AM CST Progress Notes signed by Darshan Dumont MD at 11/01/95 1626 Author: Darshan uDmont MD Service: (none) Author Type: Physician Filed: 11/26/10 1900 Note Time: 10/19/95 0001 Status: Signed Pattern Duplicator: Darshan Dumont MD (Physician) IMPRESSION: Hip and knee contusions. 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 Otitis [...] of improvement in 3-5 days, she should picking table worker some bbek-gxg-rzocxuv Lotrimin. Also suggested using Bacitracin in the nose b.i.d., and add humidity to her home. [facility] Darshan Padilla MD - 04/15/1995 12:01 AM CDT Progress Notes signed by Darshan Dumont MD at 05/08/952029 Author: Darshan Dumont MD Service: (none) Author Type: Physician Filed: 11/26/10 1738 Note Time: 04/15/95 0001 Status: Signed Pattern Duplicator: Darshan Dumont MD (Physician) IMPRESSION: Ankle strain/contusion. SUBJECTIVE: [...] Discussed symptomatic therapy. Follow up as needed. [facility] documented in this encounter Plan of Treatment Not on filedocumented as of this encounter Procedures Procedure Name Priority Date/Time Associated Comments Diagnosis STREP GROUP A Routine 10/28/2001 8:53 PM Results for this ANTIGEN TEST PASSPORT SUPPORT MANAGER procedure are i n the results section. BETA STREP FOLLOWUP Routine 10/28/2001 8:53 PM Re sults for this PASSPORT SUPPORT MANAGER procedure are i n the results section. ANC RESULT Routine 05/03/1997 4:17 PM Results f or this CONVERSION DEFAULT CDT procedure are in ORDER the results section. ANC RESULT Routine 10/19/1995 12:08 PM Results for this CONVERSION DEFAULT PASSPORT SUPPORT MANAGER procedure are in ORDER the results section. ANC RESULT Routine 10/19/1995 12:08 PM Results for this CONVERSION DEFAULT PASSPORT SUPPORT MANAGER procedure are in ORDER the results section. ANC RESULT Routine 04/15/1995 9:47 AM Results f or this CONVERSION DEFAULT CDT procedure are in ORDER the results section. documented in this encounter Results Strep Group A Antigen Test (10/28/2001 8:53 PM PASSPORT SUPPORT MANAGER) Analysis Performed At [facility] Time Signature Strep Group A Negative Negative HP CONVERSION Antigen Test Comment: Culture to follow. Specimen (Source) Anatomical Collection Method Collection Time Re ceived Time Location / / Volume Laterality 10/28/2001 8:53 PM PASSPORT SUPPORT MANAGER Luis Enrique M Festus MD LAB_1 Performing Organization Address City/State/ZIP Code Phon e Number HP CONVERSION Beta Strep Followup (10/28/2001 8:53 PM PASSPORT SUPPORT MANAGER) athologist Signature Strep Screen SEE TEXT HP CONVERSION Comment: Patient: MARIUSZ LOYOLA Rapid Strep Follow up Culture @ ? Collected: ?2052 Source: Throat ?Processed: ?2053 ? 1V Final Report ------ ?[id number] ??1332 No beta hemolytic Strep group A isolated . @ = Rapid F/U Cult Performed at ??[address] [place] ?[address] Specimen (Source) Anatomical Collection Method Collection Time Re ceived Time Location / / Volume Laterality 10/28/2001 8:53 PM PASSPORT SUPPORT MANAGER Luis Enrique Mortensen MD LAB_1 Performing Organization [...] Result Conversion Default Order (10/19/1995 12:08 PM PASSPORT SUPPORT MANAGER) Anatomical Region Laterality Modality Other Specimen (Source) Anatomical Location Collection Method / Collectio n Time Received Time / Laterality Volume Narrative 10/19/1995 12:08 PM PASSPORT SUPPORT MANAGER CLINICAL DATA: ?FELL ON THE ICE THIS [...] Result Conversion Default Order (10/19/1995 12:08 PM PASSPORT SUPPORT MANAGER) Anatomical Region Laterality Modality Other Specimen (Source) Anatomical Location Collection Method / Collectio n Time Received Time / Laterality Volume Narrative 10/19/1995 12:08 PM PASSPORT SUPPORT MANAGER CLINICAL DATA: ?FELL ON THE ICE THIS [...]
--- OUTSIDE RECORDS SUMMARY | 2022-06-23 00:52 | XMS_ITS | Encounter Summary ---
:1965 Author Organization [facility] Address [address] [place] [address] Care Team Providers Name Role Phone Unavailable Primary Care Provider Unavailable Encounter Details Date Type Department Care Team Description 05/01/2003 PN Conversion Only TIRE MOLD TESTER 38[address] [place] [address] Social History Tobacco Use Types Packs/Day Years Used Date Smoking Tobacco: Never Assessed Sex Assigned at Date Recorded Not on file documented as of this encounter Plan of Treatment Not on filedocumented as of this encounter Visit Diagnoses Not on filedocumented in this encounter
--- OUTSIDE RECORDS SUMMARY | 2022-06-23 00:52 | XMS_ITS | Encounter Summary ---
:1965 Author Organization [facility] Address [address] [place] [address] Care Team Providers Name Role Phone Unavailable Primary Care Provider Unavailable Encounter Details Date Type Department Care Team Description 10/10/2005 PN Conversion Only [place] [facility] [address] [facility] [place] [address] Social History Tobacco Use Types Packs/Day Years Used Date Smoking Tobacco: Never Assessed Sex Assigned at Date Recorded Not on file documented as of this encounter Plan of Treatment Not on filedocumented as of this encounter Visit Diagnoses Not on filedocumented in this encounter
--- OUTSIDE RECORDS SUMMARY | 2022-06-23 00:52 | XMS_ITS | Clinical Summary ---
:1965 Author Organization [employer] Address [address] [place] [address] Care Team Providers Name Role Phone Needs [...] for each transition of care or referral. [employer] Allergies Active Allergy Reactions Severity Noted Date [...] Effective Dates Phone Addre ss Type Group [facility] HP SELF INSURED [id number] 2018-Present Commercial Care Teams Geriatric Physical Therapist Relationship Specialty Start Date End Date Needs Pcp, Assignment PCP - General 11/15/21 [place] [address]
--- OUTSIDE RECORDS SUMMARY | 2022-06-23 00:52 | XMS_ITS | Encounter Summary ---
:1965 Author Organization [facility] Address [address] [place] [address] Care Team Providers Name Role Phone Harriet Haley MD Primary Care Provider [phone] Encounter Details Date Type Department Care Team Description 04/15/2017 Radiant Appointment [facility] [place] [address] [address] [id number] Social History Tobacco Use Types Packs/Day Years [...] toes. 2. No fracture or malalignment. YONATAN HAMLNI MD Narrative 04/16/2017 4:52 PM CDT RIGHT [...] limb documented in this encounter Care Teams Nonprofit Director Relationship Specialty Start Date End Date Harriet Haley MD PCP - General Physician Forest Aide 10/01/15 [facility] [address] [place] [address] documented as of this encounter
--- OUTSIDE RECORDS SUMMARY | 2022-06-23 00:53 | XMS_ITS | Encounter Summary ---
:1965 Author Organization [facility] Address [facility] [place] [address] Care Team Providers Name Role Phone Harriet Haley MD Primary Care Provider [phone] Encounter Details Date Type Department Care Team Description 05/08/2016 Radiant Appointment [facility] Karlie Gates of left lower Clinic Menno MD [place] extremity [address] [address] [facility] [phone] [place] [address] Social History Tobacco Use Types Packs/Day [...] extremity documented in this encounter Care Teams Upper Leather Cutter Relationship Specialty Start Date End Date Harriet Haley MD PCP - General Physician Golf Teacher 10/01/15 [facility] [address] [facility] [place] [address] documented as of this encounter
--- OUTSIDE RECORDS SUMMARY | 2022-06-23 00:53 | XMS_ITS | Encounter Summary ---
:1965 Author Organization [place] Address [facility]0 [facility] [place] [address] Care Team Providers Name Role Phone Harriet Haley MD Primary Care Provider [phone] Encounter Details Date Type Department Care Team Description 06/09/2016 Radiant Appointment [facility] Jossy Kilgore tress fracture of Sports and Charleen, DO metatarsal bone of Orthopedic Care [facility] [place] left foot with [facility] routine healing [address] [place] [address] [facility] [address] [place] [address] [phone] Social History Tobacco Use Types Packs/Day Years [...] healing documented in this encounter Care Teams Wreath Inspector Relationship Specialty Start Date End Date Harriet Haley MD PCP - General Physician Dietary Tech 10/01/15 [facility] [address] [place] [address] documented as of this encounter
--- OUTSIDE RECORDS SUMMARY | 2022-06-23 00:53 | XMS_ITS | Encounter Summary ---
:1965 Author Organization [facility] Address [address] [place] [address] Care Team Providers Name Role Phone Harriet Haley MD Primary Care Provider [phone] Encounter Details Date Type Department Care Team Description 02/19/2016 Anesthesia - [facility] [place] [address] [place], [place] [address] [place] [address] [phone] Social History Tobacco Use Types Packs/Day Years [...] Miscellaneous Notes Anesthesia Care Transfer Note - Jfeferson rPuitt - 02/20/2016 10:58 AM CDT Last vitals: [...] on filedocumented in this encounter Care Teams Rigger Third Relationship Specialty Start Date End Date Harriet Haley MD PCP - General Physician Occupational Medicine Officer 10/01/15 [address] [place] [address] documented as of this encounter
--- OUTSIDE RECORDS SUMMARY | 2022-06-23 00:53 | XMS_ITS | Encounter Summary ---
:1965 Author Organization [facility] Address [address] [place] [address] Care Team Providers Name Role Phone Harriet Haley MD Primary Care Provider [phone] Encounter Details Date Type Department Care Team Description 11/05/2015 Anesthesia - [facility] Aaron Carvalho MD [address] [place] [address] [phone] Social History Tobacco Use Types Packs/Day Years [...] on filedocumented in this encounter Care Teams Reprographics Technician Relationship Specialty Start Date End Date Harriet Haley MD PCP - General Physician Dry Cans Back Tender 10/01/15 [facility] [address] [facility] [place] [address] documented as of this encounter
--- OUTSIDE RECORDS SUMMARY | 2022-06-23 00:53 | XMS_ITS | Encounter Summary ---
:1965 Author Organization [place] Address [facility] [place] [address] Care Team Providers Name Role Phone Harriet Haley MD Primary Care Provider [phone] Encounter Details Date Type Department Care Team Description 07/06/2016 Radiant Appointment [facility] Karlie Gates [place] toe [place] [address] [address] [facility] [phone] [place] [address] Social History Tobacco Use Types Packs/Day [...] toe of left Results for this VIEWS ELECTRICAL ASSEMBLY TECHNICIAN foot procedure are i n the results section. documented in this encounter Results XR Foot Left G/E 3 Views (07/06/2016 10:55 AM ELECTRICAL ASSEMBLY TECHNICIAN) Anatomical Region Laterality Modality Foot, Ankle Left Computed Radiography Specimen (Source) Anatomical Location Collection Method / Collectio n Time Received Time / Laterality Volume Impressions 07/06/2016 12:08 PM ELECTRICAL ASSEMBLY TECHNICIAN IMPRESSION: Bones are normally aligned. Moderate inferior calcaneal heel spur. No acute fracture. KANA ORNELAS MD Narrative 07/06/2016 12:08 PM ELECTRICAL ASSEMBLY TECHNICIAN LEFT FOOT THREE OR MORE VIEWS ??07/06/2016 [...] limb documented in this encounter Care Teams Fabric Worker Foreman Relationship Specialty Start Date End Date Harriet Haley MD PCP - General Physician Inside Meter Tester 10/01/15 [facility] [address] [place] [address] documented as of this encounter
--- OUTSIDE RECORDS SUMMARY | 2022-06-23 00:53 | XMS_ITS | Encounter Summary ---
:1965 Author Organization [place] Address [address] [place] [address] Care Team Providers Name Role Phone Harriet Haley MD Primary Care Provider [phone] Reason for Visit Reason Onset Date Comments Swelling 06/12/2016 Encounter Details Date Type Department Care Team Description 06/12/2016 Telephone [facility] Sports Jossy Kilgore, Swelling Medicine Clinic [place] [facility] [address] [address] [facility] [address] [place] [address] [place] [address] [phone] (Wo rk) Social History Tobacco Use Types [...] to patient. 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 Her [...] on filedocumented in this encounter Care Teams Systems Programmer Analyst Relationship Specialty Start Date End Date Harriet Haley MD PCP - General Physician Skiving Machine Operator 10/01/15 [facility] [address] [place] [address] documented as of this encounter
--- OUTSIDE RECORDS SUMMARY | 2022-06-23 00:53 | XMS_ITS | Encounter Summary ---
:1965 Author Organization [facility] Address [address] [facility] [place] [address] Care Team Providers Name Role Phone Harriet Haley MD Primary Care Provider Reason for Visit Reason Comments Urgent Care Musculoskeletal Problem Left foot pain Encounter Details Date Type Department Care Team Description 07/06/2016 Office Visit [facility], Pain o f toe of left Urgent Care Shaan kelly MD foot (Primary Dx) [address] [address] [facility] [place] [address] [id number] Social History Tobacco Use Types Packs/Day Years [...] Comments Blood Pressure 138/74 07/06/2016 10:35 AM DOPE WEIGH OPERATOR Pulse 84 07/06/2016 10:35 AM DOPE WEIGH OPERATOR Temperature 36.9 ??C (98.4 ??F) 07/06/2016 10:35 AM DOPE WEIGH OPERATOR Respiratory Rate 18 07/06/2016 10:35 AM DOPE WEIGH OPERATOR Oxygen Saturation 98% 07/06/2016 10:35 AM DOPE WEIGH OPERATOR Inhaled Oxygen Concentration - - Weight 109.3 kg (241 lb) 07/06/2016 10:35 AM DOPE WEIGH OPERATOR Height 172.7 cm (5' 8) 07/06/2016 10:35 AM DOPE WEIGH OPERATOR Body Mass Index 36.64 07/06/2016 10:35 AM DOPE WEIGH OPERATOR documented in this encounter Progress Notes [place] [...] NSAID, ice suggested See orders in EpicCare. WEIGH OPERATOR documented in this encounter Nursing Notes Jennifer [...] completed using cuff size: chrissy Mohan CMA WEIGH OPERATOR documented in this encounter Plan of Treatment Not on filedocumented as of this encounter Results XR Foot Left G/E 3 Views (07/06/2016 10:55 AM DOPE WEIGH OPERATOR) Anatomical Region Laterality Modality Foot, Ankle Left Computed Radiography Specimen (Source) Anatomical Location Collection Method / Collectio n Time Received Time / Laterality Volume Impressions 07/06/2016 12:08 PM DOPE WEIGH OPERATOR IMPRESSION: Bones are normally aligned. Moderate inferior calcaneal heel spur. No acute fracture. KANA ORNELAS MD Narrative 07/06/2016 12:08 PM DOPE WEIGH OPERATOR LEFT FOOT THREE OR MORE VIEWS ??07/06/2016 [...] limb documented in this encounter Care Teams Impregnating Tank Operator Relationship Specialty Start Date End Date Harriet Haley MD PCP - General Physician Supervisor Treating And Pumping 10/01/15 [facility] [address] [place] [address] documented as of this encounter
--- OUTSIDE RECORDS SUMMARY | 2022-06-23 00:53 | XMS_ITS | Encounter Summary ---
:1965 Author Organization [place] Address [address] [place] [place] [address] Care Team Providers Name Role Phone Harriet Haley MD Primary Care Provider [phone] Reason for Visit Reason Comments Edema right leg swelling/pain, swe lling in both legs x today, also swelling both ankles/feet Encounter Details Date Type Department Care Team Description 06/26/[address] [facility] Roshan Wooten Bilate ral leg edema Urgent Care Shaan Malhotra APRN LEATHER STRIPPING MACHINE OPERATOR (Primary Dx) [address] [facility] [address] [address] [place], [place] [address] [phone] Social History Tobacco Use Types Packs/Day Years [...] Comments Blood Pressure 140/76 06/26/2016 7:50 PM DIAMOND GRINDER Pulse 98 06/26/2016 7:50 PM DIAMOND GRINDER Temperature 36.9 ??C (98.5 ??F) 06/26/2016 7:50 PM DIAMOND GRINDER Respiratory Rate - - Oxygen Saturation 96% 06/26/2016 7:50 PM DIAMOND GRINDER Inhaled Oxygen Concentration - - Weight 97.5 kg (215 lb) 06/26/2016 7:50 PM DIAMOND GRINDER Height 172.7 cm (5' 8) 06/26/2016 7:50 PM DIAMOND GRINDER Body Mass Index 32.69 06/26/2016 7:50 PM DIAMOND GRINDER documented in this encounter Patient Instructions Patient KwabenaRoshan Wooten MELISSA LEATHER STRIPPING MACHINE OPERATOR - 06/26/2016 8:04 PM DIAMOND GRINDER Images from the original note were not [...] from a doctor who is licensed in [place]. After we receive your order, you will have an evaluation by a physical or occupational therapist certified in Complete Decongestive Therapy. For more information about our services, call your local [facility]. You will find phonenumbers on the back of this booklet. [facility] [address] [place] [address] tel: [phone] fax: [phone] [facility] [address] [facility] [place] [address] tel: [phone] fax: [phone] [facility] [address] [place] [address] tel: [phone] (to set up first visit, call [phone]) fax: [phone] [facility] [address] [place] [address] tel: [phone] (to set up first visit, call [phone]) fax: [phone] [facility], [facility] [address] [place] [address] tel: [phone] (to set up first visit, call [phone]) fax: [phone] For informational purposes only. Not to replace the advice of your health care provider. Copyright 2003, 2006 [facility]. All rights reserved. [employer] 103592 REV 09 10. OND GRINDER documented in this encounter Progress Notes Roshan [...] appropriately if negative. Roshan Wooten APRN CNP OND GRINDER documented in this encounter Nursing Notes Dennis [...] using cuff size: regular Dennis Sterling CMA OND GRINDER documented in this encounter Plan of Treatment Not on filedocumented as of this encounter Visit Diagnoses Diagnosis Bilateral leg edema - Primary Edema documented in this encounter Care Teams Insolvency Practitioner Relationship Specialty Start Date End Date Harriet Haley MD PCP - General Physician Risk And Compliance Analytics Director 10/01/15 [facility] [address] [place] [address] documented as of this encounter
--- OUTSIDE RECORDS SUMMARY | 2022-06-23 00:53 | XMS_ITS | Encounter Summary ---
:1965 Author Organization [place] Address [address] [place] [address] Care Team Providers Name Role Phone Harriet Haley MD Primary Care Provider [phone] Reason for Visit Reason Comments RECHECK Encounter Details Date Type Department Care Team Description 05/19/2016 Office Visit [facility] Magui, Jossy Villaseñor, Le ft foot pain (Primary Dx); Sports Medicine DO Stress fracture of metatarsal bone of le ft foot with routine healing Clinic [facility] [address] [facility] SPORTS MED [address] [address] [place] [address] [facility] [address] [place], [place] [address] (Wo rk) Social History [...] sooner if needed; call direct clinic number [[phone]] at any time with questions or concerns. Jossy Kilgore DO CAQSM [facility] documented in this encounter Progress Notes Jossy Kilgore DO - 05/19/2016 1:15 PM CDT [facility] Clinic Visit May [...] in 2-3 weeks. Call direct clinic number [phone] at any time with questions or concerns. Instructed to call the office if the condition evolves or worsens. Patient's conditions were thoroughly discussed during today's visit with greater than 50% of the visit spent counseling the patient with total time spent [id number] with the patient being 25 minutes. Jossy Kilgore DO [facility] documented in this [...] healing documented in this encounter Care Teams Courtesy Driver Relationship Specialty Start Date End Date Harriet Haley MD PCP - General Physician Laborer Rags 10/01/15 [facility] [address] [place] [address] documented as of this encounter
--- OUTSIDE RECORDS SUMMARY | 2022-06-23 00:53 | XMS_ITS | Encounter Summary ---
:1965 Author Organization [place] Address [address] [place] [address] Care Team Providers Name Role Phone Harriet Haley MD Primary Care Provider [phone] Reason for Visit Reason Onset Date Comments Foot Pain 07/10/2016 Encounter Details Date Type Department Care Team Description 07/10/2016 Telephone [facility] Jossy Florentino DO Foot Pain Medicine Clinic Burn [facility] [place] [address] [address] [facility] [address] [place] [address] [place] [address] [phone] (Wo rk) Social History Tobacco Use Types [...] left message informing patient. Erasmo Cardona RN LING ASSISTANT Telephone Encounter - Carlos Roth - 07/10/2016 [...] Approved, printed and signed. Jossy Kilgore DO, [facility] LING ASSISTANT Telephone Encounter - Kalyani Cardona RN - [...] compliant in the boot x 4 weeks.?? back tender cloth printing on palpation.?? Continue with boot as previously. [...] to lm Please advise. Erasmo Cardona, RN LING ASSISTANT documented in this encounter Plan of Treatment Not on filedocumented as of this encounter Visit Diagnoses Diagnosis Stress fracture of right foot with routi ne healing, subsequent encounter - Primary documented in this encounter Care Teams Health And Safety Manager Relationship Specialty Start Date End Date Harriet Haley MD PCP - General Physician Night Club Manager 10/01/15 [facility] [address] [place] [address] documented as of this encounter
--- OUTSIDE RECORDS SUMMARY | 2022-06-23 00:53 | XMS_ITS | Encounter Summary ---
:1965 Author Organization [facility] Address [address] [place] [address] Care Team Providers Name Role Phone Harriet Haely MD Primary Care Provider [phone] Reason for Visit Reason Comments RECHECK Encounter Details Date Type Department Care Team Description 06/09/2016 Office Visit [facility] Magui, Jossy Villaseñor, ress fracture of Sports Medicine DO metatarsal bone of [facility] [place] [address] [address] SPORTS MED routine healing [address] (Primary Dx) [place] [address] [address] [place], [place] [address] (Wo rk) Social History [...] (sooner if needed; call direct clinic number [[phone]] at any time with questions or concerns) Jossy Kilgore DO CAQSM [facility] documented in this encounter Progress Notes Jossy Kilgore DO - 06/09/2016 1:02 PM CDT [facility] Clinic Visit Jun [...] in 4 weeks. Call direct clinic number [phone] at any time with questions or concerns.Instructed to call the office if the condition evolves or worsens. Patient's conditions were thoroughly discussed during today's visit with greater than 50% of the visit spent counseling the patient with total time spent [id number] with the patient being 25 minutes. Jossy Kilgore DO CAQSM [facility] documented in this [...] Primary documented in this encounter Care Teams Technical Marketing Engineer Relationship Specialty Start Date End Date Harriet Haley MD PCP - General Physician Track Announcer 10/01/15 [facility] [address] [place] [address] documented as of this encounter
--- OUTSIDE RECORDS SUMMARY | 2022-06-23 00:53 | XMS_ITS | Encounter Summary ---
:1965 Author Organization [facility] Address [address] [place] [address] Care Team Providers Name Role Phone Harriet Haley MD Primary Care Provider [phone] Reason for Visit (Routine) - Closed Specialty Diagnoses / Procedures Referred By Contact Refer red To Contact Radiology / Radiology. Diagnoses sb pt [place] [address] [facility] [address] [place] [address] Phone: Fax: Referral ID Status Reason Start Date Expiration Date Visits Requ ested Visits Authorized [id number] Closed 05/16/2016 05/12/2017 1 1 Encounter Details Date Type Department Care Team Description 05/16/2016 Hospital Encounter [facility] Kilgore, Jossy Br [place]e, [place] [address] [facility] [place] [place] [address] [place] [address] [address] [address] [place], [place] [address] (Wo rk) Social History [...] above. YEMI COATES MD Jossy Kilgore DO [facility] MRI ORDERABLES documented in this encounter Visit Diagnoses Diagnosis Left foot pain Pain in limb documented in this encounter Care Teams Parks And Recreation Manager Relationship Specialty Start Date End Date Harriet Haley MD PCP - General Physician Group Home Paraprofessional 10/01/15 [facility] [address] [place] [address] documented as of this encounter
--- OUTSIDE RECORDS SUMMARY | 2022-06-23 00:53 | XMS_ITS | Encounter Summary ---
:1965 Author Organization [facility] Address [facility] [place] [address] Care Team Providers Name Role Phone Harriet Haley MD Primary Care Provider [phone] Reason for Visit Reason Onset Date Comments Procedure 2015 LESI Encounter Details Date Type Department Care Team Description 2015 [facility] Pain Pain Management Pr ocedure (LESI) Management [facility] [address] [place] [address] [address] [place] [address] Social History Tobacco Use Types [...] pt to schedule LESI, lvm. Babita Rosado Computer Systems Information Director [facility] [place] Telephone Encounter - Babita Rosado - 2015 8:37 AM CDT Called pt to schedule LESI, LVM. Babita Rosado Computer Systems Information Director [facility] [place] Telephone Encounter - Alfreda Segura - 2015 8:14 AM CDT Order received from [facility] for TF LESI. Order scanned to telephone encounter, routing to scheduling coordinators to contact patient. Alfreda Segura Computer Systems Information Director [facility] Management Clinic documented in this encounter Plan of Treatment Not on filedocumented as of this encounter Visit Diagnoses Not on filedocumented in this encounter Care Teams Solder Cream Maker Relationship Specialty Start Date End Date Harriet Haley MD PCP - General Physician Traffic Superintendent 10/01/15 [facility] [address] [place] [address] documented as of this encounter
--- OUTSIDE RECORDS SUMMARY | 2022-06-23 00:53 | XMS_ITS | Encounter Summary ---
:1965 Author Organization [place] Address [address] [place] [address] Care Team Providers Name Role Phone Harriet Haley MD Primary Care Provider [phone] Reason for Visit Reason Onset Date Comments Patient/info Update 06/25/2016 Encounter Details Date Type Department Care Team Description 06/25/2016 Telephone [facility] Jossy Kilgore Pa tient/info Update Sports Medicine Clinic DO [place] [facility] SP[facility] [address] [facility] MED [address] [address] [place] [address] [facility] [address] [place], [place] [address] (Wo rk) Social History [...] phone call. Closing encounter. Carlos Roth ATC R TECHNICIAN Telephone Encounter - John Solano - 06/25/2016 [...] further questions or concerns. John Solano ATC R TECHNICIAN documented in this encounter Plan of Treatment Not on filedocumented as of this encounter Visit Diagnoses Not on filedocumented in this encounter Care Teams Dark Room Attendant Relationship Specialty Start Date End Date Harriet Haley MD PCP - General Physician Haul Truck Driver 10/01/15 [facility] [address] [place] [address] documented as of this encounter
--- OUTSIDE RECORDS SUMMARY | 2022-06-23 00:53 | XMS_ITS | Encounter Summary ---
:1965 Author Organization [place] Address [facility] [place] [address] Care Team Providers Name Role Phone Harriet Haley MD Primary Care Provider [phone] Reason for Visit Reason Comments Urgent Care Pharyngitis Encounter Details Date Type Department Care Team Description 09/28/2016 Office Visit [facility] Briana Banuelos Throat p ain (Primary Dx); Urgent Care Shaan Peres MD Influenza-like illness [address] [facility] [address] [place] [address] Social History Tobacco Use [...] Comments Blood Pressure 136/78 09/28/2016 2:53 PM APPLICATION SUPPORT TECHNICIAN Pulse 97 09/28/2016 2:53 PM APPLICATION SUPPORT TECHNICIAN Temperature 36.8 ??C (98.3 ??F) 09/28/2016 2:53 PM APPLICATION SUPPORT TECHNICIAN Respiratory Rate 16 09/28/2016 2:53 PM APPLICATION SUPPORT TECHNICIAN Oxygen Saturation 97% 09/28/2016 2:53 PM APPLICATION SUPPORT TECHNICIAN Inhaled Oxygen Concentration - - Weight 99.8 kg (220 lb) 09/28/2016 2:53 PM APPLICATION SUPPORT TECHNICIAN Height 172.7 cm (5' 8) 09/28/2016 2:53 PM APPLICATION SUPPORT TECHNICIAN Body Mass Index 33.45 09/28/2016 2:53 PM APPLICATION SUPPORT TECHNICIAN documented in this encounter Patient Instructions Patient InstructionsBriana Banueols MD - 09/28/2016 3:15 PM CST Images [...] disease. ?? People who live in a senior care or long-term care facility. How Is the [...] Or, clean your hands with an alcohol-based hand??mainspring barrel assembly cleaner containing at least 60 percent alcohol. [...] and open the door. Using Alcohol-Based Hand Working Second Hand Alcohol-based hand??elevator operator freight are also a good choice. Use them [...] their hands or use an alcohol-based hand mainspring barrel assembly cleaner before and after treating each patient. ?? People with the flu have private rooms and bathrooms or share a room with someone with the same infection. ?? High-risk patients who don???t have the flu are encouraged to get the??flu and pneumonia vaccines. ?? All health care workers are encouraged or required to??get flu shots. ? [id number] [employer]. [address] [place] [address]. All rights reserved. This information is not intended as a substitute for professional medical care. Always follow your healthcare professional's instructions. ICATION SUPPORT TECHNICIAN documented in this encounter Progress Notes Briana [...] against the influenza virus. note for work ICATION SUPPORT TECHNICIAN documented in this encounter Nursing Notes Jennifer [...] (99.8 kg). Medication Reconciliation: complete Jennifer Mohan IN STORE MARKETER ICATION SUPPORT TECHNICIAN documented in this encounter Plan of Treatment Not on filedocumented as of this encounter Procedures Procedure Name Priority Date/Time Associated Diagnosis Comme nts RAPID STREP SCREEN Routine 09/28/2016 2:58 PM Throat pain Res ults for this THROAT SWAB APPLICATION SUPPORT TECHNICIAN procedure are i n the results section. BETA HEMOLYTIC Routine 09/28/2016 2:58 PM Throat pain Results for this STREP GROUP A APPLICATION SUPPORT TECHNICIAN procedure are in CULTURE the results section. documented in this encounter Results Beta strep group A culture (09/28/2016 2:58 PM APPLICATION SUPPORT TECHNICIAN) Component Value Ref Test Analysis Performed At [facility] Range Method Time Signature Specimen Throat [place] Description [facility] Culture Micro No Beta [place] Streptococcus [facility] isolated [place] Micro Report FINAL 09/30/2016 [place] Status [facility] Specimen Anatomical Collection Method Collection Time Receive d Time (Source) Location / / Volume Laterality Specimen from 09/28/2016 2:58 PM 09/28/19 17 2:59 throat APPLICATION SUPPORT TECHNICIAN PM APPLICATION SUPPORT TECHNICIAN (specimen) Briana Banuelos MD LAB - MICRO GENERAL ORDERABL ES Performing Organization Address City/State/ZIP Code Phon e Number [facility] [address] [place] [address] Strep, Rapid Screen (09/28/2016 2:58 PM APPLICATION SUPPORT TECHNICIAN) Component Value Ref Test Analysis Performed At [facility] gist Range Method Time Signature Specimen Throat [place] Description [facility] Rapid Strep A NEGATIVE: No Group A strepto coccal antigen detected by immunoassay, await [place] Screen culture report. [facility] Micro Report FINAL 09/28/2016 [place] Status [facility] Specimen Anatomical Collection Method Collection Time Receive d Time (Source) Location / / Volume Laterality Specimen from 09/28/2016 2:58 PM 09/28/19 17 2:59 throat APPLICATION SUPPORT TECHNICIAN PM APPLICATION SUPPORT TECHNICIAN (specimen) Briana Banuelos MD LAB - MICRO GENERAL ORDERABL ES Performing Organization Address City/State/ZIP Code Phon e Number [facility] [address] [place] [address] documented in this encounter Visit Diagnoses Diagnosis Throat pain - Primary Influenza-like illness Influenza with other respiratory manifes tations documented in this encounter Care Teams Workers' Compensation Claims Supervisor Relationship Specialty Start Date End Date Harriet Haley MD PCP - General Physician Linux Support Engineer 10/01/15 [facility] [address] [place] [address] documented as of this encounter
--- OUTSIDE RECORDS SUMMARY | 2022-06-23 00:53 | XMS_ITS | Encounter Summary ---
:1965 Author Organization [place] Address [address] [place] [address] Care Team Providers Name Role Phone Harriet Haley MD Primary Care Provider [phone] Encounter Details Date Type Department Care Team Description 11/05/2015 Hospital Encounter [facility] Pako Cid S UI (stress urinary [facility] incontinence, [place] OR [facility] UROLOG[facility] female) [address] [place] [address] [place] [address] Social History Tobacco Use Types [...] Lizzie Roslyn He was visited by Resident Customer Service Cashier and received prayer and blessingas appropriate for [...] AM CDT FULL OPERATIVE NOTE [facility] Name: Lizzie He : 1965 Date: 11/05/2015 at 9:34 AM Preop Diagnosis: 1. Recurrent Stress Urinary Incontinence. 2. Pelvic Pain / Pelvic floor muscle dysfunction. Postop Diagnosis: 1. Recurrent Stress Urinary Incontinence. 2. Pelvic Pain / Pelvic floor muscle dysfunction. 3. Urethral Injury (Urethrostomy). Procedure: 1. Cystoscopy. 2. Retropubic Midurethal Sling Placement (SPARC) Placement and removal. 3. Urethral Injury Repair Surgeon:Pako Cid MD. Commercial Baker Helper: Aliyah Becker MD. Drain: 16Fr sneed EBL: [...] heal, follow up in 2 weeks at [facility] with Dr Cid for removal of sneed. Call for appointment / keep return visit scheduled appointment. [phone]. Will consider placing a new mid-urethral sling in at least 3 months after the urethra has healed completely and no evidence of fistula. Aliyah Becker documented in this encounter Plan of Treatment Not on filedocumented as of this encounter Visit Diagnoses Diagnosis OPHELIA (stress urinary incontinence, female ) Female stress incontinence documented in this encounter Care Teams Digital Media Sales Consultant Relationship Specialty Start Date End Date Harriet Haley MD PCP - General Physician Commercial Baker Helper 10/01/[address] [address] documented as of this encounter
--- OUTSIDE RECORDS SUMMARY | 2022-06-23 00:53 | XMS_ITS | Encounter Summary ---
:1965 Author Organization [place] Address [address] [place] [address] Care Team Providers Name Role Phone Harriet Haley MD Primary Care Provider [phone] Encounter Details Date Type Department Care Team Description 02/20/2016 Hospital Encounter [facility] Pako Cid P ost-operative [facility] OR [facility] [place] [address] [place] [address] Social History Tobacco Use Types [...] AM CDT Operative note Date: 02/20/2016 Site: [facility] Surgeon: Pako Cid M.D. Assist: Chichi [...] correctly identify the patient. Once accomplished, a [place] retractor was used to gain access to [...] status documented in this encounter Care Teams Explosive Operator Bomb Relationship Specialty Start Date End Date Harriet Haley MD PCP - General Physician Automobile Service Advisor 10/01/[address] [address] documented as of this encounter
--- OUTSIDE RECORDS SUMMARY | 2022-06-23 00:53 | XMS_ITS | Encounter Summary ---
:1965 Author Organization [place] Address [facility] [place] [address] Care Team Providers Name Role Phone Harriet Haley MD Primary Care Provider Reason for Visit [facility] Physical Therapy (Routine) - Closed Specialty Diagnoses / Procedures Referred By Contact Refer red To Contact Mumtaz Rushing MD [facility] Sports & [facility] Physical Therapy - [address] [place], [place] [address] [place] [address] Phone: Fax: Referral ID Status Reason Start Date Expiration Date Visits Requ ested Visits Authorized [facility]O/HP/LBP Closed 03/26/2016 08/09/2016 18 16 Encounter Details Date Type Department Care Team Description 03/26/2016 Therapy Visit [facility] Gerardo Cavazos Chron ic bilateral Rehabilitation Services PT low back pain with [facility] left-sided sciatica [address] [facility] ATHLETIC MEDICINE (Primary Dx) [place] [address] [address] [address] [place], [place] [phone] [address] Social History Tobacco Use Types Packs/Day [...] min Extension (EXT): mod and pain [place] R (SG R): min and pain [place] L (SG L): mod and pain Test [...] Sheet for this information) 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: (See Goal Flow Sheet for this [...] Procedure Name Priority Date/Time Associated Diagnosis Comme [facility] Z THERAPEUTIC Routine 03/26/2016 6:31 PM Chronic Bilateral L ow EXERCISES CDT Back Pain With Left-Sided Sciatica documented in this encounter Visit Diagnoses Diagnosis Chronic bilateral low back pain with lef t-sided sciatica - Primary documented in this encounter Care Teams Tableau Administrator Relationship Specialty Start Date End Date Harriet Haley MD PCP - General Physician Cloud Infrastructure Architect 10/01/15 [facility] [address] [place] [address] documented as of this encounter
--- OUTSIDE RECORDS SUMMARY | 2022-06-23 00:53 | XMS_ITS | Encounter Summary ---
:1965 Author Organization [place] Address [facility] [place] [address] Care Team Providers Name Role Phone Harriet Haley MD Primary Care Provider [phone] Reason for Referral Consultation - Closed Specialty Diagnoses / Procedures Referred By Contact Refer red To Contact Orthopedics and Sports Diagnoses Pain of left lower extremity Liu Gates MD [facility] [address] [facility]?? [address] [place] [employer] [address] [place] [address] Phone: Fax: Referral ID Status Reason Start Date Expiration Date Visits Requ ested Visits Authorized [id number] Closed 05/08/2016 05/08/2017 1 1 Reason for Visit Reason Comments Urgent Care Foot Injury Encounter Details Date Type Department Care Team Description 05/08/2016 Office Visit [facility] Liu Gates, Pain o f left lower Urgent Care Shaan kelly MD extremity (Primary Dx) [address] [facility] [address] [place] [address] [phone] Social History Tobacco Use Types Packs/Day Years [...] boot on left foot. Was seen at [facility] urgent care last Thursday. Taking ibuprofen for [...] fractures and continuing pain Liu Gates MD [facility] documented in this encounter Nursing [...] BP completed using cuff size: mamadou Mohan WELDER FITTER HELPER documented in this encounter Plan of [...] extremity documented in this encounter Care Teams Green Building Design Specialist Relationship Specialty Start Date End Date Harriet Haley MD PCP - General Physician Fourdrinier Machine Tender 10/01/15 [facility] [address] [place] [address] documented as of this encounter
--- OUTSIDE RECORDS SUMMARY | 2022-06-23 00:53 | XMS_ITS | Encounter Summary ---
:1965 Author Organization [place] Address [address] [place] [address] Care Team Providers Name Role Phone Harriet Haley MD Primary Care Provider [phone] Encounter Details Date Type Department Care Team Description 11/05/2015 Surgery - [facility] Marco Antonio Cid MD [facility] UROLOGIC [place] OR SPECIALISTS [facility] [place] [phone] [place] [address] (Wo rk) Social History Tobacco [...] on filedocumented in this encounter Care Teams Drywall Hanger Relationship Specialty Start Date End Date Harriet Haley MD PCP - General Physician Flag Football Coach 10/01/15 [facility] [address] [place] [address] documented as of this encounter
--- OUTSIDE RECORDS SUMMARY | 2022-06-23 00:53 | XMS_ITS | Encounter Summary ---
:1965 Author Organization [place] Address [address] [place] [address] Care Team Providers Name Role Phone Harriet Haley MD Primary Care Provider [phone] Reason for Visit Reason Comments Post-op Problem Encounter Details Date Type Department Care Team Description 11/13/2015 Emergency [facility] Kana Westbrook Low back pain without [facility] MD Diego sciatica, unspecified [address] [facility] back pain laterality [facility] [address] 2591 [facility] [phone] [place], [place] [address] (Wo rk) Social History [...] contain Tylenol?? (acetaminophen), including Vicodin??, Tylenol #3??, [place]??, Lortab??, and Percocet??. You should not take [...] back pain laterality M54.5 Aroldo Heck 11/13/2015 [facility] EMERGENCY DEPARTMENT I, Aroldo Heck, am serving as a scribe at 7:59 PM on 11/13/2015 to document services personally performed by Kana Westbrook MD based on my observations and the provider's statements to me. Kana Westbrook MD 11/18/15 6951 Jacqueline Roman RN - 11/13/2015 7:20 PM [...] Component Value Ref Test Analysis Performed At [facility] Range Method Time Signature Color Urine Light Yellow [facility] Appearance Urine Clear [facility] Glucose Urine Negative NEG [place] mg/dL [facility] Bilirubin Urine Negative NEG [facility] Ketones Urine Negative NEG [place] mg/dL [facility] Specific [place] 1.007 1.003 - [place] Urine 1.035 [facility] Blood Urine Negative NEG [facility] pH Urine 5.0 5.0 - [place] 7.0 pH [facility] Protein Albumin Negative NEG [place] Urine mg/dL [facility] Urobilinogen Normal 0.0 - [place] mg/dL 2.0 [facility] mg/[facility] Nitrite Urine Negative NEG [facility] Leukocyte Small (A) NEG [place] Esterase Urine [facility] Source Catheterized [facility] WBC Urine 2 0 - 2 [place] /HPF [facility] RBC Urine <1 0 - 2 [place] /HPF [facility] Bacteria Urine Few (A) NEG /HPF [facility] Specimen Anatomical Location Collection Method Collection Time Received Time (Source) / Laterality / Volume Urine specimen URINE SPECIMEN 11/13/2015 9:05 11/13/19 16 9:12 (specimen) COLLECTION, PM CDT PM CDT CATHETERIZED / Unknown Kana Westbrook MD LAB - URINE ORDERABLES Performing Organization Address City/[facility]/ZIP [facility] Phon e Number [facility] [address] [place], [place] [address] [facility] [address] [place], [place] [address], [facility] [phone] (ABNORMAL) Basic metabolic panel (11/13/2015 8:11 PM CDT) P athologist Signature Sodium 138 133 - 144 [place] mmol/L [facility] Potassium 4.2 3.4 - 5.3 [place] mmol/L [facility] Chloride 106 94 - 109 [place] mmol/L [facility] Carbon Dioxide 25 20 - 32 [place] mmol/L [facility] Anion Gap 7 3 - 14 [place] mmol/L [facility] Glucose 105 (H) 70 - 99 [place] mg/dL [facility] Urea Nitrogen 13 7 - 30 [place] mg/dL [facility] Creatinine 0.94 0.52 - [place] 1.04 mg/dL [facility] GFR Estimate 63 >60 [place] mL/min/1.[address] Comment: Non GFR Calc GFR Estimate If Black 77 >60 mL/min/1.7m2 F [facility] Comment: GFR Calc Calcium 9.4 8.5 - 10.1 mg/dL [facility] Specimen Anatomical Collection Method Collection Time Receive d Time (Source) Location / / Volume Laterality Blood specimen 11/13/2015 8:11 PM 016 8:46 (specimen) CDT PM CDT Kana Westbrook MD LAB - BLOOD ORDERABLES Performing Organization Address City/[facility]/ZIP Code Phon e Number [facility] [address] [place], [place] [address] [facility] [address] [place], [place] [address], [facility] [phone] CBC with platelets differential (11/13/2015 8:11 PM CDT) Patholo gist Method Time Signature WBC 10.2 4.0 - [place] 11.0 [facility] 10e9/L [facility] RBC Count 4.07 3.8 - 5.2 [place] 10e12/L [facility] Hemoglobin 12.4 11.7 - [place] 15.7 g/dL [facility] Hematocrit 37.3 35.0 - [place] 47.0 % [facility] MCV 92 78 - 100 [place] fl [facility] MCH 30.5 26.5 - [place] 33.0 pg [facility] MCHC 33.2 31.5 - [place] 36.5 g/dL [facility] RDW 14.0 10.0 - [place] 15.0 % [facility] Platelet Count 301 150 - 450 [place] 10e9/L [facility] Diff Method Automated [facility] % Neutrophils 51.4 % [facility] % Lymphocytes 34.7 % [facility] % Monocytes 10.7 % [facility] % Eosinophils 2.4 % [facility] % Basophils 0.6 % [facility] % Immature 0.2 % [place] Granulocytes [facility] Nucleated RBCs 0 0 /100 [facility] Absolute 5.3 1.6 - 8.3 [place] Neutrophil 10e9/L [facility] Comment: CORRECTED ON 11/12 AT 2159: PRE VIOUSLY REPORTED 5.2 Absolute Lymphocytes 3.5 0.8 - 5.3 10e9/L [facility] Absolute Monocytes 1.1 0.0 - 1.3 10e9/L [facility] Absolute Eosinophils 0.2 0.0 - 0.7 10e9/L [facility] Absolute Basophils 0.1 0.0 - 0.2 10e9/L [facility] Abs Immature Granulocytes 0.0 0 - 0.4 10e9/L [facility] Absolute Nucleated RBC 0.0 [facility] Reactive Lymphs Present [facility] Platelet Estimate Normal [facility] Specimen Anatomical Collection Method Collection Time Receive d Time (Source) Location / / Volume Laterality Blood specimen 11/13/2015 8:11 PM 016 8:46 (specimen) CDT PM CDT Kana Westbrook MD LAB - BLOOD ORDERABLES Performing Organization Address City/State/ZIP Code Phon e Number [facility] [address] [place], [place] [address] [facility] [address] [place], [place] [address] [facility] [phone] documented in this encounter Visit Diagnoses Diagnosis [...] pain documented in this encounter Care Teams Artist Suspect Relationship Specialty Start Date End Date Harriet Haley MD PCP - General Physician Government Documents Librarian 10/01/15 [facility] [address] [place] [address] documented as of this encounter
--- OUTSIDE RECORDS SUMMARY | 2022-06-23 00:53 | XMS_ITS | Encounter Summary ---
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 [...] on filedocumented in this encounter Care Teams Fine Grade Bulldozer Operator Relationship Specialty Start Date End Date Harriet Haley MD PCP - General Physician Milieu Counselor 10/01/15 [place] [address] [facility] [place] [address] documented as of this encounter
--- OUTSIDE RECORDS SUMMARY | 2022-06-23 00:53 | XMS_ITS | Encounter Summary ---
:1965 Author Organization [place] Address [address] [place] [address] Care Team Providers Name Role Phone Harriet Haley MD Primary Care Provider [phone] Reason for Visit Reason Comments RECHECK Encounter Details Date Type Department Care Team Description 07/08/2016 Office Visit [facility] [place], Jossy Villaseñor, ress fracture of Sports Medicine DO metatarsal bone of [facility] [place] [facility] [place] left foot with [address] [employer] [facility] routine healing [address] (Primary Dx) [place] [address] [address] [place], [place] [address] (Wo rk) Social History [...] Comments Blood Pressure 146/80 07/08/2016 11:03 AM SPECIMEN ACCESSIONER Pulse 101 07/08/2016 11:03 AM SPECIMEN ACCESSIONER Temperature - - Respiratory Rate - - Oxygen Saturation - - Inhaled Oxygen Concentration - - Weight 99.8 kg (220 lb) 07/08/2016 11:03 AM SPECIMEN ACCESSIONER Height 172.7 cm (5' 8) 07/08/2016 11:03 AM SPECIMEN ACCESSIONER Body Mass Index 33.45 07/08/2016 11:03 AM SPECIMEN ACCESSIONER documented in this encounter Patient Instructions Patient [...] (sooner if needed; call direct clinic number [[phone]] at any time with questions or concerns) Jossy Kilgore DO CAQSM [facility] IMEN ACCESSIONER documented in this encounter Progress Notes Jossy Kilgore DO - 07/08/2016 11:04 AM CST [facility] Visit Jul [...] care who took xrays (see below), prescribed [place] and gave her crutches. She used the [...] been compliant in the boot x4 weeks. waxer tender on palpation. Continue with boot as [...] in 4 weeks. Call direct clinic number [phone] at any time with questions or concerns.Instructed to call the office if the condition evolves or worsens. Patient's conditions were thoroughly discussed during today's visit with greater than 50% of the visit spent counseling the patient with total time spent [id number] with the patient being 25 minutes. Jossy Kilgore DO [facility] IMEN ACCESSIONER documented in this encounter Nursing Notes Carlos [...] completed using cuff size: mamadou Roth ATC IMEN ACCESSIONER documented in this encounter Plan of Treatment Not on filedocumented as of this encounter Visit Diagnoses Diagnosis Stress fracture of metatarsal bone of le ft foot with routine healing - Primary documented in this encounter Care Teams Software Firmware Engineer Relationship Specialty Start Date End Date Harriet Haley MD PCP - General Physician Forming Machine Adjuster 10/01/15 [facility] [address] [place] [address] documented as of this encounter
--- OUTSIDE RECORDS SUMMARY | 2022-06-23 00:53 | XMS_ITS | Encounter Summary ---
:1965 Author Organization [place] Address [address] [place] [address] Care Team Providers Name Role Phone Harriet Haley MD Primary Care Provider [phone] Reason for Visit Reason Comments Leg Pain bilateral leg pain and swell ing Encounter Details Date Type Department Care Team Description 06/26/2016 Emergency [facility] Rebecca Bean, Peripheral edema Emergency Dept [address] [facility] [place], [place] [address] [facility] [place] [address] [place] [address] [phone] (Wo rk) Social History Tobacco Use Types [...] Comments Blood Pressure 119/66 06/26/2016 11:46 PM CASHIER GAMBLING Pulse 103 06/26/2016 8:56 PM CASHIER GAMBLING Temperature 36.8 ??C (98.3 ??F) 06/26/2016 8:56 PM CASHIER GAMBLING Respiratory Rate 14 06/26/2016 11:55 PM CASHIER GAMBLING Oxygen Saturation 96% 06/26/2016 11:48 PM CASHIER GAMBLING Inhaled Oxygen Concentration - - Weight 109.4 kg (241 lb 2.9 oz) 06/26/2016 8:56 PM CASHIER GAMBLING Height 172.7 cm (5' 8) 06/26/2016 8:56 PM CASHIER GAMBLING Body Mass Index 36.67 06/26/2016 8:56 PM CASHIER GAMBLING documented in this encounter Discharge Instructions Discharge InstructionsVan Rebecca Casanova MD - 06/26/2016 11:39 PM CASHIER GAMBLING Images from the original note were not [...] insufficiency or varicose veins, don't sit or in processing instructor one place for long periods of time. [...] eyes ?? Rapid, unexplained weight gain ? [id number] [employer]. [address] [place] [address]. All rights reserved. This information is not intended as a substitute for professional medical care. Always follow your healthcare professional's instructions. IER GAMBLING documented in this encounter Medications at Time [...] prescribed intentionally due to {CHOOSE REASON BEFORE SIGNING!!!:[id number]} DULoxetine HCl Take 120 mg by mouth [...] understanding of d/c instructions and ambulated to [facility]. IER GAMBLING Tresa Cassidy RN - 06/26/2016 11:13 PM CST Pt refuses front desk monitor to be applied IER GAMBLING Tresa Cassidy RN - 06/26/2016 11:03 PM CST Pt refuses blood pressure cuff. Pt refused to remove bra for EKG IER GAMBLING Rebecca Thompson MD - 06/26/2016 9:23 PM [...] observations and the provider's statements to me. 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 US LOWER EXTREMITY STAT 06/26/2016 10:48 Resul ts for this VENOUS DUPLEX PM CASHIER GAMBLING procedure are in BILATERAL the results section. EKG 12-LEAD, TRACING STAT 06/26/2016 9:57 PM R esults for this ONLY CASHIER GAMBLING procedure are i n the results section. CBC WITH PLATELETS & STAT 06/26/2016 9:40 PM R esults for this DIFFERENTIAL CASHIER GAMBLING procedure are i n the results section. TROPONIN I STAT 06/26/2016 9:40 PM Results f or this CASHIER GAMBLING procedure are i n the results section. COMPREHENSIVE STAT 06/26/2016 9:40 PM Results for this METABOLIC PANEL CASHIER GAMBLING procedure ar e in the results section. documented in this encounter Results XR Chest 2 Views (06/26/2016 11:03 PM CASHIER GAMBLING) Anatomical Region Laterality Modality Chest Computed Radiography Specimen (Source) Anatomical Location Collection Method / Collectio n Time Received Time / Laterality Volume Impressions 06/26/2016 11:12 PM CASHIER GAMBLING IMPRESSION: Mild infiltrate or atelectasis in the left lower lobe. A mild pneumonia could have this appearanc e. Please clinically correlate. The lungs are otherwise clear . No pleural effusions. Heart size and pulmonary vascularity are withi n normal limits. Postoperative changes of fusion in the lower cervical spine. ITZ DUENAS MD Narrative 06/26/2016 11:12 PM CASHIER GAMBLING CHEST TWO VIEWS ??06/26/2016 11:03 PM HISTORY: [...] extremities, bilateral, venous US (06/26/2016 10:48 PM CASHIER GAMBLING) Anatomical Region Laterality Modality Vascular, Thigh, Leg Ultrasound Specimen (Source) Anatomical Location Collection Method / Collectio n Time Received Time / Laterality Volume Impressions 06/26/2016 10:57 PM CASHIER GAMBLING IMPRESSION: No evidence for deep venous thrombosis. MAXWELL PENA MD Narrative 06/26/2016 10:57 PM CASHIER GAMBLING VENOUS DOPPLER BILATERAL LOWER EXTREMITY 06/26/2016 10:48 [...] deep venous thrombosis. MAXWELL PENA MD Rebecca Tohmpson MD IMG US ORDERABLES EKG 12-lead, tracing only (06/26/2016 9:57 PM CASHIER GAMBLING) [facility] Method Time Signature Interpretation ECG Click View RADIOLOGY Image link RESULTS to view waveform and result Specimen (Source) Anatomical Collection Method Collection Time Re ceived Time Location / / Volume Laterality 06/26/2016 9:57 PM CASHIER GAMBLING Rebecca Thompson MD ECG ORDERABLES Performing Organization Address City/State/ZIP Code Phon e Number RADIOLOGY RESULTS (ABNORMAL) Comprehensive metabolic panel (06/26/2016 9:40 PM CASHIER GAMBLING) athologist Signature Sodium 138 133 - 144 [place] mmol/L [facility] Potassium 3.6 3.4 - 5.3 [place] mmol/L [facility] Chloride 104 94 - 109 [place] mmol/L [facility] Carbon Dioxide 27 20 - 32 [place] mmol/L [facility] Anion Gap 7 3 - 14 [place] mmol/L [facility] Glucose 140 (H) 70 - 99 [place] mg/dL [facility] Urea Nitrogen 6 (L) 7 - 30 [place] mg/dL [facility] Creatinine 0.86 0.52 - [place] 1.04 mg/dL [facility] GFR Estimate 70 >60 [place] mL/min/1.7 [place] [address] HOSPITAL Comment: Non GFR Calc GFR Estimate If Black 85 >60 mL/min/1.7m2 F [facility] Comment: GFR Calc Calcium 8.5 8.5 - 10.1 mg/dL [facility] Bilirubin Total 0.3 0.2 - 1.3 mg/dL [facility] Albumin 3.6 3.4 - 5.0 g/dL [facility] Protein Total 7.2 6.8 - 8.8 g/dL [facility] Alkaline Phosphatase 134 40 - 150 U/L [facility] ALT 43 0 - 50 U/L [facility] AST 35 0 - 45 U/L [facility] Specimen Anatomical Collection Method Collection Time Receive d Time (Source) Location / / Volume Laterality Blood specimen 06/26/2016 9:40 PM 016 9:46 (specimen) CASHIER GAMBLING PM CASHIER GAMBLING Rebecca Thompson MD LAB - BLOOD ORDERABLES Performing Organization Address City/State/ZIP Code Phon e Number [facility] [address] [place] [address] [facility] [address] [place], [place] [address] [facility] [phone] Troponin I (06/26/2016 9:40 PM CASHIER GAMBLING) [facility] Method Time Signature Troponin I ES <0.015 0.000 - [place] The 99th percentile for uppe r reference range is 0.045 ug/L. ??Troponin values in 0.045 [facility] the range of 0.045 - 0.120 ug/L may be associated wit h risks of adverse ug/L HOSPITAL clinical events. Specimen Anatomical Collection Method Collection Time Receive d Time (Source) Location / / Volume Laterality Blood specimen 06/26/2016 9:40 PM 016 9:46 (specimen) CASHIER GAMBLING PM CASHIER GAMBLING Rebecca Thompson MD LAB - BLOOD ORDERABLES Performing Organization Address City/State/ZIP Code Phon e Number [place] [address] [address] [place], [place] [address] [place] [address] [phone] (ABNORMAL) CBC with platelets differential (06/26/2016 9:40 PM CASHIER GAMBLING) Component Value Ref Test Analysis Performed At [facility] Method Time Signature WBC 11.1 (H) 4.0 - [place] 11.0 [facility] 10e9/L [facility] RBC Count 3.88 3.8 - [place] 5.2 [facility] 10e12/L [facility] Hemoglobin 12.0 11.7 - [place] 15.7 [facility] g/dL [facility] Hematocrit 36.3 35.0 - [place] 47.0 % [facility] MCV 94 78 - 100 [facility] MCH 30.9 26.5 - [place] 33.0 pg [facility] MCHC 33.1 31.5 - [place] 36.5 [facility] g/dL [facility] RDW 12.7 10.0 - [place] 15.0 % [facility] Platelet Count 269 150 - [place] 450 [facility] 10e9/L [facility] Diff Method Manual [place] Differential [facility] % Neutrophils 51.0 % [facility] % Lymphocytes 42.0 % [facility] % Monocytes 5.0 % [facility] % Eosinophils 1.0 % [facility] % Basophils 1.0 % [facility] Absolute 5.7 1.6 - [place] Neutrophil 8.3 [facility] 10e9/L [facility] Absolute 4.7 0.8 - [place] Lymphocytes 5.3 [facility] 10e9/L [facility] Absolute 0.6 0.0 - [place] Monocytes 1.3 [facility] 10e9/L [facility] Absolute 0.1 0.0 - [place] Eosinophils 0.7 [facility] 10e9/L [facility] Absolute 0.1 0.0 - [place] Basophils 0.2 [facility] 10e9/L [facility] RBC Morphology Consistent with [place] reported results [facility] Platelet Normal [place] Estimate [facility] Specimen Anatomical Collection Method Collection Time Receive d Time (Source) Location / / Volume Laterality Blood specimen 06/26/2016 9:40 PM 016 9:46 (specimen) CASHIER GAMBLING PM CASHIER GAMBLING Rebecca Thompson MD LAB - BLOOD ORDERABLES Performing Organization Address City/State/ZIP Code Phon e Number [place] [address] [address] [place], [place] [address] [phone] [facility] [address] [phone] documented in this encounter Visit Diagnoses Diagnosis Peripheral edema Edema documented in this encounter Active and Recently Administered Medications Care Teams Film Examiner Relationship Specialty Start Date End Date Harriet Haley MD PCP - General Physician Aircraft Magneto Mechanic 10/01/[address] [address] documented as of this encounter
--- OUTSIDE RECORDS SUMMARY | 2022-06-23 00:53 | XMS_ITS | Encounter Summary ---
:1965 Author Organization [facility] Address [address] [place] [address] Care Team Providers Name Role Phone Harriet Haley MD Primary Care Provider [phone] Reason for Visit Reason Comments Musculoskeletal Problem Encounter Details Date Type Department Care Team Description 05/09/2016 Office Visit [facility] [place], [place] foot pain Sports Medicine DO (Primary Dx) Clinic [facility] [id number] [place] [address] SPORTS MED [address] [address] [place] [address] [facility] [address] [place], [place] [address] (Wo rk) Social History [...] left foot has been ordered. Schedule with [facility] ([phone]). Once you know the date of your MRI, please call my office and schedule a follow- up visit for 2 days after that. Follow up 2 days after your MRI in the office to discuss the results. Call direct clinic number [[phone]] at any time with questions or concerns. Jossy Kilgore DO CAQSM [facility] documented in this encounter Progress Notes Jossy Kilgore DO - 05/09/2016 11:22 AM CDT [facility] Clinic Visit May [...] an acute precipitating event. She was seen [facility] Urgent care on 04/30/2016. Xrays [...] about it and was referred back to [facility]. However,she stopped in at the [facility] instead on 05/08 and new films were taken and she was referred here. Initial treatment has consisted of ice, Tylenol, ibuprofen, other medications: Hy drocodone/Acetaminophen (Vicodin/[place]) and previous imaging (xray see below) with [...] in the office. Call direct clinic number [phone] at any time with questions or concerns. Instructed to call the office if the condition evolves or worsens. Patient's conditions were thoroughly discussed during today's visit with greater than 50% of the visit spent counseling the patient with total time spent fgjh-hb-hluf with the patient being 25 minutes. Jossy Kilgore DO [facility] documented in this [...] above. YEMI COATES MD Jossy Kilgore DO [facility] MRI ORDERABLES documented in this encounter Visit Diagnoses Diagnosis Left foot pain - Primary Pain in limb Left foot pain Pain in limb documented in this encounter Care Teams Gluing Machine Adjuster Relationship Specialty Start Date End Date Harriet Haley MD PCP - General Physician Silk Soaker 10/01/15 [facility] [address] [place] [address] documented as of this encounter
--- OUTSIDE RECORDS SUMMARY | 2022-06-23 00:53 | XMS_ITS | Encounter Summary ---
:1965 Author Organization [facility] Address [address] [place] [address] Care Team Providers Name Role Phone Harriet Haley MD Primary Care Provider [phone] Encounter Details Date Type Department Care Team Description 02/20/2016 Surgery - [facility] Marco Antonio Cid MD [facility] UROLOGIC [place] OR SPECIALISTS [facility] [place] [address] [place] [address] (Wo rk) Social History Tobacco [...] on filedocumented in this encounter Care Teams Elementary Art Teacher Relationship Specialty Start Date End Date Harriet Haley MD PCP - General Physician Medical Technologist Hematology 10/01/15 [facility] [address] [facility] [place] [address] documented as of this encounter
--- OUTSIDE RECORDS SUMMARY | 2022-06-23 00:53 | XMS_ITS | Encounter Summary ---
:1965 Author Organization [facility] Address [address] [facility] [place] [address] Care Team Providers Name Role Phone Harriet Haley MD Primary Care Provider [phone] Reason for Visit [facility] (Routine) - Closed Specialty Diagnoses / Procedures Referred By Contact Refer red To Contact Mumtaz Rushing MD [facility] Sports & [facility] Physical [facility] - [address] [place], [place] [address] [place] [address] Phone: Fax: Referral ID Status Reason Start Date Expiration Date Visits Requ ested Visits Authorized [facility]/HP/LBP Closed 03/26/2016 08/09/2016 18 16 Encounter Details Date Type Department Care Team Description 04/10/2016 Therapy Visit [facility] Lizzie Patino Chro kathryn bilateral Rehabilitation Services PT low back pain with [place] [address] [facility] left-sided sciatica [address] [facility]. (Primary Dx) [place] [address] [id number] Social History Tobacco Use Types Packs/Day Years [...] Name Priority Date/Time Associated Diagnosis Comme nts [facility] NEUROMUSCULAR Routine 04/10/2016 3:32 PM Chronic bilateral low RE-EDUCATION CDT back pain with left-sided sciatica [facility] THERAPEUTIC EXERCISES Routine 04/10/2016 3:32 PM Chronic b ilateral low CDT back pain with left-sided sciatica documented in this encounter Visit Diagnoses Diagnosis Chronic bilateral low back pain with lef t-sided sciatica - Primary documented in this encounter Care Teams Beer Merchant Relationship Specialty Start Date End Date Harriet Haley MD PCP - General Physician Positive Printer Operator 10/01/15 [facility] [address] [place] [address] documented as of this encounter
[2022-06-23 00:54] LABS: Basophils Absolute Auto 0.02 K/uL (0.00-0.30); Basophils Percent Auto 0.2 % (0.0-3.0); Eosinophils Absolute Auto 0.34 K/uL (0.00-0.50); Eosinophils Percent Auto 3.4 % (0.0-7.0); Hematocrit 39.2 % (33.0-51.0); Hemoglobin* 13.4 gm/dL (12.0-16.0); Immature Granulocytes Abs Auto 0.05 K/uL (0.00-0.30); Immature Granulocytes Pct Auto 0.5 %; Lymphocytes Absolute Auto 3.45 K/uL (0.90-2.90); Lymphocytes Percent Auto 34.8 % (20-44); Mean Corpuscular HGB Conc 34 gm/dL (32-36); Mean Corpuscular Hemoglobin 31 pg (26-34); Mean Corpuscular Volume 92 fL (80-100); Monocytes Percent Auto 7.4 % (0.0-11.0); Neutrophils Absolute Auto 5.32 K/uL (1.7-7.0); Neutrophils Percent Auto 53.7 % (42.0-72.0); Platelet Count* 301 K/uL (140-440); RDW Coefficient of Variation % 12.9 % (11.5-15.5); Red Blood Count 4.28 m/uL (4.00-5.20); White Blood Count* 9.91 K/uL (4.50-11.00)
--- OUTSIDE RECORDS SUMMARY | 2022-06-23 00:54 | XMS_ITS | Encounter Summary ---
:1965 Author Organization [facility] Address [address] [place] [address] Care Team Providers Name Role Phone Amor Montgomery MD Primary Care Provider Encounter Details Date Type Department Care Team Description 03/08/2004 Orders Only [facility] Amor Montgomery [facility] HYROIDISM NOS Clinic Luly Hugo MD (Primary Dx) [address] [place], [place] [address] [address] [place] [address] [phone] Social History Tobacco Use Types Packs/Day Years [...] Primary documented in this encounter Care Teams Hydraulic Jack Adjuster Relationship Specialty Start Date End Date mAor Montgomery MD PCP - General 09/24/01 05/05/13 [facility] [address] [place] [address] documented as of this encounter
--- OUTSIDE RECORDS SUMMARY | 2022-06-23 00:54 | XMS_ITS | Encounter Summary ---
:1965 Author Organization [facility] Address [address] [place] [address] Care Team Providers Name Role Phone Amor Montgomery MD Primary Care Provider Reason for Visit Reason Onset Date Comments Refill Request 05/20/2005 synthroid Encounter Details Date Type Department Care Team Description 05/20/2005 Refill [facility] Mikel Montgomery Refill Request Luly Hugo MD (synthroid) [address] [place], [place] SYSTEM [address] [address] [phone] [place] [address] (Wo rk) Social History Tobacco Use Types [...] on filedocumented in this encounter Care Teams Membership Coordinator Relationship Specialty Start Date End Date Amor Montgomery MD PCP - General 09/24/01 05/05/13 [place] [address] [place] [address] documented as of this encounter
--- OUTSIDE RECORDS SUMMARY | 2022-06-23 00:54 | XMS_ITS | Encounter Summary ---
:1965 Author Organization [place] [facility] Address [address] [place] [address] Care Team Providers Name Role Phone Amor Montgomery MD Primary Care Provider Reason for Visit Reason Comments migraine headache Encounter Details Date Type Department Care Team Description 07/13/2003 Abstract [facility] Nick Trejo, DO [place] [address] [address] [place] [phone] Social History Tobacco Use Types Packs/Day Years Used Date Smoking Tobacco: Every Day Comments: LESS THAN 1 PPD Alcohol Use Standard Drinks/Week Comments Yes 0 (1 standard drink = 0.6 oz pure alcoho l) SMALL Sex Assigned at Date Recorded Not on file documented as of this encounter Progress Notes 07/13/2003 11:59 PM POWER TOOL REPAIRER This information has been abstracted from the [facility] urgent care chart. demerol 50 mg IM phenog an 25 mg IM Electronically filed by Lizzie De La Paz 08/28/2003 2:47 PM documented in this encounter Plan of Treatment Not on filedocumented as of this encounter Visit Diagnoses Not on filedocumented in this encounter Care Teams Order Picker Relationship Specialty Start Date End Date Amor Montgomery MD PCP - General 09/24/01 05/05/13 [facility] [address] [place] [address] documented as of this encounter
--- OUTSIDE RECORDS SUMMARY | 2022-06-23 00:54 | XMS_ITS | Encounter Summary ---
:1965 Author Organization [facility] Address [address] [place] [address] Care Team Providers Name Role Phone Amor Montgomery MD Primary Care Provider Nissa Cassidy DO Primary Care Provider [phone] Harriet Haley MD Primary Care Provider Encounter Details Date Type Department Care Team Description 06/12/2010 Records - [facility] Sharri Vivar OR MD [place] [address] [place] [address] [facility] [address] [place] [address] (Wo rk) Social History Tobacco Use [...] 0 6:23 CDT PM CDT Narrative [facility] - 06/14/2010 2:06 PM CDT Case#: [id number] CYTOPATHOLOGY REPORT [facility] Status: Final Report MICRO/DIAGNOSIS: PERITONEAL/PELVIC WASHINGS: ? - NEGATIVE FOR MALIGNANT CELLS. COMMENT: The cytologic findings correlate with co rresponding ovarian pathology [id number]. Pathologist: Belle Leong ??Mickey Guallpa Electronically Signed [facility] CLINICAL INFORMATION: Clinical History: LOWER LEFT OVARIAN CARLIN N Reason for Procedure: LOWER LEFT QUADRAN T PAIN SPECIMEN DESCRIPTION: A) SOURCE: PERITONEAL WASH The Specimen consists of 100 mL of clear colorless fluid, from which: 1 Direct smear 1 SurePath slide is prepared. The following procedure codes have been billed on this case:1 X WASH/BRUSH CYTO ([id number]); ICD9: 620.1 glw This test was performed at: ?[facility] ?[address] ?[place], [place] ??[address] ?Phone n umber: [phone] CC: JERI VIVAR MD [phone] KJ CORTEZ MD [phone] CCEND: All histology slide preparation, stains and image analysis done at [facility] are performed at [facility], [address] [place] [address], [address], with f inal interpretation and frozen section analysis at the indicated laboratory. Date Collected: 06/12/10 ?Date Received : 06/13/10 Date Completed: 06/14/10 14:05 ?? Reques t: [phone] Jeri DEUTSCH - MARK JACKSON Performing Organization Address City/State/ZIP Code Phon e Number [facility] [place] [address] [facility] [address] [place] [address] LABORATORY Surgical Pathology Exam (06/12/2010 5:30 PM CDT) Specimen Anatomical Collection Method Collection Time Receive d Time (Source) Location / / Volume Laterality 06/12/2010 5:30 PM 0 5:46 CDT PM CDT Narrative [facility] - 06/14/2010 11:38 AM CDT Case#: [id number] SURGICAL PATHOLOGY REPORT [facility] Status: Final Report MICRO/DIAGNOSIS: LEFT OVARY AND FALLOPIAN TUBE, LEFT SALP INGO-OOPHORECTOMY: ? 1) BENIGN CORPUS LUTEAL AND FOLLI CULAR CYSTS ? 2) FALLOPIAN TUBE WITH SCATTERED BENIGN ENDOSALPINGIOTIC ?CYSTS ? 3) NO EVIDENCE OF MALIGNANCY. Pathologist: Belle Leong ??Mickey Guallpa ??(Electronically Signed) [facility] CLINICAL INFORMATION: Lower left abdominal pain [...] billed on this case:1 X LEVEL 4-G&M ([id number]); ICD9: 620.1 This test was performed at: ?[facility] ?[address] ?[facility] [place] ??[address] ?Phone n umber: [phone] CC: JERI VIVAR MD [phone] KJ CORTEZ MD [phone] CCEND: All histology slide preparation, stains and image analysis done at [facility] are performed at [facility], [address] [place] [address], [address], with f inal interpretation and frozen section analysis at the indicated laboratory. Date Collected: 06/12/10 ? Alejandro e Received: ??06/13/10 Date Completed: 06/14/10 11:38 ?? Reques t: [phone] Jeri Vivar MD [facility] Performing Organization Address City/State/ZIP Code Phon e Number [facility] [place] [address] [facility] [address] [place] [address] LABORATORY documented in this encounter Visit Diagnoses Not on filedocumented in this encounter Care Teams Eap Consultant Relationship Specialty Start Date End Date Amor Montgomery MD PCP - General 09/24/01 05/05/13 [facility] [address] [place] [address] Nissa Cassidy DO PCP - General Internal Medicine 05/06/13 09/30/[address] [place] [address] Harriet Haley MD PCP - General Physician Grill Chef 10/01/15 [facility] [address] [place] [address] documented as of this encounter
--- OUTSIDE RECORDS SUMMARY | 2022-06-23 00:54 | XMS_ITS | Encounter Summary ---
:1965 Author Organization [facility] Address [address] [place] [address]. [place] [address] Care Team Providers Name Role Phone Nissa Cassidy Primary Care Provider [phone] Reason for Visit Reason Comments Dental Pain Encounter Details Date Type Department Care Team Description 05/06/2013 Emergency [facility] Chad Hardy P ain in [facility] Emergency Dep t (Primary Dx) [address] [facility] [place], [place] [address] [address] [facility] [phone] [place] [address] (Wo rk) Social History Tobacco Use [...] provider's statements to me. Amol Calle 05/06/2013 [facility] Chad Hardy MD 05/06/13 1761 documented in this encounter Plan of Treatment Not on filedocumented as of this encounter Visit Diagnoses Diagnosis Pain in upper jaw - Primary Jaw pain documented in this encounter Active and Recently Administered Medications Care Teams Law Office Assistant Relationship Specialty Start Date End Date Nissa Cassidy DO PCP - General Internal Medicine 05/06/13 09/30/[address] [address] documented as of this encounter
--- OUTSIDE RECORDS SUMMARY | 2022-06-23 00:54 | XMS_ITS | Encounter Summary ---
:1965 Author Organization [facility] Address [address] [place] [address] Care Team Providers Name Role Phone Amor Montgomery MD Primary Care Provider Encounter Details Date Type Department Care Team Description 08/05/2004 Orders Only [facility] Amor Montgomery [facility] HYROIDISM NOS Clinic Luly Hugo MD (Primary Dx) [address] [place], [place] [address] [address] [place] [address] [phone] Social History Tobacco Use Types Packs/Day Years [...] Primary documented in this encounter Care Teams Displayer Relationship Specialty Start Date End Date Amor Montgomery MD PCP - General 09/24/01 05/05/13 [facility] [address] [place] [address] documented as of this encounter
--- OUTSIDE RECORDS SUMMARY | 2022-06-23 00:54 | XMS_ITS | Encounter Summary ---
:1965 Author Organization [facility] Address [address] [place] [address] Care Team Providers Name Role Phone Amor Montgomery MD Primary Care Provider Reason for Referral Office Workup No CT/MRI (Routine) - Closed Specialty Diagnoses / Procedures Referred By Contact Refer red To Contact Diagnoses Closed fracture of unspecified phalanx or phalanges of hand Amor Montgomery MD [facility] [address] [place] [address] [place] [address] Phone: [phone] Referral ID Status Reason Start Date Expiration Date Visits Requ ested Visits Authorized [id number] Closed 07/26/2004 02/06/2005 1 4 OR ENVIRONMENTAL TECHNICIAN Encounter Details Date Type Department Care Team Description 07/26/2004 Orders Only [facility] Amor Montgomery FX PH ALAN[facility], HAND Clinic Luly Hugo MD NOS-CLOSE (Primary Dx) [address] [place], [place] SYSTEM [address] [address] [phone] [place] [address] Social History Tobacco Use Types Packs/Day Years [...] Primary documented in this encounter Care Teams Grad Intern Relationship Specialty Start Date End Date Amor Montgomery MD PCP - General 09/24/01 05/05/13 [place] [address] [place] [address] documented as of this encounter
--- OUTSIDE RECORDS SUMMARY | 2022-06-23 00:54 | XMS_ITS | Encounter Summary ---
:1965 Author Organization [facility] Address [address] [place] [address] Care Team Providers Name Role Phone Harriet Haley MD Primary Care Provider [phone] Reason for Referral Consultation - Closed Specialty Diagnoses / Procedures Referred By Contact Refer red To Contact Neurosurgery Diagnoses Left lumbar radiculopathy Lumbar disc herniation Central spinal stenosis Lumbar degenerative disc disease Andrea Carvalho DO [facility] [id number] (OP) [place] [address] [place] [address] Phone: Fax: Referral ID Status Reason Start Date Expiration Date Visits Requ ested Visits Authorized [id number] Closed 10/10/2015 10/09/2016 1 1 ORGAN TECHNICIAN Reason for Visit Reason Comments Musculoskeletal Problem BACK PAIN Encounter Details Date Type Department Care Team Description 10/10/2015 Office Visit [facility] Andrea Bonner Left lumba r radiculopathy (Primary Dx); Sports Medicine DO As[place] Lumbar disc herniation; Clinic [place] [address] Central spinal stenosis; [address] [place], [place] Lumbar degenerative disc dis ease [address] [address] [place] [address] Social History Tobacco Use Types [...] Comments Blood Pressure 126/80 10/10/2015 1:57 PM PIPE ORGAN TECHNICIAN Pulse - - Temperature - - Respiratory Rate - - Oxygen Saturation - - Inhaled Oxygen Concentration - - Weight 106.6 kg (235 lb) 10/10/2015 1:57 PM PIPE ORGAN TECHNICIAN Height 170.2 cm (5' 7) 10/10/2015 1:57 PM PIPE ORGAN TECHNICIAN Body Mass Index 36.81 10/10/2015 1:57 PM PIPE ORGAN TECHNICIAN documented in this encounter Patient Instructions [...] (sooner if needed; call direct clinic number [[phone]] at any time with questions or concerns) ORGAN TECHNICIAN documented in this encounter Progress Notes Andrea Carvalho DO - 10/10/2015 1:56 PM CST [facility] Visit s [...] counseling the patient with total time spent xtua-ez-hbvs with the patient being 20 minutes. Andrea Carvalho DO, [facility] Disclaimer: This [...] his behalf by Jason Gil, a trained mobile paramedical examiner. The creationof this record is based on the provider's personal observations and the statements of the patient. This document has been checked and approved by the attending provider. Jason Gil 2:22 PM October 10, 2015 ORGAN TECHNICIAN documented in this encounter Nursing Notes Waldo [...] completed using cuff size: chrissy Sinclair ATC/R ORGAN TECHNICIAN documented in this encounter Plan of Treatment Pending Results Name Type Priority Associated Diagnoses Date/Ti vt ORTHO GRAIN SPOUTER REFERRAL Referral Routine Left jorge mbar radiculopathy [...] disc documented in this encounter Care Teams Card Room Manager Relationship Specialty Start Date End Date Harriet Haley MD PCP - General Physician Tankerman 10/01/15 [facility] [address] [place] [address] documented as of this encounter
--- OUTSIDE RECORDS SUMMARY | 2022-06-23 00:54 | XMS_ITS | Encounter Summary ---
:1965 Author Organization [facility] Address [address] [place] [address] Care Team Providers Name Role Phone Nissa Cassidy DO Primary Care Provider Harriet Haley MD Primary Care Provider [phone] Encounter Details Date Type Department Care Team Description 02/07/2015 [facility] [address] [place] [address] [place], [place] [phone] [address] Social History Tobacco Use Types Packs/Day [...] on filedocumented in this encounter Care Teams Service Consultant Relationship Specialty Start Date End Date Nissa Cassidy DO PCP - General Internal Medicine 05/06/13 09/30/[address] [place] [address] Harriet Haley MD PCP - General Physician Candy Spreader 10/01/15 [facility] [address] [place] [address] documented as of this encounter
--- OUTSIDE RECORDS SUMMARY | 2022-06-23 00:54 | XMS_ITS | Encounter Summary ---
:1965 Author Organization [place] Address formerly [facility] [place] [address] Care Team Providers Name Role Phone Ryan Cassidychelsierobin Sarina DO Primary Care Provider Encounter Details Date Type Department Care Team Description 02/08/2015 Hospital Encounter [facility] Lizzie Duron varian cyst, right [facility] OR MD Jamin [address] [place] [address] [employer] [place], [place] [address] [facility] [address] [address] [place] [address] Social History Tobacco Use Types [...] from w ithin the bag using a [place]. With removal of the last bit of [...] send a copy to Dr. Tere Wilson [facility] Signed Lizzie Duron documented in this encounter [...] [facility] the results section. IMAGING OTHER - [facility] 02/08/2015 SCAN EKG CARDIAC - HIM 02/08/2015 SCAN EKG CARDIAC - [facility] 02/08/2015 SCAN documented in this encounter [...] Surgical Pathology Exam (02/08/2015 8:11 AM CDT) [facility] Method Time Signature Case Report Surgical Pathology ?Case: [id number] ? 02/12/2015 [facility] 11:39 AM [facility] Authorizing Provider: ??Anamika Duron MD ? Ordering Provider: ?? Lizzie Duron MD ? T [facility] Ordering Location: ? [facility] OR ? Collected: ? 02/08/2015 0811 [...] history: ?Right ovarian cyst [620.2] Pelvic pain [[id number]] 02/12/2015 HEALTH Information Reason for procedure: ?Not provided 11:39 AM [facility] Time placed in formalin: 8:13 a.m. [facility] Gross A) Submitted in formalin in a container labeled with the patient's name and designated biopsy anterior cul de sac is a fragment of dennis good tissue measuring 0.5 x 0.5 x 0.2 cm in greatest dimensions. ??B&TE-1C ?? 02/12/2015 [facility] Description 11:39 AM [facility] B) Submitted in formalin in a container [...] no distinct lesions. ??RS-3C ??BHS:sg Charges CPT: ?61104 X 2 02/12/2015 [facility] ICD9: ?? 620.1 11:39 AM [facility] Result Flag Abnormal (A) Normal 02/12/2015 [facility] 11:39 AM [facility] Comment: All histology slide preparation, stains and image analysis [facility] ? [facility] are performed at [facility] ? [address] [place] [address], [place], [address], with f rosendopastor interpretation and ? frozen section analysis at the indicated laboratory. Specimen Anatomical Collection Method Collection Time Receive d Time (Source) Location / / Volume Laterality Tissue specimen TOPOGRAPHY UNKNOWN 02/08/2015 8:11 AM 02/08/2015 (specimen) / Unknown CDT 11:50 AM CDT Lizzie Duron MD [facility] Performing Organization Address City/State/ZIP Code Phon e Number [facility] [place] [address] [address] [facility] [address] [place] [address] LABORATORY Cytology, non-gynecologic (02/08/2015 8:06 AM CDT) [facility] Method Time Signature Case Report Medical Cytology ?Case: [id number] ? 02/12/2015 [facility] 5:39 PM [facility] Authorizing Provider: ??Anamika Duron MD ? Ordering Provider: ?? Lizzie Duron MD ? CDT [facility] Ordering Location: ? [facility] OR ? Collected: ? 02/08/2015 0806 ? LABOR ATORY Pathologist: ? Adriana Fang MD ?Received: ?02/08/2015 0832 ? Specimen: ?Pelvis Washin g, Pelvic Washing with Lactated Ringer ? General Path Negative for malignant cells Negative 02/13/[address] [place] [address] Interpretation at ??5:39 PM for 5:39 PM [facility] malignant CDT TASHIS cells, LABORATORY Non-Diagnos tic Lab AP PELVIC WASHINGS, SUBMITTED FOR CYTOLOGIC EXAM: 02/12/2015 [facility] Micro/Diagnosis ??1) NO MALIGNANT CELLS IDENTIFIED 5:39 PM [facility] ??2) MESOTHELIAL CELLS PRESENT CDT ISSACS Electronically signed by Adriana Fang MD on 5 at ??5:39 PM LABORATORY Comment Please see the 02/12/2015 [facility] concurrent 5:39 PM [facility] surgical CDT [facility] pathology report LABORATORY ([id number]). Specimen 300 ml cloudy pale red fluid 02/12/2015 [facility] Description 5:39 PM [facility] 1 Air dried slide CDT ISSACS 1 [facility] slid LABORATORY Are prepared. CPT: ? 47457 ICD9: ?620.1 Comment: All histology slide preparation, stains and image analysis done ? at [facility] are performed at [facility], [address] [place], [address], with f inal interpretation and ? frozen section analysis at the indicated laboratory. Specimen Anatomical Collection Method Collection Time Receive d Time (Source) Location / / Volume Laterality Specimen of 02/08/2015 8:06 AM 5 8:32 unknown material CDT AM CDT (specimen) (Pelvis Washing) Lizzie Duron MD [facility] Performing Organization Address City/State/ZIP Code Phon e Number [facility] [place] [address] [facility] [address] [place] [id number] [place] [address] ECG 12-LEAD WITH MUSE (LHE) (02/08/2015 5:48 AM CDT) Component Value Ref Range Test Analysis Performed Pathologis t Method Time At Signature Systolic Blood mmHg 02/08/2015 Pressure 4:26 PM CDT Diastolic Blood mmHg 02/08/2015 Pressure 4:26 PM CDT Ventricular Rate 87 BPM 02/08/2015 4:26 PM CDT Atrial Rate 87 BPM 02/08/2015 4:26 PM CDT [place] Interval 158 ms 02/08/2015 4:26 PM CDT QRS Duration 80 ms 02/08/2015 4:26 PM CDT QT 372 ms 02/08/2015 4:26 PM CDT QTc 447 ms 02/08/2015 4:26 PM CDT P [place] 57 degrees 02/08/2015 4:26 PM CDT R AXIS 11 degrees 02/08/2015 4:26 PM CDT T [place] 40 degrees 02/08/2015 4:26 PM CDT Interpretation Normal sinus rhythm 02/08/2015 ECG Low voltage QRS 4:26 PM Cannot rule out Anterior infarct , age undetermined CDT Abnormal ECG No previous ECGs available Confirmed by BRENNA ??SHAWN MONTILLA LOC:ISSAC ([id number]) on 02/08/2015 4:26 :06 PM Specimen (Source) [...] cyst documented in this encounter Care Teams Fitness And Wellness Manager Relationship Specialty Start Date End Date Nissa Cassidy DO PCP - General Internal Medicine 05/06/13 09/30/[address] [address] documented as of this encounter
--- OUTSIDE RECORDS SUMMARY | 2022-06-23 00:54 | XMS_ITS | Encounter Summary ---
:1965 Author Organization [place] Address [address] [place] [address] Care Team Providers Name Role Phone Amor Montgomery MD Primary Care Provider Reason for Visit Reason Comments Headache Encounter Details Date Type Department Care Team Description 08/24/2003 Office Visit [facility] JARON MontgomeryYROI DISM NOS (Primary Dx); [facility] [place] Amor Hugo MD MIGRAINE NOS W/O MENTN INTRACTABLE; [address] [facility] SINUSITIS [place], [place] [address] [place] [address] [address] [place] [address] [phone] Social History Tobacco Use Types Packs/Day Years [...] Comments Blood Pressure 102/60 08/24/2003 3:00 PM TOURING PRODUCTION MANAGER Pulse 68 08/24/2003 3:00 PM TOURING PRODUCTION MANAGER Temperature 37.3 ??C (99.1 ??F) 08/24/2003 3:00 PM TOURING PRODUCTION MANAGER Respiratory Rate 16 08/24/2003 3:00 PM TOURING PRODUCTION MANAGER Oxygen Saturation - - Inhaled Oxygen Concentration - - Weight 82.6 kg (182 lb) 08/24/2003 3:00 PM TOURING PRODUCTION MANAGER Height - - Body Mass Index 27.67 10/20/2002 1:00 PM TOURING PRODUCTION MANAGER documented in this encounter Progress Notes 08/24/2003 3:00 PM TOURING PRODUCTION MANAGER SUBJECTIVE CC: Lizzie He is a 37 [...] PM Hypothyroidism Nos Res ults for this TOURING PRODUCTION MANAGER procedure are i n the results section . documented in this encounter Results TSH- (08/24/2003 4:10 PM TOURING PRODUCTION MANAGER) athologist Signature TSH 1.41 0.4 - 5.0 [place] [facility] [place] Specimen Anatomical Collection Method Collection Time Receive d Time (Source) Location / / Volume Laterality 08/24/2003 4:10 PM 4 4:15 TOURING PRODUCTION MANAGER PM TOURING PRODUCTION MANAGER Amor Montgomery MD LABORATORY Performing Organization Address City/State/ZIP Code Phon e Number [facility] [address] [place] [address] [place] [address] [facility] documented in this encounter Visit Diagnoses Diagnosis Unspecified hypothyroidism - Primary Migraine, unspecified, without mention o f intractable migraine without mention of status migrainosus Acute maxillary sinusitis documented in this encounter Care Teams Creative Strategist Relationship Specialty Start Date End Date Amor Montgomery MD PCP - General 09/24/01 05/05/13 [place] [id number] [place] [address] documented as of this encounter
--- OUTSIDE RECORDS SUMMARY | 2022-06-23 00:54 | XMS_ITS | Encounter Summary ---
:1965 Author Organization [place] Address [address] [place] [address] Care Team Providers Name Role Phone Amor Montgomery MD Primary Care Provider Reason for Visit Reason Onset Date Comments Refill Request 08/05/2004 Encounter Details Date Type Department Care Team Description 08/05/2004 Refill [facility] Amor Tubbs MD Refill Request [facility] [address] [place] [address] [place], [place] [address] [phone] (Wo rk) Social History Tobacco Use Types Packs/Day Years Used Date Smoking Tobacco: Every Day Comments: LESS THAN 1 PPD Alcohol Use Standard Drinks/Week Comments Yes 0 (1 standard drink = 0.6 oz pure alcoho l) SMALL Sex Assigned at Date Recorded Not on file documented as of this encounter Miscellaneous Notes Telephone Encounter - 08/05/2004 2:25 PM 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 documented in this encounter Plan of Treatment Not on filedocumented as of this encounter Visit Diagnoses Not on filedocumented in this encounter Care Teams Silica Mixer Operator Relationship Specialty Start Date End Date Amor Montgomery MD PCP - General 09/24/01 05/05/13 [facility] [address] [place] [address] documented as of this encounter
--- OUTSIDE RECORDS SUMMARY | 2022-06-23 00:54 | XMS_ITS | Encounter Summary ---
:1965 Author Organization [place] Address [address] [place] [address] Care Team Providers Name Role Phone Amor Montgomery MD Primary Care Provider Encounter Details Date Type Department Care Team Description 01/27/2003 Orders Only [facility] [place] Amor Montgomery--LEFT HAND Clinic Luly Hugo MD & LEFT ELBOW X-RAY [address] [facility] ( Primary Dx) [place], [place] [address] [place] [address] [place] [address] [place] [address] [phone] Social History Tobacco Use Types Packs/Day Years [...] Primary documented in this encounter Care Teams Dry Pan Feeder Relationship Specialty Start Date End Date Amor Montgomery MD PCP - General 09/24/01 05/05/13 [place] [address] [place] [address] documented as of this encounter
--- OUTSIDE RECORDS SUMMARY | 2022-06-23 00:54 | XMS_ITS | Encounter Summary ---
:1965 Author Organization [place] Address [address] [place] [address] Care Team Providers Name Role Phone Amor Montgomery MD Primary Care Provider Reason for Visit Reason Comments Refill Request Encounter Details Date Type Department Care Team Description 07/09/2003 Refill [facility] Amor Tubbs MD Refill Request [place] [address] [address] [facility] [address] [place] [address] [place] [address] [phone] (Wo rk) Social History Tobacco Use Types Packs/Day Years Used Date Smoking Tobacco: Every Day Comments: LESS THAN 1 PPD Alcohol Use Standard Drinks/Week Comments Yes 0 (1 standard drink = 0.6 oz pure alcoho l) SMALL Sex Assigned at Date Recorded Not on file documented as of this encounter Miscellaneous Notes Telephone Encounter - 07/09/2003 11:59 PM SHINE WORKER >> AMOR Terrazas Jul 09, 2003 10:21 PM >> CALL RECEIVED. Contact: documented in this encounter Plan of Treatment Not on filedocumented as of this encounter Visit Diagnoses Diagnosis ERRONEOUS ENCOUNTER--DISREGARD - Primary documented in this encounter Care Teams Field Professional Relationship Specialty Start Date End Date Amor Montgomery MD PCP - General 09/24/01 05/05/13 [facility] [address] [place] [address] documented as of this encounter
--- OUTSIDE RECORDS SUMMARY | 2022-06-23 00:54 | XMS_ITS | Encounter Summary ---
:1965 Author Organization [place] Address [address] [place] [address] Care Team Providers Name Role Phone Nissa Cassidy DO Primary Care Provider [phone] Harriet Haley MD Primary Care Provider [phone] Encounter Details Date Type Department Care Team Description 02/08/2015 Surgery - [facility] Anamika Diane OR MD Jamin [address] [facility] [employer]NERS CASE FOLDER PA [address] [address] [facility] [address] [place], [place] [address] (Wo rk) Social History [...] on filedocumented in this encounter Care Teams Chassis Mechanic Relationship Specialty Start Date End Date Nissa Cassidy DO PCP - General Internal Medicine 05/06/13 09/30/[address] [address] Harriet Haley MD PCP - General Physician Practicing Md Anesthesiologist 10/01/[address] [address] documented as of this encounter
--- OUTSIDE RECORDS SUMMARY | 2022-06-23 00:54 | XMS_ITS | Encounter Summary ---
:1965 Author Organization [facility] Address [address] [place] [address] Care Team Providers Name Role Phone Harriet Haley MD Primary Care Provider Reason for Referral Rehab Therapy Physical Therapy Specialty Diagnoses / Procedures Referred By Contact Refer red To Contact [facility] [address] [place] [address] Referral ID Status Reason Start Date Expiration Date Visits Requ ested Visits Authorized BER MAGISTRATE Specialty Diagnoses / Procedures Referred By Contact Refer red To Contact Arley Matute DO [address] [place] [address] Referral ID Status Reason Start Date Expiration Date Visits Requ ested Visits Authorized BER MAGISTRATE Reason for Visit Reason Comments Other Multiple Complaints Auth/Cert Specialty Diagnoses / Procedures Referred By Contact Refer red To Contact Diagnoses Weakness of both lower extremities Bilateral low back pain without sciatica Acute low back pain Rh 5 [facility] [address] [place], [place] [address] Phone: Fax: Referral ID Status Reason Start Date Expiration Date Visits Requ ested Visits Authorized [id number] 10/02/2015 10/01/2016 1 1 Encounter Details Date Type Department Care Team Description [facility] [address] [place] [address] Acute low back pain (Primary Dx); 10/03/2015 [place] [address] Medical [place], Aamir Tomlinson MD [address] [place] [address] Bilateral low back pain without sciatica ; Surgical Weakness of both lower extre mities; [address] Constipation, unspecified co nstipation type; [place] Low back pain potentially associated with [...] Comments Blood Pressure 131/66 10/03/2015 3:30 PM CHAMBER MAGISTRATE Pulse 94 10/03/2015 3:30 PM CHAMBER MAGISTRATE Temperature 36.5 ??C (97.7 ??F) 10/03/2015 3:30 PM CHAMBER MAGISTRATE Respiratory Rate 16 10/03/2015 3:30 PM CHAMBER MAGISTRATE Oxygen Saturation 94% 10/03/2015 3:30 PM CHAMBER MAGISTRATE Inhaled Oxygen Concentration - - Weight 106.6 kg (235 lb) 10/01/2015 11:13 AM CHAMBER MAGISTRATE Height 172.7 cm (5' 7.99) 10/01/2015 11:13 AM CHAMBER MAGISTRATE Body Mass Index 35.74 10/01/2015 11:13 AM CHAMBER MAGISTRATE documented in this encounter Discharge Summaries Arley Matute DO - 10/03/2015 3:40 PM CST [facility] Discharge Summary Hospitalist Date of Admission: 10/01/2015 Date of Discharge: 10/03/2015 6:10 PM Provider: Arley Matute DO [facility] Date of Service (when I last saw [...] IP CONSULT Time Spent on This Encounter IArely, personally saw the patient today and spent [...] 10 CR 0.76 GFRESTIMATED 81 GFRESTBLACK >90African Turkmen GFR Calc DRE 8.9 Recent Labs Lab [...] steroid injection with no initial pain relief. watermelon inspector results pending. JOSE WELLS PA-C XR Epidural [...] steroid injection with no initial pain relief. watermelon inspector results pending. JOSE WELLS PA-C BER MAGISTRATE documented in this encounter Medications at Time [...] PM CST OBSERVATION patient END time: 1800 BER MAGISTRATE Yvrose Garcia MD - 10/03/2015 12:11 PM [...] for procedural details. Provider name: Jose Wells Scleroscope Tester(s):None BER MAGISTRATE Arley Matute DO - 10/03/2015 9:42 AM [...] functions indep at baseline, works as a [employer]. (R) Functional Level Prior (R) Ambulation 0-->independent [...] Evaluation Time Total Evaluation Time (Minutes) 15 BER MAGISTRATE Arley Matute DO - 10/02/2015 3:57 PM CST [facility] Hospitalist Progress Note Name: Mariusz Griffiths Provider: Arley Matute DO [facility] Date of Service: 10/02/2015 Assessment and Plan [...] 10 CR 0.76 GFRESTIMATED 81 GFRESTBLACK >90African Turkmen GFR Calc DRE 8.9 No results found for this or any previous visit (from the past 24 hour(s)). BER MAGISTRATE Praveen Macahdo - 10/02/2015 2:52 PM CST 10/02/15 1400 Visit Information Visit Made By Staff Electrical Sign Wirer Type of Visit Initial Visited Patient Interventions Plan of Care Review With interdisciplinary team Basic Spiritual Interventions Assessment of spiritual needs/resources;Reflective conversation;Prayer;Facilitating connection with other support resources Advanced Assessments/Interventions Presenting Concerns/Issues Spiritual/hoahaoism/emotional support;Grief and adjustment issues SP[facility]UAL HE[facility] SERVICES Progress Note [facility] Med. Surg. 5 DATA: Visited pt per her request for roundsman support. Pt reported that she is being [...] her therapist among those within her support [place]. She asked for grief support [place] ups [...] available per pt's request. Praveen Machado M.Div., [facility] Staff Electrical Sign Wirer Pager [phone] BER MAGISTRATE documented in this encounter H&P Notes Olga Lidia Dumont PA-C - 10/01/2015 5:11 PM CST [facility] Outpatient / Observation Unit History and Physical [...] Fibromyalgia - resume home meds Plan: 1. [place] to Observation 2. Neuro checks Q4 and [...] 10 CR 0.76 GFRESTIMATED 81 GFRESTBLACK >90African Turkmen GFR Calc DRE 8.9 Recent Labs Lab [...] canal stenosis. MD Olga Lidia HARRIS PA-C BER MAGISTRATE Associated attestation - Arley Matute DO - 10/01/2015 9:49 PM CHAMBER MAGISTRATE Physician Attestation IArley, saw and evaluated Mariusz [...] here we may need to contact her medical claims manager. For now plan pain control and neuro [...] spine some time ago, unclear when at [facility], the results of which we do not have. She has been treated by her medical claims manager for spondylosing ankylosis and has had a [...] ambulated further because of concern of risk. [id number] was normal. LABORATORY: Her labs included normal [...] EM#[id number] Name: MARIUSZ GRIFFITHS MRN: [id number] Account: [id number] : 1965 Consult Date: 10/02/2015 Document: [id number] BER MAGISTRATE Kunal Villarreal PA-C - 10/02/2015 12:17 PM CSTAssociated Order(s): SPINE SURGERY ADULT IP CONSULT [facility] Spine Consultation Mariusz Griffiths Age: [id number] [...] cervical radiculopathy and underwent an acdf at [facility] in 2004. She did well [...] ALSO Family history reviewed and updated in [facility] Immunizations: Immunization History Administered Date(s) Administered [...] labs and imaging. Kunal Villarreal PA-C, LEEANNE BER MAGISTRATE documented in this encounter ED Notes Lizzy Montes RN - 10/01/2015 1:05 PM CST Pt concerned that her BP is elevated. Pt was assured we will continue to monitor is while she is here. Will address with Florencia. BER MAGISTRATE Andrea Don APRN CNP - 10/01/2015 11:21 [...] Medications: Duloxetine Levothyroxine sodium Gabapentin Fioricet Lorazepam [place] Effexor Zyban Past Medical History: Migraine Herpes [...] an appointment with later this week at [facility] (163) I spoke with Dr. Negro production floater for neurology (163) I rechecked and updated [...] versus waiting for her scheduled appointment with [facility] Neurology on Thursday. The patient was concerned [...] both lower extremities M62.81 Roxana Chuier 10/01/2015 [facility] EMERGENCY DEPARTMENT I, Roxana Hanna, farideh serving as a scribe at 11:21 AM on 10/01/2015 to document services personally performed by Andrea Don APRN based on my observations and the provider's statements to me. Andrea Don APRN PAPER BAG PRESS OPERATOR 10/01/15 1746 BER MAGISTRATE Gertrude Herman RN - 10/01/2015 11:15 AM [...] urinary symptoms. Pt's home meds: see epic BER MAGISTRATE documented in this encounter Miscellaneous Notes Plan [...] were addressed with patient. Patient's providing transport. BER MAGISTRATE Plan of Care - Gerardo Mccurdy, PT [...] goal(s). See goals on Care Plan in [facility] electronic health record for goal details. Goals partially met. Barriers to achieving goals: discharge from facility. Therapy recommendation(s): Continued therapy is recommended. Rationale/Recommendations: OP PT to imrove strength, mobility, andpain management.. BER MAGISTRATE Plan of Care - Hannah Bermudez RN - 10/03/2015 1:45 PM CST Problem: Individualization Goal: Patient Preferences Outcome: Improving Returned from injection -- requested oxy x1 on arrival ---- up to bathroom Voiding without problems-- appetite good resting comfortable between checks BER MAGISTRATE Plan of Care - Rina Josue RN [...] narcotics/constipation. Uneventful night. Slept well between cares. BER MAGISTRATE Plan of Care - Vanessa Sanabria RN [...] tomorrow. Ambulated in halls with + cane. BER MAGISTRATE Plan of Care - Gerardo Mccurdy, PT [...] continue periodically and attempt gait afterward with [facility]. PT will check back tomorrow. Recommend d/c home with spouse support and OP PT, may benefit fromcane with gait pending improvement in pain and unsteadiness. BER MAGISTRATE Utilization Review - Darshan Marley DO - 10/02/2015 3:51 PM CST [facility] Admission Status; Concurrent Review Determination Admission [...] 49 year old female presented to the [facility] ED yesterday with tremor and left [...] Marley DO MPH Physician Advisor Utilization Review [facility]. BER MAGISTRATE Plan of Care - Jaci Pearce RN [...] Consults: Neuro and spine. PT. Disposition: TBD BER MAGISTRATE Plan of Care - Rina Josue RN [...] updated & understand POC. Voiding well. VSS. BER MAGISTRATE Plan of Care - Meseret Nieto RN - 10/01/2015 10:50 PM CST Problem: Goal Outcome Summary Goal: Goal Outcome Summary Outcome: No Change VSS. Alert and [place]. Up with SB assist to bedside commode. Pain 5-6/10 in back controlled with Oxy, Tylenol and atarax. neuro checks Q4 intact. But weak dorsi and plantar flexion. BER MAGISTRATE Pharmacy-Admission Medication History - Darshan Pepe RPH - 10/01/2015 5:38 PM CHAMBER MAGISTRATE Admission medication history interview status for this patient is complete. See [facility] admission navigator for allergy information, prior to admission medications and immunization status. Medication history interview source(s):Patient Medication history resources (including written lists, pill bottles, clinic record):None Changes made to HEDDLE MACHINE OPERATOR medication list: Added: LuisaaMariano SR, Chantix, cymbalta, [...] daily 10/01/2015 at AM Yes Reported, Patient BER MAGISTRATE documented in this encounter Plan of Treatment [...] 10:47 Results for this TRANSFORAMINAL INJ AM CHAMBER MAGISTRATE procedure are in RIGHT the results section. XR LUMBAR SACRAL Routine 10/03/2015 10:33 Results for this TRANSFORMINAL INJ LEFT AM CHAMBER MAGISTRATE proce dure are in the results section. INR Routine 10/03/2015 6:55 AM Bilateral low back Res ults for this CHAMBER MAGISTRATE pain without procedure are i n sciatica the results section. MR LUMBAR SPINE W/O STAT 10/01/2015 2:45 PM Re sults for this CONTRAST CHAMBER MAGISTRATE procedure are i n the results section. URINE MACROSCOPIC WITH Routine 10/01/2015 12:13 R esults for this REFLEX TO MICRO PM CHAMBER MAGISTRATE procedure ar e in the results section. BASIC METABOLIC PANEL STAT 10/01/2015 11:55 Re sults for this AM CHAMBER MAGISTRATE procedure are i n the results section. CBC WITH PLATELETS STAT 10/01/2015 11:55 Resul ts for this AM CHAMBER MAGISTRATE procedure are i n the results section. documented in this encounter Results XR Lumbar Transforaminal Inj Single (10/03/2015 10:47 AM CHAMBER MAGISTRATE) Anatomical Region Laterality Modality Spine Radio Fluoroscopy Specimen (Source) Anatomical Location Collection Method / Collectio n Time Received Time / Laterality Volume Impressions 10/03/2015 10:59 AM CHAMBER MAGISTRATE Impression: ??Technically successful transforaminal lumbar epidural steroid injection with no initial pain r elief. [facility] results pending. JOSE WELLS PA-C Narrative 10/03/2015 10:59 AM CHAMBER MAGISTRATE XR LUMBAR TRANSFORAMINAL ADDITIONAL, XR LUMBAR TRANSFORAMINAL [...] injection with no initial pain r elief. [facility]CI results pending. JOSE WELLS PA-C Kunal Villarreal PA-C IMG DIAGNOSTIC IMAGING ORDER NATALY XR Epidural Transforaminal Lumbar Addl (10/03/2015 10:33 AM CHAMBER MAGISTRATE) Anatomical Region Laterality Modality Spine Radio Fluoroscopy Specimen (Source) Anatomical Location Collection Method / Collectio n Time Received Time / Laterality Volume Impressions 10/03/2015 10:59 AM CHAMBER MAGISTRATE Impression: ??Technically successful transforaminal lumbar epidural steroid injection with no initial pain r elief. watermelon inspector results pending. JOSE WELLS PA-C Narrative 10/03/2015 10:59 AM CHAMBER MAGISTRATE XR LUMBAR TRANSFORAMINAL ADDITIONAL, XR LUMBAR TRANSFORAMINAL [...] injection with no initial pain r elief. watermelon inspector results pending. JOSE WELLS PA-C Aamir Neville MD IMG DIAGNOSTIC IMAGING ORDER NATALY INR (10/03/2015 6:55 AM CHAMBER MAGISTRATE) P athologist Signature INR 0.98 0.86 - 1.14 [facility] Specimen Anatomical Collection Method Collection Time Receive d Time (Source) Location / / Volume Laterality Blood specimen 10/03/2015 6:55 AM 016 7:12 (specimen) CHAMBER MAGISTRATE AM CHAMBER MAGISTRATE Kunal Villarreal PA-C LAB - BLOOD ORDERABLES Performing Organization Address City/State/ZIP Code Phon e Number M [facility] [address] [place], [place] [address] HOSPITAL [facility] [address] [place], [place] [address] [phone] Lumbar spine MRI w/o contrast (10/01/2015 2:45 PM CHAMBER MAGISTRATE) Anatomical Region Laterality Modality Spine, SUBRAD MR MSK, UMP MR SPINE Magne tic Resonance Specimen (Source) Anatomical Location Collection Method / Collectio n Time Received Time / Laterality Volume Impressions 10/01/2015 3:07 PM CHAMBER MAGISTRATE IMPRESSION: At L3-L4 there is a small left central disc extrusion resulting in mild central canal stenosis . YEMI COATES MD Narrative 10/01/2015 3:07 PM CHAMBER MAGISTRATE MRI LUMBAR SPINE WITHOUT CONTRAST ?? 10/01/2015 [...] stenosis . YEMI COATES MD Andrea Don CORRECTIONS NURSE PAPER BAG PRESS OPERATOR IMG MRI ORDERABLES UA reflex to Microscopic (10/01/2015 12:13 PM CHAMBER MAGISTRATE) [facility] Method Time Signature Color Urine Straw [facility] Appearance Urine Clear [facility] Glucose Urine Negative NEG mg/dL [facility] Bilirubin Urine Negative NEG [facility] Ketones Urine Negative NEG mg/dL [facility] Specific [place] 1.003 1.003 [place] Urine 1.035 [facility] Blood Urine Negative NEG [facility] pH Urine 6.5 5.0 - 7.0 [place] pH [facility] Protein Albumin Negative NEG mg/dL [facility] Urobilinogen Normal 0.0 - 2.0 [place] mg/dL mg/dL [facility] Nitrite Urine Negative NEG [facility] Leukocyte Negative NEG [place] Esterase Urine [facility] Source Midstream [facility] Specimen Anatomical Collection Method Collection Time Receive d Time (Source) Location / / Volume Laterality Urine specimen URINE SPECIMEN 10/01/2015 12:13 016 (specimen) OBTAINED BY CLEAN PM CHAMBER MAGISTRATE 12:[address] CATCH PROCEDURE / Unknown Andrea Don APRN PAPER BAG PRESS OPERATOR LAB - URINE ORDERABLES Performing Organization Address City/[facility]/ZIP [facility] Phon e Number M [facility] [address] [place], [place] [address] [facility] [address] [place], [place] [address] [facility] [phone] (ABNORMAL) Basic metabolic panel (10/01/2015 11:55 AM CHAMBER MAGISTRATE) athologist Signature Sodium 136 133 - 144 [facility] mmol/L [facility] Potassium 4.5 3.4 - 5.3 [facility] mmol/L [facility] Comment: Specimen slightly hemolyzed, po tassium may be falsely elevated Chloride 104 94 - 109 mmol/L [facility] Carbon Dioxide 24 20 - 32 mmol/L [facility] Anion Gap 8 3 - 14 mmol/L [facility] Glucose 113 (H) 70 - 99 mg/dL [facility] Urea Nitrogen 10 7 - 30 mg/dL [facility] Creatinine 0.76 0.52 - 1.04 mg/dL [facility] GFR Estimate 81 >60 mL/min/1.7m2 [facility] Comment: Non GFR Calc GFR Estimate If Black >90 >60 mL/min/1.7m2 [facility] GFR Calc [facility] Calcium 8.9 8.5 - 10.1 mg/dL [facility] Specimen Anatomical Collection Method Collection Time Receive d Time (Source) Location / / Volume Laterality Blood specimen 10/01/2015 11:55 6 (specimen) AM CHAMBER MAGISTRATE 12:24 PM CHAMBER MAGISTRATE Andrea Don APRN PAPER BAG PRESS OPERATOR LAB - BLOOD ORDERABLES Performing Organization Address City/[facility]/ZIP [facility] Phon e Number M [facility] [address] [place], [place] [address] [facility] [address] [place], [place] [address] [facility] [phone] CBC (platelets, no diff) (10/01/2015 11:55 AM CHAMBER MAGISTRATE) P athologist Signature WBC 9.5 4.0 - 11.0 [place] 10e9/L [facility] RBC Count 4.32 3.8 - 5.2 [place] 10e12/L [facility] Hemoglobin 13.0 11.7 - [place] 15.7 g/dL [facility] Hematocrit 37.8 35.0 - [place] 47.0 % [facility] MCV 88 78 - 100 [facility] MCH 30.1 26.5 - [place] 33.0 pg [facility] MCHC 34.4 31.5 - [place] 36.5 g/dL [facility] RDW 14.6 10.0 - [place] 15.0 % [facility] Platelet Count 269 150 - 450 [address] [facility] Specimen Anatomical Collection Method Collection Time Receive d Time (Source) Location / / Volume Laterality Blood specimen 10/01/2015 11:55 6 (specimen) AM CHAMBER MAGISTRATE 12:24 PM CHAMBER MAGISTRATE Andrea Don APRN PAPER BAG PRESS OPERATOR LAB - BLOOD ORDERABLES Performing Organization Address City/State/ZIP Code Phon e Number M [place] [address] [place], [place] [address] [address] [phone] documented in this encounter Visit Diagnoses Diagnosis [...] 1,000 mLs 2000 mL/hr Intravenous, 1,000 mL, CHAMBER MAGISTRATE ONCE, at 2,000 mL/hr, Administer over 30 Minutes, On Thu10/01/15 at 1138, For 1 dose acetaminophen (TYLENOL) tablet 1,000 mg Given 10/03/2015 3:57 PM CHAMBER MAGISTRATE 1,000 mg 1,000 mg, Oral, 3 TIMES DAILY, First dose on Thu10/01/15 at 2200, Alternate ibuprofen (if ordered) with acetaminophen. Maximum acetaminophen dose from all sources = 75 mg/kg/day not to exceed 4 gram Given 10/03/2015 8:10 AM CHAMBER MAGISTRATE 1,000 mg Given 10/02/2015 9:40 PM CHAMBER MAGISTRATE 1,000 mg dexamethasone (DECADRON) 10 MG/ML inject ion Starting on Thu10/03/15 at 1000, For 1 dose, NUNU MCCOY CKI: cabinet override dexamethasone (DECADRON) injection 30 mg Given 10/03/2015 10:21 AM CHAMBER MAGISTRATE 10 mg 30 mg, Intravenous, EVERY 6 HOURS, First dose on Thu10/03/15 at 1030 dexamethasone (DECADRON) injection 30 mg Given 10/03/2015 10:44 AM CHAMBER MAGISTRATE 30 mg 30 mg, INTRA-ARTICULAR, ONCE, On Thu10/03/15 at 1045, For 1 dose, Given by Jose Simental DULoxetine (CYMBALTA) DR capsule 120 mg Given 10/02/2015 9:39 PM CHAMBER MAGISTRATE 120 mg 120 mg, Oral, EVERY EVENING, First dose on Thu10/01/15 at 2045 Given 10/01/2015 9:16 PM CHAMBER MAGISTRATE 120 mg hydrOXYzine (ATARAX) tablet 25 mg Given 10/02/2015 9:39 PM CHAMBER MAGISTRATE 25 mg 25 mg, Oral, EVERY 6 HOURS PRN, other, adjuvant pain, Starting on Thu10/01/15 at 1821 Given 10/02/2015 12:22 PM CHAMBER MAGISTRATE 25 mg Given 10/02/2015 4:41 AM CHAMBER MAGISTRATE 25 mg hydrOXYzine (ATARAX) tablet 50 mg Given 10/01/2015 9:16 PM CHAMBER MAGISTRATE 50 mg 50 mg, Oral, EVERY 6 HOURS PRN, other, adjuvant pain, Starting on Thu10/01/15 at 1821 iopamidol (ISOVUE-M 200) 41% Given by Renetta 10/03/2015 10:34 AM CHAMBER MAGISTRATE 3 mLs solution 10 mL 10 mL, EPIDURAL, ONCE, On Thu10/03/15 at 1045, For 1 dose ketorolac (TORADOL) injection 30 mg Given 10/01/2015 12:00 PM CHAMBER MAGISTRATE 30 mg 30 mg, Intravenous, ONCE, On Thu10/01/15 at 1138, For 1 dose levothyroxine (SYNTHROID, LEVOTHROID) tablet Given 8:10 AM CHAMBER MAGISTRATE 88 mcg 88 mcg 88 mcg, Oral, DAILY, First dose on Thu10/02/15 at 0900 Given 10/02/2015 9:02 AM CHAMBER MAGISTRATE 88 mcg lidocaine (PF) (XYLOCAINE) 1 % injection Starting on Thu10/03/15 at 1000, For 1 dose, NUNU MCCOY CKI: cabinet override Lidocaine 1 % injection 10 mL Given 10/03/2015 10:22 AM CHAMBER MAGISTRATE 10 mLs 10 mL, Intradermal, ONCE, On Thu10/03/15 at 1030, For 1 dose Lidocaine 1 % injection 5 mL Given 10/03/2015 10:23 AM CHAMBER MAGISTRATE 5 mLs 5 mL, Intradermal, ONCE, On Thu10/03/15 at 1030, For 1 dose oxyCODONE (ROXICODONE) immediate release Given 10/03/2015 3:57 P M CHAMBER MAGISTRATE 10 mg tablet 5-10 mg 5-10 mg, Oral, EVERY 3 HOURS PRN, moderate to severe pain, Starting on Thu10/01/15 at 1821, If age greater than 65 use lower dose for first time use. Given 10/03/2015 10:43 AM CHAMBER MAGISTRATE 10 mg Given 10/03/2015 6:27 AM CHAMBER MAGISTRATE 10 mg pregabalin (LYRICA) capsule 300 mg Given 10/03/2015 8:11 AM CHAMBER MAGISTRATE 300 mg 300 mg, Oral, 2 TIMES DAILY, First dose on Thu10/01/15 at 2100 Given 10/02/2015 9:39 PM CHAMBER MAGISTRATE 300 mg Given 10/02/2015 9:01 AM CHAMBER MAGISTRATE 300 mg senna-docusate (SENOKOT-S;PERICOLACE) Given 10/03/2015 8:10 [...] flush 3 mL Given 10/02/2015 6:13 PM CHAMBER MAGISTRATE 3 mLs 3 mL, Intracatheter, EVERY 8 HOURS, First dose on Thu10/01/15 at 1830, And Q1H PRN, to lock peripheral IV dormant line. Given 10/02/2015 9:03 AM CHAMBER MAGISTRATE 3 mLs Given 10/02/2015 4:42 AM CHAMBER MAGISTRATE 3 mLs traMADol (ULTRAM) tablet 50 mg Given 10/01/2015 2:47 PM CHAMBER MAGISTRATE 50 mg 50 mg, Oral, ONCE, On Thu10/01/15 at 1410, For 1 dose varenicline (CHANTIX) tablet 1 mg Given 10/03/2015 8:10 AM CHAMBER MAGISTRATE 1 mg 1 mg, Oral, 2 TIMES DAILY, First dose on Thu10/01/15 at 2100 Given 10/02/2015 9:40 PM CHAMBER MAGISTRATE 1 mg Given 10/02/2015 9:02 AM CHAMBER MAGISTRATE 1 mg verapamil (CALAN-SR) CR tablet 120 mg Given 10/03/2015 8:11 AM CHAMBER MAGISTRATE 120 mg 120 mg, Oral, EVERY MORNING, First dose on Thu10/02/15 at 0900 Given 10/02/2015 9:01 AM CHAMBER MAGISTRATE 120 mg documented in this encounter Active and Recently Administered Medications Times are shown in CHAMBER MAGISTRATE. Scheduled Medication Order 10/01/2015 10/02/2015 10/03/2015 0.9% [...] protocol. documented in this encounter Care Teams Swimming Pool Maintenance Relationship Specialty Start Date End Date Harriet Haley MD PCP - General Physician Scleroscope Tester 10/01/15 [facility] [address] [place] [id number] documented as of this encounter
--- OUTSIDE RECORDS SUMMARY | 2022-06-23 00:54 | XMS_ITS | Encounter Summary ---
:1965 Author Organization [facility] Address [address] [place] [address] Care Team Providers Name Role Phone Amor Montgomery MD Primary Care Provider Encounter Details Date Type Department Care Team Description 06/03/2006 [facility] Results MAINTENANCE SUPERVISOR ELECTRICAL [address] [place], [place] [address] (Wo rk) Social History [...] TIP, SPINE/PARASPINE DX/THERAPEUTIC INJECTION(06/03/2006 2:30 PM CDT) [facility] Method Time Signature IMAGECAST RADIOLOGY RESULT [...] on filedocumented in this encounter Care Teams Injection Molding Machine Operator Relationship Specialty Start Date End Date Amor Montgomery MD PCP - General 09/24/01 05/05/13 [facility] [address] [place] [address] documented as of this encounter
--- OUTSIDE RECORDS SUMMARY | 2022-06-23 00:54 | XMS_ITS | Encounter Summary ---
:1965 Author Organization [place] Address [address] [place] [address] Care Team Providers Name Role Phone Harriet Haley MD Primary Care Provider [phone] Reason for Referral - Closed Specialty Diagnoses / Procedures Referred By Contact Refer red To Contact Diagnoses Lumbar radicular pain Adriana Johnson APRN Procedures NEEDLE EMG SINGLE FIBER LONG WALL SHEAR OPERATOR [facility] [address] [place] [address] Referral ID Status Reason Start Date Expiration Date Visits Requ ested Visits Authorized [id number] Closed 10/10/2015 10/09/2016 1 1 MED PHYSICIAN Reason for Visit Reason Comments Neurologic Problem LBP with foot drop Encounter Details Date Type Department Care Team Description 10/10/2015 Office Visit [facility] Adriana Johnson Lumbar r adicular pain [facility] MELISSA Mercado CN P (Primary Dx) Clinic [place] [facility] [address] [place] [address] [phone] Social History Tobacco Use Types Packs/Day Years Used Date Smoking Tobacco: Former Cigarettes Quit : 09/15/2015 Alcohol Use Standard Drinks/Week Comments Yes 0 (1 standard drink = 0.6 oz pure alcoho l) SMALL Sex Assigned at Date Recorded Not on file documented as of this encounter Last Filed Vital Signs Vital Sign Reading Time Taken Comments Blood Pressure 118/80 10/10/2015 2:55 PM OCC MED PHYSICIAN Pulse 99 10/10/2015 2:55 PM OCC MED PHYSICIAN Temperature 36.9 ??C (98.5 ??F) 10/10/2015 2:55 PM OCC MED PHYSICIAN Respiratory Rate - - Oxygen Saturation 95% 10/10/2015 2:55 PM OCC MED PHYSICIAN Inhaled Oxygen Concentration - - Weight 106.6 kg (235 lb) 10/10/2015 2:55 PM OCC MED PHYSICIAN Height 170.2 cm (5' 7) 10/10/2015 2:55 PM OCC MED PHYSICIAN Body Mass Index 36.81 10/10/2015 2:55 PM OCC MED PHYSICIAN documented in this encounter Patient Instructions Patient InstructionsSchAdriana rivera APRN CNP - 10/10/2015 2:48 PM OCC MED PHYSICIAN 1. Schedule EMG with Dr. Gil 2. Contact clinic if weakness progresses MED PHYSICIAN documented in this encounter Progress Notes Adriana Johsnon APRN CNP - 10/10/2015 2:[address] Pee Hickey [facility] Neurosurgery Clinic Visit The following is a planning lead of a shared visit between Dr. Pee Hickey and myself, Adriana Mcclure [facility] CC: lumbar radicular pain on the [...] management, MRI results and POC. Adriana Johnson [facility] [address] [address] Pager [phone] MED PHYSICIAN documented in this encounter Nursing Notes Tanja [...] minutes nursing discharge time Tanja Chandra RN MED PHYSICIAN documented in this encounter Plan of Treatment Not on filedocumented as of this encounter Procedures Procedure Name Priority Date/Time Associated Diagnosis Comme nts HC NEEDLE EMG SINGLE Routine 10/10/2015 2:47 PM OCC MED PHYSICIAN Lumbar rad icular pain FIBER documented in this encounter Visit Diagnoses Diagnosis Lumbar radicular pain - Primary Thoracic or lumbosacral neuritis or radi culitis, unspecified documented in this encounter Care Teams Mold Maker Relationship Specialty Start Date End Date Harriet Haley MD PCP - General Physician Editor Department 10/01/15 [facility] [address] [place] [address] documented as of this encounter
--- OUTSIDE RECORDS SUMMARY | 2022-06-23 00:54 | XMS_ITS | Encounter Summary ---
:1965 Author Organization [place] Address [address] [place] [address] Care Team Providers Name Role Phone Amor Montgomery MD Primary Care Provider Nissa Cassidy DO Primary Care Provider Harriet Haley MD Primary Care Provider Encounter Details Date Type Department Care Team Description 01/27/2003 [facility] Amor Montgomery EN COUNTER (Primary Clinic Luly Hugo MD Dx) [address] [place], [place] [address] [place] [address] [place], [place] [address] [phone] (Wo rk) Social History Tobacco Use Types [...] Primary documented in this encounter Care Teams Maltster Relationship Specialty Start Date End Date Amor Montgomery MD PCP - General 09/24/01 05/05/13 [facility] [address] [place] [address] Nissa Cassidy DO PCP - General Internal Medicine 05/06/13 09/30/[address] [id number] Harriet Haley MD PCP - General Physician Inside Sales Associate 10/01/15 [facility] [address] [place], [place] [address] documented as of this encounter
--- OUTSIDE RECORDS SUMMARY | 2022-06-23 00:54 | XMS_ITS | Encounter Summary ---
:1965 Author Organization [place] Address [address] [place] [address] Care Team Providers Name Role Phone Amor Montgomery MD Primary Care Provider Encounter Details Date Type Department Care Team Description 05/12/2006 [facility] [address] [place], [place] [address] (Wo rk) Social History Tobacco Use Types [...] TIP, SPINE/PARASPINE DX/THERAPEUTIC INJECTION(05/12/2006 11:41 AM CDT) [facility] Method Time Signature IMAGECAST RADIOLOGY RESULT [...] on filedocumented in this encounter Care Teams Creative Strategist Relationship Specialty Start Date End Date Amor Montgomery MD PCP - General 09/24/01 05/05/13 [facility] [address] [place] [address] documented as of this encounter
--- OUTSIDE RECORDS SUMMARY | 2022-06-23 00:54 | XMS_ITS | Encounter Summary ---
:1965 Author Organization [place] Address [address] [place] [address] Care Team Providers Name Role Phone Amor Montgomery MD Primary Care Provider Reason for Visit Reason Onset Date Comments Refill Request 05/28/2004 Encounter Details Date Type Department Care Team Description 05/28/2004 Refill [facility] Amor Tubbs MD Refill Request [facility] [address] [facility] [address] [place] [address] [place] [address] [phone] (Wo rk) Social History Tobacco Use Types [...] on filedocumented in this encounter Care Teams Motor Vehicle Operator Road Supervisor Relationship Specialty Start Date End Date Amor Montgomery MD PCP - General 09/24/01 05/05/13 [facility] [address] [place] [address] documented as of this encounter
--- OUTSIDE RECORDS SUMMARY | 2022-06-23 00:54 | XMS_ITS | Encounter Summary ---
:1965 Author Organization [place] Address [address] [place] [address]. [place] [address] Care Team Providers Name Role Phone Amor Curtis MD Primary Care Provider Reason for Visit Reason Comments Headache Sinus Problem Encounter Details Date Type Department Care Team Description 08/23/2003 Telephone [facility] Amor Curtis ramana; Sinus Problem Clinic Luly Hugo MD [address] [place], [place] [address] [place] [address] [place] [address] [phone] Social History Tobacco Use Types Packs/Day Years Used Date Smoking Tobacco: Every Day Comments: LESS THAN 1 PPD Alcohol Use Standard Drinks/Week Comments Yes 0 (1 standard drink = 0.6 oz pure alcoho l) SMALL Sex Assigned at Date Recorded Not on file documented as of this encounter Miscellaneous Notes Telephone Encounter - 08/23/2003 11:59 PM ARABIC LINGUIST >> MANNY GUTIERREZ ThuAug 23, 2003 1:30 [...] on filedocumented in this encounter Care Teams Weight Control Lecturer Relationship Specialty Start Date End Date Amor Curtis MD PCP - General 09/24/01 05/05/13 [facility] [address] [place] [address] documented as of this encounter
--- OUTSIDE RECORDS SUMMARY | 2022-06-23 00:54 | XMS_ITS | Encounter Summary ---
:1965 Author Organization [place] Address [address] [place] [address] Care Team Providers Name Role Phone Amor Montgomery MD Primary Care Provider Reason for Visit Reason Comments Consult Encounter Details Date Type Department Care Team Description 06/29/2003 Office Visit [facility] Amor Montgomery MYALG IA AND MYOSITIS NOS; Clinic Luly Hugo MD ACUTE URI NOS; [address] [place] [facility] TOMACH FUNCTION DIS NEC; [place] DEPRESSIVE DISORDER NEC; [place], [place] [address] MIGRAINE NOS W/O [place]ENTN INTRACTABLE [address] [place] [address] [phone] Social History Tobacco Use Types Packs/Day Years [...] Comments Blood Pressure 132/68 06/29/2003 3:30 PM SENIOR WIND TURBINE TECHNICIAN Pulse 72 06/29/2003 3:30 PM SENIOR WIND TURBINE TECHNICIAN Temperature - - Respiratory Rate 16 06/29/2003 3:30 PM SENIOR WIND TURBINE TECHNICIAN Oxygen Saturation - - Inhaled Oxygen Concentration - - Weight 80.7 kg (178 lb) 06/29/2003 3:30 PM SENIOR WIND TURBINE TECHNICIAN Height - - Body Mass Index 27.06 10/20/2002 1:00 PM SENIOR WIND TURBINE TECHNICIAN documented in this encounter Progress Notes 06/29/2003 3:30 PM SENIOR WIND TURBINE TECHNICIAN Acute problems: GERD, nausea now quite consistently [...] PM Myalgia And Results f or this SENIOR WIND TURBINE TECHNICIAN Myositis Nos procedure are in Acute Uri Nos the results section. HCL HELICOBACTER Routine 06/29/2003 3:59 PM Stomach Function R esults for this PYLORI BRE IGG SENIOR WIND TURBINE TECHNICIAN Dis Nec procedure are in the results section. HCL MONO TEST Routine 06/29/2003 3:59 PM Myalgia And Results for this SENIOR WIND TURBINE TECHNICIAN Myositis Nos procedure are in Acute Uri Nos the results section. HCL TSH Routine 06/29/2003 3:59 PM Myalgia And Results f or this SENIOR WIND TURBINE TECHNICIAN Myositis Nos procedure are in Acute Uri Nos the results section. HCL SED RATE (ESR) Routine 06/29/2003 3:59 PM Myalgia And Res ults for this SENIOR WIND TURBINE TECHNICIAN Myositis Nos procedure are in Acute Uri Nos the results section. documented in this encounter Results HELICOBACTER PYLORI BRE IGG (06/29/2003 3:59 PM SENIOR WIND TURBINE TECHNICIAN) Component Value Ref Test Analysis Performed At [employer] Range Method Time Signature Specimen Serum [facility] Heliobacter No detectable IgG antibody t o Helicobacter pylori. If current infection is MAHOPAC pylori Antibody suspected, please submit a new specimen in 4 to 6 we eks. [facility] Report status FINAL [id number] [facility] Specimen Anatomical Collection Method Collection Time Receive d Time (Source) Location / / Volume Laterality 06/29/2003 3:59 PM 3 4:04 SENIOR WIND TURBINE TECHNICIAN PM SENIOR WIND TURBINE TECHNICIAN Amor Montgomery MD LABORATORY Performing Organization Address City/State/ZIP Code Phon e Number [facility] [address] [place] [address] [facility] (ABNORMAL) SED RATE, AUTO (06/29/2003 3:59 PM SENIOR WIND TURBINE TECHNICIAN) P athologist Signature Sed Rate 22 (H) 0 - 20 mm/h [facility] Specimen Anatomical Collection Method Collection Time Receive d Time (Source) Location / / Volume Laterality 06/29/2003 3:59 PM 3 4:04 SENIOR WIND TURBINE TECHNICIAN PM SENIOR WIND TURBINE TECHNICIAN Amor Montgomery MD LABORATORY Performing Organization Address City/[facility]/ZIP Code Phon e Number [facility] [address] [place], [place] [address] [address] [facility] WBC & DIFF (06/29/2003 3:59 PM SENIOR WIND TURBINE TECHNICIAN) [facility] gist Method Time Signature WBC 8.1 4.0 - [facility] 11.0 [place] 10e9/L CLINIC LAB Diff Method Automated [facility] LAB % Neutrophils 46 40 - 75 % [facility] % Lymphocytes 42 20 - 48 % [facility] % Monocytes 8 0 - 12 % [facility] % Eosinophils 2 0 - 6 % [facility] % Basophils 2 0 - 2 % [facility] Absolute 3.8 1.6 - 8.3 [facility] Neutrophil 10e9/L [facility] Absolute 3.4 0.8 - 5.3 [place] Lymphocytes 10e9/L [facility] Absolute 0.6 0.0 - 1.3 [place] Monocytes 10e9/L [facility] Absolute 0.2 0.0 - 0.7 [place] Eosinophils 10e9/L [facility] Absolute 0.1 0.0 - 0.2 [place] Basophils 10e9/L [facility] Specimen Anatomical Collection Method Collection Time Receive d Time (Source) Location / / Volume Laterality 06/29/2003 3:59 PM 3 4:04 SENIOR WIND TURBINE TECHNICIAN PM SENIOR WIND TURBINE TECHNICIAN Amor Montgomery MD LABORATORY Performing Organization Address City/[facility] Phon e Number [place] [address] [place], [place] [address] [address] [facility] MONO HETEROPHILE (06/29/2003 3:59 PM SENIOR WIND TURBINE TECHNICIAN) Patholo gist Method Time Signature Mononucleosis Negative NEG [facility] Specimen Anatomical Collection Method Collection Time Receive d Time (Source) Location / / Volume Laterality 06/29/2003 3:59 PM 3 4:04 SENIOR WIND TURBINE TECHNICIAN PM SENIOR WIND TURBINE TECHNICIAN Amor Montgomery MD LABORATORY Performing Organization Address City/[facility] Phon e Number [facility] [address] [place], [place] [address] [address] [facility] (ABNORMAL) TSH- (06/29/2003 3:59 PM SENIOR WIND TURBINE TECHNICIAN) P athologist Signature TSH 7.20 (H) 0.4 - 5.0 [place] mU/L [facility] Specimen Anatomical Collection Method Collection Time Receive d Time (Source) Location / / Volume Laterality 06/29/2003 3:59 PM 3 4:04 SENIOR WIND TURBINE TECHNICIAN PM SENIOR WIND TURBINE TECHNICIAN Amor Montgomery MD LABORATORY Performing Organization Address City/State/ZIP Code Phon e Number [facility] [address] [place] [address] [facility] documented in this encounter Visit Diagnoses Diagnosis Myalgia and myositis, unspecified Mylagia and myositis, unspecified Acute upper respiratory infections of un specified site Dyspepsia and other specified disorders of function of stomach Depressive disorder, not elsewhere class ified Migraine, unspecified, without mention o f intractable migraine without mention of status migrainosus documented in this encounter Care Teams Craft Coordinator Relationship Specialty Start Date End Date Amor Montgomery MD PCP - General 09/24/01 05/05/13 [place] [address] [place] [address] documented as of this encounter
--- OUTSIDE RECORDS SUMMARY | 2022-06-23 00:54 | XMS_ITS | Encounter Summary ---
:1965 Author Organization [place] Address [address] [place] [address] Care Team Providers Name Role Phone Amor Montgomery MD Primary Care Provider Encounter Details Date Type Department Care Team Description 03/11/2004 Orders Only [facility] HYP OTHYROIDISM NOS (Primary [facility] Dx) [address] [place] [address] Social History Tobacco Use Types [...] athologist Signature TSH 4.10 0.4 - 5.0 [facility] mU/L CLINIC LAB Specimen Anatomical Collection Method Collection Time Receive d Time (Source) Location / / Volume Laterality 03/11/2004 9:36 AM 4 9:41 CDT AM CDT Amor Montgomery MD LABORATORY Performing Organization Address City/State/ZIP Code Phon e Number [facility] [address] [place] [address] [facility] documented in this encounter Visit Diagnoses Diagnosis Unspecified hypothyroidism - Primary documented in this encounter Care Teams Comb Setter Relationship Specialty Start Date End Date Amor Montgomery MD PCP - General 09/24/01 05/05/13 [place] [address] [place] [address] documented as of this encounter
--- OUTSIDE RECORDS SUMMARY | 2022-06-23 00:54 | XMS_ITS | Encounter Summary ---
:1965 Author Organization [place] Address [address] [place] [address] Care Team Providers Name Role Phone Amor Montgomery MD Primary Care Provider Reason for Visit Reason Comments Refill Request Encounter Details Date Type Department Care Team Description 2003 Refill [facility] Amor Tubbs MD Refill Request [facility] [address] [facility] [address] [place] [address] [place] [address] [phone] (Wo rk) Social History Tobacco Use Types Packs/Day Years Used Date Smoking Tobacco: Every Day Comments: LESS THAN 1 PPD Alcohol Use Standard Drinks/Week Comments Yes 0 (1 standard drink = 0.6 oz pure alcoho l) SMALL Sex Assigned at Date Recorded Not on file documented as of this encounter Miscellaneous Notes Telephone Encounter - 2003 11:59 PM FIBERGLASS FABRICATOR >> RACHEL ESPINOZA ThuOct 25, 2003 10:50 AM >> CALL RECEIVED. Contact: Pt [phone] Ok to leave detailed msg Patient request refill Bottle states last refilled 11-06-02 at [facility]. Last seen 08-24-03 for Migraine documented in this encounter Plan of Treatment Not on filedocumented as of this encounter Visit Diagnoses Not on filedocumented in this encounter Care Teams Psychology Associate Relationship Specialty Start Date End Date Amor Montgomery MD PCP - General 09/24/01 05/05/13 [place] [address] [place] [address] documented as of this encounter
--- OUTSIDE RECORDS SUMMARY | 2022-06-23 00:54 | XMS_ITS | Encounter Summary ---
:1965 Author Organization [place] Address [facility] [place] [address] Care Team Providers Name Role Phone Nissa Cassidy Primary Care Provider [phone] Reason for Visit Reason Comments Abdominal Pain Encounter Details Date Type Department Care Team Description 02/14/2015 [facility] Radha Levine MD Abdominal pain Hospital Emergency [address] [facility] [place] [address] [place] [address] [place] [address] [phone] Social History Tobacco Use Types Packs/Day Years [...] as of this encounter ED Notes Jaclyn Keenan PA-C - 02/14/2015 5:19 PM CDT eMERGENCY [...] her behalf by Kunal Rios, a trained medical laboratory technologist. The creation of this record is based [...] DE SAC; Surgeon: Lizzie Duron MD; Location: [facility]; Service: CURRENT MEDICATIONS Current Outpatient Rx Name [...] Ketones, UA Negative Negative, 60 mg/dL Specific [place], UA 1.005 1.001-1.030 Blood, UA Negative Negative [...] accurate and complete. Jaclyn Keenan PA-C 02/14/15 3081 Radha Babb MD - 02/14/2015 5:19 PM [...] site documented in this encounter Care Teams Brick Tender Relationship Specialty Start Date End Date Nissa Cassidy DO PCP - General Internal Medicine 05/06/13 09/30/[address] [address] documented as of this encounter
--- OUTSIDE RECORDS SUMMARY | 2022-06-23 00:54 | XMS_ITS | Encounter Summary ---
:1965 Author Organization [place] Address [address] [place] [address] Care Team Providers Name Role Phone Amor Curtis MD Primary Care Provider Reason for Visit Reason Comments Medication Request anxiety over dental work Encounter Details Date Type Department Care Team Description 12/15/2003 [facility] Luly Hugo MD (anxiety over dental [address] [facility] work) [place] SYSTEM [address] [address] [phone] [place] [address] Social History Tobacco Use Types Packs/Day Years [...] on filedocumented in this encounter Care Teams Salvage Laborer Relationship Specialty Start Date End Date Amor Curtis MD PCP - General 09/24/01 05/05/13 [place] [address] [place] [address] documented as of this encounter
--- OUTSIDE RECORDS SUMMARY | 2022-06-23 00:55 | XMS_ITS | Encounter Summary ---
:1965 Author Organization [place] Address [address] [place] [address] Care Team Providers Name Role Phone Amor Montgomery MD Primary Care Provider Encounter Details Date Type Department Care Team Description 04/18/2002 Allied Health/Nurse [facility] ERR ONEOUS Visit Clinic [place] ENCOUNTER--DISREGARD [address] (Primary Dx) [place] [address] Social History Tobacco Use Types Packs/Day Years Used Date Smoking Tobacco: Never Assessed Sex Assigned at Date Recorded Not on file documented as of this encounter Plan of Treatment Not on filedocumented as of this encounter Visit Diagnoses Diagnosis ERRONEOUS ENCOUNTER--DISREGARD - Primary documented in this encounter Care Teams Germination Worker Relationship Specialty Start Date End Date Amor Montgomery MD PCP - General 09/24/01 05/05/13 [facility] [address] [place] [address] documented as of this encounter
--- OUTSIDE RECORDS SUMMARY | 2022-06-23 00:55 | XMS_ITS | Encounter Summary ---
:1965 Author Organization [place] Address [address] [place] [address] Care Team Providers Name Role Phone Amor Curtis MD Primary Care Provider Reason for Visit Reason Comments Headache Encounter Details Date Type Department Care Team Description 09/22/2002 Office Visit [facility] Amor Curtis MIGRA INE NOS W/O MENTN Clinic Luly Hugo MD INTRACTABLE (Primary [address] [facility] [place] D x) [place], [place] [address] [place] [address] [place] [address] [phone] Social History Tobacco Use Types Packs/Day Years [...] Comments Blood Pressure 102/70 09/22/2002 4:30 PM SUPERVISOR EXTRUSION Pulse 68 09/22/2002 4:30 PM SUPERVISOR EXTRUSION Temperature - - Respiratory Rate 16 09/22/2002 4:30 PM SUPERVISOR EXTRUSION Oxygen Saturation - - Inhaled Oxygen Concentration - - Weight - - Height - - Body Mass Index - - documented in this encounter Progress Notes 09/22/2002 4:30 PM SUPERVISOR EXTRUSION Pt was seen yesterday with sinus infection plus dyspepsia. Stomach is better already on nexium, butnow she has a bad migraine. She has had these from time to time; unfortunately imitrex & maxalt tria ls in past are not helpful. Limited exam done; vitals OK, sinuses black oxide coating equipment tender, pt looks miserable Assessment: migraine CONNER [...] Primary documented in this encounter Care Teams Product Finisher Relationship Specialty Start Date End Date Amor Curtis MD PCP - General 09/24/01 05/05/13 [facility] [address] [place] [address] documented as of this encounter
--- OUTSIDE RECORDS SUMMARY | 2022-06-23 00:55 | XMS_ITS | Encounter Summary ---
:1965 Author Organization [place] Address [facility] [place] [address] Care Team Providers Name Role Phone Amor Montgomery MD Primary Care Provider Reason for Visit Reason Comments Refill Request Encounter Details Date Type Department Care Team Description 06/28/2002 Telephone [facility] [place], Refill Request Clinic Luly MONTILLA [address] [place] [address] [place] [address] [place], [place] [phone] (Wo rk) [address] [phone] Social History Tobacco Use Types Packs/Day Years Used Date Smoking Tobacco: Never Assessed Sex Assigned at Date Recorded Not on file documented as of this encounter Miscellaneous Notes Telephone Encounter - 06/28/2002 11:59 PM STUDENT SERVICES REP >> CHERIE THOMPSON Wed Jul 06, 2002 4:32 PM SAMPLES ARE STILL AT [employer] OPERATOR FOR PT TO PROFESSOR OF THEATER. MESSAGE LEFT WITH A MAN AT HER PHONE # THAT DR. BERUMEN'S OFFICE CALLED AND SHE CAN PROFESSOR OF THEATER HER SAMPLES AT OUR [employer]UM PL[employer] OPERATOR. >> DEVONTE ROCHA Gris Jun 30, 2002 1:06 PM Message left on answering machine for patient to call back regarding phone message, also samples of imitrex 50mg at lead front desk agent for her to try.. >> GUILHERME BERUMEN [...] on filedocumented in this encounter Care Teams Senior Coldfusion Developer Relationship Specialty Start Date End Date Amor Montgomery MD PCP - General 09/24/01 05/05/13 [facility] [address] [place] [address] documented as of this encounter
--- OUTSIDE RECORDS SUMMARY | 2022-06-23 00:55 | XMS_ITS | Encounter Summary ---
:1965 Author Organization [place] Address [address] [place] [address] Care Team Providers Name Role Phone Amor Montgomery MD Primary Care Provider Reason for Visit Reason Comments Mantoux Administration Encounter Details Date Type Department Care Team Description 04/18/2002 Allied Health/Nurse [facility] Administration Visit Clinic [place] [address] [place] [address] Social History Tobacco Use Types [...] Primary documented in this encounter Care Teams Grain Combiner Relationship Specialty Start Date End Date Amor Montgomery MD PCP - General 09/24/01 05/05/13 [place] [address] [place] [id number] documented as of this encounter
--- OUTSIDE RECORDS SUMMARY | 2022-06-23 00:55 | XMS_ITS | Encounter Summary ---
:1965 Author Organization [place] Address [facility] [place] [address] Care Team Providers Name Role Phone Amor Montgomery MD Primary Care Provider Reason for Visit Reason Comments Derm Problem Rash on face, and chest. Erma n lips are itching. Encounter Details Date Type Department Care Team Description 10/20/2002 Office Visit [facility] Carlos Tomlinson M D NONSPECIF SKIN ERUPT Clinic [place] RETIRED NEC (Primary Dx) [address] [place] [address] [place] [address] Social History Tobacco Use Types [...] Comments Blood Pressure 100/84 10/20/2002 1:00 PM POST HOLE DIGGER Pulse 80 10/20/2002 1:00 PM POST HOLE DIGGER Temperature 36.6 ??C (97.9 ??F) 10/20/2002 1:00 PM POST HOLE DIGGER Respiratory Rate - - Oxygen Saturation - - Inhaled Oxygen Concentration - - Weight 104.3 kg (230 lb) 10/20/2002 1:00 PM POST HOLE DIGGER Height 172.7 cm (5' 8) 10/20/2002 1:00 PM POST HOLE DIGGER Body Mass Index 34.97 10/20/2002 1:00 PM POST HOLE DIGGER documented in this encounter Progress Notes 10/20/2002 1:00 PM POST HOLE DIGGER S: For 1 1/2 days has had [...] Primary documented in this encounter Care Teams Hydrator Operator Relationship Specialty Start Date End Date Amor Montgomery MD PCP - General 09/24/01 05/05/13 [facility] [address] [place] [id number] documented as of this encounter
--- OUTSIDE RECORDS SUMMARY | 2022-06-23 00:55 | XMS_ITS | Encounter Summary ---
:1965 Author Organization [place] Address [address] [place] [address] Care Team Providers Name Role Phone Amor Montgomery MD Primary Care Provider Reason for Referral Consultation - Closed Specialty Diagnoses / Procedures Referred By Contact Refer red To Contact Diagnoses Other specified disorder of skin Amor Montgomery MD [facility] [address] [place] [id number] Referral ID Status Reason Start Date Expiration Date Visits Requ ested Visits Authorized [id number] Closed Other 11/03/2002 08/09/2011 1 1 LOGY NURSE NAVIGATOR Reason for Visit Reason Comments Derm Problem Encounter Details Date Type Department Care Team Description 11/03/2002 Office Visit [facility] Amor Montgomery SKIN DISORDERS [facility] Clinic Luly Hugo MD (Primary Dx) [address] [place], [place] [address] [address] [place] [address] [phone] Social History Tobacco Use Types Packs/Day Years [...] Comments Blood Pressure 138/78 11/03/2002 11:45 AM ONCOLOGY NURSE NAVIGATOR Pulse - - Temperature - - Respiratory Rate - - Oxygen Saturation - - Inhaled Oxygen Concentration - - Weight 81.4 kg (179 lb 8 oz) 11/03/2002 11:45 AM ONCOLOGY NURSE NAVIGATOR Height - - Body Mass Index 27.29 10/20/2002 1:00 PM ONCOLOGY NURSE NAVIGATOR documented in this encounter Progress Notes 11/03/2002 11:45 AM ONCOLOGY NURSE NAVIGATOR 9Pt in with unusual pruritic dermatitis on [...] ry documented in this encounter Care Teams Salvage Supervisor Relationship Specialty Start Date End Date Amor Montgomery MD PCP - General 09/24/01 05/05/13 [place] [id number] [place] [id number] documented as of this encounter
--- OUTSIDE RECORDS SUMMARY | 2022-06-23 00:55 | XMS_ITS | Encounter Summary ---
:1965 Author Organization [place] Address [address] [place] [address] Care Team Providers Name Role Phone Amor Montgomery MD Primary Care Provider Reason for Visit Reason Comments Imm/Inj Encounter Details Date Type Department Care Team Description 04/15/2002 Telephone [facility] Merle Berumen, Imm/Inj [place] MD [address] [place] [address] [place] [address] [phone] Social History Tobacco Use Types Packs/Day Years [...] 2002 10:21 AM >> CALL RECEIVED. Contact: [phone] Pt needs mantoux for school. Sched nurse only need orders documented in this encounter Plan of Treatment Not on filedocumented as of this encounter Visit Diagnoses Diagnosis Screening examination for pulmonary tube rculosis - Primary documented in this encounter Care Teams Dispensing Lead Relationship Specialty Start Date End Date Amor Montgomery MD PCP - General 09/24/01 05/05/13 [place] [id number] [place] [id number] documented as of this encounter
--- OUTSIDE RECORDS SUMMARY | 2022-06-23 00:55 | XMS_ITS | Encounter Summary ---
:1965 Author Organization [place] Address [address] [place] [address] Care Team Providers Name Role Phone Amor Montgomery MD Primary Care Provider Encounter Details Date Type Department Care Team Description 10/14/2002 Abstract [facility] Patricia Null [address] [place] [address] Social History Tobacco Use [...] on filedocumented in this encounter Care Teams Metal Pickling Equipment Operator Relationship Specialty Start Date End Date Amor Montgomery MD PCP - General 09/24/01 05/05/13 [facility] [address] [place] [id number] documented as of this encounter
--- OUTSIDE RECORDS SUMMARY | 2022-06-23 00:55 | XMS_ITS | Encounter Summary ---
:1965 Author Organization [place] Address [address] [place] [address] Care Team Providers Name Role Phone Amor Montgomery MD Primary Care Provider Reason for Visit Reason Comments RECHECK Encounter Details Date Type Department Care Team Description 10/14/2002 Office Visit [facility] Amor Montgomery HEADA [facility]; Clinic Luly Kelly MD TOBACCO USE DISORDER [address] [place], [place] [address] [place] [address] [place] [address] [phone] Social History Tobacco Use Types Packs/Day Years [...] Comments Blood Pressure 122/78 10/14/2002 11:15 AM CHECKROOM CHIEF Pulse - - Temperature - - Respiratory Rate 16 10/14/2002 11:15 AM CHECKROOM CHIEF Oxygen Saturation - - Inhaled Oxygen Concentration - - Weight 82.6 kg (182 lb) 10/14/2002 11:15 AM CHECKROOM CHIEF Height - - Body Mass Index - - documented in this encounter Progress Notes 10/14/2002 11:15 AM CHECKROOM CHIEF Follow-up visit: 1. Migraine CONNER's 2. smoking [...] Axert samples did help , however, the CONNRE later reoccurred. She has not been on [...] disorder documented in this encounter Care Teams Pulp Grinder Feeder Relationship Specialty Start Date End Date Amor Montgomery MD PCP - General 09/24/01 05/05/13 [facility] [address] [place] [id number] documented as of this encounter
--- OUTSIDE RECORDS SUMMARY | 2022-06-23 00:55 | XMS_ITS | Encounter Summary ---
:1965 Author Organization [place] Address [address] [place] [address] Care Team Providers Name Role Phone Amor Montgomery MD Primary Care Provider Reason for Visit Reason Comments Consult Encounter Details Date Type Department Care Team Description 09/21/2002 Office Visit [facility] Amor Montgomery ABDOM INAL PAIN EPIGASTRIC (Primary Dx); Clinic Luly Hugo MD ACUTE MAXILLARY SINUSITIS [address] [place], [place] [address] [place] [place] [address] [place] [address] [phone] Social History Tobacco Use Types Packs/Day Years [...] Comments Blood Pressure 128/70 09/21/2002 4:00 PM RETAIL PARTS PRO Pulse 68 09/21/2002 4:00 PM RETAIL PARTS PRO Temperature 37.1 ??C (98.8 ??F) 09/21/2002 4:00 PM RETAIL PARTS PRO Respiratory Rate 16 09/21/2002 4:00 PM RETAIL PARTS PRO Oxygen Saturation - - Inhaled Oxygen Concentration - - Weight 81.6 kg (180 lb) 09/21/2002 4:00 PM RETAIL PARTS PRO Height - - Body Mass Index - - documented in this encounter Progress Notes 09/21/2002 4:00 PM RETAIL PARTS PRO Pt in with a very prolonged URI, [...] PM Abdominal Pain Re sults for this RETAIL PARTS PRO Epigastric procedure are i n the results section. HCL HELICOBACTER Routine 09/21/2002 4:45 PM Abdominal Pain Res ults for this PYLORI BRE IGG [employer] PRO Epigastric procedure are in the results section. HEMOGRAM Routine 09/21/2002 4:45 PM Abdominal Pain Results for this [employer]AIL [employer]S PRO Epigastric procedure are i n the results section. documented in this encounter Results (ABNORMAL) A.M.A. HEPATIC PANEL (09/21/2002 4:45 PM RETAIL PARTS PRO) Analysis Performed At Patho logis Time Signature Bilirubin 0.0 0.0 - 0.3 [place] Conjugated mg/dL [facility] Bilirubin Delta 0.1 0.0 - 0.4 [place] mg/dL [facility] Bilirubin Total 0.2 0.2 - 1.3 [place] mg/dL [facility] Albumin 4.4 3.3 - 4.6 [place] g/dL [facility] Protein Total 8.6 (H) 6.0 - 8.2 [place] g/dL [facility] Alkaline 84 40 - 150 [place] Phosphatase U/L [facility] ALT 24 0 - 50 U/L [facility] AST 25 0 - 45 U/L [facility] Specimen Anatomical Collection Method Collection Time Receive d Time (Source) Location / / Volume Laterality 09/21/2002 4:45 PM 3 4:46 [employer]AIL [employer] PRO PM [employer] PRO Amor Montgomery MD LABORATORY Performing Organization Address City/[facility]/ZIP Code Phon e Number [facility][1] [address] [place] [address] [facility] HEMOGRAM (09/21/2002 4:45 PM [employer] PRO) P athologist Signature WBC 10.1 4.0 - 11.0 [facility] 10e9/L CLINIC LAB RBC Count 4.88 3.8 - 5.2 [facility] 10e12/L [facility] LAB Hemoglobin 15.6 11.7 - 15.7 [facility] g/dL CLINIC LAB Hematocrit 46.0 35.0 - 47.0 [facility] % CLINIC LAB MCV 94 78 - 100 fl [facility] MCH 32.0 26.5 - 33.0 [facility] [address] [facility] MCHC 34.0 32.0 - 36.0 [facility] g/dL CLINIC LAB RDW 11.3 10.0 - 15.0 [facility] % [facility] Specimen Anatomical Collection Method Collection Time Receive d Time (Source) Location / / Volume Laterality 09/21/2002 4:45 PM 3 4:46 [employer]AIL [employer]S PRO PM RETAIL [employer]S PRO Amor Montgomery MD LABORATORY Performing Organization Address City/[facility]/ZIP Code Phon e Number [place] [address] [place], [place] [address] [address] [facility] HELICOBACTER PYLORI BRE IGG (09/21/2002 4:45 PM [employer]AIL [employer] PRO) Component Value Ref Test Analysis Performed At [facility] gist Range Method Time Signature Specimen Serum [facility] Heliobacter No detectable IgG antibody t o Helicobacter pylori. If current infection is [place] pylori Antibody suspected, please submit a new specimen in 4 to 6 we eks. [facility] Report status FINAL [id number] [facility] Specimen Anatomical Collection Method Collection Time Receive d Time (Source) Location / / Volume Laterality 09/21/2002 4:45 PM 3 4:46 [employer]AIL [employer] PRO PM [employer] PRO Amor Montgomery MD LABORATORY Performing Organization Address City/State/ZIP Code Phon e Number [facility][1] [address] [place] [address] [facility] documented in this encounter Visit Diagnoses Diagnosis Abdominal pain, epigastric - Primary Acute maxillary sinusitis documented in this encounter Care Teams Glassblower Relationship Specialty Start Date End Date Amor Montgomery MD PCP - General 09/24/01 05/05/13 [facility] [address] [place] [id number] documented as of this encounter
[2022-06-23 00:57] LABS: Slide Review Reflex No
[2022-06-23 01:00] VITALS: BP 130/70; PULSE 78; RESP 19; O2SAT 97
[2022-06-23 01:01] LABS: Appearance Urine Clear (Clear); Bilirubin Urine Negative (Negative); Blood Urine Trace-intact (Negative); Color Urine Yellow (Yellow); Glucose Urine Negative (Negative); Ketones Urine Negative (Negative); Leukocyte Esterase Urine Trace (Negative); Nitrite Urine Negative (Negative); Protein Urine Negative (Negative); Urobilinogen Urine 0.2 (0.2-1.0); pH Urine 6.5 (5.0-8.5)
[2022-06-23] MEDS: 0.9 % SODIUM CHLORIDE 1000 ml 1,000 ML IV (01:01)
[2022-06-23 01:07] LABS: Chloride* 103 mmol/L (96-114); Sodium* 141 mmol/L (135-149)
[2022-06-23 01:10] LABS: Est. Creatinine Clearance* 63.37; Estimated Glomerular Filt Rate 66 ml/min
[2022-06-23 01:11] LABS: Blood Urea Nitrogen* 12 mg/dL (7-30); Calcium* 9.7 mg/dL (8.4-10.6); Carbon Dioxide* 33 mmol/L (20-32); Glucose* 99 mg/dL (60-115)
[2022-06-23 01:12] LABS: Bacteria Urine Moderate; Squamous Epithelial Cell Urine Few (None-Few); WBC Urine 0-2 (0-5)
[2022-06-23 01:15] LABS: C Reactive Protein* < 0.5 mg/dL (0.5-1.0)
[2022-06-23 01:30] VITALS: BP 112/58; PULSE 82; RESP 16; O2SAT 95
== END 2022-06-23 02:08 | disposition home or self-care (01) ==
PROVIDERS: Emergency Provider Family Medicine; PCP Family Medicine
DX: R42 Dizziness and giddiness (principal); N20.1 Calculus of ureter
CPT/HCPCS: 36415; 74176; 80048; 81003; 81015; 83605; 85025; 86140; 87040; 87086; 96361; 96374; 96375; 99283; 99284; J1885; J2405; J7030

== ENCOUNTER 2023-03-12 13:30 | Outpatient (CLI) | payer OTHER, SELFPAY ==
--- NOTE | 2023-03-12 13:40 | CRLHL7_ITS ---
For Patients: As a result of the Century Cures Act, medical imaging exams and procedure reports are released immediately into your electronic medical record. You may view this report before your referring provider. If you have questions, please contact your health care provider. BILATERAL SCREENING MAMMOGRAM WITH COMPUTER-AIDED DETECTION AND TOMOSYNTHESIS TECHNIQUE: CC and MLO views were obtained. These mammographic images have been obtained using full-field digital technique. These mammographic images were interpreted with the benefit of computer-aided detection. Breast Tomosynthesis was used in this interpretation. COMPARISON FILM: 04/23/21, 12/23/18, 06/15/17. FINDINGS: There are scattered areas of fibroglandular density IMPRESSION: There is no radiographic evidence for malignancy. ASSESSMENT: BI-RADS Category 1: Negative RECOMMENDATION: Routine screening mammogram in 1 year. A lay language report of this examination will be provided to the patient. Patrick Bacon M.D. Diagnostic Radiologist [email or web address] TASHA/Dictated by: Patrick Bacon MD @ 03/13/2023 8:40:00 AM (Electronically Signed)
== END 2023-03-12 13:31 | disposition home or self-care (01) ==
LOC: MAMMO 13:33
PROVIDERS: PCP Nurse Practitioner Family; Visit Provider Nurse Practitioner Family
DX: Z12.31 Encounter for screening mammogram for malignant neoplasm of breast (principal); Z80.3 Family history of malignant neoplasm of breast
CPT/HCPCS: 77063; 77067

== ENCOUNTER 2023-09-03 11:13 | Outpatient (CLI) | payer OTHER, SELFPAY ==
--- OUTSIDE RECORDS SUMMARY | 2023-09-04 05:08 | XMS_ITS | Encounter Summary ---
Author Name Unknown Organization [facility] Address [address] [place] [address] Care Team Providers Care Cadastral Engineer Name Role Phone Harriet Haley MD Primary Care Provider [phone] Reason for Visit * Reason Onset Date Comments Procedure 2015 LESI Encounter Details Date Type Department Care Team (Late st Contact Info) Description 2015 Telephone [facility] Pain Management [address] [place] [address] Pain Management Program, [facility] Procedure (LESI) Social History Tobacco Use Types Packs/Day Years Used Date Smoking Tobacco: Former Cigarettes Q uit: 09/15/2015 Alcohol Use Standard Drinks/Week Comments Yes 0 (1 standard drink = 0.6 oz pur e alcohol) SMALL Sex and Gender Information Value Date Recorded Sex Assigned at Not on file Gender Identity Not on file Sexual Orientation Not on file documented as of this encounter Miscellaneous Notes * Telephone Encounter - Babita Rosado - 10/29/2015 9:32 AM CDT Called pt to schedule LESI, lvm. Babita Rosado [facility] [place] * Telephone Encounter - Babita Rosado - 2015 8:37 AM CDT Called pt to schedule LESI, LVMHeraclio Rosado [facility] [place] * Telephone Encounter - Alfreda Segura - 2015 8:14 AM CDT Order received from [facility] for TF LESI. Order scanned to telephone encounter, routing to scheduling coordinators to contact patient. Alfreda Segura [facility] documented in this encounter Plan of Treatment Not on file documented as of this encounter Visit Diagnoses Not on filedocumented in this encounter Care Teams Cadastral Engineer Relationship Specialty Start Date End Date Harriet Haley MD [address] [address] PCP - General Physician Litigation Docket Manager 10/01/15 documented as of this encounter
--- OUTSIDE RECORDS SUMMARY | 2023-09-04 05:08 | XMS_ITS | Clinical Summary ---
Author Name Unknown Organization [facility] Address [address] [place] [address] Care Team Providers Care Digital Engineer Name Role Phone Needs Pcp, Assignment Primary Care Provider [phone] Source Comments You are receiving this document as you are listed as the primary care provider,follow-up provider, or the patient has been referred to you for consultation.This is in compliance with the Medicare andReg[facility] Hospital [facility] Westcaid EHR Incentive Program,which states Providers who transition their patient to another setting of careor provider of care or refers their patient to another provider of care shouldprovide summary care record for each transition of care or referral. [employer] Information TechnologyGuadalupe County HospitalWedding Reality Allergies Active Allergy Reactions Criticality Noted Date Comments Amoxicillin-Pot Clavulanate Rash Low 05/08/20 16 Cefuroxime Rash Low 05/08/2016 Nitrofurantoin Rash Low 05/08/2016 Pruritic rash Sulfamethoxazole-Trimethoprim Nausea 2015 Stomach pain and nausea Medications Medication Sig Dispensed Refills Start Date End Date Status Levothyroxine Sodium Take 88 mcg by mouth. 0 Active ARIPiprazole (ABILIFY) 2 MG tablet Take 2 mg by mouth daily. 0 10/15/2021 Active busPIRone (BUSPAR) 15 MG tablet Take 15 mg by mouth two times a day. 0 2021 Active clonazePAM (KLONOPIN) 0.5 MG tablet Take by mouth. 0 10/15/2021 Active desvenlafaxine (PRISTIQ) 100 MG 24 hour release tablet Take 100 mg by mouth daily. 0 10/15/2021 Active gabapentin (NEURONTIN) 300 MG capsule Take 300 mg by mouth three times a day. 0 10/19/2021 Active hydroCHLOROthiazide (ORETIC) 25 MG tablet Take 25 mg by mouth daily. 0 09/20/2021 Active levothyroxine (SYNTHROID) 112 MCG tablet Take 112 mcg by mouth daily. 0 10/03/2021 Active rosuvastatin (CRESTOR) 20 MG tablet Take 20 mg by mouth daily at bedtime. 0 09/20/2021 Active BELSOMRA 10 MG TABS Take 1 Tablet by mouth at bedtime as needed. 0 10/07/2021 Active verapamil (CALAN SR) 120 MG controlled release tablet Take 120 mg by mouth daily. 0 09/23/2021 Active cetirizine (ZYRTEC) 10 MG tablet Take 1 Tablet (10 mg) by mouth daily. 30 Tablet 0 11/12/2021 Active hydrOXYzine HCl (ATARAX) 25 MG tablet 1-2 tabs up tot every 6-8 hours as needed, makes you tired 30 Tablet 0 11/12/2021 Active camphor-menthol (SARNA) 0.5-0.5 % lotion Apply to areas of rash on body and extremities 222 mL 0 11/12/2021 Active Active Problems No known active problems Encounters Date Type Department Care Team Description 07/09/2023 siddhartha Nickerson [phone] from Last 3 Months Social History Tobacco Use Types Packs/Day Years Used Date Smoking Tobacco: Never Smokeless Tobacco: Never Sex and Gender Information Value Date Recorded Sex Assigned at Not on file Gender Identity Not on file Sexual Orientation Not on file Last Filed Vital Signs Vital Sign Reading Time Taken Comments Blood Pressure 137/86 11/12/2021 12:04 PM CDT Pulse 96 11/12/2021 12:04 PM CDT Temperature 36.7 ??C (98.1 ??F) 11/12/2021 12:04 PM C DT Respiratory Rate 18 11/12/2021 12:04 PM CDT Oxygen Saturation 98% 11/12/2021 12:04 PM CDT Inhaled Oxygen Concentration - - Weight - - Height - - Body Mass Index - - Plan of Treatment Health Maintenance Due Date Last Done Comments Cervical Cancer Screening Due 1965 Colon Cancer Screening Plan Due 1965 Hep C Screening (Preventive Services) 1965 HepB (1) 1965 Mammogram 1965 COVID-19 Vaccine (#1) 04/27/1966 HIV Screening (Preventive Services) 1981 Adult Preventive Visit 10/26/1983 Cholesterol 2010 Zoster/Shingles (1 of 2) 10/26/2015 Influenza (#1) 2023 04/30/2022, 04/11, 05/07/2020, Additional history exists DTaP/Tdap/Td (2 - Tdap) 10/09/2024 10/09/2014 Pneumococcal Aged Out 07/20/2013, 07/10, 01/01/2011 No longer eligible based on patient's age to complete this topic HepA Aged Out No longer eligi ble based on patient's age to complete this topic Hib Aged Out No longer eligi ble based on patient's age to complete this topic IPV (Polio) Aged Out No longer eligi ble based on patient's age to complete this topic MCV4 Aged Out No longer eligi ble based on patient's age to complete this topic Care Teams Digital Engineer Relationship Specialty Start Date End Date Needs Pcp, Re[place], [place] [address] PCP - General 11/15/21
--- OUTSIDE RECORDS SUMMARY | 2023-09-04 05:08 | XMS_ITS | Clinical Summary ---
Author Name Unknown Organization [facility] Address [address] [place] [address] Care Team Providers Care Licensed Nuclear Control Room Operator Name Role Phone Harriet Haley MD Primary Care Provider [phone] [phone] Allergies Active Allergy Reactions Criticality Noted Date Comments Amoxicillin-Pot Clavulanate Rash Low 05/08/20 16 Cefuroxime Rash Low 05/08/2016 Nitrofurantoin Rash Low 05/08/2016 Pruritic rash No Known Allergies 09/21/2002 Sulfamethoxazole-Trimethoprim Nausea 2015 Stomach pain and nausea Medications Medication Sig Dispensed Refills Start Date End Date Status DULoxetine HCl (CYMBALTA PO) Take 120 mg by mouth every evening 0 Active LEVOTHYROXINE SODIUM PO Take 88 mcg by mouth daily 0 Active Verapamil HCl (CALAN SR PO) Take 120 mg by mouth every morning 0 Active acetaminophen (TYLENOL) 500 MG tabletIndications: Acute low back pain Take 2 tablets (1,000 mg) by mouth 3 times daily For one week then change to as needed. Do not take other tylenol/acetaminoph en medications. 0 10/03/2015 Active Additional Information Patient not taking.Reported on 11/13/2017 ibuprofen (ADVIL,MOTRIN) 600 MG tabletIndications: Acute low back pain Take 1 tablet (600 mg) by mouth every 8 hours as needed for other (mild pain) 120 tablet 0 10/03/2015 Active order for DMEIndications:Acu te low back pain Equipment being ordered: Cane (E0100) Treatment Diagnosis: Acute back pain 1 Device 0 10/03/2015 Active oxyCODONE (ROXICODONE) 5 MG immediate release tablet Take 1 tablet (5 mg) by mouth every 4 hours as needed for pain 12 tablet 0 11/13/2015 Active order for DMEIndications:Lef t foot pain Equipment being ordered: The following items were dispensed: Roll-a-bout for possible stress fracture/reaction of the left foot. 1 Device 0 05/09/2016 Active ARIPiprazole (ABILIFY) 2 MG tablet Take 1 tablet (2 mg) by mouth At Bedtime 30 tablet 0 06/26/2016 Active ASPIRIN NOT PRESCRIBED (INTENTIONAL) continuous prn for other Antiplatelet medication not prescribed intentionally due to {CHOOSE REASON BEFORE SIGNING!!!:134487} 0 Active order for DMEIndications:Karlie n of toe of left foot Equipment being ordered: crutches 1 Units 0 07/06/2016 Active traMADol (ULTRAM) 50 MG tabletIndications: Stress fracture of right foot with routine healing, subsequent encounter Take 1 tablet (50 mg) by mouth nightly as needed for moderate pain 10 tablet 0 07/10/2016 Active predniSONE (DELTASONE) 20 MG tabletIndications: Throat pain Take 1 tablet (20 mg) by mouth daily 5 tablet 0 04/26/2017 Active Additional Information Patient not taking.Reported on 11/13/2017 ciprofloxacin (CIPRO) 250 MG tabletIndications: Urinary tract infection without hematuria, site unspecified Take 1 tablet (250 mg) by mouth 2 times daily 6 tablet 0 11/13/2017 Active meclizine (ANTIVERT) 25 MG tablet Take 1 tablet (25 mg) by mouth 3 times daily as needed for dizziness 30 tablet 0 06/28/2022 Active diazepam (VALIUM) 2 MG tablet Take 1 tablet (2 mg) by mouth every 12 hours as needed (vertigo) 2 tablet 0 06/28/2022 Active Active Problems Patient Care Coordination No te Formatting of this note migh t be different from the original. [email or web address] Problem Noted Date Diagnosed Date Chronic bilateral low back pain with left-sided sciatica 03/26/2016 Low back pain potentially associated with radicu lopathy 10/01/2015 Acute low back pain 10/01/2015 Immunizations Name Administration Dates Next Due Mantoux Tuberculin Skin Test 04/18/2002 Family History Medical History Relation Comments Diabetes Father HYPERTENSION ALS O Hypertension Mother THYROID ALSO Relation Status Comments Father Mother Social History Tobacco Use Types Packs/Day Years Used Date Smoking Tobacco: Former Cigarettes Q uit: 09/15/2015 Smokeless Tobacco: Never Alcohol Use Standard Drinks/Week Comments Yes 0 (1 standard drink = 0.6 oz pur e alcohol) SMALL PHQ-2 Answer Date Recorded PHQ-2 Score 2 08/17/2018 Adolescent Education Answer Date Record ed Getting School Help Needed Not on file 05/09 Sex and Gender Information Value Date Recorded Sex Assigned at Not on file Gender Identity Not on file Sexual Orientation Not on file Last Filed Vital Signs Vital Sign Reading Time Taken Comments Blood Pressure 133/88 06/28/2022 9:07 PM LOADER MAGAZINE GRINDER Pulse 91 06/28/2022 9:07 PM LOADER MAGAZINE GRINDER Temperature 36.7 ??C (98 ??F) 06/28/2022 9:07 PM LOADER MAGAZINE GRINDER Respiratory Rate 16 06/28/2022 9:07 PM LOADER MAGAZINE GRINDER Oxygen Saturation 95% 06/28/2022 9:07 PM LOADER MAGAZINE GRINDER Inhaled Oxygen Concentration - - Weight 99.8 kg (220 lb) 09/23/2017 6:47 PM LOADER MAGAZINE GRINDER Height 172.7 cm (5' 8) 09/28/2016 2:53 PM LOADER MAGAZINE GRINDER Body Mass Index 33.45 09/28/2016 2:53 PM LOADER MAGAZINE GRINDER Plan of Treatment Health Maintenance Due Date Last Done Comments ADVANCE CARE PLANNING 1965 ANNUAL REVIEW OF HM ORDERS 1965 CT COLONOGRAPHY 1965 FIT 1965 FLEX SIG 1965 HEPATITIS B IMMUNIZATION (1 of 3 - 3-dose series) 1965 MAMMO SCREENING 1965 YEARLY PREVENTIVE VISIT 1965 sDNA (Cologuard) 1965 COLONOSCOPY 10/26/1975 COLORECTAL CANCER SCREENING 10/26/1975 HIV SCREENING 1980 HEPATITIS C SCREENING 10/26/1983 PAP 1986 TSH W/FREE T4 REFLEX 03/11/2005 03/11/2004, 08/24/2003, 06/29/2003 LIPID 2010 LUNG CANCER SCREENING 10/26/2015 ZOSTER IMMUNIZATION (1 of 2) 10/26/2015 COVID-19 Vaccine ( season) 2023 05/14/2021, 08/29/2020, 08/08/2020 INFLUENZA VACCINE (#1) 2023 2, 04/29/2021, 05/07/2020, Additional history exists URINE DRUG SCREEN 06/28/2023 06/28/2022 PHQ-2 (once per calendar year) 2023 10/10/2015 DTAP/TDAP/TD IMMUNIZATION (2 - Td or Tdap) 10/09/2024 10/09/2014, 09/13/2004 Pneumococcal Vaccine: Pediatrics (0 to 5 Years) and At-Risk Patients (6 to 64 Years) Aged Out 07/20/2013, 07/20/2013, 01/01/2011 No longer eligible based on patient's age to complete this topic HPV IMMUNIZATION Aged Out No longer e ligible based on patient's age to complete this topic IPV IMMUNIZATION Aged Out No longer e ligible based on patient's age to complete this topic MENINGITIS IMMUNIZATION Aged Out No l onger eligible based on patient's age to complete this topic RSV MONOCLONAL ANTIBODY Aged Out No l onger eligible based on patient's age to complete this topic Medical Devices Implanted Type Area Burglar Alarm Installer Device Identifier Shelf Expiration Date Model / Serial / Lot Sling Sparc Urinary System [id number] Implanted:Qty : 1 on 11/05/2015 Stent N/A: Bladder [employer]ORA 06/15/2018 [id number] / / [id number] Kit Sling Lynx - [id number] Implanted:Qty : 1 on 02/20/2016 Stent N/A: Bladder [employer] 11/25/2018 [id number] / / [id number] C4-C5 Fusion Explanted Type Area Burglar Alarm Installer Device Identifier Shelf Expiration Date Model / Serial / Lot Sparc Sling Explanted:2015 (Quantity not on file) Advance Directives For more information, please contact: [phone] Latest Code Status on File Code Status Date Activated Date Inactivated Comments Full Code 10/03/2015 3:40 PM 06/28/2022 2:10 PM Code Status History Code Status Date Activated Date Inactivated Comments Full Code 10/01/2015 6:21 PM 10/03/2015 3:40 PM Care Teams Licensed Nuclear Control Room Operator Relationship Specialty Start Date End Date Harriet Haley MD [address] [facility] [address] [place] [address] PCP - General Physician Dag Coater 10/01/15
--- OUTSIDE RECORDS SUMMARY | 2023-09-04 05:08 | XMS_ITS | Referral Summary ---
Author Name Unknown Organization [facility] Address [address] [place] [address] Care Team Providers Care Thread Tool Grinder Set Up Operator Name Role Phone Harriet Haley MD Primary Care Provider [phone] Allergies Active Allergy Reactions Criticality Noted Date [...] prescribed intentionally due to {CHOOSE REASON BEFORE SIGNING!!!:043485} 0 Active order for DMEIndications:Karlie n of [...] migh t be different from the original. [email or web address] Problem Noted Date Diagnosed Date Chronic bilateral low back pain with left-sided sciatica 03/26/2016 Low back pain potentially associated with radicu lopathy 10/01/2015 Acute low back pain 10/01/2015 Immunizations Name Administration Dates Next Due Mantoux Tuberculin Skin Test 04/18/2002 Social History Tobacco Use Types Packs/Day Years [...] Comments Blood Pressure 133/88 06/28/2022 9:07 PM PROSTHETICS LAB TECHNICIAN Pulse 91 06/28/2022 9:07 PM PROSTHETICS LAB TECHNICIAN Temperature 36.7 ??C (98 ??F) 06/28/2022 9:07 PM PROSTHETICS LAB TECHNICIAN Respiratory Rate 16 06/28/2022 9:07 PM PROSTHETICS LAB TECHNICIAN Oxygen Saturation 95% 06/28/2022 9:07 PM PROSTHETICS LAB TECHNICIAN Inhaled Oxygen Concentration - - Weight 99.8 kg (220 lb) 09/23/2017 6:47 PM PROSTHETICS LAB TECHNICIAN Height 172.7 cm (5' 8) 09/28/2016 2:53 PM PROSTHETICS LAB TECHNICIAN Body Mass Index 33.45 09/28/2016 2:53 PM PROSTHETICS LAB TECHNICIAN Plan of Treatment Not on file Medical Devices Implanted Type Area Converting Supervisor Device Identifier Shelf Expiration Date Model / Serial / Lot Sling Sparc Urinary System [id number] Implanted:Qty : 1 on 11/05/2015 Stent N/A: Bladder [employer]ORA 06/15/2018 [id number] / / [id number] Kit Sling Lynx - [id number] Implanted:Qty : 1 on 02/20/2016 Stent N/A: Bladder [employer] 11/25/2018 [id number] / / [id number] C4-C5 Fusion Explanted Type Area Converting Supervisor Device Identifier Shelf Expiration Date Model / Serial / Lot Sparc Sling Explanted:2015 (Quantity not on file) Advance Directives For more information, please contact: [phone] Latest Code Status on File Code Status Date Activated Date Inactivated Comments Full Code 10/03/2015 3:40 PM 06/28/2022 2:10 PM Code Status History Code Status Date Activated Date Inactivated Comments Full Code 10/01/2015 6:21 PM 10/03/2015 3:40 PM Care Teams Thread Tool Grinder Set Up Operator Relationship Specialty Start Date End Date Harriet Haley MD [address] [place] [address] [place] [address] PCP - General Physician Inspector Firearms 10/01/15
--- OUTSIDE RECORDS SUMMARY | 2023-09-04 05:08 | XMS_ITS | Encounter Summary ---
Author Name Unknown Organization [facility] Address [address] [place] [address] Care Team Providers Care Diabetes Solutions Specialist Name Role Phone Needs Pcp, Assignment Primary Care Provider [phone] Reason for Visit * Reason Comments Clinician Finder Team Encounter Details Date Type Department Care Team Description 12/16/[address] [facility] [address] Family Medicine [address] [facility] [place]. [place], [place] [address] Needs Pcp, Re[place], [place] [id number] Clinician Finder Team Social History Tobacco Use Types Packs/Day Years [...] on filedocumented in this encounter Care Teams Diabetes Solutions Specialist Relationship Specialty Start Date End Date Needs Pcp, Reina [place], [place] [id number] PCP - General 11/15/21 documented as of this encounter
--- OUTSIDE RECORDS SUMMARY | 2023-09-04 05:08 | XMS_ITS | Encounter Summary ---
Author Name Unknown Organization [facility] Address [address] [place] [address] Care Team Providers Care Building Maintenance Mechanic Name Role Phone Needs Pcp, Assignment Primary Care Provider [phone] Reason for Visit * Reason Comments Spot, Skin Encounter Details Date Type Department Care Team Description 12/29/2022 8:15 AM CDT Office Visit [place] [address] [place] [id number] [place] [address] [place] [address] [phone] Cyst of skin (Primary Dx); Seborrheic keratosis; Neoplasm of skin (HRC) Social History Tobacco Use Types Packs/Day Years Used Date Smoking Tobacco: Never Smokeless Tobacco: Never Sex and Gender Information Value Date Recorded Sex Assigned at Not on file Gender Identity Not on file Sexual Orientation Not on file documented as of this encounter Patient Instructions * Patient Instructions* Johnny Kitchen LPN - 12/29/2022 8:15 AM CDT Care Instructions after a shave skin biopsy/removal When do I start changing the bandage on my wound site? Leave the original bandage/dressing in place for 24 to 48 hours. If you develop bleeding from the site, apply firm pressure directly over the bandage, using the heel of your hand, for [address] bandage on top of the first one - don???t keep removing and replacing dressings. NO PEEKING! Notify us if the bleeding still does not stop. How do I change the bandage on my wound? Clean the area once a day with warm soap and water. Gently pat dry the area. After the area has been cleaned and is dry, apply a small amount of petroleum jelly or Aquaphor healing ointment and apply a new bandage. We prefer that you do not use an antibacterial ointment (i.e. bacitracin, Neosporin) as many peopledevelop a hypersensitivity including a rash and even blistering related to these. Is it okay to shower after having a skin biopsy/removal? Showering is okay, but please do not soak in a bathtub, hot tub, or pool. This will slow the healing process and may create infection. When can I stop bandaging my wound? Continue the wound care process until the area is healed. Complete healing usually takes 2-4 weeks.Wounds heal best when kept moist, try not to let the area dry out. During this process you may see a white film develop over your wound and this is part of the normal healing process. Letting them open to air, drying out, and having a scab form actually causes wounds to take longer to heal. If yourskin is getting sensitive to the bandage, use gauze and paper tape. Can I exercise after having a skin biopsy/removal? Avoid exercising for 2 days. What signs or symptoms should I call the dermatology department about? Infection after a biopsy is not likely, but can occur. Mild amounts of redness, bruising, swelling,discomfort and a clear to yellowish to blood-tinged discharge are normal. Signs of Infection include: fever, increasing pain, blood blister, drainage of pus, and extreme heat from the site. Please call the clinic if you experience any of these symptoms. When will I receive my skin biopsy/removal results? Your skin biopsy specimen will be sent to our laboratory for processing. It will then be interpreted by one of our board-certified dermatopathologists. The dermatopathologist will write their findings in a pathology report. Your pathology report will be released automatically to your [employer] account. If you don't have an active [employer] account, your care team will contact you with the results of this pathology report when it is available. Typically your pathology report will be available 7 to 14 days after your biopsy or procedure. Our pathology services will be listed separately on your bill. If you have further questions about the biopsy process or if you have not received your biopsy results within 2 weeks, please call us. documented in this encounter Progress Notes * Milly Brown MD - 12/29/2022 8:15 AM CDT Images from the original note were not included. Problem List None Pertinent HPI/ROS/: Lizzie He is a 57 y.o. female who presents today for evaluation of Spot, Skin (changing mole). They are a new patient to [facility]. Dermatology Visit Questionnaire (Mychart) 12/25/2022 3:03 PM CDT - Filed by Patient What's the main skin concern you'd like to discuss during your visit? Having a few moles looked at. What prescribed or zzqk-jaf-rmhdmdb medications, supplements, ointments or creams have you used foryour skin concern in the past? None Have you seen someone for your skin concern outside of the [employer] network? No Skin concerns today: Left leg-has gotten bigger. Right shoulder-was flat but now a bump Right forearm, was bumped and got red but is now normal again. Past Medical History: No history of skin cancer. Family History: Son with melanoma Dad with unknown type of skin cancer Exam: General: Alert and oriented, no acute distress Skin: A limited examination of the right shoulder, right forearm, and left leg was performed with findings per A/P Assessment/Plan: 1. Cyst of skin Right Shoulder - Posterior Discussed etiology and expectations. Reassured this is a benign lesion. Discussed risk of inflammation with cyst rupture. Discussed treatment is with surgical excision. Patient declined treatment at this time. 2. Seborrheic keratosis Scattered dennis to brown, stuck-on, waxy papules noted Benign, reassured. 3. Neoplasm of skin (HRC) Left Lower Leg - Posterior (LATERAL) Shave removal Lesion diameter (cm): 0.6 Informed consent: discussed and consent obtained Timeout: patient name, date of , surgical site, and procedure verified Procedure prep: Patient was prepped and draped in usual sterile fashion Prep type: Isopropyl alcohol Anesthesia: the lesion was anesthetized in a standard fashion Anesthetic: 1% lidocaine plain local infiltration Instrument used: flexible razor blade Hemostasis achieved with: aluminum chloride Post-procedure details: wound care instructions given Specimen 1 - Surgical Path, Dermatology Clinical Impression: 6 MM, R/O DN Recommended shave removal. Discussed risks of scarring, infection and recurrence/need for additional treatment. Informed consent was obtained. The area was prepped with alcohol, anesthetized with lidocaine with epinephrine, and removed via shave technique. Specimen sent to pathology. Bandage applied and wound care instructions provided. RTC pending biopsy results. documented in this encounter Plan of Treatment Not on file documented as of this encounter Procedures Procedure Name Priority Date/Time Associated Diagnosis Comments EPIDERMAL / DERMAL SHAVING Routine 12/29/2022 8:23 AM CDT Neoplasm of skin (HRC) SURGICAL PATHOLOGY, DERMATOLOGY Routine 12/29/2022 8:23 AM CDT Neoplasm of skin (HRC) documented in this encounter Results * Shave removal (12/29/2022 8:23 AM CDT) Narrative EXTERNAL RESULTS - 12/29/2022 8:23 AM CDT Lesion diameter (cm): ??0.6 Informed consent: discussed and consent obtained ?? Timeout: patient name, date of , surgical site, and procedure verified ?? Procedure prep: ??Patient was prepped and draped in usual sterile fashion Prep type: ??Isopropyl alcohol Anesthesia: the lesion was anesthetized in a standard fashion ?? Anesthetic: ??1% lidocaine plain local infiltration Instrument used: flexible razor blade ?? Hemostasis achieved with: aluminum chloride ?? Post-procedure details: wound care instructions given ?? Milly Brown MD DERM PROCEDURE ORD ERABLES EXTERNAL RESULTS * Surgical Path, Dermatology (12/29/2022 8:23 AM CDT) Case Report Surgical Pathology Report ? Case: [id number] ? Authorizing Provider: ??Milly Brown MD ?Collected: ? 12/29/2022 0823 ? Ordering Location: ? [facility] 3800 ? Received: ?12/29/2022 1018 ? Dermatology ? Pathologist: ? Chad Piedra MD ? Specimen: ?Skin, Left Lower Leg - Posterior (LATERAL) ? 12/31/2022 4:35 PM T [facility] 3800 DERMATOLOGY FINAL DIAGNOSIS A. 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 COMMENT: The junctional atypia apparent in this compound congenital nevus is analogous to that in a moderately atypical dysplastic nevus. The junctional portion of the lesion appears to be completely removed. The congenital dermal component extends to the deep tissue margin. If a pigmented lesion persists or recurs at this site, complete removal is advised. 12/31/2022 4:35 PM [facility] 3800 DERMATOLOGY Clinical Information Clinical Impression: 6 MM, R/O DN 12/31/2022 4:35 PM [place] [id number] DERMATOLOGY Microscopic Description Microscopic examination is performed. 12/31/2022 4:35 PM [place] [address] DERMATOLOGY Technical Information A portion of the technical [place] [address]. The professional interpretation was performed at [facility]. 12/31/2022 4:35 PM [place] [address] DERMATOLOGY Gross Description A: Received in formalin, labeled with the patient's name and Skin, Left Lower Leg - Posterior (LATERAL) is a 8 x 8 x 1 mm shave biopsy of skin. The specimen is marked with green ink, trisected, and submitted entirely in one cassette. TV 12/31/2022 4:35 PM [facility] 3800 DERMATOLOGY Embedded Images 12/31/2022 4:35 PM [place] [address] DERMATOLOGY Skin (Skin) 12/29/2022 8:23 AM CDT 12/29/2022 10:18 AM CDT Comment:Clinical Impression: 6 MM, R/O DN Milly Brown MD LAB PATHOLOGY [facility] [address] documented in this encounter Visit Diagnoses Diagnosis Cyst of skin- Primary Sebaceous cyst Seborrheic keratosis Other seborrheic keratosis Neoplasm of skin (HRC) Neoplasm of unspecified nature of bone, soft tissue, and skin documented in this encounter Care Teams Building Maintenance Mechanic Relationship Specialty Start Date End Date Needs Pcp, [place] [address] PCP - General 11/15/21 documented as of this encounter
--- OUTSIDE RECORDS SUMMARY | 2023-09-04 05:08 | XMS_ITS | Encounter Summary ---
Author Name Unknown Organization [facility] Address [address] [place] [address] Care Team Providers Care Supervisor Asbestos Removal Name Role Phone Amor Montgomery MD Primary Care Provider [phone]- [phone] Nissa Cassidy DO Primary Care Provider + Harriet Haley MD Primary Care Provider [phone] [phone] Encounter Details Date Type Department Care Team (Late st Contact Info) Description 01/27/[address] [place] [id number] Amor Montgomery MD [facility] [address] [place] [address] ER ENCOUNTER (Primary Dx) Social History Tobacco Use Types Packs/Day Years [...] of this encounter Visit Diagnoses Diagnosis ER ENCOUNTER- Primary documented in this encounter Care Teams Supervisor Asbestos Removal Relationship Specialty Start Date End Date Amor Montgomery MD [facility] [address] [place] [address] PCP - General 09/24/01 05/05/13 Nissa Cassidy DO [facility] [address] [place] [address] PCP - General Internal Medicine 05/06/13 09/30/15 Harriet Haley MD [address] [address] PCP - General Physician Physician Specialist 10/01/15 documented as of this encounter
--- OUTSIDE RECORDS SUMMARY | 2023-09-04 05:08 | XMS_ITS | Encounter Summary ---
Author Name Unknown Organization [facility] Address [address] [place] [address] Care Team Providers Care Hair And Makeup Designer Name Role Phone Needs Pcp, Assignment Primary Care Provider [phone] Encounter Details Date Type Department Care Team Description 12/13/2022 delfina Nickerson [phone] Social History Tobacco Use Types Packs/Day Years Used Date Smoking Tobacco: Never Smokeless Tobacco: Never Sex and Gender Information Value Date Recorded Sex Assigned at Not on file Gender Identity Not on file Sexual Orientation Not on file documented as of this encounter Progress Notes * FAMILY MEDICINEDELFINA PROVIDER - 12/13/2022 4:00 AM CDT delfina Treatment Plan Diagnosis Urinary Tract Infection Visit Date December 13, 2022 Lizzie He Date of : 65 Provider Louise Corona Nurse Practitioner Note From Provider Santosh Samuel,Your symptoms are consistent with a bladder infection. Therefore, I sent an antibiotic over to your pharmacy for treatment of this. Push fluids. Please review the attached treatment plan for additional recommendations. If you have any questions or concerns, please request a follow-up and one of our providers will get in touch with you.Louise Ocasio Treatment Plan Since you have a bacterial infection, let's try an antibiotic. I sent a prescriptionto [facility]. I've also listed a few of the best ways to soothe your discomfortand some additional self-care tips to get you on the road to feeling better.If your symptoms don't start to improve after 3 days, or if you havequestions, please select Help to Request a Follow-up andwe'll talk about your next steps for free. Order(s) fosfomycin tromethamine 3 gram packet Take 1 packet dissolved in water single dose as directed for 1 day Note: Mix with 4 ounces of cool water. Refills: None Sent To: [facility] [place], [place] [address] [place] [address] Treatment Plan Self Care Tip Topics Drink Water Avoid Caffeine Warm Packs Yeast Infection What to Expect If you follow the recommendations I made on the Treatment tab, your symptomsshould start to improvein about 3 days. If your symptoms don't start to improve after 3 days, or if you have questions, please select Help toRequest a Follow-up and we'll helpdetermine your next step for free. What to Watch Out For Give us a call if you experience: ??? High fever ??? Shaking chills ??? Worsening pain with urination ??? Severe pain in your back, abdomen or pelvis My Conditions, Orders, Allergies as of December 13, 2022 Standard condition list Acid Reflux/GERD Anxiety High Blood Pressure (Hypertension) High Cholesterol (Hyperlipidemia) Underactive Thyroid (Hypothyroid) Fibromyalgia Depression Current orders fosfomycin tromethamine (fosfomycin tromethamine) fluticasone propionate (fluticasone propionate) Crestor (rosuvastatin) buspirone (buspirone) verapamil (verapamil) levothyroxine (levothyroxine) Allergies Macrobid (nitrofurantoin monohyd/m-cryst), oral Ceftin (cefuroxime axetil), oral Bactrim (sulfamethoxazole-trimethoprim), oral Augmentin (amoxicillin-pot clavulanate), oral [employer] [facility] [employer] We are an online clinic open 02/03. If you have any questions or comments about this visit, please call or email [email or web address] documented in this encounter Plan of Treatment Not on file documented as of this encounter Visit Diagnoses Not on filedocumented in this encounter Care Teams Hair And Makeup Designer Relationship Specialty Start Date End Date Needs Pcp, [place] [address] PCP - General 11/15/21 documented as of this encounter
--- OUTSIDE RECORDS SUMMARY | 2023-09-04 05:08 | XMS_ITS | Encounter Summary ---
Author Name Unknown Organization [facility] Address [address] [place] [address] Care Team Providers Care Green Meat Grader Name Role Phone Needs Pcp, Assignment Primary Care Provider [phone] Encounter Details Date Type Department Care Team Description 07/09/2023 delfina Nickerson [phone] Social History Tobacco Use Types Packs/Day Years Used Date Smoking Tobacco: Never Smokeless Tobacco: Never Sex and Gender Information Value Date Recorded Sex Assigned at Not on file Gender Identity Not on file Sexual Orientation Not on file documented as of this encounter Progress Notes * FAMILY MEDICINEDELFINA PROVIDER - 07/09/2023 2:34 PM CST Delfina Treatment Plan Diagnosis Urinary Tract Infection Visit Date July 09, 2023 Lizize He Date of : 65 Provider Keshav Diego, Nurse Practitioner Note From Provider Raz Samuel,I?? sorry to hear that you're having symptoms of a bladder infection.'ve sent a prescription for an antibiotic to your pharmacy. Take the medication and remember to drink lots of fluids. We are here for you for any questions or concerns along the way, just submit a Follow Up Request.Feel better soon! Take care, Keshav Diego CNP Treatment Plan Because you have a bacterial infection, I sent a prescription for an antibiotic to [facility]. I also listed a few ways to soothe your discomfort and additional self-care tips to get you on the road to feeling better. If your symptoms don't start to improve after 3 days, or if you have questions, please select Help to Request a Follow-up and we'll discuss next steps. Order(s) fosfomycin tromethamine 3 gram packet Take 1 packet dissolved in water single dose as directed for 1 day Note: Mix with 4 ounces of cool water. Refills: None Sent To: [facility] [place], [place] [address] [place] [address] Treatment Plan Self Care Tip Topics Drink Water Avoid Caffeine Warm Packs Pain Relief with AZO What to Expect If you follow the recommendations I made on the Treatment tab, your symptoms should start to improve in about 3 days. If your symptoms don't start to improve after 3 days, or if you have questions, please select Help to Request a Follow- up and we'll help determine next steps. What to Watch Out For Follow-up in clinic if you experience: ??? Fever higher than 99.9 degrees ??? Shaking or chills ??? Vomiting ??? Severe pain in your back, abdomen or pelvis ??? Extreme fatigue My Conditions, Orders, Allergies as of July 09, 2023 Standard condition list Acid Reflux/GERD Anxiety High Blood Pressure (Hypertension) High Cholesterol (Hyperlipidemia) Underactive Thyroid (Hypothyroid) Fibromyalgia Depression Current orders fosfomycin tromethamine (fosfomycin tromethamine) fluticasone propionate (fluticasone propionate) Crestor (rosuvastatin) buspirone (buspirone) verapamil (verapamil) levothyroxine (levothyroxine) Allergies Macrobid (nitrofurantoin monohyd/m-cryst), oral Ceftin (cefuroxime axetil), oral Bactrim (sulfamethoxazole-trimethoprim), oral Augmentin (amoxicillin-pot clavulanate), oral [employer] [facility] [employer] We are an online clinic open 02/03. If you have any questions or comments about this visit, please call or email [email or web address]. 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
== END 2023-09-03 11:14 | disposition home or self-care (01) ==
LOC: NFLDREF 09-04 05:06
PROVIDERS: PCP Nurse Practitioner Family; Visit Provider Nurse Practitioner Family
DX: R35.0 Frequency of micturition (principal); Z83.3 Family history of diabetes mellitus; N39.0 Urinary tract infection, site not specified; E66.3 Overweight; N30.01 Acute cystitis with hematuria; R73.03 Prediabetes
CPT/HCPCS: 87086; 87186

== ENCOUNTER 2023-10-14 20:21 | Emergency (ER) | payer OTHER, SELFPAY ==
[2023-10-14 20:30] VITALS: BP 142/75; PULSE 87; RESP 18; TEMP 36.7; O2SAT 99; BMI 32.7
--- NOTE | 2023-10-14 20:43 | ED.GENADULT ---
HPI - General Adult General Chief complaint: Fall/Minor Trauma Stated complaint: Fell in parking lot-hit face-hand,knee Time Seen by Provider: 10/14/23 20:43 History of Present Illness HPI narrative: CC: Right Hand /Knee Pain, Nose Pain s/p Fall pt. fell in parking lot landed face first. right hand hyperextended. denies LOC. gcs 15. 57-year-old woman presenting to the emergency department after a fall in parking lot. Has sustained injuries to hand and face. It sounds to have been a trip and fall event just catching her foot and irregular concrete/curb. She fell on right hand; foosh-type injury. Did hit her face; just fell on her nose/forehead. No loss of consciousness. No neck or back pain. Primary discomfort is in the right hand. Some swelling in her nose. Feels shaky. Nose also hurts. Knee right-sided also little sore but she is able to ambulate without significant difficulty. Does have a history of C5 through 7? cervical fusion Related Data Home Medications Medication Instructions Recorded Confirmed aripiprazole 2 mg tablet 2 mg PO DAILY 02/20/22 10/23/23 buspirone 15 mg tablet 7.5 mg PO BID 02/20/22 10/23/23 verapamil 120 mg 24 hr 120 mg PO QDAY 02/20/22 10/23/23 capsule,extended release verapamil 240 mg tablet,extended 240 mg PO DAILY 02/20/22 10/23/23 release bupropion HCl 150 mg 24 hr tablet, 150 mg PO QAM 10/14/23 10/23/23 extended release desvenlafaxine succinate 100 mg 100 mg PO DAILY 10/14/23 10/23/23 tablet,extended release 24 hr desvenlafaxine succinate 25 mg 25 mg PO DAILY 10/14/23 10/23/23 tablet,extended release 24 hr gabapentin 400 mg capsule 400 mg PO 3XD 10/14/23 10/23/23 Previous Rx's Medication Instructions Recorded ondansetron HCl 4 mg tablet 4 mg PO BID-TID PRN nausea and 06/21/22 vomiting #10 tabs diazepam 5 mg tablet See Rx Instructions PO TID PRN 06/23/22 muscle spasm #30 tabs levothyroxine 112 mcg tablet 112 mcg PO DAILY #90 tabs 01/02/23 rosuvastatin 20 mg tablet See Rx Instructions .Route 01/02/23 .COMPLEX #90 tabs phentermine 30 mg capsule 30 mg PO QDAY #30 caps 10/27/23 Allergies Allergy/AdvReac Type Severity Reaction Status Date / Time amoxicillin [From Augmentin] Allergy Mild Hives Verified 10/23/23 14:27 clavulanic acid Allergy Mild Hives Verified 10/23/23 14:27 [From Augmentin] pneumococcal vaccine Allergy Mild Verified 10/23/23 14:27 cefuroxime Allergy Unknown Hives Verified 10/23/23 14:27 nitrofurantoin Allergy Unknown Verified 10/23/23 14:27 pregabalin Allergy Unknown Verified 10/23/23 14:27 sulfamethoxazole Allergy Unknown Verified 10/23/23 14:27 [From Sulfamethoxazole-Trimethoprim] trimethoprim Allergy Unknown Verified 10/23/23 14:27 [From Sulfamethoxazole-Trimethoprim] Review of Systems Status of ROS: Reports: 6 or more systems reviewed and unremarkable except as noted in History and below PFSH PFSH Medical History Prediabetes ?R73.03 - Prediabetes (ICD-10) Overweight ?E66.3 - Overweight (ICD-10) Urinary frequency ?R35.0 - Frequency of micturition (ICD-10) Surgical History Status post bilateral oophorectomy ?Z90.722 - Acquired absence of ovaries, bilateral (ICD-10) Status post hysterectomy ?Z90.710 - Acquired absence of both cervix and uterus (ICD-10) Status post cholecystectomy ?Z90.49 - Acquired absence of other specified parts of digestive tract (ICD-10) Status post cervical spinal fusion ?Z98.1 - Arthrodesis status (ICD-10) Status post ?Z98.891 - History of uterine scar from previous surgery (ICD-10) Status post appendectomy ?Z90.49 - Acquired absence of other specified parts of digestive tract (ICD-10) Family History Other Family history of breast cancer Family history of diabetes mellitus Social History Smoking Status: Never smoker How often do you have a drink containing alcohol: never AUDIT-C Alcohol total score: 0 Non-prescribed substance use: denies use Little interest or pleasure in doing things: several days Feeling down, depressed, or hopeless: several days Exam Narrative: Exam Narrative: Very pleasant. A little shaky. Cranial nerves 2-12 are intact. GCS of 15. Pupils are equal and brisk. She is moving her neck without significant difficulty. Postoperative scars are noted. There is light abrasion at distal nose. No active bleeding. No septal hematoma noted. Some swelling and slight leftward deviation of the nasal bridge. Quite tender to palpation here but I do not feel any crepitus. I do shift this a little rightward which does cause discomfort. Wonder if there may have been a little separation of the cartilaginous bony interface. Breathing easily. Heart in regular rate. Moving all extremities without difficulty though favoring the right hand particular. There is some tenderness to palpation over the right 3rd metacarpal. No snuffbox tenderness. No 5th finger tenderness. Able to raise her arms or shoulders without difficulty. No pain to palpation over the shoulders or clavicles. Light abrasion at the right knee. Light abrasion to base of palm. Small piece of grit that I plucked out with tweezers. Const: Vital Signs, click to edit/add: Vital Signs - 24 hr 10/14/23 20:30 Temperature 98.0 F Pulse Rate [Right Pulse Oximeter] 87 Respiratory Rate 18 Blood Pressure [Ri ght Upper Arm] 142/75 H Pulse Oximetry 99 Oxygen Delivery Me thod Room Air Documenting provider has reviewed patient's vital signs: yes Course Vital Signs Vital signs: Initial Vital Signs Temperature 98.0 F 10/14/23 20:30 Temperature Source Temporal Artery Scan 10/14/23 20:30 Pulse Rate 87 10/14/23 20:30 Respiratory Rate 18 10/14/23 20:30 Blood Pressure 142/75 H 10/14/23 20:30 Blood Pressure Mean 97 10/14/23 20:30 Blood Pressure Position Sitting 10/14/23 20:30 Pulse Oximetry 99 10/14/23 20:30 Oxygen Delivery Method Room Air 10/14/23 20:30 Vital Signs Temperature 98.0 F 10/14/23 20:30 Pulse Rate 87 03/06/24 20:30 Respiratory Rate 18 10/14/23 20:30 Blood Pressure 142/75 H 10/14/23 20:30 Pulse Oximetry 99 10/14/23 20:30 Oxygen Delivery Method Room Air 10/14/23 20:30 Temperature 98.0 F 10/14/23 23:55 Pulse Rate 79 10/14/23 23:55 Respiratory Rate 18 10/14/23 23:55 Blood Pressure 132/74 10/14/23 23:55 Pulse Oximetry 99 10/14/23 23:53 Oxygen Delivery Method Room Air 10/14/23 23:53 Medications Administered Medications: Discontinued Medications Generic Name Dose Route Start Last Admin Trade Name Annette PRN Reason Stop Dose Admin Ibuprofen 600 mg 10/14/23 21:05 10/14/23 21:19 Ibuprofen 200 Mg Tablet PO 10/14/23 21:06 600 mg ONCE ONE Administration Oxycodone/Acetaminophen 1 tab 10/14/23 21:05 10/14/23 21:20 Oxycodone/Apap 5-325 Tablet PO 10/14/23 21:06 1 tab ONCE ONE Administration Medical Decision Making MDM Narrative Medical decision making narrative: Contemplated doing nasal bone x-rays but I think given the force of this impact I think it would be prudent to scan head and facial bones with CT imaging. Will also x-ray the right hand. No other imaging or evaluation appears to be necessary. Is having enough pain though would feel would benefit from pain medication here in the emergency department. After discussion ordered for 1 tab of 5/325 Percocet accompanied with ibuprofen. On reassessment pain is definitely improved. Ms. He appears more relaxed. I do review CT imaging of head and face. I do not see an acute abnormalities. Wonder if there is a subtle crack in the nasal bones though this may be vascular channel. Radiology over-read notes no acute abnormalities either. X-ray of the right hand by my read looks to be without fracture. Radiology questioning distal tuft fracture of the right 5th finger though she is not tender here on physical exam. This is also only on one view. I think this is incidental/artifact. See patient discharge plan for further discussion Medical Records Medical records reviewed: Yes I reviewed the patient's medical records Discharge Plan Discharge Clinical Impression: Closed head injury, Contusion, Abrasion, Finger sprain Patient Disposition: Home w/ Parent or Adult Condition: Stable Additional Instructions: Would consider icing the sore areas 2-3 times daily over the next few days. Apply antibiotic ointment more to keep abrasions moist over the next 4 days or so. Can take up to 800 mg of ibuprofen per dose. Can take up to 1000 mg of acetaminophen per dose. Alternative to ibuprofen might be up to 500 mg naproxen 2 times daily. As discussed will provide you with a few tablets of [place] from [facility]. Remember that each tablet of [place] contains 325 mg of acetaminophen. Signs or symptoms of a concussion might be nausea or headache upon exertion which can also be an indication to back off that level of activity and reassess in a week.? Concussion can also be represented by smoldering nausea or smoldering headache, difficulty with concentration, mood lability, general somnolence, sense of persistent fog or dizziness/lightheadedness.? If these symptoms are becoming apparent and continuing beyond 7-10 days, be re-evaluated for further recommendations. Prescriptions: No Action aripiprazole 2 mg tablet 2 mg PO DAILY buspirone 15 mg tablet 7.5 mg PO BID verapamil 240 mg tablet extended release 240 mg PO DAILY verapamil 120 mg capsule,ext rel. pellets 24 hr 120 mg PO QDAY diazepam 5 mg tablet See Rx Instructions PO TID PRN (Reason: muscle spasm) Qty: 30 0RF Rx Instructions: 2.5-5 mg orally three times a day PRN; ondansetron HCl 4 mg tablet 4 mg PO BID-TID PRN (Reason: nausea and vomiting) Qty: 10 0RF bupropion HCl 150 mg tablet extended release 24 hr 150 mg PO QAM desvenlafaxine succinate 100 mg tablet extended release 24 hr 100 mg PO DAILY desvenlafaxine succinate 25 mg tablet extended release 24 hr 25 mg PO DAILY gabapentin 400 mg capsule 400 mg PO 3XD levothyroxine 112 mcg tablet 112 mcg PO DAILY Qty: 90 3RF rosuvastatin 20 mg tablet See Rx Instructions .ROUTE .COMPLEX Qty: 90 3RF Dose Instruction: TAKE ONE TABLET BY MOUTH AT BEDTIME Rx Instructions: TAKE ONE TABLET BY MOUTH AT BEDTIME phentermine 30 mg capsule 30 mg PO QDAY Qty: 30 0RF Rx Instructions: must administer 2 hours after breakfast Follow Up/Referrals: Maria Fernanda Yusuf EDGE BURNISHER [Primary Care Provider] - Stand Alone Forms: [facility] Info Instructions
--- NOTE | 2023-10-14 21:05 | CT_ITS ---
Patient: MARIUSZ GRIFFITHS Facility:?[facility] Patient ID:?[id number] Site Patient ID:?[id number]. Site :?1965 Study:?CT-Facial W/O-10/14/2023 9:53:51 PM Ordering Physician:GREGORY Final Report: CLINICAL HISTORY: Trauma. TECHNIQUE: Standard CT scanning of the facial bones was performed. COMPARISON: None available. FINDINGS: No acute displaced fracture of the facial bones. The bony orbits are intact. The pterygoid plates are intact. The mandible is intact. The rubin of the maxillary sinus are intact. IMPRESSION: No acute displaced fracture of the facial bones. Please note that all CT scans at this facility use dose modulation, iterative reconstruction, and/or weight-based dosing when appropriate to reduce radiation dose to as low as reasonably achievable. Dictated by Buddy Gage MD @ 10/14/2023 10:04:08 PM Signed by:?Buddy Gage MD @10/14/2023 10:04:08 PM (Electronic Signature)
--- NOTE | 2023-10-14 21:06 | CT_ITS ---
Patient: MARIUSZ GRIFFITHS Facility:?[facility] Patient ID:?[id number] Site Patient ID:?[id number]. Site :?1965 Study:?CT-Head W/O-10/14/2023 9:51:59 PM Ordering Physician:GREGORY Final Report: CLINICAL HISTORY: Trauma. TECHNIQUE: Standard helical CT image acquisition through the head was performed. COMPARISON: None available. FINDINGS: No CT evidence of acute intracranial hemorrhage, extra-axial collection, mass effect or midline shift. Michel-white matter differentiation is preserved. No displaced calvarial fracture. The orbits are unremarkable. The paranasal sinuses and mastoid air cells are well aerated. IMPRESSION: No CT evidence of acute intracranial abnormality or closed head injury. Please note that all CT scans at this facility use dose modulation, iterative reconstruction, and/or weight-based dosing when appropriate to reduce radiation dose to as low as reasonably achievable. Dictated by Buddy Gage MD @ 10/14/2023 10:02:14 PM Signed by:?Buddy Gage MD @10/14/2023 10:02:14 PM (Electronic Signature)
--- NOTE | 2023-10-14 21:07 | XR_ITS ---
Patient: MARIUSZ GRIFFITHS Facility:?[facility] Patient ID:?[id number] Site Patient ID:?[id number]. Site :?1965 Study:?XRay-Extremity Right HAND-10/14/2023 9:49:40 PM Ordering Physician:GREGORY Final Report: INDICATION: Right hand pain, following fall and hyperextension, injury TECHNIQUE: Hand radiograph 2 views right COMPARISON: None FINDINGS: Evaluation of the digits on the lateral examination is moderately degraded due to overlapped digit positioning. Bone: The suspected cortical disruption in the 5th distal phalangeal tuft. Joint: The carpal and metacarpal-phalangeal joints are unremarkable in appearance. The interphalangeal joints are normal in appearance. Soft tissue: Unremarkable. No radiopaque foreign bodies are seen. IMPRESSION: 1. The suspected cortical disruption in the 5th distal phalangeal tuft. Correlation with physical exam for focal tenderness in this region is recommended to exclude an acute fracture. Dictated by Jose Vaughan MD @ 10/14/2023 9:56:26 PM Dictated by: Jose Vaughan MD @ 10/14/2023 21:56:29 Signed by:?Jose Vaughan MD @10/14/2023 9:56:29 PM (Electronic Signature)
[2023-10-14] MEDS: IBUPROFEN 200 MG TABLET 600 MG PO (21:19)
[2023-10-14] MEDS: OxyCODONE/APAP 5-325 TABLET 1 TAB PO (21:20)
[2023-10-14 23:53] VITALS: BP 132/74; PULSE 79; RESP 18; TEMP 36.7; O2SAT 99
[2023-10-14 23:55] VITALS: BP 132/74; PULSE 79; RESP 18; TEMP 36.7
== END 2023-10-14 23:55 | disposition home or self-care (01) ==
PROVIDERS: Emergency Provider Family Medicine; PCP Nurse Practitioner Family
DX: S63.616A Unspecified sprain of right little finger, initial encounter (principal); W01.0XXA Fall on same level from slipping, tripping and stumbling without subsequent striking against object, initial encounter
CPT/HCPCS: 70450; 70486; 73120; 99283; 99284; A9270

== ENCOUNTER 2023-11-07 07:52 | Emergency (ER) | payer OTHER, SELFPAY ==
[2023-11-07 07:55] VITALS: BP 128/79; PULSE 72; RESP 16; TEMP 36.2; O2SAT 97; BMI 32.7
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
[2023-11-07 09:31] VITALS: BP 128/79; PULSE 72; RESP 16; TEMP 36.2
== END 2023-11-07 09:30 | disposition home or self-care (01) ==
PROVIDERS: Emergency Provider Family Medicine; PCP Nurse Practitioner Family
DX: S62.112A Displaced fracture of triquetrum [cuneiform] bone, left wrist, initial encounter for closed fracture (principal); M54.6 Pain in thoracic spine; V40.5XXA Car driver injured in collision with pedestrian or animal in traffic accident, initial encounter
CPT/HCPCS: 29125; 71046; 72128; 73110; 99284; 99285

== ENCOUNTER 2023-11-29 13:51 | Outpatient (CLI) | payer OTHER, SELFPAY ==
--- OUTSIDE RECORDS SUMMARY | 2023-11-30 07:43 | XMS_ITS | Encounter Summary ---
Author Name Unknown Organization [facility] Address [address] [place] [address] Care Team Providers Care Noc Analyst Name Role Phone Amor Montgomery MD Primary Care Provider [phone] Nissa Cassidy DO Primary Care Provider + Harriet Haley MD Primary Care Provider [phone] Encounter Details Date Type Department Care Team (Late st Contact Info) Description 01/27/[address] [place] [id number] Amor Montgomery MD [facility] [address] [place] [address] ER ENCOUNTER (Primary Dx) Social History Tobacco [...] Primary documented in this encounter Care Teams Noc Analyst Relationship Specialty Start Date End Date Amor Montgomery MD [facility] [address] [place] [id number] PCP - General 09/24/01 05/05/13 Nissa Cassidy DO [facility] [address] [place] [address] PCP - General Internal Medicine 05/06/13 09/30/15 Harriet Haley MD [address] [address] PCP - General Physician Credit Portfolio Advisor 10/01/15 documented as of this encounter
--- OUTSIDE RECORDS SUMMARY | 2023-11-30 07:43 | XMS_ITS | Encounter Summary ---
Author Name Unknown Organization [facility] Address [address] [place] [address] Care Team Providers Care Class 1 Owner Operator Name Role Phone Harriet Haley MD Primary Care Provider [phone] Reason for Visit * Reason Onset Date Comments Procedure 2015 LESI Encounter Details Date Type Department Care Team (Late st Contact Info) Description 2015 Telephone [facility] [address] [place] [address] Pain Management Program, [facility] Procedure (LESI) Social History Tobacco Use Types [...] pt to schedule LESI, lvm. Babita Rosado [employer] Tooling Engineer [facility] [place] * Telephone Encounter - Babita Rosado - 2015 8:37 AM CDT Called pt to schedule LULII, LVMHeraclio Rosado Plastics Tooling Engineer [facility] [place] * Telephone Encounter - Alfreda Segura - 2015 8:14 AM CDT Order received from [facility] for TF LESI. Order scanned to telephone encounter, routing to scheduling coordinators to contact patient. Alfreda Segura Plastics Tooling Engineer [facility] documented in this encounter Plan of Treatment Not on file documented as of this encounter Visit Diagnoses Not on filedocumented in this encounter Care Teams Class 1 Owner Operator Relationship Specialty Start Date End Date Harriet Haley MD [address] [address] PCP - General Physician Shook Splicer 10/01/15 documented as of this encounter
--- OUTSIDE RECORDS SUMMARY | 2023-11-30 07:43 | XMS_ITS | Clinical Summary ---
Author Name Unknown Organization [facility] Address [address] [place] [address] Care Team Providers Care Vocational Trainer Name Role Phone Needs Pcp, Assignment Primary Care Provider [phone] Source Comments You are receiving this document as you are listed as the primary care provider,follow-up provider, or the patient has been referred to you for consultation.This is in compliance with the Medicare and[facility] EHR Incentive Program,which states Providers who transition their patient to another setting of careor provider of care or refers their patient to another provider of care shouldprovide summary care record for each transition of care or referral. [facility] Allerg[facility] Active Allergy Reactions Criticality Noted Date Comments Amoxicillin-Pot Clavulanate Rash Low 05/08/20 16 Cefuroxime Rash Low 05/08/2016 Nitrofurantoin Rash Low 05/08/2016 Pruritic rash Sulfamethoxazole-Trimethoprim Nausea 2015 Stomach pain and nausea Medications Medication Sig Dispensed Refills Start Date End Date Status Levothyroxine Sodium Take 88 mcg by mouth. Active ARIPiprazole (ABILIFY) 2 MG tablet Take 2 mg by mouth daily. 10/15/2021 Active busPIRone (BUSPAR) 15 MG tablet Take 15 mg by mouth two times a day. 2021 Active clonazePAM (KLONOPIN) 0.5 MG tablet Take by mouth. 10/15/2021 Active desvenlafaxine (PRISTIQ) 100 MG 24 hour release tablet Take 100 mg by mouth daily. 10/15/2021 Active gabapentin (NEURONTIN) 300 MG capsule Take 300 mg by mouth three times a day. 10/19/2021 Active hydroCHLOROthiazide (ORETIC) 25 MG tablet Take 25 mg by mouth daily. 09/20/2021 Active levothyroxine (SYNTHROID) 112 MCG tablet Take 112 mcg by mouth daily. 10/03/2021 Active rosuvastatin (CRESTOR) 20 MG tablet Take 20 mg by mouth daily at bedtime. 09/20/2021 Active BELSOMRA 10 MG TABS Take 1 Tablet by mouth at bedtime as needed. 10/07/2021 Active verapamil (CALAN SR) 120 MG controlled release tablet Take 120 mg by mouth daily. 09/23/2021 Active cetirizine (ZYRTEC) 10 MG tablet Take 1 Tablet (10 mg) by mouth daily. 30 Tablet 11/12/2021 Active hydrOXYzine HCl (ATARAX) 25 MG tablet 1-2 tabs up tot every 6-8 hours as needed, makes you tired 30 Tablet 11/12/2021 Active camphor-menthol (SARNA) 0.5-0.5 % lotion Apply to areas of rash on body and extremities 222 mL 11/12/2021 Active Active Problems No known active problems Social [...] 1965 Hep C Screening (Preventive Services) 1965 Mammogram 1965 HIV Screening (Preventive Services) 1981 Adult Preventive Visit 10/26/1983 HepB (1) 1984 Cholesterol 2010 Zoster/Shingles (1 of 2) 10/26/2015 COVID-19 Vaccine ( season) 2023 05/14/2021, 08/29/2020, 08/08/2020 Influenza (#1) 2023 04/30/2022, 04/11, 05/07/2020, Additional [...] age to complete this topic Care Teams Vocational Trainer Relationship Specialty Start Date End Date Needs Pcp, [place] [address] PCP - General 11/15/21
--- OUTSIDE RECORDS SUMMARY | 2023-11-30 07:43 | XMS_ITS | Clinical Summary ---
Author Name Unknown Organization [facility] Address [address] [place] [address] Care Team Providers Care Razor Grinder Name Role Phone Harriet Haley MD Primary Care Provider [phone] -[phone] Allergies Active Allergy Reactions Criticality Noted Date Comments Amoxicillin-Pot Clavulanate Rash Low 05/08/20 16 Cefuroxime Rash Low 05/08/2016 Nitrofurantoin Rash Low 05/08/2016 Pruritic rash No Known Allergies 09/21/2002 Sulfamethoxazole-Trimethoprim Nausea 2015 Stomach pain and nausea Medications Medication Sig Dispensed Refills Start Date End Date Status DULoxetine HCl (CYMBALTA PO) Take 120 mg by mouth every evening Active LEVOTHYROXINE SODIUM PO Take 88 mcg by mouth daily Active Verapamil HCl (CALAN SR PO) Take 120 mg by mouth every morning Active acetaminophen (TYLENOL) 500 MG tabletIndications: Acute low back pain Take 2 tablets (1,000 mg) by mouth 3 times daily For one week then change to as needed. Do not take other tylenol/acetaminoph en medications. 10/03/2015 Active Additional Information Patient not taking.Reported on 11/13/2017 ibuprofen (ADVIL,MOTRIN) 600 MG tabletIndications: Acute low back pain Take 1 tablet (600 mg) by mouth every 8 hours as needed for other (mild pain) 120 tablet 10/03/2015 Active order for DMEIndications:Acu te low [...] prescribed intentionally due to {CHOOSE REASON BEFORE SIGNING!!!:018971} Active order for DMEIndications:Karlie n of toe [...] (20 mg) by mouth daily 5 tablet 04/26/2017 Active Additional Information Patient not taking.Reported on 11/13/2017 ciprofloxacin (CIPRO) 250 MG tabletIndications: Urinary tract infection without hematuria, site unspecified Take 1 tablet (250 mg) by mouth 2 times daily 6 tablet 11/13/2017 Active meclizine (ANTIVERT) 25 MG tablet Take 1 tablet (25 mg) by mouth 3 times daily as needed for dizziness 30 tablet 06/28/2022 Active diazepam (VALIUM) 2 MG tablet Take 1 tablet (2 mg) by mouth every 12 hours as needed (vertigo) 2 tablet 06/28/2022 Active Active Problems Patient Care Coordination No te Formatting of this note migh t be different from the original. [email or web address] Problem Noted Date Diagnosed Date Chronic bilateral [...] Comments Blood Pressure 133/88 06/28/2022 9:07 PM ACC[facility]IAISON Pulse 91 06/28/2022 9:07 PM ACCOUNT [facility]IAISON Temperature 36.7 ??C (98 ??F) 06/28/2022 9:07 PM [facility] Respiratory Rate 16 06/28/2022 9:07 PM [facility] Oxygen Saturation 95% 06/28/2022 9:07 PM [facility]IA[facility] Inhaled Oxygen Concentration - - Weight 99.8 kg (220 lb) 09/23/2017 6:47 PM ACCOUNT [facility]IA[facility] Height 172.7 cm (5' 8) 09/28/2016 2:53 PM [facility]IA[facility] Body Mass Index 33.45 09/28/2016 2:53 PM [facility]OUNT [facility] Plan of Treatment Health Maintenance Due Date Last Done Comments ADVANCE CARE PLANNING 1965 ANNUAL REVIEW OF HM ORDERS 1965 CT COLONOGRAPHY 1965 FIT 1965 FLEX SIG 1965 MAMMO SCREENING 1965 YEARLY PREVENTIVE VISIT 1965 sDNA (Cologuard) 1965 COLONOSCOPY 10/26/1975 COLORECTAL CANCER SCREENING 10/26/1975 HIV SCREENING 1980 HEPATITIS C SCREENING 10/26/1983 HEPATITIS B IMMUNIZATION (1 of 3 - 19+ 3-dose series) 1984 PAP 1986 TSH W/FREE T4 REFLEX 03/11/2005 03/11/2004, 08/24/2003, 06/29/2003 LIPID 2005 LUNG CANCER SCREENING 10/26/2015 ZOSTER IMMUNIZATION (1 of 2) 10/26/2015 COVID-19 Vaccine ( season) 2023 05/14/2021, 08/29/2020, 08/08/2020 INFLUENZA VACCINE (#1) 2023 2, 04/29/2021, 05/07/2020, Additional history exists URINE DRUG SCREEN 06/28/2023 06/28/2022 PHQ-2 (once per calendar year) 2023 10/10/2015 DTAP/TDAP/TD IMMUNIZATION (2 - Td or Tdap) 10/09/2024 10/09/2014, 09/13/2004 GLUCOSE 06/28/2025 06/28/2022, 06/10, 11/13/2015, Additional history exists Pneumococcal Vaccine: Pediatrics (0 to 5 Years) [...] this topic Medical Devices Implanted Type Area Partner Integration Planner Device Identifier Shelf Expiration Date Model / Serial / Lot Sling Sparc Urinary System [id number] Implanted:Qty : 1 on 11/05/2015 Stent N/A: Bladder [employer]ORA 06/15/2018 [id number] / / [id number] Kit Sling Lynx - [id number] Implanted:Qty : 1 on 02/20/2016 Stent N/A: Bladder [employer] 11/25/2018 [id number] / / [id number] C4-C5 Fusion Explanted Type Area Partner Integration Planner Device Identifier Shelf Expiration Date Model / Serial / Lot Sparc Sling Explanted:2015 (Quantity not on file) Procedures Procedure Name Priority Date/Time Associated Diagnosis Comments URINE DRUG SCREEN STAT 06/28/2022 3:5 6 PM [facility] BASIC METABOLIC PANEL STAT 06/28/2022 2:40 PM [facility] HCL TSH Routine 03/11/2004 9:36 AM CDT Hypothyroidism Nos from Last 3 Months or Most Recently Relevant to Health Maintenance Results * (ABNORMAL) Basic metabolic panel (06/28/2022 2:40 PM [facility]) Sodium 135(L) 136 - 145 mmol/L 06/28/2022 3:25 PM [facility] Potassium 3.9 3.4 - 5.3 mmol/L 06/28/2022 3:25 PM [facility] Comment:Specimen slightly he molyzed, potassium may be falsely elevated. Chloride 97(L) 98 - 107 mmol/L 06/28/2022 3:25 PM [facility] Carbon Dioxide (CO2) 28 22 - 29 mmol/L 06/28/2022 3:25 PM [facility] Anion Gap 10 7 - 15 mmol/L 06/28/2022 3:25 PM [facility] Urea Nitrogen 16.1 6.0 - 20.0 mg/dL 06/28/2022 3:25 PM [facility] Creatinine 0.96(H) 0.51 - 0.95 mg/dL 06/28/2022 3:25 PM [facility] Calcium 9.4 8.6 - 10.0 mg/dL 06/28/2022 3:25 PM [facility] Glucose 93 70 - 99 mg/dL 06/28/2022 3:25 PM [facility] GFR Estimate 69 >60 mL/min/1.7 3m2 06/28/2022 3:25 PM [facility] Comment:Effective July 112020 eGFRcr in adults is calculated using the 2020 CKD-EPI creatinine equation which includes age and gender (Heather et al., NEJ, DOI: 10.1056/GHBMbj9864458) Blood STRUCTURE OF RIGHT UPPER LIMB / Unknown Venipuncture / Unknown 06/28/2022 2:40 PM [facility] 06/28/2022 2:52 PM [facility] Pastor Marino MD LAB - BLO OD ORDERABLES LABORATORY [facility] Acute Care Lab [address] [facility] Lab (1st floor, no room number) [place] [address], [facility] [phone] * TSH- (03/11/2004 9:36 AM CDT) TSH 4.10 0.4 - 5.0 mU/L [facility] 03/11/2004 9:36 AM CDT 03/11/2004 9:41 AM CDT Amor Montgomery MD LABORATORY [facility] from Last 3 Months or Most Recently Relevant to Health Maintenance Advance Directives For more information, please contact: [phone] * Full Code (Latest Code Status on File) Date Activated Date Inactivated Comments 10/03/2015 3:40 PM 06/28/2022 2:10 PM * Full Code Date Activated Date Inactivated Comments 10/01/2015 6:21 PM 10/03/2015 3:40 PM Care Teams Razor Grinder Relationship Specialty Start Date End Date Harriet Hlaey MD [address] [facility] [address] [place] [address] PCP - General Physician Drilling Inspector 10/01/15
--- OUTSIDE RECORDS SUMMARY | 2023-11-30 07:43 | XMS_ITS | Referral Summary ---
Author Name Unknown Organization [facility] Address [address] [place] [address] Care Team Providers Care Automatic Beam Warper Tender Name Role Phone Harriet Haley MD Primary Care Provider +1 [phone] Allergies Active Allergy Reactions Criticality Noted Date [...] prescribed intentionally due to {CHOOSE REASON BEFORE SIGNING!!!:526465} Active order for DMEIndications:Karlie n of toe [...] migh t be different from the original. [email or web address] Problem Noted Date Diagnosed Date Chronic bilateral [...] Comments Blood Pressure 133/88 06/28/2022 9:07 PM [facility] Pulse 91 06/28/2022 9:07 PM [facility] Temperature 36.7 ??C (98 ??F) 06/28/2022 9:07 PM [facility] Respiratory Rate 16 06/28/2022 9:07 PM [facility] Oxygen Saturation 95% 06/28/2022 9:07 PM [facility] Inhaled Oxygen Concentration - - Weight 99.8 kg (220 lb) 09/23/2017 6:47 PM [facility] Height 172.7 cm (5' 8) 09/28/2016 2:53 PM [facility] Body Mass Index 33.45 09/28/2016 2:53 PM [facility] Plan of Treatment Not on file Medical Devices Implanted Type Area Express Clerk Device Identifier Shelf Expiration Date Model / Serial / Lot Sling Sparc Urinary System [id number] Implanted:Qty : 1 on 11/05/2015 Stent N/A: Bladder [employer] 06/15/2018 [id number] / / [id number] Kit Sling Lynx - [id number] Implanted:Qty : 1 on 02/20/2016 Stent N/A: Bladder [employer] 11/25/2018 [id number] / / [id number] C4-C5 Fusion Explanted Type Area Express Clerk Device Identifier Shelf Expiration Date Model / Serial / Lot Sparc Sling Explanted:2015 (Quantity not on file) Procedures Procedure Name Priority Date/Time Associated Diagnosis Comments URINE DRUG SCREEN STAT 06/28/2022 3:5 6 PM [facility] BASIC METABOLIC PANEL STAT 06/28/2022 2:40 PM [facility] HCL TSH Routine 03/11/2004 9:36 AM CDT Hypothyroidism Nos from Last 3 Months or Most Recently Relevant to Health Maintenance Results * (ABNORMAL) Basic metabolic panel (06/28/2022 2:40 PM [facility]) Sodium 135(L) 136 - 145 mmol/L 06/28/2022 3:25 PM [facility] Potassium 3.9 3.4 - 5.3 mmol/L 06/28/2022 3:25 PM [facility] Comment:Specimen slightly he molyzed, potassium may be falsely elevated. Chloride 97(L) 98 - 107 mmol/L 06/28/2022 3:25 PM [facility] Carbon Dioxide (CO2) 28 22 - 29 mmol/L 06/28/2022 3:25 PM [facility] Anion Gap 10 7 - 15 mmol/L 06/28/2022 3:25 PM [facility] Urea Nitrogen 16.1 6.0 - 20.0 mg/dL 06/28/2022 3:25 PM [facility] Creatinine 0.96(H) 0.51 - 0.95 mg/dL 06/28/2022 3:25 PM [facility] Calcium 9.4 8.6 - 10.0 mg/dL 06/28/2022 3:25 PM [facility] Glucose 93 70 - 99 mg/dL 06/28/2022 3:25 PM [facility] GFR Estimate 69 >60 mL/min/1.7 3m2 06/28/2022 3:25 PM [facility] Comment:Effective July 112020 eGFRcr in adults is calculated using the 2020 CKD-EPI creatinine equation which includes age and gender (Heather et al., NEJ, DOI: 10.1056/TOUCfj1129652) Blood STRUCTURE OF RIGHT UPPER LIMB / Unknown Venipuncture / Unknown 06/28/2022 2:40 PM [facility] 06/28/2022 2:52 PM [facility] Pastor Marino MD LAB - BLO OD ORDERABLES LABORATORY [facility] [address] [facility] ([facility] floor, no room number) [place] [address], [facility] [phone] * TSH- (03/11/2004 9:36 AM CDT) TSH 4.10 0.4 - 5.0 mU/L [facility] 03/11/2004 9:36 AM CDT 03/11/2004 9:41 AM CDT Amor Montgomery MD LABORATORY [facility] from Last 3 Months or Most Recently Relevant to Health Maintenance Advance Directives For more information, please contact: [phone] * Full Code (Latest Code Status on File) Date Activated Date Inactivated Comments 10/03/2015 3:40 PM 06/28/2022 2:10 PM * Full Code Date Activated Date Inactivated Comments 10/01/2015 6:21 PM 10/03/2015 3:40 PM Care Teams Automatic Beam Warper Tender Relationship Specialty Start Date End Date Harriet Haley MD [address] [facility] [address] [place] [address] PCP - General Physician Looping Machine Operator 10/01/15
== END 2023-11-29 13:52 | disposition home or self-care (01) ==
LOC: NFLDREF 11-30 07:41
PROVIDERS: PCP Nurse Practitioner Family; Referring Provider Nurse Practitioner Family; Visit Provider Registered Nurse
DX: N39.0 Urinary tract infection, site not specified (principal)
CPT/HCPCS: 87086; 87186

== ENCOUNTER 2023-12-12 16:42 | Emergency (ER) | payer OTHER, SELFPAY ==
[2023-12-12] VITALS (8 sets, daily range): BP systolic 125–131; BP diastolic 65–77; PULSE 83–92; RESP 18; TEMP 36.4; O2SAT 90–96; BMI 31.9
[2023-12-12 17:02] LABS: Appearance Urine Slightly Cloudy (Clear); Bilirubin Urine Negative (Negative); Blood Urine Trace-intact (Negative); Color Urine Light yellow (Yellow); Glucose Urine Negative (Negative); Ketones Urine Negative (Negative); Leukocyte Esterase Urine 3+ (Negative); Nitrite Urine Negative (Negative); Protein Urine Negative (Negative); Urobilinogen Urine 0.2 (0.2-1.0)
--- NOTE | 2023-12-12 17:05 | CT_ITS ---
Patient: MARIUSZ GRIFFITHS Facility:?[facility] Patient ID:?[id number] Site Patient ID:?[id number]. Site :?1965 Study:?CT-Abdomen/Pelvis WITHOUT-12/12/2023 5:17:05 PM Ordering Physician:LISA Final Report: INDICATION: Right flank pain. COMPARISON: 06/23/2022 TECHNIQUE: CT of the abdomen and pelvis without intravenous contrast. Please note that all CT scans at this facility use dose modulation, iterative reconstruction, and/or weight-based dosing when appropriate to reduce radiation dose to as low as reasonably achievable. FINDINGS: The study is performed without intravenous contrast. This limits the sensitivity of the exam for the detection bowel pathology, focal lesions of the abdominopelvic viscera and vascular pathology including significant vascular stenosis, occlusion and dissection. ABDOMEN Liver: Normal hepatic attenuation. No suspicious focal hepatic lesion. No intrahepatic biliary ductal dilatation. Gallbladder: Cholecystectomy. Normal common duct caliber. Pancreas: Normal pancreatic attenuation. No focal lesion. Normal duct caliber. No peripancreatic inflammatory changes. Spleen: Normal splenic attenuation. No suspicious focal lesion. Adrenal Glands: Symmetrical adrenal glands. No focal lesion of significance. Kidneys: Normal bilateral renal attenuation. No suspicious focal lesion. Mild asymmetrical dilatation of the right extrarenal pelvis and right ureter to the level of the pelvic inlet without an obstructing lesion identified. No obstructing urolith is identified. Gastrointestinal tract: Normal caliber, attenuation and wall thickness of the gastrointestinal tract. No inflammatory changes. Normal mesentery. Normal appendix. Vascular: Normal outer wall to outer wall abdominal aortic caliber. Patency and luminal caliber of the abdominopelvic arterial and venous vasculature cannot be assessed on this noncontrast study. Additional findings: No incidental adenopathy. No significant ascites, free fluid or pneumoperitoneum. PELVIS No bladder lesion is identified. Hysterectomy. No abnormal free fluid. No incidental adenopathy. SKELETON AND BODY WALL No acute or suspicious incidental findings. Unchanged supraumbilical fat containing anterior midline abdominal wall hernia as follows: Supraumbilical anterior midline fat containing abdominal wall hernia measuring 2.8 cm craniocaudad with a 1.2 cm neck (5; 97). Severe disc degeneration at L3-L4. LOWER THORAX Partially included lower thoracic wall, lungs, pleural spaces and mediastinum are otherwise without significant incidental findings. IMPRESSION: Mild asymmetrical dilatation of the right extrarenal pelvis and right ureter to the level of the pelvic inlet without an obstructing urolith or other extrinsic lesion. No periureteral stranding, right renal edema or perinephric stranding to indicate obstructive uropathy. This appearance may represent normal peristalsis of the right upper urinary tract. No other findings are identified to explain the history of right flank pain. Incidental findings described in the body of the report. The study is performed without intravenous contrast. This limits the sensitivity of the exam for the detection bowel pathology, focal lesions of the abdominopelvic viscera and vascular pathology including significant vascular stenosis, occlusion and dissection. Please note that all CT scans at this facility use dose modulation, iterative reconstruction, and/or weight-based dosing when appropriate to reduce radiation dose to as low as reasonably achievable. Dictated by Federico Burgess MD @ 12/12/2023 5:46:27 PM Signed by:?Federico Burgess MD @12/12/2023 5:46:27 PM (Electronic Signature)
--- OUTSIDE RECORDS SUMMARY | 2023-12-12 17:10 | XMS_ITS | Clinical Summary ---
Author Name Unknown Organization [facility] Address [address] [place] [address] Care Team Providers Care Driller Hand Name Role Phone Harriet Haley MD Primary Care Provider [phone] [phone] Allergies Active Allergy Reactions Criticality Noted Date [...] prescribed intentionally due to {CHOOSE REASON BEFORE SIGNING!!!:085895} Active order for DMEIndications:Karlie n of toe [...] migh t be different from the original. [email or web address] Problem Noted Date Diagnosed Date Chronic bilateral [...] Comments Blood Pressure 133/88 06/28/2022 9:07 PM PROFESSOR OF ENVIRONMENTAL SCIENCE Pulse 91 06/28/2022 9:07 PM PROFESSOR OF ENVIRONMENTAL SCIENCE Temperature 36.7 ??C (98 ??F) 06/28/2022 9:07 PM PROFESSOR OF ENVIRONMENTAL SCIENCE Respiratory Rate 16 06/28/2022 9:07 PM PROFESSOR OF ENVIRONMENTAL SCIENCE Oxygen Saturation 95% 06/28/2022 9:07 PM PROFESSOR OF ENVIRONMENTAL SCIENCE Inhaled Oxygen Concentration - - Weight 99.8 kg (220 lb) 09/23/2017 6:47 PM PROFESSOR OF ENVIRONMENTAL SCIENCE Height 172.7 cm (5' 8) 09/28/2016 2:53 PM PROFESSOR OF ENVIRONMENTAL SCIENCE Body Mass Index 33.45 09/28/2016 2:53 PM PROFESSOR OF ENVIRONMENTAL SCIENCE Plan of Treatment Health Maintenance Due Date [...] this topic Medical Devices Implanted Type Area Grab Operator Device Identifier Shelf Expiration Date Model / Serial / Lot Sling Sparc Urinary System [id number] Implanted:Qty : 1 on 11/05/2015 Stent N/A: Bladder [employer] 06/15/2018 [id number] / / [id number] Kit Sling Lynx - [id number] Implanted:Qty : 1 on 02/20/2016 Stent N/A: Bladder [employer] 11/25/2018 [id number] / / [id number] C4-C5 Fusion Explanted Type Area Grab Operator Device Identifier Shelf Expiration Date Model / Serial / Lot Sparc Sling Explanted:2015 (Quantity not on file) Procedures Procedure Name Priority Date/Time Associated Diagnosis Comments URINE DRUG SCREEN STAT 06/28/2022 3:5 6 PM PROFESSOR OF ENVIRONMENTAL SCIENCE BASIC METABOLIC PANEL STAT 06/28/2022 2:40 PM PROFESSOR OF ENVIRONMENTAL SCIENCE HCL TSH Routine 03/11/2004 9:36 AM CDT Hypothyroidism Nos from Last 3 Months or Most Recently Relevant to Health Maintenance Results * (ABNORMAL) Basic metabolic panel (06/28/2022 2:40 PM PROFESSOR OF ENVIRONMENTAL SCIENCE) Sodium 135(L) 136 - 145 mmol/L 06/28/2022 3:25 PM [facility] Potassium 3.9 3.4 - 5.3 mmol/L 06/28/2022 3:25 PM [facility] Comment:Specimen slightly he molyzed, potassium may be falsely elevated. Chloride 97(L) 98 - 107 mmol/L 06/28/2022 3:25 PM [facility] Carbon Dioxide (CO2) 28 22 - 29 mmol/L 06/28/2022 3:25 PM [facility]ON[facility] Anion Gap 10 7 - 15 mmol/L 06/28/2022 3:25 PM [facility]ON[facility] Urea Nitrogen 16.1 6.0 - 20.0 mg/dL 06/28/2022 3:25 PM [facility]ON[facility] Creatinine 0.96(H) 0.51 - 0.95 mg/dL 06/28/2022 3:25 PM [facility]VIRONMENT[facility] Calcium 9.4 8.6 - 10.0 mg/dL 06/28/2022 3:25 PM [facility] Glucose 93 70 - 99 mg/dL 06/28/2022 3:25 PM [facility]ON[facility] GFR Estimate 69 >60 mL/min/1.7 3m2 06/28/2022 3:25 PM [facility] Comment:Effective July 112020 eGFRcr in adults is calculated using the 2020 CKD-EPI creatinine equation which includes age and gender (Heather et al., NEJ, DOI: 10.1056/WTJVwa4753988) Blood STRUCTURE OF RIGHT UPPER LIMB / Unknown Venipuncture / Unknown 06/28/2022 2:40 PM PROFESSOR OF ENVIRONMENTAL SCIENCE 06/28/2022 2:52 PM PROFESSOR OF ENVIRONMENTAL SCIENCE Pastor Marino MD LAB - BLO OD ORDERABLES LABORATORY [facility] Acute Care Lab [address] [facility] Lab (1st floor, no room number) [place] [address], [facility] [phone] * TSH- (03/11/2004 9:36 AM CDT) TSH 4.10 0.4 - 5.0 mU/L [facility] 03/11/2004 9:36 AM CDT 03/11/2004 9:41 AM CDT Amor Montgomery MD LABORATORY [facility] from Last 3 Months or Most Recently Relevant to Health Maintenance Advance Directives For more information, please contact: [phone] * Full Code (Latest Code Status on File) Date Activated Date Inactivated Comments 10/03/2015 3:40 PM 06/28/2022 2:10 PM * Full Code Date Activated Date Inactivated Comments 10/01/2015 6:21 PM 10/03/2015 3:40 PM Care Teams Driller Hand Relationship Specialty Start Date End Date Harriet Haley MD [address] [facility] [address] [place] [address] PCP - General Physician Senior Controls Technician 10/01/15
--- OUTSIDE RECORDS SUMMARY | 2023-12-12 17:10 | XMS_ITS | Encounter Summary ---
Author Name Unknown Organization [facility] Address [address] [place] [address] Care Team Providers Care Integrated Circuit Ic Layout Designer Name Role Phone Harriet Haley MD Primary Care Provider [phone] [phone] Reason for Visit * Reason Onset Date Comments Procedure 2015 LESI Encounter Details Date Type Department Care Team (Late st Contact Info) Description 2015 Telephone [facility] [address] [place] [address] Pain Management Program, [place] [facility] [...] pt to schedule LESI, lvm. Babita Rosado Sponge Maker [facility] [place] * Telephone Encounter - Babita Rosado - 2015 8:37 AM CDT Called pt to schedule LULII, LVMHeraclio Rosado Sponge Maker [facility] [place] * Telephone Encounter - Alfreda Segura - 2015 8:14 AM CDT Order received from [facility] for TF LESI. Order scanned to telephone encounter, routing to scheduling coordinators to contact patient. Alfreda Segura [facility] documented in this encounter Plan of Treatment Not on file documented as of this encounter Visit Diagnoses Not on filedocumented in this encounter Care Teams Integrated Circuit Ic Layout Designer Relationship Specialty Start Date End Date Harriet Haley MD [address] [address] PCP - General Physician Bonsai Tender 10/01/15 documented as of this encounter
--- OUTSIDE RECORDS SUMMARY | 2023-12-12 17:10 | XMS_ITS | Clinical Summary ---
Author Name Unknown Organization [facility] Address [address] [place] [address] Care Team Providers Care Field Automobile Adjuster Name Role Phone Needs Pcp, Assignment Primary Care Provider [phone] Source Comments You are receiving this document as you are listed as the primary care provider,follow-up provider, or the patient has been referred to you for consultation.This is in compliance with the Medicare and[employer]health[employer] EHR Incentive Program,which states Providers who transition their patient to another setting of careor provider of care or refers their patient to another provider of care shouldprovide summary care record for each transition of care or referral. [facility] Allerg[facility] Active Allergy Reactions Criticality Noted Date [...] Encounters Date Type Department Care Team Description 12/12/2023 siddhartha Nickerson [phone] from Last 3 Months Social History Tobacco [...] ( season) 2023 05/14/2021, 08/29/2020, 08/08/2020 Influenza (Season Ended) 2024 022, 04/29/2021, 05/07/2020, Additional history exists DTaP/Tdap/Td (2 - [...] age to complete this topic Care Teams Field Automobile Adjuster Relationship Specialty Start Date End Date Needs Pcp, [place], [place] [id number] PCP - General 11/15/21
--- OUTSIDE RECORDS SUMMARY | 2023-12-12 17:10 | XMS_ITS | Encounter Summary ---
Author Name Unknown Organization [facility] Address [address] [place] [address] Care Team Providers Care Jig Maker Name Role Phone Amor Montgomery MD Primary Care Provider [phone] Nissa Cassidy DO Primary Care Provider + Harriet Haley MD Primary Care Provider [phone] [phone] Encounter Details Date Type Department Care Team (Late st Contact Info) Description 01/27/[address] [place] [address] Amor Montgomery MD [facility] [address] [place] [address] ER ENCOUNTER (Primary Dx) Social History Tobacco [...] Primary documented in this encounter Care Teams Jig Maker Relationship Specialty Start Date End Date Amor Montgomery MD [place] [address] [place] [address] PCP - General 09/24/01 05/05/13 Nissa Cassidy DO [facility] [address] [place] [address] PCP - General Internal Medicine 05/06/13 09/30/15 Harriet Haley MD [address] [address] PCP - General Physician Lodge Officer 10/01/15 documented as of this encounter
--- OUTSIDE RECORDS SUMMARY | 2023-12-12 17:10 | XMS_ITS | Referral Summary ---
Author Name Unknown Organization [facility] Address [address] [place] [id number] Care Team Providers Care Shoe Cobbler Name Role Phone Harriet Haley MD Primary Care Provider [phone] Allergies Active Allergy Reactions Criticality Noted Date [...] prescribed intentionally due to {CHOOSE REASON BEFORE SIGNING!!!:589447} Active order for DMEIndications:Karlie n of toe [...] migh t be different from the original. [email or web address] Problem Noted Date Diagnosed Date Chronic bilateral [...] Comments Blood Pressure 133/88 06/28/2022 9:07 PM [facility] Pulse 91 06/28/2022 9:07 PM [facility] Temperature 36.7 ??C (98 ??F) 06/28/2022 9:07 PM [facility] Respiratory Rate 16 06/28/2022 9:07 PM [facility] Oxygen Saturation 95% 06/28/2022 9:07 PM [facility] Inhaled Oxygen Concentration - - Weight 99.8 kg (220 lb) 09/23/2017 6:47 PM [facility] Height 172.7 cm (5' 8) 09/28/2016 2:53 PM [facility] Body Mass Index 33.45 09/28/2016 2:53 PM [facility] Plan of Treatment Not on file Medical Devices Implanted Type Area Contractor Buyer Device Identifier Shelf Expiration Date Model / Serial / Lot Sling Sparc Urinary System [id number] Implanted:Qty : 1 on 11/05/2015 Stent N/A: Bladder [employer] 06/15/2018 [id number] / / [id number] Kit Sling Lynx - [id number] Implanted:Qty : 1 on 02/20/2016 Stent N/A: Bladder [employer] 11/25/2018 [id number] / / [id number] C4-C5 Fusion Explanted Type Area Contractor Buyer Device Identifier Shelf Expiration Date Model / Serial / Lot Sparc Sling Explanted:2015 (Quantity not on file) Procedures Procedure Name Priority Date/Time Associated Diagnosis Comments URINE DRUG SCREEN STAT 06/28/2022 3:5 6 PM [facility] BASIC METABOLIC PANEL STAT 06/28/2022 2:40 PM [facility] HCL TSH Routine 03/11/2004 9:36 AM CDT Hypothyroidism Nos from Last 3 Months or Most Recently Relevant to Health Maintenance Results * (ABNORMAL) Basic metabolic panel (06/28/2022 2:40 PM [facility]) Sodium 135(L) 136 - 145 mmol/L 06/28/2022 3:25 PM [facility] Potassium 3.9 3.4 - 5.3 mmol/L 06/28/2022 3:25 PM [facility] Comment:Specimen slightly he molyzed, potassium may be falsely elevated. Chloride 97(L) 98 - 107 mmol/L 06/28/2022 3:25 PM [facility] Carbon Dioxide (CO2) 28 22 - 29 mmol/L 06/28/2022 3:25 PM [facility] Anion Gap 10 7 - 15 mmol/L 06/28/2022 3:25 PM [facility] Urea Nitrogen 16.1 6.0 - 20.0 mg/dL 06/28/2022 3:25 PM [facility] Creatinine 0.96(H) 0.51 - 0.95 mg/dL 06/28/2022 3:25 PM [facility] Calcium 9.4 8.6 - 10.0 mg/dL 06/28/2022 3:25 PM [facility] Glucose 93 70 - 99 mg/dL 06/28/2022 3:25 PM [facility] GFR Estimate 69 >60 mL/min/1.7 3m2 06/28/2022 3:25 PM [facility] Comment:Effective July 112020 eGFRcr in adults is calculated using the 2020 CKD-EPI creatinine equation which includes age and gender (Heather et al., NEJ, DOI: 10.1056/WSOYcv2498253) Blood STRUCTURE OF RIGHT UPPER LIMB / Unknown Venipuncture / Unknown 06/28/2022 2:40 PM [facility] 06/28/2022 2:52 PM [facility] Pastor Marino MD LAB - BLO OD ORDERABLES LABORATORY [facility] [address] (1st floor, no room number) [place] [address], [facility] [phone] * TSH- (03/11/2004 9:36 AM CDT) TSH 4.10 0.4 - 5.0 mU/L [facility] 03/11/2004 9:36 AM CDT 03/11/2004 9:41 AM CDT Amor Montgomery MD LABORATORY [facility] from Last 3 Months or Most Recently Relevant to Health Maintenance Advance Directives For more information, please contact: [phone] * Full Code (Latest Code Status on File) Date Activated Date Inactivated Comments 10/03/2015 3:40 PM 06/28/2022 2:10 PM * Full Code Date Activated Date Inactivated Comments 10/01/2015 6:21 PM 10/03/2015 3:40 PM Care Teams Shoe Cobbler Relationship Specialty Start Date End Date Harriet Haley MD [address] [facility] [address] [place] [address] PCP - General Physician Network Support Administrator 10/01/15
--- OUTSIDE RECORDS SUMMARY | 2023-12-12 17:10 | XMS_ITS | Encounter Summary ---
Author Name Unknown Organization [facility] Address [address], [place] [address] Care Team Providers Care Drywall Mechanic Name Role Phone Needs Pcp, Assignment Primary Care Provider [phone] Encounter Details Date Type Department Care Team (Late st Contact Info) Description 12/12/2023 delfina Nickerson [phone] Social History Tobacco Use Types Packs/Day Years Used Date Smoking Tobacco: Never Smokeless Tobacco: Never Sex and Gender Information Value Date Recorded Sex Assigned at Not on file Gender Identity Not on file Sexual Orientation Not on file documented as of this encounter Progress Notes * FAMILY MEDICINEDELFINA PROVIDER - 12/12/2023 8:37 AM CDT Delfina Treatment Plan Diagnosis Recurrent Urinary Tract Infection Visit Date December 12, 2023 Lizzie He Date of : 65 Provider Felisa Saucedo, Nurse Practitioner Note From Provider Santosh Samuel,Thank you for using [facility]! I?? sorry to hear that you're having symptoms of a bladder infection.'ve sent a prescription for an antibiotic to your pharmacy, this is the same antibioticwe have prescribed for your last 2 UTIs we treated. Since this is the 3rd UTI in the last 12 monthsand less than 6 months since your last UTI your UTI is considered recurrent and I have provided youwith our recurrent UTI treatment plan. Read the full plan for more information. We are here for youfor any questions or concerns along the way, just submit a Follow Up Request. Feel better soon!Felisa Shelton, STEWARD/STEWARDESS THIRD Treatment Plan Because you have a bacterial infection in your bladder, I sent a prescription for an antibiotic to [facility] (24H[facility]). I also listed a few ways to soothe your discomfort and additional self-care tips to get you on the road to feeling better. If your symptoms don't start to improve after 3 days, or if you have questions, select Help to Request a Follow-up and we??l discuss next steps.With recurrent bladder infections, we worry about antibiotic resistance and other more serious conditions. Because of these concerns, if you develop any new infections or symptoms within the next 6 months, we advise you be seen in clinic and obtain a urine culture. If your provider doesn't recommend a long- term prevention plan, we can treat you again after 6 months. Order(s) fosfomycin tromethamine 3 gram packet Take 1 packet dissolved in water single dose as directed for 1 day Note: Mix with 4 ounces of cool water. Refills: None Sent To: [facility] ([facility]) [address] [place], [place] [id number] Treatment Plan Self Care Tip Topics What to Do For Your Next UTI Drink Water Avoid Caffeine Warm Packs Pain Relief What to Expect If you follow the recommendations I made on the Treatment tab, your symptoms should start to improve in about 3 days. If your symptoms don't start to improve after 3 days, or if you have questions, select Help to Request a Follow-up and we'll help determine next steps.With recurrent bladder infections, it's important to be seen in clinic for testing to help determine what's causing your symptoms.During the next 6 months, follow up in clinic for any bladder infections or symptoms you experience. Your primary care provider can access and formulate a plan for managing and preventing your recurrent bladder infections. To share notes from your recent [facility] visit with your provider, click Share My Records in your treatment plan. [facility] can provide diagnosis and treatment for future bladder infections provided 6 months have passed since your most recent infection. What to Watch Out For Follow-up in clinic if you experience: ??? Fever higher than 99.9 degrees ??? Shaking or chills ??? Worsening pain with urination ??? Vomiting ??? Severe pain in your back, abdomen or pelvis ??? Extreme fatigue My Conditions, Orders, Allergies as of December 12, 2023 Standard condition list Acid Reflux/GERD Anxiety High Blood Pressure (Hypertension) High Cholesterol (Hyperlipidemia) Underactive Thyroid (Hypothyroid) Fibromyalgia Depression Current orders fosfomycin tromethamine (fosfomycin tromethamine) fluticasone propionate (fluticasone propionate) Crestor (rosuvastatin) buspirone (buspirone) verapamil (verapamil) levothyroxine (levothyroxine) Allergies Macrobid (nitrofurantoin monohyd/m-cryst), oral Ceftin (cefuroxime axetil), oral Bactrim (sulfamethoxazole-trimethoprim), oral Augmentin (amoxicillin-pot clavulanate), oral [facility] Information [facility] [employer] We are an online clinic open 02/03. If you have any questions or comments about this visit, please call or email [email or web address]. documented in this encounter Plan of Treatment Not on file documented as of this encounter Visit Diagnoses Diagnosis Urinary tract infection, site not specified documented in this encounter Care Teams Drywall Mechanic Relationship Specialty Start Date End Date Needs Pcp, [place] [address] PCP - General 11/15/21 documented as of this encounter
--- NOTE | 2023-12-12 17:12 | ED.GENADULT ---
HPI - General Adult General Chief complaint: Urogenital Problems, Female Stated complaint: Bladder infection, back pain, nausea Time Seen by Provider: 12/12/23 16:50 Source: patient Mode of arrival: ambulatory Limitations: no limitations History of Present Illness HPI narrative: 58-year-old female coming in today complaining of not feeling well. Patient states that she has dysuria and nausea. She states that it feels like when she has a UTI, she has had several in the last several months. She states that she generally calls a virtual duck a gets antibiotics. However as the day has gone on she started to feel worse. She now has right-sided flank pain. Does not radiate into the groin or into the anterior abdomen. She feels more nauseated, has not vomited. Denies any fevers or chills. Denies blood in her urine. Related Data Home Medications Medication Instructions Recorded Confirmed aripiprazole 2 mg tablet 2 mg PO DAILY 02/20/22 11/29/23 buspirone 15 mg tablet 7.5 mg PO BID 02/20/22 11/29/23 verapamil 240 mg tablet,extended 240 mg PO DAILY 02/20/22 11/29/23 release bupropion HCl 150 mg 24 hr tablet, 150 mg PO QAM 10/14/23 11/29/23 extended release desvenlafaxine succinate 100 mg 100 mg PO DAILY 10/14/23 11/29/23 tablet,extended release 24 hr desvenlafaxine succinate 25 mg 25 mg PO DAILY 10/14/23 11/29/23 tablet,extended release 24 hr gabapentin 400 mg capsule 400 mg PO 3XD 10/14/23 11/29/23 Previous Rx's Medication Instructions Recorded diazepam 5 mg tablet See Rx Instructions PO TID PRN 06/23/22 muscle spasm #30 tabs levothyroxine 112 mcg tablet 112 mcg PO DAILY #90 tabs 01/02/23 rosuvastatin 20 mg tablet See Rx Instructions .Route 01/02/23 .COMPLEX #90 tabs phentermine 30 mg capsule 30 mg PO QDAY #30 caps 10/27/23 cyclobenzaprine 10 mg tablet 10 mg PO TID PRN muscle spasm #30 11/07/23 tabs ciprofloxacin HCl 500 mg tablet 500 mg PO BID 5 days #10 tabs 12/12/23 Allergies Allergy/AdvReac Type Severity Reaction Status Date / Time amoxicillin [From Augmentin] Allergy Mild Hives Verified 11/29/23 14:35 clavulanic acid Allergy Mild Hives Verified 11/29/23 14:35 [From Augmentin] pneumococcal vaccine Allergy Mild Verified 11/29/23 14:35 cefuroxime Allergy Unknown Hives Verified 11/29/23 14:35 nitrofurantoin Allergy Unknown Verified 11/29/23 14:35 pregabalin Allergy Unknown Verified 11/29/23 14:35 sulfamethoxazole Allergy Unknown Verified 11/29/23 14:35 [From Sulfamethoxazole-Trimethoprim] trimethoprim Allergy Unknown Verified 11/29/23 14:35 [From Sulfamethoxazole-Trimethoprim] Review of Systems Status of ROS: Reports: 10 or more systems reviewed and unremarkable except as noted in History and below PFSH PFS Medical History Prediabetes ?R73.03 - Prediabetes (ICD-10) Overweight ?E66.3 - Overweight (ICD-10) Urinary frequency ?R35.0 - Frequency of micturition (ICD-10) Surgical History Status post bilateral oophorectomy ?Z90.722 - Acquired absence of ovaries, bilateral (ICD-10) Status post hysterectomy ?Z90.710 - Acquired absence of both cervix and uterus (ICD-10) Status post cholecystectomy ?Z90.49 - Acquired absence of other specified parts of digestive tract (ICD-10) Status post cervical spinal fusion ?Z98.1 - Arthrodesis status (ICD-10) Status post ?Z98.891 - History of uterine scar from previous surgery (ICD-10) Status post appendectomy ?Z90.49 - Acquired absence of other specified parts of digestive tract (ICD-10) Family History Other Family history of breast cancer Family history of diabetes mellitus Social History Narrative: former smoker-quit 2020 Smoking Status: Former smoker What tobacco products do you use: cigarettes Smoking quit date/years: <= 15 years ago Do you use any of these nicotine containing products: None Second hand tobacco smoke exposure: No How often do you have a drink containing alcohol: never AUDIT-C Alcohol total score: 0 Non-prescribed substance use: denies use Little interest or pleasure in doing things: several days Feeling down, depressed, or hopeless: several days Exam Narrative: Exam Narrative: Well-nourished well-developed patient in no acute distress. Alert and oriented. Answers questions appropriately. Mood and affect are appropriate. Thoughts are goal oriented and rational. No tangential or magical thinking noted. Patient speaks in full sentences without needing to catch her breath. HEENT: Normocephalic atraumatic. Pupils are equally round reactive to light. Extraocular muscles are intact. Conjunctivae are moist without any icterus noted. Moist mucous membranes. Cardiovascular: Heart is regular rate and rhythm. Lungs: Clear to auscultation bilaterally no wheezes rhonchi or rales are appreciated. Patient takes deep breaths without any discomfort. Abdomen: Soft and nontender nondistended with normal bowel sounds. She does have right-sided CVA mild discomfort. Extremities: Bilateral lower extremities are without edema. Skin: Well perfused without any obvious rashes. Const: Vital Signs, click to edit/add: Vital Signs - 24 hr 12/12/23 16:57 Temperature 97.6 F Pulse Rate [Pulse Oximeter] 92 Blood Pressure [Ri ght Upper Arm] 131/77 Pulse Oximetry 96 Oxygen Delivery Me thod Room Air Course Course ED Course: UA grossly positive for signs of infection. Abdominal CT scan unremarkable, no stones identified. CBC: Unremarkable aside from minimally elevated white cell count at 11.82 Chemistries: Unremarkable aside from a potassium of 3.2 CRP: Normal Patient received oral Zofran and oral potassium. Vital Signs Vital signs: Initial Vital Signs Temperature 97.6 F 12/12/23 16:57 Temperature Source Temporal Artery Scan 12/12/23 16:57 Pulse Rate 92 12/12/23 16:57 Blood Pressure 131/77 12/12/23 16:57 Blood Pressure Mean 95 12/12/23 16:57 Blood Pressure Position Sitting 12/12/23 16:57 Pulse Oximetry 96 12/12/23 16:57 Oxygen Delivery Method Room Air 12/12/23 16:57 Vital Signs Temperature 97.6 F 12/12/23 16:57 Pulse Rate 92 12/12/23 16:57 Blood Pressure 131/77 12/12/23 16:57 Pulse Oximetry 96 12/12/23 16:57 Oxygen Delivery Method Room Air 12/12/23 16:57 Temperature 97.6 F 12/12/23 16:57 Pulse Rate 92 12/12/23 16:57 Blood Pressure 131/77 12/12/23 16:57 Pulse Oximetry 96 12/12/23 16:57 Oxygen Delivery Method Room Air 12/12/23 16:57 Medical Decision Making MDM Narrative Medical decision making narrative: 58-year-old female with a UTI. No evidence of pyelonephritis or renal stones. Patient has multiple antibiotic allergies. Including Augmentin, cephalosporins, nitrofurantoin, sulfa. Will treat with ciprofloxacin. Medical Records Medical records reviewed: Yes I reviewed the patient's medical records Lab Data Lab results reviewed: Yes I reviewed the patient's lab results Labs: Lab Results 12/12/23 12/12/23 Range/Units 16:49 17:05 WBC 11.82 H (4.50-11.00) K/uL RBC 4.37 (4.00-5.20) m/uL Hgb 13.1 (12.0-16.0) gm/dL Hct 38.9 (33.0-51.0) % MCV 89 (80-100) fL MCH 30 (26-34) pg MCHC 34 (32-36) gm/dL RDW Coeff of [place] 13.5 (11.5-15.5) % Plt Count 304 (140-440) K/uL Neut % (Auto) 63.4 (42.0-72.0) % Lymph % (Auto) 27.6 (20-44) % [place] % (Auto) 7.3 (0.0-11.0) % Eos % (Auto) 1.3 (0.0-7.0) % Baso % (Auto) 0.3 (0.0-3.0) % Neut # (Auto) 7.50 H (1.7-7.0) K/uL Lymph # (Auto) 3.30 H (0.90-2.90) K/uL [place] # (Auto) 0.90 (0.00-0.90) K/UL Eos # (Auto) 0.20 (0.00-0.50) K/uL Baso # (Auto) 0.00 (0.00-0.30) K/uL Abs Immat Gran (auto) 0.00 (0.00-0.30) K/uL Imm/Tot Granulo (auto) 0.1 % Sodium 137 (135-149) mmol/L Potassium 3.2 L (3.6-5.1) mmol/L Chloride 98 (96-114) mmol/L Carbon Dioxide 31 (20-32) mmol/L Anion Gap 8 (7-15) mEq/L BUN 16 (7-30) mg/dL Creatinine 1.0 (0.5-1.5) mg/dL Estimated Creat Clear 61.86 Estimated GFR 65 ml/min Glucose 106 (60-115) mg/dL Calcium 9.3 (8.4-10.6) mg/dL C-Reactive Protein 0.5 (0.5-1.0) mg/dL Urine Color Light yellow (Yellow) Urine Appearance Slightly Cloudy A (Clear) Urine pH 7.0 (5.0-8.5) Ur Specific [place] 1.010 (1.000-1.030) Urine Protein Negative (Negative) Urine Glucose (UA) Negative (Negative) Urine Ketones Negative (Negative) Urine Blood Trace-intact A (Negative) Urine Nitrite Negative (Negative) Urine Bilirubin Negative (Negative) Urine Urobilinogen 0.2 (0.2-1.0) Ur Leukocyte Esterase 3+ A (Negative) Urine RBC 2-5 A (0-2) Urine WBC 25-50 A (0-5) Ur Squamous Epith Cells None (None-Few) Urine Bacteria Few A (None) Imaging Data CT scan - abdomen: Attestation: I have reviewed the pertinent imaging results. Radiologist's impression: Study:?CT-Abdomen/Pelvis WITHOUT-12/12/2023 5:17:05 PM Ordering Physician:LISA Final Report: INDICATION: Right flank pain. COMPARISON: 06/23/2022 TECHNIQUE: CT of the abdomen and pelvis without intravenous contrast. Please note that all CT scans at this facility use dose modulation, iterative reconstruction, and/or weight-based dosing when appropriate to reduce radiation dose to as low as reasonably achievable. FINDINGS: The study is performed without intravenous contrast. This limits the sensitivity of the exam for the detection bowel pathology, focal lesions of the abdominopelvic viscera and vascular pathology including significant vascular stenosis, occlusion and dissection. ABDOMEN Liver: Normal hepatic attenuation. No suspicious focal hepatic lesion. No intrahepatic biliary ductal dilatation. Gallbladder: Cholecystectomy. Normal common duct caliber. Pancreas: Normal pancreatic attenuation. No focal lesion. Normal duct caliber. No peripancreatic inflammatory changes. Spleen: Normal splenic attenuation. No suspicious focal lesion. Adrenal Glands: Symmetrical adrenal glands. No focal lesion of significance. Kidneys: Normal bilateral renal attenuation. No suspicious focal lesion. Mild asymmetrical dilatation of the right extrarenal pelvis and right ureter to the level of the pelvic inlet without an obstructing lesion identified. No obstructing urolith is identified. Gastrointestinal tract: Normal caliber, attenuation and wall thickness of the gastrointestinal tract. No inflammatory changes. Normal mesentery. Normal appendix. Vascular: Normal outer wall to outer wall abdominal aortic caliber. Patency and luminal caliber of the abdominopelvic arterial and venous vasculature cannot be assessed on this noncontrast study. Additional findings: No incidental adenopathy. No significant ascites, free fluid or pneumoperitoneum. PELVIS No bladder lesion is identified. Hysterectomy. No abnormal free fluid. No incidental adenopathy. SKELETON AND BODY WALL No acute or suspicious incidental findings. Unchanged supraumbilical fat containing anterior midline abdominal wall hernia as follows: Supraumbilical anterior midline fat containing abdominal wall hernia measuring 2.8 cm craniocaudad with a 1.2 cm neck (5; 97). Severe disc degeneration at L3-L4. LOWER THORAX Partially included lower thoracic wall, lungs, pleural spaces and mediastinum are otherwise without significant incidental findings. IMPRESSION: Mild asymmetrical dilatation of the right extrarenal pelvis and right ureter to the level of the pelvic inlet without an obstructing urolith or other extrinsic lesion. No periureteral stranding, right renal edema or perinephric stranding to indicate obstructive uropathy. This appearance may represent normal peristalsis of the right upper urinary tract. No other findings are identified to explain the history of right flank pain. Incidental findings described in the body of the report. Discharge Plan Discharge Clinical Impression: UTI (urinary tract infection) Patient Disposition: Home, Self-Care Condition: Stable Instructions: Urinary Tract Infection in Women (DC) Additional Instructions: Take all antibiotics as prescribed. Can take your 1st dose tomorrow morning as you had a dose in the ER. Return to the ER if you feel like you symptoms are getting worse over the next 2 days including developing fevers, worsening pain in your back or abdomen, or vomiting. Prescriptions: New ciprofloxacin HCl 500 mg tablet 500 mg PO BID 5 Days Qty: 10 0RF No Action aripiprazole 2 mg tablet 2 mg PO DAILY buspirone 15 mg tablet 7.5 mg PO BID verapamil 240 mg tablet extended release 240 mg PO DAILY diazepam 5 mg tablet See Rx Instructions PO TID PRN (Reason: muscle spasm) Qty: 30 0RF Rx Instructions: 2.5-5 mg orally three times a day PRN; bupropion HCl 150 mg tablet extended release 24 hr 150 mg PO QAM desvenlafaxine succinate 100 mg tablet extended release 24 hr 100 mg PO DAILY desvenlafaxine succinate 25 mg tablet extended release 24 hr 25 mg PO DAILY gabapentin 400 mg capsule 400 mg PO 3XD cyclobenzaprine 10 mg tablet 10 mg PO TID PRN (Reason: muscle spasm) Qty: 30 0RF levothyroxine 112 mcg tablet 112 mcg PO DAILY Qty: 90 3RF rosuvastatin 20 mg tablet See Rx Instructions .ROUTE .COMPLEX Qty: 90 3RF Dose Instruction: TAKE ONE TABLET BY MOUTH AT BEDTIME Rx Instructions: TAKE ONE TABLET BY MOUTH AT BEDTIME phentermine 30 mg capsule 30 mg PO QDAY Qty: 30 0RF Rx Instructions: must administer 2 hours after breakfast Follow Up/Referrals: Maria Fernanda Yusuf CNP [Primary Care Provider] - Stand Alone Forms: MyHealth Info Instructions
[2023-12-12 17:25] LABS: Bacteria Urine Few; WBC Urine 25-50 (0-5)
[2023-12-12 17:33] LABS: Basophils Percent Auto 0.3 % (0.0-3.0); Eosinophils Percent Auto 1.3 % (0.0-7.0); Hematocrit 38.9 % (33.0-51.0); Hemoglobin* 13.1 gm/dL (12.0-16.0); Immature Granulocytes Pct Auto 0.1 %; Lymphocytes Percent Auto 27.6 % (20-44); Mean Corpuscular HGB Conc 34 gm/dL (32-36); Mean Corpuscular Hemoglobin 30 pg (26-34); Mean Corpuscular Volume 89 fL (80-100); Monocytes Percent Auto 7.3 % (0.0-11.0); Neutrophils Percent Auto 63.4 % (42.0-72.0); Platelet Count* 304 K/uL (140-440); RDW Coefficient of Variation % 13.5 % (11.5-15.5); Red Blood Count 4.37 m/uL (4.00-5.20); White Blood Count* 11.82 K/uL (4.50-11.00)
[2023-12-12 17:44] LABS: Chloride* 98 mmol/L (96-114); Sodium* 137 mmol/L (135-149)
[2023-12-12 17:45] LABS: Potassium* 3.2 mmol/L (3.6-5.1)
[2023-12-12 17:47] LABS: Est. Creatinine Clearance* 61.86; Estimated Glomerular Filt Rate 65 ml/min
[2023-12-12 17:48] LABS: Anion Gap 8 mEq/L (7-15); Blood Urea Nitrogen* 16 mg/dL (7-30); Calcium* 9.3 mg/dL (8.4-10.6); Carbon Dioxide* 31 mmol/L (20-32); Glucose* 106 mg/dL (60-115)
[2023-12-12 17:51] LABS: C Reactive Protein* 0.5 mg/dL (0.5-1.0)
[2023-12-12 17:59] LABS: Slide Review Reflex No
[2023-12-12] MEDS: ONDANSETRON ODT 4 MG TAB PO (18:19)
[2023-12-12] MEDS: POTASSIUM CHLORIDE 10 MEQ CAPSULE ER 20 MEQ PO (18:19)
[2023-12-12] MEDS: CIPROFLOXACIN 500 MG TABLET PO (18:19)
== END 2023-12-12 18:25 | disposition home or self-care (01) ==
PROVIDERS: Emergency Provider Family Medicine; PCP Nurse Practitioner Family
DX: N39.0 Urinary tract infection, site not specified (principal)
CPT/HCPCS: 36415; 74176; 80048; 81001; 85025; 86140; 87086; 99284; A9270

== ENCOUNTER 2024-02-17 22:48 | Outpatient (CLI) | payer OTHER, SELFPAY ==
--- OUTSIDE RECORDS SUMMARY | 2024-03-04 01:33 | XMS_ITS | Encounter Summary ---
Author Organization [facility] Address [address] [place] [address] Care Team Providers Care Commercial Drone Pilot Name Role Phone Needs Pcp, Assignment Primary Care Provider [phone] Encounter Details Date Type Department Care Team (Late st Contact Info) Description 02/17/2024 Telephone [facility] [address] [place], [place] [id number] Juan J Allen Social History Tobacco Use [...] on filedocumented in this encounter Care Teams Commercial Drone Pilot Relationship Specialty Start Date End Date Needs Pcp, [place] [address] PCP - General 11/15/21 documented as of this encounter
--- OUTSIDE RECORDS SUMMARY | 2024-03-04 01:33 | XMS_ITS | Encounter Summary ---
Author Organization [facility] Address [address] [place] [address] Care Team Providers Care Quality Assurance Representative Name Role Phone Harriet Haley MD Primary Care Provider [phone] Reason for Visit * Reason Onset Date Comments Procedure 2015 LESI Encounter Details Date Type Department Care Team (Late st Contact Info) Description 2015 Telephone [facility] [place] [address] [place] [address] [address] [place] [address] Pain Management Program, [facility] Procedure (LESI) Social History Tobacco Use Types [...] pt to schedule LULII, lvm. Babita Rosado Directional Drill Operator [facility] * Telephone Encounter - Babita Rosado - 2015 8:37 AM CDT Called pt to schedule LULIIMELVINMHeraclio Rosado Directional Drill Operator [facility] * Telephone Encounter - Alfreda Segura - 2015 8:14 AM CDT Order received from [facility] for TF LESI. Order scanned to telephone encounter, routing to scheduling coordinators to contact patient. Alfreda Segura Directional Drill Operator [facility] documented in this encounter Plan of Treatment Not on file documented as of this encounter Visit Diagnoses Not on filedocumented in this encounter Care Teams Quality Assurance Representative Relationship Specialty Start Date End Date Harriet Haley MD [address] [facility] [address] [place] [address] PCP - General Physician Choker Setter 10/01/15 documented as of this encounter
--- OUTSIDE RECORDS SUMMARY | 2024-03-04 01:33 | XMS_ITS | Encounter Summary ---
Author Organization [facility] Address [address] [place] [address] Care Team Providers Care Network Analyst Name Role Phone Amor Montgomery MD Primary Care Provider [phone]- [phone] Nissa Cassidy DO Primary Care Provider + Harriet Haley MD Primary Care Provider [phone] -[phone] Encounter Details Date Type Department Care Team (Late st Contact Info) Description 01/27/[address] [place] [address] Amor Montgomery MD [facility] [address] [place] [address] ER ENCOUNTER (Primary Dx) Social History Tobacco [...] Primary documented in this encounter Care Teams Network Analyst Relationship Specialty Start Date End Date Amor Montgomery MD [facility] [address] [place] [address] PCP - General 09/24/01 05/05/13 Nissa Cassidy DO [facility] [address] [place] [address] PCP - General Internal Medicine 05/06/13 09/30/15 Harriet Haley MD [address] [address] PCP - General Physician Refinery Pipeline Operator 10/01/15 documented as of this encounter
--- OUTSIDE RECORDS SUMMARY | 2024-03-04 01:33 | XMS_ITS | Clinical Summary ---
Author Organization [facility] Address [address] [place] [address] Care Team Providers Care Clinical Nursing Director Name Role Phone Needs Pcp, Assignment Primary Care Provider [phone] Source Comments You are receiving this document as you are listed as the primary care provider,follow-up provider, or the patient has been referred to you for consultation.This is in compliance with the Medicare and[facility] Hospitalcaid EHR Incentive Program,which states Providers who transition their patient to another setting of careor provider of care or refers their patient to another provider of care shouldprovide summary care record for each transition of care or referral. [facility] Allergies Active Allergy Reactions Criticality Noted Date [...] Description 02/17/2024 Nurse Triage [facility] [address] [place] [address] Needs Pcp, Assignment KNEE PAIN 02/17/2024 Telephone Careline [address] [place], [place] [phone] AlejandroSkinnymary Iraheta 12/12/2023 [facility] [phone] from Last 3 Months Immunizations Name Administration Dates Next Due Flu Vac (18-64 Yrs), Intradermal 05/07/2020 Flu Vac (3+ yrs) 04/27/2017, 3,05/10/2012,2010,06/10/2010 Fluzone Qiv Multidose Vial 0 .25 (6-35 Mos) 05/05/2018,06/15/2014 [id number] 06/28/2009 Influenza IIV4 (Quadrivalent ) 0.5mL (26796) 04/30/2022,04/29/2021,05/02/2019,2015,06/18/2015 Influenza, Unspecified Formulation 07/09/2016, PCV13 (Prevnar) 07/20/2013 PPSV23 (Pneumovax) 07/20/2013,01/01/2011 Pfizer Monovalent 12+ Purple Top 05/14/2021,08/11,08/08/2020 Tdap 10/09/2014 Social History Tobacco Use Types Packs/Day Years Used Date Smoking Tobacco: Never Smokeless Tobacco: Never PHQ-2 Answer Date Recorded PHQ-2 Score 0 02/19/2024 Financial Resource Strain Answer Date R ecorded [...] age to complete this topic Care Teams Clinical Nursing Director Relationship Specialty Start Date End Date Needs Pcp, [place] [address] PCP - General 11/15/21
--- OUTSIDE RECORDS SUMMARY | 2024-03-04 01:33 | XMS_ITS | Encounter Summary ---
Author Organization [facility] Address [address], [place] [address] Care Team Providers Care Waste Recycler Name Role Phone Needs Pcp, Assignment Primary Care Provider [phone] Reason for Visit * Reason Comments KNEE PAIN Encounter Details Date Type Department Care Team (Late st Contact Info) Description 02/17/2024 Nurse Triage [facility] [address] [place], [place] [phone] Needs Pcp, [place] [address] KNEE PAIN Social History Tobacco Use Types [...] hours of pain medicine Protocols used: Knee [id number]-AY documented in this encounter Plan of Treatment Not on file documented as of this encounter Visit Diagnoses Not on filedocumented in this encounter Care Teams Waste Recycler Relationship Specialty Start Date End Date Needs Pcp, [place] [address] PCP - General 11/15/21 documented as of this encounter
--- OUTSIDE RECORDS SUMMARY | 2024-03-04 01:33 | XMS_ITS | Encounter Summary ---
Author Organization [email or web address] Address [address] [address] Care Team Providers Care Credentialing Manager Name Role Phone Needs Pcp, Assignment Primary Care Provider [phone] Encounter Details Date Type Department Care Team (Late st Contact Info) Description 12/12/2023 delfina Nickerson [phone] Social History Tobacco Use Types Packs/Day Years [...] From Provider Santosh Samuel,Thank you for using [email or web address]! I?? sorry to hear that you're having [...] Follow Up Request. Feel better soon!Felisa Shelton, ONSHORE DIVER Treatment Plan Because you have a bacterial infection in your bladder, I sent a prescription for an antibiotic to [facility] OUT[facility] (24HRS). I also listed a few [...] of cool water. Refills: None Sent To: [facility] (24HRS) [address] [place] [address] Treatment Plan Self Care Tip Topics What [...] infections. To share notes from your recent [facility] visit with your provider, click Share My Records in your treatment plan. [facility] can provide diagnosis and treatment for future [...] oral Augmentin (amoxicillin-pot clavulanate), oral [facility] Information [facility] Topic We are an online clinic open 02/03. If you have any questions or comments about this visit, please call or email [email or web address] documented in this encounter Plan of Treatment Not on file documented as of this encounter Visit Diagnoses Diagnosis Urinary tract infection, site not specified documented in this encounter Care Teams Credentialing Manager Relationship Specialty Start Date End Date Needs Pcp, [place] [address] PCP - General 11/15/21 documented as of this encounter
--- OUTSIDE RECORDS SUMMARY | 2024-03-04 01:33 | XMS_ITS | Clinical Summary ---
Author Organization [facility] Address [address] [place] [address] Care Team Providers Care Handbag Parts Cutter Name Role Phone Harriet Haley MD Primary Care Provider +[phone] Allergies Active Allergy Reactions Criticality Noted Date [...] prescribed intentionally due to {CHOOSE REASON BEFORE SIGNING!!!:867851} Active order for DMEIndications:Karlie n of toe [...] migh t be different from the original. [email or web address] Problem Noted Date Diagnosed Date Chronic bilateral [...] Comments Blood Pressure 133/88 06/28/2022 9:07 PM CNC SERVICE ENGINEER Pulse 91 06/28/2022 9:07 PM CNC SERVICE ENGINEER Temperature 36.7 ??C (98 ??F) 06/28/2022 9:07 PM CNC SERVICE ENGINEER Respiratory Rate 16 06/28/2022 9:07 PM CNC SERVICE ENGINEER Oxygen Saturation 95% 06/28/2022 9:07 PM CNC SERVICE ENGINEER Inhaled Oxygen Concentration - - Weight 99.8 kg (220 lb) 09/23/2017 6:47 PM CNC SERVICE ENGINEER Height 172.7 cm (5' 8) 09/28/2016 2:53 PM CNC SERVICE ENGINEER Body Mass Index 33.45 09/28/2016 2:53 PM CNC SERVICE ENGINEER Plan of Treatment Health Maintenance Due [...] this topic Medical Devices Implanted Type Area Yarn Dyer Device Identifier Shelf Expiration Date Model / Serial / Lot Sling Sparc Urinary System [id number] Implanted:Qty : 1 on 11/05/2015 Stent N/A: Bladder [employer]ORA 06/15/2018 [id number] / / [id number] Kit Sling Lynx - [id number] Implanted:Qty : 1 on 02/20/2016 Stent N/A: Bladder [employer] 11/25/2018 [id number] / / [id number] C4-C5 Fusion Explanted Type Area Yarn Dyer Device Identifier Shelf Expiration Date Model / Serial / Lot Sparc Sling Explanted:2015 (Quantity not on file) Procedures Procedure Name Priority Date/Time Associated Diagnosis Comments URINE DRUG SCREEN STAT 06/28/2022 3:5 6 PM CNC SERVICE ENGINEER BASIC METABOLIC PANEL STAT 06/28/2022 2:40 PM CNC SERVICE ENGINEER HCL TSH Routine 03/11/2004 9:36 AM CDT Hypothyroidism Nos from Last 3 Months or Most Recently Relevant to Health Maintenance Results * (ABNORMAL) Basic metabolic panel (06/28/2022 2:40 PM CNC SERVICE ENGINEER) Sodium 135(L) 136 - 145 mmol/L 06/28/2022 3:25 PM CNC SERVICE ENGINEER LABORATORY Potassium 3.9 3.4 - 5.3 mmol/L 06/28/2022 3:25 PM [facility] Comment:Specimen slightly he molyzed, potassium may be falsely elevated. Chloride 97(L) 98 - 107 mmol/L 06/28/2022 3:25 PM CNC SERVICE ENGINEER LABORATORY Carbon Dioxide (CO2) 28 22 - 29 mmol/L 06/28/2022 3:25 PM CNC SERVICE ENGINEER LABORATORY Anion Gap 10 7 - 15 mmol/L 06/28/2022 3:25 PM CNC SERVICE ENGINEER LABORATORY Urea Nitrogen 16.1 6.0 - 20.0 mg/dL 06/28/2022 3:25 PM CNC SERVICE ENGINEER LABORATORY Creatinine 0.96(H) 0.51 - 0.95 mg/dL 06/28/2022 3:25 PM CNC SERVICE ENGINEER LABORATORY Calcium 9.4 8.6 - 10.0 mg/dL 06/28/2022 3:25 PM CNC SERVICE ENGINEER LABORATORY Glucose 93 70 - 99 mg/dL 06/28/2022 3:25 PM CNC SERVICE ENGINEER LABORATORY GFR Estimate 69 >60 mL/min/1.7 3m2 06/28/2022 3:25 PM [facility] Comment:Effective July 112020 eGFRcr in adults is calculated using the 2020 CKD-EPI creatinine equation which includes age and gender (Heather et al., NEJ, DOI: 10.1056/BJMYyt1022974) Blood STRUCTURE OF RIGHT UPPER LIMB / Unknown Venipuncture / Unknown 06/28/2022 2:40 PM CNC SERVICE ENGINEER 06/28/2022 2:52 PM CNC SERVICE ENGINEER Pastor Marino MD LAB - BLO OD ORDERABLES LABORATORY [facility] Acute Care Lab [address] [facility] (1st floor, no room number) [place] [address], [facility] [phone] * TSH- (03/11/2004 9:36 AM CDT) TSH 4.10 0.4 - 5.0 mU/L [facility] 03/11/2004 9:36 AM CDT 03/11/2004 9:41 AM CDT Amor Montgomery MD LABORATORY [facility] LAB from Last 3 Months or Most Recently Relevant to Health Maintenance Advance Directives For more information, please contact: [phone] * Full Code (Latest Code Status on File) Date Activated Date Inactivated Comments 10/03/2015 3:40 PM 06/28/2022 2:10 PM * Full Code Date Activated Date Inactivated Comments 10/01/2015 6:21 PM 10/03/2015 3:40 PM Care Teams Handbag Parts Cutter Relationship Specialty Start Date End Date Harriet Haley MD [address] [facility] [address] [place] [address] PCP - General Physician Licensed Funeral Director And Embalmer 10/01/15
--- OUTSIDE RECORDS SUMMARY | 2024-03-04 01:33 | XMS_ITS | Referral Summary ---
Author Organization [place] Address [address] [place] [address] Care Team Providers Care Airconditioning Drafting Officer Name Role Phone Harriet Haley MD Primary Care Provider +1 [phone] Allergies Active Allergy Reactions Criticality Noted Date [...] prescribed intentionally due to {CHOOSE REASON BEFORE SIGNING!!!:840052} Active order for DMEIndications:Karlie n of toe [...] migh t be different from the original. [email or web address] Problem Noted Date Diagnosed Date Chronic bilateral [...] Comments Blood Pressure 133/88 06/28/2022 9:07 PM PANEL COVERER Pulse 91 06/28/2022 9:07 PM PANEL COVERER Temperature 36.7 ??C (98 ??F) 06/28/2022 9:07 PM PANEL COVERER Respiratory Rate 16 06/28/2022 9:07 PM PANEL COVERER Oxygen Saturation 95% 06/28/2022 9:07 PM PANEL COVERER Inhaled Oxygen Concentration - - Weight 99.8 kg (220 lb) 09/23/2017 6:47 PM PANEL COVERER Height 172.7 cm (5' 8) 09/28/2016 2:53 PM PANEL COVERER Body Mass Index 33.45 09/28/2016 2:53 PM PANEL COVERER Plan of Treatment Not on file Medical Devices Implanted Type Area Materials Manager Device Identifier Shelf Expiration Date Model / Serial / Lot Sling Sparc Urinary System [id number] Implanted:Qty : 1 on 11/05/2015 Stent N/A: Bladder ASTORA 06/15/2018 [id number] / / [id number] Kit Sling Lynx - [id number] Implanted:Qty : 1 on 02/20/2016 Stent N/A: Bladder [employer] 11/25/2018 [id number] / / [id number] C4-C5 Fusion Explanted Type Area Materials Manager Device Identifier Shelf Expiration Date Model / Serial / Lot Sparc Sling Explanted:2015 (Quantity not on file) Procedures Procedure Name Priority Date/Time Associated Diagnosis Comments URINE DRUG SCREEN STAT 06/28/2022 3:5 6 PM PANEL COVERER BASIC METABOLIC PANEL STAT 06/28/2022 2:40 PM PANEL COVERER HCL TSH Routine 03/11/2004 9:36 AM CDT Hypothyroidism Nos from Last 3 Months or Most Recently Relevant to Health Maintenance Results * (ABNORMAL) Basic metabolic panel (06/28/2022 2:40 PM PANEL COVERER) Sodium 135(L) 136 - 145 mmol/L 06/28/2022 3:25 PM PANEL COVERER LABORATORY Potassium 3.9 3.4 - 5.3 mmol/L 06/28/2022 3:25 PM [facility] Comment:Specimen slightly he molyzed, potassium may be falsely elevated. Chloride 97(L) 98 - 107 mmol/L 06/28/2022 3:25 PM PANEL COVERER LABORATORY Carbon Dioxide (CO2) 28 22 - 29 mmol/L 06/28/2022 3:25 PM PANEL COVERER LABORATORY Anion Gap 10 7 - 15 mmol/L 06/28/2022 3:25 PM PANEL COVERER LABORATORY Urea Nitrogen 16.1 6.0 - 20.0 mg/dL 06/28/2022 3:25 PM PANEL COVERER LABORATORY Creatinine 0.96(H) 0.51 - 0.95 mg/dL 06/28/2022 3:25 PM PANEL COVERER LABORATORY Calcium 9.4 8.6 - 10.0 mg/dL 06/28/2022 3:25 PM PANEL COVERER LABORATORY Glucose 93 70 - 99 mg/dL 06/28/2022 3:25 PM PANEL COVERER LABORATORY GFR Estimate 69 >60 mL/min/1.7 3m2 06/28/2022 3:25 PM [facility] Comment:Effective July 112020 eGFRcr in adults is calculated using the 2020 CKD-EPI creatinine equation which includes age and gender (Heather et al., NEJ, DOI: 10.1056/LGUBfo1440387) Blood STRUCTURE OF RIGHT UPPER LIMB / Unknown Venipuncture / Unknown 06/28/2022 2:40 PM PANEL COVERER 06/28/2022 2:52 PM PANEL COVERER Pastor Marino MD LAB - BLO OD ORDERABLES LABORATORY [facility] Lab [address] [facility] (1st floor, no room number) [place] [address], [facility] [phone] * TSH- (03/11/2004 9:36 AM CDT) TSH 4.10 0.4 - 5.0 mU/L [facility] 03/11/2004 9:36 AM CDT 03/11/2004 9:41 AM CDT Amor Montgomery MD LABORATORY [facility] from Last 3 Months or Most Recently Relevant to Health Maintenance Advance Directives For more information, please contact: [phone] * Full Code (Latest Code Status on File) Date Activated Date Inactivated Comments 10/03/2015 3:40 PM 06/28/2022 2:10 PM * Full Code Date Activated Date Inactivated Comments 10/01/2015 6:21 PM 10/03/2015 3:40 PM Care Teams Airconditioning Drafting Officer Relationship Specialty Start Date End Date Harriet Haley MD [address] [facility] [address] [place] [address] PCP - General Physician Monument Mason 10/01/15
== END 2024-02-17 22:49 | disposition home or self-care (01) ==
LOC: AMB 03-04 01:31
PROVIDERS: PCP Nurse Practitioner Family; Visit Provider Family Medicine
DX: M25.562 Pain in left knee (principal)
CPT/HCPCS: A0425; A0427

== ENCOUNTER 2024-02-17 23:22 | Emergency (ER) | payer OTHER, SELFPAY ==
[2024-02-17 23:26] VITALS: BP 112/67; PULSE 75; RESP 20; TEMP 36.8; O2SAT 99; BMI 31.9
--- NOTE | 2024-02-17 23:35 | ED_ITS ---
HPI - General Adult General Chief complaint: Lower Extremity Swelling Stated complaint: knee pain Time Seen by Provider: 02/17/24 23:28 History of Present Illness HPI narrative: CC: Left Knee Pain pt. was getting up from chair and started having tightness of left knee. unable to bear weight for EMS. ems gave 100mcg fentanyl . pt. notices swelling. 58-year-old woman presenting to the emergency department concern of left knee pain. Arrives via EMS. Had not been having problems in this knee prior. Went to get up from her chair and then had been standing and she noticed significant swelling almost like muscle spasm in the upper outer left knee area. Tremendous escalation in pain. Fentanyl received by EMS has taken some of the pain away but still having a good deal. Just cannot bear weight or move her leg/knee. Does not want to bend it. Understandably disappointed about these events. Related Data Home Medications ?Medication ?Instructions ?Recorded ?Confirmed aripiprazole 2 mg tablet 2 mg PO DAILY 02/20/22 03/15/24 buspirone 15 mg tablet 7.5 mg PO BID 02/20/22 03/15/24 verapamil 240 mg tablet,extended 240 mg PO DAILY 02/20/22 03/15/24 release bupropion HCl 150 mg 24 hr tablet, 150 mg PO QAM 10/14/23 03/15/24 extended release desvenlafaxine succinate 100 mg 100 mg PO DAILY 10/14/23 03/15/24 tablet,extended release 24 hr desvenlafaxine succinate 25 mg 25 mg PO DAILY 10/14/23 03/15/24 tablet,extended release 24 hr gabapentin 400 mg capsule 400 mg PO 3XD 10/14/23 03/15/24 chlorthalidone 25 mg tablet 25 mg PO DAILY 02/17/24 03/15/24 verapamil 120 mg tablet,extended 120 mg PO DAILY 02/17/24 03/15/24 release Previous Rx's ?Medication ?Instructions ?Recorded rosuvastatin 20 mg tablet See Rx Instructions .Route 01/02/23 .COMPLEX #90 tabs levothyroxine 112 mcg tablet 112 mcg PO DAILY #90 tabs 01/18/24 cephalexin 500 mg capsule 500 mg PO BID 10 days #20 caps 03/15/24 Allergies Allergy/AdvReac Type Severity Reaction Status Date / Time amoxicillin [From Augmentin] Allergy Mild Hives Verified 03/15/24 15:04 clavulanic acid Allergy Mild Hives Verified 03/15/24 15:04 [From Augmentin] pneumococcal vaccine Allergy Mild Verified 03/15/24 15:04 cefuroxime Allergy Unknown Hives Verified 03/15/24 15:04 nitrofurantoin Allergy Unknown Verified 03/15/24 15:04 pregabalin Allergy Unknown Verified 03/15/24 15:04 sulfamethoxazole Allergy Unknown Verified 03/15/24 15:04 [From Sulfamethoxazole-Trimethoprim] trimethoprim Allergy Unknown Verified 03/15/24 15:04 [From Sulfamethoxazole-Trimethoprim] Review of Systems Status of ROS: Reports: 6 or more systems reviewed and unremarkable except as noted in History and below [facility] History Prediabetes ?R73.03 - Prediabetes (ICD-10) Overweight ?E66.3 - Overweight (ICD-10) Urinary frequency ?R35.0 - Frequency of micturition (ICD-10) Surgical History Status post bilateral oophorectomy ?Z90.722 - Acquired absence of ovaries, bilateral (ICD-10) Status post hysterectomy ?Z90.710 - Acquired absence of both cervix and uterus (ICD-10) Status post cholecystectomy ?Z90.49 - Acquired absence of other specified parts of digestive tract (ICD- 10) Status post cervical spinal fusion ?Z98.1 - Arthrodesis status (ICD-10) Status post ?Z98.891 - History of uterine scar from previous surgery (ICD-10) Status post appendectomy ?Z90.49 - Acquired absence of other specified parts of digestive tract (ICD- 10) Family History Other Family history of breast cancer Family history of diabetes mellitus Social History Narrative: former smoker-quit 2020 Smoking Status: Former smoker What tobacco products do you use: cigarettes Smoking quit date/years: <= 15 years ago Do you use any of these nicotine containing products: None Second hand tobacco smoke exposure: No How often do you have a drink containing alcohol: never AUDIT-C Alcohol total score: 0 Non-prescribed substance use: denies use Little interest or pleasure in doing things: several days Feeling down, depressed, or hopeless: several days Exam Narrative: Exam Narrative: Pleasant. Clearly very uncomfortable. Skin is warm dry. The left knee in question is quite tender to any manipulation. There is swelling superior to the patella consistent with an effusion. Due to pain unable really to extend her knee I think due to pain. Subtle depression as well superior to the patella. No laxity to varus or valgus stressors. A cannot do tests of flexion really of knee. Const: Vital Signs, click to edit/add: Vital Signs - 24 hr 02/17/24 23:26 02/17/24 23:41 Temperature 98.2 F Pulse Rate [Right Pulse Oximeter] 75 Respiratory Rate 20 Blood Pressure [Ri ght Upper Arm] 112/67 Pulse Oximetry 99 97 Oxygen Delivery Me thod Room Air Documenting provider has reviewed patient's vital signs: yes Course Vital Signs Vital signs: Initial Vital Signs Temperature 98.2 F 02/17/24 23:26 Temperature Source Temporal Artery Scan 02/17/24 23:26 Pulse Rate 75 02/17/24 23:26 Respiratory Rate 20 02/17/24 23:26 Blood Pressure 112/67 02/17/24 23:26 Blood Pressure Mean 82 02/17/24 23:26 Blood Pressure Position Sitting 02/17/24 23:26 Pulse Oximetry 99 02/17/24 23:26 Oxygen Delivery Method Room Air 02/17/24 23:26 Vital Signs Temperature 98.2 F 02/17/24 23:26 Pulse Rate 75 02/17/24 23:26 Respiratory Rate 20 02/17/24 23:26 Blood Pressure 112/67 02/17/24 23:26 Pulse Oximetry 99 02/17/24 23:26 Oxygen Delivery Method Room Air 02/17/24 23:26 Temperature 98.2 F 02/18/24 01:10 Pulse Rate 71 02/18/24 01:10 Respiratory Rate 20 02/18/24 01:10 Blood Pressure 118/74 02/18/24 01:10 Pulse Oximetry 97 02/18/24 01:02 Oxygen Delivery Method Room Air 02/18/24 01:02 Medications Administered Medications: Discontinued Medications Generic Name Dose Route Start Last Admin Trade Name Freq PRN Reason Stop Dose Admin Hydromorphone HCl 0.5 mg 02/17/24 23:41 02/17/24 23:46 Hydromorphone 0.5 Mg/0.5 Ml Inj IVP 02/17/24 23:42 0.5 mg ONCE ONE Administration Ibuprofen 800 mg 02/18/24 00:52 02/18/24 00:57 Ibuprofen 400 Mg Tablet PO 02/18/24 00:53 800 mg ONCE ONE Administration Medical Decision Making MDM Narrative Medical decision making narrative: I would suspect here ruptured patellar tendon or rectus femoris. Mechanism would not suggest some sort of internal knee derangement otherwise. Is having quite significant pain and I think to further evaluate will need some pain medication. After discussion of options given injection of hydromorphone and oral ibuprofen. MRI likely needed but would be good to start with x-rays of the knee. Looking for avulsion fracture, normal alignment of patella. X-ray of the left knee reviewed by me looks show an effusion. Patella might be a little high riding? No fracture identified. Radiology over-read as below Indication: Knee pain and swelling, patellar tendon or rectus femoris disruption. Technique: Left knee 2 views. Comparison: None. Findings: Bones: Patella franklyn. No acute fracture. No aggressive osseous lesion. Joint spaces: Mild tricompartment osteoarthritis. Possible large knee joint effusion. Soft tissues: Soft tissue swelling in the region of the distal quadriceps tendon. Impression: Patella franklyn with soft tissue swelling in the region of the distal quadriceps tendon versus large knee joint effusion. Findings are concerning for quadriceps tendon injury/disruption. This could be further evaluated with ultrasound or MRI. I think there is a rupture of the rectus femoris or quadriceps tendon. Placed in knee immobilizer. Crutches. Discussed need for pain management. See patient discharge plan for further discussion Medical Records Medical records reviewed: Yes I reviewed the patient's medical records Discharge Plan Discharge Clinical Impression: Rupture of right rectus femoris tendon Patient Disposition: Home w/ Parent or Adult Condition: Stable Additional Instructions: I think you are going to need to wear this knee immobilizer for comfort for a while when up and about. Crutches as needed. I would get 1 or 2 of those screw top ice bags; fill with ice and water and hold on with [place] wrap. Might want to ice your knee 2-3 times daily over the next few days. Please call to Orthopedics in the morning for follow-up. . Diagnosis suspected as above. Can take up to 800 mg of ibuprofen per dose up to 1000 mg of acetaminophen per dose. Each tablet of [place] from [facility] contains 325 mg of acetaminophen. Alternative to the ibuprofen might be up to 500 mg of naproxen 2 times daily. Prescriptions: No Action aripiprazole 2 mg tablet 2 mg PO DAILY buspirone 15 mg tablet 7.5 mg PO BID verapamil 240 mg tablet extended release 240 mg PO DAILY cephalexin 500 mg capsule 500 mg PO BID 10 Days Qty: 20 0RF bupropion HCl 150 mg tablet extended release 24 hr 150 mg PO QAM desvenlafaxine succinate 100 mg tablet extended release 24 hr 100 mg PO DAILY desvenlafaxine succinate 25 mg tablet extended release 24 hr 25 mg PO DAILY gabapentin 400 mg capsule 400 mg PO 3XD verapamil 120 mg tablet extended release 120 mg PO DAILY chlorthalidone 25 mg tablet 25 mg PO DAILY rosuvastatin 20 mg tablet See Rx Instructions .ROUTE .COMPLEX Qty: 90 3RF Dose Instruction: TAKE ONE TABLET BY MOUTH AT BEDTIME Rx Instructions: TAKE ONE TABLET BY MOUTH AT BEDTIME levothyroxine 112 mcg tablet 112 mcg PO DAILY Qty: 90 0RF Follow Up/Referrals: Maria Fernanda Yusuf FRENCH BINDING FOLDER [Primary Care Provider] - Stand Alone Forms: [employer] Info Instructions
[2024-02-17 23:41] VITALS: O2SAT 97
--- NOTE | 2024-02-17 23:41 | CRLHL7_ITS ---
For Patients: As a result of the Century Cures Act, medical imaging exams and procedure reports are released immediately into your electronic medical record. You may view this report before your referring provider. If you have questions, please contact your health care provider. Indication: Knee pain and swelling, patellar tendon or rectus femoris disruption. Technique: Left knee 2 views. Comparison: None. Findings: Bones: Patella franklyn. No acute fracture. No aggressive osseous lesion. Joint spaces: Mild tricompartment osteoarthritis. Possible large knee joint effusion. Soft tissues: Soft tissue swelling in the region of the distal quadriceps tendon. Impression: Patella franklyn with soft tissue swelling in the region of the distal quadriceps tendon versus large knee joint effusion. Findings are concerning for quadriceps tendon injury/disruption. This could be further evaluated with ultrasound or MRI. Dictated by Itz Sen MD @ 02/18/2024 12:26:43 AM (Electronically Signed)
[2024-02-17] MEDS: HYDROmorphone 0.5 mg/0.5 ml inj IVP (23:46)
--- OUTSIDE RECORDS SUMMARY | 2024-02-17 23:54 | XMS_ITS | Encounter Summary ---
Author Organization [facility] Address [address] [place] [address] Care Team Providers Care Alumina Plant Supervisor Name Role Phone Needs Pcp, Assignment Primary Care Provider [phone] Encounter Details Date Type Department Care Team (Late st Contact Info) Description 02/17/2024 Telephone Careline [address] [place], [place] [phone] Juan J Allen Social History Tobacco Use Types Packs/Day Years Used Date Smoking Tobacco: Never Smokeless Tobacco: Never Financial Resource Strain Answer Date R ecorded Is it hard for you to pay fo r the very basics like food, housing, medical care or heating? No 02/15/2024 Food Insecurity Answer Date Recorded Does your food run out before you have the money to buy more? No 02/15/2024 Transportation Needs Answer Date Record ed Does a lack of transportatio n keep you from your medical appointments or from getting your medications? No 024 Sex and Gender Information Value Date Recorded Sex Assigned at Not on file Gender Identity Not on file Sexual Orientation Not on file documented as of this encounter Nursing Notes * Juan J Allen - 02/17/2024 9:55 PM CDT Verified patient identity using three identifiers: Yes Caller's relationship to patient: Self, Do you have a provider/clinic where you are seen for this? [facility] Are you calling about a related concern: No What is your question or concern Pt didn't want to disclose If patient is reporting symptoms, are any of the symptoms the patient is describing on the Red FlagList? No: Plan: Transferred caller to [facility] documented in this encounter Plan of Treatment Upcoming Encounters Date Type Department Care Team (Late st Contact Info) Description 02/19/2024 2:20 PM CDT Appointment [place] [address] [facility] [address] [place] [address] Jaci Denson PA-C [address] [place] [address] documented as of this encounter Visit Diagnoses Not on filedocumented in this encounter Care Teams Alumina Plant Supervisor Relationship Specialty Start Date End Date Needs Pcp, [place] [address] PCP - General 11/15/21 documented as of this encounter
--- OUTSIDE RECORDS SUMMARY | 2024-02-17 23:54 | XMS_ITS | Encounter Summary ---
Author Organization [facility] Address [address] [address] Care Team Providers Care Tile Grinder Name Role Phone Needs Pcp, Assignment Primary Care Provider [phone] Reason for Visit * Reason Comments KNEE PAIN Encounter Details Date Type Department Care Team (Late st Contact Info) Description 02/17/2024 Nurse Triage [facility] [address] [place], [place] [id number] Needs Pcp, [place] [address] KNEE PAIN Social History Tobacco Use Types Packs/Day Years [...] as of this encounter Nursing Notes * Joanie Hines RN - 02/17/2024 9:58 PM CDT Spoke to pt, calling to report left knee pain that started today. Pain is severe. Rated 9/10 Appears swollen. Denies injury. Pt states she cannot bare any weight, bend or lift the leg due to pain. Has tried applying heat, ice and muscle relaxant without any relief. Care advice given per protocol- pt agrees to plan.Advised to call back for any new or worsening sxs or concerns. Denies fever and joint swelling. Problem list reviewed as related to this call. Reason for Disposition [1] SEVERE pain (e.g., excruciating, unable to walk) AND [2] not improved after 2 hours of pain medicine Protocols used: Knee [id number] documented in this encounter Plan of Treatment Upcoming Encounters Date Type Department Care Team (Late st Contact Info) Description 02/19/2024 2:20 PM CDT Appointment [place] [address] [facility] [id number] [place] [address] Jaci Denson PA-C [address] [place], [place] [phone] documented as of this encounter Visit Diagnoses Not on filedocumented in this encounter Care Teams Tile Grinder Relationship Specialty Start Date End Date Needs Pcp, [place] [address] PCP - General 11/15/21 documented as of this encounter
--- OUTSIDE RECORDS SUMMARY | 2024-02-17 23:54 | XMS_ITS | Clinical Summary ---
Author Organization [facility] Address [address] [place] [address] Care Team Providers Care Mop Man Name Role Phone Needs Pcp, Assignment Primary Care Provider [phone] Source Comments You are receiving this document as you are listed as the primary care provider,follow-up provider, or the patient has been referred to you for consultation.This is in compliance with the Medicare and[facility] EHR Incentive Program,which states Providers who transition their patient to another setting of careor provider of care or refers their patient to another provider of care shouldprovide summary care record for each transition of care or referral. [employer] Allergies Active Allergy Reactions Criticality Noted Date [...] Encounters Date Type Department Care Team Description 02/17/2024 Nurse Triage [facility] Nurse Line [address] [place] [address] Needs Pcp, Assignment KNEE PAIN 02/17/2024 Telephone Careline [address] [place], [place] [address] AlejandroSkinnymray Iraheta 12/12/2023 [facility] [phone] from Last 3 Months Social History Tobacco [...] Mass Index - - Plan of Treatment Upcoming Encounters Date Type Department Care Team (Late st Contact Info) Description 02/19/2024 2:20 PM CDT Appointment [place] [address] Family Medicine [address] [place] [address] Jaci Denson PA-C [address] [place] [address] Health Maintenance Due Date Last Done Comments Cervical Cancer Screening Due 1965 Colon Cancer Screening Plan Due 1965 Hep C Screening (Preventive Services) 1965 Mammogram 1965 HIV Screening (Preventive Services) 1981 Adult Preventive Visit 10/26/1983 HepB (1) 1984 Cholesterol 2010 Zoster/Shingles (1 of 2) 10/26/2015 COVID-19 Vaccine (4 - season) 2023 05/14/2021, 08/29/2020, 08/08/2020 Influenza (#1) 2024 04/30/2022, 04/11, 05/07/2020, Additional history exists DTaP/Tdap/Td [...] age to complete this topic Care Teams Mop Man Relationship Specialty Start Date End Date Needs Pcp, Reina [place], [place] [id number] PCP - General 11/15/21
--- OUTSIDE RECORDS SUMMARY | 2024-02-17 23:55 | XMS_ITS | Clinical Summary ---
Author Organization [facility] Address [address] [place] [address] Care Team Providers Care Automotive Service Consultant Name Role Phone Harriet Haley MD Primary Care Provider [phone] Allergies Active Allergy Reactions Criticality Noted Date [...] prescribed intentionally due to {CHOOSE REASON BEFORE SIGNING!!!:897027} Active order for DMEIndications:Karlie n of toe [...] migh t be different from the original. [email or web address] Problem Noted Date Diagnosed Date Chronic bilateral [...] Comments Blood Pressure 133/88 06/28/2022 9:07 PM MINE MOTOR ENGINEER Pulse 91 06/28/2022 9:07 PM MINE MOTOR ENGINEER Temperature 36.7 ??C (98 ??F) 06/28/2022 9:07 PM MINE MOTOR ENGINEER Respiratory Rate 16 06/28/2022 9:07 PM MINE MOTOR ENGINEER Oxygen Saturation 95% 06/28/2022 9:07 PM MINE MOTOR ENGINEER Inhaled Oxygen Concentration - - Weight 99.8 kg (220 lb) 09/23/2017 6:47 PM MINE MOTOR ENGINEER Height 172.7 cm (5' 8) 09/28/2016 2:53 PM MINE MOTOR ENGINEER Body Mass Index 33.45 09/28/2016 2:53 PM MINE MOTOR ENGINEER Plan of Treatment Health Maintenance Due [...] Vaccine ( season) 2023 05/14/2021, 08/29/2020, 08/08/2020 URINE DRUG SCREEN 06/28/2023 06/28/2022 PHQ-2 (once per calendar year) 2023 10/10/2015 INFLUENZA VACCINE (#1) 2024 2, 04/29/2021, 05/07/2020, Additional history exists DTAP/TDAP/TD IMMUNIZATION (2 - Td or Tdap) [...] this topic Medical Devices Implanted Type Area Production Operator Device Identifier Shelf Expiration Date Model / Serial / Lot Sling Sparc Urinary System [id number] Implanted:Qty : 1 on 11/05/2015 Stent N/A: Bladder [employer]OR[employer] 06/15/2018 [id number] / / [id number] Kit Sling Lynx - [id number] Implanted:Qty : 1 on 02/20/2016 Stent N/A: Bladder [employer] 11/25/2018 [id number] / / [id number] C4-C5 Fusion Explanted Type Area Production Operator Device Identifier Shelf Expiration Date Model / Serial / Lot Sparc Sling Explanted:2015 (Quantity not on file) Procedures Procedure Name Priority Date/Time Associated Diagnosis Comments URINE DRUG SCREEN STAT 06/28/2022 3:5 6 PM MINE MOTOR ENGINEER BASIC METABOLIC PANEL STAT 06/28/2022 2:40 PM MINE MOTOR ENGINEER HCL TSH Routine 03/11/2004 9:36 AM CDT Hypothyroidism Nos from Last 3 Months or Most Recently Relevant to Health Maintenance Results * (ABNORMAL) Basic metabolic panel (06/28/2022 2:40 PM MINE MOTOR ENGINEER) Sodium 135(L) 136 - 145 mmol/L 06/28/2022 3:25 PM MINE MOTOR ENGINEER [facility] Potassium 3.9 3.4 - 5.3 mmol/L 06/28/2022 3:25 PM [facility] Comment:Specimen slightly he molyzed, potassium may be falsely elevated. Chloride 97(L) 98 - 107 mmol/L 06/28/2022 3:25 PM MINE MOTOR ENGINEER [facility] Carbon Dioxide (CO2) 28 22 - 29 mmol/L 06/28/2022 3:25 PM MINE MOTOR ENGINEER [facility] Anion Gap 10 7 - 15 mmol/L 06/28/2022 3:25 PM MINE MOTOR ENGINEER [facility] Urea Nitrogen 16.1 6.0 - 20.0 mg/dL 06/28/2022 3:25 PM MINE MOTOR ENGINEER [facility] Creatinine 0.96(H) 0.51 - 0.95 mg/dL 06/28/2022 3:25 PM MINE MOTOR ENGINEER [facility] Calcium 9.4 8.6 - 10.0 mg/dL 06/28/2022 3:25 PM MINE MOTOR ENGINEER [facility] Glucose 93 70 - 99 mg/dL 06/28/2022 3:25 PM MINE MOTOR ENGINEER [facility] GFR Estimate 69 >60 mL/min/1.7 3m2 06/28/2022 3:25 PM [facility] Comment:Effective July 112020 eGFRcr in adults is calculated using the 2020 CKD-EPI creatinine equation which includes age and gender (Heather et al., NEJ, DOI: 10.1056/VQQDxs3454118) Blood STRUCTURE OF RIGHT UPPER LIMB / Unknown Venipuncture / Unknown 06/28/2022 2:40 PM MINE MOTOR ENGINEER 06/28/2022 2:52 PM MINE MOTOR ENGINEER Pastor Marino MD LAB - BLO OD ORDERABLES LABORATORY [facility] [address] [facility] (1st floor, no room number) [place] [address], [facility] [phone] * TSH- (03/11/2004 9:36 AM CDT) TSH 4.10 0.4 - 5.0 mU/L [facility] 03/11/2004 9:36 AM CDT 03/11/2004 9:41 AM CDT Amor Montgomery MD LABORATORY [facility] from Last 3 Months or Most Recently Relevant to Health Maintenance Advance Directives For more information, please contact: [phone] * Full Code (Latest Code Status on File) Date Activated Date Inactivated Comments 10/03/2015 3:40 PM 06/28/2022 2:10 PM * Full Code Date Activated Date Inactivated Comments 10/01/2015 6:21 PM 10/03/2015 3:40 PM Care Teams Automotive Service Consultant Relationship Specialty Start Date End Date Harriet Haley MD [address] [facility] [address] [place] [address] PCP - General Physician Build And Release Manager 10/01/15
--- OUTSIDE RECORDS SUMMARY | 2024-02-17 23:55 | XMS_ITS | Referral Summary ---
Author Organization [facility] Address [address] [place] [address] Care Team Providers Care Ski Topper Name Role Phone Harriet Haley MD Primary Care Provider +1 -[phone] Allergies Active Allergy Reactions Criticality Noted Date [...] prescribed intentionally due to {CHOOSE REASON BEFORE SIGNING!!!:914754} Active order for DMEIndications:Karlie n of toe [...] migh t be different from the original. [email or web address] Problem Noted Date Diagnosed Date Chronic bilateral [...] Comments Blood Pressure 133/88 06/28/2022 9:07 PM MEDICAL ADMINISTRATIVE TECHNICIAN Pulse 91 06/28/2022 9:07 PM MEDICAL ADMINISTRATIVE TECHNICIAN Temperature 36.7 ??C (98 ??F) 06/28/2022 9:07 PM MEDICAL ADMINISTRATIVE TECHNICIAN Respiratory Rate 16 06/28/2022 9:07 PM MEDICAL ADMINISTRATIVE TECHNICIAN Oxygen Saturation 95% 06/28/2022 9:07 PM MEDICAL ADMINISTRATIVE TECHNICIAN Inhaled Oxygen Concentration - - Weight 99.8 kg (220 lb) 09/23/2017 6:47 PM MEDICAL ADMINISTRATIVE TECHNICIAN Height 172.7 cm (5' 8) 09/28/2016 2:53 PM MEDICAL ADMINISTRATIVE TECHNICIAN Body Mass Index 33.45 09/28/2016 2:53 PM MEDICAL ADMINISTRATIVE TECHNICIAN Plan of Treatment Not on file Medical Devices Implanted Type Area Invisible Braces Orthodontist Device Identifier Shelf Expiration Date Model / Serial / Lot Sling Sparc Urinary System [id number] Implanted:Qty : 1 on 11/05/2015 Stent N/A: Bladder ASTORA 06/15/2018 [id number] / / [id number] Kit Sling Lynx - [id number] Implanted:Qty : 1 on 02/20/2016 Stent N/A: Bladder [employer] 11/25/2018 [id number] / / [id number] C4-C5 Fusion Explanted Type Area Invisible Braces Orthodontist Device Identifier Shelf Expiration Date Model / Serial / Lot Sparc Sling Explanted:2015 (Quantity not on file) Procedures Procedure Name Priority Date/Time Associated Diagnosis Comments URINE DRUG SCREEN STAT 06/28/2022 3:5 6 PM MEDICAL ADMINISTRATIVE TECHNICIAN BASIC METABOLIC PANEL STAT 06/28/2022 2:40 PM MEDICAL ADMINISTRATIVE TECHNICIAN HCL TSH Routine 03/11/2004 9:36 AM CDT Hypothyroidism Nos from Last 3 Months or Most Recently Relevant to Health Maintenance Results * (ABNORMAL) Basic metabolic panel (06/28/2022 2:40 PM MEDICAL ADMINISTRATIVE TECHNICIAN) Sodium 135(L) 136 - 145 mmol/L 06/28/2022 3:25 PM MEDICAL ADMINISTRATIVE TECHNICIAN LABORATORY Potassium 3.9 3.4 - 5.3 mmol/L 06/28/2022 3:25 PM [facility] Comment:Specimen slightly he molyzed, potassium may be falsely elevated. Chloride 97(L) 98 - 107 mmol/L 06/28/2022 3:25 PM MEDICAL ADMINISTRATIVE TECHNICIAN LABORATORY Carbon Dioxide (CO2) 28 22 - 29 mmol/L 06/28/2022 3:25 PM MEDICAL ADMINISTRATIVE TECHNICIAN LABORATORY Anion Gap 10 7 - 15 mmol/L 06/28/2022 3:25 PM MEDICAL ADMINISTRATIVE TECHNICIAN LABORATORY Urea Nitrogen 16.1 6.0 - 20.0 mg/dL 06/28/2022 3:25 PM MEDICAL ADMINISTRATIVE TECHNICIAN LABORATORY Creatinine 0.96(H) 0.51 - 0.95 mg/dL 06/28/2022 3:25 PM MEDICAL ADMINISTRATIVE TECHNICIAN LABORATORY Calcium 9.4 8.6 - 10.0 mg/dL 06/28/2022 3:25 PM MEDICAL ADMINISTRATIVE TECHNICIAN LABORATORY Glucose 93 70 - 99 mg/dL 06/28/2022 3:25 PM MEDICAL ADMINISTRATIVE TECHNICIAN LABORATORY GFR Estimate 69 >60 mL/min/1.7 3m2 06/28/2022 3:25 PM [facility] Comment:Effective July 112020 eGFRcr in adults is calculated using the 2020 CKD-EPI creatinine equation which includes age and gender (Heather et al., NEJ, DOI: 10.1056/AISWcc8592208) Blood STRUCTURE OF RIGHT UPPER LIMB / Unknown Venipuncture / Unknown 06/28/2022 2:40 PM MEDICAL ADMINISTRATIVE TECHNICIAN 06/28/2022 2:52 PM MEDICAL ADMINISTRATIVE TECHNICIAN Pastor Marino MD LAB - BLO OD ORDERABLES LABORATORY [facility] [address] [facility] (1st floor, no room number) [place] [address], [facility] [phone] * TSH- (03/11/2004 9:36 AM CDT) TSH 4.10 0.4 - 5.0 mU/L [facility] 03/11/2004 9:36 AM CDT 03/11/2004 9:41 AM CDT Amor Montgomery MD LABORATORY [facility] from Last 3 Months or Most Recently Relevant to Health Maintenance Advance Directives For more information, please contact: [phone] * Full Code (Latest Code Status on File) Date Activated Date Inactivated Comments 10/03/2015 3:40 PM 06/28/2022 2:10 PM * Full Code Date Activated Date Inactivated Comments 10/01/2015 6:21 PM 10/03/2015 3:40 PM Care Teams Ski Topper Relationship Specialty Start Date End Date Harriet Haley MD [address] [facility] [address] [place] [address] PCP - General Physician Maintenance Man 10/01/15
--- OUTSIDE RECORDS SUMMARY | 2024-02-17 23:55 | XMS_ITS | Encounter Summary ---
Author [facility] Address [address] [address] Care Team Providers Care Granular Operator Name Role Phone Needs Pcp, Assignment Primary Care Provider [phone] Encounter Details Date Type Department Care Team (Late st Contact Info) Description 12/12/2023 delfina Nickerson [phone] Social History Tobacco Use Types Packs/Day Years [...] From Provider Santosh Samuel,Thank you for using [facility]! I?? sorry to hear that you're having [...] Follow Up Request. Feel better soon!Felisa Shelton, PARTS WASHER Treatment Plan Because you have a bacterial infection in your bladder, I sent a prescription for an antibiotic to [facility] OUTpatient (24HRS). I also listed a few [...] of cool water. Refills: None Sent To: [facility] (24HRS) [address] [place], [place] [id number] Treatment Plan Self Care Tip Topics What [...] infections. To share notes from your recent [facility] visit with your provider, click Share My Records in your treatment plan. [facility] can provide diagnosis and treatment for future [...] oral Augmentin (amoxicillin-pot clavulanate), oral [facility] Information [facility] by [employer] We are an online clinic open 02/03. If you have any questions or comments about this visit, please call or email [email or web address] documented in this encounter Plan of Treatment Upcoming Encounters Date Type Department Care Team (Late st Contact Info) Description 02/19/2024 2:20 PM CDT Appointment [place] [address] [facility] [address] [place] [phone] Jaci Denson PA-C [address] [place] [address] documented as of this encounter Visit Diagnoses Diagnosis Urinary tract infection, site not specified documented in this encounter Care Teams Granular Operator Relationship Specialty Start Date End Date Needs Pcp, [place] [address] PCP - General 11/15/21 documented as of this encounter
--- OUTSIDE RECORDS SUMMARY | 2024-02-17 23:55 | XMS_ITS | Encounter Summary ---
Author Organization [place] Address [address] [place] [address] Care Team Providers Care Pediatric Hospitalist Name Role Phone Amor Montgomery MD Primary Care Provider [phone] Nissa Cassidy DO Primary Care Provider + Harriet Haley MD Primary Care Provider [phone] Encounter Details Date Type Department Care Team (Late st Contact Info) Description 01/27/[address] [place] [address] Amor Montgomery MD [facility] [address] [place] [address] ER ENCOUNTER (Primary Dx) Social History Tobacco [...] Primary documented in this encounter Care Teams Pediatric Hospitalist Relationship Specialty Start Date End Date Amor Montgomery MD [facility] [address] [place] [address] PCP - General 09/24/01 05/05/13 Nissa Cassidy DO [facility] [address] [place] [address] PCP - General Internal Medicine 05/06/13 09/30/15 Harriet Haley MD [address] [address] PCP - General Physician Smocker 10/01/15 documented as of this encounter
--- OUTSIDE RECORDS SUMMARY | 2024-02-17 23:55 | XMS_ITS | Encounter Summary ---
Author Organization [facility] Address [address] [place] [address] Care Team Providers Care General Repair Mechanic Name Role Phone Harriet Haley MD Primary Care Provider [phone] Reason for Visit * Reason Onset Date Comments Procedure 2015 LESI Encounter Details Date Type Department Care Team (Late st Contact Info) Description 2015 Telephone [facility] [place] [address] [place] [address] [address] [place] [address] Pain Management Program, [facility] Procedure (LESI) Social History Tobacco Use [...] 9:32 AM CDT Called pt to schedule LULII, lvm. Babita Rosado Forestry Biology Specialist [facility] * Telephone Encounter - Babita Rosado - 2015 8:37 AM CDT Called pt to schedule LULIIMELVINMHeraclio Rosado Forestry Biology Specialist [facility] * Telephone Encounter - Alfreda Segura - 2015 8:14 AM CDT Order received from [facility] for TF LESI. Order scanned to telephone encounter, routing to scheduling coordinators to contact patient. Alfreda Segura Forestry Biology Specialist [facility] documented in this encounter Plan of Treatment Not on file documented as of this encounter Visit Diagnoses Not on filedocumented in this encounter Care Teams General Repair Mechanic Relationship Specialty Start Date End Date Harriet Haley MD [address] [facility] [address] [place] [address] PCP - General Physician Glass Breaker 10/01/15 documented as of this encounter
[2024-02-18 00:57] VITALS: TEMP 36.8
[2024-02-18] MEDS: IBUPROFEN 400 MG TABLET 800 MG PO (00:57)
[2024-02-18 01:02] VITALS: BP 118/74; PULSE 71; RESP 20; TEMP 36.8; O2SAT 97
[2024-02-18 01:10] VITALS: BP 118/74; PULSE 71; RESP 20; TEMP 36.8
== END 2024-02-18 01:15 | disposition home or self-care (01) ==
PROVIDERS: Emergency Provider Family Medicine; PCP Nurse Practitioner Family
DX: S76.112A Strain of left quadriceps muscle, fascia and tendon, initial encounter (principal)
CPT/HCPCS: 73560; 94761; 96374; 99284; A9270; J1170

== ENCOUNTER 2024-03-15 15:03 | Outpatient (CLI) | payer OTHER, SELFPAY ==
--- OUTSIDE RECORDS SUMMARY | 2024-03-16 10:56 | XMS_ITS | Clinical Summary ---
Author Organization [facility] Address [address] [place] [address] Care Team Providers Care Lead Systems Architect Name Role Phone Harriet Haley MD Primary Care Provider [phone] [phone] Allergies Active Allergy Reactions Criticality Noted Date [...] prescribed intentionally due to {CHOOSE REASON BEFORE SIGNING!!!:378367} Active order for DMEIndications:Karlie n of toe [...] migh t be different from the original. [email or web address] Problem Noted Date Diagnosed Date Chronic bilateral [...] Comments Blood Pressure 133/88 06/28/2022 9:07 PM FLIGHT ATTENDANT Pulse 91 06/28/2022 9:07 PM FLIGHT ATTENDANT Temperature 36.7 ??C (98 ??F) 06/28/2022 9:07 PM FLIGHT ATTENDANT Respiratory Rate 16 06/28/2022 9:07 PM FLIGHT ATTENDANT Oxygen Saturation 95% 06/28/2022 9:07 PM FLIGHT ATTENDANT Inhaled Oxygen Concentration - - Weight 99.8 kg (220 lb) 09/23/2017 6:47 PM FLIGHT ATTENDANT Height 172.7 cm (5' 8) 09/28/2016 2:53 PM FLIGHT ATTENDANT Body Mass Index 33.45 09/28/2016 2:53 PM FLIGHT ATTENDANT Plan of Treatment Health Maintenance Due Date [...] this topic Medical Devices Implanted Type Area End Packer Device Identifier Shelf Expiration Date Model / Serial / Lot Sling Sparc Urinary System [id number] Implanted:Qty : 1 on 11/05/2015 Stent N/A: Bladder [employer]ORA 06/15/2018 [id number] / / [id number] Kit Sling Lynx - [id number] Implanted:Qty : 1 on 02/20/2016 Stent N/A: Bladder [employer] 11/25/2018 [id number] / / [id number] C4-C5 Fusion Explanted Type Area End Packer Device Identifier Shelf Expiration Date Model / Serial / Lot Sparc Sling Explanted:2015 (Quantity not on file) Procedures Procedure Name Priority Date/Time Associated Diagnosis Comments URINE DRUG SCREEN STAT 06/28/2022 3:5 6 PM FLIGHT ATTENDANT BASIC METABOLIC PANEL STAT 06/28/2022 2:40 PM FLIGHT ATTENDANT HCL TSH Routine 03/11/2004 9:36 AM CDT Hypothyroidism Nos from Last 3 Months or Most Recently Relevant to Health Maintenance Results * (ABNORMAL) Basic metabolic panel (06/28/2022 2:40 PM FLIGHT ATTENDANT) Sodium 135(L) 136 - 145 mmol/L 06/28/2022 3:25 PM FLIGHT ATTENDANT LABORATORY Potassium 3.9 3.4 - 5.3 mmol/L 06/28/2022 3:25 PM [facility] Comment:Specimen slightly he molyzed, potassium may be falsely elevated. Chloride 97(L) 98 - 107 mmol/L 06/28/2022 3:25 PM FLIGHT ATTENDANT LABORATORY Carbon Dioxide (CO2) 28 22 - 29 mmol/L 06/28/2022 3:25 PM FLIGHT ATTENDANT LABORATORY Anion Gap 10 7 - 15 mmol/L 06/28/2022 3:25 PM FLIGHT ATTENDANT LABORATORY Urea Nitrogen 16.1 6.0 - 20.0 mg/dL 06/28/2022 3:25 PM FLIGHT ATTENDANT LABORATORY Creatinine 0.96(H) 0.51 - 0.95 mg/dL 06/28/2022 3:25 PM FLIGHT ATTENDANT LABORATORY Calcium 9.4 8.6 - 10.0 mg/dL 06/28/2022 3:25 PM FLIGHT ATTENDANT LABORATORY Glucose 93 70 - 99 mg/dL 06/28/2022 3:25 PM FLIGHT ATTENDANT LABORATORY GFR Estimate 69 >60 mL/min/1.7 3m2 06/28/2022 3:25 PM [facility] Comment:Effective July 112020 eGFRcr in adults is calculated using the 2020 CKD-EPI creatinine equation which includes age and gender (Heather et al., NEJ, DOI: 10.1056/YHMNpf3745082) Blood STRUCTURE OF RIGHT UPPER LIMB / Unknown Venipuncture / Unknown 06/28/2022 2:40 PM FLIGHT ATTENDANT 06/28/2022 2:52 PM FLIGHT ATTENDANT Pastor Marino MD LAB - BLO OD ORDERABLES LABORATORY [facility] Acute Care Lab [address] (1st floor, no room number) [place] [address], [facility] [phone] * TSH- (03/11/2004 9:36 AM CDT) TSH 4.10 0.4 - 5.0 mU/L [facility] 03/11/2004 9:36 AM CDT 03/11/2004 9:41 AM CDT Amor Montgomery MD LABORATORY [facility] LAB from Last 3 Months or Most Recently Relevant to Health Maintenance Advance Directives For more information, please contact: [phone] * Full Code (Latest Code Status on File) Date Activated Date Inactivated Comments 10/03/2015 3:40 PM 06/28/2022 2:10 PM * Full Code Date Activated Date Inactivated Comments 10/01/2015 6:21 PM 10/03/2015 3:40 PM Care Teams Lead Systems Architect Relationship Specialty Start Date End Date Harriet Haley MD [address] [facility] [address] [address] PCP - General Physician Cow Puncher 10/01/15
--- OUTSIDE RECORDS SUMMARY | 2024-03-16 10:56 | XMS_ITS | Encounter Summary ---
Author Organization [place] Address [address] [place] [address] Care Team Providers Care Health Insurance Adjuster Name Role Phone Amor Montgomery MD Primary Care Provider [phone] Nissa Cassidy DO Primary Care Provider + Harriet Haley MD Primary Care Provider [phone] [phone] Encounter Details Date Type Department Care Team (Late st Contact Info) Description 01/27/[address] [place] [address] Amor Montgomery MD [facility] [address] [place] [address] ER ENCOUNTER (Primary Dx) Social History Tobacco [...] documented in this encounter Care Teams Health Insurance Adjuster Relationship Specialty Start Date End Date Amor Montgomery MD [facility] [address] [place] [address] PCP - General 09/24/01 05/05/13 Nissa Cassidy DO [facility] [address] [place] [address] PCP - General Internal Medicine 05/06/13 09/30/15 Harriet Haley MD [address] [address] PCP - General Physician Student Teacher 10/01/15 documented as of this encounter
--- OUTSIDE RECORDS SUMMARY | 2024-03-16 10:56 | XMS_ITS | Clinical Summary ---
Author Organization [facility] Address [address] [place] [address] Care Team Providers Care Bonded Strand Operator Name Role Phone Needs Pcp, Assignment Primary Care Provider [phone] Source Comments You are receiving this document as you are listed as the primary care provider,follow-up provider, or the patient has been referred to you for consultation.This is in compliance with the Medicare and[facility] EHR Incentive Program,which states Providers who transition their patient to another setting of careor provider of care or refers their patient to another provider of care shouldprovide summary care record for each transition of care or referral. [employer] Allergies Active Allergy Reactions Criticality Noted Date [...] Description 02/17/2024 Nurse Triage [facility] [address] [place], [place] [id number] Needs Pcp, Assignment KNEE PAIN 02/17/2024 Telephone [facility]line [address] [place] [address] Juan J Allen from Last 3 Months Immunizations Name Administration Dates Next Due Flu Vac (18-64 Yrs), Intradermal 05/07/2020 Flu Vac (3+ yrs) 04/27/2017, 3,05/10/2012,2010,06/10/2010 Fluzone Qiv Multidose Vial 0 .25 (6-35 Mos) 05/05/2018,06/15/2014 [id number] 06/28/2009 Influenza IIV4 (Quadrivalent ) 0.5mL (43816) 04/30/2022,04/29/2021,05/02/2019,2015,06/18/2015 Influenza, Unspecified Formulation 07/09/2016, PCV13 (Prevnar) [...] Care Team (Late st Contact Info) Description 03/18/2024 3:00 PM CDT Appointment [place] [address] Family Medicine [address] [place] [address] Federica Pittman, ENGINE SPECIALIST, FUEL SYSTEM MAINTENANCE WORKER [address] [place] [address] Health Maintenance Due Date Last Done Comments [...] age to complete this topic Care Teams Bonded Strand Operator Relationship Specialty Start Date End Date Needs Pcp, [place], [place] [id number] PCP - General 11/15/21
--- OUTSIDE RECORDS SUMMARY | 2024-03-16 10:56 | XMS_ITS | Referral Summary ---
Author Organization [facility] Address [address] [place] [address] Care Team Providers Care Jewelry Maker Name Role Phone Harriet Haley MD Primary Care Provider [phone] Allergies Active Allergy Reactions Criticality Noted Date [...] prescribed intentionally due to {CHOOSE REASON BEFORE SIGNING!!!:560129} Active order for DMEIndications:Karlie n of toe [...] migh t be different from the original. [email or web address] Problem Noted Date Diagnosed Date Chronic bilateral [...] Comments Blood Pressure 133/88 06/28/2022 9:07 PM GEM CARVER Pulse 91 06/28/2022 9:07 PM GEM CARVER Temperature 36.7 ??C (98 ??F) 06/28/2022 9:07 PM GEM CARVER Respiratory Rate 16 06/28/2022 9:07 PM GEM CARVER Oxygen Saturation 95% 06/28/2022 9:07 PM GEM CARVER Inhaled Oxygen Concentration - - Weight 99.8 kg (220 lb) 09/23/2017 6:47 PM GEM CARVER Height 172.7 cm (5' 8) 09/28/2016 2:53 PM GEM CARVER Body Mass Index 33.45 09/28/2016 2:53 PM GEM CARVER Plan of Treatment Not on file Medical Devices Implanted Type Area Client Service Professional Device Identifier Shelf Expiration Date Model / Serial / Lot Sling Sparc Urinary System [id number] Implanted:Qty : 1 on 11/05/2015 Stent N/A: Bladder [employer]ORA 06/15/2018 [id number] / / [id number] Kit Sling Lynx - [id number] Implanted:Qty : 1 on 02/20/2016 Stent N/A: Bladder [employer] 11/25/2018 [id number] / / [id number] C4-C5 Fusion Explanted Type Area Client Service Professional Device Identifier Shelf Expiration Date Model / Serial / Lot Sparc Sling Explanted:2015 (Quantity not on file) Procedures Procedure Name Priority Date/Time Associated Diagnosis Comments URINE DRUG SCREEN STAT 06/28/2022 3:5 6 PM GEM CARVER BASIC METABOLIC PANEL STAT 06/28/2022 2:40 PM GEM CARVER HCL TSH Routine 03/11/2004 9:36 AM CDT Hypothyroidism Nos from Last 3 Months or Most Recently Relevant to Health Maintenance Results * (ABNORMAL) Basic metabolic panel (06/28/2022 2:40 PM GEM CARVER) Sodium 135(L) 136 - 145 mmol/L 06/28/2022 3:25 PM GEM CARVER LABORATORY Potassium 3.9 3.4 - 5.3 mmol/L 06/28/2022 3:25 PM [facility] Comment:Specimen slightly he molyzed, potassium may be falsely elevated. Chloride 97(L) 98 - 107 mmol/L 06/28/2022 3:25 PM GEM CARVER LABORATORY Carbon Dioxide (CO2) 28 22 - 29 mmol/L 06/28/2022 3:25 PM GEM CARVER LABORAT[facility] Anion Gap 10 7 - 15 mmol/L 06/28/2022 3:25 PM GEM CARVER LABOR[facility] Urea Nitrogen 16.1 6.0 - 20.0 mg/dL 06/28/2022 3:25 PM [facility] Creatinine 0.96(H) 0.51 - 0.95 mg/dL 06/28/2022 3:25 PM [facility] Calcium 9.4 8.6 - 10.0 mg/dL 06/28/2022 3:25 PM [facility] Glucose 93 70 - 99 mg/dL 06/28/2022 3:25 PM [facility] GFR Estimate 69 >60 mL/min/1.7 3m2 06/28/2022 3:25 PM [facility] Comment:Effective July 112020 eGFRcr in adults is calculated using the 2020 CKD-EPI creatinine equation which includes age and gender (Heather et al., NEJ, DOI: 10.1056/EPITyw6421191) Blood STRUCTURE OF RIGHT UPPER LIMB / Unknown Venipuncture / Unknown 06/28/2022 2:40 PM GEM CARVER 06/28/2022 2:52 PM GEM CARVER Pastor Marino MD LAB - BLO OD ORDERABLES LABORATORY [facility] Acute Care Lab [address] [facility] (1st floor, no room number) [place] [address], [facility] [[email or web address]] [phone] * TSH- (03/11/2004 9:36 AM CDT) TSH 4.10 0.4 - 5.0 mU/L [facility] 03/11/2004 9:36 AM CDT 03/11/2004 9:41 AM CDT Amor Montgomery MD LABORATORY [facility] from Last 3 Months or Most Recently Relevant to Health Maintenance Advance Directives For more information, please contact: [phone] * Full Code (Latest Code Status on File) Date Activated Date Inactivated Comments 10/03/2015 3:40 PM 06/28/2022 2:10 PM * Full Code Date Activated Date Inactivated Comments 10/01/2015 6:21 PM 10/03/2015 3:40 PM Care Teams Jewelry Maker Relationship Specialty Start Date End Date Harriet Haley MD [address] [facility] [address] [place] [address] PCP - General Physician Visitor Services Information Assistant 10/01/15
--- OUTSIDE RECORDS SUMMARY | 2024-03-16 10:56 | XMS_ITS | Encounter Summary ---
Author Organization [email or web address] Address [address], [place] [address] Care Team Providers Care Police Aide Name Role Phone Needs Pcp, Assignment Primary Care Provider [phone] Encounter Details Date Type Department Care Team (Late st Contact Info) Description 12/12/2023 delfina Nickerson [phone] Social History Tobacco Use Types Packs/Day Years [...] From Provider Santosh Samuel,Thank you for using [facility]! I?? sorry to hear that you're having [...] Follow Up Request. Feel better soon!Felisa Shelton, HOT BRAIDER Treatment Plan Because you have a bacterial infection in your bladder, I sent a prescription for an antibiotic to [facility] (24HRS). I also listed a few [...] of cool water. Refills: None Sent To: [facility] ([facility]) [address] [place], [place] [address] Treatment Plan Self Care Tip Topics What [...] infections. To share notes from your recent [facility] visit with your provider, click Share My Records in your treatment plan. [facility] can provide diagnosis and treatment for [...] oral Augmentin (amoxicillin-pot clavulanate), oral [facility] We are an online clinic open 02/03. If you have any questions or comments about this visit, please call or email [email or web address]. documented in this encounter Plan of Treatment Upcoming Encounters Date Type Department Care Team (Late st Contact Info) Description 03/18/2024 3:00 PM CDT Appointment [place] [address] Family Medicine [address] [place] [address] Federica Pittman, DIRECTOR CORPORATE SECURITY, FOREX TRADER [address] [place], [place] [address] documented as of this encounter Visit Diagnoses Diagnosis Urinary tract infection, site not specified documented in this encounter Care Teams Police Aide Relationship Specialty Start Date End Date Needs Pcp, Assignment [place], [place] [address] PCP - General 11/15/21 documented as of this encounter
--- OUTSIDE RECORDS SUMMARY | 2024-03-16 10:56 | XMS_ITS | Encounter Summary ---
Author Organization [facility] Address [address] [place] [address] Care Team Providers Care Electrical Appliance Mechanic Name Role Phone Needs Pcp, Assignment Primary Care Provider [phone] Encounter Details Date Type Department Care Team (Late st Contact Info) Description 02/17/2024 Telephone Careline [address] [place], [place] [phone] Juan J Allen Social History Tobacco Use [...] Info) Description 03/18/2024 3:00 PM CDT Appointment [place] [address] Family Medicine [address] [place] [address] Federica Pittman, GAS PUMPING STATION HELPER, PAINTINGS RESTORER [address] [place] [address] documented as of this encounter Visit Diagnoses Not on filedocumented in this encounter Care Teams Electrical Appliance Mechanic Relationship Specialty Start Date End Date Needs Pcp, [place] [address] PCP - General 11/15/21 documented as of this encounter
--- OUTSIDE RECORDS SUMMARY | 2024-03-16 10:56 | XMS_ITS | Encounter Summary ---
Author Organization [facility] Address [address] [place] [address] Care Team Providers Care Waterway Traffic Checker Name Role Phone Harriet Haley MD Primary Care Provider [phone] Reason for Visit * Reason Onset Date Comments Procedure 2015 LESI Encounter Details Date Type Department Care Team (Late st Contact Info) Description 2015 Telephone [facility] Pain Management [place] [id number] [place] [address] [address] [place] [address] Pain Management Program, [facility] Procedure (LESI) Social History Tobacco Use [...] 9:32 AM CDT Called pt to schedule LULII lvm. Babita Rosado Pipeline Engineer [facility] * Telephone Encounter - Babita Rosado - 2015 8:37 AM CDT Called pt to schedule LULIIMELVINMHeraclio Rosado Pipeline Engineer [facility] * Telephone Encounter - Alfreda Segura - 2015 8:14 AM CDT Order received from [facility] for TF LESI. Order scanned to telephone encounter, routing to scheduling coordinators to contact patient. Alfreda Segura Pipeline Engineer [facility] documented in this encounter Plan of Treatment Not on file documented as of this encounter Visit Diagnoses Not on filedocumented in this encounter Care Teams Waterway Traffic Checker Relationship Specialty Start Date End Date Harriet Haley MD [address] [facility] [address] [place] [address] PCP - General Physician Bench Worker Apprentice 10/01/15 documented as of this encounter
--- OUTSIDE RECORDS SUMMARY | 2024-03-16 10:56 | XMS_ITS | Encounter Summary ---
Author Organization [facility] Address [address], [place] [address] Care Team Providers Care Mac Developer Name Role Phone Needs Pcp, Assignment Primary Care Provider [phone] Reason for Visit * Reason Comments KNEE PAIN Encounter Details Date Type Department Care Team (Late st Contact Info) Description 02/17/2024 Nurse Triage [facility] [address] [place], [place] [phone] Needs Pcp, [place] [address] KNEE PAIN Social History Tobacco Use Types [...] hours of pain medicine Protocols used: Knee [id number] documented in this encounter Plan of Treatment Upcoming Encounters Date Type Department Care Team (Late st Contact Info) Description 03/18/2024 3:00 PM CDT Appointment [place] [address] [facility] [address] [place] [address] Federica Pittman, SHIPFITTERS SUPERVISOR, CHEF KITCHEN MANAGER [address] [place] [address] documented as of this encounter Visit Diagnoses Not on filedocumented in this encounter Care Teams Mac Developer Relationship Specialty Start Date End Date Needs Pcp, [place] [address] PCP - General 11/15/21 documented as of this encounter
== END 2024-03-15 15:04 | disposition home or self-care (01) ==
LOC: NFLDREF 03-16 10:55
PROVIDERS: PCP Nurse Practitioner Family; Referring Provider Nurse Practitioner Family; Visit Provider Nurse Practitioner Family
DX: R35.0 Frequency of micturition (principal); R82.90 Unspecified abnormal findings in urine; Z87.440 Personal history of urinary (tract) infections
CPT/HCPCS: 87086; 87186

== ENCOUNTER 2024-06-10 13:58 | Outpatient (CLI) | payer OTHER, SELFPAY ==
--- OUTSIDE RECORDS SUMMARY | 2024-06-14 07:06 | XMS_ITS | Encounter Summary ---
Author Organization [facility] Address [address], [place] [address] Care Team Providers Care Blender / Cook Name Role Phone Needs Pcp, Assignment Primary Care Provider [phone] Encounter Details Date Type Department Care Team (Late st Contact Info) Description 05/31/2024 Notes/Orders [place] [address] Family Medicine [address] [place] [address] Federica Pittman, MILK TESTER, ASSOCIATE PROFESSOR OF THEATRE [address] [place] [address] Hypothyroidism, unspecified type (HRC) (Primary Dx) Social History Tobacco Use Types Packs/Day Years Used Date Smoking Tobacco: Former Cigarettes 1 20 Smokeless Tobacco: Never Alcohol Use Standard Drinks/Week Comments Yes 0 (1 standard drink = 0.6 oz pur e alcohol) Not very often PHQ-2 Answer Date Recorded PHQ-2 Score 2 05/26/2024 PRAPARE - Transportation Answer Date Re corded In the past 12 months, has l ack of transportation kept you from medical appointments or from getting medications? No 05/10 In the past 12 months, has l ack of transportation kept you from meetings, work, or from getting things needed for daily living? No 05/26/2024 Housing Stability Vital Sign Answer Alejandro e Recorded In the last 12 months, was t here a time when you were not able to pay the mortgage or rent on time? No 05/26/2024 Number of Times Moved in the Last Year Not on fi le 05/26/2024 At any time in the past 12 m [facility], were you homeless or living in a [facility] (including now)? No 05/26/2024 Financial Resource Strain Answer Date R ecorded [...] as of this encounter Plan of Treatment Upcoming Encounters Date Type Department Care Team (Late st Contact Info) Description 06/16/2024 3:30 PM DOWN FILLER Appointment [place] [address] Dermatology [address] [place] [address] Milly Brown MD [address] [place], [place] [address] documented as of this encounter Visit Diagnoses Diagnosis Hypothyroidism, unspecified type (HRC)- Primary documented in this encounter Care Teams Blender / Cook Relationship Specialty Start Date End Date Needs Pcp, Assignment [place], [place] [address] PCP - General 11/15/21 documented as of this encounter
--- OUTSIDE RECORDS SUMMARY | 2024-06-14 07:06 | XMS_ITS | Encounter Summary ---
[facility] Organization [facility] Address [address], [place] [address] Care Team Providers Care Lab Aid Name Role Phone Needs Pcp, Assignment Primary Care Provider [phone] Reason for Referral * Procedure/Equipment (Routine) - Incomplete Specialty Diagnoses / Procedures Referred By Nahum travis Referred To Contact Diagnoses Encounter for screening mammogram for malignant neoplasm of breast Procedures MM Mammogram Screening Bilat W CAD Federica Pittman APRN, CNP [address] [place] [address] Referral ID Status Reason Start Date Expiration Date V isits Requested Visits Authorized [id number] Incomplete 05/26/2024 08/25/2025 1 1 * Procedure/Equipment (Routine) - New Request Specialty Diagnoses / Procedures Referred By Nahum travis Referred To Contact Diagnoses Screening for colon cancer Procedures Colonoscopy Screening Federica Pittman APRN SECOND MATE [address] [place] [address] Referral ID Status Reason Start Date Expiration Date V isits Requested Visits Authorized [id number] New Request 05/26/2024 05/26/2026 1 1 Reason for Visit * Reason Comments Annual Exam Encounter Details Date Type Department Care Team (Latest Contact Info) Description 05/26/2024 1:30 PM CDT Office Visit [facility] [address] [facility] [address] [place] [phone] Federica Pittman, LICENSED CLINICAL SOCIAL WORKER, SECOND MATE [address] [place] [address] Well woman exam (no gynecological exam) (Primary Dx); SVT (supraventricular tachycardia) (HRC); Hypertension, unspecified type (HRC); Hyperlipidemia, unspecified hyperlipidemia type (HRC); Hypothyroidism, unspecified type (HRC); Screening for colon cancer; Screening for diabetes mellitus; Need for hepatitis C screening test; Encounter for screening mammogram for malignant neoplasm of breast Social History Tobacco Use Types Packs/Day Years Used Date Smoking Tobacco: Former Cigarettes 1 20 Smokeless Tobacco: Never Tobacco Cessation:Counseling Given: Not Answered Alcohol Use Standard Drinks/Week Comments Yes 0 [...] any time in the past 12 [facility], were you homeless or living in a fpc (including now)? No 05/26/2024 Financial Resource Strain [...] Sign Reading Time Taken Comments Blood Pressure 121/71 05/26/2024 1:14 PM CDT Pulse 74 05/26/2024 1:14 PM CDT Temperature - - Respiratory Rate - - Oxygen Saturation - - Inhaled Oxygen Concentration - - Weight 105.2 kg (232 lb) 05/26/2024 1:14 PM CDT Height 172.7 cm (5' 8) 05/26/2024 1:14 PM CDT Body Mass Index 35.28 05/26/2024 1:14 PM CDT documented in this encounter Progress Notes * Federica Pittman, LICENSED CLINICAL SOCIAL WORKER, SECOND MATE - 05/26/2024 1:30 PM CDT Subjective: Patient ID: Lizzie He is a 58 y.o. year old female Chief Complaint: Preventive Exam & Pelvic HPI This is a 58-year-old female here today for an annual physical exam. Medical history is significant for CVA, HTN, SVT, hyperlipidemia, hypothyroidism, depression, anxiety, fibromyalgia, and chronic pain. She is followed by a psychiatrist at [facility] and [facility]. Xaviereeds various medication refills today. Past Medical History: Diagnosis Date Gastroesophageal reflux disease Hyperlipidemia (HRC) Hypothyroidism (HRC) Past Surgical History: Procedure Laterality Date SECTION CHOLECYSTECTOMY HX APPENDECTOMY HYSTERECTOMY SPINE SURGERY Family History Problem Relation Name Age of Onset Depression Mother Alice High Cholesterol Mother Alice Asthma Father Bill Diabetes Father Bill High Cholesterol Father Bill Hypertension Father Bill Cancer Paternal Uncle Teto Dad's twin Outpatient Medications Prior to Visit Medication Sig Dispense Refill ARIPiprazole (ABILIFY) 2 MG tablet Take 1 Tablet (2 mg) by mouth daily. buPROPion (WELLBUTRIN XL) 150 MG 24 hour release tablet Take 1 Tablet (150 mg) by mouth daily. cetirizine (ZYRTEC) 10 MG tablet Take 1 Tablet (10 mg) by mouth daily. 30 Tablet 0 desvenlafaxine (PRISTIQ) 100 MG 24 hour release tablet Take 1 Tablet (100 mg) by mouth daily. gabapentin (NEURONTIN) 300 MG capsule Take 1 Capsule (300 mg) by mouth three times a day. levothyroxine (SYNTHROID) 112 MCG tablet Take 1 Tablet (112 mcg) by mouth daily. metroNIDAZOLE (METROGEL) 1 % gel Apply topically daily. Periorbital dermatitis, 60 g 3 mupirocin (BACTROBAN) 2 % ointment Apply topically three times a day. triamcinolone acetonide (KENALOG) 0.1 % cream Apply topically three times a day. cephalexin (KEFLEX) 500 MG capsule Take 1 Capsule (500 mg) by mouth two times a day. chlorthalidone (HYGROTON) 25 MG tablet Take 1 Tablet (25 mg) by mouth daily. ciprofloxacin (CIPRO) 250 MG tablet Take 1 Tablet (250 mg) by mouth two times a day. ciprofloxacin (CIPRO) 500 MG tablet Take 1 Tablet (500 mg) by mouth two times a day. cyclobenzaprine (FLEXERIL) 10 MG tablet Take by mouth. fosfomycin (MONUROL) 3 g packet Take 1 Packet (3 g) by mouth once. hydroCHLOROthiazide (ORETIC) 25 MG tablet Take 1 Tablet (25 mg) by mouth daily. Levothyroxine Sodium Take 88 mcg by mouth. Phentermine HCl 30 MG capsule Take 1 Capsule (30 mg) by mouth every morning. rosuvastatin (CRESTOR) 20 MG tablet Take 1 Tablet (20 mg) by mouth daily at bedtime. valACYclovir (VALTREX) 1 g tablet Take 1 Tablet (1,000 mg) by mouth three times a day. verapamil (CALAN SR) 120 MG controlled release tablet Take 1 Tablet (120 mg) by mouth daily. No facility-administered medications prior to visit. 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 Non-smoker. Several alcoholic beverages every few weeks. . 4 children. Habits Exercise: Enjoys walking Nutrition: Meals mostly prepared at home Health Care Maintenance Discussed age appropriate health screening: Pap last performed: No longer indicated, s/p hysterectomy for benign reasons Mammogram: 03/2023, repeat 1 year. Discussed recommendation for breast cancer screening, recommend body awareness. Colonoscopy: Completed 4 years, overdue. Bone Density Scan: Recommended age 65; Or, <65 with clinical risk factors for fracture: Advancing age Previous fracture Glucocorticoid therapy Parental history of hip fracture Low body weight Current cigarette smoking Excessive alcohol consumption Rheumatoid arthritis Immunization History Administered Date(s) Administered Flu Vac (18-64 Yrs), Intradermal 05/07/2020 Flu Vac (3+ yrs) 06/12/2008, 06/11/2009, 06/10/2010, 05/05/2011, 05/10/2012, 05/12/2013, 05/24/2013, 04/27/2017 Flu Vac Preserv Free (3+yrs) 05/04/2024 Fluzone Qiv Multidose Vial 0.25 (6-35 Mos) 06/15/2014, 05/05/2018 [id number] 06/28/2009 Influenza IIV4 (Quadrivalent) 0.5mL (80847) 06/28/2009, 06/10/2010, 05/05/2011, 05/10/2012, 05/12/2013, 06/15/2014, 06/18/2015, 06/29/2015, 07/06/2016, 04/27/2017, 05/05/2018, 05/02/2019, 05/07/2020,04/29/2021, 04/30/2022, 05/04/2023 Influenza, Unspecified Formulation 05/10/2010, 06/29/2015, 07/09/2016 Moderna COVID-19 12+ 06/03/2023 PCV13 (Prevnar) 07/20/2013 PPSV23 (Pneumovax) 01/01/2011, 07/20/2013 Pfizer COVID-19 12+ 05/04/2024 Pfizer [facility] 12+ Purple Top 08/08/2020, 08/29/2020, 05/14/2021 Td 09/13/2004 Tdap 10/09/2014 Zoster RZV (Shingrix) 03/23/2024 Review of Systems A comprehensive review of systems was negative. Objective: Physical Exam BP 121/71 (BP Location: Left Arm, BP Cuff Size: Regular) Pulse 74 Ht 5' 8 (1.727 m) Wt 232 lb (105.2 kg) BMI 35.28 kg/m?? General: Alert and oriented female in no acute distress Head: Normocephalic, atruamatic Eyes: Normal external eye exam Ears: Normal external ear and canal, normal TM's Nose: Nasal mucosa pink and moist Throat: Oropharynx without lesions or exudate, thyroid midline without mass or tenderness, no adenopathy Upper Extremities: FROM with good strength, no lesions or deformities. Lungs: Clear to auscultation bilaterally Heart: RRR, nomal S1 S2, no murmur Breasts: Normal appearance, no masses or tenderness Abdomen: Bowel sounds present, no hepatomegaly or splenomegaly, no masses or tenderness Pelvic: Deferred Lower Extremities: FROM, normal gait without edema, lesions, or deformity. Skin: Normal color, texture, and turgor, no rashes or lesions Neurologic: Normal coordination and gait, patellar reflexes present 2+, CN II- XII intact Psychiatric: Alert & oriented with normal affect and insight. Patient does not appear depressedor anxious. Assessment & Plan: Lizzie was seen today for annual exam. Diagnoses and all orders for this visit: Well woman exam (no gynecological exam) Pap smear no longer indicated. Mammogram and colonoscopy ordered. Discussed current recommendations for exercise; at least 30 minutes 3-5 days per week. Discussed the benefits of a nutritionally balanced diet with fruit, vegetables, lean protein, high fiber, and limited added sugars. SVT (supraventricular tachycardia) (HRC) - verapamil (CALAN SR) 120 MG controlled release tablet; Take 1 Tablet (120 mg) by mouth daily. - verapamil (VERELAN) 240 MG 24 hour release capsule; Take 1 Capsule (240 mg) by mouth every evening. Hypertension, unspecified type (HRC) - chlorthalidone (HYGROTON) 25 MG tablet; Take 1 Tablet (25 mg) by mouth daily. - Comp Metabolic Panel; Future Hyperlipidemia, unspecified hyperlipidemia type (HRC) - Lipid Panel and Direct LDL(If Needed); Future - rosuvastatin (CRESTOR) 20 MG tablet; Take 1 Tablet (20 mg) by mouth daily at bedtime. Hypothyroidism, unspecified type (HRC) - TSH; Future Screening for cholesterol level Screening for colon cancer - Colonoscopy Screening; Future Screening for diabetes mellitus - Hgb A1C (Expected: Now) - Collect in Lab; Future Need for hepatitis C screening test - Hepatitis C Antibody, with Reflex; Future Encounter for screening mammogram for malignant neoplasm of breast - MM Mammogram Screening Bilat W CAD; Future Return to clinic in 1 year for routine physical exam. documented in this encounter Plan of Treatment Upcoming Encounters Date Type Department Care Team (Late st Contact Info) Description 06/16/2024 3:30 PM E/M ENGINEER Appointment [place] [id number] D[facility]atology [address] [place] [address] Milly Brown MD [address] [place], [place] [id number] Scheduled Orders Name Type Priority Associated Diagnoses Orde r Schedule Colonoscopy Screening GI Routine Screening for colon cancer 1 Occurrences starting 05/26/2024 until 05/26/2026 MM Mammogram Screening Bilat W CAD Imaging New Routine Encounter for screening mammogram for malignant neoplasm of breast Expected: 05/26/2024 (Approximate), Expires: 05/26/2025 documented as of this encounter Results * Comp Metabolic Panel (05/26/2024 3:42 PM CDT) Sodium 137 136 - 145 mmol/L 05/27/2024 10:50 AM [facility] Potassium 3.5 3.5 - 5.1 mmol/L 05/27/2024 10:50 AM [facility] Chloride 99 98 - 109 mmol/L 05/27/2024 10:50 AM [facility] CO2 27 20 - 29 mmol/L 05/27/2024 10:50 AM [facility] Anion Gap 11 6 - 16 mmol/L 05/27/2024 10:50 AM [facility] Calcium 9.5 8.4 - 10.4 mg/dL 05/27/2024 10:50 AM [facility] BUN 12 7 - 26 mg/dL 05/27/2024 10:50 AM [facility] Creatinine 1.01 0.55 - 1.02 mg/dL 05/27/2024 10:50 AM [facility] Alkaline Phosphatase 117 40 - 150 U/L 05/27/2024 10:50 AM [facility] AST (SGOT) 40 10 - 40 U/L 05/27/2024 10:50 AM [facility] ALT (SGPT) 45 <=55 U/L 05/27/2024 10:50 AM [facility] Bilirubin, Total 0.4 0.2 - 1.2 mg/dL 05/27/2024 10:50 AM [facility] Protein, Total 7.9 6.4 - 8.3 g/dL 05/27/2024 10:50 AM [facility] Albumin 3.9 3.5 - 5.0 g/dL 05/27/2024 10:50 AM [facility] Glucose 97 70 - 100 mg/dL 05/27/2024 10:50 AM [facility] Comment:The given reference range is for the fasting state. Non-fasting reference range for glucose is 70 - 180 mg/dL. GFR, Estimated >60 >60 mL/min/1.7 3m2 05/27/2024 10:50 AM [facility] Hours Fasting 21.5 8 - 12 Hours 05/27/2024 10:50 AM [facility] Blood Venipuncture / Unknown 05/26/2024 3:42 PM CDT 05/26/2024 3:42 PM CDT Federica Pittman APRN, CNP LAB_1 [facility] [address] [place] [address] [address] [place] [address] * (ABNORMAL) Hgb A1C (Expected: Now) - Collect in Lab (05/26/2024 3:42 PM CDT) Hemoglobin A1C 5.9(H) <=5.6 % 05/27/2024 9:55 AM [facility] Estimated Average Glucose (Calc) 123 < 117 mg/dL 05/27/2024 9:55 AM [facility] Comment:Estimated average gl ucose (eAG) converts A1c into glucose units (mg/dL) and estimates average glucose over the past approximately 3 months. The eAG reference interval (<117 mg/dL) corresponds to an A1c of <5.7%. Blood Venipuncture / Unknown 05/26/2024 3:42 PM CDT 05/26/2024 3:42 PM CDT Narrative [facility] - 05/27/2024 9:55 AM CDT For patients not previously diagnosed with diabetes: 5.7-6.4%: Increased risk for diabetes 6.5% and greater: Diagnostic for diabetes For patients diagnosed with diabetes: <8.0%: Goal of therapy for ages 18-75 Clinicians may recommend a higher or lower goal for specific individuals. Federica Pittman APRN, CNP LAB_1 Performing Organization Address City/[facility]/ZIP Co de Phone Number [facility] [address] * TSH (05/26/2024 3:42 PM CDT) Pathologist [facility] TSH, Sensitive 3.59 0.30 - 4.50 uIU/mL 05/26/2024 9:12 PM CDT [facility] Blood Venipuncture / Unknown 05/26/2024 3:42 PM CDT 05/26/2024 3:42 PM CDT Federica Pittman APRN, CNP LAB_1 Performing Organization Address [facility] de Phone Number [facility] [address] [place] [address] * Hepatitis C Antibody, with Reflex (05/26/2024 3:42 PM CDT) [facility] Hepatitis C Antibody Negative (Non Reactive) Negative (Non Reactive) 05/26/2024 9:12 PM CDT [facility] Comment:Antibodies to HCV no t detected. Does not exclude the possiblity of exposure to HCV. Blood Venipuncture / Unknown 05/26/2024 3:42 PM CDT 05/26/2024 3:42 PM CDT Federica Pittman APRN, CNP LAB_1 Performing Organization Address [facility] Co de Phone Number [facility] [address] [place] [address] * (ABNORMAL) Lipid Panel and Direct LDL(If Needed) (05/26/2024 3:42 PM CDT) Cholesterol 321(H) 0 - 199 mg/dL 05/27/2024 10:50 AM CDT [facility] Triglyceride 136 <=149 mg/dL 05/27/2024 10:50 AM CDT [facility] HDL Cholesterol 65 >=40 mg/dL 4 10:50 AM CDT [facility] LDL, Calculated 229(H) <130 mg/dL 4 10:50 AM CDT [facility] Non HDL Chol, Calculated 256(H) <=159 mg/dL 05/27/2024 10:50 AM CDT [facility] Cholesterol/HDL Ratio 4.9 <=5.0 05/27/2024 10:50 AM CDT [facility] Hours Fasting 21.5 8 - 12 Hours 05/27/2024 10:50 AM [facility] Blood Venipuncture / Unknown 05/26/2024 3:42 PM CDT 05/26/2024 3:42 PM CDT Federica Pittman APRN, CNP LAB_1 [facility] [address] [place] [address], [facility] [address] [place] [address] documented in this encounter Visit Diagnoses Diagnosis Well woman exam (no gynecological exam)- Primary Routine general medical examination at a health care facility SVT (supraventricular tachycardia) (HRC) Other specified cardiac dysrhythmias Hypertension, unspecified type (HRC) Hyperlipidemia, unspecified hyperlipidemia type (HRC) Hypothyroidism, unspecified type (HRC) Screening for colon cancer Special screening for malignant neoplasms, colon Screening for diabetes mellitus Need for hepatitis C screening test Special screening examination for other specified viral diseases Encounter for screening mammogram for malignant neoplasm of breast Other screening mammogram documented in this encounter Care Teams Lab Aid Relationship Specialty Start Date [place] [address] PCP - General 11/15/21 documented as of this encounter
--- OUTSIDE RECORDS SUMMARY | 2024-06-14 07:06 | XMS_ITS | Encounter Summary ---
Author Organization [facility] Address [address], [place] [address] Care Team Providers Care Concrete Bucket Hooker Name Role Phone Needs Pcp, Assignment Primary Care Provider [phone] Encounter Details Date Type Department Care Team (Late Contact Info) Description 05/23/2024 Notes/Orders [facility] [address] [place] [id number] Noah Moreno MD [address] [place] [phone] Routine general medical examination at health care facility Social History Tobacco Use Types Packs/Day Years Used Date Smoking Tobacco: Former Cigarettes 1 20 Smokeless Tobacco: Never Alcohol Use Standard Drinks/Week Comments Yes 0 (1 standard drink = 0.6 oz pur e alcohol) Not very often PHQ-2 Answer Date Recorded PHQ-2 Score 0 [...] Encounters Date Type Department Care Team (Late Contact Info) Description 06/16/2024 3:30 PM MAINTAINER CENTRAL OFFICE Appointment [place] [address] D[address]at[address] [place] [address] Milly Brown MD [address] [place] [address] Pending Results Name Type Priority Associated Diagnoses Date /Time DNA Analysis Discrete Sequence Variation Panel (Saliva) (Patient Collected) Lab Routine Routine general medical examination at [facility] 05/23/2024 6:55 AM CDT documented as of this encounter Visit Diagnoses Diagnosis Routine general medical examination at [facility] facility Routine general medical examination at a [facility] documented in this encounter Care Teams Concrete Bucket Hooker Relationship Specialty Start Date End Date Needs Pcp, [place] [address] PCP - General 11/15/21 documented as of this encounter
--- OUTSIDE RECORDS SUMMARY | 2024-06-14 07:06 | XMS_ITS | Encounter Summary ---
Author Organization [facility] Address [address] [address] Care Team Providers Care Highway Maintenance Supervisor Name Role Phone Needs Pcp, Assignment Primary Care Provider [phone] Encounter Details Date Type Department Care Team (Late Contact Info) Description 03/18/2024 3:30 PM CDT Lab Visit [facility] [address] [place] [address] Encounter for long-term (current) use of medications Social History Tobacco Use Types Packs/Day Years [...] (Late Contact Info) Description 06/16/2024 3:30 PM CONVEYOR BELT INSTALLER Appointment [place] [address] Dermatology [address] [place] [address] Milly Brown MD [address] [place] [address] documented as of this encounter Procedures Procedure Name Priority Date/Time Associated Diagnosis Comments THC (MARIJUANA) METAB CONFIRM, URINE Routine 03/18/2024 3:24 PM CDT Encounter for long-term (current) use of medications RAPID PAIN MANAGEMENT PANEL URINE Routine 03/18/2024 3:24 PM CDT Encounter for long-term (current) use of medications documented in this encounter Results * (ABNORMAL) THC (Marijuana) Metab Confirm, Urine (03/18/2024 3:24 PM CDT) Marijuana Metabolite, urine Confirmed Positive(A) Not Detected 03/23/2024 10:09 AM CDT [facility] Urine Non-blood Collection / Unknown 03/18/2024 3:24 PM CDT 03/18/2024 3:24 PM CDT Pending sale to [facility] - 03/23/2024 10:09 AM CDT The absence of expected drug(s) and/or drug metabolite(s) may indicate non-compliance, inappropriate timing of specimen collection relative to drug administration, poor drug absorption, diluted/adulterated urine or limitations of testing. The concentration must be greater than or equal to the cutoff concentration to be reported as positive. For medical purposes only: not valid for forensic, legal, or employment use. Analysis by LC-MS/MS Liquid Chromatography/Mass Spectrometry. This test was developed and its performance characteristics validated by [facility]. It has not been cleared nor approved by the FDA. Federica Pittman APRN, WATER POLLUTION SPECIALIST LAB_1 [facility] [address] [place] [address], [facility] * (ABNORMAL) Rapid Pain Management Panel Urine No (03/18/2024 3:24 PM CDT) Amphetamines Screen Not Detected Not Detected 03/18/2024 8:58 PM CDT [facility] Is patient prescribed amphetamines (i.e. Adderall)? No 03/18/2024 8:58 PM CDT [facility] Is the patient prescribed methylphenidate (i.e. Ritalin)? No 03/18/2024 8:58 PM CDT [facility] Barbiturates Screen Not Detected Not Detected 03/18/2024 8:58 PM CDT [facility] Is patient prescribed barbiturates? No 03/18/2024 8:58 PM CDT [facility] Benzodiazepines Screen Not Detected Not Detected 03/18/2024 8:58 PM CDT [facility] Is patient prescribed benzodiazepine? No 03/18/2024 8:58 PM CDT [facility] Buprenorphine Screen Not Detected Not Detected 03/18/2024 8:58 PM CDT [facility] Is patient prescribed buprenorphine? No 03/18/2024 8:58 PM CDT [facility] Cocaine Metabolite Screen Not Detected Not Detected 03/18/2024 8:58 PM CDT [facility] Methadone Screen Not Detected Not Detected 03/18/2024 8:58 PM CDT [facility] Is patient prescribed methadone? No 03/18/2024 8:58 PM CDT [facility] Opiates Screen Not Detected Not Detected 03/18/2024 8:58 PM CDT [facility] Is patient prescribed opiates? No 03/18/2024 8:58 PM CDT [facility] Oxycodone Screen Not Detected Not Detected 03/18/2024 8:58 PM CDT [facility] Is patient prescribed oxycodone? No 03/18/2024 8:58 PM CDT [facility] Is patient prescribed THC? No 03/18/2024 8:58 PM CDT [facility] Phencyclidine (PCP) Screen Not Detected Not Detected 03/18/2024 8:58 PM CDT [facility] THC (Marijuana) Metab Screen Presumptive Positive(A) Not Detected 03/18/2024 8:58 PM CDT [facility] Creatinine, Urine, Random 30 >20 mg/dL 03/18/2024 8:58 PM CDT [facility] Urine Non-blood Collection / Unknown 03/18/2024 3:24 PM CDT 03/18/2024 3:24 PM CDT Narrative [facility] - 03/18/2024 8:58 PM CDT The absence of expected drug(s) and/or drug metabolite(s) may indicate non-compliance, inappropriate timing of specimen collection relative to drug administration, poor drug absorption, diluted/adulterated urine or limitations of testing. The concentration must be greater than or equal to the cutoff concentration to be reported as positive. For medical purposes only: not valid for forensic, legal, or employment use. Federica Pittman APRN, CNP LAB_1 [facility] [address] [place], [place] [address] [address] [place] [address], [facility] documented in this encounter Visit Diagnoses Diagnosis Encounter for long-term (current) use of medications Encounter for long-term (current) use of other medications documented in this encounter Care Teams Highway Maintenance Supervisor Relationship Specialty Start Date End Date Needs Pcp, [place] [address] PCP - General 11/15/21 documented as of this encounter
--- OUTSIDE RECORDS SUMMARY | 2024-06-14 07:06 | XMS_ITS | Encounter Summary ---
Author Organization [facility] Address [address] [place] [address] Care Team Providers Care Field Pipe Lines Supervisor Name Role Phone Amor Montgomery MD Primary Care Provider [phone] Nissa Cassidy DO Primary Care Provider + Harriet Haley MD Primary Care Provider [phone] Encounter Details Date Type Department Care Team (Late st Contact Info) Description 01/27/[address] [place] [address] Amor Montgomery MD [facility] [address] [place] [address] ER ENCOUNTER (Primary Dx) Social History Tobacco Use Types Packs/Day Years Used Date Smoking Tobacco: Former Cigarettes Q uit: 09/15/2015 Smokeless Tobacco: Never Alcohol Use Standard Drinks/Week Comments Yes 0 (1 standard drink = 0.6 oz pur e alcohol) SMALL Comments No Sex and Gender Information Value Date Recorded Sex Assigned at Not on file Legal Sex Female 3:12 AM DIGITAL PRESS OPERATOR Gender Identity Not on file Sexual Orientation Not on file documented as of this encounter Plan of Treatment Not on file documented as of this encounter Visit Diagnoses Diagnosis ER ENCOUNTER- Primary documented in this encounter Care Teams Field Pipe Lines Supervisor Relationship Specialty Start Date End Date Amor Montgomery MD [facility] [address] [place] [address] PCP - General 09/24/01 05/05/13 Nissa Cassidy DO [facility] [facility] [id number] [place] [address] PCP - General Internal Medicine 05/06/13 09/30/15 Harriet Haley MD [address] [place] [address] PCP - General Physician Acid Dipper 10/01/15 documented as of this encounter
--- OUTSIDE RECORDS SUMMARY | 2024-06-14 07:06 | XMS_ITS | Encounter Summary ---
Author Organization [employer] Address [address] [address] Care Team Providers Care Boxing Trainer Name Role Phone Needs Pcp, Assignment Primary Care Provider [phone] Encounter Details Date Type Department Care Team (Late st Contact Info) Description 05/26/2024 3:40 PM CDT Lab Visit [facility] [address] [place] [address] Hyperlipidemia, unspecified hyperlipidemia type (HRC); Need for hepatitis C screening test; Hypothyroidism, unspecified type (HRC); Screening for diabetes mellitus; Hypertension, unspecified type (HRC) Social History Tobacco Use Types Packs/Day [...] any time in the past 12 m [facility], were you homeless or living in a fdc (including now)? No 05/26/2024 Financial Resource Strain [...] st Contact Info) Description 06/16/2024 3:30 PM PRINTING TECHNICIAN Appointment [place] [address] Dermatology [address] [place], [place] [phone] Milly Brown MD [address] [place], [place] [phone] documented as of this encounter Procedures Procedure Name Priority Date/Time Associated Diagnosis Comments LIPID PANEL & DIRECT LDL (IF NEEDED) Routine 05/26/2024 3:42 PM CDT Hyperlipidemia, unspecified hyperlipidemia type (HRC) COMPREHENSIVE METABOLIC PANEL Routine 05/26/2024 3:42 PM CDT Hypertension, unspecified type (HRC) TSH, SENSITIVE Routine 05/26/2024 3:42 PM CDT Hypothyroidism, unspecified type (HRC) HEPATITIS C ANTIBODY, WITH REFLEX Routine 05/26/2024 3:42 PM CDT Need for hepatitis C screening test HGB A1C Routine 05/26/2024 3:42 PM CDT Screening for diabetes mellitus documented in this encounter Results * Comp Metabolic Panel (05/26/2024 3:42 PM CDT) Sodium 137 136 - 145 mmol/L 05/27/2024 10:50 AM [facility] Potassium 3.5 3.5 - 5.1 mmol/L 05/27/2024 10:50 AM [facility] Chloride 99 98 - 109 mmol/L 05/27/2024 10:50 AM [facility] CO2 27 20 - 29 mmol/L 05/27/2024 10:50 AM [facility] Anion Gap 11 6 - 16 mmol/L 05/27/2024 10:50 AM [facility] Calcium 9.5 8.4 - 10.4 mg/dL 05/27/2024 10:50 AM [facility] BUN 12 7 - 26 mg/dL 05/27/2024 10:50 AM [facility] Creatinine 1.01 0.55 - 1.02 mg/dL 05/27/2024 10:50 AM [facility] Alkaline Phosphatase 117 40 - 150 U/L 05/27/2024 10:50 AM [facility] AST (SGOT) 40 10 - 40 U/L 05/27/2024 10:50 AM [facility] ALT (SGPT) 45 <=55 U/L 05/27/2024 10:50 AM [facility] Bilirubin, Total 0.4 0.2 - 1.2 mg/dL 05/27/2024 10:50 AM [facility] Protein, Total 7.9 6.4 - 8.3 g/dL 05/27/2024 10:50 AM [facility] Albumin 3.9 3.5 - 5.0 g/dL 05/27/2024 10:50 AM [facility] Glucose 97 70 - 100 mg/dL 05/27/2024 10:50 AM [facility] Comment:The given reference range is for the fasting state. Non-fasting reference range for glucose is 70 - 180 mg/dL. GFR, Estimated >60 >60 mL/min/1.7 3m2 05/27/2024 10:50 [facility] Hours Fasting 21.5 8 - 12 Hours 05/27/2024 10:50 AM [facility] Blood Venipuncture / Unknown 05/26/2024 3:42 PM CDT 05/26/2024 3:42 PM CDT Federica Estela Toya TORRES CNP LAB_1 [facility] [address] [place] [address] [address] [place] [address] * (ABNORMAL) Hgb A1C (Expected: Now) - Collect in Lab (05/26/2024 3:42 PM CDT) Pathologist [facility] Hemoglobin A1C 5.9(H) <=5.6 % 05/27/2024 9:55 AM CDT [facility] Estimated Average Glucose (Calc) 123 < 117 mg/dL 05/27/2024 9:55 AM CDT [facility] Comment:Estimated average gl ucose (eAG) converts A1c into glucose units (mg/dL) and estimates average glucose over the past approximately 3 months. The eAG reference interval (<117 mg/dL) corresponds to an A1c of <5.7%. Blood Venipuncture / Unknown 05/26/2024 3:42 PM CDT 05/26/2024 3:42 PM CDT Narrative [facility] - 05/27/2024 9:55 AM CDT For patients not previously diagnosed with diabetes: 5.7-6.4%: Increased risk for diabetes 6.5% and greater: Diagnostic for diabetes For patients diagnosed with diabetes: <8.0%: Goal of therapy for ages 18-75 Clinicians may recommend a higher or lower goal for specific individuals. Federica Pittman APRN, CNP LAB_1 [facility] [address] [address] * TSH (05/26/2024 3:42 PM CDT) Pathologist [facility] TSH, Sensitive 3.59 0.30 - 4.50 uIU/mL 05/26/2024 9:12 PM CDT [facility] Blood Venipuncture / Unknown 05/26/2024 3:42 PM CDT 05/26/2024 3:42 PM CDT Federica Palmer Toya TORRES CNP LAB_1 Performing Organization Address [facility] de Phone Number [facility] [address] [place] [address] * Hepatitis C Antibody, with Reflex (05/26/2024 3:42 PM CDT) Hepatitis C Antibody Negative (Non Reactive) Negative (Non Reactive) 05/26/2024 9:12 PM CDT [facility] Comment:Antibodies to HCV no t detected. Does not exclude the possiblity of exposure to HCV. Blood Venipuncture / Unknown 05/26/2024 3:42 PM CDT 05/26/2024 3:42 PM CDT Federica Palmer Toya TORRES CNP LAB_1 Performing Organization Address [facility] Phone Number [facility] [address] [place] [address] * (ABNORMAL) Lipid Panel and Direct LDL(If Needed) (05/26/2024 3:42 PM CDT) Cholesterol 321(H) 0 - 199 mg/dL 05/27/2024 10:50 AM [facility] Triglyceride 136 <=149 mg/dL 05/27/2024 10:50 AM [facility] HDL Cholesterol 65 >=40 mg/dL 10:50 AM [facility] LDL, Calculated 229(H) <130 mg/dL 10:50 AM [facility] Non HDL Chol, Calculated 256(H) <=159 mg/dL 05/27/2024 10:50 AM [facility] Cholesterol/HDL Ratio 4.9 <=5.0 05/27/2024 10:50 AM [facility] Hours Fasting 21.5 8 - 12 Hours 05/27/2024 10:50 AM [facility] Blood Venipuncture / Unknown 05/26/2024 3:42 PM CDT 05/26/2024 3:42 PM CDT Federica Pittman POCKETED SPRING ASSEMBLER, CONSTRUCTION SUPERVISOR/CARPENTER LAB_1 [facility] [address] [place] [address], [facility] [address] [place] [address] documented in this encounter Visit Diagnoses Diagnosis Hyperlipidemia, unspecified hyperlipidemia type (HRC) Need for hepatitis C screening test Special screening examination for other specified viral diseases Hypothyroidism, unspecified type (HRC) Screening for diabetes mellitus Hypertension, unspecified type (HRC) documented in this encounter Care Teams Boxing Trainer Relationship Specialty Start Date End Date Needs Pcp, [place] [address] PCP - General 11/15/21 documented as of this encounter
--- OUTSIDE RECORDS SUMMARY | 2024-06-14 07:06 | XMS_ITS | Encounter Summary ---
Author Organization [facility] Address [address] [place] [address] Care Team Providers Care Watch Repairer Apprentice Name Role Phone Harriet Haley MD Primary Care Provider [phone] Reason for Visit * Reason Onset Date Comments Procedure 2015 LESI Encounter Details Date Type Department Care Team (Late st Contact Info) Description 2015 Telephone [facility] Pain Management [address] [place] [address] Pain Management Program, [facility] Procedure (LESI) Social History Tobacco Use Types Packs/Day Years Used Date Smoking Tobacco: Former Cigarettes Q uit: 09/15/2015 Alcohol Use Standard Drinks/Week Comments Yes 0 (1 standard drink = 0.6 oz pur e alcohol) SMALL Comments No Sex and Gender Information Value Date Recorded Sex Assigned at Not on file Legal Sex Female 3:12 AM PHLEBOTOMIST PRN Gender Identity Not on file Sexual Orientation Not on file documented as of this encounter Miscellaneous Notes * Telephone Encounter - Babita Rosado - 10/29/2015 9:32 AM CDT Called pt to schedule LESI, lvm. Babita Rosado Digital Art Director [facility] [place] * Telephone Encounter - Babita Rosado - 2015 8:37 AM CDT Called pt to schedule LESI, LVM. Babita Rosado Digital Art Director [facility] [place] * Telephone Encounter - Alfreda Segura - 2015 8:14 AM CDT Order received from [facility] for TF LESI. Order scanned to telephone encounter, routing to scheduling coordinators to contact patient. Alfreda Segura Digital Art Director [facility] documented in this encounter Plan of Treatment Not on file documented as of this encounter Visit Diagnoses Not on filedocumented in this encounter Care Teams Watch Repairer Apprentice Relationship Specialty Start Date End Date Harriet Haley MD [address] [address] PCP - General Physician Master [employer] 10/01/15 documented as of this encounter
--- OUTSIDE RECORDS SUMMARY | 2024-06-14 07:06 | XMS_ITS | Encounter Summary ---
Author Organization [employer] Address [address] [address] Care Team Providers Care Director Transition Name Role Phone Needs Pcp, Assignment Primary Care Provider [phone] Reason for Visit * Reason Comments QUESTIONS, GENERAL Entered automaticall y based on patient selection in [employer]. Encounter Details Date Type Department Care Team (Late st Contact Info) Description 06/10/2024 11:30 AM CDT E-Visit [place] [address] Family Medicine [address] [place] [address] Federica Pittman, HOME HEALTH CAREGIVER, CINEMA OPERATOR [address] [place] [address] Dx: Hyperlipidemia, unspecified hyperlipidemia type (HRC) Social History Tobacco Use Types [...] any time in the past 12 m [facility], were you homeless or living in a nursing home (including now)? No 05/26/2024 Financial Resource Strain [...] st Contact Info) Description 06/16/2024 3:30 PM COMPOSITION FLOOR SETTER Appointment [place] [address] Dermatology [facility] [place] [address] Milly Brown MD [address] [place] [address] Scheduled Orders Name Type Priority Associated Diagnoses Orde r Schedule Lipid Panel and Direct LDL(If Needed) Lab Routine Hyperlipidemia, unspecified hyperlipidemia type (HRC) Expected: 07/11/2024 (Approximate), Expires: 12/08/2024 documented as of this encounter Visit Diagnoses Diagnosis Hyperlipidemia, unspecified hyperlipidemia type (HRC) documented in this encounter Care Teams Director Transition Relationship Specialty Start Date End Date Needs Pcp, [place] [address] PCP - General 11/15/21 documented as of this encounter
--- OUTSIDE RECORDS SUMMARY | 2024-06-14 07:06 | XMS_ITS | Encounter Summary ---
Author Organization [facility] Address [address] [place] [address] Care Team Providers Care Precision Assembler Bench Name Role Phone Needs Pcp, Assignment Primary Care Provider [phone] Reason for Visit * Reason Comments Labs Needed Per Psychiatrist Rash On face, she would l bartolome it looked at. Encounter Details Date Type Department Care Team (Late st Contact Info) Description 03/18/2024 3:00 PM CDT Office Visit [place] [address] Family Medicine [address] [place] [phone] Federica Pittman, INTELLIGENCE CONSULTANT, AUDITING SPECIALIST [address] [place] [address] Encounter for long-term (current) use of medications (Primary Dx); Periorbital dermatitis Social History Tobacco Use Types Packs/Day Years [...] Sign Reading Time Taken Comments Blood Pressure 121/84 03/18/2024 2:41 PM CDT Pulse 81 03/18/2024 2:41 PM CDT Temperature - - Respiratory Rate - - Oxygen Saturation - - Inhaled Oxygen Concentration - - Weight 101.6 kg (224 lb) 03/18/2024 2:41 PM CDT Height 172.7 cm (5' 8) 03/18/2024 2:41 PM CDT Body Mass Index 34.06 03/18/2024 2:41 PM CDT documented in this encounter Progress Notes * Federica Pittman, MELISSA, AUDITING SPECIALIST - 03/18/2024 3:00 PM CDT Subjective: Patient ID: Lizzie He is a 58 y.o. year old female Chief Complaint: Labs, EKG HPI This is a 58-year-old female who is here today for tests requested by her psychiatrist. She was previously followed at a clinic in [place] which closed last year. She follows with psychiatrist Lena Cyr at [facility]. Her psychiatrist recommended starting Adderall but needs an EKG and urine drug screen prior to initiating medication. Lizzie has a history of SVT and hypertension. She takes verapamil. Additionally, she has had a rash around the mouth for about 6 months. It goes away then comes back.She was seen in clinic in November where she was prescribed mupirocin and triamcinolone. Past Medical History: Diagnosis Date Gastroesophageal reflux disease Hyperlipidemia (HRC) Hypothyroidism (HRC) Outpatient Medications Prior to Visit Medication Sig Dispense Refill ARIPiprazole (ABILIFY) 2 MG tablet Take 2 mg by mouth daily. buPROPion (WELLBUTRIN XL) 150 MG 24 hour release tablet Take 1 Tablet (150 mg) by mouth daily. cephalexin (KEFLEX) 500 MG capsule Take 1 Capsule (500 mg) by mouth two times a day. cetirizine (ZYRTEC) 10 MG tablet Take 1 Tablet (10 mg) by mouth daily. 30 Tablet 0 chlorthalidone (HYGROTON) 25 MG tablet Take 1 Tablet (25 mg) by mouth daily. ciprofloxacin (CIPRO) 250 MG tablet Take 1 Tablet (250 mg) by mouth two times a day. ciprofloxacin (CIPRO) 500 MG tablet Take 1 Tablet (500 mg) by mouth two times a day. cyclobenzaprine (FLEXERIL) 10 MG tablet Take by mouth. desvenlafaxine (PRISTIQ) 100 MG 24 hour release tablet Take 100 mg by mouth daily. fosfomycin (MONUROL) 3 g packet Take 1 Packet (3 g) by mouth once. gabapentin (NEURONTIN) 300 MG capsule Take 300 mg by mouth three times a day. hydroCHLOROthiazide (ORETIC) 25 MG tablet Take 25 mg by mouth daily. levothyroxine (SYNTHROID) 112 MCG tablet Take 112 mcg by mouth daily. Levothyroxine Sodium Take 88 mcg by mouth. mupirocin (BACTROBAN) 2 % ointment Apply topically three times a day. Phentermine HCl 30 MG capsule Take 1 Capsule (30 mg) by mouth every morning. rosuvastatin (CRESTOR) 20 MG tablet Take 20 mg by mouth daily at bedtime. triamcinolone acetonide (KENALOG) 0.1 % cream Apply topically three times a day. valACYclovir (VALTREX) 1 g tablet Take 1 Tablet (1,000 mg) by mouth three times a day. verapamil (CALAN SR) 120 MG controlled release tablet Take 120 mg by mouth daily. BELSOMRA 10 MG TABS Take 1 Tablet by mouth at bedtime as needed. busPIRone (BUSPAR) 15 MG tablet Take 15 mg by mouth two times a day. camphor-menthol (SARNA) 0.5-0.5 % lotion Apply to areas of rash on body and extremities 222 mL 0 clonazePAM (KLONOPIN) 0.5 MG tablet Take by mouth. hydrOXYzine HCl (ATARAX) 25 MG tablet 1-2 tabs up tot every 6-8 hours as needed, makes you tired 30Tablet 0 No facility-administered medications prior to visit. Allergies Sulfamethoxazole-trimethoprim, Amoxicillin-pot clavulanate, Cefuroxime, and Nitrofurantoin Social History Social History Narrative Not on file Review of Systems Pertinent items are noted in HPI. Objective: Physical Exam BP 121/84 (BP Location: Left Arm, BP Cuff Size: Large) Pulse 81 Ht 5' 8 (1.727 m) Wt 224 lb (101.6 kg) BMI 34.06 kg/m?? General: Alert and oriented female in no acute distress Skin: Several small periorbital papules. No vesicles Psychiatric: Casually dressed, well groomed, good eye contact. Speech is regular rate and rhythm. She does not appear to be anxious or depressed. Assessment & Plan: Lizzie was seen today for labs needed and rash. Diagnoses and all orders for this visit: Encounter for long-term (current) use of medications EKG and urine drug screen ordered. These will be posted to our [employer] account. - Rapid Pain Management Panel Urine No; Future - ECG 12 Lead Outpatient Periorbital dermatitis Initiate a trial of metronidazole gel daily. - metroNIDAZOLE (METROGEL) 1 % gel; Apply topically daily. Periorbital dermatitis documented in this encounter Plan of Treatment Upcoming Encounters Date Type Department Care Team (Late st Contact Info) Description 06/16/2024 3:30 PM FITNESS PLAN COORDINATOR Appointment [place] [address] [place] [address] Milly Brown MD [address] [place] [id number] documented as of this encounter Procedures Procedure Name Priority Date/Time Associated Diagnosis Comments ECG 12 LEAD OUTPATIENT Routine 03/18/2024 2:47 PM CDT Encounter for long-term (current) use of medications documented in this encounter Results * (ABNORMAL) Rapid Pain Management Panel Urine No (03/18/2024 3:24 PM CDT) [facility] Amphetamines Screen Not Detected Not Detected 03/18/2024 8:58 PM CDT [facility] Is patient prescribed amphetamines (i.e. Adderall)? No 03/18/2024 8:58 PM CDT [facility] Is the patient prescribed methylphenidate (i.e. Ritalin)? No 03/18/2024 8:58 PM CDT [facility] Barbiturates Screen Not Detected Not Detected 03/18/2024 8:58 PM CDT [facility] Is patient prescribed barbiturates? No 03/18/2024 8:58 PM CDT [facility] Benzodiazepines Screen Not Detected Not Detected 03/18/2024 8:58 PM CDT [facility] Is patient prescribed benzodiazepine? No 03/18/2024 8:58 PM CDT [facility] Buprenorphine Screen Not Detected Not Detected 03/18/2024 8:58 PM CDT [facility] Is patient prescribed buprenorphine? No 03/18/2024 8:58 PM CDT [facility] Cocaine Metabolite Screen Not Detected Not Detected 03/18/2024 8:58 PM CDT [facility] Methadone Screen Not Detected Not Detected 03/18/2024 8:58 PM CDT [facility] Is patient prescribed methadone? No 03/18/2024 8:58 PM CDT [facility] Opiates Screen Not Detected Not Detected 03/18/2024 8:58 PM CDT [facility] Is patient prescribed opiates? No 03/18/2024 8:58 PM CDT [facility] Oxycodone Screen Not Detected Not Detected 03/18/2024 8:58 PM CDT [facility] Is patient prescribed oxycodone? No 03/18/2024 8:58 PM CDT [facility] Is patient prescribed THC? No 03/18/2024 8:58 PM CDT [facility] Phencyclidine (PCP) Screen Not Detected Not Detected 03/18/2024 8:58 PM CDT [facility] THC (Marijuana) Metab Screen Presumptive Positive(A) Not Detected 03/18/2024 8:58 PM CDT [facility] Creatinine, Urine, Random 30 >20 mg/dL 03/18/2024 8:58 PM CDT [facility] Urine Non-blood Collection / Unknown 03/18/2024 3:24 PM CDT 03/18/2024 3:24 PM CDT [facility] - 03/18/2024 8:58 PM CDT The [...] employment use. Federica Pittman APRN, CNP LAB_1 Performing Organization Address [facility] Co de Phone Number [facility] [address] [place] [address], [facility] [address] [place] [address] * ECG 12 Lead Outpatient (03/18/2024 2:47 PM CDT) Ventricular Rate 82 BPM [facility] Atrial Rate 82 BPM [facility] P-R Interval 184 ms [facility] QRS Duration 90 ms [facility] QT 396 ms [facility] QTc 462 ms [facility] P Brethren 64 degrees [facility] R Brethren -7 degrees [facility] T Brethren 54 degrees [facility] 03/18/2024 2:47 PM CDT Narrative [facility] - 03/18/2024 3:40 PM CDT Sinus rhythm Possible Left atrial enlargement Low voltage QRS Borderline ECG No previous ECGs available Confirmed by Edmond Callaway ([id number]) on 03/18/2024 3:40:49 PM Procedure Note Edmond Callaway MD - 03/18/2024 Sinus rhythm Possible Left atrial enlargement Low voltage QRS Borderline ECG No previous ECGs available Confirmed by Edmond Callaway ([id number]) on 03/18/2024 3:40:49 PM Federica Pittman APRN, CNP PN ECG ORDERABLE S Performing Organization Address [facility] Co de Phone Number [facility] [address] [place] [address] documented in this encounter Visit Diagnoses Diagnosis Encounter for long-term (current) use of medications- Primary Encounter for long-term (current) use of other medications Periorbital dermatitis documented in this encounter Care Teams Precision Assembler Bench Relationship Specialty Start Date End Date Needs Pcp, [place] [address] PCP - General 11/15/21 documented as of this encounter
--- OUTSIDE RECORDS SUMMARY | 2024-06-14 07:06 | XMS_ITS | Referral Summary ---
Author Organization [facility] Address [address] [place] [address] Care Team Providers Care Rope Rider Name Role Phone Harriet Haley MD Primary Care Provider [phone] Allergies Active Allergy Reactions Criticality Noted Date Comments Amoxicillin-Pot Clavulanate Rash Low 05/08/20 16 Cefuroxime Rash Low 05/08/2016 Nitrofurantoin Rash Low 05/08/2016 Pruritic rash No Known Allergies 09/21/2002 Sulfamethoxazole-Trimethoprim Nausea 2015 Stomach pain and nausea Medications DULoxetine HCl (CYMBALTA PO) Take 120 mg by mouth every evening Active LEVOTHYROXINE SODIUM PO Take 88 mcg by mouth daily Active Verapamil HCl (CALAN SR PO) Take 120 mg by mouth every morning Active acetaminophen (TYLENOL) 500 MG tabletIndicatio ns:Acute low back pain Take 2 tablets (1,000 mg) by mouth 3 times daily For one week then change to as needed. Do not take other tylenol/acetamino phen medications. 6 Active Additional Information Patient not taking.Reported on 11/13/2017 ibuprofen (ADVIL,MOTRIN) 600 MG tabletIndicatio ns:Acute low back pain Take 1 tablet (600 mg) by mouth every 8 hours as needed for other (mild pain) 120 tablet 6 Active order for DMEIndications: Acute low back pain Equipment being ordered: Cane (E0100) Treatment Diagnosis: Acute back pain 1 Device 0 6 Active oxyCODONE (ROXICODONE) 5 MG immediate release tablet Take 1 tablet (5 mg) by mouth every 4 hours as needed for pain 12 tablet 0 6 Active order for DMEIndications: Left foot pain Equipment being ordered: The following items were dispensed: Roll-a-bout for possible stress fracture/reaction of the left foot. 1 Device 0 6 Active ARIPiprazole (ABILIFY) 2 MG tablet Take 1 tablet (2 mg) by mouth At Bedtime 30 tablet 0 6 Active ASPIRIN NOT PRESCRIBED (INTENTIONAL) continuous prn for other Antiplatelet medication not prescribed intentionally due to {CHOOSE REASON BEFORE SIGNING!!!:761663 } Active order for DMEIndications: Pain of toe of left foot Equipment being ordered: crutches 1 Units 0 6 Active traMADol (ULTRAM) 50 MG tabletIndicatio ns:Stress fracture of right foot with routine healing, subsequent encounter Take 1 tablet (50 mg) by mouth nightly as needed for moderate pain 10 tablet 0 6 Active predniSONE (DELTASONE) 20 MG tabletIndicatio ns:Throat pain Take 1 tablet (20 mg) by mouth daily 5 tablet 7 Active Additional Information Patient not taking.Reported on 11/13/2017 ciprofloxacin (CIPRO) 250 MG tabletIndicatio ns:Urinary tract infection without hematuria, site unspecified Take 1 tablet (250 mg) by mouth 2 times daily 6 tablet 8 Active meclizine (ANTIVERT) 25 MG tablet Take 1 tablet (25 mg) by mouth 3 times daily as needed for dizziness 30 tablet 2 Active diazepam (VALIUM) 2 MG tablet Take 1 tablet (2 mg) by mouth every 12 hours as needed (vertigo) 2 tablet 2 Active Active Problems Patient Care Coordination No te Formatting of this note migh t be different from the original. [email or web address] Problem Noted Date Diagnosed Date Chronic bilateral [...] School Help Needed Not on file 05/09 Comments No Sex and Gender Information Value Date Recorded Sex Assigned at Not on file Legal Sex Female 3:12 AM [facility] Gender Identity Not on file Sexual Orientation Not on file Last Filed Vital Signs Vital Sign Reading Time Taken Comments Blood Pressure 133/88 06/28/2022 9:07 PM [facility] Pulse 91 06/28/2022 9:07 PM [facility] Temperature 36.7 ??C (98 ??F) 06/28/2022 9:07 PM [facility] Respiratory Rate 16 06/28/2022 9:07 PM [facility] Oxygen Saturation 95% 06/28/2022 9:07 PM [facility] Inhaled Oxygen Concentration - - Weight 99.8 kg (220 lb) 09/23/2017 6:47 PM [facility] Height 172.7 cm (5' 8) 09/28/2016 2:53 PM [facility] Body Mass Index 33.45 09/28/2016 2:53 PM [facility] Plan of Treatment Not on file Medical Devices Implanted Type Area Lens Assorter Device Identifier Shelf Expiration Date Model / Serial / Lot Sling Sparc Urinary System [id number] Implanted:Qty : 1 on 11/05/2015 Stent N/A: Bladder [employer]OR[employer] 06/15/2018 [id number] / / [id number] Kit Sling Lynx - [id number] Implanted:Qty : 1 on 02/20/2016 Stent N/A: Bladder [employer] 11/25/2018 [id number] / / [id number] C4-C5 Fusion Explanted Type Area Lens Assorter Device Identifier Shelf Expiration Date Model / Serial / Lot Sparc Sling Explanted:2015 (Quantity not on file) Procedures Procedure Name Priority Date/Time Associated Diagnosis Comments URINE DRUG SCREEN STAT 06/28/2022 3:5 6 PM [facility] BASIC METABOLIC PANEL STAT 06/28/2022 2:40 PM [facility] HCL TSH Routine 03/11/2004 9:36 AM CDT Hypothyroidism Nos from Last 3 Months or Most Recently Relevant to Health Maintenance Results * (ABNORMAL) Basic metabolic panel (06/28/2022 2:40 PM [facility]) Sodium 135(L) 136 - 145 mmol/L 06/28/2022 3:25 PM [facility] Potassium 3.9 3.4 - 5.3 mmol/L 06/28/2022 3:25 PM [facility] Comment:Specimen slightly he molyzed, potassium may be falsely elevated. Chloride 97(L) 98 - 107 mmol/L 06/28/2022 3:25 PM [facility] Carbon Dioxide (CO2) 28 22 - 29 mmol/L 06/28/2022 3:25 PM [facility] Anion Gap 10 7 - 15 mmol/L 06/28/2022 3:25 PM [facility] Urea Nitrogen 16.1 6.0 - 20.0 mg/dL 06/28/2022 3:25 PM [facility] Creatinine 0.96(H) 0.51 - 0.95 mg/dL 06/28/2022 3:25 PM [facility] Calcium 9.4 8.6 - 10.0 mg/dL 06/28/2022 3:25 PM [facility] Glucose 93 70 - 99 mg/dL 06/28/2022 3:25 PM [facility] GFR Estimate 69 >60 mL/min/1.7 3m2 06/28/2022 3:25 PM [facility] Comment:Effective July 112020 eGFRcr in adults is calculated using the 2020 CKD-EPI creatinine equation which includes age and gender (Heather et al., NEJM, DOI: 10.1056/YGKPdh6089989) Blood STRUCTURE OF RIGHT UPPER LIMB / Unknown Venipuncture / Unknown 06/28/2022 2:40 PM [facility] 06/28/2022 2:52 PM [facility] us Pastor Marino MD LAB - BLOOD ORDER NATALY Final Result LABORATORY [facility] [address] Lab (1st floor, no room number) [place] [address], [facility] [phone] * TSH- (03/11/2004 9:36 AM CDT) TSH 4.10 0.4 - 5.0 mU/L [facility] 03/11/2004 9:36 AM CDT 03/11/2004 9:41 AM CDT us Amor Montgomery MD LABORATORY Final Resu lt [facility] [address] [place] [address] from Last 3 Months or Most Recently Relevant to Health Maintenance Insurance [employer] Advance Directives For more information, please contact: [phone] * Full Code (Latest Code Status on File) Date Activated Date Inactivated Comments 10/03/2015 3:40 PM 06/28/2022 2:10 PM * Full Code Date Activated Date Inactivated Comments 10/01/2015 6:21 PM 10/03/2015 3:40 PM Care Teams Rope Rider Relationship Specialty Start Date End Date Harriet Haley MD [address] [facility] [address] [place] [address] PCP - General Physician Gill Net Stringer 10/01/15
--- OUTSIDE RECORDS SUMMARY | 2024-06-14 07:06 | XMS_ITS | Encounter Summary ---
Author Hub Preferred Language ENG Marital Status Single Gnosticism Affiliation Unknown Race White Ethnic Group Non , /a, or Ukrainian Origin Author Organization [facility] Address [address] [place] [address] Care Team Providers Care Grinder Mill Operator Name Role Phone Needs Pcp, Assignment Primary Care Provider [phone] Reason for Visit * Reason Comments Refill metroNIDAZOLE (METRO GEL) 1 % gel [Pharmacy Med Name: METRONIDAZOLE 1% GEL] Encounter Details Date Type Department Care Team (Late st Contact Info) Description 05/08/2024 Refill [place] [address] Family Medicine [address] [place] [phone] Federica Pittman, VIOLIN TUTOR, MANUFACTURING PROCESS ENGINEER [address] [place], [place] [id number] Refill (metroNIDAZOLE (METROGEL) 1 % gel [Pharmacy Med Name: METRONIDAZOLE 1% GEL]) Social History Tobacco Use Types Packs/Day Years [...] as of this encounter Nursing Notes * Tere Schrader RN - 05/10/2024 2:47 PM CDT Further Assistance Needed on Refill from Clinician Medication newly ordered in the last 12 months. Medication started: 03/18/2024 Last qualifying visit: 03/18/2024 (with FEDERICA PITTMAN) Next scheduled visit: 05/26/2024 (with FEDERICA PITTMAN) Review pended order for accuracy and sign if appropriate and Close encounter Requested Prescriptions Pending Prescriptions Disp Refills metroNIDAZOLE (METROGEL) 1 % gel [Pharmacy Med Name: METRONIDAZOLE 1% GEL] 60 g 3 Sig: Apply topically daily. Periorbital dermatitis, * Serafin Perez Xrwcomm - 05/08/2024 1:58 AM CDT metroNIDAZOLE (METROGEL) 1 % gel [Pharmacy Med Name: METRONIDAZOLE 1% GEL] Medication started: 03/18/2024 Last ordered by FEDERICA PITTMAN: 03/18/2024 (51 days ago) QTY: 60, Refills: 1, Sig: apply topically daily. periorbital dermatitis (changed) -> Unable to determine if sig has changed, review required. -> Refill x 12 months (until due for an office visit) -> Calculate the quantity and number of refills manually. Last qualifying visit: 03/18/2024 (with FEDERICA PITTMAN) Next scheduled visit: 05/26/2024 (with FEDERICA PITTMAN) [facility] Embedded Refills, Reference: [id number], 05/08/2024 1:58:25 AM CDT, Pool: PN Refill Centralized Services - Primary Care [[id number]] ([id number]) documented in this encounter Plan of Treatment Upcoming Encounters Date Type Department Care Team (Late st Contact Info) Description 06/16/2024 3:30 PM BUNK ASSEMBLER Appointment [place] [address] [address] [place] [id number] [place] [address] [place] [id number] documented as of this encounter Visit Diagnoses Diagnosis Periorbital dermatitis documented in this encounter Care Teams Grinder Mill Operator Relationship Specialty Start Date End Date Needs Pcp, Assignment [place], [place] [id number] PCP - General 11/15/21 documented as of this encounter
--- OUTSIDE RECORDS SUMMARY | 2024-06-14 07:06 | XMS_ITS | Clinical Summary ---
Author Organization [facility] Address [address] [place] [address] Care Team Providers Care Extrusion Supervisor Name Role Phone Harriet Haley MD Primary Care Provider [phone] Allergies Active Allergy Reactions Criticality Noted Date [...] prescribed intentionally due to {CHOOSE REASON BEFORE SIGNING!!!:738283 } Active order for DMEIndications: Pain of [...] migh t be different from the original. [email or web address] Problem Noted Date Diagnosed Date Chronic bilateral [...] on file Legal Sex Female 3:12 AM HOSPITAL CNA Gender Identity Not on file Sexual Orientation Not on file Last Filed Vital Signs Vital Sign Reading Time Taken Comments Blood Pressure 133/88 06/28/2022 9:07 PM HOSPITAL CNA Pulse 91 06/28/2022 9:07 PM HOSPITAL CNA Temperature 36.7 ??C (98 ??F) 06/28/2022 9:07 PM HOSPITAL CNA Respiratory Rate 16 06/28/2022 9:07 PM HOSPITAL CNA Oxygen Saturation 95% 06/28/2022 9:07 PM HOSPITAL CNA Inhaled Oxygen Concentration - - Weight 99.8 kg (220 lb) 09/23/2017 6:47 PM HOSPITAL CNA Height 172.7 cm (5' 8) 09/28/2016 2:53 PM HOSPITAL CNA Body Mass Index 33.45 09/28/2016 2:53 PM HOSPITAL CNA Plan of Treatment Health Maintenance Due Date [...] 10/26/2015 ZOSTER IMMUNIZATION (1 of 2) 10/26/2015 URINE DRUG SCREEN 06/28/2023 06/28/2022 PHQ-2 (once per calendar year) 2023 10/10/2015 COVID-19 Vaccine ( season) 2024 05/14/2021, 08/29/2020, 08/08/2020 INFLUENZA VACCINE (#1) 2024 2, 04/29/2021, 05/07/2020, Additional history exists DTAP/TDAP/TD IMMUNIZATION (2 - Td or Tdap) 10/09/2024 10/09/2014, 09/13/2004 GLUCOSE 06/28/2025 06/28/2022, 06/10, 11/13/2015, Additional history exists RSV VACCINE (1 - 1-dose 75+ series) 2040 Pneumococcal Vaccine: Pediatrics (0 to 5 Years) [...] this topic Medical Devices Implanted Type Area French Drawer Device Identifier Shelf Expiration Date Model / Serial / Lot Sling Sparc Urinary System [id number] Implanted:Qty : 1 on 11/05/2015 Stent N/A: Bladder [employer] 06/15/2018 [id number] / / [id number] Kit Sling Lynx - [id number] Implanted:Qty : 1 on 02/20/2016 Stent N/A: Bladder [employer] 11/25/2018 [id number] / / [id number] C4-C5 Fusion Explanted Type Area French Drawer Device Identifier Shelf Expiration Date Model / Serial / Lot Sparc Sling Explanted:2015 (Quantity not on file) Procedures Procedure Name Priority Date/Time Associated Diagnosis Comments URINE DRUG SCREEN STAT 06/28/2022 3:5 6 PM HOSPITAL CNA BASIC METABOLIC PANEL STAT 06/28/2022 2:40 PM HOSPITAL CNA HCL TSH Routine 03/11/2004 9:36 AM CDT Hypothyroidism Nos from Last 3 Months or Most Recently Relevant to Health Maintenance Results * (ABNORMAL) Basic metabolic panel (06/28/2022 2:40 PM HOSPITAL CNA) Sodium 135(L) 136 - 145 mmol/L 06/28/2022 3:25 PM [facility]PITAL CNA LABORATORY Potassium 3.9 3.4 - 5.3 mmol/L 06/28/2022 3:25 PM [facility] Comment:Specimen slightly he molyzed, potassium may be falsely elevated. Chloride 97(L) 98 - 107 mmol/L 06/28/2022 3:25 PM [facility]ITAL [facility] LAB[facility] Carbon Dioxide (CO2) 28 22 - 29 mmol/L 06/28/2022 3:25 PM [facility]ITAL [facility] LAB[facility] Anion Gap 10 7 - 15 mmol/L 06/28/2022 3:25 PM [facility]ITAL [facility] Urea Nitrogen 16.1 6.0 - 20.0 mg/dL 06/28/2022 3:25 PM [facility] Creatinine 0.96(H) 0.51 - 0.95 mg/dL 06/28/2022 3:25 PM [facility] Calcium 9.4 8.6 - 10.0 mg/dL 06/28/2022 3:25 PM [facility] Glucose 93 70 - 99 mg/dL 06/28/2022 3:25 PM [facility] GFR Estimate 69 >60 mL/min/1.7 3m2 06/28/2022 3:25 PM [facility] Comment:Effective July 112020 eGFRcr in adults is calculated using the 2020 CKD-EPI creatinine equation which includes age and gender (Heather et al., NEJM, DOI: 10.1056/GKTYld0133555) Blood STRUCTURE OF RIGHT UPPER LIMB / Unknown Venipuncture / Unknown 06/28/2022 2:40 PM HOSPITAL CNA 06/28/2022 2:52 PM HOSPITAL CNA us Pastor Marino MD LAB - BLOOD ORDER NATALY Final Result LABORATORY [facility] [address] Lab (1st floor, no room number) [place] [address], [facility] [phone] * TSH- (03/11/2004 9:36 AM CDT) TSH 4.10 0.4 - 5.0 mU/L [facility] 03/11/2004 9:36 AM CDT 03/11/2004 9:41 AM CDT us Amor Montgomery MD LABORATORY Final Resu lt [facility] [address] [place] [address] from Last 3 Months or Most Recently Relevant to Health Maintenance Insurance [employer] Advance Directives For more information, please contact: [phone] * Full Code (Latest Code Status on File) Date Activated Date Inactivated Comments 10/03/2015 3:40 PM 06/28/2022 2:10 PM * Full Code Date Activated Date Inactivated Comments 10/01/2015 6:21 PM 10/03/2015 3:40 PM Care Teams Extrusion Supervisor Relationship Specialty Start Date End Date Harriet Haley MD [address] [facility] [address] [place] [address] PCP - General Physician Endoscopy Nurse 10/01/15
--- OUTSIDE RECORDS SUMMARY | 2024-06-14 07:06 | XMS_ITS | Clinical Summary ---
Author Organization [employer] Address [address] [place] [address] Care Team Providers Care Dough Panner Name Role Phone Needs Pcp, Assignment Primary Care Provider [phone] Source Comments You are receiving this document as you are listed as the primary care provider,follow-up provider, or the patient has been referred to you for consultation.This is in compliance with the Medicare and[facility] EHR Incentive Program,which states Providers who transition their patient to another setting of careor provider of care or refers their patient to another provider of care shouldprovide summary care record for each transition of care or referral. [employer] Allergies Active Allergy Reactions Criticality Noted Date Comments Amoxicillin-Pot Clavulanate Rash Low 05/08/20 16 Cefuroxime Rash Low 05/08/2016 Nitrofurantoin Rash Low 05/08/2016 Pruritic rash Sulfamethoxazole-Trimethoprim Nausea 2015 Stomach pain and nausea Medications Medication Sig Dispensed Refills Start Date End Date Status ARIPiprazole (ABILIFY) 2 MG tablet Take 1 Tablet (2 mg) by mouth daily. 2 Active desvenlafaxine (PRISTIQ) 100 MG 24 hour release tablet Take 1 Tablet (100 mg) by mouth daily. 2 Active gabapentin (NEURONTIN) 300 MG capsule Take 1 Capsule (300 mg) by mouth three times a day. 2 Active cetirizine (ZYRTEC) 10 MG tablet Take 1 Tablet (10 mg) by mouth daily. 30 Tablet 2 Active buPROPion (WELLBUTRIN XL) 150 MG 24 hour release tablet Take 1 Tablet (150 mg) by mouth daily. 4 Active mupirocin (BACTROBAN) 2 % ointment Apply topically three times a day. 4 Active triamcinolone acetonide (KENALOG) 0.1 % cream Apply topically three times a day. 4 Active metroNIDAZOLE (METROGEL) 1 % gelIndications:Per iorbital dermatitis Apply topically daily. Periorbital dermatitis, 60 g 3 4 Active chlorthalidone (HYGROTON) 25 MG tabletIndications: Hypertension, unspecified type (HRC) Take 1 Tablet (25 mg) by mouth daily. 90 Tablet 3 4 Active rosuvastatin (CRESTOR) 20 MG tabletIndications: Hyperlipidemia, unspecified hyperlipidemia type (HRC) Take 1 Tablet (20 mg) by mouth daily at bedtime. 90 Tablet 3 4 Active verapamil (CALAN SR) 120 MG controlled release tabletIndications: SVT (supraventricular tachycardia) (HRC) Take 1 Tablet (120 mg) by mouth daily. 90 Tablet 3 4 Active verapamil (VERELAN) 240 MG 24 hour release capsuleIndications :SVT (supraventricular tachycardia) (HRC) Take 1 Capsule (240 mg) by mouth every evening. 90 Capsule 3 4 025 Active levothyroxine (SYNTHROID) 112 MCG tabletIndications: Hypothyroidism, unspecified type (HRC) Take 1 Tablet (112 mcg) by mouth daily. 90 Tablet 3 4 Active Levothyroxine Sodium Take 88 mcg by mouth. 024 Discontinued hydroCHLOROthiazid e (ORETIC) 25 MG tablet Take 1 Tablet (25 mg) by mouth daily. 2 024 Discontinued levothyroxine (SYNTHROID) 112 MCG tablet Take 1 Tablet (112 mcg) by mouth daily. 2 024 Discontinued(*M ed change OR same med OR reorder, new dose/directions ) rosuvastatin (CRESTOR) 20 MG tablet Take 1 Tablet (20 mg) by mouth daily at bedtime. 2 024 Discontinued(*M ed change OR same med OR reorder, new dose/directions ) verapamil (CALAN SR) 120 MG controlled release tablet Take 1 Tablet (120 mg) by mouth daily. 2 Discontinued(*M ed change OR same med OR reorder, new dose/directions ) cephalexin (KEFLEX) 500 MG capsule Take 1 Capsule (500 mg) by mouth two times a day. 4 024 Discontinued chlorthalidone (HYGROTON) 25 MG tablet Take 1 Tablet (25 mg) by mouth daily. 4 Discontinued(*M ed change OR same med OR reorder, new dose/directions ) ciprofloxacin (CIPRO) 500 MG tablet Take 1 Tablet (500 mg) by mouth two times a day. 4 Discontinued ciprofloxacin (CIPRO) 250 MG tablet Take 1 Tablet (250 mg) by mouth two times a day. 4 Discontinued cyclobenzaprine (FLEXERIL) 10 MG tablet Take by mouth. 4 Discontinued fosfomycin (MONUROL) 3 g packet Take 1 Packet (3 g) by mouth once. 4 Discontinued Phentermine HCl 30 MG capsule Take 1 Capsule (30 mg) by mouth every morning. 4 Discontinued valACYclovir (VALTREX) 1 g tablet Take 1 Tablet (1,000 mg) by mouth three times a day. 4 Discontinued Active Problems Problem Noted Date Diagnosed Date Anxiety 03/18/2024 Adenomatous colon polyp 03/18/2024 Calculus of ureterovesical junction (UVJ) 2023 Closed head injury 03/18/2024 Hypertension 03/18/2024 Overview (05/26/2024): Patient denies this diagnosis. Hyperlipidemia 03/18/2024 SVT (supraventricular tachycardia) 03/18/2024 Fibromyalgia 10/09/2019 Depression, major, single episode, severe 2019 Generalized anxiety disorder 10/09/2019 Family history of colonic polyps 11/26/2018 Cervical radiculopathy 05/27/2017 Cerebrovascular accident (CV A) due to thrombosis of cerebral artery 04/30/2016 Overview (05/26/2024): Treated tPA. Resolution of symptoms. Peripheral neuropathic pain 06/25/2015 Ankylosing spondylitis 11/28/2013 Chronic pain 06/06/2010 Overview (03/18/2024): See scanned document: 06/06/2010 More than 12 prescriptions of controlled substances from different providers per [employer] Chronic depression 11/10/2009 Hypothyroidism 11/10/2007 Migraine headache 11/20/2006 Displacement of cervical int ervertebral disc without myelopathy 04/30/2006 Major depressive disorder, r ecurrent severe without psychotic features Bilateral primary osteoarthritis of knee Resolved Problems Problem Noted Date Diagnosed Date Resolved Date Tobacco dependence 08/30/2015 Encounters Date Type Department Care Team Description 06/10/2024 11:30 AM CDT E-Visit [address] [phone] Federica Pittman APRN, WAREHOUSE FREIGHT HANDLER Dx: Hyperlipidemia, unspecified hyperlipidemia type (HRC) 05/31/2024 Notes/Orders [address] [phone] Federica Pittman APRN, WAREHOUSE FREIGHT HANDLER Hypothyroidism, unspecified type (HRC) (Primary Dx) 05/26/2024 3:40 PM CDT Lab Visit [address] [phone] Hyperlipidemia, unspecified hyperlipidemia type (HRC); Need for hepatitis C screening test; Hypothyroidism, unspecified type (HRC); Screening for diabetes mellitus; Hypertension, unspecified type (HRC) 05/26/2024 1:30 PM CDT Office Visit [address] [phone] Federica Pittman, TURKEY EGG GATHERER, WAREHOUSE FREIGHT HANDLER Well woman exam (no gynecological exam) (Primary Dx); SVT (supraventricular tachycardia) (HRC); Hypertension, unspecified type (HRC); Hyperlipidemia, unspecified hyperlipidemia type (HRC); Hypothyroidism, unspecified type (HRC); Screening for colon cancer; Screening for diabetes mellitus; Need for hepatitis C screening test; Encounter for screening mammogram for malignant neoplasm of breast 05/23/2024 Notes/Orders [facility] [address] [place] [address] Noah Moreno MD Routine general medical examination at health care facility 05/08/2024 Refill [place] [address] [facility] [address] [place] [phone] Federica Pittman APRN, WAREHOUSE FREIGHT HANDLER Refill (metroNIDAZOLE (METROGEL) 1 % gel [Pharmacy Med Name: METRONIDAZOLE 1% GEL]) 03/18/2024 3:30 PM CDT Lab Visit [address] [phone] Encounter for long-term (current) use of medications 03/18/2024 3:00 PM CDT Office Visit [address] [phone] Federica Pittman, MELISSA, WAREHOUSE FREIGHT HANDLER Encounter for long-term (current) use of medications (Primary Dx); Periorbital dermatitis from Last 3 Months Immunizations Name Administration Dates Next Due Flu Vac (18-64 Yrs), Intradermal 05/07/2020 Flu Vac (3+ yrs) 04/27/2017, 3,05/12/2013,2011,05/05/2011,06/10/2010,06/11/2009,1 08/12/2007 Flu Vac Preserv Free (3+yrs) 05/04/2024 Fluzone Qiv Multidose Vial 0 .25 (6-35 Mos) 05/05/2018,06/15/2014 [id number] 06/28/2009 Influenza IIV4 (Quadrivalent ) 0.5mL (84090) 05/04/2023,04/30/2022,04/29/2021,2019,05/02/2019,05/05/2018,04/27/2017,1 09/05/2015,06/29/2015,06/18/2015, 014,05/12/2013,05/10/2012,05/05/2011,,06/28/2009 Influenza, Unspecified Formulation 07/09/2016,,05/10/2010 Moderna COVID-19 12+ 06/03/2023 PCV13 (Prevnar) 07/20/2013 PPSV23 (Pneumovax) 07/20/2013,01/01/2011 Pfizer COVID-19 12+ 05/04/2024 Pfizer Monovalent 12+ Purple Top 05/14/2021,08/11,08/08/2020 Td 09/13/2004 Tdap 10/09/2014 Zoster RZV (Shingrix) 03/23/2024 Family History Medical History Relation Name Comments Asthma Father Bill Diabetes Father Bill High Cholesterol Father Bill Hypertension Father Bill Depression Mother Alice High Cholesterol Mother Alice Cancer Paternal Uncle Teto Dad's twin Relation Name Status Comments Father Bill Mother Alice Paternal Uncle Teto Social History Tobacco Use Types Packs/Day Years [...] any time in the past 12 m [facility], were you homeless or living in a residential (including now)? No 05/26/2024 Financial Resource Strain [...] Pulse 74 05/26/2024 1:14 PM CDT Temperature 36.7 ??C (98.1 ??F) 11/12/2021 12:04 PM C DT Respiratory Rate 18 11/12/2021 12:04 PM CDT Oxygen Saturation 98% 11/12/2021 12:04 PM CDT Inhaled Oxygen Concentration - - Weight 105.2 kg (232 lb) 05/26/2024 1:14 PM CDT Height 172.7 cm (5' 8) 05/26/2024 1:14 PM CDT Body Mass Index 35.28 05/26/2024 1:14 PM CDT Plan of Treatment Upcoming Encounters Date Type Department Care Team (Late st Contact Info) Description 06/16/2024 3:30 PM MILITARY AIRCRAFT DESIGNER Appointment [place] [phone] [facility] [address] [place] [address] Milly Brown MD [address] [place], [place] [phone] Health Maintenance Due Date Last Done Comments Cervical Cancer Screening Due 1965 Colon Cancer Screening Plan Due 1965 HepB (1) 1984 Mammogram 12/24/2019 12/23/2018, 12/23/2018 Zoster/Shingles (2 of 2) 05/18/2024 03/23/2024 DTaP/Tdap/Td (2 - Tdap) 10/09/2024 10/09/2014, 09/13 Adult Preventive Visit 05/26/2025 05/26/2024 Diabetes Screening- (based on age and BMI) 05/26/2027 05/26/2024 Cholesterol 05/26/2029 05/26/2024 Pneumococcal Aged Out 07/20/2013, 07/10, 01/01/2011 No longer eligible based on patient's age to complete this topic HIV Screening (Preventive Services) Completed 05/06/2018 COVID-19 Vaccine Completed 05/04/2024, , 05/14/2021, Additional history exists Influenza Completed 05/04/2024, 04/11, 04/30/2022, Additional history exists Hep C Screening (Preventive Services) Completed 05/26/2024 HepA Aged Out No longer eligi ble based on patient's age to complete this topic Hib Aged Out No longer eligi ble based on patient's age to complete this topic IPV (Polio) Aged Out No longer eligi ble based on patient's age to complete this topic RSV Aged Out No longer eligi ble based on patient's age to complete this topic MCV4 Aged Out No longer eligi ble based on patient's age to complete this topic Procedures Procedure Name Priority Date/Time Associated Diagnosis Comments HEPATITIS C ANTIBODY, WITH REFLEX Routine 05/26/2024 3:42 PM CDT Need for hepatitis C screening test COMPREHENSIVE METABOLIC PANEL Routine 05/26/2024 3:42 PM CDT Hypertension, unspecified type (HRC) HGB A1C Routine 05/26/2024 3:42 PM CDT Screening for diabetes mellitus TSH, SENSITIVE Routine 05/26/2024 3:42 PM CDT Hypothyroidism, unspecified type (HRC) LIPID PANEL & DIRECT LDL (IF NEEDED) Routine 05/26/2024 3:42 PM CDT Hyperlipidemia, unspecified hyperlipidemia type (HRC) THC (MARIJUANA) METAB CONFIRM, URINE Routine 03/18/2024 3:24 PM CDT Encounter for long-term (current) use of medications RAPID PAIN MANAGEMENT PANEL URINE Routine 03/18/2024 3:24 PM CDT Encounter for long-term (current) use of medications ECG 12 LEAD OUTPATIENT Routine 03/18/2024 2:47 PM CDT Encounter for long-term (current) use of medications from Last 3 Months Results * (ABNORMAL) Lipid Panel and Direct LDL(If Needed) (05/26/2024 3:42 PM CDT) Cholesterol 321(H) 0 - 199 mg/dL 05/27/2024 10:50 AM CDT [facility] Triglyceride 136 <=149 mg/dL 05/27/2024 10:50 AM T [facility] HDL Cholesterol 65 >=40 mg/dL 10:50 AM T [facility] LDL, Calculated 229(H) <130 mg/dL 10:[address] [facility] Non HDL Chol, Calculated 256(H) <=159 mg/dL 05/27/2024 10:50 AM T [facility] Cholesterol/HDL Ratio 4.9 <=5.0 05/27/2024 10:[address] [facility] Hours Fasting 21.5 8 - 12 Hours 05/27/2024 10:50 AM [facility] Blood Venipuncture / Unknown 05/26/2024 3:42 PM CDT 05/26/2024 3:42 PM CDT Federica Pittman APRN, CNP LAB_1 [facility] [address] [place] [phone] [address] [place] [phone] * Comp Metabolic Panel (05/26/2024 3:42 PM CDT) Sodium 137 136 - 145 mmol/L 05/27/2024 10:50 AM CDT [facility] Potassium 3.5 3.5 - 5.1 mmol/L 05/27/2024 10:50 [facility] Chloride 99 98 - 109 mmol/L 05/27/2024 10:[address] [facility] CO2 27 20 - 29 mmol/L 05/27/2024 10:[address] [facility] Anion Gap 11 6 - 16 mmol/L 05/27/2024 10:[address] [facility] Calcium 9.5 8.4 - 10.4 mg/dL 05/27/2024 10:[address] [facility] BUN 12 7 - 26 mg/dL 05/27/2024 10:[address] [facility] Creatinine 1.01 0.55 - 1.02 mg/dL 05/27/2024 10:[address] [facility] Alkaline Phosphatase 117 40 - 150 U/L 05/27/2024 10:[address] [facility] AST (SGOT) 40 10 - 40 U/L 05/27/2024 10:[address] [facility] ALT (SGPT) 45 <=55 U/L 05/27/2024 10:[address] [facility] Bilirubin, Total 0.4 0.2 - 1.2 mg/dL 05/27/2024 10:[address] [facility] Protein, Total 7.9 6.4 - 8.3 g/dL 05/27/2024 10:[address] [facility] Albumin 3.9 3.5 - 5.0 g/dL 05/27/2024 10:[address] [facility] Glucose 97 70 - 100 mg/dL 05/27/2024 10:[address] [facility] Comment:The given reference range is for the fasting state. Non-fasting reference range for glucose is 70 - 180 mg/dL. GFR, Estimated >60 >60 mL/min/1.7 3m2 05/27/2024 10:[address] [facility] Hours Fasting 21.5 8 - 12 Hours 05/27/2024 10:[address] [facility] Blood Venipuncture / Unknown 05/26/2024 3:42 PM CDT 05/26/2024 3:42 PM CDT Federica Pittman APRN, WAREHOUSE FREIGHT HANDLER LAB_1 [facility] [address] [place] [phone] [address] [place] [phone] * TSH (05/26/2024 3:42 PM CDT) [facility] TSH, Sensitive 3.59 0.30 - 4.50 uIU/mL 05/26/2024 9:12 PM CDT [facility] Blood Venipuncture / Unknown 05/26/2024 3:42 PM CDT 05/26/2024 3:42 PM CDT Federica Pittman APRN, CNP LAB_1 Performing Organization Address City/[facility] Co de Phone Number [facility] [address] [place] [address] * Hepatitis C Antibody, with Reflex (05/26/2024 3:42 PM CDT) [facility] Hepatitis C Antibody Negative (Non Reactive) Negative (Non Reactive) 05/26/2024 9:12 PM CDT [facility] Comment:Antibodies to HCV no t detected. Does not exclude the possiblity of exposure to HCV. Blood Venipuncture / Unknown 05/26/2024 3:42 PM CDT 05/26/2024 3:42 PM CDT Federica Pittman APRN, CNP LAB_1 Performing Organization Address [facility]/ZIP Co de Phone Number [facility] [address] [place] [address] * (ABNORMAL) Hgb A1C (Expected: Now) - Collect in Lab (05/26/2024 3:42 PM CDT) [facility] Hemoglobin A1C 5.9(H) <=5.6 % 05/27/2024 9:55 AM CDT [facility] Estimated Average Glucose (Calc) 123 < 117 mg/dL 05/27/2024 9:55 AM CDT [facility] Comment:Estimated average gl ucose (eAG) converts A1c into glucose units (mg/dL) and estimates average glucose over the past approximately 3 months. The eAG reference interval (<117 mg/dL) corresponds to an A1c of <5.7%. Blood Venipuncture / Unknown 05/26/2024 3:42 PM CDT 05/26/2024 3:42 PM CDT [facility] - 05/27/2024 9:55 AM CDT For patients not previously diagnosed with diabetes: 5.7-6.4%: Increased risk for diabetes 6.5% and greater: Diagnostic for diabetes For patients diagnosed with diabetes: <8.0%: Goal of therapy for ages 18-75 Clinicians may recommend a higher or lower goal for specific individuals. Federica Pittman APRN, CNP LAB_1 Performing Organization Address [facility] Co de Phone Number [facility] [address] [place] [address], [facility] * (ABNORMAL) THC (Marijuana) Metab Confirm, Urine (03/18/2024 3:24 PM CDT) Pathologist [facility] Marijuana Metabolite, urine Confirmed Positive(A) Not Detected 03/23/2024 10:09 AM CDT [facility] Urine Non-blood Collection / Unknown 03/18/2024 3:24 PM CDT 03/18/2024 3:24 PM CDT [facility] - 03/23/2024 10:09 AM CDT The absence [...] developed and its performance characteristics validated by [facility]. It has not been cleared nor approved by the FDA. Federica Pittman APRN, CNP LAB_1 Performing Organization Address [facility]/ZIP Co de Phone Number [address] [address], [facility] * (ABNORMAL) Rapid Pain Management Panel Urine No (03/18/2024 3:24 PM CDT) [facility] Amphetamines Screen Not Detected Not Detected 03/18/2024 8:58 PM CDT [facility] Is patient prescribed amphetamines (i.e. Adderall)? No 03/18/2024 8:58 PM CDT [facility] Is the patient prescribed methylphenidate (i.e. Ritalin)? No 03/18/2024 8:58 PM CDT [facility] Barbiturates Screen Not Detected Not Detected 03/18/2024 8:58 PM CDT [facility] Is patient prescribed barbiturates? No 03/18/2024 8:58 PM CDT [facility] Benzodiazepines Screen Not Detected Not Detected 03/18/2024 8:58 PM CDT [facility] Is patient prescribed benzodiazepine? No 03/18/2024 8:58 PM CDT [facility] Buprenorphine Screen Not Detected Not Detected 03/18/2024 8:58 PM CDT [facility] Is patient prescribed buprenorphine? No 03/18/2024 8:58 PM CDT [facility] Cocaine Metabolite Screen Not Detected Not Detected 03/18/2024 8:58 PM CDT [facility] Methadone Screen Not Detected Not Detected 03/18/2024 8:58 PM CDT [facility] Is patient prescribed methadone? No 03/18/2024 8:58 PM CDT [facility] Opiates Screen Not Detected Not Detected 03/18/2024 8:58 PM CDT [facility] Is patient prescribed opiates? No 03/18/2024 8:58 PM CDT [facility] Oxycodone Screen Not Detected Not Detected 03/18/2024 8:58 PM CDT [facility] Is patient prescribed oxycodone? No 03/18/2024 8:58 PM CDT [facility] Is patient prescribed THC? No 03/18/2024 8:58 PM CDT [facility] Phencyclidine (PCP) Screen Not Detected Not Detected 03/18/2024 8:58 PM CDT [facility] THC (Marijuana) Metab Screen Presumptive Positive(A) Not Detected 03/18/2024 8:58 PM CDT [facility] Creatinine, Urine, Random 30 >20 mg/dL 03/18/2024 8:58 PM CDT [facility] Urine Non-blood Collection / Unknown 03/18/2024 3:24 PM CDT 03/18/2024 3:24 PM CDT Narrative [facility] - 03/18/2024 8:58 PM CDT The [...] Pittman APRN, CNP LAB_1 Performing Organization Address [facility] Co de Phone Number [facility] [address] [place], [place] [address] [address] [place] [phone] * ECG 12 Lead Outpatient (03/18/2024 2:47 PM CDT) Ventricular Rate 82 BPM [facility] Atrial Rate 82 BPM [facility] P-R Interval 184 ms [facility] QRS Duration 90 ms [facility] QT 396 ms [facility] QTc 462 ms [facility] P Cisco 64 degrees [facility] R Cisco -7 degrees [facility] T Cisco 54 degrees [facility] 03/18/2024 2:47 PM [...] PN ECG ORDERABLE S Performing Organization Address City/[facility] Co de Phone Number [facility] [address] [place] [address] from Last 3 Months Care Teams Dough Panner Relationship Specialty Start Date End Date Needs Pcp, [place] [address] PCP - General 11/15/21
== END 2024-06-10 13:59 | disposition home or self-care (01) ==
LOC: NFLDREF 06-14 07:04
PROVIDERS: PCP Nurse Practitioner Family; Referring Provider Nurse Practitioner Family; Visit Provider Nurse Practitioner Family
DX: N30.00 Acute cystitis without hematuria (principal); N39.0 Urinary tract infection, site not specified
CPT/HCPCS: 87086; 87186

== ENCOUNTER 2024-08-26 17:15 | Outpatient (CLI) | payer OTHER, SELFPAY | END 2024-08-26 17:16 | disposition home or self-care (01) | LOC: NFLDREF 08-31 01:17 | PROVIDERS: PCP Nurse Practitioner Family; Referring Provider Nurse Practitioner Family; Visit Provider Nurse Practitioner Family | DX: R19.7 Diarrhea, unspecified (principal) | CPT/HCPCS: 87505 ==

== ENCOUNTER 2024-10-02 13:52 | Emergency (ER) | payer OTHER, SELFPAY ==
--- OUTSIDE RECORDS SUMMARY | 2024-10-02 13:54 | XMS_ITS | Encounter Summary ---
Author Organization [facility] Address [address], [place] [address] Care Team Providers Care Director Nursing Service Name Role Phone Needs Pcp, Assignment Primary Care Provider [phone] Reason for Visit * Reason Comments Abdominal Pain Diarrhea Encounter Details Date Type Department Care Team (Late st Contact Info) Description 08/19/2024 10:00 AM CATERING COOK Office Visit [place] [address] [facility] [address] [place] [address] Andrea Don, LIGHT RAIL TRANSIT OPERATOR, BIOLOGY FACULTY MEMBER [address] [place] [address] Diarrhea, unspecified type Social History Tobacco Use Types Packs/Day Years [...] any time in the past [address] [facility], were you homeless or living in a longterm (including now)? No 05/26/2024 Financial Resource Strain [...] or from getting your medications? No 024 Comments No Sex and Gender Information Value Date Recorded Sex Assigned at Not on file Legal Sex Female 4:30 AM CDT Gender Identity Not on file Sexual Orientation Not on file documented as of this encounter Last Filed Vital Signs Vital Sign Reading Time Taken Comments Blood Pressure 139/78 08/19/2024 9:47 AM CATERING COOK Pulse 93 08/19/2024 9:47 AM CATERING COOK Temperature 36.9 C (98.5 F) 08/19/2024 9:47 AM CATERING COOK Respiratory Rate 14 08/19/2024 9:47 AM CATERING COOK Oxygen Saturation 99% 08/19/2024 9:47 AM CATERING COOK Inhaled Oxygen Concentration - - Weight - - Height - - Body Mass Index - - documented in this encounter Patient Instructions * Patient Instructions* Andrea Don APRN, CNP - 08/19/2024 10:00 AM CATERING COOK *Take Imodium. Use as directed. *Eat a bland diet. *Keep Yourself well hydrated. Drink plenty of fluids may use sport drinks. Try to avoid things witha lot of sugar. *Take probiotics (enteric coated) RING COOK * Attachments The following attachments cannot be sent through Care Everywhere. * Diarrhea (Macedonian) documented in this encounter Progress Notes * Andrea Don APRN, CNP - 08/19/2024 10:00 AM CST Patient ID Lizzie He 1965 Chief Complaint Patient presents with Abdominal Pain Diarrhea SUBJECTIVE: 58 y.o. female presents with diarrhea. She notes that diarrhea started on Thursday. She took Imodium that day and symptoms gradually improved over the next couple of days she felt better yesterday and developed diarrhea again today. Has not taken any medications for this. Notes that she has had a stomach ulcer in the past but denies any significant abdominal pain. No bleeding. Pain is only when shehas diarrhea. Last episode was shortly prior to arrival. No blood in stool. No recent travel. No recent antibiotic use. No one around her has similar symptoms. No other concerns or complaints. Past medical and surgical history reviewed on EMR. Medications reviewed on EMR Allergies Allergen Reactions Sulfamethoxazole-Trimethoprim Nausea Stomach pain and nausea Amoxicillin-Pot Clavulanate Rash Cefuroxime Rash Nitrofurantoin Rash Pruritic rash ROS: As noted in HPI, all other systems are negative OBJECTIVE: Patient Vitals for the past 24 hrs: BP Temp Temp src Pulse Resp SpO2 08/19/24 0947 139/78 36.9 ??C (98.5 ??F) Oral 93 14 99 % General: Alert, No obviousdiscomfort, well kept Eyes: No scleral icterus or conjunctival injection ENT: Moist mucus membranes, Normal voice Resp: No cough, normal work of breathing,. Good air movement CV: Normal rate GI: Abdomen soft and non-distended. Normoactive BS. Non-tender, , No distention, No CVA tenderness,and Non-surgical without peritoneal features Skin: Warm, dry. No rashes or petechiae Musculoskeletal: Normal gross ROM Neuro: Alert and oriented to person/place/time, normal sensation Psychiatric: Normal affect, cooperative, good eye contact LABS: No results found for any visits on 08/19/24. IMAGING: No results found. Urgent Care treatments: Outpatient Encounter Medications as of 08/19/2024 Medication Sig Dispense Refill ARIPiprazole (ABILIFY) 2 [...] mg) by mouth daily. 90 Tablet 3 desvenlafaxine (PRISTIQ) 100 MG 24 hour release tablet Take 1 Tablet (100 mg) by mouth daily. gabapentin (NEURONTIN) 300 MG capsule Take 1 Capsule (300 mg) by mouth three times a day. ketoconazole (NIZORAL) 2 % cream Apply topically daily. 30 g 11 levothyroxine (SYNTHROID) 112 MCG tablet Take 1 Tablet (112 mcg) by mouth daily. 90 Tablet 3 metroNIDAZOLE (METROCREAM) 0.75 % cream Apply topically two times a day. For use on perioral dermatitis. 45 g 11 metroNIDAZOLE (METROGEL) 1 % gel Apply topically daily. Periorbital dermatitis, 60 g 3 mupirocin (BACTROBAN) 2 % ointment Apply topically three times a day. pimecrolimus (ELIDEL) 1 % cream Apply topically two times a day. To facial rash. STEROID FREE. 30 g11 rosuvastatin (CRESTOR) 20 MG tablet Take 1 Tablet (20 mg) by mouth daily at bedtime. 90 Tablet 3 triamcinolone acetonide (KENALOG) 0.1 % cream Apply topically three times a day. verapamil (CALAN SR) 120 MG controlled release tablet Take 1 Tablet (120 mg) by mouth daily. 90 Tablet 3 verapamil (VERELAN) 240 MG 24 hour release capsule Take 1 Capsule (240 mg) by mouth every evening. 90 Capsule 3 No facility-administered encounter medications on file as of 08/19/2024. ASSESSMENT: Lizzie He is a 58 y.o. female presents for evaluation of diarrhea. Examination shows no sign of surgical abdomen. Given the duration of symptoms I will obtain a stool culture the collectingkit was given to patient they will return after they are able to collect a sample. I have advised him on appropriate dietary changes. May try [id number]-[id number] medications such as Imodium. At this point there was no indication for antibiotics. Concerning signs and symptoms as well as return protocols were discussed. Patient is a to be safe and bit for outpatient management follow-up and is discharged home. Diagnosis and Associated Orders ICD-10-CM 1. Diarrhea, unspecified type R19.7 Enteric Stool Pathogens Panel PLAN: Follow up with primary care physician in 3 - 5 days or sooner if symptoms worsen, go to the ER if worsening or if further concerns. RING COOK documented in this encounter Nursing Notes * Liane Campbell RN - 08/19/2024 10:00 AM CST Lizzie He is a 58 y.o.female presents to the Urgent Care for Abdominal Pain and Diarrhea . Diarrhea starting on Thursday. Generalized periumbilical abdominal pain. Diarrhea is worse today thanit had been. Has already had 6 episodes. Loss of appetite. No fevers or vomiting. Has had stomach ulcer in the past. RING COOK documented in this encounter Plan of Treatment Upcoming Encounters Date Type Department Care Team (Late st Contact Info) Description 06/19/2025 10:45 AM CATERING COOK Appointment [place] [address] [place] [address] [phone] Milly Brown MD [address] [place] [address] [phone] Scheduled Orders Name Type Priority Associated Diagnoses Orde r Schedule Enteric Stool Pathogens Panel Microbiology Routine Diarrhea, unspecified type Expected: 08/19/2024, Expires: 11/17/2024 documented as of this encounter Visit Diagnoses Diagnosis Diarrhea, unspecified type documented in this encounter Care Teams Director Nursing Service Relationship Specialty Start Date End Date Needs Pcp, Assignment [place], [place] [id number] PCP - General 11/15/21 documented as of this encounter
--- OUTSIDE RECORDS SUMMARY | 2024-10-02 13:54 | XMS_ITS | Clinical Summary ---
Author Organization [employer] Address [address] [place] [address] Care Team Providers Care Dental Treatment Coordinator Name Role Phone Needs Pcp, Assignment Primary Care Provider [phone] Source Comments You are receiving this document as you are listed as the primary care provider,follow-up provider, or the patient has been referred to you for consultation.This is in compliance with the Medicare and[facility] Hospitalca[facility] EHR Incentive Program,which states Providers who transition their patient to another setting of careor provider of care or refers their patient to another provider of care shouldprovide summary care record for each transition of care or referral. [facility] Allergies Active Allergy Reactions Criticality Noted Date Comments Amoxicillin-Pot Clavulanate Rash Low 05/08/20 16 Cefuroxime Rash Low 05/08/2016 Nitrofurantoin Rash Low 05/08/2016 Pruritic rash Sulfamethoxazole-Trimethoprim Nausea 2015 Stomach pain and nausea Medications ARIPiprazole (ABILIFY) 2 MG tablet Take 1 Tablet (2 mg) by mouth daily. 10/16/19 22 Active desvenlafaxine (PRISTIQ) 100 MG 24 hour release tablet Take 1 Tablet (100 mg) by mouth daily. 10/16/19 22 Active gabapentin (NEURONTIN) 300 MG capsule Take 1 Capsule (300 mg) by mouth three times a day. 10/20/19 22 Active cetirizine (ZYRTEC) 10 MG tablet Take 1 Tablet (10 mg) by mouth daily. 30 Tablet 11/13/19 22 Active buPROPion (WELLBUTRIN XL) 150 MG 24 hour release tablet Take 1 Tablet (150 mg) by mouth daily. 02/02/20 24 Active mupirocin (BACTROBAN) 2 % ointment Apply topically three times a day. 12/06/19 24 Active triamcinolone acetonide (KENALOG) 0.1 % cream Apply topically three times a day. 12/06/19 24 Active metroNIDAZOLE (METROGEL) 1 % gelIndications:Per iorbital dermatitis Apply topically daily. Periorbital dermatitis, 60 g 3 05/11/20 24 Active chlorthalidone (HYGROTON) 25 MG tabletIndications: Hypertension, unspecified type (HRC) Take 1 Tablet (25 mg) by mouth daily. 90 Tablet 3 05/26/20 24 Active rosuvastatin (CRESTOR) 20 MG tabletIndications: Hyperlipidemia, unspecified hyperlipidemia type (HRC) Take 1 Tablet (20 mg) by mouth daily at bedtime. 90 Tablet 3 05/26/20 24 Active verapamil (CALAN SR) 120 MG controlled release tabletIndications: SVT (supraventricular tachycardia) (HRC) Take 1 Tablet (120 mg) by mouth daily. 90 Tablet 3 05/26/20 24 Active verapamil (VERELAN) 240 MG 24 hour release capsuleIndications :SVT (supraventricular tachycardia) (HRC) Take 1 Capsule (240 mg) by mouth every evening. 90 Capsule 3 05/26/20 24 025 Active levothyroxine (SYNTHROID) 112 MCG tabletIndications: Hypothyroidism, unspecified type (HRC) Take 1 Tablet (112 mcg) by mouth daily. 90 Tablet 3 05/31/20 24 Active ketoconazole (NIZORAL) 2 % creamIndications:I ntertrigo Apply topically daily. 30 g 11 06/16/20 24 Active metroNIDAZOLE (METROCREAM) 0.75 % creamIndications:P erioral dermatitis Apply topically two times a day. For use on perioral dermatitis. 45 g 11 06/16/20 24 Active pimecrolimus (ELIDEL) 1 % creamIndications:P erioral dermatitis Apply topically two times a day. To facial rash. STEROID FREE. 30 g 11 08/15/19 25 Active doxycycline monohydrate (MONODOX) 100 MG capsuleIndications :Perioral dermatitis Take 1 Capsule (100 mg) by mouth two times a day. For 6 weeks. Take with food. 84 Capsule 09/01/19 25 Active Active Problems Problem Noted Date Diagnosed Date Spondyloarthropathy 08/19/2024 Anxiety 03/18/2024 Adenomatous colon polyp 03/18/2024 Calculus of ureterovesical junction (UVJ) 2023 Closed head injury 03/18/2024 Hypertension 03/18/2024 Overview (05/26/2024): Patient denies this diagnosis. Hyperlipidemia 03/18/2024 SVT (supraventricular tachycardia) 03/18/2024 Fibromyalgia 10/09/2019 Depression, major, single episode, severe 2019 Generalized anxiety disorder 10/09/2019 Vertigo 10/09/2019 Family history of colonic polyps 11/26/2018 Cervical radiculopathy 05/27/2017 Cerebrovascular accident (CV A) due to thrombosis of cerebral artery 04/30/2016 Overview (05/26/2024): Treated tPA. Resolution of symptoms. Acute low back pain 10/01/2015 Peripheral neuropathic pain 06/25/2015 Ankylosing spondylitis 11/28/2013 Sacroiliitis, not elsewhere classified 4 Encounter for long-term (cur rent) use of high-risk medication 10/03/2013 Overview (08/19/2024): 1. Oxycodone/acetaminophen 5/325 mg 1-2 orally every 8 hrs as needed (#180 monthly with notion to decrease to 90 per month over a period of months) [facility]acy Name: [facility] Chronic pain 06/06/2010 Overview (03/18/2024): See scanned document: 06/06/2010 More than 12 prescriptions of controlled substances from different providers per [employer] Pure hypercholesterolemia 02/20/2010 Chronic depression 11/10/2009 Hypothyroidism 11/10/2007 Migraine headache 11/20/2006 Esophageal reflux 11/20/2006 Displacement of cervical int ervertebral disc without myelopathy 04/30/2006 Palpitations 03/08/2006 Major depressive disorder, r ecurrent severe without psychotic features Bilateral primary osteoarthritis of knee Resolved Problems Problem Noted Date Diagnosed Date Resolved Date Tobacco dependence 08/30/2015 Encounters Date Type Department Care Team Description 08/31/2024 10:45 AM SOLAR ENERGY TECHNICIAN E-Visit [place] [address] [place] [phone] Milly Brown MD Dx: Perioral dermatitis (Primary Dx) 08/19/2024 10:00 AM SOLAR ENERGY TECHNICIAN Office Visit [place] [address] [facility] [address] [place] [address] Andrea Don, GENERAL HANDLING SUPERVISOR, TREATMENT SPECIALIST Diarrhea, unspecified type 08/14/2024 2:55 PM SOLAR ENERGY TECHNICIAN E-Visit [place] [address] [place] [address] Milly Brown MD Dx: Perioral dermatitis (Primary Dx) from Last 3 Months Immunizations Immunization Administration Dates Next Due Flu Vac (18-64 Yrs), Intradermal 05/07/2020 Flu Vac (3+ yrs) 04/27/2017, 3,05/12/2013,2011,05/05/2011,06/10/2010,06/11/2009,1 08/12/2007 Flu Vac Preserv Free (3+yrs) 05/04/2024 Fluzone Qiv Multidose Vial 0 .25 (6-35 Mos) 05/05/2018,06/15/2014 [id number] 06/28/2009 Influenza IIV4 (Quadrivalent ) 0.5mL ([id number]) 05/04/2023,04/30/2022,04/29/2021,2019,05/02/2019,05/05/2018,04/27/2017,1 09/05/2015,06/29/2015,06/18/2015, 014,05/12/2013,05/10/2012,05/05/2011,,06/28/2009 Influenza, Unspecified Formulation 07/09/2016,,05/10/2010 Moderna COVID-19 12+ 06/03/2023 PCV13 (Prevnar) 07/20/2013 PPSV23 (Pneumovax) 07/20/2013,01/01/2011 Pfizer COVID-19 12+ 05/04/2024 Pfizer Monovalent 12+ Purple Top 05/14/2021,08/11,08/08/2020 Td 09/13/2004 Tdap 10/09/2014 Zoster RZV (Shingrix) 03/23/2024 Family History Medical History Relation Name Comments Asthma Father Bill Diabetes Father Bill High Cholesterol Father Bill Hypertension Father Dennis Depression Mother Alice High Cholesterol Mother Alice Cancer Paternal Uncle Teto Dad's twin Relation Name Status Comments Father Dennis Mother Alice Paternal Uncle Teto Social History [...] any time in the past 12 m [facility], were you homeless or living in a alf (including now)? No 05/26/2024 Financial Resource Strain [...] Comments Blood Pressure 139/78 08/19/2024 9:47 AM SOLAR ENERGY TECHNICIAN Pulse 93 08/19/2024 9:47 AM SOLAR ENERGY TECHNICIAN Temperature 36.9 C (98.5 F) 08/19/2024 9:47 AM SOLAR ENERGY TECHNICIAN Respiratory Rate 14 08/19/2024 9:47 AM SOLAR ENERGY TECHNICIAN Oxygen Saturation 99% 08/19/2024 9:47 AM SOLAR ENERGY TECHNICIAN Inhaled Oxygen Concentration - - Weight 105.2 kg (232 lb) 05/26/2024 1:14 PM CDT Height 172.7 cm (5' 8) 05/26/2024 1:14 PM CDT Body Mass Index 35.28 05/26/2024 1:14 PM CDT Plan of Treatment Upcoming Encounters Date Type Department Care Team (Late st Contact Info) Description 06/19/2025 10:45 AM SOLAR ENERGY TECHNICIAN Appointment [place] [address] [place] [phone] Milly Brown MD [address] [place], [place] [phone] Health Maintenance Due Date Last Done Comments Cervical Cancer Screening Due 1965 Colon Cancer Screening Plan Due 1965 HepB (1) 1984 Pneumococcal 50+ Yrs (3 of 3 - PCV20 or PCV21) 07/20/2018 07/20/2013, 07/20/2013, 01/01/2011 Mammogram 12/24/2019 12/23/2018, 12/08, 06/15/2017 DTaP/Tdap/Td (2 - Tdap) 10/09/2024 10/09/2014, 09/13 [...] Hep C Screening (Preventive Services) Completed 05/26/2024 Zoster/Shingles Completed 07/22/2024, 03/23/2024 HepA Aged Out No longer eligi ble based on patient's age to complete this topic Hib Aged Out No longer eligi ble based on patient's age to complete this topic IPV (Polio) Aged Out No longer eligi ble based on patient's age to complete this topic MCV4 Aged Out No longer eligi ble based on patient's age to complete this topic Meningococcal B Aged Out No longer el igible based on patient's age to complete this topic Procedures Procedure Name Priority Date/Time Associated Diagnosis Comments HGB A1C Routine 05/26/2024 3:42 PM CDT Screening for diabetes mellitus HEPATITIS C ANTIBODY, WITH REFLEX Routine 05/26/2024 3:42 PM CDT Need for hepatitis C screening test LIPID PANEL & DIRECT LDL (IF NEEDED) Routine 05/26/2024 3:42 PM CDT Hyperlipidemia, unspecified hyperlipidemia type (HRC) from Last 3 Months or Most Recently Relevant to Health Maintenance Results * (ABNORMAL) Lipid Panel and Direct LDL(If Needed) (05/26/2024 3:42 PM CDT) Cholesterol 321(H) 0 - 199 mg/dL 05/27/2024 10:50 AM CDT [facility] Triglyceride 136 <=149 mg/dL 05/27/2024 10:50 AM [facility] HDL Cholesterol 65 >=40 mg/dL 4 10:50 AM T [facility] LDL, Calculated 229(H) <130 mg/dL 4 10:50 AM T [facility] Non HDL Chol, Calculated 256(H) <=159 mg/dL 05/27/2024 10:50 AM CDT [facility] Cholesterol/HDL Ratio 4.9 <=5.0 05/27/2024 10:50 AM CDT [facility] Hours Fasting 21.5 8 - 12 Hours 05/27/2024 10:50 AM CDT [facility] Blood Venipuncture / Unknown 05/26/2024 3:42 PM CDT 05/26/2024 3:42 PM CDT Federica Pittman APRN, TREATMENT SPECIALIST LAB_1 Final Re sult Performing Organization Address City/[facility]/ZIP Co de Phone Number [facility] [address] [place] [address] [address] [place] [address] * Hepatitis C Antibody, with Reflex (05/26/2024 3:42 PM CDT) Pathologist [facility] Hepatitis C Antibody Negative (Non Reactive) Negative (Non Reactive) 05/26/2024 9:12 PM CDT [facility] Comment:Antibodies to HCV no t detected. Does not exclude the possiblity of exposure to HCV. Blood Venipuncture / Unknown 05/26/2024 3:42 PM CDT 05/26/2024 3:42 PM CDT Federica Pittman APRN, SACHA LAB_1 Final sult Performing Organization Address City/[facility]/ZIP Co de Phone Number [facility] [address] [place], [place] [phone] [place] [address] * (ABNORMAL) Hgb A1C (Expected: Now) - Collect in Lab (05/26/2024 3:42 PM CDT) Pathologist [facility] Hemoglobin A1C 5.9(H) <=5.6 % 05/27/2024 9:55 AM CDT [facility] Estimated Average Glucose (Calc) 123 < 117 mg/dL 05/27/2024 9:55 AM T [facility] Comment:Estimated average gl ucose (eAG) converts A1c into glucose units (mg/dL) and estimates average glucose over the past approximately 3 months. The eAG reference interval (<117 mg/dL) corresponds to an A1c of <5.7%. Blood Venipuncture / Unknown 05/26/2024 3:42 PM CDT 05/26/2024 3:42 PM CDT Narrative [facility] - 05/27/2024 9:55 AM CDT For patients not previously diagnosed with diabetes: 5.7-6.4%: Increased risk for diabetes 6.5% and greater: Diagnostic for diabetes For patients diagnosed with diabetes: <8.0%: Goal of therapy for ages 18-75 Clinicians may recommend a higher or lower goal for specific individuals. us Federica Pittman APRN, TREATMENT SPECIALIST LAB_1 Final Re sult [facility] [address] [place] [address], [facility] from Last 3 Months or Most Recently Relevant to Health Maintenance Insurance SELF INSURED SELF INSURED Care Teams Dental Treatment Coordinator Relationship Specialty Start Date End Date Needs Pcp, [place] [address] PCP - General 11/15/21
--- OUTSIDE RECORDS SUMMARY | 2024-10-02 13:54 | XMS_ITS | Encounter Summary ---
Author Organization [employer] Address [address], [place] [address] Care Team Providers Care Doll Maker Name Role Phone Needs Pcp, Assignment Primary Care Provider [phone] Reason for Visit * Reason Comments Medication Questions Entered automatical ly based on patient selection in [employer]. Encounter Details Date Type Department Care Team (Late st Contact Info) Description 08/31/2024 10:45 AM PICKLE MAKER E-Visit [place] [address] Dermatology [address] [place], [place] [phone] Milly Brown MD [address] [place] [address] Dx: Perioral dermatitis (Primary Dx) Social History Tobacco Use Types [...] any time in the past 12 m onths, were you homeless or living in a [...] as of this encounter Nursing Notes * Yesenia Vaughan RN - 09/01/2024 9:36 AM CST Images from the original note were not included. Rx sent, replied back to [facility] with recommendations, LCT ok if she wants to follow up. Patient was encouraged to call back nurses line for any further questions or concerns. Milly Brown MD Mohandas Desiree Care Team18 hours ago (3:30 PM) DM I would stop the elidel and offer oral doxycycline 100 mg BID x 6 weeks if she is amenable. Please call patient. Note LE MAKER LE MAKER * Yesenia Vaughan RN - 08/31/2024 3:03 PM CST LV: 06/16/24 FV: 06/19/25 PMH: Perioral dermatitis Head - Anterior (Face) - [place] inflammatory papules less than 1 mm in diameter clustered around the mouth with a rim of sparing above the vermilion border. Discussed with the patient that the appearance of the rash today is consistent with that of perioral dermatitis. The pathophysiology of perioral dermatitis was discussed, including the rationale thatit may be a related diagnosis to rosacea. Recommended topical metronidazole 0.75% cream to be used twice daily. Reviewed risks, benefits, alternatives. Recently switched her to elidel cream on 08/15/24 as metrocream has not been helpful, was also using triamcinolone (helped) per last e-visit. Patient Message, please adivse: E-Visit For Current Prescription (Mychart) Question 08/31/2024 10:34 AM PICKLE MAKER - Filed by Patient Prescription Pimecrolimus cream Taking as prescribed Yes Question about medication I want to give an update on my current medicine Update requested at last visit No Update on current medication I am using this and it is making the bumps turn into big red blotches and I'm breaking out more. Relevant information or photo attachment LE MAKER documented in this encounter Miscellaneous Notes * E-Visit Routing Comment - Milly Brown MD - 08/31/2024 3:30 PM PICKLE MAKER I would stop the elidel and offer oral doxycycline 100 mg BID x 6 weeks if she is amenable. Please call patient. LE MAKER documented in this encounter Plan of Treatment Upcoming Encounters Date Type Department Care Team (Late st Contact Info) Description 06/19/2025 10:45 AM PICKLE MAKER Appointment [place] [address] [place] [address] Milly Brown MD [address] [place] [address] documented as of this encounter Visit Diagnoses Diagnosis Perioral dermatitis- Primary Rosacea documented in this encounter Care Teams Doll Maker Relationship Specialty Start Date End Date Needs Pcp, [place] [address] PCP - General 11/15/21 documented as of this encounter
--- OUTSIDE RECORDS SUMMARY | 2024-10-02 13:54 | XMS_ITS | Encounter Summary ---
Author Organization [facility] Address [address] [place] [address] Care Team Providers Care Residential Appraiser Name Role Phone Harriet Haley MD Primary Care Provider +1 [phone] Reason for Visit * Reason Onset Date Comments Procedure 2015 LESI Encounter Details Date Type Department Care Team (Late st Contact Info) Description 2015 Telephone [facility] [address] [place] [address] Pain Management Program, [facility] Procedure (LESI) Social History Tobacco Use Types Packs/Day Years Used Date Smoking Tobacco: Former Cigarettes Q uit: 09/15/2015 Alcohol Use Standard Drinks/Week Comments Yes 0 (1 standard drink = 0.6 oz pur e alcohol) SMALL Comments No Sex and Gender Information Value Date Recorded Sex Assigned at Not on file Legal Sex Female 3:12 AM WASTE RECLAIMER Gender Identity Not on file Sexual Orientation Not on file documented as of this encounter Miscellaneous Notes * Telephone Encounter - Babita Rosado - 10/29/2015 9:32 AM CDT Called pt to schedule LESI, lvm. Babita Rosado Airway Traffic Controller [facility] * Telephone Encounter - Babita Rosado - 2015 8:37 AM CDT Called pt to schedule LESI, LVM. Babita Rosado Airway Traffic Controller [facility] [place] * Telephone Encounter - Alfreda Segura - 2015 8:14 AM CDT Order received from [facility] for TF LESI. Order scanned to telephone encounter, routing to scheduling coordinators to contact patient. Alfreda Segura Airway Traffic Controller [facility] documented in this encounter Plan of Treatment Not on file documented as of this encounter Visit Diagnoses Not on filedocumented in this encounter Care Teams Residential Appraiser Relationship Specialty Start Date End Date Harriet Haley MD [address] [address] PCP - General Physician Boat Outfitting Supervisor 10/01/15 documented as of this encounter
--- OUTSIDE RECORDS SUMMARY | 2024-10-02 13:55 | XMS_ITS | Encounter Summary ---
Author Organization [facility] Address [address] [place] [address] Care Team Providers Care Social Work Manager Name Role Phone Amor Montgomery MD Primary Care Provider +1- [phone] Nissa Cassidy DO Primary Care Provider U Harriet Stoner MD Primary Care Provider +1 -[phone] Encounter Details Date Type Department Care Team (Late st Contact Info) Description 01/27/[address] [place] [phone] Amor Montgomery MD [facility] [address] [place] [address] ER ENCOUNTER (Primary Dx) Social History Tobacco Use Types Packs/Day Years Used Date Smoking Tobacco: Former Cigarettes Q uit: 09/15/2015 Smokeless Tobacco: Never Alcohol Use Standard Drinks/Week Comments Yes 0 (1 standard drink = 0.6 oz pur e alcohol) SMALL Comments No Sex and Gender Information Value Date Recorded Sex Assigned at Not on file Legal Sex Female 3:12 AM TAP GRINDER Gender Identity Not on file Sexual Orientation Not on file documented as of this encounter Plan of Treatment Not on file documented as of this encounter Visit Diagnoses Diagnosis ER ENCOUNTER- Primary documented in this encounter Care Teams Social Work Manager Relationship Specialty Start Date End Date Amor Montgomery MD [facility] [address] [place] [address] PCP - General 09/24/01 05/05/13 Nissa Cassidy DO [facility] [address] [place] [address] PCP - General Internal Medicine 05/06/13 09/30/15 Harriet Haley MD [address] [address] PCP - General Physician Engineering Librarian 10/01/15 documented as of this encounter
--- OUTSIDE RECORDS SUMMARY | 2024-10-02 13:56 | XMS_ITS | Clinical Summary ---
Author Organization [facility] Address [address] [place] [address] Care Team Providers Care Group Leader Semiconductor Processing Name Role Phone Harriet Haley MD Primary Care Provider +1 [phone] Allergies Active Allergy Reactions Criticality Noted Date [...] prescribed intentionally due to {CHOOSE REASON BEFORE SIGNING!!!:021295 } Active order for DMEIndications: Pain of [...] migh t be different from the original. [email or web address] Problem Noted Date Diagnosed Date Chronic bilateral [...] on file Legal Sex Female 3:12 AM CLAM DIGGER Gender Identity Not on file Sexual Orientation Not on file Last Filed Vital Signs Vital Sign Reading Time Taken Comments Blood Pressure 133/88 06/28/2022 9:07 PM CLAM DIGGER Pulse 91 06/28/2022 9:07 PM CLAM DIGGER Temperature 36.7 C (98 F) 06/28/2022 9:07 PM CLAM DIGGER Respiratory Rate 16 06/28/2022 9:07 PM CLAM DIGGER Oxygen Saturation 95% 06/28/2022 9:07 PM CLAM DIGGER Inhaled Oxygen Concentration - - Weight 99.8 kg (220 lb) 09/23/2017 6:47 PM CLAM DIGGER Height 172.7 cm (5' 8) 09/28/2016 2:53 PM CLAM DIGGER Body Mass Index 33.45 09/28/2016 2:53 PM CLAM DIGGER Plan of Treatment Health Maintenance Due Date Last Done Comments ADVANCE CARE PLANNING 1965 ANNUAL REVIEW OF HM ORDERS 1965 CT COLONOGRAPHY 1965 FIT 1965 FLEX SIG 1965 MAMMO SCREENING 1965 sDNA (Cologuard) 1965 YEARLY PREVENTIVE VISIT 1968 COLONOSCOPY 10/26/1975 COLORECTAL CANCER SCREENING 10/26/1975 HIV SCREENING 1980 HEPATITIS C SCREENING 10/26/1983 HEPATITIS B IMMUNIZATION (1 of 3 - 19+ 3-dose series) 1984 PAP 1986 TSH W/FREE T4 REFLEX 03/11/2005 03/11/2004, 08/24/2003, 06/29/2003 LIPID 2005 LUNG CANCER SCREENING 10/26/2015 ZOSTER IMMUNIZATION (1 of 2) 10/26/2015 Pneumococcal Vaccine: 50+ Years (3 of 3 - PCV20 or PCV21) 07/20/2018 07/20/2013, 07/20/2013, 01/01/2011 URINE DRUG SCREEN 06/28/2023 06/28/2022 COVID-19 Vaccine ( season) 2024 05/14/2021, 08/29/2020, 08/08/2020 INFLUENZA VACCINE (#1) 2024 2, 04/29/2021, 05/07/2020, Additional history exists PHQ-2 (once per calendar year) 2024 10/10/2015 DTAP/TDAP/TD IMMUNIZATION (2 - Td or Tdap) 10/09/2024 10/09/2014, 09/13/2004 GLUCOSE 06/28/2025 06/28/2022, 06/10, 11/13/2015, Additional history exists HPV IMMUNIZATION Aged Out No longer e ligible based on patient's age to complete this topic MENINGITIS IMMUNIZATION Aged Out No l onger eligible based on patient's age to complete this topic Medical Devices Implanted Type Area Window Sash Installer Device Identifier Shelf Expiration Date Model / Serial / Lot Sling Sparc Urinary System [id number] Implanted:Qty : 1 on 11/05/2015 Stent N/A: Bladder ASTORA 06/15/2018 [id number] / / [id number] Kit Sling Lynx - [id number] Implanted:Qty : 1 on 02/20/2016 Stent N/A: Bladder [employer] 11/25/2018 [id number] / / [id number] C4-C5 Fusion Explanted Type Area Window Sash Installer Device Identifier Shelf Expiration Date Model / Serial / Lot Sparc Sling Explanted:2015 (Quantity not on file) Procedures Procedure Name Priority Date/Time Associated Diagnosis Comments URINE DRUG SCREEN STAT 06/28/2022 3: 56 PM CLAM DIGGER BASIC METABOLIC PANEL STAT 06/28/2022 2:40 PM CLAM DIGGER HCL TSH Routine 03/11/2004 9:36 AM CDT Hypothyroidism Nos from Last 3 Months or Most Recently Relevant to Health Maintenance Results * (ABNORMAL) Basic metabolic panel (06/28/2022 2:40 PM CLAM DIGGER) Sodium 135(L) 136 - 145 mmol/L 06/28/2022 3:25 PM CLAM DIGGER LABORATORY Potassium 3.9 3.4 - 5.3 mmol/L 06/28/2022 3:25 PM [facility] Comment:Specimen slightly he molyzed, potassium may be falsely elevated. Chloride 97(L) 98 - 107 mmol/L 06/28/2022 3:25 PM [facility] Carbon Dioxide (CO2) 28 22 - 29 mmol/L 06/28/2022 3:25 PM CLAM DIGGER LABORATORY Anion Gap 10 7 - 15 mmol/L 06/28/2022 3:25 PM [facility] Urea Nitrogen 16.1 6.0 - 20.0 mg/dL 06/28/2022 3:25 PM [facility] Creatinine 0.96(H) 0.51 - 0.95 mg/dL 06/28/2022 3:25 PM [facility] Calcium 9.4 8.6 - 10.0 mg/dL 06/28/2022 3:25 PM [facility] Glucose 93 70 - 99 mg/dL 06/28/2022 3:25 PM [facility] GFR Estimate 69 >60 mL/min/1.7 3m2 06/28/2022 3:25 PM [facility] Comment:Effective July 112020 eGFRcr in adults is calculated using the 2020 CKD-EPI creatinine equation which includes age and gender (Heather et al., NEJ, DOI: 10.1056/BETDoc9420079) Blood STRUCTURE OF RIGHT UPPER LIMB / Unknown Venipuncture / Unknown 06/28/2022 2:40 PM CLAM DIGGER 06/28/2022 2:52 PM CLAM DIGGER us Pastor Marino MD LAB - BLOOD ORDER NATALY Final Result LABORATORY [facility] [address] Lab (1st floor, no room number) [place] [address], [facility] [phone] * TSH- (03/11/2004 9:36 AM CDT) TSH 4.10 0.4 - 5.0 mU/L [facility] 03/11/2004 9:36 AM CDT 03/11/2004 9:41 AM CDT us Amor Montgomery MD LABORATORY Final Resu lt [facility] [address] [place] [address] from Last 3 Months or Most Recently Relevant to Health Maintenance Insurance [employer] Advance Directives For more information, please contact: [phone] * Full Code (Latest Code Status on File) Date Activated Date Inactivated Comments 10/03/2015 3:40 PM 06/28/2022 2:10 PM * Full Code Date Activated Date Inactivated Comments 10/01/2015 6:21 PM 10/03/2015 3:40 PM Care Teams Group Leader Semiconductor Processing Relationship Specialty Start Date End Date Harriet Haley MD [address] [facility] [address] [address] PCP - General Physician Filter Press Supervisor 10/01/15
[2024-10-02 14:07] VITALS: BP 133/81; PULSE 85; RESP 18; TEMP 36.8; O2SAT 99; BMI 33.1
[2024-10-02 14:14] LABS: Appearance Urine Clear (Clear); Bilirubin Urine Negative (Negative); Blood Urine Negative (Negative); Color Urine Yellow (Yellow); Glucose Urine Negative (Negative); Ketones Urine Negative (Negative); Leukocyte Esterase Urine Trace (Negative); Nitrite Urine Negative (Negative); Protein Urine Negative (Negative); Urobilinogen Urine 0.2 (0.2-1.0)
--- NOTE | 2024-10-02 14:19 | CRLHL7_ITS ---
For Patients: As a result of the Century Cures Act, medical imaging exams and procedure reports are released immediately into your electronic medical record. You may view this report before your referring provider. If you have questions, please contact your health care provider. INDICATION: Epigastric and left upper quadrant pain. TECHNIQUE: CT abdomen and pelvis acquired with 107 cc Isovue 370 IV contrast. COMPARISON: None. FINDINGS: Lower chest: Unremarkable. Liver: Unremarkable. Normal in size and attenuation. No suspicious masses. Gallbladder and bile ducts: Post cholecystectomy. Pancreas: Unremarkable. No mass or inflammation. Spleen: Unremarkable. Normal in size. No masses. Adrenal glands: Unremarkable. No nodules. Kidneys: Unremarkable. No suspicious masses, stones, or hydronephrosis. GI tract: Unremarkable. Normal in caliber. No sign of mass or inflammation. Vasculature: Abdominal aorta is normal in caliber. Mesenteric arteries are patent. Lymph nodes: No lymphadenopathy. Peritoneum/Abdominal Wall: A supraumbilical left paramidline fat containing ventral hernias present with mild inflammatory changes. No intra-abdominal fluid collection and no free air. Pelvis: Unremarkable. Bones: Relatively severe degenerative disc changes at L3-4. IMPRESSION: Supraumbilical left paramidline fat containing ventral hernia with mild inflammatory changes is likely responsible for the patient`s epigastric and left upper quadrant pain. No other acute or specific finding to explain abdominal pain. Please note that all CT scans at this facility use dose modulation, iterative reconstruction, and/or weight-based dosing when appropriate to reduce radiation dose to as low as reasonably achievable. Dictated by Michael Natarajan MD @ 10/02/2024 3:29:20 PM (Electronically Signed)
[2024-10-02 14:27] LABS: RBC Urine 0-2 (0-2); WBC Urine 0-2 (0-5)
[2024-10-02] MEDS: MORPHINE 4 MG/ML INJ IVP (14:31)
[2024-10-02 14:34] LABS: Basophils Absolute Auto 0.05 K/uL (0.00-0.30); Basophils Percent Auto 0.6 % (0.0-3.0); Eosinophils Absolute Auto 0.24 K/uL (0.00-0.50); Eosinophils Percent Auto 2.8 % (0.0-7.0); Hematocrit 38.5 % (33.0-51.0); Hemoglobin* 12.9 gm/dL (12.0-16.0); Immature Granulocytes Abs Auto 0.02 K/uL (0.00-0.30); Immature Granulocytes Pct Auto 0.2 %; Lymphocytes Absolute Auto 2.93 K/uL (0.90-2.90); Lymphocytes Percent Auto 33.9 % (20-44); Mean Corpuscular HGB Conc 34 gm/dL (32-36); Mean Corpuscular Hemoglobin 30 pg (26-34); Mean Corpuscular Volume 88 fL (80-100); Monocytes Percent Auto 7.6 % (0.0-11.0); Neutrophils Absolute Auto 4.74 K/uL (1.7-7.0); Neutrophils Percent Auto 54.9 % (42.0-72.0); Platelet Count* 342 K/uL (140-440); RDW Coefficient of Variation % 12.5 % (11.5-15.5); Red Blood Count 4.38 m/uL (4.00-5.20); White Blood Count* 8.64 K/uL (4.50-11.00)
[2024-10-02 14:35] VITALS: BP 114/68; PULSE 83; RESP 15; O2SAT 96
--- OUTSIDE RECORDS SUMMARY | 2024-10-02 14:40 | XMS_ITS | Encounter Summary ---
Author Organization [facility] Address [address] [address] [address] Team [address] Care [address] Scan Tech Name Role Phone Needs Pcp, Assignment Primary Care Provider [phone] Reason for Visit * Reason Comments Abdominal Pain Diarrhea Encounter Details Date Type Department Care Team (Late st Contact Info) Description 08/19/2024 10:00 AM CMV DRIVER Office Visit [facility] [facility] [address] [facility] [address] [place] [address] Andrea Don, CHICKEN AND FISH BUTCHER, THEATRICAL PERFORMER [address] [place] [address] Diarrhea, unspecified type Social History [...] were you homeless or living in a usp (including now)? No 05/26/2024 Financial Resource Strain [...] Comments Blood Pressure 139/78 08/19/2024 9:47 AM CMV DRIVER Pulse 93 08/19/2024 9:47 AM CMV DRIVER Temperature 36.9 C (98.5 F) 08/19/2024 9:47 AM CMV DRIVER Respiratory Rate 14 08/19/2024 9:47 AM CMV DRIVER Oxygen Saturation 99% 08/19/2024 9:47 AM CMV DRIVER Inhaled Oxygen Concentration - - Weight - - Height - - Body Mass Index - - documented in this encounter Patient Instructions * Patient Instructions* Andrea Don APRN, CNP - 08/19/2024 10:00 AM CMV DRIVER *Take Imodium. Use as directed. *Eat a bland diet. *Keep Yourself well hydrated. Drink plenty of fluids may use sport drinks. Try to avoid things witha lot of sugar. *Take probiotics (enteric coated) DRIVER * Attachments The following attachments cannot be sent through Care Everywhere. * Diarrhea (Faroese) documented in this encounter Progress Notes * [...] him on appropriate dietary changes. May try [id number]-[id number] medications such as Imodium. At this point [...] ER if worsening or if further concerns. DRIVER documented in this encounter Nursing Notes * [...] Has had stomach ulcer in the past. DRIVER documented in this encounter Plan of Treatment Upcoming Encounters Date Type Department Care Team (Late st Contact Info) Description 06/19/2025 10:45 AM CMV DRIVER Appointment [place] [address] [place] [id number] Milly Brown MD [address] [place] [address] Scheduled Orders Name Type Priority Associated Diagnoses Orde r Schedule Enteric Stool Pathogens Panel Microbiology Routine Diarrhea, unspecified type Expected: 08/19/2024, Expires: 11/17/2024 documented as of this encounter Visit Diagnoses Diagnosis Diarrhea, unspecified type documented in this encounter Care Teams Ct Scan Tech Relationship Specialty Start Date End Date Needs Pcp, Assignment [place], [place] [address] PCP - General 11/15/21 documented as of this encounter
--- OUTSIDE RECORDS SUMMARY | 2024-10-02 14:40 | XMS_ITS | Clinical Summary ---
Author Organization [facility] Address [address] [place] [address] Care Team Providers Care Planning Director Name Role Phone Harriet Haley MD Primary Care Provider +1 [phone] Allergies Active Allergy Reactions Criticality Noted Date [...] prescribed intentionally due to {CHOOSE REASON BEFORE SIGNING!!!:565765 } Active order for DMEIndications: Pain of [...] migh t be different from the original. [email or web address] Problem Noted Date Diagnosed Date Chronic bilateral [...] on file Legal Sex Female 3:12 AM TENNIS DESK TEAM MEMBER Gender Identity Not on file Sexual Orientation Not on file Last Filed Vital Signs Vital Sign Reading Time Taken Comments Blood Pressure 133/88 06/28/2022 9:07 PM TENNIS DESK TEAM MEMBER Pulse 91 06/28/2022 9:07 PM TENNIS DESK TEAM MEMBER Temperature 36.7 C (98 F) 06/28/2022 9:07 PM TENNIS DESK TEAM MEMBER Respiratory Rate 16 06/28/2022 9:07 PM TENNIS DESK TEAM MEMBER Oxygen Saturation 95% 06/28/2022 9:07 PM TENNIS DESK TEAM MEMBER Inhaled Oxygen Concentration - - Weight 99.8 kg (220 lb) 09/23/2017 6:47 PM TENNIS DESK TEAM MEMBER Height 172.7 cm (5' 8) 09/28/2016 2:53 PM TENNIS DESK TEAM MEMBER Body Mass Index 33.45 09/28/2016 2:53 PM TENNIS DESK TEAM MEMBER Plan of Treatment Health Maintenance Due Date [...] this topic Medical Devices Implanted Type Area Weed Cutter Device Identifier Shelf Expiration Date Model / Serial / Lot Sling Sparc Urinary System [id number] Implanted:Qty : 1 on 11/05/2015 Stent N/A: Bladder ASTORA 06/15/2018 [id number] / / [id number] Kit Sling Lynx - [id number] Implanted:Qty : 1 on 02/20/2016 Stent N/A: Bladder [employer] 11/25/2018 [id number] / / [id number] C4-C5 Fusion Explanted Type Area Weed Cutter Device Identifier Shelf Expiration Date Model / Serial / Lot Sparc Sling Explanted:2015 (Quantity not on file) Procedures Procedure Name Priority Date/Time Associated Diagnosis Comments URINE DRUG SCREEN STAT 06/28/2022 3: 56 PM TENNIS DESK TEAM MEMBER BASIC METABOLIC PANEL STAT 06/28/2022 2:40 PM TENNIS DESK TEAM MEMBER HCL TSH Routine 03/11/2004 9:36 AM CDT Hypothyroidism Nos from Last 3 Months or Most Recently Relevant to Health Maintenance Results * (ABNORMAL) Basic metabolic panel (06/28/2022 2:40 PM TENNIS DESK TEAM MEMBER) Sodium 135(L) 136 - 145 mmol/L 06/28/2022 3:25 PM TENNIS DESK TEAM MEMBER LABORATORY Potassium 3.9 3.4 - 5.3 mmol/L 06/28/2022 3:25 PM [facility] Comment:Specimen slightly he molyzed, potassium may be falsely elevated. Chloride 97(L) 98 - 107 mmol/L 06/28/2022 3:25 PM [facility] Carbon Dioxide (CO2) 28 22 - 29 mmol/L 06/28/2022 3:25 PM TENNIS DESK TEAM MEMBER LABORATORY Anion Gap 10 7 - 15 mmol/L 06/28/2022 3:25 PM [facility] Urea Nitrogen 16.1 6.0 - 20.0 mg/dL 06/28/2022 3:25 PM [facility] Creatinine 0.96(H) 0.51 - 0.95 mg/dL 06/28/2022 3:25 PM [facility] Calcium 9.4 8.6 - 10.0 mg/dL 06/28/2022 3:25 PM [facility] Glucose 93 70 - 99 mg/dL 06/28/2022 3:25 PM [facility] GFR Estimate 69 >60 mL/min/1.7 3m2 06/28/2022 3:25 PM [facility] Comment:Effective July 112020 eGFRcr in adults is calculated using the 2020 CKD-EPI creatinine equation which includes age and gender (Heather et al., NEJ, DOI: 10.1056/XXYVsu6917488) Blood STRUCTURE OF RIGHT UPPER LIMB / Unknown Venipuncture / Unknown 06/28/2022 2:40 PM TENNIS DESK TEAM MEMBER 06/28/2022 2:52 PM TENNIS DESK TEAM MEMBER us Pastor Marino MD LAB - BLOOD ORDER NATALY Final Result LABORATORY [facility] [address] Lab (1st floor, no room number) [place] [address], [facility] [phone] * TSH- (03/11/2004 9:36 AM CDT) TSH 4.10 0.4 - 5.0 mU/L [facility] 03/11/2004 9:36 AM CDT 03/11/2004 9:41 AM CDT us Amor Montgomery MD LABORATORY Final Resu lt [facility] [address] [place] [address] from Last 3 Months or Most Recently Relevant to Health Maintenance Insurance [place] Advance Directives For more information, please contact: [phone] * Full Code (Latest Code Status on File) Date Activated Date Inactivated Comments 10/03/2015 3:40 PM 06/28/2022 2:10 PM * Full Code Date Activated Date Inactivated Comments 10/01/2015 6:21 PM 10/03/2015 3:40 PM Care Teams Planning Director Relationship Specialty Start Date End Date Harriet Haley MD [address] [facility] [address] [address] PCP - General Physician Advanced Practice Registered Nurse 10/01/15
--- OUTSIDE RECORDS SUMMARY | 2024-10-02 14:40 | XMS_ITS | Encounter Summary ---
Author Organization [employer] Address [address] [address] Care Team Providers Care Tableau Report Developer Name Role Phone Needs Pcp, Assignment Primary Care Provider [phone] Reason for Visit * Reason Comments Medication Questions Entered automatical ly based on patient selection in [employer]. Encounter Details Date Type Department Care Team (Late st Contact Info) Description 08/31/2024 10:45 AM SUPERVISOR BILLPOSTING E-Visit [place] [address] Dermatology [address] [place], [place] [id number] Milly Brown MD [address] [place] [address] Dx: Perioral dermatitis (Primary Dx) [...] she is amenable. Please call patient. Note RVISOR BILLPOSTING RVISOR BILLPOSTING * Yesenia Vaughan RN - 08/31/2024 3:03 PM CST LV: 06/16/24 FV: 06/19/25 PMH: Perioral dermatitis Head - Anterior (Face) - Ken Caryl inflammatory papules less than 1 mm in [...] Current Prescription (Mychart) Question 08/31/2024 10:34 AM SUPERVISOR BILLPOSTING - Filed by Patient Prescription Pimecrolimus cream Taking as prescribed Yes Question about medication I want to give an update on my current medicine Update requested at last visit No Update on current medication I am using this and it is making the bumps turn into big red blotches and I'm breaking out more. Relevant information or photo attachment RVISOR BILLPOSTING documented in this encounter Miscellaneous Notes * E-Visit Routing Comment - Milly Brown MD - 08/31/2024 3:30 PM SUPERVISOR BILLPOSTING I would stop the elidel and offer oral doxycycline 100 mg BID x 6 weeks if she is amenable. Please call patient. RVISOR BILLPOSTING documented in this encounter Plan of Treatment Upcoming Encounters Date Type Department Care Team (Late st Contact Info) Description 06/19/2025 10:45 AM SUPERVISOR BILLPOSTING Appointment [place] [address] [place] [address] Milly Brown MD [address] [place] [address] documented as of this encounter Visit Diagnoses Diagnosis Perioral dermatitis- Primary Rosacea documented in this encounter Care Teams Tableau Report Developer Relationship Specialty Start Date End Date Needs Pcp, [place] [address] PCP - General 11/15/21 documented as of this encounter
--- OUTSIDE RECORDS SUMMARY | 2024-10-02 14:40 | XMS_ITS | Encounter Summary ---
Author Organization [facility] Address [address] [place] [address] Care Team Providers Care Assault Amphibious Vehicle Officer Name Role Phone Amor Montgomery MD Primary Care Provider [phone] Nissa Cassidy DO Primary Care Provider U Harriet Stoner MD Primary Care Provider [phone] Encounter Details Date Type Department Care Team (Late st Contact Info) Description 01/27/[address] [place] [phone] Amor Montgomery MD [employer] [address] [place] [address] ER ENCOUNTER (Primary Dx) Social History Tobacco Use Types Packs/Day Years Used Date Smoking Tobacco: Former Cigarettes Q uit: 09/15/2015 Smokeless Tobacco: Never Alcohol Use Standard Drinks/Week Comments Yes 0 (1 standard drink = 0.6 oz pur e alcohol) SMALL Comments No Sex and Gender Information Value Date Recorded Sex Assigned at Not on file Legal Sex Female 3:12 AM LINK TRAINER TEACHER Gender Identity Not on file Sexual Orientation Not on file documented as of this encounter Plan of Treatment Not on file documented as of this encounter Visit Diagnoses Diagnosis ER ENCOUNTER- Primary documented in this encounter Care Teams Assault Amphibious Vehicle Officer Relationship Specialty Start Date End Date Amor Montgomery MD [employer] [address] [place] [address] PCP - General 09/24/01 05/05/13 Nissa Cassidy DO [facility] [address] [address] PCP - General Internal Medicine 05/06/13 09/30/15 Harriet Haley MD [address] [address] PCP - General Physician Naval Designer 10/01/15 documented as of this encounter
--- OUTSIDE RECORDS SUMMARY | 2024-10-02 14:40 | XMS_ITS | Clinical Summary ---
Author Organization [employer] [employer] Address [address] [address] Care Team Providers Care Funeral Arrangement Director Name Role Phone Needs Pcp, Assignment Primary Care Provider [phone] Source Comments You are receiving this document as you are listed as the primary care provider,follow-up provider, or the patient has been referred to you for consultation.This is in compliance with the Medicare and[facility] EHR Incentive Program,which states Providers who transition their patient to another setting of careor provider of care or refers their patient to another provider of care shouldprovide summary care record for each transition of care or referral. mmCHANNEL Allergies Active Allergy Reactions Criticality Noted Date [...] Department Care Team Description 08/31/2024 10:45 AM TECHNICAL MANAGER [employer]ICAL PLANT E-Visit [place] [address] [place] [address] Milly Brown MD Dx: Perioral dermatitis (Primary Dx) 08/19/2024 10:00 AM TECHNICAL MANAGER CHEMICAL PLANT Office Visit [place] [address] [facility] [address] [place] [address] Andrea Don, COMPTROLLER, CARDIOVASCULAR SPECIALIST Diarrhea, unspecified type 08/14/2024 2:55 PM TECHNICAL MANAGER [employer]ICAL PLANT E-Visit [place] [address] [place] [address] Milly Brown MD Dx: Perioral dermatitis (Primary Dx) from Last 3 Months Immunizations Immunization Administration Dates Next Due Flu Vac (18-64 Yrs), Intradermal 05/07/2020 Flu Vac (3+ yrs) 04/27/2017, 3,05/12/2013,2011,05/05/2011,06/10/2010,06/11/2009,1 08/12/2007 Flu Vac Preserv Free (3+yrs) 05/04/2024 Fluzone Qiv Multidose Vial 0 .25 (6-35 Mos) 05/05/2018,06/15/2014 [id number] 06/28/2009 Influenza IIV4 (Quadrivalent ) 0.5mL (00541) 05/04/2023,04/30/2022,04/29/2021,2019,05/02/2019,05/05/2018,04/27/2017,1 09/05/2015,06/29/2015,06/18/2015, 014,05/12/2013,05/10/2012,05/05/2011,,06/28/2009 Influenza, Unspecified Formulation 07/09/2016,,05/10/2010 [...] any time in the past 12 m [facility], were you homeless or living in a half-way (including now)? No 05/26/2024 Financial Resource Strain [...] Comments Blood Pressure 139/78 08/19/2024 9:47 AM TECHNICAL MANAGER [employer]ICAL PLANT Pulse 93 08/19/2024 9:47 AM TECHNICAL MANAGER [employer] PLANT Temperature 36.9 C (98.5 F) 08/19/2024 9:47 AM TECHNICAL MANAGER [employer]ICAL PLANT Respiratory Rate 14 08/19/2024 9:47 AM TECHNICAL MANAGER [employer] PLANT Oxygen Saturation 99% 08/19/2024 9:47 AM TECHNICAL MANAGER [employer]ICAL PLANT Inhaled Oxygen Concentration - - Weight 105.2 kg (232 lb) 05/26/2024 1:14 PM CDT Height 172.7 cm (5' 8) 05/26/2024 1:14 PM CDT Body Mass Index 35.28 05/26/2024 1:14 PM CDT Plan of Treatment Upcoming Encounters Date Type Department Care Team (Late st Contact Info) Description 06/19/2025 10:45 AM TECHNICAL MANAGER CHEMICAL PLANT Appointment [place] [address] [place] [phone] Milly Brown MD [address] [place], [place] [id number] Health Maintenance Due Date Last Done Comments [...] - 199 mg/dL 05/27/2024 10:50 AM CDT [facility] Triglyceride 136 <=149 mg/dL 05/27/2024 10:50 AM [facility] HDL Cholesterol 65 >=40 mg/dL 4 10:50 AM T [facility] LDL, Calculated 229(H) <130 mg/dL 4 10:50 AM T [facility] Non HDL Chol, Calculated 256(H) <=159 mg/dL 05/27/2024 10:50 AM CDT [facility] Cholesterol/HDL Ratio 4.9 <=5.0 05/27/2024 10:50 AM CDT [facility] Hours Fasting 21.5 8 - 12 Hours 05/27/2024 10:50 AM CDT [facility] Blood Venipuncture / Unknown 05/26/2024 3:42 PM CDT 05/26/2024 3:42 PM CDT Federica Pittman APRN, CARDIOVASCULAR SPECIALIST LAB_1 Final Re sult Performing Organization Address City/[facility]/ZIP Co de Phone Number [facility] [address] [place] [address] [address] [place] [address] * Hepatitis C Antibody, with Reflex (05/26/2024 3:42 PM CDT) Pathologist [facility] Hepatitis C Antibody Negative (Non Reactive) Negative (Non Reactive) 05/26/2024 9:12 PM CDT [facility] Comment:Antibodies to HCV no t detected. Does not exclude the possiblity of exposure to HCV. Blood Venipuncture / Unknown 05/26/2024 3:42 PM CDT 05/26/2024 3:42 PM CDT Federica Pittman APRN, [facility] LAB_1 Final sult Performing Organization Address City/[facility]/ZIP Co de Phone Number [facility] [address] [place], [place] [id number] [place] [address] * (ABNORMAL) Hgb A1C (Expected: Now) - Collect in Lab (05/26/2024 3:42 PM CDT) Pathologist [facility] Hemoglobin A1C 5.9(H) <=5.6 % 05/27/2024 9:55 AM CDT ON LICENSE OF [facility] Estimated Average Glucose (Calc) 123 < 117 mg/dL 05/27/2024 9:55 AM T ON LICENSE OF [facility] Comment:Estimated average gl ucose (eAG) converts A1c into glucose units (mg/dL) and estimates average glucose over the past approximately 3 months. The eAG reference interval (<117 mg/dL) corresponds to an A1c of <5.7%. Blood Venipuncture / Unknown 05/26/2024 3:42 PM CDT 05/26/2024 3:42 PM CDT Narrative [facility] - 05/27/2024 9:55 AM CDT For patients not previously diagnosed with diabetes: 5.7-6.4%: Increased risk for diabetes 6.5% and greater: Diagnostic for diabetes For patients diagnosed with diabetes: <8.0%: Goal of therapy for ages 18-75 Clinicians may recommend a higher or lower goal for specific individuals. us Federica Pittman APRN, CARDIOVASCULAR SPECIALIST LAB_1 Final Re sult [facility] [address] [place] [address], [facility] from Last 3 Months or Most Recently Relevant to Health Maintenance Insurance SELF INSURED SELF INSURED Care Teams Funeral Arrangement Director Relationship Specialty Start Date End Date Needs Pcp, [place] [address] PCP - General 11/15/21
--- OUTSIDE RECORDS SUMMARY | 2024-10-02 14:40 | XMS_ITS | Encounter Summary ---
Author Organization [facility] Address [address] [place] [id number] Care Team Providers Care Electric Meter Setter Name Role Phone Harriet Haley MD Primary Care Provider [phone] Reason for Visit * Reason Onset Date Comments Procedure 2015 LESI Encounter Details Date Type Department Care Team (Late st Contact Info) Description 2015 Telephone [facility] [address] [place] [address] Pain Management Program, [facility] Procedure (LESI) Social History Tobacco Use Types Packs/Day Years Used Date Smoking Tobacco: Former Cigarettes Q uit: 09/15/2015 Alcohol Use Standard Drinks/Week Comments Yes 0 (1 standard drink = 0.6 oz pur e alcohol) SMALL Comments No Sex and Gender Information Value Date Recorded Sex Assigned at Not on file Legal Sex Female 3:12 AM STOCK MIXER Gender Identity Not on file Sexual Orientation Not on file documented as of this encounter Miscellaneous Notes * Telephone Encounter - Babita Rosado - 10/29/2015 9:32 AM CDT Called pt to schedule LESI, lvm. Babita Rosado [employer] [facility] [place] * Telephone Encounter - Babita Rosado - 2015 8:37 AM CDT Called pt to schedule LESI, LVM. Babita Rosado [employer] [facility] [place] * Telephone Encounter - Alfreda Segura - 2015 8:14 AM CDT Order received from [facility] for TF LESI. Order scanned to telephone encounter, routing to scheduling coordinators to contact patient. Alfreda Segura [employer] [facility] documented in this encounter Plan of Treatment Not on file documented as of this encounter Visit Diagnoses Not on filedocumented in this encounter Care Teams Electric Meter Setter Relationship Specialty Start Date End Date Harriet Haley MD [address] [address] PCP - General Physician Switch Maker 10/01/15 documented as of this encounter
[2024-10-02 14:41] LABS: Slide Review Reflex No
[2024-10-02 14:48] LABS: Albumin* 4.8 g/dL (3.3-5.0)
[2024-10-02 14:49] LABS: Chloride* 96 mmol/L (96-114); Potassium* 4.5 mmol/L (3.6-5.1); Sodium* 132 mmol/L (135-149)
[2024-10-02 14:51] LABS: Alkaline Phosphatase* 82 U/L (40-150); Anion Gap 7 mEq/L (7-15); Aspartate Amino Transferase* 47 U/L (12-35); Bilirubin Total* 1.2 mg/dL (0.1-1.5); Blood Urea Nitrogen* 11 mg/dL (7-30); Carbon Dioxide* 29 mmol/L (20-32); Creatinine* 0.7 mg/dL (0.5-1.5); Est. Creatinine Clearance* 88.37; Estimated Glomerular Filt Rate 100 ml/min; Total Protein* 8.1 g/dL (6.0-8.3)
[2024-10-02] MEDS: GI COCKTAIL (VISC LIDO/ANTACID) 30 ML PO (14:51)
[2024-10-02 14:52] LABS: Alanine Aminotransferase* 24 U/L (4-35); Calcium* 9.2 mg/dL (8.4-10.6); Glucose* 109 mg/dL (60-115); Lipase* 56 U/L (23-300)
[2024-10-02 15:04] LABS: Troponin I* 0.01 ng/mL (0.01-0.04)
[2024-10-02 15:11] LABS: PCR FLU A Negative PCR FLU A (Negative); PCR FLU B Negative PCR FLU B (Negative); PCR RSV Negative PCR RSV (Negative); SARS PCR* Negative SARS-CoV-2 (Negative)
--- NOTE | 2024-10-02 15:17 | ED.ABDPAIN ---
HPI - Abdominal Pain General Date Seen: 10/02/24 Chief Complaint: Abdominal Pain Stated Complaint: severe abd pain Time Seen by Provider: 10/02/24 14:10 Source: patient Mode of arrival: ambulatory Limitations: no limitations History of Present Illness HPI narrative: Patient is a 58-year-old female presenting for epigastric abdominal pain radiating to the left upper quadrant. Symptoms started this morning. Has not had any associated nausea or vomiting. Has been able to eat today without issues. Denies diarrhea, constipation, fevers, chills, dysuria, polyuria, chest pain, shortness of breath, weakness, numbness. Describes as a stabbing sensation. Pain is tolerable at rest but does get worse when she moves around. He states when she does move around the pain seems to be severe. Has never had pain like this before she states. No history of heart disease. She has been having normal was. Has not noticed any blood in her stool. No history of pancreatitis. Is not taking anything yet for pain. No other concerns noted Related Data Home Medications ?Medication ?Instructions ?Recorded ?Confirmed aripiprazole 2 mg tablet 2 mg PO DAILY 02/20/22 10/02/24 bupropion HCl 150 mg 24 hr tablet, 150 mg PO QAM 10/14/23 10/02/24 extended release desvenlafaxine succinate 100 mg 100 mg PO DAILY 10/14/23 10/02/24 tablet,extended release 24 hr desvenlafaxine succinate 25 mg 25 mg PO DAILY 10/14/23 10/02/24 tablet,extended release 24 hr gabapentin 400 mg capsule 400 mg PO 3XD 10/14/23 10/02/24 chlorthalidone 25 mg tablet 25 mg PO DAILY 02/17/24 10/02/24 verapamil 120 mg tablet,extended 120 mg PO DAILY 02/17/24 10/02/24 release omeprazole 40 mg capsule,delayed 40 mg PO DAILY 10/02/24 10/02/24 release potassium chloride 20 mEq 40 meq PO DAILY 10/02/24 10/02/24 tablet,extended release verapamil 240 mg 24 hr 240 mg PO QPM 10/02/24 10/02/24 capsule,extended release Previous Rx's ?Medication ?Instructions ?Recorded rosuvastatin 20 mg tablet See Rx Instructions .Route 01/02/23 .COMPLEX #90 tabs levothyroxine 112 mcg tablet 112 mcg PO DAILY #30 tabs 09/13/24 semaglutide (weight loss) 1 mg/0.5 1 mg (0.5 mL) subcut QWEEK #2 mL 07/20/24 mL subcutaneous pen injector ondansetron 4 mg disintegrating 4 mg PO Q6H #20 tabs 10/02/24 tablet oxycodone 5 mg tablet 5 mg PO Q6H PRN pain #12 tabs 10/02/24 Allergies Allergy/AdvReac Type Severity Reaction Status Date / Time amoxicillin (From Augmentin) Allergy Mild Hives Verified 10/02/24 14:08 clavulanic acid (From Allergy Mild Hives Verified 10/02/24 14:08 Augmentin) pneumococcal vaccine Allergy Mild Verified 10/02/24 14:08 cefuroxime Allergy Unknown Hives Verified 10/02/24 14:08 nitrofurantoin Allergy Unknown Verified 10/02/24 14:08 pregabalin Allergy Unknown Verified 10/02/24 14:08 sulfamethoxazole (From Allergy Unknown Verified 10/02/24 14:08 Sulfamethoxazole-Trimethoprim) trimethoprim (From Allergy Unknown Verified 10/02/24 14:08 Sulfamethoxazole-Trimethoprim) Review of Systems Status of ROS Reports: 10 or more systems reviewed and unremarkable except as noted in History and below PFSH PFS Medical History Prediabetes ?R73.03 - Prediabetes (ICD-10) Overweight ?E66.3 - Overweight (ICD-10) Urinary frequency ?R35.0 - Frequency of micturition (ICD-10) Surgical History Status post bilateral oophorectomy ?Z90.722 - Acquired absence of ovaries, bilateral (ICD-10) Status post hysterectomy ?Z90.710 - Acquired absence of both cervix and uterus (ICD-10) Status post cholecystectomy ?Z90.49 - Acquired absence of other specified parts of digestive tract (ICD-10) Status post cervical spinal fusion ?Z98.1 - Arthrodesis status (ICD-10) Status post ?Z98.891 - History of uterine scar from previous surgery (ICD-10) Status post appendectomy ?Z90.49 - Acquired absence of other specified parts of digestive tract (ICD-10) Family History Other Family history of breast cancer Family history of diabetes mellitus Social History Narrative: former smoker-quit 2019 Smoking Status: Former smoker What tobacco products do you use: cigarettes Smoking quit date/years: <= 15 years ago Do you use any of these nicotine containing products: None Second hand tobacco smoke exposure: No How often do you have a drink containing alcohol: never AUDIT-C Alcohol total score: 0 Non-prescribed substance use: denies use Exam Narrative: Exam Narrative: Const: Well-nourished, Well-developed, in mild distress Eyes: PERRL, no conjunctival injection, and symmetrical lids HENT: Atraumatic external nose and ears. Moist mucous membranes. Neck: Symmetric, trachea midline, No thyromegaly. CVS: RRR, No murmurs or gallops. Peripheral pulses 2+ and equal in all extremities RESP: Unlabored respiratory effort. Clear to auscultation bilaterally. GI: Epigastric and left upper quadrant tenderness, Nondistended, No rebound or guarding. MSK:Extremities w/o deformity, Normal Active ROM Skin: Warm, Dry. No rashes or lesions. Neuro: Normal Muscle tone, No focal neurological deficits. Psych: Awake, Alert, & Oriented x3. Appropriate mood and affect. Const: Vital Signs, click to edit/add: Vital Signs - 24 hr 10/02/24 14:07 Temperature 98.2 F Pulse Rate [Right Pulse Oximeter] 85 Respiratory Rate 18 Blood Pressure [Le ft Upper Arm] 133/81 Pulse Oximetry 99 Oxygen Delivery Me thod Room Air Course Vital Signs Vital signs: Initial Vital Signs Temperature 98.2 F 10/02/24 14:07 Temperature Source Temporal Artery Scan 10/02/24 14:07 Pulse Rate 85 10/02/24 14:07 Respiratory Rate 18 10/02/24 14:07 Blood Pressure 133/81 10/02/24 14:07 Blood Pressure Mean 98 10/02/24 14:07 Blood Pressure Position Sitting 10/02/24 14:07 Pulse Oximetry 99 10/02/24 14:07 Oxygen Delivery Method Room Air 10/02/24 14:07 Vital Signs Temperature 98.2 F 10/02/24 14:07 Pulse Rate 85 10/02/24 14:07 Respiratory Rate 18 10/02/24 14:07 Blood Pressure 133/81 10/02/24 14:07 Pulse Oximetry 99 10/02/24 14:07 Oxygen Delivery Method Room Air 10/02/24 14:07 Temperature 98.2 F 10/02/24 14:07 Pulse Rate 85 10/02/24 14:07 Respiratory Rate 18 10/02/24 14:07 Blood Pressure 133/81 10/02/24 14:07 Pulse Oximetry 99 10/02/24 14:07 Oxygen Delivery Method Room Air 10/02/24 14:07 Medications Administered Medications: Discontinued Medications Generic Name Dose Route Start Last Admin Trade Name Joshq PRN Reason Stop Dose Admin Lidocaine/Aluminum/Magnesium/Simeth 30 ml 10/02/24 14:44 10/02/24 14:51 Gi Cocktail (Visc Lido/Antacid) 30 Ml PO 10/02/24 14:45 30 ml ONCE ONE Administration Morphine Sulfate 4 mg 10/02/24 14:19 10/02/24 14:31 Morphine 4 Mg/Ml Inj IVP 10/02/24 14:20 4 mg ONCE ONE Administration MDM - Abdominal Pain MDM Narrative Medical decision making narrative: Patient is a 58-year-old female presenting to emergency department for abdominal pain. Is epigastric radiating to her left upper quadrant. Differential at this time includes small-bowel obstruction, pancreatitis, gastroenteritis. Due to location appendicitis, diverticulitis, gallbladder or liver disease seems less likely. This could also be uncommon presentation for ACS sore will order a troponin and EKG. CT scan ordered for better evaluation. Will also order COVID/flu/RSV, urinalysis, CBC, CMP, lipase. Lab work all returned showing no concerning abnormalities. EKG and troponin showed no concerning findings. Since symptoms have been going on since this morning and not believe repeat troponin is necessary. She was feeling better with the morphine but the GI cocktail did not help her at all. CT scan returned showing a supraumbilical hernia consistent with where her pain is. This is likely the cause of her pain. I try to palpate the area but cannot personally feel the hernia sac. This is likely due to her body habitus. She is also very tender in the same spot with were the hernia is seen. This is most likely the cause of her symptoms. I did speak to the on-call general surgeon, Dr. Dukes, at this time she is recommend discharge with outpatient follow-up with the patient can manage the pain at home with pain medication. Patient is agreeable to this plan. I will prescribe oxycodone. Will give her information to follow up with General surgery. Lab Data Labs: Lab Results 10/02/24 10/02/24 10/02/24 Range/Units 14:05 14:20 14:23 WBC 8.64 (4.50-11.00) K/uL RBC 4.38 (4.00-5.20) m/uL Hgb 12.9 (12.0-16.0) gm/dL Hct 38.5 (33.0-51.0) % MCV 88 (80-100) fL MCH 30 (26-34) pg MCHC 34 (32-36) gm/dL RDW Coeff of Deion 12.5 (11.5-15.5) % Plt Count 342 (140-440) K/uL Neut % (Auto) 54.9 (42.0-72.0) % Lymph % (Auto) 33.9 (20-44) % [place] % (Auto) 7.6 (0.0-11.0) % Eos % (Auto) 2.8 (0.0-7.0) % Baso % (Auto) 0.6 (0.0-3.0) % Neut # (Auto) 4.74 (1.7-7.0) K/uL Lymph # (Auto) 2.93 H (0.90-2.90) K/uL [place] # (Auto) 0.70 (0.00-0.90) K/UL Eos # (Auto) 0.24 (0.00-0.50) K/uL Baso # (Auto) 0.05 (0.00-0.30) K/uL Abs Immat Gran (auto) 0.02 (0.00-0.30) K/uL Imm/Tot Granulo (auto) 0.2 % Sodium 132 L (135-149) mmol/L Potassium 4.5 (3.6-5.1) mmol/L Chloride 96 (96-114) mmol/L Carbon Dioxide 29 (20-32) mmol/L Anion Gap 7 (7-15) mEq/L BUN 11 (7-30) mg/dL Creatinine 0.7 (0.5-1.5) mg/dL Estimated Creat Clear 88.37 Estimated GFR 100 ml/min Glucose 109 (60-115) mg/dL Calcium 9.2 (8.4-10.6) mg/dL Total Bilirubin 1.2 (0.1-1.5) mg/dL AST 47 H (12-35) U/L ALT 24 (4-35) U/L Alkaline Phosphatase 82 (40-150) U/L Troponin I (0.01-0.04) ng/mL Total Protein 8.1 (6.0-8.3) g/dL Albumin 4.8 (3.3-5.0) g/dL Lipase 56 (23-300) U/L Urine Color Yellow (Yellow) Urine Appearance Clear (Clear) Urine pH 7.0 (5.0-8.5) Ur Specific [place] 1.010 (1.000-1.030) Urine Protein Negative (Negative) Urine Glucose (UA) Negative (Negative) Urine Ketones Negative (Negative) Urine Blood Negative (Negative) Urine Nitrite Negative (Negative) Urine Bilirubin Negative (Negative) Urine Urobilinogen 0.2 (0.2-1.0) Ur Leukocyte Esterase Trace A (Negative) Urine RBC 0-2 (0-2) Urine WBC 0-2 (0-5) Ur Squamous Epith Cells None (None-Few) Urine Bacteria None (None) Urine HCG, Qual Negative (Negative) SARS-CoV-2 (PCR) Negative SARS-CoV-2 (Negative) Influenza Type A (PCR) Negative PCR FLU A (Negative) Influenza Type B (PCR) Negative PCR FLU B (Negative) RSV (PCR) Negative PCR RSV (Negative) 10/02/24 Range/Units 14:25 WBC (4.50-11.00) K/uL RBC (4.00-5.20) m/uL Hgb (12.0-16.0) gm/dL Hct (33.0-51.0) % MCV (80-100) fL MCH (26-34) pg MCHC (32-36) gm/dL RDW Coeff of Deion (11.5-15.5) % Plt Count (140-440) K/uL Neut % (Auto) (42.0-72.0) % Lymph % (Auto) (20-44) % [place] % (Auto) (0.0-11.0) % Eos % (Auto) (0.0-7.0) % Baso % (Auto) (0.0-3.0) % Neut # (Auto) (1.7-7.0) K/uL Lymph # (Auto) (0.90-2.90) K/uL [place] # (Auto) (0.00-0.90) K/UL Eos # (Auto) (0.00-0.50) K/uL Baso # (Auto) (0.00-0.30) K/uL Abs Immat Gran (auto) (0.00-0.30) K/uL Imm/Tot Granulo (auto) % Sodium (135-149) mmol/L Potassium (3.6-5.1) mmol/L Chloride (96-114) mmol/L Carbon Dioxide (20-32) mmol/L Anion Gap (7-15) mEq/L BUN (7-30) mg/dL Creatinine (0.5-1.5) mg/dL Estimated Creat Clear Estimated GFR ml/min Glucose (60-115) mg/dL Calcium (8.4-10.6) mg/dL Total Bilirubin (0.1-1.5) mg/dL AST (12-35) U/L ALT (4-35) U/L Alkaline Phosphatase (40-150) U/L Troponin I 0.01 (0.01-0.04) ng/mL Total Protein (6.0-8.3) g/dL Albumin (3.3-5.0) g/dL Lipase (23-300) U/L Urine Color (Yellow) Urine Appearance (Clear) Urine pH (5.0-8.5) Ur Specific [place] (1.000-1.030) Urine Protein (Negative) Urine Glucose (UA) (Negative) Urine Ketones (Negative) Urine Blood (Negative) Urine Nitrite (Negative) Urine Bilirubin (Negative) Urine Urobilinogen (0.2-1.0) Ur Leukocyte Esterase (Negative) Urine RBC (0-2) Urine WBC (0-5) Ur Squamous Epith Cells (None-Few) Urine Bacteria (None) Urine HCG, Qual (Negative) SARS-CoV-2 (PCR) (Negative) Influenza Type A (PCR) (Negative) Influenza Type B (PCR) (Negative) RSV (PCR) (Negative) Imaging Data CT scan abdomen and pelvis: Attestation: I have reviewed the pertinent imaging results. Radiologist's impression: Supraumbilical left paramidline fat containing ventral hernia with mild inflammatory changes is likely responsible for the patient`s epigastric and left upper quadrant pain. No other acute or specific finding to explain abdominal pain. Please note that all CT scans at this facility use dose modulation, iterative reconstruction, and/or weight-based dosing when appropriate to reduce radiation dose to as low as reasonably achievable. Dictated by Michael Natarajan MD @ 10/02/2024 3:29:20 PM ECG Data Attestation: I personally reviewed and interpreted this ECG as follows: Prior ECG tracings: available for review Interpretation: Normal sinus rhythm with a rate of 83 beats per minute, first-degree AV block, normal QRS and QTC, no ST or T-wave abnormalities. Appears similar previous EKG on file Discharge Plan Discharge Clinical Impression: Ventral hernia Qualifiers: Obstruction and gangrene presence: without obstruction or gangrene Qualified Code(s): K43.9 - Ventral hernia without obstruction or gangrene Patient Disposition: Home, Self-Care Condition: Stable Instructions: Ventral Hernia Repair (DC) Additional Instructions: Follow-up with general surgery. Their number is [phone]. Take the oxycodone as needed. Also she Tylenol and ibuprofen for pain. The ibuprofen will help with the swelling. put ice over the area and gently massaged to see if he can reduce the hernia herself. If you start to call noticing overlying skin changes such as discoloration return for re-evaluation. Also return for any other new or worsening symptoms. Prescriptions: New oxycodone 5 mg tablet 5 mg PO Q6H PRN (Reason: pain) Qty: 12 0RF ondansetron 4 mg tablet,disintegrating 4 mg PO Q6H Qty: 20 0RF No Action aripiprazole 2 mg tablet 2 mg PO DAILY omeprazole 40 mg capsule,delayed release(DR/EC) 40 mg PO DAILY verapamil 240 mg capsule,ext rel. pellets 24 hr 240 mg PO QPM potassium chloride 20 mEq tablet extended release 40 meq PO DAILY bupropion HCl 150 mg tablet extended release 24 hr 150 mg PO QAM desvenlafaxine succinate 100 mg tablet extended release 24 hr 100 mg PO DAILY desvenlafaxine succinate 25 mg tablet extended release 24 hr 25 mg PO DAILY gabapentin 400 mg capsule 400 mg PO 3XD verapamil 120 mg tablet extended release 120 mg PO DAILY chlorthalidone 25 mg tablet 25 mg PO DAILY rosuvastatin 20 mg tablet See Rx Instructions .ROUTE .COMPLEX Qty: 90 3RF Dose Instruction: TAKE ONE TABLET BY MOUTH AT BEDTIME Rx Instructions: TAKE ONE TABLET BY MOUTH AT BEDTIME levothyroxine 112 mcg tablet 112 mcg PO DAILY Qty: 30 0RF semaglutide (weight loss) 1 mg/0.5 mL pen injector 1 mg subcut QWEEK Qty: 2 0RF Follow Up/Referrals: Maria Fernanda Yusuf CNP [Primary Care Provider] - Stand Alone Forms: My[facility] Info Instructions
[2024-10-02 15:42] LABS: Ur HCG Qualitative* Negative (Negative)
[2024-10-02 16:15] VITALS: BP 121/71; PULSE 82; RESP 16; TEMP 36.8; O2SAT 98
[2024-10-02 16:29] VITALS: BP 125/74; PULSE 85; RESP 16; TEMP 36.8; O2SAT 98
[2024-10-02 16:30] VITALS: BP 125/74; PULSE 85; RESP 16; TEMP 36.8
== END 2024-10-02 16:30 | disposition home or self-care (01) ==
PROVIDERS: Emergency Provider Student in an Organized Health Care Education/Training Program; PCP Nurse Practitioner Family
DX: K43.9 Ventral hernia without obstruction or gangrene (principal)
CPT/HCPCS: 36415; 74177; 80053; 81001; 81025; 83690; 84484; 85025; 87086; 87631; 93005; 96374; 99284; 99285; A9270; J2270; Q9967

== ENCOUNTER 2024-10-18 06:13 | Day surgery (SDC) | payer OTHER, SELFPAY ==
[2024-10-18] VITALS (14 sets, daily range): BP systolic 100–141; BP diastolic 63–77; PULSE 72–95; RESP 14–18; TEMP 36.3–36.7; O2SAT 76–100; BMI 34.2
[2024-10-18] MEDS: LACTATED RINGERS 1000 ML 1,000 ML 100 ML IV (06:45)
[2024-10-18] MEDS: SODIUM CHLORIDE 0.9 % (FLUSH) 10 ML SYRINGE IVF (06:53)
--- NOTE | 2024-10-18 07:17 | W.PM.H&PU ---
History & Physical Update History & Physical Update H&P Reviewed and patient assessed: No changes noted
--- NOTE | 2024-10-18 07:20 | PM.GSPRC ---
Operative Note Date of procedure: 10/18/24 Pre-op diagnosis: 1. Symptomatic ventral/epigastric hernia. Post-op diagnosis: Same Type of Procedure: 1. Open ventral hernia repair with mesh. Indications: 58-year-old female was seen in clinic after visit to emergency room for evaluation of ventral hernia. Patient was at work prior to her presentation is started to feel pain in her mid abdomen. She noticed a painful bulge. She left work and came to the emergency room. An abdominal CT was obtained during her workup that showed supraumbilical fat containing hernia. There was no evidence of bowel obstruction. Patient denies similar episodes of pain. She continued to have pain after that episode. On clinical exam patient had tenderness to palpation mid way between epigastrium and umbilicus but there was no well-defined bulge. The patient standing up and doing Valsalva the bulge was maybe more palpable but not well defined. Given patient's clinical history and her physical exam as well as CT findings, an open ventral/epigastric hernia repair was recommended. The procedure was discussed in detail. The risks associated procedure including infection, bleeding, injury to intra-abdominal organs, and hernia recurrence were all discussed with the patient, and she agreed to proceed. Procedure Description: After discussing the risks and benefits of the procedure, the patient signed informed consent.? The operative site was marked and the patient was brought to the operating room and placed on the operating table in supine position.? Care was taken to pad the patient's pressure points.?? The patient was then intubated by anesthesia.?? The operative site was then prepped and draped in the usual sterile fashion.? A time-out was then performed. A vertical skin incision was made with a scalpel. Subcutaneous fat was divided with cautery down to the anterior fascia. The ventral fascial defect was identified and preperitoneal fat was incarcerated through the fascial defect. This preperitoneal fat was then mobilized of the fascia with cautery and reduced. I then developed preperitoneal space for mesh placement. This was done with cautery. The fascial defect was approximately 2.5 cm in its largest dimension. I used Ventralex ST medium sized mesh for repair. The mesh was placed into preperitoneal space and secured in place with interrupted 0-0 Nurolon sutures. The mesh tails were then excised and removed. The fascia was reapproximated over the mesh with a running 2-0 Vicryl suture. Local anesthetic was injected in subcutaneous space. Subcutaneous fat was then reapproximated with interrupted Vicryl sutures. The dermis was reapproximated with interrupted 3-0 Vicryl sutures. The skin was closed with a running 4-0 Monocryl stitch. Steri-Strips and sterile dressing were placed over the incision, and secured in place with tape. Sterile dressings were then applied. ? The patient was then woken and transported to the recovery area in stable condition. ? The patient tolerated the procedure well. Findings: 2.5 cm defect with weakened surrounding fascia. Repaired with Ventralex ST mesh. Implants: Ventralex ST mesh Anesthesia: GETRonni Surgeon: La Nena Bueno MD Estimated blood loss (mL): 5 Condition: stable Disposition: PACU
[2024-10-18] MEDS: CEFAZOLIN 2 GM INJ IVP (07:31)
[2024-10-18] MEDS: LIDOCAINE 1%-EPI 1:100,000 20 ML INFILTRATI (08:04)
[2024-10-18] MEDS: BUPIVACAINE 0.25% 30 ML INJECTION (08:04)
--- NOTE | 2024-10-18 08:24 | W.ANESCHARGE ---
Anesthesia Charges Start Date/Time Anesthesia Start Date: 10/18/24 Anesthesia Start Time: 07:22 Stop Date/Time Anesthesia Stop Date: 10/18/24 Anesthesia Stop Time: 08:27 Coding CPT Codes CPT Codes: ANESTH REPAIR OF HERNIA - 30974 ([id number]) P2 - PATIENT W/MILD SYST DISEASE, QK - SENIOR QUALITY ASSURANCE ENGINEER 2-4 CNCRNT ANES PROC, QX - QA TESTER SVC W/ MD MED DIRECTION
--- NOTE | 2024-10-18 08:31 | W.ANESCHARGE ---
Anesthesia Charges Start Date/Time Anesthesia Start Date: 10/18/24 Anesthesia Start Time: 07:22 Stop Date/Time Anesthesia Stop Date: 10/18/24 Anesthesia Stop Time: 08:27 Coding CPT Codes CPT Codes: ANESTH REPAIR OF HERNIA - 17978 ([id number]) P2 - PATIENT W/MILD SYST DISEASE, QK - STRAND BUNCHER FINE WIRE 2-4 CNCRNT ANES PROC, QX - LABOR EMPLOYMENT ASSOCIATE SVC W/ MD MED DIRECTION
[2024-10-18] MEDS: fentaNYL 100 MCG/2 ML inj 50 MCG IVP (08:44)
[2024-10-18] MEDS: HYDROCODONE-ACETAMIN 5-325 MG 1 TAB PO (09:29)
== END 2024-10-18 10:59 | disposition home or self-care (01) ==
PROVIDERS: PCP Nurse Practitioner Family; Visit Provider Surgery
PROC: (CPT 49591; principal; 2024-10-18 07:30)
DX: K43.9 Ventral hernia without obstruction or gangrene (principal)
CPT/HCPCS: 49591; 00750; A9270; C1781; J0665; J0690; J1100; J1200; J2250; J2371; J2405; J2704; J3010; J3490; J7120

== ENCOUNTER 2024-11-15 15:17 | Outpatient (CLI) | payer OTHER, SELFPAY | END 2024-11-15 15:18 | disposition home or self-care (01) | LOC: NFLDREF 11-20 10:25 | PROVIDERS: PCP Nurse Practitioner Family; Referring Provider Nurse Practitioner Family; Visit Provider Nurse Practitioner Family | DX: R30.0 Dysuria (principal); N30.00 Acute cystitis without hematuria | CPT/HCPCS: 87086 ==

== ENCOUNTER 2025-01-24 15:07 | Outpatient (CLI) | payer OTHER, SELFPAY | END 2025-01-24 15:08 | disposition home or self-care (01) | LOC: NFLDREF 01-27 10:26 | PROVIDERS: PCP Nurse Practitioner Family; Referring Provider Nurse Practitioner Family; Visit Provider Physician Assistant Medical | DX: N39.0 Urinary tract infection, site not specified (principal) | CPT/HCPCS: 87086; 87186 ==

== ENCOUNTER 2025-05-18 10:29 | Outpatient (CLI) | payer OTHER, SELFPAY ==
[2025-05-20 03:24] LABS: HPV Source Cervix
[2025-05-20 15:27] LABS: HPV Genotype 16 by TMA Detected; HPV Genotype 18/45 by TMA Not Detected
[2025-05-30 10:44] LABS: Pap Test Digital Imaging Done; Pap Test Reviewed by Pathologi Done
== END 2025-05-18 10:30 | disposition home or self-care (01) ==
PROVIDERS: PCP Nurse Practitioner Family; Visit Provider Nurse Practitioner Family
DX: Z12.4 Encounter for screening for malignant neoplasm of cervix (principal); Z11.51 Encounter for screening for human papillomavirus (HPV); E78.5 Hyperlipidemia, unspecified; I10 Essential (primary) hypertension; E03.9 Hypothyroidism, unspecified
CPT/HCPCS: 80053; 80061; 84439; 84443; 87624; 87625; 88141; 88142; 88175

== ENCOUNTER 2025-05-25 10:52 | Outpatient (CLI) | payer OTHER, SELFPAY ==
--- NOTE | 2025-05-25 11:00 | CRLHL7_ITS ---
For Patients: As a result of the Century Cures Act, medical imaging exams and procedure reports are released immediately into your electronic medical record. You may view this report before your referring provider. If you have questions, please contact your health care provider. CLINICAL HISTORY: Concern of lump in the region of the vagina Technique: Limited pelvic ultrasound endovaginal. Grayscale and color Doppler FINDINGS/IMPRESSION: No obvious mass or cyst is seen in the region of the vagina. Dictated by Angelica Tan MD @ 05/28/2025 2:01:32 PM (Electronically Signed)
== END 2025-05-25 10:53 | disposition home or self-care (01) ==
LOC: US 10:52
PROVIDERS: PCP Nurse Practitioner Family; Visit Provider Nurse Practitioner Family
DX: N94.9 Unspecified condition associated with female genital organs and menstrual cycle (principal)
CPT/HCPCS: 76857

== ENCOUNTER 2025-06-25 14:10 | Outpatient (CLI) | payer OTHER, SELFPAY | END 2025-06-25 14:11 | disposition home or self-care (01) | LOC: NFLDREF 06-29 06:05 | PROVIDERS: PCP Nurse Practitioner Family; Referring Provider Nurse Practitioner Family; Visit Provider Family Medicine | DX: N39.0 Urinary tract infection, site not specified (principal) | CPT/HCPCS: 87086 ==